=== PATIENT | female | born 1955 | race Caucasian/White ===

== ENCOUNTER 2016-11-27 08:18 | Emergency (ER) | payer MEDICAID ==
--- NOTE | 2016-11-27 09:32 | ED Physician Documentation ---
PD HPI NVD - Stated complaint Stated Complaint: VOMITING - Chief complaint Chief Complaint: Abd Pain - History obtained from History obtained from: Patient - History of Present Illness Timing - onset: How many days ago (3) Timing - duration: Days (3) Timing - details: Gradual onset, Still present Associated symptoms: Dizzy. No: Fever, Abdominal pain Contributing factors: No: Sick contact, Bad food Similar symptoms before: Diagnosis (intractable vomiting.) Recently seen: Not recently seen Review of Systems Constitutional: denies: Fever Eyes: denies: Decreased vision Ears: denies: Ear pain Nose: denies: Congestion Throat: denies: Sore throat Cardiac: denies: Chest pain / pressure, Palpitations Respiratory: denies: Dyspnea, Cough GI: reports: Abdominal Pain, Nausea, Vomiting : denies: Dysuria, Frequency PD PAST MEDICAL HISTORY - Past Medical History Cardiovascular: Hypertension Respiratory: None Neuro: None Endocrine/Autoimmune: None Psych: None Musculoskeletal: Osteoarthritis, Fatigue, Chronic back pain - Past Surgical History Past Surgical History: No - Present Medications Home Medications: Ambulatory Orders Medication Instructions Recorded Confirmed Promethazine [Phenergan] 25 - 50 mg PO Q6H PRN #10 tab 11/27/16 - Allergies Allergies/Adverse Reactions: Allergies Allergy/AdvReac Type Severity Reaction Status Date / Time losartan potassium * Allergy Hives Verified 11/27/16 08:25 [From Cozaar] Penicillins Allergy Unknown Verified 11/27/16 08:24 - Social History Does the pt smoke?: No Smoking Status: Former smoker Does the pt drink ETOH?: No Does the pt have substance abuse?: No - Immunizations Immunizations are current?: Yes PD ED PE NORMAL - Vitals Vital signs reviewed: Yes (hypertensive and tachycardic) - General General: Alert and oriented X 3, Well developed/nourished, Other (The patient is wretching loudly in the ED. ) - HEENT HEENT: Atraumatic, PERRL, EOMI, Other (dry mucous membranes) - Neck Neck: Supple, no meningeal sign, No bony TTP - Cardiac Cardiac: No murmur, Other (tachy ) - Respiratory Respiratory: No respiratory distress, Clear bilaterally - Abdomen Abdomen: Soft, Other (mild epigastric tenderness) - Back Back: No CVA TTP, No spinal TTP - Derm Derm: Normal color, Warm and dry, No rash - Extremities Extremities: No deformity, No edema - Neuro Neuro: No motor deficit - Psych Psych: Normal mood, Normal affect Results - Vitals Vitals: Vital Signs - 24 hr 11/27/16 11/27/16 11/27/16 08:25 10:00 11:00 Temperature 36.5 C Heart Rate 126 H 108 H 112 H Respiratory 22 18 20 Rate Blood Pressure 138/99 H 184/100 H 201/110 H O2 Saturation 99 96 96 11/27/16 11/27/16 11/27/16 12:15 13:45 14:00 Temperature Heart Rate 110 H 102 H 98 Respiratory 16 12 18 Rate Blood Pressure 162/107 H 172/106 H 172/106 H O2 Saturation 97 96 Oxygen O2 Source Room air - EKG (time done) 1925 Rate: Rate (enter#) (120) Rhythm: Sinus tachycardia, LAE Intervals: Prolonged QT QRS: LVH Compare to prior EKG: Changed from prior EKG (SPT 16 rate has increased. ) Computer interpretation: Agree with computer - Labs Labs: Laboratory Tests 11/27/16 11/27/16 11/27/16 09:12 09:30 09:30 WBC 21.7 H RBC 5.94 H Hgb 17.0 H Hct 50.4 H MCV 84.8 MCH 28.7 MCHC 33.8 RDW 14.2 Plt Count 247 MPV 10.1 Neut # 14.3 H Lymph # 6.0 H [place] # 1.4 H Eos # 0.0 Baso # 0.0 Absolute Nucleated RBC 0.00 Nucleated RBCs 0.0 Manual Slide Review Indicated RBC Morph Micro Appear 1+ ANISOCYTOSIS Sodium 131 L Potassium 3.0 L Chloride 88 L Carbon Dioxide 26 Anion Gap 17.0 H BUN 39 H Creatinine 1.4 H Estimated GFR (MDRD) 38 L Glucose 179 H Calcium 9.9 Magnesium 2.3 Total Bilirubin 1.5 H AST 65 H ALT 42 Alkaline Phosphatase 72 Troponin I Total Protein 8.7 H Albumin 5.5 Globulin 3.2 Albumin/Globulin Ratio 1.7 Lipase 30 Urine Color Urine Clarity Urine pH Ur Specific [place] Urine Protein Urine Glucose (UA) Urine Ketones Urine Occult Blood Urine Nitrite Urine Bilirubin Urine Urobilinogen Ur Leukocyte Esterase Urine RBC Urine WBC Ur Squamous Epith Cells Urine Bacteria Ur Microscopic Review Urine Culture Comments 11/27/16 11/27/16 11/27/16 09:30 09:45 11:48 WBC RBC Hgb Hct MCV MCH MCHC RDW Plt Count MPV Neut # Lymph # [place] # Eos # Baso # Absolute Nucleated RBC Nucleated RBCs Manual Slide Review RBC Morph Micro Appear Sodium Potassium Chloride Carbon Dioxide Anion Gap BUN Creatinine Estimated GFR (MDRD) Glucose Calcium Magnesium Total Bilirubin AST ALT Alkaline Phosphatase Troponin I 0.35 0.28 Total Protein Albumin Globulin Albumin/Globulin Ratio Lipase Urine Color DARK YELLOW Urine Clarity CLEAR Urine pH 5.5 Ur Specific [place] >=1.030 H Urine Protein 100 H Urine Glucose (UA) NEGATIVE Urine Ketones TRACE Urine Occult Blood MODERATE H Urine Nitrite NEGATIVE Urine Bilirubin NEGATIVE Urine Urobilinogen 0.2 (NORMAL) Ur Leukocyte Esterase TRACE H Urine RBC 0-5 Urine WBC 4-5 Ur Squamous Epith Cells FEW Squamous Urine Bacteria Many H Ur Microscopic Review INDICATED Urine Culture Comments INDICATED 11/27/16 17:36 WBC RBC Hgb Hct MCV MCH MCHC RDW Plt Count MPV Neut # Lymph # [place] # Eos # Baso # Absolute Nucleated RBC Nucleated RBCs Manual Slide Review RBC Morph Micro Appear Sodium 134 L Potassium 3.7 Chloride 98 L Carbon Dioxide 28 Anion Gap 8.0 BUN 28 H Creatinine 0.9 Estimated GFR (MDRD) 63 L Glucose 109 H Calcium 8.2 L Magnesium Total Bilirubin AST ALT Alkaline Phosphatase Troponin I Total Protein Albumin Globulin Albumin/Globulin Ratio Lipase Urine Color Urine Clarity Urine pH Ur Specific [place] Urine Protein Urine Glucose (UA) Urine Ketones Urine Occult Blood Urine Nitrite Urine Bilirubin Urine Urobilinogen Ur Leukocyte Esterase Urine RBC Urine WBC Ur Squamous Epith Cells Urine Bacteria Ur Microscopic Review Urine Culture Comments PD MEDICAL DECISION MAKING - ED course Complexity details: reviewed old records, reviewed results, re-evaluated patient , considered differential, d/w patient ED course: 61 y/o female with vomiting and dehydration is found to have hypokalemia as well. She is not initially able to do oral potassium and she is given K+ rider X 2 and her K+ is up to 3.7 . She feels much improved and we will send her home with a script for phenergan. She was initially considered for hospitalization, the hospitalist was consulted and recommended attempting outpatient management as her vomiting was under control. She did have an initial trop elevated to 0.35 and the repeat was 0.28 and I have ascribed this to the persistent tachycardia that is now resolved. Departure - Departure Disposition: Home, Self Care Clinical Impression: Dehydration, Hyponatremia Vomiting Qualifiers: Vomiting type: unspecified Vomiting Intractability: non-intractable Nausea presence: with nausea Qualified Code(s): R11.2 - Nausea with vomiting, unspecified Instructions: ED Dehydration, ED Nausea Vomiting Follow-Up: Sasha Wilcox ARNP [Primary Care Provider] - Prescriptions: Promethazine [Phenergan] 25 - 50 mg PO Q6H PRN #10 tab PRN Reason: Nausea / Vomiting
[2016-11-27] MEDS ORDERED: ONDANSETRON 4 MG/2 ML VIAL ONE (09:37)
[2016-11-27 09:40] LABS: BASOPHILS % (AUTO) 0.1 %; EOSINOPHILS % (AUTO) 0.1 %; HCT - HEMATOCRIT 50.4 % (37.0-47.0); LYMPHOCYTES % (AUTO) 27.6 %; MEAN CORPUSCULAR HEMOGLOBIN 28.7 pg (27.0-31.0); MEAN CORPUSCULAR HGB CONC 33.8 g/dL (32.0-36.0); MEAN CORPUSCULAR VOLUME 84.8 fL (81.0-99.0); MEAN PLATELET VOLUME 10.1 fL (7.9-10.8); MONOCYTES # (AUTO) 1.4 10^3/uL (0.0-1.0); MONOCYTES % (AUTO) 6.3 %; NEUTROPHILS # (AUTO) 14.3 10^3/uL (1.5-6.6); NEUTROPHILS % (AUTO) 65.9 %; RED BLOOD COUNT 5.94 10^6/uL (4.20-5.40); RED CELL DISTRIBUTION WIDTH 14.2 % (12.0-15.0); UNCORRECTED WHITE BLOOD COUNT 21.7 x10^3/uL; WHITE BLOOD COUNT 21.7 x10^3/uL (4.8-10.8)
[2016-11-27] MEDS: ONDANSETRON 4 MG/2 ML VIAL IVP STA (09:46)
[2016-11-27] MEDS: SODIUM CHLORIDE 0.9% 1,000 ML IV ONE ×2 (09:47→14:15)
[2016-11-27 09:53] LABS: ALBUMIN/GLOBULIN RATIO 1.7 (1.0-2.2); BILIRUBIN,TOTAL 1.5 mg/dL (0.2-1.0); CALCIUM 9.9 mg/dL (8.5-10.3); CREATININE 1.4 mg/dL (0.4-1.0); TOTAL PROTEIN 8.7 g/dL (6.7-8.2)
[2016-11-27] MEDS ORDERED: PROMETHAZINE 25 MG/1 ML VIAL ONE (10:12)
[2016-11-27] MEDS: PROMETHAZINE INJ 25 MG in SODIUM CHLORIDE 0.9% 50 ML IV STA (10:17)
[2016-11-27 10:23] LABS: PH,URINE 5.5 PH (5.0-7.5)
[2016-11-27 10:30] LABS: BILIRUBIN,URINE NEGATIVE (NEGATIVE); UA w/ MICROSCOPIC CHARGE YES
[2016-11-27 10:42] LABS: UR CULTURE IF IND INDICATED
[2016-11-27] MEDS ORDERED: POTASSIUM BICARB 25 MEQ TABLET PO ONE (11:06)
[2016-11-27] MEDS ORDERED: MAGNESIUM SULFATE 2 GRAM 50 ML IV ONE (11:06)
[2016-11-27] MEDS: POTASSIUM BICARB 25 MEQ TABLET PO STA (11:12)
[2016-11-27] MEDS: MAGNESIUM SULFATE 2 GRAM 50 ML IV ONE (11:12)
[2016-11-27] MEDS ORDERED: HYDROmorphone 1 MG/ML SYRINGE ONE (14:07)
[2016-11-27] MEDS ORDERED: metroNIDAZOLE 500 MG/100 ML 100 ML ONE (14:08)
[2016-11-27] MEDS ORDERED: POTASSIUM CHLOR 10 MEQ/100 ML 100 ML IV ONE ×2 (14:49→16:14)
[2016-11-27] MEDS: POTASSIUM CHLOR 10 MEQ/100 ML 100 ML IV SCH (14:54)
[2016-11-27] MEDS: POTASSIUM CHLOR 10 MEQ/100 ML 100 ML IV ONE (16:19)
[2016-11-27 18:03] LABS: CALCIUM 8.2 mg/dL (8.5-10.3); CREATININE 0.9 mg/dL (0.4-1.0); POTASSIUM 3.7 mmol/L (3.5-5.0)
[2016-11-27 18:29] VITALS: BP 162/101
== END 2016-11-27 18:45 | disposition home or self-care (01) ==
LOC: ED 08:18
DX: E86.0 Dehydration (principal); E87.1 Hypo-osmolality and hyponatremia; I10 Essential (primary) hypertension; M19.90 Unspecified osteoarthritis, unspecified site; Z87.891 Personal history of nicotine dependence
CPT/HCPCS: 36415; 80048; 80053; 81001; 81003; 83690; 83735; 84484; 85025; 87086; 93005; 93010; 96365; 96375; 99284

== ENCOUNTER 2016-12-02 13:55 | Emergency (ER) | payer MEDICAID ==
[2016-12-02] MEDS ORDERED: SODIUM CHLORIDE 0.9% 1,000 ML IV ONE (14:33)
[2016-12-02] MEDS ORDERED: METOPROLOL SUCCINATE 25 MG TABLET PO STA (15:59)
[2016-12-02] MEDS ORDERED: ASPIRIN CHEW 81 MG TABLET PO STA (15:59)
[2016-12-02] MEDS ORDERED: LACTATED RINGERS 1,000 ML IV STA (16:06)
== END 2016-12-02 16:56 | disposition home or self-care (01) ==
DX: I10 Essential (primary) hypertension (principal); R06.00 Dyspnea, unspecified; R11.2 Nausea with vomiting, unspecified; R53.1 Weakness; R53.83 Other fatigue; Z91.14 Patient's other noncompliance with medication regimen; Z87.891 Personal history of nicotine dependence
CPT/HCPCS: 36415; 71010; 80053; 82550; 82553; 83690; 84484; 85025; 85379; 93005; 93010; 96360; 96361; 99284; 99285; A9270

== ENCOUNTER 2017-06-18 09:36 | Inpatient (IN) | payer MEDICAID ==
[2017-06-18] MEDS ORDERED: SODIUM CHLORIDE 0.9% 1,000 ML IV ONE ×2 (11:37→13:55)
[2017-06-18] MEDS ORDERED: ONDANSETRON 4 MG/2 ML VIAL IVP STA (11:37)
[2017-06-18 11:45] LABS: BASOPHILS # (AUTO) 0.1 10^3/uL (0.0-0.1); BASOPHILS % (AUTO) 0.3 %; HCT - HEMATOCRIT 50.8 % (37.0-47.0); HGB - HEMOGLOBIN 16.8 g/dL (12.0-16.0); LYMPHOCYTES % (AUTO) 21.6 %; MEAN CORPUSCULAR HEMOGLOBIN 28.2 pg (27.0-31.0); MEAN CORPUSCULAR VOLUME 85.4 fL (81.0-99.0); MEAN PLATELET VOLUME 9.8 fL (7.9-10.8); MONOCYTES # (AUTO) 1.3 10^3/uL (0.0-1.0); MONOCYTES % (AUTO) 5.6 %; NEUTROPHILS # (AUTO) 16.9 10^3/uL (1.5-6.6); NEUTROPHILS % (AUTO) 72.5 %; NUCLEATED RED BLOOD CELLS AUTO 0.1 /100WBC; RED BLOOD COUNT 5.95 10^6/uL (4.20-5.40); RED CELL DISTRIBUTION WIDTH 14.3 % (12.0-15.0); UNCORRECTED WHITE BLOOD COUNT 23.3 x10^3/uL; WHITE BLOOD COUNT 23.3 x10^3/uL (4.8-10.8)
[2017-06-18] MEDS ORDERED: ONDANSETRON 4 MG/2 ML VIAL ONE (11:46)
[2017-06-18 12:00] LABS: ALBUMIN/GLOBULIN RATIO 1.6 (1.0-2.2); CALCIUM 10.3 mg/dL (8.5-10.3); POTASSIUM 3.9 mmol/L (3.5-5.0); TOTAL PROTEIN 9.9 g/dL (6.7-8.2)
[2017-06-18 12:37] LABS: PLATELET ESTIMATE, MANUAL NORMAL (130-450,000) (NORMAL); PLATELET MORPHOLOGY NORMAL APPEARANCE (NORMAL); WBC MORPHOLOGY (MULTIPLE) NORMAL APPEARANCE (NORMAL)
[2017-06-18] MEDS ORDERED: PROMETHAZINE INJ 25 MG in SODIUM CHLORIDE 0.9% 50 ML IV STA ×2 (13:04→16:30)
[2017-06-18] MEDS ORDERED: PROMETHAZINE 25 MG/1 ML VIAL ONE (13:22)
--- NOTE | 2017-06-18 16:14 | ED Physician Documentation ---
History of Present Illness - Stated complaint Stated Complaint: VOMITING - Chief complaint Chief Complaint: Abd Pain - Additonal information Additional information: pt with a long hx of cyclic vomiting syndrome to ER today with several days of intractable vomiting no sig abd pain no diarrhea no bad food travel sick contacts etc just like her prior episodes of same she had PO phenergan but could not keep it down she called her PMD for MS phenergan but PMD sent her to the ER for eval Review of Systems Constitutional: denies: Fever, Chills Throat: denies: Sore throat Cardiac: denies: Chest pain / pressure Respiratory: denies: Dyspnea GI: reports: Nausea, Vomiting. denies: Abdominal Pain, Diarrhea : denies: Now EGA Neurologic: reports: Generalized weakness Endocrine: denies: Easy bruising / bleeding Immunocompromised: denies: Immunocompromised PD PAST MEDICAL HISTORY - Past Medical History Cardiovascular: Hypertension Respiratory: None Neuro: None Endocrine/Autoimmune: None Psych: None Musculoskeletal: Osteoarthritis, Fatigue, Chronic back pain - Past Surgical History Past Surgical History: No - Present Medications Home Medications: Ambulatory Orders Medication Instructions Recorded Confirmed Promethazine [Phenergan] 25 - 50 mg PO Q6H PRN #10 tab 11/27/16 06/18/17 Metoprolol Succinate 25 mg PO DAILY #30 tab.er.24h 12/02/16 06/18/17 - Allergies Allergies/Adverse Reactions: Allergies Allergy/AdvReac Type Severity Reaction Status Date / Time losartan potassium * Allergy Hives Verified 11/27/16 08:25 [From Cozaar] Penicillins Allergy Unknown Verified 11/27/16 08:24 - Social History Does the pt smoke?: No Smoking Status: Former smoker Does the pt drink ETOH?: No Does the pt have substance abuse?: No - Immunizations Immunizations are current?: Yes - POLST Patient has POLST: No PD ED PE NORMAL - Vitals Vital signs reviewed: Yes - General General: Alert and oriented X 3, Other (retching) - HEENT HEENT: PERRL - Neck Neck: Supple, no meningeal sign - Cardiac Cardiac: RRR - Respiratory Respiratory: No respiratory distress - Abdomen Abdomen: Soft, Non tender - Derm Derm: Normal color - Neuro Neuro: Alert and oriented X 3 Results - Vitals Vitals: Vital Signs - 24 hr 06/18/17 06/18/17 06/18/17 09:38 14:00 16:45 Temperature 36.0 C L Heart Rate 128 H 111 H 106 H Respiratory 22 18 18 Rate Blood Pressure 199/119 H 181/107 H 194/113 H O2 Saturation 98 98 98 Oxygen O2 Source Room air - EKG (time done) 1303 Rate: Rate (enter#) (115) Rhythm: Sinus tachycardia [place]: Normal Intervals: Prolonged QT Ischemia: Non specific changes - Labs Labs: Laboratory Tests 06/18/17 06/18/17 06/18/17 11:30 11:30 11:30 WBC 23.3 H RBC 5.95 H Hgb 16.8 H Hct 50.8 H MCV 85.4 MCH 28.2 MCHC 33.0 RDW 14.3 Plt Count 230 MPV 9.8 Neut # 16.9 H Lymph # 5.0 H [place] # 1.3 H Eos # 0.0 Baso # 0.1 Absolute Nucleated RBC 0.03 Nucleated RBCs 0.1 Manual Slide Review Indicated WBC Morphology NORMAL APPEARANCE Platelet Estimate NORMAL (130-450,000) Platelet Morphology NORMAL APPEARANCE RBC Morph Micro Appear NORMAL APPEARANCE Sodium 131 L Potassium 3.9 Chloride 89 L Carbon Dioxide 27 Anion Gap 15.0 H BUN 28 H Creatinine 1.0 Estimated GFR (MDRD) 56 L Glucose 168 H Calcium 10.3 Magnesium Total Bilirubin 1.0 AST 44 H ALT 32 Alkaline Phosphatase 87 Troponin I 0.05 Total Protein 9.9 H Albumin 6.1 H Globulin 3.9 Albumin/Globulin Ratio 1.6 Lipase 22 06/18/17 06/18/17 14:14 14:15 WBC RBC Hgb Hct MCV MCH MCHC RDW Plt Count MPV Neut # Lymph # [place] # Eos # Baso # Absolute Nucleated RBC Nucleated RBCs Manual Slide Review WBC Morphology Platelet Estimate Platelet Morphology RBC Morph Micro Appear Sodium Potassium Chloride Carbon Dioxide Anion Gap BUN Creatinine Estimated GFR (MDRD) Glucose Calcium Magnesium 2.0 Total Bilirubin AST ALT Alkaline Phosphatase Troponin I 0.06 Total Protein Albumin Globulin Albumin/Globulin Ratio Lipase PD MEDICAL DECISION MAKING - ED course ED course: labs notable for inc WBC (was 21K another visit for similar sx) low na, midl elev glucose, trop 0.5 and 0.6 (both WNL) EKG notable for prolonged QT - so did not given any more zofran and switched to phenergan after several l NS and several IV doses of antiemetics pt not retching but still not able to tolerate much PO she is very worried to try going home because a year or two ago she was sent home and got worse and we she returned her electrolytes were so abnormal and she had a + trop and she need to be transferred to a tertiary care facility so will place in obs Departure - Departure Disposition: ED Place in Observation Clinical Impression: Hyponatremia, Dehydration, Prolonged QT interval Cyclic vomiting syndrome Qualifiers: Vomiting Intractability: intractable Nausea presence: with nausea Qualified Code(s): G43.A1 - Cyclical vomiting, intractable Hypertension Qualifiers: Hypertension type: unspecified Qualified Code(s): I10 - Essential (primary) hypertension Leukocytosis Qualifiers: Leukocytosis type: other Qualified Code(s): D72.828 - Other elevated white blood cell count Condition: Fair Discharge Date/Time: 06/18/17 17:33
[2017-06-18] MEDS ORDERED: SODIUM CHLORIDE FLUSH 0.9% 10 ML SYRINGE IVP PRN (16:59)
[2017-06-18] MEDS ORDERED: HYDROcod/ACETAM 5/325 MG TABLET PO PRN (16:59)
[2017-06-18] MEDS ORDERED: HYDROmorphone 1 MG/ML SYRINGE IVP PRN (16:59)
[2017-06-18] MEDS ORDERED: ACETAMINOPHEN 325 MG TABLET PO PRN (16:59)
--- NOTE | 2017-06-18 18:05 | CT Preliminary Report ---
Exam: CT KUB IMPRESSION: 1. Moderate hiatal hernia. 2. Moderate diverticulosis without diverticulitis or other acute abdominal abnormality. 3. Lumbar dextroscoliosis. 4. Lower edge of a well-defined lower right breast density noted. [facility] SITE ID: [id number]
--- NOTE | 2017-06-18 18:07 | CT Report ---
EXAM: CT ABDOMEN AND PELVIS EXAM DATE: 06/18/2017 05:42 PM. CLINICAL HISTORY: Nausea, vomiting. COMPARISONS: None. TECHNIQUE: Routine helical CT imaging was performed through the abdomen and pelvis. IV contrast: None . Enteric contrast: No. Reconstructions: Coronal and sagittal. In accordance with CT protocol optimization, one or more of the following dose reduction techniques w ere utilized for this exam: automated exposure control, adjustment of mA and/or KV based on patient s ize, or use of iterative reconstructive technique. FINDINGS: Lung Bases: Lower extent of a well-defined lower right breast density noted. Moderate hiatal hernia. Otherwise unremarkable. Liver: Normal. No masses. Gallbladder/Bile Ducts: Unremarkable. Spleen: Normal. Pancreas: Normal. Adrenal Glands: Normal. Kidneys: Normal. No masses or hydronephrosis. Peritoneal Cavity/Bowel: Moderate diverticulosis. No free fluid, free air or adenopathy. No masses or acute inflammatory process. Nonvisualized appendix. Pelvic Organs: Reproductive organs and bladder are unremarkable. Vasculature: No aneurysms or other significant abnormality. Bones: Lumbar dextroscoliosis. No degenerative disk disease. Other: Small fat-containing right [place]chdalek hernia noted. IMPRESSION: 1. Moderate hiatal hernia. 2. Moderate diverticulosis without diverticulitis or other acute abdominal abnormality. 3. Lumbar dextroscoliosis. 4. Lower edge of a well-defined lower right breast density noted. [facility] Referring Provider Line: [phone] SITE ID: [id number]
[2017-06-18] MEDS: SODIUM CHLORIDE 0.9% 1,000 ML IV SCH (18:19)
[2017-06-18] MEDS: PANTOPRAZOLE 40 MG VIAL IVP SCH (18:19)
[2017-06-18] MEDS: SODIUM CHLORIDE FLUSH 0.9% 10 ML SYRINGE IVP SCH (18:19)
[2017-06-18] MEDS: PROCHLORPERAZINE 10 MG/2 ML VIAL IVP PRN (18:19)
[2017-06-18] MEDS ORDERED: hydrALAZINE INJ 20 MG/ML VIAL IVP SCH (18:30)
--- NOTE | 2017-06-18 20:27 | HISTORY & PHYSICAL EXAMINATION ---
DATE OF ADMISSION: 06/18/2017 HISTORY OF PRESENT ILLNESS: This is a 62-year-old white female with a history of hypertension and int ermittent severe nausea and vomiting, for which she has had no workup and no etiology determined yet. The patient was admitted here approximately a year ago with unrelenting vomiting and electrolyte abn ormalities, and required IV hydration and anti-emetics. The patient states she has never had a gastro enterologist for evaluation. The patient does deny that any medications create the nausea and vomitin g, but suspects that she may have a "nervous stomach," since she has had nausea and vomiting when she was a child and in an anxious situation (the patient had to take carbonated beverages in the car for stomach upset and vomiting when she was very little). Now, she has noticed that over at times of str ess (such as the of her mother and stress over buying a house), she develops unrelenting vomiti ng, which does not respond to p.o. fluids and bowel rest. Two days ago, the patient went out of town to help her friend move into a new house and states that t here was stress because of the traffic in the area and unloading. While at new residence of the [facility], she developed slight abdominal pain and nausea, but the following day had severe nausea and explos chidi vomiting which did not respond to [id number] Phenergan. She came home and tried to take onl y liquids and chicken soup, and everything that she ingested came up with vomiting. There was no haim temesis. She denies any constipation or diarrhea. There was no fever. She denies any rash, cough with sputum production, exposure to anyone with the flu, and travel to an exotic area. MEDICATIONS AT HOME: Only metoprolol and Phenergan p.r.n. ALLERGIES: 1. PENICILLINS. 2. POSSIBLY TO LOSARTAN. SOCIAL HISTORY: The patient is a nonsmoker, who quit 10 years ago. She drinks very rare alcohol and d enies any illicit drug use. The patient lives alone. REVIEW OF SYSTEMS: When the patient last was seen in the emergency room here in November of this year, s he had evaluation for a similar problem and was sent home. Her symptoms did not subside, and she repr esented the following day and was noted to have extreme electrolyte abnormalities and also elevated t roponins, and required transfer for coronary angiography. The patient states that she had normal [place] n[place] arteries and was told that she had a "prolonged QT interval" and that she did not actually suffe r an acute ND, but that her troponins were elevated from demand ischemia. PHYSICAL EXAMINATION: GENERAL: Reveals a white female who is in mild distress (she describes a nausea feeling of 3/10 curre ntly) after receiving antiemetics IV in the emergency room. VITAL SIGNS: Blood pressure 180/110. Heart rate is in the 70s-80s, in a sinus rhythm. She is afebrile . HEENT: Reveals very dry mucosa of the oropharynx, but otherwise normal. NECK: Shows no JVD at a 30-degree upright angle. No carotid bruits, lymphadenopathy, or thyromegaly. CHEST: Clear. HEART: Sounds are normal. No audible murmurs. ABDOMEN: Soft and nontender, with positive bowel sounds. There is no guarding or rebound. EXTREMITIES: The legs show no edema. She has good leg pulses. She has no calf tenderness. NEUROLOGIC: Intact. LABORATORY DATA: Sodium 131, potassium 3.9, chloride 89, BUN 28, creatinine 1.0, magnesium 2.0, AST 4 4, ALT 32. Troponins are normal x2. Albumin 6.1. Lipase 22, which is normal. White blood count 23.3, with a left shift, hemoglobin 16.8, platelet count normal at 230. There was no INR done. EKG: Sinus tachycardia at a rate of 115, with late R-wave transition and no ST-T changes. An x-ray of the abdomen and pelvis showed a moderate hiatal hernia and moderate diverticulosis, witho ut diverticulitis or other abdominal abnormality. She has a well-defined lower right breast density a nd lumbar dextroscoliosis. ASSESSMENT AND PLAN: 1. Intractable vomiting requiring IV anti-emetics and bowel rest. Continue with IV hydration, anti-em etics, bowel rest, and only advance the diet when her cyclical vomiting has subsided. Because there i s a suspicion of irritable bowel syndrome with "nervous stomach," I recommended the initiation of an SSRI while she is here to watch her QT interval, and the patient is interested in starting this. [place] pro will be begun at 10 mg p.o. at bedtime. I will monitor the QT interval on her EKG for the next se veral days. 2. Dehydration. IV normal saline for the low sodium level and findings of volume depletion by labs an d physical exam. 3. Hypertension, poorly controlled. Because she cannot take p.o. blood pressure medications, she will receive hydralazine 10 mg IV x1 and also be started on a clonidine 0.1 mg patch topically every 1 we ek while here for blood pressure management. JOB #: [id number] EXT JOB #:[id number]
[2017-06-18] MEDS: ESCITALOPRAM 10 MG TABLET PO SCH (23:10)
[2017-06-19] MEDS ORDERED: ONDANSETRON 4 MG/2 ML VIAL IVP PRN (01:08)
[2017-06-19] MEDS: SODIUM CHLORIDE 0.9% 1,000 ML IV SCH ×2 (04:21→14:15)
[2017-06-19 05:52] LABS: BASOPHILS # (AUTO) 0.1 10^3/uL (0.0-0.1); BASOPHILS % (AUTO) 0.3 %; EOSINOPHILS % (AUTO) 0.1 %; HCT - HEMATOCRIT 43.1 % (37.0-47.0); HGB - HEMOGLOBIN 14.2 g/dL (12.0-16.0); LYMPHOCYTES # (AUTO) 4.6 10^3/uL (1.5-3.5); LYMPHOCYTES % (AUTO) 24.3 %; MEAN CORPUSCULAR HEMOGLOBIN 28.9 pg (27.0-31.0); MEAN CORPUSCULAR VOLUME 87.4 fL (81.0-99.0); MEAN PLATELET VOLUME 9.5 fL (7.9-10.8); MONOCYTES # (AUTO) 1.3 10^3/uL (0.0-1.0); NEUTROPHILS # (AUTO) 12.9 10^3/uL (1.5-6.6); NEUTROPHILS % (AUTO) 68.3 %; NUCLEATED RED BLOOD CELLS AUTO 0.2 /100WBC; RED BLOOD COUNT 4.93 10^6/uL (4.20-5.40); RED CELL DISTRIBUTION WIDTH 14.3 % (12.0-15.0)
[2017-06-19] MEDS ORDERED: cloNIDine 0.1 MG PATCH TOP SCH (06:00)
[2017-06-19 06:08] LABS: CALCIUM 8.7 mg/dL (8.5-10.3); CREATININE 0.6 mg/dL (0.4-1.0)
[2017-06-19] MEDS: PANTOPRAZOLE 40 MG VIAL IVP SCH ×2 (06:25→15:55)
[2017-06-19] MEDS: SODIUM CHLORIDE FLUSH 0.9% 10 ML SYRINGE IVP SCH ×3 (06:25→15:55)
[2017-06-19] MEDS: POLYETHYLENE GLYCOL 3350 17 GM PACKET PO SCH (07:37)
[2017-06-19] MEDS ORDERED: PROMETHAZINE 25 MG TABLET PO PRN (08:02)
[2017-06-19] MEDS: METOPROLOL SUCCINATE 25 MG TABLET PO SCH (08:39)
[2017-06-19] MEDS ORDERED: POTASSIUM CHLORIDE 20 MEQ TABLET PO SCH (12:39)
--- NOTE | 2017-06-19 12:46 | PROVIDER PROGRESS NOTE ---
Subjective - Prog Note Date Prog Note Date: 06/19/17 Prog Note Time: 12:44 - Subjective Pt reports feeling: Improved Subjective: she stopped having emesis. no abd pain wants to start eating. she relates a long hx of incidents of stress then accompanied by N/V Current Medications - Current Medications Current Medications: Active Medications Acetaminophen (Tylenol) 650 mg PO Q4HR PRN PRN Reason: Pain 1 to 4 Acetaminophen/Hydrocodone Bitart ([place] 5/325) 1 tab PO Q4HR PRN PRN Reason: Pain 5 to 7 Clonidine HCl (Rxicvntk-Ivh-4) 1 patch TOP Q7D [facility] Last Admin: 06/19/17 06:25 Dose: 1 patch Escitalopram Oxalate (Lexapro) 10 mg PO QPM [facility] Last Admin: 06/18/17 23:10 Dose: Not Given Hydromorphone HCl (Dilaudid Inj) 1 mg IVP Q2HR PRN PRN Reason: Pain 8 to 10 Sodium Chloride (Normal Saline 0.9%) 1,000 mls @ 100 mls/hr IV .Q10H [facility] Last Admin: 06/19/17 04:21 Dose: 100 mls/hr Metoprolol Succinate (Toprol Xl) 25 mg PO DAILY [facility] Last Admin: 06/19/17 08:39 Dose: 25 mg Ondansetron HCl (Zofran Inj) 4 mg IVP Q4HR PRN PRN Reason: Nausea / Vomiting Pantoprazole Sodium (Protonix) 40 mg IVP BIDAC [facility] Last Admin: 06/19/17 06:25 Dose: 40 mg Polyethylene Glycol (Miralax) 17 gm PO DAILY [facility] Last Admin: 06/19/17 07:37 Dose: Not Given Potassium Chloride (K-Dur) 40 meq PO ONCE STA Stop: 06/19/17 12:40 Prochlorperazine Edisylate (Compazine Inj) 10 mg IVP Q6HR PRN PRN Reason: Nausea / Vomiting Last Admin: 06/18/17 18:19 Dose: 10 mg Promethazine HCl (Phenergan) 50 mg PO Q6H PRN PRN Reason: Nausea / Vomiting Sodium Chloride (Normal Saline Flush 0.9%) 10 ml IVP PRN PRN PRN Reason: NEEDED PER PROVIDER ORDERS Sodium Chloride (Normal Saline Flush 0.9%) 10 ml IVP Q8HR [facility] Last Admin: 06/19/17 06:25 Dose: 10 ml Cyclobenzaprine [Flexeril] 10 mg PO TID PRN 06/19/17 Losartan [Cozaar] 50 mg PO DAILY 06/19/17 Objective - Vital Signs/Intake & Output Reviewed Vital Signs: Yes Vital Signs: Vital Signs x48h Temp Pulse Resp BP BP Pulse Ox 06/19/17 07:29 37.1 C 98 18 174/93 H 164/106 H 96 Intake & Output: Intake & Output 06/16/17 06/17/17 06/18/17 06/19/17 23:59 23:59 23:59 23:59 Intake Total 697 Balance 697 - Objective General Appearance: positive: No acute distress, Alert, Other (slender middle aged white female) Eyes Bilateral: positive: PERRL ENT: positive: Pharynx nml Neck: positive: No JVD. negative: Stiff neck, Carotid bruit Respiratory: positive: Chest non-tender. negative: Wheezes, Rales, Rhonchi Cardiovascular: positive: Regular rate & rhythm, No murmur. negative: Gallop/S4 , Friction rub Abdomen: positive: Non-tender, No organomegaly, Nml bowel sounds, No distention Skin: positive: Color nml, No rash, Warm, Dry Extremities: positive: Non-tender, No pedal edema Neurologic/Psychiatric: positive: Oriented x3, CN's nml (2-12), Motor nml, Sensation nml - Lab Results Fish Bones: 06/19/17 05:36 06/19/17 05:36 Other Labs: Lab Results x24hrs 06/19/17 06/19/17 Range/Units 05:36 05:36 WBC 19.0 H (4.8-10.8) x10^3/uL RBC 4.93 (4.20-5.40) 10^6/uL Hgb 14.2 (12.0-16.0) g/dL Hct 43.1 (37.0-47.0) % MCV 87.4 (81.0-99.0) fL MCH 28.9 (27.0-31.0) pg MCHC 33.0 (32.0-36.0) g/dL RDW 14.3 (12.0-15.0) % Plt Count 184 (130-450) 10^3/uL MPV 9.5 (7.9-10.8) fL Neut # 12.9 H (1.5-6.6) 10^3/uL Lymph # 4.6 H (1.5-3.5) 10^3/uL [place] # 1.3 H (0.0-1.0) 10^3/uL Eos # 0.0 (0.0-0.7) 10^3/uL Baso # 0.1 (0.0-0.1) 10^3/uL Absolute Nucleated RBC 0.04 x10^3/uL Nucleated RBCs 0.2 /100WBC Sodium 137 (135-145) mmol/L Potassium 3.0 L (3.5-5.0) mmol/L Chloride 102 (101-111) mmol/L Carbon Dioxide 24 (21-32) mmol/L Anion Gap 11.0 (6-13) BUN 14 (6-20) mg/dL Creatinine 0.6 (0.4-1.0) mg/dL Estimated GFR (MDRD) 101 (>89) Glucose 120 H (70-100) mg/dL Calcium 8.7 (8.5-10.3) mg/dL Magnesium 2.0 (1.7-2.8) mg/dL Assessment/Plan - Problem List (1) Cyclic vomiting syndrome Impression: questionably associated with stress lexapro started advised to find a biofeedback technique responded to antiemetics, IVF start clear liquids today and advance. anticipate dc in am. Qualifiers: Vomiting Intractability: intractable Nausea presence: with nausea Qualified Code(s): G43.A1 - Cyclical vomiting, intractable (2) Hypertension Impression: is only on losartan at home started on metoprolol and clonidine here and still high. Goal <140 systolic continue meds and adjust as needed. Qualifiers: Hypertension type: unspecified Qualified Code(s): I10 - Essential (primary ) hypertension (3) Dehydration Impression: Laboratory Tests 06/18/17 06/19/17 11:30 05:36 BUN 28 H 14 Creatinine 1.0 0.6 resolved. can stop IVF and see how she does.
[2017-06-19] MEDS ORDERED: CYCLOBENZAPRINE 10 MG TABLET PO PRN (18:57)
[2017-06-19] MEDS: ESCITALOPRAM 10 MG TABLET PO SCH (20:27)
[2017-06-19] MEDS: PROCHLORPERAZINE 10 MG/2 ML VIAL IVP PRN (22:12)
[2017-06-20] MEDS: SODIUM CHLORIDE 0.9% 1,000 ML IV SCH ×2 (01:17→01:27)
[2017-06-20] MEDS: SODIUM CHLORIDE FLUSH 0.9% 10 ML SYRINGE IVP SCH ×2 (01:34→07:01)
[2017-06-20] MEDS: PANTOPRAZOLE 40 MG VIAL IVP SCH (07:00)
[2017-06-20 08:09] VITALS: BP 159/106
--- NOTE | 2017-06-20 08:18 | Discharge Plan ---
Discharge Plan Disposition: 01 Home, Self Care Condition: Fair Prescriptions: Escitalopram [Lexapro] 5 mg PO QPM #15 tablet Promethazine Supp [Phenergan Supp] 25 mg LA QID PRN #30 supp PRN Reason: Nausea / Vomiting Ondansetron Odt [Zofran] 4 mg SL QID PRN #30 PRN Reason: Nausea / Vomiting Diet: Regular Activity Restrictions: Activity as Tolerated Shower Restrictions: No Driving Restrictions: No Additional Instructions or Follow Up instructions: You were admitted for intractable nausea and vomiting and were finally able to tolerate food after a day of IV fluids, IV antinausea medicines, and IV antacids. You have none of the usual causes for intractable nausea and vomiting. For instance we do not suspect cyclical vomiting from cannabis. You are being discharged with a new medication for Lexapro. We wonder if there is a correlation or link between your stress and nausea and vomiting. It is a 10 mg tablet, take half of a tablet at night. See if it works in the next month and asked your primary care provider for a refill at 10 mg at night. I have also suggested that you may want to learn a biofeedback technique to control stress and its reaction. The only other thing we noticed during your stay was a very elevated blood pressure in spite of using losartan, Catapres patch, and metoprolol. You have shared with us that this is a chronic ongoing problem with you. You have a willow machine tender that sees you for this. There is a rare link between nausea and vomiting and blood pressure. You may be a candidate for an MRI of the brain. Please discuss this with your willow machine tender or your primary care provider. I have given you a copy of your blood pressure readings during the stay. Please share those with your willow machine tender. No Smoking: If you smoke, Please STOP! Call for help. Follow-up with: Sasha Wilcox ARNP [Primary Care Provider] -
[2017-06-20] MEDS ORDERED: LOSARTAN 50 MG TABLET PO SCH (09:00)
[2017-06-20] MEDS: POLYETHYLENE GLYCOL 3350 17 GM PACKET PO SCH (09:06)
[2017-06-20] MEDS: METOPROLOL SUCCINATE 25 MG TABLET PO SCH (09:07)
[2017-06-20] MEDS ORDERED: POTASSIUM CHLORIDE 20 MEQ TABLET PO ONE (10:07)
--- NOTE | 2017-06-20 17:48 | DISCHARGE SUMMARY ---
DATE OF ADMISSION: 06/18/2017 DATE OF DISCHARGE: 06/20/2017 DISCHARGE DIAGNOSES: 1. Vomiting. 2. Dehydration. 3. Hypertensive urgency. 4. Probable anxiety disorder. DISCHARGE MEDICATIONS: 1. Cozaar 50 mg a day. 2. Flexeril 10 mg p.o. t.i.d. p.r.n.. 3. Lexapro 10 mg tablet, 1/2 tablet a day for the next month and may increase to a full tablet a day depending on primary care provider feedback. 4. Phenergan 25 mg tablet 1 tablet every 6 hours as needed for nausea and vomiting. 5. Phenergan suppository 25 mg per rectum q.i.d. p.r.n. nausea, vomiting. 6. Metoprolol-XL 25 mg daily. The patient states she may not take that because she does not like how she feels on it. 7. Zofran 4 mg sublingual q.i.d. b.i.d.. PRINCIPAL PROCEDURES: Abdomen pelvis CT that was unremarkable. HOSPITAL COURSE: She is a 62-year-old white female who has severe nausea and vomiting in relation to stress. When the stressful event happens she can almost feel it coming on and she tries desperately n ot to get nauseated, but that is because she knows that once she starts getting nauseated the vomitin g starts and does not stop. She has had a previous episode of vomiting in our hospital on discharge. She returns with intractable nausea and vomiting causing hyponatremia, elevated anion gap, elevated B UN. A CT of the abdomen and pelvis was negative. She has demargination with a white cell count at 23. Wit h IV fluids and hydration and antiemetics, all of her symptomatology went away. Sodium normalized. Po tassium remained mildly reduced since she needed supplementation. What was interesting was blood pres sure was very high during her stay. She shares with us that her blood pressure is high in the outpati ent setting and has been seen by Cardiology. Numerous drugs have been tried and none have been succes sful to completely control her blood pressure. I did print up all of her blood pressure readings for her to take to her next Cardiology visit. We did try clonidine patch, but she says she has been tried on that in the past. We also resumed her metoprolol but she hates how she feels on it. Losartan was continued. On the day of discharge, blood pressure was 159/106 and she says that is nothing unusual f or her. I do recommend that she get an outpatient followup with possible MRI since her hypertensive urgency c an be causing nausea and vomiting. Please make sure that she mentions that to her primary care provid er. Because some of her nausea and vomiting is associated with stress we started her on Lexapro 10 mg 1/2 tablet a day. She will followup with her primary care provider and see if she needs to continue that and go to a full 10 mg a day. She asked for a prescription for Phenergan suppositories in addition t o her already small bottle of pills. I also gave her Zofran sublingual. She is discharged in stable condition. She was transitioned from n.p.o. status to full diet. Tolerati ng food now for 24 hours without any nausea and vomiting. Temperature is 37, pulse 92, blood pressure is 159/106, respirations 18, 96% on room air. She is an alert, slender, middle-aged female with morris r lungs, a regular rate and rhythm. A benign abdominal exam. She ambulates in the room without any at axia or need for assistance. Greater than 30 minutes was spent coordinating discharge, discussing her hypertension treatment, and requesting followup for her. She is discharged in stable condition. JOB #: [id number] EXT JOB #:[id number]
== END 2017-06-20 10:15 | disposition home or self-care (01) | DRG 103 ==
LOC: ED 09:36 → MS2 16:55
PROVIDERS: ADMIT Internal Medicine; ATTEND Specialist
DX: G43.A0 Cyclical vomiting, in migraine, not intractable (principal); E87.1 Hypo-osmolality and hyponatremia; E86.0 Dehydration; I16.0 Hypertensive urgency; F41.9 Anxiety disorder, unspecified; E87.6 Hypokalemia; F43.9 Reaction to severe stress, unspecified; D72.829 Elevated white blood cell count, unspecified; Z87.891 Personal history of nicotine dependence; Z79.899 Other long term (current) drug therapy
CPT/HCPCS: 36415; 74176; 80048; 80053; 83690; 83735; 84484; 85025; 93005; 96365; 96375; 99283; 99284

== ENCOUNTER 2017-09-03 14:47 | Outpatient (CLI) | payer MEDICAID | END 2017-09-03 14:48 | disposition critical access hospital (66) | LOC: EMS 14:47 | PROVIDERS: ATTEND Surgery | DX: R10.32 Left lower quadrant pain (principal) | CPT/HCPCS: A0425; A0427 ==

== ENCOUNTER 2017-09-03 15:14 | Inpatient (IN) | payer MEDICAID ==
[2017-09-03 16:15] LABS: BASOPHILS % (AUTO) 0.4 %; EOSINOPHILS % (AUTO) 0.1 %; HCT - HEMATOCRIT 50.9 % (37.0-47.0); HGB - HEMOGLOBIN 16.5 g/dL (12.0-16.0); LYMPHOCYTES # (AUTO) 2.5 10^3/uL (1.5-3.5); LYMPHOCYTES % (AUTO) 32.9 %; MEAN CORPUSCULAR HEMOGLOBIN 28.8 pg (27.0-31.0); MEAN CORPUSCULAR HGB CONC 32.4 g/dL (32.0-36.0); MEAN CORPUSCULAR VOLUME 88.9 fL (81.0-99.0); MEAN PLATELET VOLUME 9.4 fL (7.9-10.8); MONOCYTES # (AUTO) 0.4 10^3/uL (0.0-1.0); MONOCYTES % (AUTO) 5.7 %; NEUTROPHILS # (AUTO) 4.7 10^3/uL (1.5-6.6); NEUTROPHILS % (AUTO) 60.9 %; NUCLEATED RED BLOOD CELLS AUTO 0.1 /100WBC; RED BLOOD COUNT 5.73 10^6/uL (4.20-5.40); RED CELL DISTRIBUTION WIDTH 14.8 % (12.0-15.0); UNCORRECTED WHITE BLOOD COUNT 7.7 x10^3/uL; WHITE BLOOD COUNT 7.7 x10^3/uL (4.8-10.8)
[2017-09-03 16:26] LABS: ALBUMIN/GLOBULIN RATIO 1.4 (1.0-2.2); BILIRUBIN,TOTAL 0.5 mg/dL (0.2-1.0); CALCIUM 9.8 mg/dL (8.5-10.3); POTASSIUM 2.9 mmol/L (3.5-5.0); TOTAL PROTEIN 7.7 g/dL (6.7-8.2)
--- NOTE | 2017-09-03 17:46 | ED Physician Documentation ---
PD HPI ABD PAIN - Stated complaint Stated Complaint: LLQ PX - Chief complaint Chief Complaint: Abd Pain - History obtained from History obtained from: Patient - History of Present Illness Timing - onset: Today (onset early this morning, with pain awakening her from sleep. Did not have pain yesterday. Mild nausea yesterday. Had small BM this morning without change in pain.) Timing - duration: Days (1) Timing - details: Abrupt onset, Still present, Constant Quality: Cramping, Aching, Pain Location: LLQ Radiation: No: Chest, Left flank, Right flank Improved by: No: Position Worsened by: Moving, Palpation. No: Breathing, Position Associated symptoms: Nausea, Vomiting, Loss of appetite. No: Fever, Hematemesis , Diarrhea, Constipation, Melena, Dysuria, Chest pain, Vaginal dc Similar symptoms before: Has not had sx before Recently seen: Not recently seen Review of Systems Constitutional: reports: Chills, Myalgias. denies: Fever Nose: denies: Rhinorrhea / runny nose, Congestion Throat: denies: Sore throat Cardiac: denies: Chest pain / pressure Respiratory: denies: Cough GI: reports: Abdominal Pain, Nausea, Vomiting. denies: Abdominal Swelling, Diarrhea : denies: Dysuria, Frequency Skin: denies: Rash, Lesions Musculoskeletal: reports: Back pain (chronic), Other (chronic diffuse muscle aches). denies: Extremity pain, Extremity swelling Neurologic: reports: Generalized weakness. denies: Focal weakness, Numbness, Near syncope Psychiatric: reports: Anxiety. denies: Depressed Endocrine: denies: Weight loss, Easy bruising / bleeding Immunocompromised: denies: Immunocompromised PD PAST MEDICAL HISTORY - Past Medical History Past Medical History: Yes Cardiovascular: Hypertension, Arrhythmia Respiratory: None Neuro: None Endocrine/Autoimmune: None GI: Other : None Psych: None Musculoskeletal: Osteoarthritis, Fatigue, Chronic back pain Derm: None Other Past Medical History: Prolonged QT - Past Surgical History Past Surgical History: No - Present Medications Home Medications: Ambulatory Orders Medication Instructions Recorded Confirmed Promethazine [Phenergan] 25 - 50 mg PO Q6H PRN #10 tab 11/27/16 09/03/17 Cyclobenzaprine [Flexeril] 10 mg PO TID PRN 06/19/17 09/03/17 Losartan [Cozaar] 50 mg PO DAILY 06/19/17 09/03/17 Promethazine Supp [Phenergan Supp] 25 mg WI QID PRN #30 supp 06/20/17 09/03/17 - Allergies Allergies/Adverse Reactions: Allergies Allergy/AdvReac Type Severity Reaction Status Date / Time Penicillins Allergy Unknown Verified 11/27/16 08:24 losartan potassium * AdvReac Unknown Verified 06/19/17 09:22 [From Cozaar] - Social History Does the pt smoke?: No Smoking Status: Never smoker Does the pt drink ETOH?: No Does the pt have substance abuse?: No - Family History Family history: reports: Non contributory - Immunizations Immunizations are current?: Yes - POLST Patient has POLST: No PD ED PE NORMAL - Vitals Vital signs reviewed: Yes (hypertensive in ED) - General General: Alert and oriented X 3, Well developed/nourished, Other (appears uncomfortable) - HEENT HEENT: PERRL (nonicteric), Pharynx benign - Neck Neck: Supple, no meningeal sign, No adenopathy - Cardiac Cardiac: No murmur. No: RRR (regular but tachycardic) - Respiratory Respiratory: Clear bilaterally - Abdomen Abdomen: Non distended, No organomegaly, Other (tender left abd mainly LLQ, with local guarding and percussion tenderness. No referred from rest of abd. Localized but not generalized rebound. No CVA tenderness. ). No: Normal bowel sounds (diminished) - Female Female : Deferred - Rectal Rectal: Deferred - Back Back: No CVA TTP - Derm Derm: Warm and dry. No: Normal color (somewhat pale) - Extremities Extremities: No deformity, No tenderness to palpate, Normal ROM s pain, No edema , No calf tenderness / cord - Neuro Neuro: Alert and oriented X 3, No motor deficit, Normal speech Eye Opening: Spontaneous Motor: Obeys Commands Verbal: Oriented GCS Score: 15 - Psych Psych: Normal mood Results - Vitals Vitals: Vital Signs - 24 hr 09/03/17 09/03/17 09/03/17 15:17 17:45 19:16 Temperature 35.5 C L 36.5 C 35.6 C L Heart Rate 112 H 100 96 Respiratory 20 18 20 Rate Blood Pressure 185/135 H 185/138 H 175/111 H O2 Saturation 97 100 95 09/03/17 21:35 Temperature Heart Rate 111 H Respiratory 18 Rate Blood Pressure 164/109 H O2 Saturation 98 Oxygen O2 Source Room air - Labs Labs: Laboratory Tests 09/03/17 09/03/17 09/03/17 16:07 16:07 20:45 WBC 7.7 RBC 5.73 H Hgb 16.5 H Hct 50.9 H MCV 88.9 MCH 28.8 MCHC 32.4 RDW 14.8 Plt Count 299 MPV 9.4 Neut # 4.7 Lymph # 2.5 [place] # 0.4 Eos # 0.0 Baso # 0.0 Absolute Nucleated RBC 0.01 Nucleated RBC % 0.1 Sodium 137 Potassium 2.9 L Chloride 100 L Carbon Dioxide 22 Anion Gap 15.0 H BUN 18 Creatinine 1.0 Estimated GFR (MDRD) 56 L Glucose 186 H Lactic Acid 4.7 H* Calcium 9.8 Total Bilirubin 0.5 AST 29 ALT 17 Alkaline Phosphatase 72 Total Protein 7.7 Albumin 4.5 Globulin 3.2 Albumin/Globulin Ratio 1.4 Lipase 13 L - Rads (name of study) abd CT Radiology: Prelim report reviewed (diffuse inflammation c/w peritonitis, carcinomatosis, or other process. ) PD MEDICAL DECISION MAKING - ED course Complexity details: reviewed results (diffuse inflammation c/w peritonitis. No free air. No focal abscess/infection. ), considered differential (has left sided abd pain and tenderness. Most likely consider ureterolithiasis or colitis/ diverticulitis. Will get CT to better evaluate. ), d/w patient, d/w databases software consultant ( Dr. Smith and Dr. Sigala - seems likely some infectious process. Not clearly determined as surgical process. Will give IV abx targeted at colitis. ) Departure - Departure Disposition: ED Place in Observation Clinical Impression: Hypokalemia Abdominal pain Qualifiers: Abdominal location: left lower quadrant Qualified Code(s): R10.32 - Left lower quadrant pain Condition: Stable Record reviewed to determine appropriate education?: Yes Discharge Date/Time: 09/03/17 21:58
[2017-09-03] MEDS ORDERED: HYDROmorphone 1 MG/ML SYRINGE IVP STA ×2 (18:02→20:35)
[2017-09-03] MEDS ORDERED: KETOROLAC 60 MG/2 ML VIAL IVP STA (18:02)
[2017-09-03] MEDS ORDERED: SODIUM CHLORIDE 0.9% 1,000 ML IV ONE ×2 (18:02→21:29)
[2017-09-03] MEDS ORDERED: PROMETHAZINE INJ 6.25 MG in SODIUM CHLORIDE 0.9% 50 ML IV STA (18:03)
[2017-09-03] MEDS ORDERED: KETOROLAC 30 MG/ML VIAL ONE (18:32)
[2017-09-03] MEDS ORDERED: HYDROmorphone 1 MG/ML SYRINGE ONE ×2 (18:32→21:45)
[2017-09-03] MEDS ORDERED: PROMETHAZINE 25 MG/1 ML VIAL ONE (18:38)
--- NOTE | 2017-09-03 19:32 | CT Preliminary Report ---
Exam: CT KUB IMPRESSION: 1. New diffuse intraperitoneal inflammatory changes with omental stranding and a very small amount of free fluid. These findings may reflect diffuse peritonitis, peritoneal carcinomatosis, or other diff use intraperitoneal inflammatory process. 2. Round were prolapse of the distal rectum in the low pelvis. 3. No mechanical bowel obstruction. Stomach is distended with fluid. 4. Nonspecific ovoid density in the inferior right breast is without significant interval change and nonspecific. [facility] SITE ID: [id number]
--- NOTE | 2017-09-03 19:35 | CT Report ---
EXAM: CT ABDOMEN AND PELVIS EXAM DATE: 09/03/2017 07:14 PM. CLINICAL HISTORY: Llq pain since this morning, awoke from sleep. COMPARISONS: 06/18/2017. TECHNIQUE: Routine helical CT imaging was performed through the abdomen and pelvis. IV contrast: No. Enteric contrast: No. Reconstructions: Coronal and sagittal. In accordance with CT protocol optimization, one or more of the following dose reduction techniques w ere utilized for this exam: automated exposure control, adjustment of mA and/or KV based on patient s ize, or use of iterative reconstructive technique. FINDINGS: Lung Bases: There is a right basilar Bochdalek hernia which appears unchanged. Liver: Normal in size and contour. Gallbladder/Bile Ducts: Unremarkable. Spleen: Normal in size. Pancreas: Normal in contour. Adrenal Glands: Normal. Kidneys: No kidney stones or hydronephrosis. Peritoneal Cavity/Bowel: There is new fat stranding along the left paracolic gutter and adjacent to t he descending colon. There is fat stranding around the sigmoid colon and rectum in the pelvis. There is fat stranding along the right paracolic gutter which appears new. There is diffuse increased densi ty of mesenteric fat. There is a very small volume of free fluid. The stomach appears distended with fluid. Pelvic Organs: There is evidence of pelvic floor prolapse with downward protrusion of the rectum. Vasculature: Abdominal aorta is normal in caliber. Bones: No significant abnormality. Other: There is an ovoid soft tissue density in the inferior right breast measuring 2.4 x 0.8 cm. Not significantly changed. IMPRESSION: 1. New diffuse intraperitoneal inflammatory changes with omental stranding and a very small amount of free fluid. These findings may reflect diffuse peritonitis, peritoneal carcinomatosis, or other diff use intraperitoneal inflammatory process. 2. Round were prolapse of the distal rectum in the low pelvis. 3. No mechanical bowel obstruction. Stomach is distended with fluid. 4. Nonspecific ovoid density in the inferior right breast is without significant interval change and nonspecific. [facility] Referring Provider Line: [phone] SITE ID: [id number]
[2017-09-03] MEDS ORDERED: cefTRIAXone 1 GM VIAL IVP STA (19:41)
[2017-09-03] MEDS ORDERED: metroNIDAZOLE 500 MG/100 ML 500 MG/100 ML BAG IV ONE (19:41)
[2017-09-03] MEDS ORDERED: metroNIDAZOLE 500 MG/100 ML 500 MG/100 ML BAG ONE (20:24)
[2017-09-03] MEDS ORDERED: CYCLOBENZAPRINE 10 MG TABLET PO PRN (20:34)
[2017-09-03] MEDS ORDERED: SODIUM CHLORIDE FLUSH 0.9% 10 ML SYRINGE IVP PRN (20:35)
[2017-09-03] MEDS ORDERED: oxyCODONE 5 MG TABLET PO PRN (20:35)
[2017-09-03] MEDS ORDERED: PROMETHAZINE 25 MG/1 ML VIAL IM PRN (20:35)
[2017-09-03] MEDS ORDERED: POTASSIUM CHLOR 10 MEQ/100 ML 10 MEQ/100 ML BAG IV ONE ×2 (20:35→21:45)
[2017-09-03] MEDS ORDERED: ZOLPIDEM 5 MG TABLET PO PRN (20:35)
[2017-09-03] MEDS ORDERED: ACETAMINOPHEN 325 MG TABLET PO PRN (20:35)
[2017-09-03] MEDS ORDERED: PROCHLORPERAZINE 10 MG/2 ML VIAL IVP PRN (20:35)
[2017-09-03] MEDS ORDERED: cefTRIAXone 1 GM VIAL ONE (20:39)
[2017-09-03 21:57] LABS: BASOPHILS % (AUTO) 0.3 %; EOSINOPHILS % (AUTO) 0.2 %; HCT - HEMATOCRIT 45.5 % (37.0-47.0); LYMPHOCYTES % (AUTO) 30.6 %; MEAN CORPUSCULAR HEMOGLOBIN 29.6 pg (27.0-31.0); MEAN CORPUSCULAR VOLUME 89.7 fL (81.0-99.0); MEAN PLATELET VOLUME 9.7 fL (7.9-10.8); MONOCYTES % (AUTO) 3.3 %; NEUTROPHILS % (AUTO) 65.6 %; RED BLOOD COUNT 5.08 10^6/uL (4.20-5.40); RED CELL DISTRIBUTION WIDTH 15.2 % (12.0-15.0); UNCORRECTED WHITE BLOOD COUNT 3.9 x10^3/uL; WHITE BLOOD COUNT 3.9 x10^3/uL (4.8-10.8)
[2017-09-03 22:05] LABS: ALBUMIN/GLOBULIN RATIO 1.3 (1.0-2.2); BILIRUBIN,TOTAL 0.5 mg/dL (0.2-1.0); BUN - BLOOD UREA NITROGEN 20 mg/dL (6-20); CALCIUM 8.6 mg/dL (8.5-10.3); CARBON DIOXIDE - CO2 22 mmol/L (21-32); CHLORIDE 100 mmol/L (101-111); CREATININE 0.9 mg/dL (0.4-1.0); GFR - MDRD 63 (>89); GLUCOSE 204 mg/dL (70-100); POTASSIUM 3.1 mmol/L (3.5-5.0); SODIUM 136 mmol/L (135-145); TOTAL PROTEIN 6.4 g/dL (6.7-8.2)
[2017-09-03] MEDS: SODIUM CHLORIDE FLUSH 0.9% 10 ML SYRINGE IVP SCH (22:06)
[2017-09-03 22:12] LABS: BAND NEUTROPHILS % (MANUAL) 20 %; LYMPHOCYTES % (MANUAL) 38 %; NEUTROPHILS % (MANUAL) 39 %; TOTAL CELLS COUNTED 100
[2017-09-03 22:13] LABS: NP AUTO DIFFERENTIAL? YES; NP MAN DIFFERENTIAL? NO; PLATELET ESTIMATE, MANUAL NORMAL (130-450,000) (NORMAL); PLATELET MORPHOLOGY 2+ GIANT PLATELETS (NORMAL)
[2017-09-03 22:30] LABS: BILIRUBIN,URINE NEGATIVE (NEGATIVE); PH,URINE 5.5 PH (5.0-7.5)
[2017-09-03] MEDS: NS W/20 MEQ KCL 1,000 ML IV SCH (22:30)
[2017-09-03 22:32] LABS: UA w/ MICROSCOPIC CHARGE YES
[2017-09-03 22:39] LABS: UR CULTURE IF IND NOT INDICATED; WBC,URINE 0-3 /HPF (0-5)
[2017-09-03] MEDS: oxyCODONE 5 MG TABLET PO PRN (22:53)
[2017-09-03] MEDS: metroNIDAZOLE 500 MG/100 ML 500 MG/100 ML BAG IV SCH (23:55)
[2017-09-03] MEDS: MORPHINE 2 MG/ML SYRINGE IVP PRN (23:56)
--- NOTE | 2017-09-04 02:18 | HISTORY & PHYSICAL EXAMINATION ---
Chief Complaint - Chief Complaint Chief Complaint: Abdominal pain History of Present Illness - Admitted From Admitted From:: Emergency department - History Obtained From Records Reviewed: Yes History obtained from: Patient Exam Limitations: None - History of Present Illness HPI Comment/Other: Patient is a 62-year-old female with a past medical history significant for hypertension, cyclic vomiting syndrome and osteoarthritis who presented to the emergency department with a chief complaint of abdominal pain. The patient states that she was in her normal state of health until she woke up at 8 AM this morning in excruciating pain. Patient states that she was having severe left lower quadrant pain which progressed throughout the day and got to a point where she just could not stand it anymore and she decided to come into the emergency department. The patient states that throughout the day she developed increasing nausea and vomited several times prior to coming to the emergency department. She also states that she has been very thirsty throughout the day and has been drinking lots and lots of water. The patient admits to feeling hot and then cold at home. She states that she also had cold sweats. The patient denies having had any diarrhea and had a normal bowel movement earlier in the day. Patient denies any constipation. The patient states that the pain is only alleviated once she got to the emergency department and got IV pain medication. She denies having had any radiation of the pain. The patient denies any vaginal bleeding, bloody stools, melena. Patient denies any headaches, blurred vision, runny nose, sore throat, nasal congestion, difficulty swallowing, neck pain, chest pain, orthopnea, PND, increased lower extremity swelling, palpitations, shortness of air, joint pains , muscle aches, urinary urgency, urinary frequency, dysuria, back pain, neck stiffness, recent unintentional weight loss, hair loss, rash or any focal neurologic deficits. On presentation to the emergency department the patient was afebrile but was tachycardic in the 1 teens and was very hypertensive with blood pressure of 185/ 135. The patient otherwise was not in any respiratory distress. The patient however was in significant distress from abdominal pain. Patient was found to have left lower quadrant abdominal tenderness and was sent for CT of the abdomen and pelvis the CT revealed that the patient had new diffuse intraperitoneal inflammatory changes with omental stranding and a very small amount of free fluid. These findings were concerning for diffuse peritonitis, peritoneal carcinomatosis or other diffuse intraperitoneal inflammatory process. The patient's initial lab work showed a significant hypokalemia with a potassium of 2.9 but otherwise had no leukocytosis. The patient's labs were repeated 5 hours later as she was still in significant pain and becoming increasingly tachycardic and at that time the patient's lactic acid was elevated at 4.7 and the patient had a leuko-xiomara with a 20% bandemia. Given these findings the patient was admitted for sepsis likely secondary to an intra- abdominal source. Surgery was called in the emergency department and they recommended allowing the patient to cool off as they did not feel that surgery was emergently needed. They advised to give her IV fluids, IV antibiotics and keep her n.p.o. The surgeon also asked that we repeat a CT scan of the abdomen in the morning. They did recommend that if the patient worsens at all over the course of the night that she needs to be transferred to a hospital with open OR rooms. History - Past Medical History Cardiovascular: reports: Hypertension, Arrhythmia Respiratory: reports: None Neuro: reports: None Endocrine/Autoimmune: reports: None GI: reports: Other (Cyclic vomiting syndrome) : reports: None HEENT: reports: None Psych: reports: None Musculoskeletal: reports: Osteoarthritis Derm: reports: None MRSA Hx?: No Other Past Medical History: Prolonged QT - Family & Social History Family History: Mother: Cancer (Leukemia), Diabetes, Type 2, Hypertension, Father: (Father of pulmonary fibrosis) Living arrangement: At home Living Situation: Alone Social History Notes: The patient is originally from [place], [place] but lived in [place] during her early years. She went to college for a short time, got , got , never got again, she has no children. 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 She previously lived in [place], [place]. She currently lives in [place], [place]. She lives alone. She does not smoke but did previously smoke cigarettes quit 10 years ago. She denies any illicit drug use. She states that she occasionally drinks a glass of wine. - POLST Patient has POLST: No POLST Status: DNR Meds/Allgy - Home Medications Home Medications: Ambulatory Orders Medication Instructions Recorded Confirmed Promethazine [Phenergan] 25 - 50 mg PO Q6H PRN #10 tab 11/27/16 09/03/17 Cyclobenzaprine [Flexeril] 10 mg PO TID PRN 06/19/17 09/03/17 Losartan [Cozaar] 50 mg PO DAILY 06/19/17 09/03/17 Promethazine Supp [Phenergan Supp] 25 mg AK QID PRN #30 supp 06/20/17 09/03/17 - Allergies Allergies/Adverse Reactions: Allergies Allergy/AdvReac Type Severity Reaction Status Date / Time Penicillins Allergy Unknown Verified 11/27/16 08:24 losartan potassium * AdvReac Unknown Verified 06/19/17 09:22 [From Cozaar] Review of Systems - Other Findings Other Findings: A comprehensive review of systems was performed the pertinent positives and negatives are stated above in the HPI and the remainder of the review of systems is negative. Exam - Vital Signs Reviewed Vital Signs: Yes Vital Signs: Vital Signs x48h Temp Pulse Resp BP Pulse Ox 09/03/17 23:33 36.2 C L 125 H 20 140/100 H 97 09/03/17 22:14 36.2 C L 126 H 24 160/108 H 97 - Physical Exam General Appearance: positive: Moderate distress (abdominal pain, cant get comfortable in the stretcher.) Eyes Bilateral: positive: Normal inspection, PERRL, EOMI, No lid inflammation, Conjunctivae nml, No scleral icterus ENT: positive: ENT inspection nml, Pharynx nml, Dry mucous membranes. negative : Purulent nasal drainage, Pharyngeal erythema, Oral lesions Neck: positive: Nml inspection, Thyroid nml, No JVD, Trachea midline. negative : Thyromegaly, Lymphadenopathy (R), Lymphadenopathy (L), Carotid bruit, Tracheal deviation Respiratory: positive: Chest non-tender, No respiratory distress, Breath sounds nml. negative: Wheezes, Rales, Rhonchi Cardiovascular: positive: No murmur, No gallop, Tachycardia Peripheral Pulses: positive: 2+ Abdomen: positive: No distention, Tenderness (Worst in the left lower quadrant but throughout the lower abdomen quite diffuse), Guarding, Rebound Back: positive: Nml inspection. negative: CVA tenderness (R), CVA tenderness (L ) Skin: positive: Color nml, No rash, Warm, Dry. negative: Cyanosis, Pallor Extremities: positive: Non-tender, Full ROM, Nml appearance, No pedal edema Neurologic/Psychiatric: positive: Oriented x3, CN's nml (2-12), Motor nml, Sensation nml, Mood/affect nml Conclusion/Plan - Problem List (1) Sepsis Conclusion/Plan: On presentation to the emergency department the patient was tachycardic and eventually became tachypneic with 20% bandemia on CBC. She also had elevated lactic acid of 4.7 and source appears to likely be intra-abdominal. Patient's CT abdomen pelvis showed peritoneal inflammatory changes consistent with diffuse peritonitis. Surgery was contacted and felt that patient was not in emergent surgical candidate therefore could be kept at [facility] and treated medically with IV fluids, IV antibiotics, n.p.o. status with a repeat CT scan in the morning. Plan: We will treat with IV antibiotics to cover intra-abdominal organisms therefore ceftriaxone and Flagyl We will continue to give IV fluids Blood cultures 2 Monitor lactic acid Telemetry monitoring Closely monitor patient if there is any decline in the patient's status she will need immediate transfer as we do not have any surgical OR rooms available at this time. (2) Peritonitis (acute) generalized Conclusion/Plan: The patient presented with left lower quadrant abdominal pain and was found to be septic on presentation. The most likely cause of the patient's sepsis is an intra-abdominal infection. The patient's CT abdomen pelvis did show diffuse peritonitis. Plan: Patient will be treated with IV antibiotics ceftriaxone and Flagyl, IV fluids, IV antiemetics, IV pain medication If patient has any decline in her status she will need immediate transfer as our OR beds are not available. Continue to monitor patient's labs and clinical status (3) Hyperglycemia Conclusion/Plan: Patient was found to be hyperglycemic on presentation with a glucose of 186 and repeat glucose was 204. The patient states that she does not have a history of diabetes. The patient however does admit to having increased thirst over the last day. The patient does not appear to be in DKA. Plan: Check hemoglobin A 1c If A1c elevated we will consider placing the patient on sliding scale insulin or checking blood glucose 4 times a day (4) Hypokalemia Conclusion/Plan: Patient presented with a potassium of 2.9 after several episodes of emesis at home and in the emergency department. Plan: Replace potassium Monitor potassium (5) Hypertension Conclusion/Plan: The patient has history of hypertension and is on losartan at home however on presentation to the emergency department the patient's blood pressure is significantly elevated and has remained elevated while she has been hospitalized. Given that the patient presented with sepsis we are not overly concerned with the patient having hypertension. We will monitor for patient to have any drop in her blood pressure and we will continue her losartan while she is hospitalized for Qualifiers: Hypertension type: essential hypertension Qualified Code(s): I10 - Essential (primary) hypertension (6) Prophylactic use of low molecular weight heparin for venous thromboembolism Conclusion/Plan: Patient will be placed on Lovenox for DVT prophylaxis. - Lab Results Lab results reviewed: Yes Fish Bones: 09/03/17 21:48 09/03/17 21:48 Other Lab Results: Laboratory Results WBC 3.9 x10^3/uL (4.8-10.8) L 09/03/17 21:48 RBC 5.08 10^6/uL (4.20-5.40) 09/03/17 21:48 Hgb 15.0 g/dL (12.0-16.0) 09/03/17 21:48 Hct 45.5 % (37.0-47.0) 09/03/17 21:48 MCV 89.7 fL (81.0-99.0) 09/03/17 21:48 MCH 29.6 pg (27.0-31.0) 09/03/17 21:48 MCHC 33.0 g/dL (32.0-36.0) 09/03/17 21:48 RDW 15.2 % (12.0-15.0) H 09/03/17 21:48 Plt Count 245 10^3/uL (130-450) 09/03/17 21:48 MPV 9.7 fL (7.9-10.8) 09/03/17 21:48 Neut # Not Reportable 09/03/17 21:48 Lymph # Not Reportable 09/03/17 21:48 [place] # Not Reportable 09/03/17 21:48 Eos # Not Reportable 09/03/17 21:48 Baso # Not Reportable 09/03/17 21:48 Absolute Nucleated RBC Not Reportable 09/03/17 21:48 Total Counted 100 09/03/17 21:48 Band Neuts % (Manual) 20 % (0-10) H 09/03/17 21:48 Abnorm Lymph % (Manual) 0 % 09/03/17 21:48 Nucleated RBC % Not Reportable 09/03/17 21:48 Neutrophils # (Manual) 2.3 10^3/uL (1.5-6.6) 09/03/17 21:48 Lymphocytes # (Manual) 1.5 10^3/uL (1.5-3.5) 09/03/17 21:48 Monocytes # (Manual) 0.1 10^3/uL (0.0-1.0) 09/03/17 21:48 Eosinophils # (Manual) 0.0 10^3/uL (0-0.7) 09/03/17 21:48 Basophils # (Manual) 0.0 10^3/uL (0-0.1) 09/03/17 21:48 Differential Comment MANUAL DIFFERENTIAL 09/03/17 21:48 Manual Slide Review Indicated 09/03/17 21:48 Platelet Estimate NORMAL (130-450,000) (NORMAL) 09/03/17 21:48 Platelet Morphology 2+ GIANT PLATELETS (NORMAL) 09/03/17 21:48 RBC Morph Micro Appear NORMAL APPEARANCE (NORMAL) 09/03/17 21:48 Sodium 136 mmol/L (135-145) 09/03/17 21:48 Potassium 3.1 mmol/L (3.5-5.0) L 09/03/17 21:48 Chloride 100 mmol/L (101-111) L 09/03/17 21:48 Carbon Dioxide 22 mmol/L (21-32) 09/03/17 21:48 Anion Gap 14.0 (6-13) H 09/03/17 21:48 BUN 20 mg/dL (6-20) 09/03/17 21:48 Creatinine 0.9 mg/dL (0.4-1.0) 09/03/17 21:48 Estimated GFR (MDRD) 63 (>89) L 09/03/17 21:48 Glucose 204 mg/dL (70-100) H 09/03/17 21:48 Lactic Acid 4.7 mmol/L (0.5-2.2) H* 09/03/17 20:45 Calcium 8.6 mg/dL (8.5-10.3) 09/03/17 21:48 Ionized Calcium NO 09/03/17 21:48 Total Bilirubin 0.5 mg/dL (0.2-1.0) 09/03/17 21:48 AST 28 IU/L (10-42) 09/03/17 21:48 ALT 15 IU/L (10-60) 09/03/17 21:48 Alkaline Phosphatase 56 IU/L (42-121) 09/03/17 21:48 Total Protein 6.4 g/dL (6.7-8.2) L 09/03/17 21:48 Albumin 3.6 g/dL (3.2-5.5) 09/03/17 21:48 Globulin 2.8 g/dL (2.1-4.2) 09/03/17 21:48 Albumin/Globulin Ratio 1.3 (1.0-2.2) 09/03/17 21:48 Lipase 13 U/L (22-51) L 09/03/17 16:07 Urine Color YELLOW 09/03/17 22:19 Urine Clarity CLEAR (CLEAR) 09/03/17 22:19 Urine pH 5.5 PH (5.0-7.5) 09/03/17 22:19 Ur Specific [place] >=1.030 (1.002-1.030) H 09/03/17 22:19 Urine Protein 30 mg/dL (NEGATIVE) H 09/03/17 22:19 Urine Glucose (UA) 250 mg/dL (NEGATIVE) H 09/03/17 22:19 Urine Ketones NEGATIVE mg/dL (NEGATIVE) 09/03/17 22:19 Urine Occult Blood NEGATIVE (NEGATIVE) 09/03/17 22:19 Urine Nitrite NEGATIVE (NEGATIVE) 09/03/17 22:19 Urine Bilirubin NEGATIVE (NEGATIVE) 09/03/17 22:19 Urine Urobilinogen 0.2 (NORMAL) E.U./dL (NORMAL) 09/03/17 22:19 Ur Leukocyte Esterase NEGATIVE (NEGATIVE) 09/03/17 22:19 Urine RBC None Seen /HPF (0-5) 09/03/17 22:19 Urine WBC 0-3 /HPF (0-5) 09/03/17 22:19 Ur Squamous Epith Cells FEW Squamous (<= Few) 09/03/17 22:19 Urine Bacteria None Seen /HPF (None Seen) 09/03/17 22:19 Urine Casts >50 Hyaline Casts /LPF0-2 Fine Granular /LPF 09/03/17 22:19 Urine Casts >50 Hyaline Casts /LPF0-2 Fine Granular /LPF 09/03/17 22:19 Ur Microscopic Review INDICATED 09/03/17 22:19 Urine Culture Comments NOT INDICATED 09/03/17 22:19 - Diagnostic Imaging Results Diagnostic Imaging Results: positive: Final report reviewed Diagnostic Imaging Results Comments: CT abdomen/pelvis Impression: 1. New diffuse intraperitoneal inflammatory changes with omental stranding and a very small amount of free fluid. These findings may reflect diffuse peritonitis, peritoneal carcinomatosis, or other diffuse intraperitoneal inflammatory process. 2. Round were prolapse of the distal rectum in the low pelvis. 3. No mechanical bowel obstruction. Muscle is distended with fluid. 4. Nonspecific ovoid density in the inferior right breast is without significant interval change and nonspecific Issues/Core Measures - Anticipated LOS Anticipated Stay Length: 2 or more midnights - DVT/VTE - Prophylaxis VTE/DVT Prophylaxis med ordered at admit?: Yes
[2017-09-04] MEDS: MORPHINE 2 MG/ML SYRINGE IVP PRN ×6 (02:45→23:53)
[2017-09-04] MEDS: oxyCODONE 5 MG TABLET PO PRN (04:10)
[2017-09-04] MEDS: NS W/20 MEQ KCL 1,000 ML IV SCH ×6 (05:19→23:01)
[2017-09-04] MEDS: metroNIDAZOLE 500 MG/100 ML 500 MG/100 ML BAG IV SCH ×3 (05:34→18:11)
[2017-09-04] MEDS: SODIUM CHLORIDE FLUSH 0.9% 10 ML SYRINGE IVP SCH ×3 (05:53→21:38)
[2017-09-04 06:02] LABS: BASOPHILS % (AUTO) 0.1 %; EOSINOPHILS % (AUTO) 0.2 %; HCT - HEMATOCRIT 45.5 % (37.0-47.0); HGB - HEMOGLOBIN 14.5 g/dL (12.0-16.0); LYMPHOCYTES # (AUTO) 1.4 10^3/uL (1.5-3.5); LYMPHOCYTES % (AUTO) 29.4 %; MEAN CORPUSCULAR HEMOGLOBIN 28.7 pg (27.0-31.0); MEAN CORPUSCULAR HGB CONC 31.9 g/dL (32.0-36.0); MEAN CORPUSCULAR VOLUME 90.2 fL (81.0-99.0); MEAN PLATELET VOLUME 10.1 fL (7.9-10.8); MONOCYTES # (AUTO) 0.1 10^3/uL (0.0-1.0); MONOCYTES % (AUTO) 2.9 %; NEUTROPHILS # (AUTO) 3.3 10^3/uL (1.5-6.6); NEUTROPHILS % (AUTO) 67.4 %; NUCLEATED RED BLOOD CELLS AUTO 0.1 /100WBC; RED BLOOD COUNT 5.05 10^6/uL (4.20-5.40); RED CELL DISTRIBUTION WIDTH 14.9 % (12.0-15.0); UNCORRECTED WHITE BLOOD COUNT 4.9 x10^3/uL; WHITE BLOOD COUNT 4.9 x10^3/uL (4.8-10.8)
[2017-09-04 06:03] LABS: INR 1.4 (0.8-1.2); PT - PROTHROMBIN TIME 15.4 secs (9.9-12.6)
[2017-09-04 06:14] LABS: ALBUMIN/GLOBULIN RATIO 1.2 (1.0-2.2); BILIRUBIN,TOTAL 0.6 mg/dL (0.2-1.0); CALCIUM 8.4 mg/dL (8.5-10.3); MAGNESIUM 1.2 mg/dL (1.7-2.8); PHOSPHORUS 2.5 mg/dL (2.5-4.6); POTASSIUM 3.8 mmol/L (3.5-5.0); TOTAL PROTEIN 5.8 g/dL (6.7-8.2)
[2017-09-04] MEDS ORDERED: IOPAMIDOL-300 50 ML VIAL ONE (07:16)
[2017-09-04] MEDS ORDERED: IOPAMIDOL-300 100 ML VIAL ONE (07:16)
[2017-09-04] MEDS ORDERED: IOPAMIDOL-300 50 ML VIAL PO ONE (07:21)
[2017-09-04] MEDS ORDERED: IOPAMIDOL-300 100 ML VIAL IVP ONE (07:21)
[2017-09-04 07:39] LABS: HEMOGLOBIN A1C 0.63 g/dL
[2017-09-04] MEDS ORDERED: ENOXAPARIN 40 MG/0.4 ML SYRINGE SUBQ SCH (09:00)
[2017-09-04] MEDS ORDERED: LOSARTAN 50 MG TABLET PO SCH (09:00)
[2017-09-04] MEDS ORDERED: POLYETHYLENE GLYCOL 3350 17 GM PACKET PO SCH (09:00)
[2017-09-04] MEDS ORDERED: cefTRIAXone 1 GM in SODIUM CHLORIDE 0.9% MINIBAG 100 ML IV SCH (09:00)
[2017-09-04] MEDS ORDERED: FAMOTIDINE 20 MG TABLET PO SCH (09:00)
--- NOTE | 2017-09-04 09:40 | CT Preliminary Report ---
Exam: CT ABDOMEN/PELVIS W/ IMPRESSION: 1. Generalized inflammation and ill-defined fluid throughout the abdomen and pelvis with extraluminal gas and possible stool adjacent to the distal sigmoid colon which is thick-walled with scattered foc i of free intraperitoneal air elsewhere. Findings concerning for bowel perforation, possibly sigmoid colonic perforation. Surgical evaluation. 2. Hypoattenuating regions in the spleen may be related to bolus timing or infarctions 3. Hypoattenuating wedge-shaped area of hypoattenuation in the caudate could represent infarction 4. Hyperattenuating adrenal glands can be seen with shock 5. Colonic wall thickening and areas of small bowel wall thickening likely related to or generalized intra-abdominal process/peritonitis throughout the abdomen and pelvis 6. Distal esophageal wall thickening suggestive of esophagitis with findings of reflux and hiatal her dre 7. Areas of mild small bowel wall thickening likely representing ileus RADIA The above findings were discussed with MD by Dr. Elijah Castellon at 09:39 hrs on 09/04/17. SITE ID: [id number]
--- NOTE | 2017-09-04 09:43 | CT Report ---
EXAM: CT ABDOMEN AND PELVIS EXAM DATE: 09/04/2017 08:25 AM. CLINICAL HISTORY: LLQ abd pain, bandemia, lactic acidosis, tachy. COMPARISONS: CT abdomen and pelvis 09/03/2017. TECHNIQUE: Routine helical CT imaging was performed through the abdomen and pelvis. IV contrast: 100M L OF ISOVUE 300. Enteric contrast: Yes. Reconstructions: Coronal and sagittal. In accordance with CT protocol optimization, one or more of the following dose reduction techniques w ere utilized for this exam: automated exposure control, adjustment of mA and/or KV based on patient s ize, or use of iterative reconstructive technique. FINDINGS: Lung Bases: Trace right pleural fluid. Subsegmental atelectasis at the bases. Dilatation of the ascen ding thoracic aorta measuring 4 cm. Liver: Bandlike area of hypoattenuation in the caudate, series 3, axial image 24 with some surroundin g induration in the perihepatic fat. Small amount of periportal edema. Gallbladder/Bile Ducts: Unremarkable. Spleen: Multiple wedge-shaped areas of hypoattenuation in the spleen. Pancreas: Retroperitoneal induration/edema seen posterior to the pancreatic body and tail tracks infe riorly along the lateral conal fascia Adrenal Glands: Hyperattenuating adrenal glands. Kidneys: Low attenuating renal lesions are too small to characterize. No enhancing mass. No hydroneph rosis. Peritoneal Cavity/Bowel: Oral contrast distended distal esophagus consistent with reflux. Distal esop hageal wall thickening. Small hiatal hernia. Anal prolapse with pelvic floor weakness with descend of the posterior column. Colonic diverticulosis. Colonic wall thickening. Appendix not seen. Mildly dis tended small bowel loops with areas of small bowel wall thickening. Pelvic Organs: Normal. The bladder and visualized pelvic organs are within normal limits. Vasculature: No aneurysms or other significant abnormality. Bones: No significant abnormality. Other: Extraluminal gas and possible stool in the inferior pelvis adjacent to the sigmoid colon and p elvic small bowel loops, series 3, axial image 78 and series 5, coronal image 46. Ill-defined fluid i n the inferior pelvis extends into the bilateral paracolic gutters. Extraluminal gas tracks along the sigmoid and small bowel loops into the superior pelvis, series 3, axial image 69. Extraluminal foci of gas also seen in the small bowel mesentery, series 3, axial image 58 and in the left upper quadran t, series 3, axial image 40 and elsewhere. Generalized inflammation in the abdominal and pelvic cavit y with induration and stranding. Small fat-containing lumbar hernias. Stable ovoid mass in the right breast. IMPRESSION: 1. Generalized inflammation and ill-defined fluid throughout the abdomen and pelvis with extraluminal gas and possible stool adjacent to the distal sigmoid colon which is thick-walled with scattered foc i of free intraperitoneal air elsewhere. Findings concerning for bowel perforation, possibly sigmoid colonic perforation. Surgical evaluation. 2. Hypoattenuating regions in the spleen may be related to bolus timing or infarctions 3. Hypoattenuating wedge-shaped area of hypoattenuation in the caudate could represent infarction 4. Hyperattenuating adrenal glands can be seen with shock 5. Colonic wall thickening and areas of small bowel wall thickening likely related to or generalized intra-abdominal process/peritonitis throughout the abdomen and pelvis 6. Distal esophageal wall thickening suggestive of esophagitis with findings of reflux and hiatal her dre 7. Areas of mild small bowel wall thickening likely representing ileus RADIA The above findings were discussed with by Dr. Elijah Castellon at 09:39 hrs on 09/04/17. Referring Provider Line: [phone] SITE ID: [id number]
[2017-09-04] MEDS ORDERED: ACETAMINOPHEN 1,000 MG/100 ML 100 ML IV PRN (10:41)
[2017-09-04] MEDS: MAGNESIUM SULFATE 2 GRAM 2 GM/50 ML BAG IV SCH ×2 (11:13→16:33)
--- NOTE | 2017-09-04 11:38 | Discharge Plan ---
Discharge Plan Disposition: 02 Transfer Acute Care Hosp Condition: Critical No Smoking: If you smoke, Please STOP! Call for help. Follow-up with: Sasha Wilcox ARNP [Primary Care Provider] -
[2017-09-04] MEDS ORDERED: LACTATED RINGERS 1,000 ML IV SCH (12:00)
--- NOTE | 2017-09-04 12:07 | DISCHARGE SUMMARY ---
THIS IS A PROGRESS NOTE (not a Discharge summary, as the patient was not transferred). DATE 09/04/2017 HISTORY OF PRESENT ILLNESS: This is a 62-year-old white female with a history of hypertension on losartan and a history of cyclical vomiting syndrome with past admissions here for nausea, vomiting, dehydration and electrolyte abnormalities, which were all improved with IV hydration and antiemetics. The patient presented yesterday with nausea and vomiting and acute onset of abdominal pain, more severe in the left lower quadrant that progressed as the day went on, and she came to the emergency room. She was admitted with peritonitis with CAT scan findings showing this. She was also felt to be septic with a lactic acid level of 4.7, tachycardia with a heart rate of 110-120 and 20 % bands on her differential of the CBC. She was started on IV fluids and IV antibiotics and kept n.p.o. except for medications. HOSPITAL COURSE AND DIAGNOSES: 1) Perforated bowel. The day after admission, she underwent a CT scan of the abdomen for followup and this continued to show inflammation and peritoneal fluid and stranding of the bowel, but also a new wedge-shaped defect in the spleen consistent with an infarct, a new wedge-shaped defect in the liver consistent with an infarct, new hyperdense adrenal glands consistent with shock and new gas in the abdomen with the likely area being the sigmoid colon according to the radiologist. The patient continues to have a lactic acid level of 4.7 and remained tachycardic. Her blood pressure worsened and she was felt to be in critical condition and needing transfer for a higher level of care. She was accepted by the body sander at the ICU of the [facility] in [place], [place] with plan for surgical management (I have reached out to the surgeon on-call several times, but have received no callback at the time of this dictation). Just before transport by air, the hospital cultures back that there were no ICU beds. All other hospitals for potential transfer were also contacted and each 1 had no beds. The emergency operating room was then opened by administration and the plan is for the on-call surgeon, Dr. Hernández to perform abdominal surgery for this critical condition. 2) Septic shock. The patient's blood pressure was stable at admission throughout the night until approximately 11 a.m. when she started to drop her blood pressure from 106/75 to 90/68 and then 88/61. The patient's extremities were cool and mottled and she appeared ashen consistent with shock. The patient had a central line placed and hydration was increased to 250 mL an hour along with potassium and magnesium replacement. The patient was accepted for the intensive care unit of [facility] in [place], [place] for further management of presumed septic shock. This was plan was later reversed and the patient remained in our ICU. MEDICATIONS 1. IV normal saline with 20 mEq of KCl at 250 mL an hour. 2. Magnesium rider. 3. Ofirmev 1000 mg q.6 hours IV p.r.n. pain. 4. Ceftriaxone 1 gram IV daily. 5. Flagyl 500 mg IV q.6 hours. 6. Morphine sulfate 2 mg IV q.2 hours p.r.n. pain. 7. Zofran 4 mg IV q.6 hours p.r.n. nausea. 8. Compazine 10 mg IV q.6 hours p.r.n. nausea. 9. Phenergan 25 mg IM q.6 hours p.r.n. nausea. 10. Pressor support with iv Levophed, titration protocol to keep MAP >65-70. ALLERGIES: PENICILLINS (THE LIST ALSO STATES LOSARTAN; HOWEVER, the PATIENT DOES TAKE LOSARTAN ON A DAILY BASIS). CODE STATUS: DO NOT RESUSCITATE. PHYSICAL EXAMINATION VITAL SIGNS: Blood pressure 88/61, pulse 126 and sinus tachycardia. SKIN: The skin is cool and mottled. She appears ashen. GENERAL: She is answering appropriately, but with slow speech. HEENT: Oral mucosa is dry. NECK: No JVD. CHEST: Clear. ABDOMEN: Hard with decreased bowel sounds. EXTREMITIES: Showed edema. NEUROLOGIC: Neurologically intact except for her obtundation. JOB #: [id number] EXT JOB #:[id number] CARRIE
[2017-09-04] MEDS ORDERED: LACTATED RINGERS 1,000 ML IV ONE (12:47)
[2017-09-04] MEDS ORDERED: MIDAZOLAM 2 MG/2 ML VIAL IVP ONE (13:00)
[2017-09-04] MEDS ORDERED: fentaNYL 100 MCG/2 ML VIAL IVP ONE (13:00)
[2017-09-04] MEDS ORDERED: PROPOFOL 200 MG/20 ML VIAL IVP ONE (13:00)
[2017-09-04] MEDS ORDERED: ROCURONIUM 50 MG/5 ML VIAL IVP ONE (13:00)
--- NOTE | 2017-09-04 13:10 | XRAY Report ---
PORTABLE CHEST: 09/04/2017 HISTORY: For line placement. COMPARISON: 12/02/2016 FINDINGS: Right internal jugular venous catheter, tip at the cavoatrial junction. No pneumothorax. Grossly clear lungs. Normal heart size. No pleural fluid. IMPRESSION: NO UNEXPECTED FINDINGS STATUS POST RIGHT INTERNAL JUGULAR VENOUS CATHETER PLACEMENT. JOB #: [id number] EXT JOB #:[id number]
[2017-09-04] MEDS ORDERED: SODIUM CHLORIDE 0.9% 1,000 ML IV ONE (13:24)
[2017-09-04] MEDS ORDERED: SODIUM CHLORIDE 0.9% 500 ML IV ONE (13:55)
[2017-09-04] MEDS ORDERED: EPINEPHrine 4 MG in DEXTROSE 5% 246 ML IVP SCH (15:00)
[2017-09-04] MEDS: VECURONIUM 100 MG in SODIUM CHLORIDE 0.9% 100ML 100 ML IV SCH (15:00)
[2017-09-04] MEDS: PHENYLEPHRINE 20 MG in SODIUM CHLORIDE 0.9% 248 ML IV SCH ×3 (15:00→21:55)
[2017-09-04] MEDS ORDERED: VECURONIUM 10 MG VIAL ONE (15:17)
--- NOTE | 2017-09-04 15:19 | OPERATIVE REPORT ---
Operative Report - General Admit Date: 09/03/17 Procedure Date: 09/04/17 Planned Procedure: Emergent exploratory laparotomy with likely bowel resection Pre-Op Diagnosis: Abdominal catastrophe with free air and fluid in a septic patient Procedure Performed: Emergent exploratory laparotomy, with sigmoidectomy, drainage of fecalent peritonitis, resection of necrotic terminal ileum and cecum (with attached appendix), placement of drain with non-closure of abdomen with plan for re- operation in 24 hours (note bowel is not in continuity) Post Op Diagnosis: Perforated distal sigmoid colon resulting in fecalent peritonitis and necro - Procedure Note Primary Surgeon: Wilbert Hernández MD Anesthesia Provider: Mary Polk CRNA Anesthesia Technique: General ET tube IV Fluids (mL): 1,800 Estimated Blood Loss (mL): 100 Urine Output (mL): 150 Drain/Tube Type: Estevan drain (19 Fr in right lower quadrant traversing the pelvis to lay in left gutter) Complications: None. - Other Other Information/Narrative: OPERATIVE DESCRIPTION/REPORT: I was called urgently to see this patient as it was clear that she had a surgical abdomen and all efforts to transfer her had failed. Our operating rooms were closed due to construction issues but I was told that I could use Room 1 for her surgery as she was in extremis and transfer was not possible. Due to the emergent nature of her disease process I verbally detailed the risks of infection, bleeding requiring transfusion with its risks, the likelihood of bowel resection and either ileostomy or colostomy, and , quite literally at the door of the operating room. The patient was brought in to the operative suite and placed supine on the operating table. Great care was taken to avoid pressure points to prevent pressure necrosis or nerve injury. Monitoring devices were applied along with pneumatic compressive stockings (to prevent DVT) . The patient received additional preoperative antibiotics (Primaxin) for surgical prophylaxis. Mary Polk sedated and anesthetized the patient for the entire procedure. The patient was prepped and draped in the usual sterile manner. A truncated "time in" then confirmed that the patient was identified with 3 identifiers (name, date and medical record number), the patient was in the correct position, the aforementioned prophylactic measures were in place or given, we had the correct personnel and equipment to complete the procedure and that anesthesia, surgery and nursing were given an opportunity to express any concerns. Please note that due to the emergent nature of this case a consultation was not performed by me nor was a written consent obtained. With the agreement of everyone in the room, we proceeded with the operation. A midline incision was made just starting above the umbilicus and taken infraumbilically and taken down to the fascia. The incision extended from the umbilicus to above the pubic tubercle. Once this was taken down to the fascia, the fascia and peritoneum were opened without incident or difficulty. Upon entering the abdomen, a large amount of feculent and liquid material was noted. This was removed via suction. A quick examination of the abdomen revealed feculent staining to the distal small bowel, a small area of necrotic bowel in the distal ileum, hard stool within the colon, and a densely adhesed sigmoid colon in the patient's pelvis with an area of perforation in the distal sigmoid colon. It should be noted that upon entering the operating room the patient's blood pressure was 80/60 (approximately) and that the patient was receiving levo fed and Dewayne-Synephrine throughout the case. The distal descending colon and proximal sigmoid colon were then dissected free from the left pelvic sidewall using Bovie electrocautery along the white line of Toldt. I chose an area of transection in the distal descending colon and after making a small hole in the mesentery with Bovie electrocautery placed a ALEISHA-75 stapler and fired it thus transecting the colon. Distally the mesentery was taken sequentially using a LigaSure or down into the pelvis and beyond the area of perforation. Lateral attachments were similarly taken using the LigaSure. Great care was taken to stay on or near the colon to help prevent a ureteral injury. Please note due to the large amount of feculent material and peritonitis normal anatomic planes were not obvious and visualization was difficult. In this manner I was able to resect the colon down to just above the peritoneal reflection. At this point a contour stapler was placed across the distal sigmoid colon/proximal rectum and fired and the specimen was removed from the abdominal cavity. The rectal stump was marked with 2 2-0 Prolene sutures at each corner. The sutures were left long to make identification easier in the future. The abdomen was then copiously irrigated using warm sterile saline try and remove some of the feculent material. A dry lap was packed into the pelvis. The small bowel was run from ligament of Treitz to the right colon. The proximal small bowel looked okay without staining in mild dilation. Please note the nasogastric tube was in good position in the stomach. The liver and spleen were palpably normal although there was some question about patchy necrosis on the preoperative CT scan. I determined that if the patient had necrosis of her liver there was nothing that I could do surgically about this. The best chance I had to improve this was to get her off the operating room table as quickly as possible with areas of necrosis or infection fully resected. Distally in the small bowel there was a 10 cm long portion of the ileum with necrosis of the antimesenteric wall. Proximal to this there was some staining of the small bowel with fecal incontinence but the staining did not constitute necrosis. Proximal to this area of necrosis I placed a ALEISHA-75 stapler and fired it thus transecting the small bowel. In order to resect the entire small bowel it was evident that I would need to take the small bowel all the way up to the terminal ileum and its junction into the right colon. I opted to take the cecum as well as the appendix as part of the resection margin to allow for a easier anastomosis in the future. The appendix was adherent in the pelvis with this feculent peritonitis but was dissected out and resected as part of the specimen. A ALEISHA-75 stapler was placed across the cecum and fired thus transecting the colon. Small adhesions and attachments to the lateral pelvic wall were taken with Bovie electrocautery and the specimen was taken off the operative field. I used the 2-0 Prolene to gently approximate the small bowel and the ascending colon with a long tail to make identification easier in 24 hours and to essentially line up an anastomotic site. A 19 Gabonese Estevan drain was placed through a separate stab incision in the right lower quadrant and secured to the skin using a 3-0 nylon suture that was rubbing sampled about the drain. The drain itself went across the pelvis and up along the left gutter. The liver and spleen were palpably normal. The abdomen was copiously irrigated with warm saline. At this point I debated the surgical options that were available. It was clear that the bowel was not in continuity. Rather than try and anastomosis small bowel to the ascending colon in this clearly septic patient (still on Levophed and Dewayne-Synephrine), I opted to try and quickly close the abdomen temporarily with the plan of a reoperation in 24 hours, assuming the patient does well, to relook, possibly anastomose the small bowel to the large bowel as well as give her a colostomy and then close the fascia. I elected to do this by placing a fish retractor over the omentum to make sure that the green operative towel did not adhere itself to the omentum, and then placed a Vi-Drape over this. This allowed me to get out of the operating room as quickly as possible. It was clear and evident that the operative counts were not correct as a fish and green towels were left in the patient (on purpose). The patient was then taken to our intensive care unit in critical condition with a better blood pressure and mean arterial pressure but still on Levophed and Dewayne-Synephrine. Again the plan is to keep the patient intubated, paralyzed, and sedated until she is reoperated on in approximately 24 hours.
[2017-09-04] MEDS ORDERED: MIDAZOLAM 2 MG/2 ML VIAL ONE (15:22)
[2017-09-04] MEDS ORDERED: MINERAL OIL/PETROLAT OPHTH OINT EACHEYE PRN (15:53)
[2017-09-04] MEDS ORDERED: PROPOFOL 1000 MG/100 ML 100 ML IV SCH ×2 (16:00)
[2017-09-04] MEDS: MINERAL OIL/PETROLAT OPHTH OINT EACHEYE SCH ×2 (16:00→21:32)
[2017-09-04] MEDS ORDERED: PANTOPRAZOLE 40 MG VIAL IVP SCH (16:00)
[2017-09-04] MEDS ORDERED: MIDAZOLAM DRIP 50 MG/100 ML BAG IV SCH (16:00)
[2017-09-04] MEDS ORDERED: MINERAL OIL/PETROLAT OPHTH OINT ONE (16:01)
[2017-09-04 16:45] LABS: BASOPHILS % (AUTO) 0.1 %; EOSINOPHILS % (AUTO) 0.4 %; HCT - HEMATOCRIT 38.9 % (37.0-47.0); HGB - HEMOGLOBIN 12.9 g/dL (12.0-16.0); LYMPHOCYTES % (AUTO) 38.4 %; MEAN CORPUSCULAR HEMOGLOBIN 29.5 pg (27.0-31.0); MEAN CORPUSCULAR HGB CONC 33.3 g/dL (32.0-36.0); MEAN CORPUSCULAR VOLUME 88.6 fL (81.0-99.0); MEAN PLATELET VOLUME 9.9 fL (7.9-10.8); MONOCYTES % (AUTO) 2.7 %; NEUTROPHILS % (AUTO) 58.4 %; RED BLOOD COUNT 4.39 10^6/uL (4.20-5.40); RED CELL DISTRIBUTION WIDTH 15.2 % (12.0-15.0); UNCORRECTED WHITE BLOOD COUNT 7.6 x10^3/uL; WHITE BLOOD COUNT 7.6 x10^3/uL (4.8-10.8)
[2017-09-04 16:51] LABS: ALBUMIN/GLOBULIN RATIO 1.2 (1.0-2.2); BILIRUBIN,TOTAL 0.5 mg/dL (0.2-1.0); CALCIUM 6.7 mg/dL (8.5-10.3); POTASSIUM 4.6 mmol/L (3.5-5.0); TOTAL PROTEIN 4.2 g/dL (6.7-8.2)
[2017-09-04] MEDS: SODIUM CHLORIDE 0.9% 1,000 ML IV SCH ×3 (16:59→20:41)
[2017-09-04 17:01] LABS: BAND NEUTROPHILS % (MANUAL) 38 %; EOSINOPHILS % (MANUAL) 1 %; LYMPHOCYTES % (MANUAL) 39 %; NEUTROPHILS % (MANUAL) 19 %; TOTAL CELLS COUNTED 100
[2017-09-04 17:02] LABS: NP AUTO DIFFERENTIAL? YES; NP MAN DIFFERENTIAL? NO; PLATELET ESTIMATE, MANUAL NORMAL (130-450,000) (NORMAL); PLATELET MORPHOLOGY RARE GIANT PLATELETS (NORMAL)
--- NOTE | 2017-09-04 17:11 | XRAY Preliminary Report ---
Exam: XR CHEST FOR LINE PLACEMENT IMPRESSION: 1. Recommend 2.5 cm advancement of the endotracheal tube. 2. New mild vascular congestion. 3. NG tube tip in the gastric fundus. 4. Note that the information as regards date and time of acquisition on the images for this exam and prior exams are incorrect. [facility] SITE ID: [id number]
--- NOTE | 2017-09-04 17:19 | XRAY Report ---
EXAM: CHEST RADIOGRAPHY EXAM DATE: 09/04/2017 04:35 PM. Information on the films state 09/05/2017, 0123. CLINICAL HISTORY: Confirm endotracheal tube, NGT placement. COMPARISON: 09/04/20172123. TECHNIQUE: 1 view. FINDINGS: Lungs/Pleura: New mild vascular congestion. Normal lung volumes. No effusion or pneumothorax. Mediastinum: Interval placement of endotracheal tube with the tip 6.5 cm above the birdie. Interval p lacement of an NG tube with the tip in the gastric fundus. Right jugular line tip remains inferior third SVC. No tracheal shift. Other: None. IMPRESSION: 1. Recommend 2.5 cm advancement of the endotracheal tube. 2. New mild vascular congestion. 3. NG tube tip in the gastric fundus. 4. Note that the information as regards date and time of acquisition on the images for this exam and prior exams are incorrect. [facility] Referring Provider Line: [phone] SITE ID: [id number]
[2017-09-04] MEDS: MIDAZOLAM DRIP 50 MG/100 ML BAG IV SCH (18:24)
[2017-09-04] MEDS: CEFEPIME 1 GM in SODIUM CHLORIDE 0.9% MINIBAG 100 ML IV SCH ×2 (18:32→21:34)
[2017-09-04] MEDS ORDERED: ALBUMIN 25% 12.5 GM/50 ML VIAL IV SCH (19:00)
[2017-09-04] MEDS: PROPOFOL 1000 MG/100 ML 100 ML IV SCH (19:23)
[2017-09-04] MEDS: SODIUM CHLORIDE 0.9% 1,000 ML IV ONE (20:32)
[2017-09-04] MEDS: PANTOPRAZOLE 40 MG VIAL IVP SCH (21:38)
[2017-09-04] MEDS: SODIUM CHLORIDE FLUSH 0.9% 10 ML SYRINGE IVP PRN ×2 (21:51→23:54)
[2017-09-04] MEDS ORDERED: CHLORHEXIDINE GLUCONATE 15 ML UDC PO ONE (22:05)
[2017-09-04] MEDS: ALBUMIN 25% 12.5 GM/50 ML VIAL IV SCH (23:53)
[2017-09-05] MEDS: PHENYLEPHRINE 20 MG in SODIUM CHLORIDE 0.9% 248 ML IV SCH ×2 (02:12→03:45)
[2017-09-05] MEDS: NS W/20 MEQ KCL 1,000 ML IV SCH ×3 (02:44→20:27)
[2017-09-05] MEDS: MORPHINE 2 MG/ML SYRINGE IVP PRN ×7 (03:06→19:40)
[2017-09-05] MEDS: SODIUM CHLORIDE FLUSH 0.9% 10 ML SYRINGE IVP PRN ×5 (03:06→14:38)
[2017-09-05] MEDS: PROPOFOL 1000 MG/100 ML 100 ML IV SCH ×3 (03:48→19:41)
[2017-09-05] MEDS: MIDAZOLAM DRIP 50 MG/100 ML BAG IV SCH ×2 (04:45→15:00)
[2017-09-05 04:57] LABS: BASOPHILS % (AUTO) 0.3 %; EOSINOPHILS % (AUTO) 0.2 %; HCT - HEMATOCRIT 33.4 % (37.0-47.0); HGB - HEMOGLOBIN 11.2 g/dL (12.0-16.0); LYMPHOCYTES % (AUTO) 23.5 %; MEAN CORPUSCULAR HEMOGLOBIN 29.6 pg (27.0-31.0); MEAN CORPUSCULAR HGB CONC 33.5 g/dL (32.0-36.0); MEAN CORPUSCULAR VOLUME 88.5 fL (81.0-99.0); MONOCYTES % (AUTO) 1.7 %; NEUTROPHILS % (AUTO) 74.3 %; RED BLOOD COUNT 3.77 10^6/uL (4.20-5.40); RED CELL DISTRIBUTION WIDTH 15.3 % (12.0-15.0); UNCORRECTED WHITE BLOOD COUNT 12.5 x10^3/uL; WHITE BLOOD COUNT 12.5 x10^3/uL (4.8-10.8)
[2017-09-05 05:01] LABS: ABG BASE EXCESS -11.3 mmol/L (-2.0-3.0); ABG HCO3 15.9 mmol/L (22.0-26.0); ABG OXYGEN SATURATION 99 % (94-98); ABG PCO2 41 mmHg (34-45); ABG PH 7.21 (7.35-7.45); ABG PO2 141 mmHg (80-100); ABG SATURATION PULSE OXIMETRY% 99 %; ABG SITE OF DRAW A-LINE; ABG TCO2 17.2 MMOL/L (21.0-29.0)
[2017-09-05 05:02] LABS: ABG MODE OF VENTILATION ACCESSED/CONTROL; ABG O2 DEVICE VENTILATOR; ABG PEAK END EXPIRATORY PRESSU 5 cmH2O; ABG RESPIRATORY RATE 20 b/min
[2017-09-05 05:04] LABS: ALBUMIN/GLOBULIN RATIO 1.2 (1.0-2.2); BILIRUBIN,TOTAL 0.5 mg/dL (0.2-1.0); CALCIUM 6.9 mg/dL (8.5-10.3); CREATININE 1.3 mg/dL (0.4-1.0); MAGNESIUM 1.7 mg/dL (1.7-2.8); POTASSIUM 5.5 mmol/L (3.5-5.0); TOTAL PROTEIN 4.6 g/dL (6.7-8.2)
[2017-09-05] MEDS: CEFEPIME 1 GM in SODIUM CHLORIDE 0.9% MINIBAG 100 ML IV SCH ×3 (05:52→22:05)
[2017-09-05] MEDS: SODIUM CHLORIDE FLUSH 0.9% 10 ML SYRINGE IVP SCH ×3 (05:52→22:06)
[2017-09-05] MEDS: ALBUMIN 25% 12.5 GM/50 ML VIAL IV SCH ×2 (05:52→11:55)
[2017-09-05] MEDS: SODIUM CHLORIDE 0.9% 1,000 ML IV SCH ×2 (06:04→14:30)
[2017-09-05 06:19] LABS: ABG ANALYSIS TIME 1618; ABG HCO3 14.8 mmol/L (22.0-26.0); ABG PCO2 47 mmHg (34-45); ABG PO2 133 mmHg (80-100); ABG TCO2 16.3 MMOL/L (21.0-29.0)
[2017-09-05 06:20] LABS: ABG BASE EXCESS -14.2 mmol/L (-2.0-3.0); ABG MODE OF VENTILATION ACCESSED/CONTROL; ABG O2 DEVICE VENTILATOR; ABG OXYGEN SATURATION 98 % (94-98); ABG PEAK END EXPIRATORY PRESSU 5 cmH2O; ABG RESPIRATORY RATE 18 b/min; ABG SATURATION PULSE OXIMETRY% 100 %; ABG SITE OF DRAW RIGHT RADIAL
[2017-09-05 06:23] LABS: ABG PH 7.12 (7.35-7.45)
[2017-09-05 06:37] LABS: BAND NEUTROPHILS % (MANUAL) 56 %; EOSINOPHILS % (MANUAL) 1 %; LYMPHOCYTES % (MANUAL) 10 %; NEUTROPHILS % (MANUAL) 7 %; PLATELET ESTIMATE, MANUAL NORMAL (130-450,000) (NORMAL); PLATELET MORPHOLOGY NORMAL APPEARANCE (NORMAL); TOTAL CELLS COUNTED 100
[2017-09-05 06:38] LABS: NP AUTO DIFFERENTIAL? YES; NP MAN DIFFERENTIAL? NO
[2017-09-05] MEDS ORDERED: SODIUM BICARBONATE ABBOJECT 50 MEQ/50 ML SYRINGE IVP ONE (08:23)
[2017-09-05] MEDS: PANTOPRAZOLE 40 MG VIAL IVP SCH ×2 (08:51→21:11)
[2017-09-05] MEDS ORDERED: LACTATED RINGERS 1,000 ML IV SCH ×2 (09:00→16:09)
[2017-09-05] MEDS ORDERED: cefTRIAXone 1 GM VIAL ONE (11:03)
[2017-09-05 12:42] LABS: ABG ANALYSIS TIME 1238; ABG BASE EXCESS -8.2 mmol/L (-2.0-3.0); ABG HCO3 17.7 mmol/L (22.0-26.0); ABG PCO2 37 mmHg (34-45); ABG PH 7.29 (7.35-7.45); ABG PO2 110 mmHg (80-100); ABG TCO2 18.8 MMOL/L (21.0-29.0)
[2017-09-05 12:43] LABS: ABG OXYGEN SATURATION 98 % (94-98); ABG SITE OF DRAW RIGHT RADIAL
[2017-09-05 12:44] LABS: ABG MODE OF VENTILATION ACCESSED/CONTROL; ABG O2 DEVICE VENTILATOR; ABG PEAK END EXPIRATORY PRESSU 5 cmH2O; ABG RESPIRATORY RATE 20 b/min; ABG SATURATION PULSE OXIMETRY% 99 %
[2017-09-05] MEDS: SODIUM CHLORIDE 0.9% 1,000 ML IV ONE (16:00)
[2017-09-05] MEDS ORDERED: SODIUM CHLORIDE 0.9% 500 ML IV ONE (16:04)
[2017-09-05] MEDS ORDERED: SODIUM CHLORIDE 0.9% 1,000 ML IV SCH (16:09)
[2017-09-05] MEDS: VECURONIUM 100 MG in SODIUM CHLORIDE 0.9% 100ML 100 ML IV SCH (17:00)
[2017-09-05] MEDS ORDERED: LACTATED RINGERS 1,000 ML IV ONE (17:10)
--- NOTE | 2017-09-05 18:05 | PROVIDER PROGRESS NOTE ---
Assessment/Plan - Problem List (1) Perforated sigmoid colon Assessment/Plan: As per the Surgeon, a repeat abdominal surgery is planned for later today. Continue all present supportive care. (2) Septic shock Assessment/Plan: Continue broad-spectrum IV antibiotics. Await cultures. Continue IV hydration at a rapid rate to maintain urine output. Follow her CMP and CBC. Because of continued tachycardia, and a murmur order troponins and an Echo. (3) S/P laparotomy Assessment/Plan: The abdominal wall was not sutured, as repeat surgery is planned. Continue with sedation plus a paralyzed patient and ventilator support. Given empiric pain medications with morphine and follow her Vital signs for signs of undertreatment - Current Meds Current Meds: Current Medications Generic Name Dose Route Start Last Admin Trade Name Freq PRN Reason Stop Dose Admin Norepinephrine Bitartrate 8 mg 250 mls @ 15 mls/hr 09/04/17 12:00 09/05/17 16 :46 / Dextrose IV Infused .[id number] AMNA Titration Protocol 8 MCG/MIN Vecuronium Flint 100 mg/ 100 mls @ 3.69 mls/hr 09/04/17 16:00 09/05/17 17: 00 Sodium Chloride IV 1.4 mcg/kg/min .[id number] AMNA 5.16 mls/hr Protocol Administration 1 MCG/KG/MIN Cefepime HCl 1 gm/ Sodium 100 mls @ 200 mls/hr 09/04/17 19:00 09/05/17 14:40 Chloride IV 09/14/17 23:55 Infused TID AMNA Infusion Midazolam HCl 50 mg in 100 mls @ 4.92 mls/hr 09/04/17 19:00 09/05/17 17:00 Versed Drip IV 0.08 mg/kg/hr .[id number] AMNA 9.84 mls/hr Protocol Titration 0.04 MG/KG/HR Propofol 100 mls @ 3.69 mls/hr 09/04/17 19:00 09/05/17 17:00 Diprivan IV 35 mcg/kg/min .Q27H7M AMNA 12.915 mls/hr Protocol Titration 10 MCG/KG/MIN Lactated Ringer's 1,000 mls @ 250 mls/hr 09/05/17 16:09 09/05/17 17:00 Lr IV 250 mls/hr .Q4H AMNA Infusion Sodium Chloride 1,000 mls @ 250 mls/hr 09/05/17 16:09 09/05/17 17:00 Normal Saline 0.9% IV 250 mls/hr .Q4H AMNA Infusion Morphine Sulfate 2 mg 09/03/17 20:35 09/05/17 14:30 Morphine IVP 2 mg Q2H PRN Administration Pain 8 to 10 Multi-Ingred Cream/Lotion/Oil/Oint 1 applic 09/04/17 16:00 09/04/17 21:32 Lubrifresh Pm Ophth Oint EACHEYE Not Given QPM AMNA Pantoprazole Sodium 40 mg 09/04/17 21:00 09/05/17 08:51 Protonix IVP 40 mg BID AMNA Administration Sodium Chloride 10 ml 09/04/17 22:00 09/05/17 14:19 Normal Saline Flush 0.9% IVP 10 ml Q8HR AMNA Administration Sodium Chloride 10 ml 09/04/17 15:48 09/05/17 14:38 Normal Saline Flush 0.9% IVP 10 ml PRN PRN Administration NEEDED PER PROVIDER ORDERS - Lab Result Fish Bone Diagrams: 09/05/17 04:35 09/05/17 12:25 - Additional Planning My Orders: My Active Orders 09/04/17 19:00 Midazolam Drip [Versed Drip] 50 mg in 100 ml IV 0.04 mg/kg/hr Propofol 1000 mg/100 ml [Diprivan] 100 ml IV 10 mcg/kg/min 09/04/17 21:00 Pantoprazole [Protonix] 40 mg IVP BID 09/05/17 04:57 Ventilator Setting Changes [RC] PRN 09/05/17 07:54 Airway Suctioning [Suction] [RC] PRN 09/05/17 12:50 Arterial Blood Gases - RT [RC] .ONCE 09/05/17 14:00 Echo Transthoracic Complete [ECHO] Routine 09/05/17 16:09 Lactated Ringers [Lr] 1,000 ml IV 250 mls/hr Sodium Chloride 0.9% [Normal Saline 0.9%] 1,000 ml IV 250 mls/hr Subjective - Subjective Nursing Reports: Other (After the OR yesterday, she returned to the ICU intubated, paralyzed and remained on Versed drip, propofol drip, pressure support with Levophed and Dewayne-Synephrine drips and IV hydration overnight.) Objective Vital Signs: Vital Signs - 24 hr 09/04/17 09/04/17 09/04/17 19:00 19:06 19:59 Temperature 37.0 C Heart Rate 116 H Heart Rate [ 114 H 112 H Monitoring electrodes] Respiratory 20 20 Rate Blood Pressure 110/80 89/65 L [Right Brachial artery] Blood Pressure [Right Radial artery] O2 Saturation 97 98 09/04/17 09/04/17 09/04/17 21:00 22:00 23:00 Temperature Heart Rate 110 H Heart Rate [ 112 H Monitoring electrodes] Respiratory 20 22 20 Rate Blood Pressure 99/75 92/71 101/73 [Right Brachial artery] Blood Pressure [Right Radial artery] O2 Saturation 100 99 98 09/04/17 09/05/17 09/05/17 23:28 00:00 00:59 Temperature 37.1 C Heart Rate 113 H Heart Rate [ 111 H 110 H Monitoring electrodes] Respiratory 20 20 Rate Blood Pressure 95/70 106/72 [Right Brachial artery] Blood Pressure [Right Radial artery] O2 Saturation 99 99 09/05/17 09/05/17 09/05/17 01:40 02:00 03:00 Temperature Heart Rate 110 H Heart Rate [ 111 H 113 H Monitoring electrodes] Respiratory 20 20 Rate Blood Pressure 103/70 105/73 [Right Brachial artery] Blood Pressure [Right Radial artery] O2 Saturation 99 99 09/05/17 09/05/17 09/05/17 04:00 04:49 05:00 Temperature 37.1 C Heart Rate 112 H Heart Rate [ 112 H 113 H Monitoring electrodes] Respiratory 20 20 Rate Blood Pressure 105/74 104/72 [Right Brachial artery] Blood Pressure [Right Radial artery] O2 Saturation 98 99 09/05/17 09/05/17 09/05/17 06:00 07:00 07:34 Temperature Heart Rate 112 H Heart Rate [ 112 H 111 H Monitoring electrodes] Respiratory 20 20 Rate Blood Pressure 101/69 112/72 [Right Brachial artery] Blood Pressure [Right Radial artery] O2 Saturation 99 99 09/05/17 09/05/17 09/05/17 08:00 09:00 09:05 Temperature 37 C Heart Rate 113 H Heart Rate [ 113 H 112 H Monitoring electrodes] Respiratory 20 20 Rate Blood Pressure 95/59 L 108/69 [Right Brachial artery] Blood Pressure 115/70 100/60 [Right Radial artery] O2 Saturation 97 98 09/05/17 09/05/17 09/05/17 10:00 10:57 10:58 Temperature 37.3 C 37.3 C Heart Rate 114 H Heart Rate [ 114 H 113 H Monitoring electrodes] Respiratory 20 20 Rate Blood Pressure 100/62 115/74 [Right Brachial artery] Blood Pressure 106/73 111/67 [Right Radial artery] O2 Saturation 99 99 09/05/17 09/05/17 09/05/17 12:00 12:52 13:00 Temperature 37.2 C 37.3 C Heart Rate 138 H Heart Rate [ 114 H 137 H Monitoring electrodes] Respiratory 20 20 Rate Blood Pressure 101/74 105/71 [Right Brachial artery] Blood Pressure 100/64 93/62 [Right Radial artery] O2 Saturation 98 98 09/05/17 09/05/17 09/05/17 14:00 15:00 15:32 Temperature 37.2 C 37.3 C Heart Rate 113 H Heart Rate [ 137 H 117 H Monitoring electrodes] Respiratory 20 20 Rate Blood Pressure 109/77 113/69 [Right Brachial artery] Blood Pressure 103/69 92/62 [Right Radial artery] O2 Saturation 98 98 09/05/17 09/05/17 16:00 17:00 Temperature 37.2 C Heart Rate Heart Rate [ 109 H 110 H Monitoring electrodes] Respiratory 20 Rate Blood Pressure 111/71 [Right Brachial artery] Blood Pressure 100/62 107/68 [Right Radial artery] O2 Saturation Oxygen O2 Source Mechanical ventilator I&O (Last 24 Hrs): Intake and Output Totals x24h 09/03/17 09/04/17 09/05/17 23:59 23:59 23:59 Intake Total 450 6385.011 4928.067 Output Total 790 1606 Balance 450 5595.011 3322.067 General: Other (Sedated and paralyzed, Intubated with ET tube) Neck: Supple Cardiovascular: Regular rate, Other (2-3/6 systolic murmur in LLSB, no gallop or RV heave.) Respiratory: No respiratory distress Abdomen: Other (Wrapped post-op. Tube draining minimal serous fluid) Genitourinary: Other (Gaspar in place) Extremities: No edema - Results Results: Laboratory Results WBC 12.5 x10^3/uL (4.8-10.8) H 09/05/17 04:35 RBC 3.77 10^6/uL (4.20-5.40) L 09/05/17 04:35 Hgb 11.2 g/dL (12.0-16.0) L 09/05/17 04:35 Hct 33.4 % (37.0-47.0) L 09/05/17 04:35 MCV 88.5 fL (81.0-99.0) 09/05/17 04:35 MCH 29.6 pg (27.0-31.0) 09/05/17 04:35 MCHC 33.5 g/dL (32.0-36.0) 09/05/17 04:35 RDW 15.3 % (12.0-15.0) H 09/05/17 04:35 Plt Count 199 10^3/uL (130-450) 09/05/17 04:35 MPV 10.0 fL (7.9-10.8) 09/05/17 04:35 Neut # Not Reportable 09/05/17 04:35 Lymph # Not Reportable 09/05/17 04:35 [place]ite # Not Reportable 09/05/17 04:35 Eos # Not Reportable 09/05/17 04:35 Baso # Not Reportable 09/05/17 04:35 Absolute Nucleated RBC Not Reportable 09/05/17 04:35 Total Counted 100 09/05/17 04:35 Band Neuts % (Manual) 56 % (0-10) H 09/05/17 04:35 Reactive Lymphs % (Man) 15 % 09/05/17 04:35 Abnorm Lymph % (Manual) 0 % 09/05/17 04:35 Metamyelocytes % 6 % (-0) H 09/05/17 04:35 Myelocytes % 1 % (-0) H 09/04/17 16:22 Nucleated RBC % Not Reportable 09/05/17 04:35 Neutrophils # (Manual) 7.9 10^3/uL (1.5-6.6) H 09/05/17 04:35 Lymphocytes # (Manual) 3.1 10^3/uL (1.5-3.5) 09/05/17 04:35 Monocytes # (Manual) 0.6 10^3/uL (0.0-1.0) 09/05/17 04:35 Eosinophils # (Manual) 0.1 10^3/uL (0-0.7) 09/05/17 04:35 Basophils # (Manual) 0.0 10^3/uL (0-0.1) 09/05/17 04:35 Differential Comment MANUAL DIFFERENTIAL 09/05/17 04:35 Manual Slide Review Indicated 09/04/17 16:22 Platelet Estimate NORMAL (130-450,000) (NORMAL) 09/05/17 04:35 Platelet Morphology NORMAL APPEARANCE (NORMAL) 09/05/17 04:35 RBC Morph Micro Appear NORMAL APPEARANCE (NORMAL) 09/05/17 04:35 PT 15.4 secs (9.9-12.6) H 09/04/17 05:45 INR 1.4 (0.8-1.2) H 09/04/17 05:45 Bld Gas Analysis Time 1238 09/05/17 12:30 Sample Site RIGHT RADIAL 09/05/17 12:30 ABG pH 7.29 (7.35-7.45) L 09/05/17 12:30 ABG pCO2 37 mmHg (34-45) 09/05/17 12:30 ABG pO2 110 mmHg (80-100) H 09/05/17 12:30 ABG HCO3 17.7 mmol/L (22.0-26.0) L 09/05/17 12:30 ABG Total CO2 18.8 MMOL/L (21.0-29.0) L 09/05/17 12:30 ABG O2 Saturation 98 % (94-98) 09/05/17 12:30 ABG Oximetry Spot Check 99 % 09/05/17 12:30 ABG Base Excess -8.2 mmol/L (-2.0-3.0) L 09/05/17 12:30 Angel Luis Test NOT APPLICABLE 09/05/17 12:30 Respiration Rate 20 b/min 09/05/17 12:30 O2 Delivery Device VENTILATOR 09/05/17 12:30 Vent Mode ACCESSED/CONTROL 09/05/17 12:30 FiO2 40.00 09/05/17 12:30 Tidal Volume 450 mL 09/05/17 12:30 PEEP 5 cmH2O 09/05/17 12:30 Sodium 136 mmol/L (135-145) 09/05/17 04:35 Potassium 4.9 mmol/L (3.5-5.0) 09/05/17 12:25 Chloride 110 mmol/L (101-111) 09/05/17 04:35 Carbon Dioxide 17 mmol/L (21-32) L 09/05/17 04:35 Anion Gap 9.0 (6-13) 09/05/17 04:35 BUN 29 mg/dL (6-20) H 09/05/17 04:35 Creatinine 1.3 mg/dL (0.4-1.0) H 09/05/17 04:35 Estimated GFR (MDRD) 41 (>89) L 09/05/17 04:35 Glucose 93 mg/dL (70-100) 09/05/17 04:35 POC Whole Bld Glucose 96 mg/dL (70 - 100) 09/04/17 17:01 Glycated Hemoglobin 5.8 % (4.6-6.2) 09/04/17 05:45 Estim Average Glucose 120 (70-100) H 09/04/17 05:45 Lactic Acid 1.4 mmol/L (0.5-2.2) 09/05/17 04:35 Calcium 6.9 mg/dL (8.5-10.3) L 09/05/17 04:35 Ionized Calcium NO 09/03/17 21:48 Phosphorus 5.0 mg/dL (2.5-4.6) H 09/05/17 04:35 Magnesium 1.7 mg/dL (1.7-2.8) 09/05/17 04:35 Total Bilirubin 0.5 mg/dL (0.2-1.0) 09/05/17 04:35 AST 85 IU/L (10-42) H 09/05/17 04:35 ALT 58 IU/L (10-60) 09/05/17 04:35 Alkaline Phosphatase 31 IU/L (42-121) L 09/05/17 04:35 Troponin I 0.09 ng/mL (<0.49) 09/05/17 12:25 Total Protein 4.6 g/dL (6.7-8.2) L 09/05/17 04:35 Albumin 2.5 g/dL (3.2-5.5) L 09/05/17 04:35 Globulin 2.1 g/dL (2.1-4.2) 09/05/17 04:35 Albumin/Globulin Ratio 1.2 (1.0-2.2) 09/05/17 04:35 Lipase 13 U/L (22-51) L 09/03/17 16:07 Urine Color YELLOW 09/03/17 22:19 Urine Clarity CLEAR (CLEAR) 09/03/17 22:19 Urine pH 5.5 PH (5.0-7.5) 09/03/17 22:19 Ur Specific [place] >=1.030 (1.002-1.030) H 09/03/17 22:19 Urine Protein 30 mg/dL (NEGATIVE) H 09/03/17 22:19 Urine Glucose (UA) 250 mg/dL (NEGATIVE) H 09/03/17 22:19 Urine Ketones NEGATIVE mg/dL (NEGATIVE) 09/03/17 22:19 Urine Occult Blood NEGATIVE (NEGATIVE) 09/03/17 22:19 Urine Nitrite NEGATIVE (NEGATIVE) 09/03/17 22:19 Urine Bilirubin NEGATIVE (NEGATIVE) 09/03/17 22:19 Urine Urobilinogen 0.2 (NORMAL) E.U./dL (NORMAL) 09/03/17 22:19 Ur Leukocyte Esterase NEGATIVE (NEGATIVE) 09/03/17 22:19 Urine RBC None Seen /HPF (0-5) 09/03/17 22:19 Urine WBC 0-3 /HPF (0-5) 09/03/17 22:19 Ur Squamous Epith Cells FEW Squamous (<= Few) 09/03/17 22:19 Urine Bacteria None Seen /HPF (None Seen) 09/03/17 22:19 Urine Casts >50 Hyaline Casts /LPF0-2 Fine Granular /LPF 09/03/17 22:19 Urine Casts >50 Hyaline Casts /LPF0-2 Fine Granular /LPF 09/03/17 22:19 Ur Microscopic Review INDICATED 09/03/17 22:19 Urine Culture Comments NOT INDICATED 09/03/17 22:19
[2017-09-05] MEDS ORDERED: SODIUM CHLORIDE 0.9% 1,000 ML IV ONE (19:10)
--- NOTE | 2017-09-05 19:31 | OPERATIVE REPORT ---
Operative Report - General Admit Date: 09/03/17 Planned Procedure: Relook laparotomy with establishment of intestinal continuity , end colostom Pre-Op Diagnosis: Damage control operation 24 hours ago , discontinuous bowel, open abdomen Procedure Performed: Relook after 24 hours of ICU/medical/pressor/fluid support with resection of necrotic-questionable small bowel and right colon, ileocolostomy, abdominal washout, end descending colostomy, closure of abdomen. Post Op Diagnosis: Known discontinuous bowel, necrotic ileum and questionable right colon - Procedure Note Primary Surgeon: Wilbert Hernández MD Anesthesia Provider: Wilbert Rodríguez MD Anesthesia Technique: General ET tube IV Fluids (mL): 1,000 Estimated Blood Loss (mL): 150 Drain/Tube Type: Estevan drain (Please note that another Estevan drain was NOT put in but the drain I placed yesterday was left in place.) Complications: None. - Other Other Information/Narrative: OPERATIVE DESCRIPTION/REPORT: Additional consent was not obtained in this case as today's procedure was a continuation of yesterday's procedure. The patient was left with discontinuous bowel and an open abdomen receiving "general anesthesia" for the past 24 hours conbtinuously with the plan for today's relook operation. The patient was brought to the operative suite and placed supine on the operating table. Great care was taken to avoid pressure points to prevent pressure necrosis or nerve injury. Monitoring devices were applied along with TEDs and pneumatic compressive stockings (to prevent DVT). The patient received preoperative antibiotics for surgical prophylaxis. Dr. Wilbert Rodríguez continued the anesthesia care for the patient for the entire procedure. A "time in" then confirmed that the patient was identified with 3 identifiers (name, birthdate and medical record number), the history and physical was in the chart, the patient was in the correct position, the aforementioned prophylactic measures were in place or given, we had the correct personnel and equipment to complete the procedure and that anesthesia, surgery and nursing were given an opportunity to express any concerns. With the agreement of everyone in the room, we proceeded with the operation. The Ioban drape was removed as was the green towel and the Fish retractor. The abdomen was then copiously irrigated prepped with Betadine solution. Exploration of the abdomen revealed a large amount of serosanguineous fluid which was removed via suction. The Borrero's pouch was noted to be intact with both Prolene sutures still in place. The distal descending colon staple line was also noted to be intact and the colon looked to be healthy with the exception of the right colon just distal to the staple line. Examination of the terminal ileum revealed that there was patchy necrosis at the distal 8 cm. I resected this small bowel with the application of a ALEISHA-75 stapler and the mesentery was taken sequentially using LigaSure. The questionable right colon was similarly resected with the application of the ALEISHA stapler and again the colonic mesentery taken with serial application of the LigaSure. The ileum was then lined up against the colon using the antimesenteric order of the ileum and the tenia of the colon and 2-0 Vicryl sutures were used to hold the bowel together. A small ileotomy was made at the staple line as well as a colotomy and one end of the ALEISHA stapler was inserted into the colotomy and the other end into the ileotomy and the ALEISHA stapler was put together and fired thus creating the ileocolostomy. The combined defect was then closed using another application of the ALEISHA stapler in a transverse fashion. Manual examination revealed a widely patent anastomosis. This anastomosis was then buttressed circumferentially using 3-0 Vicryl sutures in a Lembert fashion. This was then placed back into the abdomen. The mesentery was not closed. Attention was then directed toward creating the end colostomy. Some additional length on the colon was created by dissecting along the white line of Toldt using the LigaSure. A circular incision was made in the skin using a scalpel and the subcutaneous tissues were excised using Bovie electrocautery. A cruciate incision was made in the anterior fascia using Bovie electrocautery. The muscle was split and a linear incision was made using Bovie electrocautery in the posterior fascia and peritoneum using my hand to protect the bowel. A Liguori was used to grab the distal end of the descending colon and bring it up through the skin incision. This came up easily and without tension. The abdomen was copiously irrigated using warm sterile saline. A looped 0 PDS suture starting superiorly and inferiorly and running to tie in the middle. The subcutaneous tissues were copiously irrigated using sterile saline. A tunnel was placed over this and attention was directed towards creating the colostomy. The colostomy was then performed using interrupted 3-0 Vicryl sutures at the 12 3 6 and 9 o'clock position taking care to fold the mucosa down. This was made somewhat more difficult by the edematous nature of the bowel. Additional sutures were placed in between the initial 4 sutures. An ostomy appliance was placed. The skin was gently approximated using 2 3-0 nylon sutures just below the umbilicus and assisted between the umbilicus and the pubic tubercle to lessen the amount of packing that would be required and to help line of the skin for a good cosmetic result. The subcutaneous tissues were then packed using half- inch iodoform gauze. The prep was washed off. A dressing was placed on the wound. All surgical counts were reported as correct x2. Please note the drain was not removed during this case. Having tolerated the procedure, the patient was subsequently taken to the intensive care unit in critical condition. Dragon disclaimer: This document was created in part using voice recognition technology. Because of the inherent limitations of the system ([employer]'s Dragon Dict[employer] user manual states that the licensee understands that speech recognition is a statistical process and that recognition errors are inherent in the process), occasional same sounding word substitutions and grammatical errors do occur and persist despite proofreading. Please read this document for context.
[2017-09-05 19:39] LABS: BASOPHILS % (AUTO) 0.1 %; EOSINOPHILS % (AUTO) 0.9 %; HCT - HEMATOCRIT 27.1 % (37.0-47.0); HGB - HEMOGLOBIN 8.8 g/dL (12.0-16.0); LYMPHOCYTES % (AUTO) 16.4 %; MEAN CORPUSCULAR HGB CONC 32.5 g/dL (32.0-36.0); MEAN CORPUSCULAR VOLUME 89.1 fL (81.0-99.0); MEAN PLATELET VOLUME 9.8 fL (7.9-10.8); MONOCYTES % (AUTO) 1.4 %; NEUTROPHILS % (AUTO) 81.2 %; RED BLOOD COUNT 3.04 10^6/uL (4.20-5.40); RED CELL DISTRIBUTION WIDTH 15.3 % (12.0-15.0); UNCORRECTED WHITE BLOOD COUNT 9.7 x10^3/uL; WHITE BLOOD COUNT 9.7 x10^3/uL (4.8-10.8)
[2017-09-05 19:55] LABS: ALBUMIN/GLOBULIN RATIO 1.2 (1.0-2.2); BILIRUBIN,TOTAL 0.7 mg/dL (0.2-1.0); CALCIUM 6.9 mg/dL (8.5-10.3); CREATININE 1.4 mg/dL (0.4-1.0); MAGNESIUM 1.6 mg/dL (1.7-2.8); PHOSPHORUS 3.9 mg/dL (2.5-4.6); POTASSIUM 4.3 mmol/L (3.5-5.0); TOTAL PROTEIN 4.1 g/dL (6.7-8.2)
[2017-09-05 19:58] LABS: BAND NEUTROPHILS % (MANUAL) 34 %; BASOPHILS % (MANUAL) 1 %; LYMPHOCYTES % (MANUAL) 13 %; NEUTROPHILS % (MANUAL) 45 %; PLATELET ESTIMATE, MANUAL NORMAL (130-450,000) (NORMAL); PLATELET MORPHOLOGY NORMAL APPEARANCE (NORMAL); TOTAL CELLS COUNTED 100
[2017-09-05 19:59] LABS: NP AUTO DIFFERENTIAL? YES; NP MAN DIFFERENTIAL? NO
[2017-09-05] MEDS ORDERED: HYDROmorphone 0.5 MG/0.5 ML SYRINGE ONE (20:46)
[2017-09-05] MEDS: MINERAL OIL/PETROLAT OPHTH OINT EACHEYE SCH (21:11)
[2017-09-05] MEDS: ACETAMINOPHEN 1,000 MG/100 ML 100 ML IV SCH (21:11)
[2017-09-05] MEDS: HYDROmorphone 0.5 MG/0.5 ML SYRINGE IVP PRN (23:32)
[2017-09-06] MEDS: HYDROmorphone 0.5 MG/0.5 ML SYRINGE IVP PRN ×11 (02:15→22:58)
[2017-09-06] MEDS: ACETAMINOPHEN 1,000 MG/100 ML 100 ML IV SCH ×4 (03:05→20:36)
[2017-09-06] MEDS: NS W/20 MEQ KCL 1,000 ML IV SCH (04:45)
[2017-09-06 05:07] LABS: ABG BASE EXCESS -9.7 mmol/L (-2.0-3.0); ABG HCO3 15.4 mmol/L (22.0-26.0); ABG O2 DEVICE VENTILATOR; ABG OXYGEN SATURATION 98 % (94-98); ABG PCO2 31 mmHg (34-45); ABG PH 7.31 (7.35-7.45); ABG PO2 107 mmHg (80-100); ABG SATURATION PULSE OXIMETRY% 98 %; ABG SITE OF DRAW A-LINE; ABG TCO2 16.4 MMOL/L (21.0-29.0)
[2017-09-06 05:08] LABS: ABG MODE OF VENTILATION SIMV; ABG PEAK END EXPIRATORY PRESSU 5 cmH2O; ABG PRESSURE SUPPORT VENT 10 cmH2O; ABG RESPIRATORY RATE 20 b/min
[2017-09-06] MEDS: CEFEPIME 1 GM in SODIUM CHLORIDE 0.9% MINIBAG 100 ML IV SCH ×3 (05:10→21:36)
[2017-09-06] MEDS: SODIUM CHLORIDE FLUSH 0.9% 10 ML SYRINGE IVP SCH ×3 (05:10→21:36)
[2017-09-06 05:25] LABS: BASOPHILS % (AUTO) 0.4 %; EOSINOPHILS % (AUTO) 1.4 %; HCT - HEMATOCRIT 27.6 % (37.0-47.0); LYMPHOCYTES % (AUTO) 16.9 %; MEAN CORPUSCULAR HEMOGLOBIN 28.9 pg (27.0-31.0); MEAN CORPUSCULAR HGB CONC 32.5 g/dL (32.0-36.0); MEAN CORPUSCULAR VOLUME 89.1 fL (81.0-99.0); MEAN PLATELET VOLUME 10.2 fL (7.9-10.8); MONOCYTES % (AUTO) 0.5 %; NEUTROPHILS % (AUTO) 80.8 %; RED BLOOD COUNT 3.09 10^6/uL (4.20-5.40); RED CELL DISTRIBUTION WIDTH 15.4 % (12.0-15.0); UNCORRECTED WHITE BLOOD COUNT 9.4 x10^3/uL; WHITE BLOOD COUNT 9.4 x10^3/uL (4.8-10.8)
[2017-09-06 05:35] LABS: ALBUMIN/GLOBULIN RATIO 1.1 (1.0-2.2); CALCIUM 7.2 mg/dL (8.5-10.3); CREATININE 1.4 mg/dL (0.4-1.0); MAGNESIUM 1.7 mg/dL (1.7-2.8); PHOSPHORUS 3.8 mg/dL (2.5-4.6); POTASSIUM 4.7 mmol/L (3.5-5.0); TOTAL PROTEIN 4.3 g/dL (6.7-8.2)
[2017-09-06] MEDS ORDERED: DEXTROSE 50% ABBOJECT 25 GM/50 ML SYRINGE IVP SCH (05:49)
[2017-09-06 06:05] LABS: BAND NEUTROPHILS % (MANUAL) 28 %; LYMPHOCYTES % (MANUAL) 21 %; NEUTROPHILS % (MANUAL) 46 %; TOTAL CELLS COUNTED 100
[2017-09-06] MEDS ORDERED: SODIUM BICARBONATE ABBOJECT 50 MEQ/50 ML SYRINGE IVP SCH (06:05)
[2017-09-06 06:06] LABS: NP AUTO DIFFERENTIAL? YES; NP MAN DIFFERENTIAL? NO; PLATELET ESTIMATE, MANUAL NORMAL (130-450,000) (NORMAL)
[2017-09-06] MEDS: DEXTROSE 5%-LACTATED RINGERS 1,000 ML IV SCH ×2 (08:00→16:01)
[2017-09-06] MEDS: SODIUM CHLORIDE FLUSH 0.9% 10 ML SYRINGE IVP PRN ×6 (08:43→17:11)
[2017-09-06] MEDS ORDERED: [UNRECOGNIZED DRUG - REMARK] PO SCH (09:00)
--- NOTE | 2017-09-06 09:10 | PROVIDER PROGRESS NOTE ---
Subjective - General Admit Date: 09/03/17 Procedure Date: 09/05/17 Post Op Days: 1 Procedure Performed: Relook with ileal resection, colon resection, ileocolostomy , end colostomy - Review of Systems Wound/Incisions: positive: Dressing dry and intact Drain Type: 19 Fr Estevan Drain Output Description: Serosanguinous Approximate mls Output: 1000 General: positive: Other (Patient intubated and sedated.) - Other Other Information/Narrative: Patient intubated and sedated. Cannot talk with her. Paralytic turned off and patient with motion. Objective - Patient Data Reviewed Vital Signs: Yes Vital Signs: Vital Signs x48h Temp Pulse Pulse Resp BP BP Pulse Ox 09/06/17 08:16 106 H 09/06/17 07:59 36.7 C 104 H 13 162/92 H 139/76 H 96 09/06/17 07:00 108 H 16 160/101 H 161/85 H 96 09/06/17 06:00 111 H 16 149/83 H 119/64 96 09/06/17 05:47 104 H 09/06/17 05:46 103 H 09/06/17 05:00 104 H 20 154/95 H 136/73 H 98 09/06/17 04:00 36.9 C 106 H 20 139/78 H 156/95 H 98 09/06/17 03:00 108 H 20 147/91 H 132/76 H 98 09/06/17 02:00 109 H 20 151/99 H 156/83 H 98 09/06/17 01:35 111 H 09/06/17 01:00 111 H 20 137/82 H 130/76 98 Intake & Output: Intake and Output Totals x24h 09/04/17 09/05/17 09/06/17 23:59 23:59 23:59 Intake Total 6385.011 6836.157 1770.143 Output Total 790 2171 1587 Balance 5595.011 4665.157 183.143 - Lab Results Lab Results: 09/06/17 04:50 09/06/17 04:50 Other Lab Results: Lab Results x24hrs 09/06/17 09/06/17 09/06/17 Range/Units 06:06 04:50 04:50 WBC (4.8-10.8) x10^3/uL RBC (4.20-5.40) 10^6/uL Hgb (12.0-16.0) g/dL Hct (37.0-47.0) % MCV (81.0-99.0) fL MCH (27.0-31.0) pg MCHC (32.0-36.0) g/dL RDW (12.0-15.0) % Plt Count (130-450) 10^3/uL MPV (7.9-10.8) fL Neut # Lymph # Rhea # Eos # Baso # Absolute Nucleated RBC Total Counted Band Neuts % (Manual) (0 - 10) % Abnorm Lymph % (Manual) % Metamyelocytes % ( - 0) % Nucleated RBC % Neutrophils # (Manual) (1.5-6.6) 10^3/uL Lymphocytes # (Manual) (1.5-3.5) 10^3/uL Monocytes # (Manual) (0.0-1.0) 10^3/uL Eosinophils # (Manual) (0-0.7) 10^3/uL Basophils # (Manual) (0-0.1) 10^3/uL Nucleated RBCs % Differential Comment Manual Slide Review WBC Morphology (NORMAL) Platelet Estimate (NORMAL) Platelet Morphology (NORMAL) RBC Morph Micro Appear (NORMAL) Bld Gas Analysis Time 0504 Sample Site A-LINE ABG pH 7.31 L (7.35-7.45) ABG pCO2 31 L (34-45) mmHg ABG pO2 107 H (80-100) mmHg ABG HCO3 15.4 L (22.0-26.0) mmol/L ABG Total CO2 16.4 L (21.0-29.0) MMOL/L ABG O2 Saturation 98 (94-98) % ABG Oximetry Spot Check 98 % ABG Base Excess -9.7 L (-2.0-3.0) mmol/L Angel Luis Test NOT APPLICABLE Respiration Rate 20 b/min O2 Delivery Device VENTILATOR Vent Mode SIMV FiO2 30.00 Tidal Volume 450 mL PEEP 5 cmH2O Pressure Support Vent 10 cmH2O Sodium 138 (135-145) mmol/L Potassium 4.7 (3.5-5.0) mmol/L Chloride 113 H (101-111) mmol/L Carbon Dioxide 17 L (21-32) mmol/L Anion Gap 8.0 (6-13) BUN 30 H (6-20) mg/dL Creatinine 1.4 H (0.4-1.0) mg/dL Estimated GFR (MDRD) 38 L (>89) Glucose 64 L (70-100) mg/dL POC Whole Bld Glucose 196 H (70 - 100) mg/dL Calcium 7.2 L (8.5-10.3) mg/dL Phosphorus 3.8 (2.5-4.6) mg/dL Magnesium 1.7 (1.7-2.8) mg/dL Total Bilirubin 1.0 (0.2-1.0) mg/dL AST 138 H (10-42) IU/L ALT 89 H (10-60) IU/L Alkaline Phosphatase 54 (42-121) IU/L Troponin I (<0.49) ng/mL Total Protein 4.3 L (6.7-8.2) g/dL Albumin 2.3 L (3.2-5.5) g/dL Globulin 2.0 L (2.1-4.2) g/dL Albumin/Globulin Ratio 1.1 (1.0-2.2) 09/06/17 09/05/17 09/05/17 Range/Units 04:50 19:33 19:33 WBC 9.4 9.7 (4.8-10.8) x10^3/uL RBC 3.09 L 3.04 L (4.20-5.40) 10^6/uL Hgb 9.0 L 8.8 L (12.0-16.0) g/dL Hct 27.6 L 27.1 L (37.0-47.0) % MCV 89.1 89.1 (81.0-99.0) fL MCH 28.9 29.0 (27.0-31.0) pg MCHC 32.5 32.5 (32.0-36.0) g/dL RDW 15.4 H 15.3 H (12.0-15.0) % Plt Count 147 153 (130-450) 10^3/uL MPV 10.2 9.8 (7.9-10.8) fL Neut # Not Reportable Not Reportable Lymph # Not Reportable Not Reportable Rhea # Not Reportable Not Reportable Eos # Not Reportable Not Reportable Baso # Not Reportable Not Reportable Absolute Nucleated RBC Not Reportable Not Reportable Total Counted 100 100 Band Neuts % (Manual) 28 H 34 H (0 - 10) % Abnorm Lymph % (Manual) 0 0 % Metamyelocytes % 2 H ( - 0) % Nucleated RBC % Not Reportable Not Reportable Neutrophils # (Manual) 7.0 H 7.7 H (1.5-6.6) 10^3/uL Lymphocytes # (Manual) 2.0 1.3 L (1.5-3.5) 10^3/uL Monocytes # (Manual) 0.5 0.5 (0.0-1.0) 10^3/uL Eosinophils # (Manual) 0.0 0.0 (0-0.7) 10^3/uL Basophils # (Manual) 0.0 0.1 (0-0.1) 10^3/uL Nucleated RBCs 1 % Differential Comment MANUAL DIFFERENTIAL MANUAL DIFFERENTIAL Manual Slide Review Indicated WBC Morphology 2+ TOXIC GRANULATION (NORMAL) Platelet Estimate NORMAL (130-450,000) NORMAL (130-450,000) (NORMAL) Platelet Morphology NORMAL APPEARANCE (NORMAL) RBC Morph Micro Appear NORMAL APPEARANCE 1+ HYPOCHROMASIA (NORMAL) Bld Gas Analysis Time Sample Site ABG pH (7.35-7.45) ABG pCO2 (34-45) mmHg ABG pO2 (80-100) mmHg ABG HCO3 (22.0-26.0) mmol/L ABG Total CO2 (21.0-29.0) MMOL/L ABG O2 Saturation (94-98) % ABG Oximetry Spot Check % ABG Base Excess (-2.0-3.0) mmol/L Angel Luis Test Respiration Rate b/min O2 Delivery Device Vent Mode FiO2 Tidal Volume mL PEEP cmH2O Pressure Support Vent cmH2O Sodium 138 (135-145) mmol/L Potassium 4.3 (3.5-5.0) mmol/L Chloride 113 H (101-111) mmol/L Carbon Dioxide 18 L (21-32) mmol/L Anion Gap 7.0 (6-13) BUN 27 H (6-20) mg/dL Creatinine 1.4 H (0.4-1.0) mg/dL Estimated GFR (MDRD) 38 L (>89) Glucose 80 (70-100) mg/dL POC Whole Bld Glucose (70 - 100) mg/dL Calcium 6.9 L (8.5-10.3) mg/dL Phosphorus 3.9 (2.5-4.6) mg/dL Magnesium 1.6 L (1.7-2.8) mg/dL Total Bilirubin 0.7 (0.2-1.0) mg/dL AST 95 H (10-42) IU/L ALT 56 (10-60) IU/L Alkaline Phosphatase 35 L (42-121) IU/L Troponin I (<0.49) ng/mL Total Protein 4.1 L (6.7-8.2) g/dL Albumin 2.2 L (3.2-5.5) g/dL Globulin 1.9 L (2.1-4.2) g/dL Albumin/Globulin Ratio 1.2 (1.0-2.2) 09/05/17 09/05/17 09/05/17 Range/Units 12:30 12:25 12:25 WBC (4.8-10.8) x10^3/uL RBC (4.20-5.40) 10^6/uL Hgb (12.0-16.0) g/dL Hct (37.0-47.0) % MCV (81.0-99.0) fL MCH (27.0-31.0) pg MCHC (32.0-36.0) g/dL RDW (12.0-15.0) % Plt Count (130-450) 10^3/uL MPV (7.9-10.8) fL Neut # Lymph # Rhea # Eos # Baso # Absolute Nucleated RBC Total Counted Band Neuts % (Manual) (0 - 10) % Abnorm Lymph % (Manual) % Metamyelocytes % ( - 0) % Nucleated RBC % Neutrophils # (Manual) (1.5-6.6) 10^3/uL Lymphocytes # (Manual) (1.5-3.5) 10^3/uL Monocytes # (Manual) (0.0-1.0) 10^3/uL Eosinophils # (Manual) (0-0.7) 10^3/uL Basophils # (Manual) (0-0.1) 10^3/uL Nucleated RBCs % Differential Comment Manual Slide Review WBC Morphology (NORMAL) Platelet Estimate (NORMAL) Platelet Morphology (NORMAL) RBC Morph Micro Appear (NORMAL) Bld Gas Analysis Time 1238 Sample Site RIGHT RADIAL ABG pH 7.29 L (7.35-7.45) ABG pCO2 37 (34-45) mmHg ABG pO2 110 H (80-100) mmHg ABG HCO3 17.7 L (22.0-26.0) mmol/L ABG Total CO2 18.8 L (21.0-29.0) MMOL/L ABG O2 Saturation 98 (94-98) % ABG Oximetry Spot Check 99 % ABG Base Excess -8.2 L (-2.0-3.0) mmol/L Angel Luis Test NOT APPLICABLE Respiration Rate 20 b/min O2 Delivery Device VENTILATOR Vent Mode ACCESSED/CONTROL FiO2 40.00 Tidal Volume 450 mL PEEP 5 cmH2O Pressure Support Vent cmH2O Sodium (135-145) mmol/L Potassium 4.9 (3.5-5.0) mmol/L Chloride (101-111) mmol/L Carbon Dioxide (21-32) mmol/L Anion Gap (6-13) BUN (6-20) mg/dL Creatinine (0.4-1.0) mg/dL Estimated GFR (MDRD) (>89) Glucose (70-100) mg/dL POC Whole Bld Glucose (70 - 100) mg/dL Calcium (8.5-10.3) mg/dL Phosphorus (2.5-4.6) mg/dL Magnesium (1.7-2.8) mg/dL Total Bilirubin (0.2-1.0) mg/dL AST (10-42) IU/L ALT (10-60) IU/L Alkaline Phosphatase (42-121) IU/L Troponin I 0.09 (<0.49) ng/mL Total Protein (6.7-8.2) g/dL Albumin (3.2-5.5) g/dL Globulin (2.1-4.2) g/dL Albumin/Globulin Ratio (1.0-2.2) - Current Medications Current Medications: Current Medications Generic Name Dose Route Start Last Admin Trade Name Freq PRN Reason Stop Dose Admin Hydromorphone HCl 0.5 mg 09/05/17 20:07 09/06/17 08:43 Dilaudid Inj Syringe IVP 0.5 mg Q1H PRN Administration PAIN Norepinephrine Bitartrate 8 mg 250 mls @ 15 mls/hr 09/04/17 12:00 09/05/17 20 :55 / Dextrose IV Not Given .[id number] [facility]NA Protocol 8 MCG/MIN Cefepime HCl 1 gm/ Sodium 100 mls @ 200 mls/hr 09/04/17 19:00 09/06/17 05:40 Chloride IV 09/14/17 23:55 Infused TID [facility]NA Infusion Propofol 100 mls @ 3.69 mls/hr 09/04/17 19:00 09/06/17 08:15 Diprivan IV 10 mcg/kg/min .[id number] AMNA 3.69 mls/hr Protocol Titration 10 MCG/KG/MIN Acetaminophen 100 mls @ 400 mls/hr 09/05/17 21:00 09/06/17 04:45 Ofirmev IV Infused Q6H [facility]NA Infusion Potassium Chloride/Sodium Chloride 1,000 mls @ 125 mls/hr 09/05/17 20:00 04/16 08:00 Normal Saline 0.9% W/20 Meq Kcl IV 125 mls/hr .Q8H [facility]NA Infusion Dextrose/Lactated Ringer's 1,000 mls @ 125 mls/hr 09/06/17 08:00 09/06/17 08: 00 D5lr IV 125 mls/hr .Q8H AMNA Administration Multi-Ingred Cream/Lotion/Oil/Oint 1 applic 09/04/17 16:00 09/05/17 21:11 Lubrifresh Pm Ophth Oint EACHEYE Not Given QPM AMNA Pantoprazole Sodium 40 mg 09/04/17 21:00 09/05/17 21:11 Protonix IVP 40 mg BID AMNA Administration Sodium Bicarbonate 50 meq 09/06/17 06:05 09/06/17 06:34 IVP 09/06/17 10:00 50 meq ONCE AMNA Administration Sodium Chloride 10 ml 09/05/17 22:00 09/06/17 05:10 Normal Saline Flush 0.9% IVP 10 ml Q8HR AMNA Administration Sodium Chloride 10 ml 09/05/17 19:08 09/06/17 08:43 Normal Saline Flush 0.9% IVP 10 ml PRN PRN Administration NEEDED PER PROVIDER ORDERS - Physical Exam Wound/Incisions: positive: Dressing dry and intact General Appearance: positive: Other (Intubated and sedated.) Neck: positive: Trachea midline Respiratory: positive: Breath sounds nml (But intubated - not breathing on her own.) Cardiovascular: positive: Tachycardia, Systolic murmur (Loud.) Abdomen: positive: Abnml bowel sounds (Essntially none.), Other (Doughy.) Skin: positive: Color nml Extremities: positive: Pedal edema Neurologic/Psychiatric: positive: Other (Intubated and sedated.) Impression/Plan - Problem List Problem List: D2 s/p emergent exploratory laparotomy with sigmoidectomy (perforated), resection of terminal ileum (necrotic) with cecum and appendix, bowel left discontinuous, abdominal washout, placement of 19 Fr Estevan drain, and abdomen left open with a plan for relook operation in 24 hours - in other words a damage control operation D1 s/p relook operation with resection of additional ileum (necrotic) and some right colon (compromised) with ileocolostomy ([id number]), end descending colostomy, abdominal washout and closure of abdomen (skin left open) 1) FEN Patient receiving too much in fluids at 250 mL/hour will drop back to 125 mL/hour. Tomorrow will give albumin per Fja-Hf-Fa-Date recommendations. Electrolytes quite stable. Will supplement Magnesium. Patient making good urine. Will await until fluid shifts stop prior to feeding - expect a combination of trickle feeds as well as hyperalimentation. Bowel now is in continuity and as soon as there is bowel function will go full enteral. If hemoglobin goers below 8 will transfuse 2 units. 2) ID Continue Cefipime for 10 days. Patient is at high risk for infection of all types (intra-abdominal, urinary, pulmonary) and will follow. Fortunately patient is off all pressors. 3) DVT Continue TEDs and venadynes. No blood thinners now. 4) Pulmonary Hope to extubate today. Pulmonary toilet will be better with patient extubated. 5) Wound Change daily and as needed for drainage. Currently Iodophor and will transition after a few days.
[2017-09-06] MEDS: PANTOPRAZOLE 40 MG VIAL IVP SCH ×2 (09:38→20:36)
[2017-09-06] MEDS: CHLORHEXIDINE GLUCONATE 15 ML UDC PO SCH ×2 (09:38→20:36)
[2017-09-06 12:05] LABS: ABG ANALYSIS TIME 1151; ABG OXYGEN SATURATION 97 % (94-98); ABG PCO2 37 mmHg (34-45); ABG PH 7.35 (7.35-7.45); ABG PO2 90 mmHg (80-100); ABG TCO2 21.1 MMOL/L (21.0-29.0)
[2017-09-06 12:06] LABS: ABG MODE OF VENTILATION SIMV; ABG O2 DEVICE VENTILATOR; ABG SITE OF DRAW A-LINE
[2017-09-06 12:07] LABS: ABG PEAK END EXPIRATORY PRESSU 5 cmH2O; ABG PRESSURE SUPPORT VENT 10 cmH2O; ABG RESPIRATORY RATE 14 b/min
[2017-09-06] MEDS: hydrALAZINE INJ 20 MG/ML VIAL IVP SCH ×2 (13:12→21:35)
[2017-09-06] MEDS: MIDAZOLAM 2 MG/2 ML VIAL IVP PRN ×2 (14:34→17:11)
[2017-09-06] MEDS ORDERED: MIDAZOLAM DRIP 50 MG/100 ML BAG IV SCH (18:00)
[2017-09-06] MEDS: MIDAZOLAM DRIP 50 MG/100 ML BAG IV SCH (18:30)
--- NOTE | 2017-09-06 20:17 | PROVIDER PROGRESS NOTE ---
Assessment/Plan - Problem List (1) Perforated sigmoid colon Assessment/Plan: S/P repeat lap Continue plan as per surgeon. (2) S/P laparotomy Assessment/Plan: As above (3) Anasarca Assessment/Plan: Likely from several days of parenteral hydration. Will minimize iv saline, as tpn started. (4) Septic shock Assessment/Plan: Resolved. - Current Meds Current Meds: Current Medications Generic Name Dose Route Start Last Admin Trade Name Freq PRN Reason Stop Dose Admin Chlorhexidine Gluconate 15 ml 09/06/17 09:00 09/06/17 09:38 Peridex PO 15 ml BID AMNA Administration Hydralazine HCl 10 mg 09/06/17 13:00 09/06/17 13:12 Apresoline Inj IVP 10 mg BID AMNA Administration Hydromorphone HCl 1 mg 09/06/17 12:40 09/06/17 18:39 Dilaudid Inj Syringe IVP 1 mg Q1H PRN Administration PAIN Cefepime HCl 1 gm/ Sodium 100 mls @ 200 mls/hr 09/04/17 19:00 09/06/17 14:30 Chloride IV 09/14/17 23:55 Infused TID AMNA Infusion Propofol 100 mls @ 3.69 mls/hr 09/04/17 19:00 09/06/17 09:11 Diprivan IV Infused .Q27H7M AMNA Titration Protocol 10 MCG/KG/MIN Acetaminophen 100 mls @ 400 mls/hr 09/05/17 21:00 09/06/17 15:15 Ofirmev IV Infused Q6H AMNA Infusion Dextrose/Lactated Ringer's 1,000 mls @ 125 mls/hr 09/06/17 08:00 09/06/17 18: 00 D5lr IV 125 mls/hr .Q8H AMNA Infusion Midazolam HCl 50 mg in 100 mls @ 4.92 mls/hr 09/06/17 18:28 09/06/17 18:30 Versed Drip IV 0.04 mg/kg/hr .[id number] AMNA 4.92 mls/hr 0.04 MG/KG/HR Administration Midazolam HCl 2 mg 09/05/17 20:05 09/06/17 17:11 Versed IVP 2 mg PRN PRN Administration Agitation Pantoprazole Sodium 40 mg 09/04/17 21:00 09/06/17 09:38 Protonix IVP 40 mg BID AMNA Administration Sodium Chloride 10 ml 09/05/17 22:00 09/06/17 14:14 Normal Saline Flush 0.9% IVP 10 ml Q8HR AMNA Administration Sodium Chloride 10 ml 09/05/17 19:08 09/06/17 17:11 Normal Saline Flush 0.9% IVP 10 ml PRN PRN Administration NEEDED PER PROVIDER ORDERS - Lab Result Fish Bone Diagrams: 09/09/17 03:35 09/09/17 03:35 - Additional Planning My Orders: My Active Orders 09/06/17 Chest [US] Routine Wound Consult MAC [MAC] Routine 09/06/17 07:55 Oral Care - Nursing [RC] BID 09/06/17 09:00 Chlorhexidine [Peridex] 15 ml PO BID 09/06/17 09:49 Sodium Chloride [Normal Saline] 3 ml INH Q3H PRN 09/06/17 10:21 Initial Ventilator Settings [RC] .ONCE Ventilator Bundle Oral Care [RC] Q2H Ventilator Bundle [RC] Q8H Ventilator Care - ICU [RC] Q4HR 09/06/17 12:40 HYDROmorphone INJ SYRINGE [Dilaudid Inj Syringe] 1 mg IVP Q1H PRN 09/06/17 13:00 hydrALAZINE INJ [Apresoline Inj] 10 mg IVP BID 09/06/17 14:52 Chest 1 View [XR] Routine 09/06/17 18:28 Midazolam Drip [Versed Drip] 50 mg in 100 ml IV 0.04 mg/kg/hr Subjective - Subjective Patient Reports: Other (Appears comfortable, sedated, on ventilator.) Nursing Reports: Other (Intubated and sedated) Objective Vital Signs: Vital Signs - 24 hr 09/05/17 09/05/17 09/05/17 20:58 22:00 22:39 Temperature 37.0 C Heart Rate 110 H Heart Rate [ 108 H 111 H Monitoring electrodes] Respiratory 20 20 Rate Blood Pressure Blood Pressure 150/93 H 144/92 H [Right Brachial artery] Blood Pressure 147/76 H 130/75 [Right Radial artery] O2 Saturation 99 98 09/05/17 09/06/17 09/06/17 23:00 00:00 01:00 Temperature 36.8 C Heart Rate Heart Rate [ 111 H 112 H 111 H Monitoring electrodes] Respiratory 20 20 20 Rate Blood Pressure Blood Pressure 143/90 H 142/82 H 137/82 H [Right Brachial artery] Blood Pressure 108/63 109/64 130/76 [Right Radial artery] O2 Saturation 98 98 98 09/06/17 09/06/17 09/06/17 01:35 02:00 03:00 Temperature Heart Rate 111 H Heart Rate [ 109 H 108 H Monitoring electrodes] Respiratory 20 20 Rate Blood Pressure Blood Pressure 151/99 H 147/91 H [Right Brachial artery] Blood Pressure 156/83 H 132/76 H [Right Radial artery] O2 Saturation 98 98 09/06/17 09/06/17 09/06/17 04:00 05:00 05:46 Temperature 36.9 C Heart Rate 103 H Heart Rate [ 106 H 104 H Monitoring electrodes] Respiratory 20 20 Rate Blood Pressure Blood Pressure 139/78 H 154/95 H [Right Brachial artery] Blood Pressure 156/95 H 136/73 H [Right Radial artery] O2 Saturation 98 98 09/06/17 09/06/17 09/06/17 05:47 06:00 07:00 Temperature Heart Rate 104 H Heart Rate [ 111 H 108 H Monitoring electrodes] Respiratory 16 16 Rate Blood Pressure Blood Pressure 149/83 H 160/101 H [Right Brachial artery] Blood Pressure 119/64 161/85 H [Right Radial artery] O2 Saturation 96 96 09/06/17 09/06/17 09/06/17 07:59 08:16 09:00 Temperature 36.7 C 37.1 C Heart Rate 106 H Heart Rate [ 104 H 109 H Monitoring electrodes] Respiratory 13 20 Rate Blood Pressure Blood Pressure 162/92 H 156/104 H [Right Brachial artery] Blood Pressure 139/76 H 166/87 H [Right Radial artery] O2 Saturation 96 97 09/06/17 09/06/17 09/06/17 10:00 11:00 12:00 Temperature 37.0 C 36.7 C 36.7 C Heart Rate Heart Rate [ 110 H 111 H Monitoring electrodes] Respiratory 10 L 14 14 Rate Blood Pressure Blood Pressure 174/97 H 176/116 H 184/121 H [Right Brachial artery] Blood Pressure 165/85 H 181/97 H 179/95 H [Right Radial artery] O2 Saturation 96 97 97 09/06/17 09/06/17 09/06/17 13:00 13:12 13:15 Temperature 36.7 C Heart Rate Heart Rate [ 115 H 111 H Monitoring electrodes] Respiratory 18 Rate Blood Pressure 166/88 H Blood Pressure 228/140 H [Right Brachial artery] Blood Pressure 220/118 H 135/72 H [Right Radial artery] O2 Saturation 97 09/06/17 09/06/17 09/06/17 13:20 13:25 13:40 Temperature Heart Rate Heart Rate [ 113 H 113 H 112 H Monitoring electrodes] Respiratory Rate Blood Pressure Blood Pressure [Right Brachial artery] Blood Pressure 127/69 121/67 129/69 [Right Radial artery] O2 Saturation 09/06/17 09/06/17 09/06/17 13:55 13:59 14:10 Temperature 36.0 C L Heart Rate Heart Rate [ 112 H 114 H 119 H Monitoring electrodes] Respiratory 12 Rate Blood Pressure Blood Pressure 145/90 H [Right Brachial artery] Blood Pressure 132/71 H 149/80 H 148/75 H [Right Radial artery] O2 Saturation 95 09/06/17 09/06/17 09/06/17 14:47 14:59 16:00 Temperature 36.9 C 37.4 C Heart Rate 112 H Heart Rate [ 114 H 112 H Monitoring electrodes] Respiratory 13 14 Rate Blood Pressure Blood Pressure 145/90 H 148/94 H [Right Brachial artery] Blood Pressure 145/80 H 147/77 H [Right Radial artery] O2 Saturation 93 96 09/06/17 09/06/17 09/06/17 17:00 18:00 19:00 Temperature 37.1 C 98.7 C H 37.2 C Heart Rate Heart Rate [ 111 H 106 H 99 Monitoring electrodes] Respiratory 12 13 14 Rate Blood Pressure Blood Pressure 159/90 H 151/93 H 170/94 H [Right Brachial artery] Blood Pressure 132/71 H 157/84 H 152/94 H [Right Radial artery] O2 Saturation 98 97 95 09/06/17 19:49 Temperature Heart Rate 98 Heart Rate [ Monitoring electrodes] Respiratory Rate Blood Pressure Blood Pressure [Right Brachial artery] Blood Pressure [Right Radial artery] O2 Saturation Oxygen O2 Source Mechanical ventilator I&O (Last 24 Hrs): Intake and Output Totals x24h 09/04/17 09/05/17 09/06/17 23:59 23:59 23:59 Intake Total 6385.011 6837.157 3578.977 Output Total 790 2171 3727 Balance 5595.011 4666.157 -148.023 General: Other (Sedated) HEENT: Mucous membr. moist/pink Cardiovascular: Regular rate, Other (2/6 murmur at LUSB) Respiratory: No respiratory distress Abdomen: Soft, Other (Bandaged. Drainage tube has minimal clear pink drainage.) Extremities: No edema - Results Results: Laboratory Results WBC 9.4 x10^3/uL (4.8-10.8) 09/06/17 04:50 RBC 3.09 10^6/uL (4.20-5.40) L 09/06/17 04:50 Hgb 9.0 g/dL (12.0-16.0) L 09/06/17 04:50 Hct 27.6 % (37.0-47.0) L 09/06/17 04:50 MCV 89.1 fL (81.0-99.0) 09/06/17 04:50 MCH 28.9 pg (27.0-31.0) 09/06/17 04:50 MCHC 32.5 g/dL (32.0-36.0) 09/06/17 04:50 RDW 15.4 % (12.0-15.0) H 09/06/17 04:50 Plt Count 147 10^3/uL (130-450) 09/06/17 04:50 MPV 10.2 fL (7.9-10.8) 09/06/17 04:50 Neut # Not Reportable 09/06/17 04:50 Lymph # Not Reportable 09/06/17 04:50 Young # Not Reportable 09/06/17 04:50 Eos # Not Reportable 09/06/17 04:50 Baso # Not Reportable 09/06/17 04:50 Absolute Nucleated RBC Not Reportable 09/06/17 04:50 Total Counted 100 09/06/17 04:50 Band Neuts % (Manual) 28 % (0-10) H 09/06/17 04:50 Reactive Lymphs % (Man) 15 % 09/05/17 04:35 Abnorm Lymph % (Manual) 0 % 09/06/17 04:50 Metamyelocytes % 2 % (-0) H 09/05/17 19:33 Myelocytes % 1 % (-0) H 09/04/17 16:22 Nucleated RBC % Not Reportable 09/06/17 04:50 Neutrophils # (Manual) 7.0 10^3/uL (1.5-6.6) H 09/06/17 04:50 Lymphocytes # (Manual) 2.0 10^3/uL (1.5-3.5) 09/06/17 04:50 Monocytes # (Manual) 0.5 10^3/uL (0.0-1.0) 09/06/17 04:50 Eosinophils # (Manual) 0.0 10^3/uL (0-0.7) 09/06/17 04:50 Basophils # (Manual) 0.0 10^3/uL (0-0.1) 09/06/17 04:50 Nucleated RBCs 1 % 09/06/17 04:50 Differential Comment MANUAL DIFFERENTIAL 09/06/17 04:50 Manual Slide Review Indicated 09/05/17 19:33 WBC Morphology 1+ DOHLE BODIES (NORMAL) 2+ TOXIC GRANULATION (NORMAL) 09/05 19:33 WBC Morphology 1+ DOHLE BODIES (NORMAL) 2+ TOXIC GRANULATION (NORMAL) 09/05 19:33 Platelet Estimate NORMAL (130-450,000) (NORMAL) 09/06/17 04:50 Platelet Morphology NORMAL APPEARANCE (NORMAL) 09/05/17 19:33 RBC Morph Micro Appear NORMAL APPEARANCE (NORMAL) 09/06/17 04:50 PT 15.4 secs (9.9-12.6) H 09/04/17 05:45 INR 1.4 (0.8-1.2) H 09/04/17 05:45 Bld Gas Analysis Time 1151 09/06/17 11:51 Sample Site A-LINE 09/06/17 11:51 ABG pH 7.35 (7.35-7.45) 09/06/17 11:51 ABG pCO2 37 mmHg (34-45) 09/06/17 11:51 ABG pO2 90 mmHg (80-100) 09/06/17 11:51 ABG HCO3 20.0 mmol/L (22.0-26.0) L 09/06/17 11:51 ABG Total CO2 21.1 MMOL/L (21.0-29.0) 09/06/17 11:51 ABG O2 Saturation 97 % (94-98) 09/06/17 11:51 ABG Oximetry Spot Check 98 % 09/06/17 04:50 ABG Base Excess -5.0 mmol/L (-2.0-3.0) L 09/06/17 11:51 Angel Luis Test NOT APPLICABLE 09/06/17 11:51 Respiration Rate 14 b/min 09/06/17 11:51 O2 Delivery Device VENTILATOR 09/06/17 11:51 Vent Mode SIMV 09/06/17 11:51 FiO2 24.00 09/06/17 11:51 Tidal Volume 450 mL 09/06/17 11:51 PEEP 5 cmH2O 09/06/17 11:51 Pressure Support Vent 10 cmH2O 09/06/17 11:51 Sodium 138 mmol/L (135-145) 09/06/17 04:50 Potassium 4.7 mmol/L (3.5-5.0) 09/06/17 04:50 Chloride 113 mmol/L (101-111) H 09/06/17 04:50 Carbon Dioxide 17 mmol/L (21-32) L 09/06/17 04:50 Anion Gap 8.0 (6-13) 09/06/17 04:50 BUN 30 mg/dL (6-20) H 09/06/17 04:50 Creatinine 1.4 mg/dL (0.4-1.0) H 09/06/17 04:50 Estimated GFR (MDRD) 38 (>89) L 09/06/17 04:50 Glucose 64 mg/dL (70-100) L 09/06/17 04:50 POC Whole Bld Glucose 113 mg/dL (70 - 100) H 09/06/17 18:07 Glycated Hemoglobin 5.8 % (4.6-6.2) 09/04/17 05:45 Estim Average Glucose 120 (70-100) H 09/04/17 05:45 Lactic Acid 1.4 mmol/L (0.5-2.2) 09/05/17 04:35 Calcium 7.2 mg/dL (8.5-10.3) L 09/06/17 04:50 Ionized Calcium NO 09/03/17 21:48 Phosphorus 3.8 mg/dL (2.5-4.6) 09/06/17 04:50 Magnesium 1.7 mg/dL (1.7-2.8) 09/06/17 04:50 Total Bilirubin 1.0 mg/dL (0.2-1.0) 09/06/17 04:50 AST 138 IU/L (10-42) H 09/06/17 04:50 ALT 89 IU/L (10-60) H 09/06/17 04:50 Alkaline Phosphatase 54 IU/L (42-121) 09/06/17 04:50 Troponin I 0.09 ng/mL (<0.49) 09/05/17 12:25 Total Protein 4.3 g/dL (6.7-8.2) L 09/06/17 04:50 Albumin 2.3 g/dL (3.2-5.5) L 09/06/17 04:50 Globulin 2.0 g/dL (2.1-4.2) L 09/06/17 04:50 Albumin/Globulin Ratio 1.1 (1.0-2.2) 09/06/17 04:50 Lipase 13 U/L (22-51) L 09/03/17 16:07 Urine Color YELLOW 09/03/17 22:19 Urine Clarity CLEAR (CLEAR) 09/03/17 22:19 Urine pH 5.5 PH (5.0-7.5) 09/03/17 22:19 Ur Specific [place] >=1.030 (1.002-1.030) H 09/03/17 22:19 Urine Protein 30 mg/dL (NEGATIVE) H 09/03/17 22:19 Urine Glucose (UA) 250 mg/dL (NEGATIVE) H 09/03/17 22:19 Urine Ketones NEGATIVE mg/dL (NEGATIVE) 09/03/17 22:19 Urine Occult Blood NEGATIVE (NEGATIVE) 09/03/17 22:19 Urine Nitrite NEGATIVE (NEGATIVE) 09/03/17 22:19 Urine Bilirubin NEGATIVE (NEGATIVE) 09/03/17 22:19 Urine Urobilinogen 0.2 (NORMAL) E.U./dL (NORMAL) 09/03/17 22:19 Ur Leukocyte Esterase NEGATIVE (NEGATIVE) 09/03/17 22:19 Urine RBC None Seen /HPF (0-5) 09/03/17 22:19 Urine WBC 0-3 /HPF (0-5) 09/03/17 22:19 Ur Squamous Epith Cells FEW Squamous (<= Few) 09/03/17 22:19 Urine Bacteria None Seen /HPF (None Seen) 09/03/17 22:19 Urine Casts >50 Hyaline Casts /LPF0-2 Fine Granular /LPF 09/03/17 22:19 Urine Casts >50 Hyaline Casts /LPF0-2 Fine Granular /LPF 09/03/17 22:19 Ur Microscopic Review INDICATED 09/03/17 22:19 Urine Culture Comments NOT INDICATED 09/03/17 22:19
[2017-09-07] MEDS: DEXTROSE 5%-LACTATED RINGERS 1,000 ML IV SCH ×2 (00:07→10:26)
[2017-09-07] MEDS ORDERED: MAGNESIUM SULFATE 2 GM in SODIUM CHLORIDE 0.9% 50 ML IV SCH (00:15)
[2017-09-07] MEDS: HYDROmorphone 0.5 MG/0.5 ML SYRINGE IVP PRN ×4 (00:50→06:12)
[2017-09-07] MEDS ORDERED: MAGNESIUM SULFATE 2 GRAM 2 GM/50 ML BAG IV ONE (00:54)
[2017-09-07] MEDS: ACETAMINOPHEN 1,000 MG/100 ML 100 ML IV SCH ×4 (03:08→21:18)
[2017-09-07 06:06] LABS: MEAN CORPUSCULAR VOLUME 88.4 fL (81.0-99.0)
[2017-09-07] MEDS: CEFEPIME 1 GM in SODIUM CHLORIDE 0.9% MINIBAG 100 ML IV SCH ×3 (06:12→21:33)
[2017-09-07] MEDS: SODIUM CHLORIDE FLUSH 0.9% 10 ML SYRINGE IVP SCH ×3 (06:12→20:49)
[2017-09-07 06:15] LABS: BASOPHILS % (AUTO) 0.2 %; EOSINOPHILS # (AUTO) 0.4 10^3/uL (0.0-0.7); EOSINOPHILS % (AUTO) 4.1 %; HGB - HEMOGLOBIN 8.5 g/dL (12.0-16.0); LYMPHOCYTES # (AUTO) 1.4 10^3/uL (1.5-3.5); LYMPHOCYTES % (AUTO) 15.3 %; MEAN CORPUSCULAR HGB CONC 32.8 g/dL (32.0-36.0); MEAN PLATELET VOLUME 9.9 fL (7.9-10.8); MONOCYTES # (AUTO) 0.1 10^3/uL (0.0-1.0); MONOCYTES % (AUTO) 1.6 %; NEUTROPHILS # (AUTO) 7.2 10^3/uL (1.5-6.6); NEUTROPHILS % (AUTO) 78.8 %; NUCLEATED RED BLOOD CELLS AUTO 0.2 /100WBC; RED BLOOD COUNT 2.94 10^6/uL (4.20-5.40); RED CELL DISTRIBUTION WIDTH 15.6 % (12.0-15.0); UNCORRECTED WHITE BLOOD COUNT 9.1 x10^3/uL; WHITE BLOOD COUNT 9.1 x10^3/uL (4.8-10.8)
[2017-09-07 06:16] LABS: ALBUMIN/GLOBULIN RATIO 0.8 (1.0-2.2); BILIRUBIN,TOTAL 0.8 mg/dL (0.2-1.0); CALCIUM 7.9 mg/dL (8.5-10.3); CREATININE 0.9 mg/dL (0.4-1.0); MAGNESIUM 2.2 mg/dL (1.7-2.8); POTASSIUM 3.6 mmol/L (3.5-5.0); TOTAL PROTEIN 4.7 g/dL (6.7-8.2)
[2017-09-07 06:23] LABS: ABG BASE EXCESS -3.5 mmol/L (-2.0-3.0); ABG HCO3 21.4 mmol/L (22.0-26.0); ABG MODE OF VENTILATION SIMV; ABG OXYGEN SATURATION 97 % (94-98); ABG PCO2 38 mmHg (34-45); ABG PEAK END EXPIRATORY PRESSU 5 cmH2O; ABG PH 7.37 (7.35-7.45); ABG PO2 90 mmHg (80-100); ABG PRESSURE SUPPORT VENT 10 cmH2O; ABG RESPIRATORY RATE 14 b/min; ABG SITE OF DRAW A-LINE; ABG TCO2 22.6 MMOL/L (21.0-29.0)
--- NOTE | 2017-09-07 07:06 | XRAY Preliminary Report ---
Exam: XR CHEST 1 VIEW IMPRESSION: 1. Tubes and lines in similar position. 2. Vascular congestion without significant change. 3. Bibasilar consolidation/atelectasis and bilateral pleural effusions, stable. [facility] SITE ID: [id number]
--- NOTE | 2017-09-07 07:08 | XRAY Report ---
EXAM: CHEST RADIOGRAPHY EXAM DATE: 09/07/2017 06:39 AM. CLINICAL HISTORY: Intubated. COMPARISON: 09/04/2017. 09/06/2017. TECHNIQUE: 1 view. FINDINGS: Lungs/Pleura: Vascular congestion. Bibasilar opacities. Pleural effusions. No pneumothorax. Mediastinum: Heart size and mediastinal contour are stable. Other: ET tube is again seen with the tip 5.6 cm from the birdie. Orogastric tube is again seen uncha nged in position with the tip in the proximal stomach. Right IJ catheter is stable. IMPRESSION: 1. Tubes and lines in similar position. 2. Vascular congestion without significant change. 3. Bibasilar consolidation/atelectasis and bilateral pleural effusions, stable. [facility] Referring Provider Line: [phone] SITE ID: [id number]
[2017-09-07] MEDS: SODIUM CHLORIDE FLUSH 0.9% 10 ML SYRINGE IVP PRN ×6 (07:34→21:12)
[2017-09-07] MEDS: hydrALAZINE INJ 20 MG/ML VIAL IVP SCH ×3 (08:40→23:29)
[2017-09-07] MEDS: PANTOPRAZOLE 40 MG VIAL IVP SCH ×2 (08:46→21:16)
[2017-09-07] MEDS: CHLORHEXIDINE GLUCONATE 15 ML UDC PO SCH ×2 (09:08→21:18)
[2017-09-07] MEDS: HYDROmorphone 1 MG/ML SYRINGE IVP PRN ×8 (10:27→23:13)
--- NOTE | 2017-09-07 13:34 | PROVIDER PROGRESS NOTE ---
Subjective - General Admit Date: 09/03/17 Procedure Date: 09/05/17 Post Op Days: 2 Procedure Performed: Relook with ileal resection, colon resection, ileocolostomy , end colostomy - Review of Systems Wound/Incisions: positive: Dressing dry and intact Drain Type: 19 Fr Estevan Drain Output Description: Serous Approximate mls Output: 235 General: positive: Other (Patient intubated and sedated.) - Other Other Information/Narrative: Moving more and withdraws from pain but not purposeful yet. Objective - Patient Data Reviewed Vital Signs: Yes Vital Signs: Vital Signs x48h Temp Pulse Pulse Resp BP BP BP 09/07/17 13:00 100 14 160/96 H 182/101 H 09/07/17 11:57 36.9 C 105 H 14 158/91 H 173/92 H 09/07/17 11:00 100 14 139/87 H 160/84 H 09/07/17 10:00 104 H 14 193/104 H 190/93 H 09/07/17 09:00 92 13 146/83 H 152/77 H 09/07/17 08:40 168/101 H 09/07/17 08:00 36.3 C L 86 14 162/97 H 171/90 H 09/07/17 07:30 89 09/07/17 06:53 87 14 149/89 H 153/83 H 09/07/17 06:22 86 09/07/17 06:00 86 14 157/96 H 153/78 H 09/07/17 05:31 152/97 H Pulse Ox 09/07/17 13:00 96 09/07/17 11:57 95 09/07/17 11:00 95 09/07/17 10:00 94 09/07/17 09:00 97 09/07/17 08:40 09/07/17 08:00 98 09/07/17 07:30 09/07/17 06:53 97 09/07/17 06:22 09/07/17 06:00 97 09/07/17 05:31 Intake & Output: Intake and Output Totals x24h 09/05/17 09/06/17 09/07/17 23:59 23:59 23:59 Intake Total 6837.157 3783.977 2427.785 Output Total 2171 4192 1605 Balance 4666.157 -408.023 822.785 - Lab Results Lab Results: 09/07/17 05:20 09/07/17 05:20 Other Lab Results: Lab Results x24hrs 09/07/17 09/07/17 09/07/17 Range/Units 12:10 06:10 05:20 WBC (4.8-10.8) x10^3/uL RBC (4.20-5.40) 10^6/uL Hgb (12.0-16.0) g/dL Hct (37.0-47.0) % MCV (81.0-99.0) fL MCH (27.0-31.0) pg MCHC (32.0-36.0) g/dL RDW (12.0-15.0) % Plt Count (130-450) 10^3/uL MPV (7.9-10.8) fL Neut # (1.5-6.6) 10^3/uL Lymph # (1.5-3.5) 10^3/uL [place] # (0.0-1.0) 10^3/uL Eos # (0.0-0.7) 10^3/uL Baso # (0.0-0.1) 10^3/uL Absolute Nucleated RBC x10^3/uL Nucleated RBC % /100WBC Bld Gas Analysis Time 0614 Sample Site A-LINE ABG pH 7.37 (7.35-7.45) ABG pCO2 38 (34-45) mmHg ABG pO2 90 (80-100) mmHg ABG HCO3 21.4 L (22.0-26.0) mmol/L ABG Total CO2 22.6 (21.0-29.0) MMOL/L ABG O2 Saturation 97 (94-98) % ABG Base Excess -3.5 L (-2.0-3.0) mmol/L Angel Luis Test NOT APPLICABLE Respiration Rate 14 b/min Vent Mode SIMV FiO2 24.00 Tidal Volume 450 mL PEEP 5 cmH2O Pressure Support Vent 10 cmH2O Sodium 142 (135-145) mmol/L Potassium 3.6 (3.5-5.0) mmol/L Chloride 114 H (101-111) mmol/L Carbon Dioxide 22 (21-32) mmol/L Anion Gap 6.0 (6-13) BUN 22 H (6-20) mg/dL Creatinine 0.9 (0.4-1.0) mg/dL Estimated GFR (MDRD) 63 L (>89) Glucose 132 H (70-100) mg/dL POC Whole Bld Glucose 132 H (70 - 100) mg/dL Calcium 7.9 L (8.5-10.3) mg/dL Phosphorus 2.0 L (2.5-4.6) mg/dL Magnesium 2.2 (1.7-2.8) mg/dL Total Bilirubin 0.8 (0.2-1.0) mg/dL AST 130 H (10-42) IU/L ALT 121 H (10-60) IU/L Alkaline Phosphatase 77 (42-121) IU/L Total Protein 4.7 L (6.7-8.2) g/dL Albumin 2.1 L (3.2-5.5) g/dL Globulin 2.6 (2.1-4.2) g/dL Albumin/Globulin Ratio 0.8 L (1.0-2.2) 09/07/17 09/07/17 09/06/17 Range/Units 05:20 00:23 18:07 WBC 9.1 (4.8-10.8) x10^3/uL RBC 2.94 L (4.20-5.40) 10^6/uL Hgb 8.5 L (12.0-16.0) g/dL Hct 26.0 L (37.0-47.0) % MCV 88.4 (81.0-99.0) fL MCH 29.0 (27.0-31.0) pg MCHC 32.8 (32.0-36.0) g/dL RDW 15.6 H (12.0-15.0) % Plt Count 146 (130-450) 10^3/uL MPV 9.9 (7.9-10.8) fL Neut # 7.2 H (1.5-6.6) 10^3/uL Lymph # 1.4 L (1.5-3.5) 10^3/uL [place] # 0.1 (0.0-1.0) 10^3/uL Eos # 0.4 (0.0-0.7) 10^3/uL Baso # 0.0 (0.0-0.1) 10^3/uL Absolute Nucleated RBC 0.02 x10^3/uL Nucleated RBC % 0.2 /100WBC Bld Gas Analysis Time Sample Site ABG pH (7.35-7.45) ABG pCO2 (34-45) mmHg ABG pO2 (80-100) mmHg ABG HCO3 (22.0-26.0) mmol/L ABG Total CO2 (21.0-29.0) MMOL/L ABG O2 Saturation (94-98) % ABG Base Excess (-2.0-3.0) mmol/L Angel Luis Test Respiration Rate b/min Vent Mode FiO2 Tidal Volume mL PEEP cmH2O Pressure Support Vent cmH2O Sodium (135-145) mmol/L Potassium (3.5-5.0) mmol/L Chloride (101-111) mmol/L Carbon Dioxide (21-32) mmol/L Anion Gap (6-13) BUN (6-20) mg/dL Creatinine (0.4-1.0) mg/dL Estimated GFR (MDRD) (>89) Glucose (70-100) mg/dL POC Whole Bld Glucose 117 H 113 H (70 - 100) mg/dL Calcium (8.5-10.3) mg/dL Phosphorus (2.5-4.6) mg/dL Magnesium (1.7-2.8) mg/dL Total Bilirubin (0.2-1.0) mg/dL AST (10-42) IU/L ALT (10-60) IU/L Alkaline Phosphatase (42-121) IU/L Total Protein (6.7-8.2) g/dL Albumin (3.2-5.5) g/dL Globulin (2.1-4.2) g/dL Albumin/Globulin Ratio (1.0-2.2) - Imaging Results Radiology Imaging: positive: Final report received - Current Medications Current Medications: Current Medications Generic Name Dose Route Start Last Admin Trade Name Freq PRN Reason Stop Dose Admin Chlorhexidine Gluconate 15 ml 09/06/17 09:00 09/07/17 09:08 Peridex PO 15 ml BID AMNA Administration Hydralazine HCl 10 mg 09/06/17 13:00 09/07/17 08:40 Apresoline Inj IVP 10 mg BID AMNA Administration Hydromorphone HCl 1 mg 09/07/17 08:08 09/07/17 12:32 Dilaudid Inj Syringe IVP 1 mg Q1H PRN Administration PAIN Cefepime HCl 1 gm/ Sodium 100 mls @ 200 mls/hr 09/04/17 19:00 09/07/17 06:50 Chloride IV 09/14/17 23:55 Infused TID AMNA Infusion Propofol 100 mls @ 3.69 mls/hr 09/04/17 19:00 09/06/17 09:11 Diprivan IV Infused .Q27H7M AMNA Titration Protocol 10 MCG/KG/MIN Acetaminophen 100 mls @ 400 mls/hr 09/05/17 21:00 09/07/17 09:11 Ofirmev IV Infused Q6H AMNA Infusion Dextrose/Lactated Ringer's 1,000 mls @ 125 mls/hr 09/06/17 08:00 09/07/17 12: 29 D5lr IV 125 mls/hr .Q8H AMNA Infusion Midazolam HCl 50 mg in 100 mls @ 4.92 mls/hr 09/06/17 18:28 09/07/17 07:36 Versed Drip IV 0 mg/kg/hr .[id number] AMNA 0 mls/hr 0.04 MG/KG/HR Infusion Midazolam HCl 2 mg 09/05/17 20:05 09/06/17 17:11 Versed IVP 2 mg PRN PRN Administration Agitation Pantoprazole Sodium 40 mg 09/04/17 21:00 09/07/17 08:46 Protonix IVP 40 mg BID AMNA Administration Sodium Chloride 10 ml 09/05/17 22:00 09/07/17 06:12 Normal Saline Flush 0.9% IVP 10 ml Q8HR AMNA Administration Sodium Chloride 10 ml 09/05/17 19:08 09/07/17 08:47 Normal Saline Flush 0.9% IVP 20 ml PRN PRN Administration NEEDED PER PROVIDER ORDERS - Physical Exam Wound/Incisions: positive: Dressing dry and intact General Appearance: positive: Other (Intubated and sedated. More responsive but not to the point where we can extubate.) Neck: positive: Thyroid nml Respiratory: positive: Breath sounds nml (Anterolaterally. Slightly diminished. ) Cardiovascular: positive: Regular rate & rhythm, Systolic murmur Abdomen: positive: Non-tender, No distention, Abnml bowel sounds (Decreased.), Other (Ostomy pink. No production yet.) Extremities: positive: Nml appearance (Edema slightly better.) Neurologic/Psychiatric: positive: Other (Intubated and sedated.) Impression/Plan - Problem List Problem List: D3 s/p emergent exploratory laparotomy with sigmoidectomy (perforated), resection of terminal ileum (necrotic) with cecum and appendix, bowel left discontinuous, abdominal washout, placement of 19 Fr Estevan drain, and abdomen left open with a plan for relook operation in 24 hours - in other words a damage control operation D2 s/p relook operation with resection of additional ileum (necrotic) and some right colon (compromised) with ileocolostomy ([id number]), end descending colostomy, abdominal washout and closure of abdomen (skin left open) 1) FEN Patient receiving IVF at 125 mL/hour. Giving albumin per Now-Up-To- Date recommendations. Electrolytes quite stable. Patient making good urine. Will start hyperalimentation and decreased IVF appropriately. Bowel now is in continuity and as soon as there is bowel function will go full enteral. If hemoglobin goers below 8 will transfuse 2 units. 2) ID Continue Cefipime for 10 days (D3/10). Patient is at high risk for infection of all types (intra-abdominal, urinary, pulmonary) and will follow. Fortunately patient is off all pressors. 3) DVT Continue TEDs and venadynes. No blood thinners now. 4) Pulmonary Had hoped to extubate today but patient not awake enough yet. Pulmonary toilet will be better with patient extubated. 5) Wound Change daily and as needed for drainage. Currently Iodophor and will transition after a few days. Spoke with brother in law and sister about operation and expected postoperative course. Explained that I would try and get her home for [place].
[2017-09-07] MEDS ORDERED: ALBUMIN 25% 12.5 GM/50 ML VIAL IV STA ×2 (13:40→13:42)
[2017-09-07] MEDS: ALBUMIN 25% 12.5 GM/50 ML VIAL IV SCH ×2 (14:17→20:08)
[2017-09-07] MEDS ORDERED: DEXTROSE 5%-LACTATED RINGERS 1,000 ML IV SCH (15:34)
[2017-09-07] MEDS ORDERED: MIN OIL/DIMETHICON/COCONUT OIL 92 GM TUBE TOP ONE (16:57)
[2017-09-07] MEDS ORDERED: SODIUM CHLORIDE 0.9% 500 ML IV ONE (17:08)
[2017-09-07] MEDS ORDERED: MIN OIL/DIMETHICON/COCONUT OIL 92 GM TUBE TOP PRN (18:36)
[2017-09-07] MEDS: FAT EMULSION 20% 250 ML IV SCH (19:26)
[2017-09-07] MEDS ORDERED: SODIUM CHLORIDE 0.9% 250 ML IV ONE (19:32)
[2017-09-07] MEDS: TPN (CLINIMIX E 5/15) 2,000 ML with MULTIVITAMIN 10 ML IV SCH ×2 (19:40)
[2017-09-07] MEDS: MIDAZOLAM 2 MG/2 ML VIAL IVP PRN ×2 (19:40→22:28)
[2017-09-07] MEDS ORDERED: MIDAZOLAM DRIP 50 MG/100 ML BAG IV SCH (20:00)
[2017-09-07] MEDS: POTASSIUM PHOSPHATE IV SCH (20:02)
[2017-09-07] MEDS: [UNRECOGNIZED DRUG - OTHER] IV SCH (20:02)
[2017-09-07] MEDS: INSULIN REGULAR HUMAN IV SCH (20:02)
[2017-09-07] MEDS: MAGNESIUM SULFATE IV SCH (20:06)
[2017-09-07] MEDS: [UNRECOGNIZED DRUG - OTHER] IV SCH (20:06)
[2017-09-07] MEDS: TRACE ELEMENTS V IV SCH (20:06)
[2017-09-07] MEDS: MIDAZOLAM DRIP 50 MG/100 ML BAG IV SCH (20:51)
[2017-09-07] MEDS: PROPOFOL 1000 MG/100 ML 100 ML IV SCH (23:10)
[2017-09-08] MEDS: HYDROmorphone 1 MG/ML SYRINGE IVP PRN ×6 (00:18→08:14)
[2017-09-08] MEDS: KETOROLAC 30 MG/ML VIAL IVP PRN ×2 (00:25→19:35)
[2017-09-08 00:40] LABS: BILIRUBIN,URINE NEGATIVE (NEGATIVE)
[2017-09-08 00:55] LABS: UA CHARGE (STRIP ONLY) YES; UR CULTURE IF IND NOT INDICATED
[2017-09-08] MEDS: SODIUM CHLORIDE FLUSH 0.9% 10 ML SYRINGE IVP PRN ×9 (01:00→21:18)
[2017-09-08] MEDS: ACETAMINOPHEN 1,000 MG/100 ML 100 ML IV SCH ×4 (03:22→20:52)
[2017-09-08] MEDS ORDERED: SODIUM CHLORIDE 0.9% 250 ML IV ONE (03:41)
[2017-09-08] MEDS: SODIUM CHLORIDE FLUSH 0.9% 10 ML SYRINGE IVP SCH ×4 (03:55→22:19)
[2017-09-08] MEDS: ALBUMIN 25% 12.5 GM/50 ML VIAL IV SCH ×2 (04:01→09:33)
[2017-09-08] MEDS: CEFEPIME 1 GM in SODIUM CHLORIDE 0.9% MINIBAG 100 ML IV SCH ×3 (05:40→21:27)
[2017-09-08 05:42] LABS: RED BLOOD COUNT 2.76 10^6/uL (4.20-5.40); UNCORRECTED WHITE BLOOD COUNT 10.8 x10^3/uL; WHITE BLOOD COUNT 10.8 x10^3/uL (4.8-10.8)
[2017-09-08 05:48] LABS: BASOPHILS % (AUTO) 0.3 %; EOSINOPHILS % (AUTO) 2.2 %; HCT - HEMATOCRIT 24.2 % (37.0-47.0); LYMPHOCYTES % (AUTO) 20.5 %; MEAN CORPUSCULAR HEMOGLOBIN 28.9 pg (27.0-31.0); MEAN CORPUSCULAR HGB CONC 32.9 g/dL (32.0-36.0); MEAN CORPUSCULAR VOLUME 87.9 fL (81.0-99.0); MEAN PLATELET VOLUME 9.1 fL (7.9-10.8); MONOCYTES % (AUTO) 4.7 %; NEUTROPHILS % (AUTO) 72.3 %; RED CELL DISTRIBUTION WIDTH 15.8 % (12.0-15.0)
[2017-09-08 05:49] LABS: INR 1.2 (0.8-1.2); PT - PROTHROMBIN TIME 13.3 secs (9.9-12.6)
[2017-09-08 05:56] LABS: BILIRUBIN,TOTAL 0.6 mg/dL (0.2-1.0); CALCIUM 7.7 mg/dL (8.5-10.3); CREATININE 0.8 mg/dL (0.4-1.0); MAGNESIUM 1.8 mg/dL (1.7-2.8); PHOSPHORUS 2.8 mg/dL (2.5-4.6); POTASSIUM 3.3 mmol/L (3.5-5.0); TOTAL PROTEIN 5.1 g/dL (6.7-8.2)
[2017-09-08 06:17] LABS: BAND NEUTROPHILS % (MANUAL) 7 %; EOSINOPHILS % (MANUAL) 2 %; LYMPHOCYTES % (MANUAL) 16 %; NEUTROPHILS % (MANUAL) 73 %; PLATELET ESTIMATE, MANUAL NORMAL (130-450,000) (NORMAL); TOTAL CELLS COUNTED 100
[2017-09-08 06:18] LABS: NP AUTO DIFFERENTIAL? YES; NP MAN DIFFERENTIAL? NO
[2017-09-08] MEDS: hydrALAZINE INJ 20 MG/ML VIAL IVP SCH ×2 (08:19→16:41)
[2017-09-08 08:38] LABS: ABG BASE EXCESS -0.9 mmol/L (-2.0-3.0); ABG HCO3 22.5 mmol/L (22.0-26.0); ABG OXYGEN SATURATION 95 % (94-98); ABG PCO2 32 mmHg (34-45); ABG PH 7.46 (7.35-7.45); ABG PO2 75 mmHg (80-100); ABG SITE OF DRAW A-LINE; ABG TCO2 23.5 MMOL/L (21.0-29.0)
[2017-09-08 08:39] LABS: ABG MODE OF VENTILATION SIMV; ABG O2 DEVICE VENTILATOR; ABG PEAK END EXPIRATORY PRESSU 7 cmH2O; ABG PRESSURE SUPPORT VENT 10 cmH2O; ABG RESPIRATORY RATE 14 b/min; ABG SATURATION PULSE OXIMETRY% 95 %
--- NOTE | 2017-09-08 08:40 | XRAY Preliminary Report ---
Exam: XR CHEST 1 VIEW IMPRESSION: 1. ET tube terminates 4.6 and meter proximal to the birdie. Right IJ catheter terminates at the mid S VC region. 2. Mild bibasal opacity, probably atelectasis. [facility] SITE ID: [id number]
--- NOTE | 2017-09-08 08:43 | XRAY Report ---
EXAM: CHEST RADIOGRAPHY EXAM DATE: 09/06/2017 03:01 PM. CLINICAL HISTORY: F/U ET tube, SOB. COMPARISON: 09/05/2017. TECHNIQUE: 1 view. FINDINGS: Lungs/Pleura: ET tube terminates 4.6 cm proximal to the birdie. Right IJ catheter terminates at the m id SVC region. Mild bibasal opacity probably atelectasis. Small pleural effusions are not excluded. N o evidence of pneumothorax on this semiupright view. Mediastinum: Heart and mediastinum appear stable. Other: None. IMPRESSION: 1. ET tube terminates 4.6 and meter proximal to the birdie. Right IJ catheter terminates at the mid S VC region. 2. Mild bibasal opacity, probably atelectasis. MANISH Referring Provider Line: [phone] SITE ID: [id number]
[2017-09-08] MEDS ORDERED: POTASSIUM CHLOR 10 MEQ/100 ML 10 MEQ/100 ML BAG IV ONE ×2 (09:14→10:30)
[2017-09-08] MEDS: CHLORHEXIDINE GLUCONATE 15 ML UDC PO SCH ×2 (09:17→21:18)
[2017-09-08] MEDS: PANTOPRAZOLE 40 MG VIAL IVP SCH ×2 (09:25→20:52)
--- NOTE | 2017-09-08 09:45 | PROVIDER PROGRESS NOTE ---
Subjective - General Admit Date: 09/03/17 Procedure Date: 09/05/17 Post Op Days: 3 Procedure Performed: Relook with ileal resection, colon resection, ileocolostomy , end colostomy - Review of Systems Wound/Incisions: positive: Healing well, Other (minimal drainage) Drain Type: 19 Fr Estevan Drain Output Description: Serous, slightly cloudy Approximate mls Output: 800/24 hours General: positive: Other (Intubated, has been recieving intermittent versed and propofol gtt. Propofol gtt held this am. Patient has not been able to be extubated due to failure to follow commands. She is very aggitated this am.) Objective - Patient Data Reviewed Vital Signs: Yes Vital Signs: Vital Signs x48h Temp Pulse Pulse Resp BP BP BP 09/08/17 09:20 128 H 129/77 09/08/17 09:05 129 H 132/72 H 09/08/17 09:00 37.5 C 128 H 22 147/85 H 132/75 H 09/08/17 08:50 128 H 137/77 H 09/08/17 08:35 126 H 141/72 H 09/08/17 08:30 126 H 145/77 H 09/08/17 08:25 122 H 165/77 H 09/08/17 08:19 200/94 H 09/08/17 08:00 37.2 C 120 H 121 H 16 203/115 H 181/84 H 09/08/17 07:00 114 H 14 182/97 H 183/90 H 09/08/17 06:00 110 H 12 139/80 H 135/70 H 09/08/17 05:30 108 H 09/08/17 05:00 111 H 14 151/97 H 146/79 H 09/08/17 04:00 111 H 11 L 155/93 H 151/71 H 09/08/17 03:30 112 H 09/08/17 03:00 37.3 C 114 H 12 140/83 H 126/65 09/08/17 02:00 120 H 15 161/91 H 162/79 H 09/08/17 01:52 37.4 C Pulse Ox 09/08/17 09:20 09/08/17 09:05 09/08/17 09:00 09/08/17 08:50 09/08/17 08:35 09/08/17 08:30 09/08/17 08:25 09/08/17 08:19 09/08/17 08:00 95 09/08/17 07:00 96 09/08/17 06:00 98 09/08/17 05:30 09/08/17 05:00 98 09/08/17 04:00 97 09/08/17 03:30 09/08/17 03:00 97 09/08/17 02:00 97 09/08/17 01:52 Weight: Weight 09/06/17 09/07/17 09/08/17 23:59 23:59 23:59 Weight (kg) 61.5 kg 77 kg Intake & Output: Intake and Output Totals x24h 09/06/17 09/07/17 09/08/17 23:59 23:59 23:59 Intake Total 3783.977 3533.653 1523.975 Output Total 4192 2615 1550 Balance -408.023 918.653 -26.025 - Lab Results Lab Results: 09/08/17 05:20 09/08/17 05:20 Other Lab Results: Lab Results x24hrs 09/08/17 09/08/17 09/08/17 Range/Units 08:20 05:33 05:20 WBC (4.8-10.8) x10^3/uL RBC (4.20-5.40) 10^6/uL Hgb (12.0-16.0) g/dL Hct (37.0-47.0) % MCV (81.0-99.0) fL MCH (27.0-31.0) pg MCHC (32.0-36.0) g/dL RDW (12.0-15.0) % Plt Count (130-450) 10^3/uL MPV (7.9-10.8) fL Neut # Lymph # [place] # Eos # Baso # Absolute Nucleated RBC Total Counted Band Neuts % (Manual) (0 - 10) % Abnorm Lymph % (Manual) % Nucleated RBC % Neutrophils # (Manual) (1.5-6.6) 10^3/uL Lymphocytes # (Manual) (1.5-3.5) 10^3/uL Monocytes # (Manual) (0.0-1.0) 10^3/uL Eosinophils # (Manual) (0-0.7) 10^3/uL Basophils # (Manual) (0-0.1) 10^3/uL Nucleated RBCs % Differential Comment Platelet Estimate (NORMAL) RBC Morph Micro Appear (NORMAL) PT (9.9-12.6) secs INR (0.8-1.2) Bld Gas Analysis Time 0820 Sample Site A-LINE ABG pH 7.46 H (7.35-7.45) ABG pCO2 32 L (34-45) mmHg ABG pO2 75 L (80-100) mmHg ABG HCO3 22.5 (22.0-26.0) mmol/L ABG Total CO2 23.5 (21.0-29.0) MMOL/L ABG O2 Saturation 95 (94-98) % ABG Oximetry Spot Check 95 % ABG Base Excess -0.9 (-2.0-3.0) mmol/L Angel Luis Test NOT APPLICABLE Respiration Rate 14 b/min O2 Delivery Device VENTILATOR Vent Mode SIMV FiO2 30.00 Tidal Volume 450 mL PEEP 7 cmH2O Pressure Support Vent 10 cmH2O Sodium 143 (135-145) mmol/L Potassium 3.3 L (3.5-5.0) mmol/L Chloride 114 H (101-111) mmol/L Carbon Dioxide 23 (21-32) mmol/L Anion Gap 6.0 (6-13) BUN 20 (6-20) mg/dL Creatinine 0.8 (0.4-1.0) mg/dL Estimated GFR (MDRD) 72 L (>89) Glucose 132 H (70-100) mg/dL POC Whole Bld Glucose 116 H (70 - 100) mg/dL Calcium 7.7 L (8.5-10.3) mg/dL Phosphorus 2.8 (2.5-4.6) mg/dL Magnesium 1.8 (1.7-2.8) mg/dL Total Bilirubin 0.6 (0.2-1.0) mg/dL AST 66 H (10-42) IU/L ALT 85 H (10-60) IU/L Alkaline Phosphatase 71 (42-121) IU/L Total Protein 5.1 L (6.7-8.2) g/dL Albumin 2.6 L (3.2-5.5) g/dL Globulin 2.5 (2.1-4.2) g/dL Albumin/Globulin Ratio 1.0 (1.0-2.2) Prealbumin 10 L (18-45) mg/dL Triglycerides 256 H ( - 149) mg/dL Urine Color Urine Clarity (CLEAR) Urine pH (5.0-7.5) PH Ur Specific [place] (1.002-1.030) Urine Protein (NEGATIVE) mg/dL Urine Glucose (UA) (NEGATIVE) mg/dL Urine Ketones (NEGATIVE) mg/dL Urine Occult Blood (NEGATIVE) Urine Nitrite (NEGATIVE) Urine Bilirubin (NEGATIVE) Urine Urobilinogen (NORMAL) E.U./dL Ur Leukocyte Esterase (NEGATIVE) Ur Microscopic Review Urine Culture Comments 09/08/17 09/08/17 09/08/17 Range/Units 05:20 05:20 00:10 WBC 10.8 (4.8-10.8) x10^3/uL RBC 2.76 L (4.20-5.40) 10^6/uL Hgb 8.0 L (12.0-16.0) g/dL Hct 24.2 L (37.0-47.0) % MCV 87.9 (81.0-99.0) fL MCH 28.9 (27.0-31.0) pg MCHC 32.9 (32.0-36.0) g/dL RDW 15.8 H (12.0-15.0) % Plt Count 176 (130-450) 10^3/uL MPV 9.1 (7.9-10.8) fL Neut # Not Reportable Lymph # Not Reportable [place] # Not Reportable Eos # Not Reportable Baso # Not Reportable Absolute Nucleated RBC Not Reportable Total Counted 100 Band Neuts % (Manual) 7 (0 - 10) % Abnorm Lymph % (Manual) 0 % Nucleated RBC % Not Reportable Neutrophils # (Manual) 8.6 H (1.5-6.6) 10^3/uL Lymphocytes # (Manual) 1.7 (1.5-3.5) 10^3/uL Monocytes # (Manual) 0.2 (0.0-1.0) 10^3/uL Eosinophils # (Manual) 0.2 (0-0.7) 10^3/uL Basophils # (Manual) 0.0 (0-0.1) 10^3/uL Nucleated RBCs 1 % Differential Comment MANUAL DIFFERENTIAL Platelet Estimate NORMAL (130-450,000) (NORMAL) RBC Morph Micro Appear NORMAL APPEARANCE (NORMAL) PT 13.3 H (9.9-12.6) secs INR 1.2 (0.8-1.2) Bld Gas Analysis Time Sample Site ABG pH (7.35-7.45) ABG pCO2 (34-45) mmHg ABG pO2 (80-100) mmHg ABG HCO3 (22.0-26.0) mmol/L ABG Total CO2 (21.0-29.0) MMOL/L ABG O2 Saturation (94-98) % ABG Oximetry Spot Check % ABG Base Excess (-2.0-3.0) mmol/L Angel Luis Test Respiration Rate b/min O2 Delivery Device Vent Mode FiO2 Tidal Volume mL PEEP cmH2O Pressure Support Vent cmH2O Sodium (135-145) mmol/L Potassium (3.5-5.0) mmol/L Chloride (101-111) mmol/L Carbon Dioxide (21-32) mmol/L Anion Gap (6-13) BUN (6-20) mg/dL Creatinine (0.4-1.0) mg/dL Estimated GFR (MDRD) (>89) Glucose (70-100) mg/dL POC Whole Bld Glucose (70 - 100) mg/dL Calcium (8.5-10.3) mg/dL Phosphorus (2.5-4.6) mg/dL Magnesium (1.7-2.8) mg/dL Total Bilirubin (0.2-1.0) mg/dL AST (10-42) IU/L ALT (10-60) IU/L Alkaline Phosphatase (42-121) IU/L Total Protein (6.7-8.2) g/dL Albumin (3.2-5.5) g/dL Globulin (2.1-4.2) g/dL Albumin/Globulin Ratio (1.0-2.2) Prealbumin (18-45) mg/dL Triglycerides ( - 149) mg/dL Urine Color YELLOW Urine Clarity CLEAR (CLEAR) Urine pH 6.0 (5.0-7.5) PH Ur Specific [place] 1.020 (1.002-1.030) Urine Protein TRACE (NEGATIVE) mg/dL Urine Glucose (UA) NEGATIVE (NEGATIVE) mg/dL Urine Ketones NEGATIVE (NEGATIVE) mg/dL Urine Occult Blood NEGATIVE (NEGATIVE) Urine Nitrite NEGATIVE (NEGATIVE) Urine Bilirubin NEGATIVE (NEGATIVE) Urine Urobilinogen 0.2 (NORMAL) (NORMAL) E.U./dL Ur Leukocyte Esterase NEGATIVE (NEGATIVE) Ur Microscopic Review NOT INDICATED Urine Culture Comments NOT INDICATED 09/07/17 09/07/17 09/07/17 Range/Units 23:36 20:06 18:24 WBC (4.8-10.8) x10^3/uL RBC (4.20-5.40) 10^6/uL Hgb (12.0-16.0) g/dL Hct (37.0-47.0) % MCV (81.0-99.0) fL MCH (27.0-31.0) pg MCHC (32.0-36.0) g/dL RDW (12.0-15.0) % Plt Count (130-450) 10^3/uL MPV (7.9-10.8) fL Neut # Lymph # [place] # Eos # Baso # Absolute Nucleated RBC Total Counted Band Neuts % (Manual) (0 - 10) % Abnorm Lymph % (Manual) % Nucleated RBC % Neutrophils # (Manual) (1.5-6.6) 10^3/uL Lymphocytes # (Manual) (1.5-3.5) 10^3/uL Monocytes # (Manual) (0.0-1.0) 10^3/uL Eosinophils # (Manual) (0-0.7) 10^3/uL Basophils # (Manual) (0-0.1) 10^3/uL Nucleated RBCs % Differential Comment Platelet Estimate (NORMAL) RBC Morph Micro Appear (NORMAL) PT (9.9-12.6) secs INR (0.8-1.2) Bld Gas Analysis Time Sample Site ABG pH (7.35-7.45) ABG pCO2 (34-45) mmHg ABG pO2 (80-100) mmHg ABG HCO3 (22.0-26.0) mmol/L ABG Total CO2 (21.0-29.0) MMOL/L ABG O2 Saturation (94-98) % ABG Oximetry Spot Check % ABG Base Excess (-2.0-3.0) mmol/L Angel Luis Test Respiration Rate b/min O2 Delivery Device Vent Mode FiO2 Tidal Volume mL PEEP cmH2O Pressure Support Vent cmH2O Sodium (135-145) mmol/L Potassium (3.5-5.0) mmol/L Chloride (101-111) mmol/L Carbon Dioxide (21-32) mmol/L Anion Gap (6-13) BUN (6-20) mg/dL Creatinine (0.4-1.0) mg/dL Estimated GFR (MDRD) (>89) Glucose (70-100) mg/dL POC Whole Bld Glucose 128 H 114 H 104 H (70 - 100) mg/dL Calcium (8.5-10.3) mg/dL Phosphorus (2.5-4.6) mg/dL Magnesium (1.7-2.8) mg/dL Total Bilirubin (0.2-1.0) mg/dL AST (10-42) IU/L ALT (10-60) IU/L Alkaline Phosphatase (42-121) IU/L Total Protein (6.7-8.2) g/dL Albumin (3.2-5.5) g/dL Globulin (2.1-4.2) g/dL Albumin/Globulin Ratio (1.0-2.2) Prealbumin (18-45) mg/dL Triglycerides ( - 149) mg/dL Urine Color Urine Clarity (CLEAR) Urine pH (5.0-7.5) PH Ur Specific [place] (1.002-1.030) Urine Protein (NEGATIVE) mg/dL Urine Glucose (UA) (NEGATIVE) mg/dL Urine Ketones (NEGATIVE) mg/dL Urine Occult Blood (NEGATIVE) Urine Nitrite (NEGATIVE) Urine Bilirubin (NEGATIVE) Urine Urobilinogen (NORMAL) E.U./dL Ur Leukocyte Esterase (NEGATIVE) Ur Microscopic Review Urine Culture Comments 09/07/17 Range/Units 12:10 WBC (4.8-10.8) x10^3/uL RBC (4.20-5.40) 10^6/uL Hgb (12.0-16.0) g/dL Hct (37.0-47.0) % MCV (81.0-99.0) fL MCH (27.0-31.0) pg MCHC (32.0-36.0) g/dL RDW (12.0-15.0) % Plt Count (130-450) 10^3/uL MPV (7.9-10.8) fL Neut # Lymph # [place] # Eos # Baso # Absolute Nucleated RBC Total Counted Band Neuts % (Manual) (0 - 10) % Abnorm Lymph % (Manual) % Nucleated RBC % Neutrophils # (Manual) (1.5-6.6) 10^3/uL Lymphocytes # (Manual) (1.5-3.5) 10^3/uL Monocytes # (Manual) (0.0-1.0) 10^3/uL Eosinophils # (Manual) (0-0.7) 10^3/uL Basophils # (Manual) (0-0.1) 10^3/uL Nucleated RBCs % Differential Comment Platelet Estimate (NORMAL) RBC Morph Micro Appear (NORMAL) PT (9.9-12.6) secs INR (0.8-1.2) Bld Gas Analysis Time Sample Site ABG pH (7.35-7.45) ABG pCO2 (34-45) mmHg ABG pO2 (80-100) mmHg ABG HCO3 (22.0-26.0) mmol/L ABG Total CO2 (21.0-29.0) MMOL/L ABG O2 Saturation (94-98) % ABG Oximetry Spot Check % ABG Base Excess (-2.0-3.0) mmol/L Angel Luis Test Respiration Rate b/min O2 Delivery Device Vent Mode FiO2 Tidal Volume mL PEEP cmH2O Pressure Support Vent cmH2O Sodium (135-145) mmol/L Potassium (3.5-5.0) mmol/L Chloride (101-111) mmol/L Carbon Dioxide (21-32) mmol/L Anion Gap (6-13) BUN (6-20) mg/dL Creatinine (0.4-1.0) mg/dL Estimated GFR (MDRD) (>89) Glucose (70-100) mg/dL POC Whole Bld Glucose 132 H (70 - 100) mg/dL Calcium (8.5-10.3) mg/dL Phosphorus (2.5-4.6) mg/dL Magnesium (1.7-2.8) mg/dL Total Bilirubin (0.2-1.0) mg/dL AST (10-42) IU/L ALT (10-60) IU/L Alkaline Phosphatase (42-121) IU/L Total Protein (6.7-8.2) g/dL Albumin (3.2-5.5) g/dL Globulin (2.1-4.2) g/dL Albumin/Globulin Ratio (1.0-2.2) Prealbumin (18-45) mg/dL Triglycerides ( - 149) mg/dL Urine Color Urine Clarity (CLEAR) Urine pH (5.0-7.5) PH Ur Specific [place] (1.002-1.030) Urine Protein (NEGATIVE) mg/dL Urine Glucose (UA) (NEGATIVE) mg/dL Urine Ketones (NEGATIVE) mg/dL Urine Occult Blood (NEGATIVE) Urine Nitrite (NEGATIVE) Urine Bilirubin (NEGATIVE) Urine Urobilinogen (NORMAL) E.U./dL Ur Leukocyte Esterase (NEGATIVE) Ur Microscopic Review Urine Culture Comments - Current Medications Current Medications: Current Medications Generic Name Dose Route Start Last Admin Trade Name Freq PRN Reason Stop Dose Admin Chlorhexidine Gluconate 15 ml 09/06/17 09:00 09/08/17 09:17 Peridex PO 15 ml BID AMNA Administration Hydralazine HCl 20 mg 09/07/17 16:00 09/08/17 08:19 Apresoline Inj IVP 20 mg Q8H AMNA Administration Cefepime HCl 1 gm/ Sodium 100 mls @ 200 mls/hr 09/04/17 19:00 09/08/17 06:30 Chloride IV 09/14/17 23:55 Infused TID AMNA Infusion Propofol 100 mls @ 3.69 mls/hr 09/04/17 19:00 09/08/17 08:00 Diprivan IV Infused .Q27H7M AMNA Titration Protocol 10 MCG/KG/MIN Acetaminophen 100 mls @ 400 mls/hr 09/05/17 21:00 09/08/17 09:10 Ofirmev IV Infused Q6H AMNA Infusion Multivitamins 10 ml/ Amino Ac/ 2,010 mls @ 83 mls/hr 09/07/17 19:00 09/08/17 09:00 Electrol/Dextrose/Calcium IV 83 mls/hr Q24H AMNA Infusion Protocol Fat Emulsion Intravenous 250 mls @ 21 mls/hr 09/07/17 19:00 09/08/17 07:20 Intralipid 20% IV Infused Q24H AMNA Infusion Chromium/Copper/Manganese/ 102.48 mls @ 4.27 mls/hr 09/07/17 19:00 09/08/17 09:00 Seleni/Zn 1 ml/ Magnesium IV 4.2 mls/hr Sulfate 0.74 gm/ Sodium Q24H AMNA Infusion Chloride Potassium Phosphate 12 mmol/ 104.1 mls @ 4.338 mls/hr 09/07/17 19:00 09:00 Insulin Human Regular 10 unit/ IV 4.3 mls/hr Sodium Chloride Q24H AMNA Infusion Albumin Human 12.5 gm in 50 mls @ 50 mls/hr 09/08/17 03:00 09/08/17 09:33 Albuminar-25 IV 09/08/17 09:59 50 mls/hr Q6H AMNA Administration Ketorolac Tromethamine 30 mg 09/08/17 00:01 09/08/17 00:25 Toradol Inj IVP 09/13/17 00:00 30 mg Q6HR PRN Administration Pain or T>100.4 Pantoprazole Sodium 40 mg 09/04/17 21:00 09/08/17 09:25 Protonix IVP 40 mg BID AMNA Administration Sodium Chloride 10 ml 09/05/17 22:00 09/08/17 05:45 Normal Saline Flush 0.9% IVP 10 ml Q8HR AMNA Administration Sodium Chloride 10 ml 09/05/17 19:08 09/08/17 09:36 Normal Saline Flush 0.9% IVP 20 ml PRN PRN Administration NEEDED PER PROVIDER ORDERS - Physical Exam Wound/Incisions: positive: Other (pink granulation tissue. Minimal derous drainage) General Appearance: positive: Anxious, Other (aggitated) Respiratory: positive: Other (intubated on SIMV) Cardiovascular: positive: Other (sinus tachycardia) Abdomen: positive: Other (soft, non-distended, non-tender to palpation. stoma pink. ILSA drain in place with serous drainage) Extremities: positive: Pedal edema Neurologic/Psychiatric: positive: Other (very aggitated, not following commands. moves four extremities) Impression/Plan - Problem List Problem List: s/p ex lap with sigmoidectomy and right hemicolectomy for perforated sigmoid diverticulitis, open abdomen and re-look 24 hours later with further resection of ileum, coloenteric anastomosis and colostomy POD 3 - Patient remains intubated due to failure to follow commands. She is still receiving occasional versed and Dilaudid every hour. I recommend discontinuing dilauded and versed entirely. Tylenol and Torodol for pain. If patient demonstrates clear signs of pain, resumption of narcotic PRN may be necessary. On exam the patient does not appear to be in pain. If agitation persists, CT of head may be warranted. If her agitation fails to improve off sedation and narcotics, haldol PRN may be more appropriate. I do recommend spontaneous breathing trial to further assess her ability to safely extubate. - Continue TPN for nutrition. No tube feeds for now; will reassess once patient is extubated - Continue NGT to low continuous wall suction - continue antibiotics for perforated viscus - continue luu catheter until patient is extubated. Monitor strict I and O. She has started diuresing but remained 900 mL positive yesterday. Consider adding lasix or restricting fluid intake to avoid fluid overload.
[2017-09-08] MEDS: MIDAZOLAM 2 MG/2 ML VIAL IVP ONE (11:43)
[2017-09-08 11:54] LABS: ABG ANALYSIS TIME 1150; ABG BASE EXCESS -0.7 mmol/L (-2.0-3.0); ABG HCO3 22.1 mmol/L (22.0-26.0); ABG PCO2 29 mmHg (34-45)
[2017-09-08 11:55] LABS: ABG MODE OF VENTILATION SIMV; ABG O2 DEVICE VENTILATOR; ABG RESPIRATORY RATE 14 b/min; ABG SATURATION PULSE OXIMETRY% 73 %; ABG SITE OF DRAW A-LINE
[2017-09-08 11:56] LABS: ABG PEAK END EXPIRATORY PRESSU 7 cmH2O; ABG PRESSURE SUPPORT VENT 10 cmH2O
[2017-09-08 11:58] LABS: ABG OXYGEN SATURATION 80 % (94-98); ABG PO2 39 mmHg (80-100)
[2017-09-08] MEDS ORDERED: MIDAZOLAM 2 MG/2 ML VIAL IVP ONE (12:19)
--- NOTE | 2017-09-08 13:09 | XRAY Preliminary Report ---
Exam: XR CHEST 1 VIEW IMPRESSION: Findings most consistent with increasing mild cardiac failure with interval development o f small right pleural effusion. [facility] SITE ID: [id number]
--- NOTE | 2017-09-08 13:12 | XRAY Report ---
EXAM: CHEST RADIOGRAPHY, PORTABLE ONE VIEW EXAM DATE: 09/08/2017 08:03 AM. CLINICAL HISTORY: 62-year-old female with respiratory distress, on ventilator. Assess for aspiration. COMPARISON: Similar study of 09/07/2017 and previous. TECHNIQUE: 0748 hour AP semierect portable view. FINDINGS: Lungs/Pleura: Increasing infiltrates and/or atelectasis/edema bilaterally, slightly worse on the righ t with probable small right pleural effusion. No pneumothorax bilaterally. Mediastinum: Heart size mildly enlarged with mild to moderate pulmonary vascular congestion. Other: Trachea is midline. Endotracheal, nasogastric and right jugular venous tubes in stable and sat isfactory position. IMPRESSION: Findings most consistent with increasing mild cardiac failure with interval development o f small right pleural effusion. [facility] Referring Provider Line: [phone] SITE ID: [id number]
[2017-09-08] MEDS ORDERED: IOPAMIDOL-300 100 ML VIAL ONE (13:58)
[2017-09-08] MEDS: MIDAZOLAM 2 MG/2 ML VIAL IVP PRN ×6 (14:18→23:06)
--- NOTE | 2017-09-08 15:55 | CT Preliminary Report ---
Exam: CT HEAD W/O IMPRESSION: Mildly technically limited study secondary to patient motion artifact. No acute intracran ial process or posttraumatic abnormality. Mild, likely chronic, sinusitis changes in the left ethmoid and sphenoid sinuses. [facility] SITE ID: [id number]
--- NOTE | 2017-09-08 15:58 | CT Report ---
EXAM: CT HEAD WITHOUT CONTRAST EXAM DATE: 09/08/2017 03:41 PM. CLINICAL HISTORY: Encephalopathy and dyskinesia in a 62-year-old female. COMPARISON: None. TECHNIQUE: Multiaxial CT images were obtained from the foramen magnum to the vertex. Reformats: Coron al. IV contrast: None. In accordance with CT protocol optimization, one or more of the following dose reduction techniques w ere utilized for this exam: automated exposure control, adjustment of mA and/or KV based on patient s ize, or use of iterative reconstructive technique. FINDINGS: Study technically limited by patient inability to remain still patient motion artifact. Parenchyma: No intraparenchymal hemorrhage. No evidence of mass, midline shift, or CT findings of inf arction. Bustos-white differentiation is distinct. Extraaxial Spaces: Normal for age. No subdural or epidural collections identified. Ventricles: Normal in size and position. Sinuses and Orbits: Patchy areas of fluid the left sphenoid sinus and portions of the left ethmoid si nuses. Remaining paranasal sinuses are clear. Orbits are unremarkable. Mastoid air cells widely paten t and well aerated. Bones: No evidence of fracture or calvarial defect. Other: None. IMPRESSION: Mildly technically limited study secondary to patient motion artifact. No acute intracran ial process or posttraumatic abnormality. Mild, likely chronic, sinusitis changes in the left ethmoid and sphenoid sinuses. [facility] Referring Provider Line: [phone] SITE ID: [id number]
--- NOTE | 2017-09-08 16:00 | CT Preliminary Report ---
Exam: CT CHEST ANGIO (PE) IMPRESSION: Mildly technically limited study due to patient respiratory motion artifact. No CT evidence for pulmonary embolus. Small bilateral pleural effusions with patchy infiltrate and/or atelectasis both lung bases, slightly worse on the right. Findings suggest mild CHF. [facility] SITE ID: [id number]
--- NOTE | 2017-09-08 16:03 | CT Report ---
EXAM: CT ANGIOGRAM CHEST WITH CONTRAST, PULMONARY EMBOLUS PROTOCOL EXAM DATE: 09/08/2017 03:42 PM. CLINICAL HISTORY: 62-year-old female with respiratory distress, on ventilator. Assess for pulmonary e mbolus. COMPARISON: AP portable chest of earlier today and previous chest radiographs. No prior chest CT avai lable for comparison. TECHNIQUE: Routine helical imaging was performed through the chest in the pulmonary arterial phase. I V Contrast: 80 mL Isovue-300. Reconstructions: Coronal and sagittal 3-D MIP reconstructions.Sagittal and coronal MPR. In accordance with CT protocol optimization, one or more of the following dose reduction techniques w ere utilized for this exam: automated exposure control, adjustment of mA and/or KV based on patient s ize, or use of iterative reconstructive technique. FINDINGS: Study mildly to moderately degraded by patient respiratory motion artifact. Pulmonary Arteries: Diagnostic quality: Adequate through the segmental arteries. No evidence for acute or chronic pulmona ry emboli. RV/LV is within normal limits. There is no interventricular septal bowing. There is no reflux of cont rast material in the IVC. Lungs/Pleura: Small bilateral pleural effusions, with patchy infiltrate or atelectasis both lung base s, slightly worse on the right. No pneumothorax. Mediastinum: Heart size mildly enlarged. No adenopathy or pericardial effusion. Thoracic Aorta: Unremarkable. Upper Abdomen: Unremarkable. Other: Osseous structures unremarkable for age. IMPRESSION: Mildly technically limited study due to patient respiratory motion artifact. No CT evidence for pulmonary embolus. Small bilateral pleural effusions with patchy infiltrate and/or atelectasis both lung bases, slightly worse on the right. Findings suggest mild CHF. [facility] Referring Provider Line: [phone] SITE ID: [id number]
--- NOTE | 2017-09-08 16:19 | PROVIDER PROGRESS NOTE ---
Assessment/Plan - Problem List (1) Altered mental status Qualifiers: Altered mental status type: unspecified Qualified Code(s): R41.82 - Altered mental status, unspecified Assessment/Plan: Involuntary mscle motions and thrashing suggests pain reponse vs Propofol effect (I discussed with pharmacy). Will sedate with Versed only and obtain head CT to R/O CVA or mass. No extubation today. (2) Hypoxia Assessment/Plan: No extubation today. CXR unremarkable. Will obtain CTA chest to R/O PE. No extubation today, as she will need higher FIO2 setting currently and unable to CPAP. (3) Perforated sigmoid colon Assessment/Plan: Stable clinically with no shock, improving WBC. Continue present care (4) S/P laparotomy Assessment/Plan: Plan as per surgery. (5) Anasarca Assessment/Plan: Pt did start to increase hourly urine output. Will eventually need diuretic to mobilize third spaced fluids. Will await W/U for new hypoxia and new involuntary muscle movements and altered mental status, before starting diuretic. (6) Peritonitis (acute) generalized Assessment/Plan: Continue antibiotics. Pt has ng tube to suction. Per surgeon, do not start GI feeds yet today. Will continue tpn with lipids and supplements. (7) Septic shock Assessment/Plan: Resolved. Pt now hypertensive. - Current Meds Current Meds: Current Medications Generic Name Dose Route Start Last Admin Trade Name Freq PRN Reason Stop Dose Admin Chlorhexidine Gluconate 15 ml 09/06/17 09:00 09/08/17 09:17 Peridex PO 15 ml BID AMNA Administration Hydralazine HCl 20 mg 09/07/17 16:00 09/08/17 08:19 Apresoline Inj IVP 20 mg Q8H AMNA Administration Cefepime HCl 1 gm/ Sodium 100 mls @ 200 mls/hr 09/04/17 19:00 09/08/17 16:00 Chloride IV 09/14/17 23:55 200 mls/hr TID AMNA Administration Acetaminophen 100 mls @ 400 mls/hr 09/05/17 21:00 09/08/17 16:09 Ofirmev IV 400 mls/hr Q6H AMNA Administration Multivitamins 10 ml/ Amino Ac/ 2,010 mls @ 83 mls/hr 09/07/17 19:00 09/08/17 15:45 Electrol/Dextrose/Calcium IV 83 mls/hr Q24H AMNA Infusion Protocol Fat Emulsion Intravenous 250 mls @ 21 mls/hr 09/07/17 19:00 09/08/17 07:20 Intralipid 20% IV Infused Q24H AMNA Infusion Chromium/Copper/Manganese/ 102.48 mls @ 4.27 mls/hr 09/07/17 19:00 09/08/17 15:40 Seleni/Zn 1 ml/ Magnesium IV 4.2 mls/hr Sulfate 0.74 gm/ Sodium Q24H AMNA Infusion Chloride Potassium Phosphate 12 mmol/ 104.1 mls @ 4.338 mls/hr 09/07/17 19:00 15:40 Insulin Human Regular 10 unit/ IV 4.3 mls/hr Sodium Chloride Q24H AMNA Infusion Ketorolac Tromethamine 30 mg 09/08/17 00:01 09/08/17 00:25 Toradol Inj IVP 09/13/17 00:00 30 mg Q6HR PRN Administration Pain or T>100.4 Midazolam HCl 4 mg 09/08/17 12:23 09/08/17 15:00 Versed IVP 4 mg Q2H PRN Administration Agitation Pantoprazole Sodium 40 mg 09/04/17 21:00 09/08/17 09:25 Protonix IVP 40 mg BID AMNA Administration Sodium Chloride 10 ml 09/05/17 22:00 09/08/17 05:45 Normal Saline Flush 0.9% IVP 10 ml Q8HR AMNA Administration Sodium Chloride 10 ml 09/05/17 19:08 09/08/17 09:36 Normal Saline Flush 0.9% IVP 20 ml PRN PRN Administration NEEDED PER PROVIDER ORDERS - Lab Result Fish Bone Diagrams: 09/09/17 03:35 09/09/17 03:35 - Additional Planning My Orders: My Active Orders 09/07/17 16:00 hydrALAZINE INJ [Apresoline Inj] 20 mg IVP Q8H 09/07/17 18:36 Min Oil/Dimeth/Coconut Oil Crm [Cavilon] 1 applic TOP PRN PRN 09/08/17 08:00 Arterial Blood Gases - RT [RC] .ONCE 09/08/17 11:50 ABG [Arterial Blood Gases - RT] [RC] .ONCE 09/08/17 12:23 Midazolam [Versed] 4 mg IVP Q2H PRN Subjective - Subjective Patient Reports: Other (Pt agitataed, eyes open but not following commands.) Nursing Reports: Other (Pt has choreoform movements, is trying to sit up in bed despite wrist restraints.) Objective Vital Signs: Vital Signs - 24 hr 09/07/17 09/07/17 09/07/17 17:00 17:24 18:00 Temperature 37.4 C Heart Rate 115 H Heart Rate [ 114 H 116 H Monitoring electrodes] Respiratory 14 14 Rate Blood Pressure Blood Pressure [Left Brachial artery] Blood Pressure 126/72 127/80 [Right Brachial artery] Blood Pressure 105/60 117/63 [Right Radial artery] O2 Saturation 92 96 09/07/17 09/07/17 09/07/17 18:53 19:30 19:45 Temperature 37.7 C H Heart Rate 117 H Heart Rate [ 115 H Monitoring electrodes] Respiratory 14 Rate Blood Pressure Blood Pressure [Left Brachial artery] Blood Pressure 127/80 [Right Brachial artery] Blood Pressure 113/63 [Right Radial artery] O2 Saturation 96 09/07/17 09/07/17 09/07/17 20:00 21:00 21:30 Temperature Heart Rate 115 H Heart Rate [ 116 H 115 H Monitoring electrodes] Respiratory 15 15 Rate Blood Pressure Blood Pressure [Left Brachial artery] Blood Pressure 138/74 H 157/88 H [Right Brachial artery] Blood Pressure 121/63 141/70 H [Right Radial artery] O2 Saturation 97 97 09/07/17 09/07/17 09/07/17 22:00 23:00 23:13 Temperature Heart Rate Heart Rate [ 115 H 121 H 117 H Monitoring electrodes] Respiratory 15 18 Rate Blood Pressure Blood Pressure 150/91 H [Left Brachial artery] Blood Pressure 156/99 H 168/97 H [Right Brachial artery] Blood Pressure 144/78 H 155/78 H 148/73 H [Right Radial artery] O2 Saturation 97 97 09/07/17 09/07/17 09/07/17 23:15 23:20 23:29 Temperature Heart Rate Heart Rate [ 117 H 118 H Monitoring electrodes] Respiratory Rate Blood Pressure 137/69 H Blood Pressure 159/84 H 152/89 H [Left Brachial artery] Blood Pressure [Right Brachial artery] Blood Pressure 148/72 H 142/71 H [Right Radial artery] O2 Saturation 09/07/17 09/07/17 09/07/17 23:30 23:35 23:38 Temperature 37.9 C H Heart Rate 119 H Heart Rate [ 118 H 119 H Monitoring electrodes] Respiratory Rate Blood Pressure Blood Pressure 160/89 H 150/89 H [Left Brachial artery] Blood Pressure [Right Brachial artery] Blood Pressure 140/70 H 122/64 [Right Radial artery] O2 Saturation 09/07/17 09/07/17 09/08/17 23:40 23:45 00:00 Temperature Heart Rate Heart Rate [ 121 H 122 H 124 H Monitoring electrodes] Respiratory 17 Rate Blood Pressure Blood Pressure 135/77 H 131/82 H 140/82 H [Left Brachial artery] Blood Pressure [Right Brachial artery] Blood Pressure 107/59 L 106/59 L 109/61 [Right Radial artery] O2 Saturation 97 09/08/17 09/08/17 09/08/17 01:00 01:30 01:52 Temperature 37.6 C H 37.4 C Heart Rate 118 H Heart Rate [ 120 H Monitoring electrodes] Respiratory 14 Rate Blood Pressure Blood Pressure 120/79 [Left Brachial artery] Blood Pressure [Right Brachial artery] Blood Pressure 111/64 [Right Radial artery] O2 Saturation 98 09/08/17 09/08/17 09/08/17 02:00 03:00 03:30 Temperature 37.3 C Heart Rate 112 H Heart Rate [ 120 H 114 H Monitoring electrodes] Respiratory 15 12 Rate Blood Pressure Blood Pressure 161/91 H 140/83 H [Left Brachial artery] Blood Pressure [Right Brachial artery] Blood Pressure 162/79 H 126/65 [Right Radial artery] O2 Saturation 97 97 09/08/17 09/08/17 09/08/17 04:00 05:00 05:30 Temperature Heart Rate 108 H Heart Rate [ 111 H 111 H Monitoring electrodes] Respiratory 11 L 14 Rate Blood Pressure Blood Pressure 155/93 H 151/97 H [Left Brachial artery] Blood Pressure [Right Brachial artery] Blood Pressure 151/71 H 146/79 H [Right Radial artery] O2 Saturation 97 98 09/08/17 09/08/17 09/08/17 06:00 07:00 08:00 Temperature 37.2 C Heart Rate 120 H Heart Rate [ 110 H 114 H 121 H Monitoring electrodes] Respiratory 12 14 16 Rate Blood Pressure Blood Pressure 139/80 H 182/97 H 203/115 H [Left Brachial artery] Blood Pressure [Right Brachial artery] Blood Pressure 135/70 H 183/90 H 181/84 H [Right Radial artery] O2 Saturation 98 96 95 09/08/17 09/08/17 09/08/17 08:19 08:25 08:30 Temperature Heart Rate Heart Rate [ 122 H 126 H Monitoring electrodes] Respiratory Rate Blood Pressure 200/94 H Blood Pressure [Left Brachial artery] Blood Pressure [Right Brachial artery] Blood Pressure 165/77 H 145/77 H [Right Radial artery] O2 Saturation 09/08/17 09/08/17 09/08/17 08:35 08:50 09:00 Temperature 37.5 C Heart Rate Heart Rate [ 126 H 128 H 128 H Monitoring electrodes] Respiratory 22 Rate Blood Pressure Blood Pressure 147/85 H [Left Brachial artery] Blood Pressure [Right Brachial artery] Blood Pressure 141/72 H 137/77 H 132/75 H [Right Radial artery] O2 Saturation 09/08/17 09/08/17 09/08/17 09:05 09:20 10:00 Temperature 37.7 C H Heart Rate Heart Rate [ 129 H 128 H 125 H Monitoring electrodes] Respiratory 28 H Rate Blood Pressure Blood Pressure 125/87 H [Left Brachial artery] Blood Pressure [Right Brachial artery] Blood Pressure 132/72 H 129/77 122/68 [Right Radial artery] O2 Saturation 90 L 09/08/17 09/08/17 09/08/17 10:15 11:00 12:00 Temperature 37.0 C 37.3 C Heart Rate 125 H Heart Rate [ 122 H 109 H Monitoring electrodes] Respiratory 22 26 H Rate Blood Pressure Blood Pressure 119/72 [Left Brachial artery] Blood Pressure [Right Brachial artery] Blood Pressure 147/71 H 135/71 H [Right Radial artery] O2 Saturation 86 L 92 09/08/17 09/08/17 09/08/17 12:59 14:00 14:45 Temperature 36.9 C Heart Rate 126 H Heart Rate [ 108 H 104 H Monitoring electrodes] Respiratory 20 22 Rate Blood Pressure Blood Pressure 157/95 H 132/75 H [Left Brachial artery] Blood Pressure [Right Brachial artery] Blood Pressure 185/89 H 132/75 H [Right Radial artery] O2 Saturation 94 97 09/08/17 16:00 Temperature 36.8 C Heart Rate Heart Rate [ 109 H Monitoring electrodes] Respiratory 22 Rate Blood Pressure Blood Pressure [Left Brachial artery] Blood Pressure [Right Brachial artery] Blood Pressure 214/105 H [Right Radial artery] O2 Saturation 99 Oxygen O2 Source Mechanical ventilator I&O (Last 24 Hrs): Intake and Output Totals x24h 09/06/17 09/07/17 09/08/17 23:59 23:59 23:59 Intake Total 3783.977 3533.653 2197.225 Output Total 4192 2615 2610 Balance -408.023 918.653 -412.775 General: Other (Intubated) HEENT: Mucous membr. moist/pink Neck: Supple Neuro: Other (Pt does not respond to name or to sternal rub, despite moving all extremities, turning head, sitting up in bed and thrashing. O2 sat dropped to 70 % on 24% FIO2 and RR increased to 30 during this time.) Cardiovascular: Regular rate, Other (2/6 systolic murmur at LUSB) Respiratory: Other (Clear anterior lung cortes) Abdomen: Soft, Other (clean dressing and minimal pink drainage in ILSA drain) Extremities: Other (2+ edema diffusely) - Results Results: Laboratory Results WBC 10.8 x10^3/uL (4.8-10.8) 09/08/17 05:20 RBC 2.76 10^6/uL (4.20-5.40) L 09/08/17 05:20 Hgb 8.0 g/dL (12.0-16.0) L 09/08/17 05:20 Hct 24.2 % (37.0-47.0) L 09/08/17 05:20 MCV 87.9 fL (81.0-99.0) 09/08/17 05:20 MCH 28.9 pg (27.0-31.0) 09/08/17 05:20 MCHC 32.9 g/dL (32.0-36.0) 09/08/17 05:20 RDW 15.8 % (12.0-15.0) H 09/08/17 05:20 Plt Count 176 10^3/uL (130-450) 09/08/17 05:20 MPV 9.1 fL (7.9-10.8) 09/08/17 05:20 Neut # Not Reportable 09/08/17 05:20 Lymph # Not Reportable 09/08/17 05:20 [place] # Not Reportable 09/08/17 05:20 Eos # Not Reportable 09/08/17 05:20 Baso # Not Reportable 09/08/17 05:20 Absolute Nucleated RBC Not Reportable 09/08/17 05:20 Total Counted 100 09/08/17 05:20 Band Neuts % (Manual) 7 % (0-10) 09/08/17 05:20 Reactive Lymphs % (Man) 15 % 09/05/17 04:35 Abnorm Lymph % (Manual) 0 % 09/08/17 05:20 Metamyelocytes % 2 % (-0) H 09/05/17 19:33 Myelocytes % 1 % (-0) H 09/04/17 16:22 Nucleated RBC % Not Reportable 09/08/17 05:20 Neutrophils # (Manual) 8.6 10^3/uL (1.5-6.6) H 09/08/17 05:20 Lymphocytes # (Manual) 1.7 10^3/uL (1.5-3.5) 09/08/17 05:20 Monocytes # (Manual) 0.2 10^3/uL (0.0-1.0) 09/08/17 05:20 Eosinophils # (Manual) 0.2 10^3/uL (0-0.7) 09/08/17 05:20 Basophils # (Manual) 0.0 10^3/uL (0-0.1) 09/08/17 05:20 Nucleated RBCs 1 % 09/08/17 05:20 Differential Comment MANUAL DIFFERENTIAL 09/08/17 05:20 Manual Slide Review Indicated 09/05/17 19:33 WBC Morphology 1+ DOHLE BODIES (NORMAL) 2+ TOXIC GRANULATION (NORMAL) 09/05 19:33 WBC Morphology 1+ DOHLE BODIES (NORMAL) 2+ TOXIC GRANULATION (NORMAL) 09/05 19:33 Platelet Estimate NORMAL (130-450,000) (NORMAL) 09/08/17 05:20 Platelet Morphology NORMAL APPEARANCE (NORMAL) 09/05/17 19:33 RBC Morph Micro Appear NORMAL APPEARANCE (NORMAL) 09/08/17 05:20 PT 13.3 secs (9.9-12.6) H 09/08/17 05:20 INR 1.2 (0.8-1.2) 09/08/17 05:20 Bld Gas Analysis Time 1150 09/08/17 11:50 Sample Site A-LINE 09/08/17 11:50 ABG pH 7.50 (7.35-7.45) H 09/08/17 11:50 ABG pCO2 29 mmHg (34-45) L 09/08/17 11:50 ABG pO2 39 mmHg (80-100) L* 09/08/17 11:50 ABG HCO3 22.1 mmol/L (22.0-26.0) 09/08/17 11:50 ABG Total CO2 23.0 MMOL/L (21.0-29.0) 09/08/17 11:50 ABG O2 Saturation 80 % (94-98) L* 09/08/17 11:50 ABG Oximetry Spot Check 73 % 09/08/17 11:50 ABG Base Excess -0.7 mmol/L (-2.0-3.0) 09/08/17 11:50 Angel Luis Test NOT APPLICABLE 09/08/17 11:50 Respiration Rate 14 b/min 09/08/17 11:50 O2 Delivery Device VENTILATOR 09/08/17 11:50 Vent Mode SIMV 09/08/17 11:50 FiO2 0.30 09/08/17 11:50 Tidal Volume 450 mL 09/08/17 11:50 PEEP 7 cmH2O 09/08/17 11:50 Pressure Support Vent 10 cmH2O 09/08/17 11:50 Sodium 143 mmol/L (135-145) 09/08/17 05:20 Potassium 3.3 mmol/L (3.5-5.0) L 09/08/17 05:20 Chloride 114 mmol/L (101-111) H 09/08/17 05:20 Carbon Dioxide 23 mmol/L (21-32) 09/08/17 05:20 Anion Gap 6.0 (6-13) 09/08/17 05:20 BUN 20 mg/dL (6-20) 09/08/17 05:20 Creatinine 0.8 mg/dL (0.4-1.0) 09/08/17 05:20 Estimated GFR (MDRD) 72 (>89) L 09/08/17 05:20 Glucose 132 mg/dL (70-100) H 09/08/17 05:20 POC Whole Bld Glucose 164 mg/dL (70 - 100) H 09/08/17 11:58 Glycated Hemoglobin 5.8 % (4.6-6.2) 09/04/17 05:45 Estim Average Glucose 120 (70-100) H 09/04/17 05:45 Lactic Acid 1.4 mmol/L (0.5-2.2) 09/05/17 04:35 Calcium 7.7 mg/dL (8.5-10.3) L 09/08/17 05:20 Ionized Calcium NO 09/03/17 21:48 Phosphorus 2.8 mg/dL (2.5-4.6) 09/08/17 05:20 Magnesium 1.8 mg/dL (1.7-2.8) 09/08/17 05:20 Total Bilirubin 0.6 mg/dL (0.2-1.0) 09/08/17 05:20 AST 66 IU/L (10-42) H 09/08/17 05:20 ALT 85 IU/L (10-60) H 09/08/17 05:20 Alkaline Phosphatase 71 IU/L (42-121) 09/08/17 05:20 Troponin I 0.09 ng/mL (<0.49) 09/05/17 12:25 Total Protein 5.1 g/dL (6.7-8.2) L 09/08/17 05:20 Albumin 2.6 g/dL (3.2-5.5) L 09/08/17 05:20 Globulin 2.5 g/dL (2.1-4.2) 09/08/17 05:20 Albumin/Globulin Ratio 1.0 (1.0-2.2) 09/08/17 05:20 Prealbumin 10 mg/dL (18-45) L 09/08/17 05:20 Triglycerides 256 mg/dL (-149) H 09/08/17 05:20 Lipase 13 U/L (22-51) L 09/03/17 16:07 Urine Color YELLOW 09/08/17 00:10 Urine Clarity CLEAR (CLEAR) 09/08/17 00:10 Urine pH 6.0 PH (5.0-7.5) 09/08/17 00:10 Ur Specific [place] 1.020 (1.002-1.030) 09/08/17 00:10 Urine Protein TRACE mg/dL (NEGATIVE) 09/08/17 00:10 Urine Glucose (UA) NEGATIVE mg/dL (NEGATIVE) 09/08/17 00:10 Urine Ketones NEGATIVE mg/dL (NEGATIVE) 09/08/17 00:10 Urine Occult Blood NEGATIVE (NEGATIVE) 09/08/17 00:10 Urine Nitrite NEGATIVE (NEGATIVE) 09/08/17 00:10 Urine Bilirubin NEGATIVE (NEGATIVE) 09/08/17 00:10 Urine Urobilinogen 0.2 (NORMAL) E.U./dL (NORMAL) 09/08/17 00:10 Ur Leukocyte Esterase NEGATIVE (NEGATIVE) 09/08/17 00:10 Urine RBC None Seen /HPF (0-5) 09/03/17 22:19 Urine WBC 0-3 /HPF (0-5) 09/03/17 22:19 Ur Squamous Epith Cells FEW Squamous (<= Few) 09/03/17 22:19 Urine Bacteria None Seen /HPF (None Seen) 09/03/17 22:19 Urine Casts >50 Hyaline Casts /LPF0-2 Fine Granular /LPF 09/03/17 22:19 Urine Casts >50 Hyaline Casts /LPF0-2 Fine Granular /LPF 09/03/17 22:19 Ur Microscopic Review NOT INDICATED 09/08/17 00:10 Urine Culture Comments NOT INDICATED 09/08/17 00:10
[2017-09-08] MEDS ORDERED: SODIUM CHLORIDE 0.9% 500 ML IV ONE (18:31)
[2017-09-08] MEDS: SODIUM CHLORIDE INHALATION 3 ML NEB INH PRN ×2 (19:00→21:00)
[2017-09-08] MEDS: [UNRECOGNIZED DRUG - OTHER] IV SCH (19:10)
[2017-09-08] MEDS: FAT EMULSION 20% 250 ML IV SCH (19:10)
[2017-09-08] MEDS: MAGNESIUM SULFATE IV SCH (19:10)
[2017-09-08] MEDS: INSULIN REGULAR HUMAN IV SCH (19:10)
[2017-09-08] MEDS: [UNRECOGNIZED DRUG - OTHER] IV SCH (19:10)
[2017-09-08] MEDS: POTASSIUM PHOSPHATE IV SCH (19:10)
[2017-09-08] MEDS: TPN (CLINIMIX E 5/15) 2,000 ML with MULTIVITAMIN 10 ML IV SCH ×2 (19:10)
[2017-09-08] MEDS: TRACE ELEMENTS V IV SCH (19:10)
[2017-09-08] MEDS ORDERED: OLANZapine 10 MG VIAL IM SCH (19:23)
[2017-09-08] MEDS ORDERED: WATER FOR INJECTION,STERILE 10 ML ONE (19:36)
[2017-09-08 20:49] LABS: ABG ANALYSIS TIME 2038
[2017-09-08 20:50] LABS: ABG HCO3 29.3 mmol/L (22.0-26.0); ABG OXYGEN SATURATION 100 % (94-98); ABG PCO2 31 mmHg (34-45); ABG PH 7.59 (7.35-7.45); ABG SATURATION PULSE OXIMETRY% 100 %; ABG SITE OF DRAW A-LINE
[2017-09-08 20:51] LABS: ABG MODE OF VENTILATION SIMV; ABG O2 DEVICE VENTILATOR; ABG PEAK END EXPIRATORY PRESSU 7 cmH2O; ABG PRESSURE SUPPORT VENT 10 cmH2O; ABG RESPIRATORY RATE 14 b/min
[2017-09-08 20:54] LABS: ABG PO2 159 mmHg (80-100)
[2017-09-08] MEDS: ONDANSETRON 4 MG/2 ML VIAL IVP PRN (22:17)
[2017-09-08] MEDS ORDERED: VANCOMYCIN PER PHARMACY 0.1 GM in SODIUM CHLORIDE 0.9% 250 ML IV SCH (23:45)
--- NOTE | 2017-09-08 23:55 | PROVIDER PROGRESS NOTE ---
Spark Plug Tester Note - Spark Plug Tester Note Spark Plug Tester Note: Patient has been having several episodes of bigeminy was given versed fro agitation earlier and has been with some rhonchi and scattered faint rales. Propofol withdrawals is a concern. CXR shows worsening bilateral pleural effusions R>L. Would advise on covering for HCAP or nosocomial acquired PNA. Start Vancomycin and d/c versed and instead use precedex due to better side effect profile and can be easily weaned off. Patient to continue with post-op management, PPN, daily labs, pulmonary toilet; s/p Relook with ileal resection, colon resection, ileocolostomy, end colostomy. Currently HD and afebrile
[2017-09-09] MEDS: DEXMEDETOMIDINE 400 MCG/100 ML 100 ML IV SCH ×2 (00:05→12:05)
[2017-09-09] MEDS: SODIUM CHLORIDE FLUSH 0.9% 10 ML SYRINGE IVP PRN ×8 (00:29→16:57)
[2017-09-09] MEDS: SODIUM CHLORIDE INHALATION 3 ML NEB INH PRN ×2 (00:35→00:55)
[2017-09-09] MEDS ORDERED: VANCOMYCIN INJ 1.25 GM in SODIUM CHLORIDE 0.9% 500 ML IV SCH (01:00)
[2017-09-09] MEDS: KETOROLAC 30 MG/ML VIAL IVP PRN (01:11)
[2017-09-09] MEDS: hydrALAZINE INJ 20 MG/ML VIAL IVP SCH ×4 (01:51→23:10)
[2017-09-09] MEDS ORDERED: SODIUM CHLORIDE 0.9% 500 ML IV ONE (02:07)
[2017-09-09] MEDS: ACETAMINOPHEN 1,000 MG/100 ML 100 ML IV SCH ×4 (03:39→20:41)
[2017-09-09 03:52] LABS: BASOPHILS % (AUTO) 0.2 %; EOSINOPHILS % (AUTO) 1.5 %; HCT - HEMATOCRIT 22.4 % (37.0-47.0); HGB - HEMOGLOBIN 7.5 g/dL (12.0-16.0); LYMPHOCYTES % (AUTO) 16.9 %; MEAN CORPUSCULAR HEMOGLOBIN 28.6 pg (27.0-31.0); MEAN CORPUSCULAR HGB CONC 33.5 g/dL (32.0-36.0); MEAN CORPUSCULAR VOLUME 85.4 fL (81.0-99.0); MEAN PLATELET VOLUME 8.9 fL (7.9-10.8); MONOCYTES % (AUTO) 4.6 %; NEUTROPHILS % (AUTO) 76.8 %; RED BLOOD COUNT 2.62 10^6/uL (4.20-5.40); RED CELL DISTRIBUTION WIDTH 16.1 % (12.0-15.0); UNCORRECTED WHITE BLOOD COUNT 13.1 x10^3/uL; WHITE BLOOD COUNT 13.1 x10^3/uL (4.8-10.8)
[2017-09-09 03:59] LABS: ALBUMIN/GLOBULIN RATIO 0.9 (1.0-2.2); BILIRUBIN,TOTAL 0.8 mg/dL (0.2-1.0); CREATININE 0.7 mg/dL (0.4-1.0); MAGNESIUM 1.5 mg/dL (1.7-2.8); POTASSIUM 2.8 mmol/L (3.5-5.0); TOTAL PROTEIN 5.1 g/dL (6.7-8.2)
[2017-09-09 04:31] LABS: BAND NEUTROPHILS % (MANUAL) 7 %; EOSINOPHILS % (MANUAL) 2 %; LYMPHOCYTES % (MANUAL) 13 %; NEUTROPHILS % (MANUAL) 73 %; NP AUTO DIFFERENTIAL? YES; NP MAN DIFFERENTIAL? NO; PLATELET ESTIMATE, MANUAL NORMAL (130-450,000) (NORMAL); TOTAL CELLS COUNTED 100; WBC MORPHOLOGY (MULTIPLE) 1+ TOXIC GRANULATION (NORMAL)
[2017-09-09] MEDS ORDERED: MAGNESIUM SULFATE 2 GRAM 2 GM/50 ML BAG IV ONE (05:08)
[2017-09-09] MEDS: CEFEPIME 1 GM in SODIUM CHLORIDE 0.9% MINIBAG 100 ML IV SCH ×3 (06:03→21:58)
[2017-09-09 06:18] LABS: ABG PCO2 29 mmHg (34-45); ABG PH 7.57 (7.35-7.45)
[2017-09-09 06:19] LABS: ABG BASE EXCESS 3.3 mmol/L (-2.0-3.0); ABG HCO3 25.4 mmol/L (22.0-26.0); ABG OXYGEN SATURATION 99 % (94-98); ABG TCO2 26.3 MMOL/L (21.0-29.0)
[2017-09-09 06:20] LABS: ABG O2 DEVICE VENTILATOR; ABG PO2 173 mmHg (80-100); ABG SATURATION PULSE OXIMETRY% 100 %; ABG SITE OF DRAW A-LINE
[2017-09-09 06:23] LABS: ABG MODE OF VENTILATION SIMV; ABG RESPIRATORY RATE 14 b/min
[2017-09-09 06:24] LABS: ABG PEAK END EXPIRATORY PRESSU 7 cmH2O; ABG PRESSURE SUPPORT VENT 10 cmH2O
[2017-09-09] MEDS: SODIUM CHLORIDE FLUSH 0.9% 10 ML SYRINGE IVP SCH ×3 (06:37→21:59)
[2017-09-09] MEDS: POTASSIUM CHLOR 20 MEQ/100 ML 20 MEQ/100 ML BAG IV SCH ×4 (06:42→11:21)
[2017-09-09] MEDS: SODIUM CHLORIDE 0.9% 1,000 ML IV SCH (07:45)
[2017-09-09] MEDS: PANTOPRAZOLE 40 MG VIAL IVP SCH ×2 (08:50→20:42)
[2017-09-09] MEDS: CHLORHEXIDINE GLUCONATE 15 ML UDC PO SCH ×2 (09:16→20:41)
[2017-09-09] MEDS: FUROSEMIDE 20 MG/2 ML VIAL IVP SCH ×2 (11:00→16:56)
[2017-09-09] MEDS ORDERED: FUROSEMIDE 20 MG/2 ML VIAL IVP SCH ×2 (11:00→18:00)
[2017-09-09] MEDS: VANCOMYCIN INJ 1 GM in SODIUM CHLORIDE 0.9% 250 ML IV SCH (11:45)
--- NOTE | 2017-09-09 12:08 | PROVIDER PROGRESS NOTE ---
Subjective - General Admit Date: 09/03/17 Procedure Date: 09/05/17 Post Op Days: 4 Procedure Performed: Relook with ileal resection, colon resection, ileocolostomy , end colostomy - Review of Systems Wound/Incisions: positive: Other (cloudy serous drainage from abdominal wound. + fibrinous exudate) Drain Type: 19 Fr Estevan Drain Output Description: Serous, slightly cloudy Approximate mls Output: 375/24 hours General: positive: No symptoms, Other (remains intubated. not following commands. Off propofol and now on Precedex. Narcotics held. Awake but not following commands.) - Other Other Information/Narrative: Underwent CT head and CTA chest yesterday: no intracranial abnormalities. No PE. Bilateral pleural effusions. Increased leukocytosis today, afebrile, blood and peritoneal cultures NTD. HH trending down. Objective - Patient Data Reviewed Vital Signs: Yes Vital Signs: Vital Signs x48h Temp Pulse Pulse Resp BP BP BP 09/09/17 12:00 37.3 C 112 H 26 H 106/67 127/71 09/09/17 11:20 113 H 09/09/17 10:59 37.7 C H 115 H 29 H 148/101 H 09/09/17 10:00 37.4 C 119 H 30 H 136/90 H 124/74 09/09/17 09:51 120/72 09/09/17 09:00 37.2 C 118 H 123 H 21 119/101 H 128/68 09/09/17 08:45 118 H 132/73 H 09/09/17 08:30 123 H 118/73 09/09/17 08:15 124 H 123/73 09/09/17 08:10 122 H 124/71 09/09/17 08:05 121 H 151/85 H 155/88 H 09/09/17 08:00 36.9 C 119 H 25 H 167/93 H 09/09/17 07:30 120 H 09/09/17 07:00 119 H 26 H 163/99 H 09/09/17 06:00 118 H 30 H 165/107 H 159/94 H 09/09/17 05:00 118 H 09/09/17 04:30 120 H 29 H 167/103 H 153/78 H Pulse Ox 09/09/17 12:00 100 09/09/17 11:20 09/09/17 10:59 100 09/09/17 10:00 99 09/09/17 09:51 09/09/17 09:00 99 09/09/17 08:45 09/09/17 08:30 09/09/17 08:15 09/09/17 08:10 09/09/17 08:05 09/09/17 08:00 98 09/09/17 07:30 09/09/17 07:00 100 09/09/17 06:00 100 09/09/17 05:00 09/09/17 04:30 97 Weight: Weight 09/07/17 09/08/17 09/09/17 23:59 23:59 23:59 Weight (kg) 61.5 kg 77 kg 77 kg Intake & Output: Intake and Output Totals x24h 09/07/17 09/08/17 09/09/17 23:59 23:59 23:59 Intake Total 3533.653 3375.579 2792.339 Output Total 2615 5010 3350 Balance 918.653 -1634.421 -557.661 - Lab Results Lab Results: 09/09/17 03:35 09/09/17 03:35 Other Lab Results: Lab Results x24hrs 09/09/17 09/09/17 09/09/17 Range/Units 11:41 06:11 05:55 WBC (4.8-10.8) x10^3/uL RBC (4.20-5.40) 10^6/uL Hgb (12.0-16.0) g/dL Hct (37.0-47.0) % MCV (81.0-99.0) fL MCH (27.0-31.0) pg MCHC (32.0-36.0) g/dL RDW (12.0-15.0) % Plt Count (130-450) 10^3/uL MPV (7.9-10.8) fL Neut # Lymph # [place] # Eos # Baso # Absolute Nucleated RBC Total Counted Band Neuts % (Manual) (0 - 10) % Abnorm Lymph % (Manual) % Myelocytes % ( - 0) % Nucleated RBC % Neutrophils # (Manual) (1.5-6.6) 10^3/uL Lymphocytes # (Manual) (1.5-3.5) 10^3/uL Monocytes # (Manual) (0.0-1.0) 10^3/uL Eosinophils # (Manual) (0-0.7) 10^3/uL Basophils # (Manual) (0-0.1) 10^3/uL Differential Comment WBC Morphology (NORMAL) Platelet Estimate (NORMAL) RBC Morph Micro Appear (NORMAL) Bld Gas Analysis Time 0555 Sample Site A-LINE ABG pH 7.57 H (7.35-7.45) ABG pCO2 29 L (34-45) mmHg ABG pO2 173 H* (80-100) mmHg ABG HCO3 25.4 (22.0-26.0) mmol/L ABG Total CO2 26.3 (21.0-29.0) MMOL/L ABG O2 Saturation 99 H (94-98) % ABG Oximetry Spot Check 100 % ABG Base Excess 3.3 H (-2.0-3.0) mmol/L Angel Luis Test NOT APPLICABLE Respiration Rate 14 b/min O2 Delivery Device VENTILATOR Vent Mode SIMV FiO2 30.00 Tidal Volume 450 mL PEEP 7 cmH2O Pressure Support Vent 10 cmH2O Sodium (135-145) mmol/L Potassium (3.5-5.0) mmol/L Chloride (101-111) mmol/L Carbon Dioxide (21-32) mmol/L Anion Gap (6-13) BUN (6-20) mg/dL Creatinine (0.4-1.0) mg/dL Estimated GFR (MDRD) (>89) Glucose (70-100) mg/dL POC Whole Bld Glucose 158 H 146 H (70 - 100) mg/dL Lactic Acid (0.5-2.2) mmol/L Calcium (8.5-10.3) mg/dL Magnesium (1.7-2.8) mg/dL Total Bilirubin (0.2-1.0) mg/dL AST (10-42) IU/L ALT (10-60) IU/L Alkaline Phosphatase (42-121) IU/L B-Natriuretic Peptide (5-100) pg/mL Total Protein (6.7-8.2) g/dL Albumin (3.2-5.5) g/dL Globulin (2.1-4.2) g/dL Albumin/Globulin Ratio (1.0-2.2) 09/09/17 09/09/17 09/09/17 Range/Units 03:35 03:35 03:35 WBC 13.1 H (4.8-10.8) x10^3/uL RBC 2.62 L (4.20-5.40) 10^6/uL Hgb 7.5 L (12.0-16.0) g/dL Hct 22.4 L (37.0-47.0) % MCV 85.4 (81.0-99.0) fL MCH 28.6 (27.0-31.0) pg MCHC 33.5 (32.0-36.0) g/dL RDW 16.1 H (12.0-15.0) % Plt Count 175 (130-450) 10^3/uL MPV 8.9 (7.9-10.8) fL Neut # Not Reportable Lymph # Not Reportable [place] # Not Reportable Eos # Not Reportable Baso # Not Reportable Absolute Nucleated RBC Not Reportable Total Counted 100 Band Neuts % (Manual) 7 (0 - 10) % Abnorm Lymph % (Manual) 0 % Myelocytes % 1 H ( - 0) % Nucleated RBC % Not Reportable Neutrophils # (Manual) 10.5 H (1.5-6.6) 10^3/uL Lymphocytes # (Manual) 1.7 (1.5-3.5) 10^3/uL Monocytes # (Manual) 0.5 (0.0-1.0) 10^3/uL Eosinophils # (Manual) 0.3 (0-0.7) 10^3/uL Basophils # (Manual) 0.0 (0-0.1) 10^3/uL Differential Comment MANUAL DIFFERENTIAL WBC Morphology 1+ TOXIC GRANULATION (NORMAL) Platelet Estimate NORMAL (130-450,000) (NORMAL) RBC Morph Micro Appear NORMAL APPEARANCE (NORMAL) Bld Gas Analysis Time Sample Site ABG pH (7.35-7.45) ABG pCO2 (34-45) mmHg ABG pO2 (80-100) mmHg ABG HCO3 (22.0-26.0) mmol/L ABG Total CO2 (21.0-29.0) MMOL/L ABG O2 Saturation (94-98) % ABG Oximetry Spot Check % ABG Base Excess (-2.0-3.0) mmol/L Angel Luis Test Respiration Rate b/min O2 Delivery Device Vent Mode FiO2 Tidal Volume mL PEEP cmH2O Pressure Support Vent cmH2O Sodium 145 (135-145) mmol/L Potassium 2.8 L (3.5-5.0) mmol/L Chloride 108 (101-111) mmol/L Carbon Dioxide 24 (21-32) mmol/L Anion Gap 13.0 (6-13) BUN 19 (6-20) mg/dL Creatinine 0.7 (0.4-1.0) mg/dL Estimated GFR (MDRD) 84 L (>89) Glucose 140 H (70-100) mg/dL POC Whole Bld Glucose (70 - 100) mg/dL Lactic Acid (0.5-2.2) mmol/L Calcium 8.0 L (8.5-10.3) mg/dL Magnesium 1.5 L (1.7-2.8) mg/dL Total Bilirubin 0.8 (0.2-1.0) mg/dL AST 53 H (10-42) IU/L ALT 64 H (10-60) IU/L Alkaline Phosphatase 80 (42-121) IU/L B-Natriuretic Peptide 3978 H (5-100) pg/mL Total Protein 5.1 L (6.7-8.2) g/dL Albumin 2.4 L (3.2-5.5) g/dL Globulin 2.7 (2.1-4.2) g/dL Albumin/Globulin Ratio 0.9 L (1.0-2.2) 09/09/17 09/08/17 09/08/17 Range/Units 03:35 23:15 20:35 WBC (4.8-10.8) x10^3/uL RBC (4.20-5.40) 10^6/uL Hgb (12.0-16.0) g/dL Hct (37.0-47.0) % MCV (81.0-99.0) fL MCH (27.0-31.0) pg MCHC (32.0-36.0) g/dL RDW (12.0-15.0) % Plt Count (130-450) 10^3/uL MPV (7.9-10.8) fL Neut # Lymph # [place] # Eos # Baso # Absolute Nucleated RBC Total Counted Band Neuts % (Manual) (0 - 10) % Abnorm Lymph % (Manual) % Myelocytes % ( - 0) % Nucleated RBC % Neutrophils # (Manual) (1.5-6.6) 10^3/uL Lymphocytes # (Manual) (1.5-3.5) 10^3/uL Monocytes # (Manual) (0.0-1.0) 10^3/uL Eosinophils # (Manual) (0-0.7) 10^3/uL Basophils # (Manual) (0-0.1) 10^3/uL Differential Comment WBC Morphology (NORMAL) Platelet Estimate (NORMAL) RBC Morph Micro Appear (NORMAL) Bld Gas Analysis Time 2037 Sample Site A-LINE ABG pH 7.59 H (7.35-7.45) ABG pCO2 31 L (34-45) mmHg ABG pO2 159 H* (80-100) mmHg ABG HCO3 29.3 H (22.0-26.0) mmol/L ABG Total CO2 30.0 H (21.0-29.0) MMOL/L ABG O2 Saturation 100 H (94-98) % ABG Oximetry Spot Check 100 % ABG Base Excess 7.0 H (-2.0-3.0) mmol/L Angel Luis Test NOT APPLICABLE Respiration Rate 14 b/min O2 Delivery Device VENTILATOR Vent Mode SIMV FiO2 50.00 Tidal Volume 450 mL PEEP 7 cmH2O Pressure Support Vent 10 cmH2O Sodium (135-145) mmol/L Potassium (3.5-5.0) mmol/L Chloride (101-111) mmol/L Carbon Dioxide (21-32) mmol/L Anion Gap (6-13) BUN (6-20) mg/dL Creatinine (0.4-1.0) mg/dL Estimated GFR (MDRD) (>89) Glucose (70-100) mg/dL POC Whole Bld Glucose 158 H (70 - 100) mg/dL Lactic Acid 1.2 (0.5-2.2) mmol/L Calcium (8.5-10.3) mg/dL Magnesium (1.7-2.8) mg/dL Total Bilirubin (0.2-1.0) mg/dL AST (10-42) IU/L ALT (10-60) IU/L Alkaline Phosphatase (42-121) IU/L B-Natriuretic Peptide (5-100) pg/mL Total Protein (6.7-8.2) g/dL Albumin (3.2-5.5) g/dL Globulin (2.1-4.2) g/dL Albumin/Globulin Ratio (1.0-2.2) 09/08/17 Range/Units 17:45 WBC (4.8-10.8) x10^3/uL RBC (4.20-5.40) 10^6/uL Hgb (12.0-16.0) g/dL Hct (37.0-47.0) % MCV (81.0-99.0) fL MCH (27.0-31.0) pg MCHC (32.0-36.0) g/dL RDW (12.0-15.0) % Plt Count (130-450) 10^3/uL MPV (7.9-10.8) fL Neut # Lymph # [place] # Eos # Baso # Absolute Nucleated RBC Total Counted Band Neuts % (Manual) (0 - 10) % Abnorm Lymph % (Manual) % Myelocytes % ( - 0) % Nucleated RBC % Neutrophils # (Manual) (1.5-6.6) 10^3/uL Lymphocytes # (Manual) (1.5-3.5) 10^3/uL Monocytes # (Manual) (0.0-1.0) 10^3/uL Eosinophils # (Manual) (0-0.7) 10^3/uL Basophils # (Manual) (0-0.1) 10^3/uL Differential Comment WBC Morphology (NORMAL) Platelet Estimate (NORMAL) RBC Morph Micro Appear (NORMAL) Bld Gas Analysis Time Sample Site ABG pH (7.35-7.45) ABG pCO2 (34-45) mmHg ABG pO2 (80-100) mmHg ABG HCO3 (22.0-26.0) mmol/L ABG Total CO2 (21.0-29.0) MMOL/L ABG O2 Saturation (94-98) % ABG Oximetry Spot Check % ABG Base Excess (-2.0-3.0) mmol/L Angel Luis Test Respiration Rate b/min O2 Delivery Device Vent Mode FiO2 Tidal Volume mL PEEP cmH2O Pressure Support Vent cmH2O Sodium (135-145) mmol/L Potassium (3.5-5.0) mmol/L Chloride (101-111) mmol/L Carbon Dioxide (21-32) mmol/L Anion Gap (6-13) BUN (6-20) mg/dL Creatinine (0.4-1.0) mg/dL Estimated GFR (MDRD) (>89) Glucose (70-100) mg/dL POC Whole Bld Glucose 150 H (70 - 100) mg/dL Lactic Acid (0.5-2.2) mmol/L Calcium (8.5-10.3) mg/dL Magnesium (1.7-2.8) mg/dL Total Bilirubin (0.2-1.0) mg/dL AST (10-42) IU/L ALT (10-60) IU/L Alkaline Phosphatase (42-121) IU/L B-Natriuretic Peptide (5-100) pg/mL Total Protein (6.7-8.2) g/dL Albumin (3.2-5.5) g/dL Globulin (2.1-4.2) g/dL Albumin/Globulin Ratio (1.0-2.2) - Current Medications Current Medications: Current Medications Generic Name Dose Route Start Last Admin Trade Name Freq PRN Reason Stop Dose Admin Chlorhexidine Gluconate 15 ml 09/06/17 09:00 09/09/17 09:16 Peridex PO 15 ml BID AMNA Administration Furosemide 20 mg 09/09/17 11:00 09/09/17 11:00 Lasix Inj 20mg Vial IVP 20 mg BIDDIURETIC AMNA Administration Hydralazine HCl 20 mg 09/09/17 10:00 09/09/17 09:51 Apresoline Inj IVP Not Given Q12H AMNA Cefepime HCl 1 gm/ Sodium 100 mls @ 200 mls/hr 09/04/17 19:00 09/09/17 06:38 Chloride IV 09/14/17 23:55 Infused TID AMNA Infusion Acetaminophen 100 mls @ 400 mls/hr 09/05/17 21:00 09/09/17 09:15 Ofirmev IV Infused Q6H AMNA Infusion Multivitamins 10 ml/ Amino Ac/ 2,010 mls @ 83 mls/hr 09/07/17 19:00 09/09/17 11:00 Electrol/Dextrose/Calcium IV 83 mls/hr Q24H AMNA Infusion Protocol Fat Emulsion Intravenous 250 mls @ 21 mls/hr 09/07/17 19:00 09/09/17 08:35 Intralipid 20% IV Infused Q24H AMNA Infusion Chromium/Copper/Manganese/ 102.48 mls @ 4.27 mls/hr 09/07/17 19:00 09/09/17 11:00 Seleni/Zn 1 ml/ Magnesium IV 4.2 mls/hr Sulfate 0.74 gm/ Sodium Q24H AMNA Infusion Chloride Potassium Phosphate 12 mmol/ 104.1 mls @ 4.338 mls/hr 09/07/17 19:00 11:00 Insulin Human Regular 10 unit/ IV 4.3 mls/hr Sodium Chloride Q24H AMNA Infusion Sodium Chloride 1,000 mls @ 0 mls/hr 09/08/17 19:00 09/09/17 11:00 Normal Saline 0.9% IV 15 mls/hr .Q0M AMNA Infusion TKO Dexmedetomidine/Sodium Chloride 100 mls @ 3.85 mls/hr 09/08/17 23:45 11:00 Precedex Premix IV 0.9 mcg/kg/hr .[id number] AMNA 17.325 mls/hr 0.2 MCG/KG/HR Titration Potassium Chloride 20 meq in 100 mls @ 50 mls/hr 09/09/17 06:00 09/09/17 11: 21 Potassium Chloride IV 09/09/17 13:59 50 mls/hr Q2H AMNA Administration Protocol Vancomycin HCl 1 gm/ Sodium 250 mls @ 166.667 mls/hr 09/09/17 12:00 09/09/17 11:45 Chloride IV 166.667 mls/hr Q12H AMNA Administration Ketorolac Tromethamine 30 mg 09/08/17 00:01 09/09/17 01:11 Toradol Inj IVP 09/13/17 00:00 30 mg Q6HR PRN Administration Pain or T>100.4 Ondansetron HCl 4 mg 09/03/17 20:35 09/08/17 22:17 Zofran Inj IVP 4 mg Q6HR PRN Administration Nausea / Vomiting Pantoprazole Sodium 40 mg 09/04/17 21:00 09/09/17 08:50 Protonix IVP 40 mg BID AMNA Administration Prochlorperazine Edisylate 10 mg 09/03/17 20:35 09/08/17 22:11 Compazine Inj IVP 10 mg Q6HR PRN Administration Nausea / Vomiting Sodium Chloride 10 ml 09/05/17 22:00 09/09/17 06:37 Normal Saline Flush 0.9% IVP 10 ml Q8HR AMNA Administration Sodium Chloride 10 ml 09/05/17 19:08 09/09/17 08:50 Normal Saline Flush 0.9% IVP 10 ml PRN PRN Administration NEEDED PER PROVIDER ORDERS Sodium Chloride 3 ml 09/06/17 09:49 09/09/17 00:55 Normal Saline INH 3 ml Q3H PRN Administration NEEDED PER PROVIDER ORDERS - Physical Exam Wound/Incisions: positive: Other (+ cloudy serous drainage. + fibrinous exudates ) General Appearance: positive: Other (non-purposeful movements.) Respiratory: positive: Other (remains intubated on SIMV) Cardiovascular: positive: Tachycardia, Other Abdomen: positive: Other (stoma pink with very minimal liquid stool. Abdomen soft and non-distended, Non-tender to palpation) Extremities: positive: Pedal edema Impression/Plan - Problem List Problem List: 1. increased Leukocytosis: Patient has remained afebrile with NTD abdominal fluid and blood. Will continue to monitor. IF patient spikes fever will require re-culture including from central line and urine. Add Flagyl for anaerobic coverage. 2. Unable to extubate patient due to patient not following commands. Recommend weaning sedation and performing spontaneous breathing trial. Medical team planning to diurese prior to extubating. Strongly recommend working towards extubation as soon as possible. 3. HH trending down. Transfuse 1 U PRBC 4. Gaspar for UOP monitoring 5. Continue TPN. Consider tube feeds once ostomy starts functioning.
[2017-09-09] MEDS: metroNIDAZOLE 500 MG/100 ML 500 MG/100 ML BAG IV SCH ×2 (13:15→17:25)
--- NOTE | 2017-09-09 18:16 | PROVIDER PROGRESS NOTE ---
Assessment/Plan - Problem List (1) Perforated sigmoid colon Assessment/Plan: WBCs elevated slightly. Continue present care. (2) S/P laparotomy Assessment/Plan: Plan as per surgeon. No oral feeds til ng tube out, possibly tomorrow. (3) Peritonitis (acute) generalized Assessment/Plan: Abd exam stable. Flagyl added by surgeon. Continue present meds and plan. (4) Anasarca Assessment/Plan: BNP >3000 today. K 2.8. Will start diuresis with Lasix iv bid today. Correct hypokalemia. Follow electrolytes, Mg and BUN/creat. (5) Anemia Assessment/Plan: JHeme pos stool today. PRBC transfusion ordered by surgeon. Will continue to folllow H/H. Pt already on iv H2 [place] for stress ulcer prophylaxis (6) Hypoxia Assessment/Plan: Lasix iv started today, after chest imaging showed bilateral pleural effusions. Pt was able to be extubated today. Continue good pulmonary toilet. (7) Altered mental status Qualifiers: Altered mental status type: unspecified Qualified Code(s): R41.82 - Altered mental status, unspecified Assessment/Plan: Improved. Pt off all sedatives. (8) Septic shock Assessment/Plan: Resolved. - Current Meds Current Meds: Current Medications Generic Name Dose Route Start Last Admin Trade Name Freq PRN Reason Stop Dose Admin Chlorhexidine Gluconate 15 ml 09/06/17 09:00 09/09/17 09:16 Peridex PO 15 ml BID AMNA Administration Furosemide 20 mg 09/09/17 11:00 09/09/17 16:56 Lasix Inj 20mg Vial IVP 20 mg BIDDIURETIC AMNA Administration Furosemide 20 mg 09/09/17 18:00 09/09/17 16:57 Lasix Inj 20mg Vial IVP 09/09/17 20:00 Not Given ONCE AMNA Hydralazine HCl 20 mg 09/09/17 10:00 09/09/17 09:51 Apresoline Inj IVP Not Given Q12H AMNA Cefepime HCl 1 gm/ Sodium 100 mls @ 200 mls/hr 09/04/17 19:00 09/09/17 15:10 Chloride IV 09/14/17 23:55 Infused TID AMNA Infusion Acetaminophen 100 mls @ 400 mls/hr 09/05/17 21:00 09/09/17 15:30 Ofirmev IV Infused Q6H AMNA Infusion Multivitamins 10 ml/ Amino Ac/ 2,010 mls @ 83 mls/hr 09/07/17 19:00 09/09/17 18:00 Electrol/Dextrose/Calcium IV 83 mls/hr Q24H AMNA Infusion Protocol Fat Emulsion Intravenous 250 mls @ 21 mls/hr 09/07/17 19:00 09/09/17 08:35 Intralipid 20% IV Infused Q24H AMNA Infusion Chromium/Copper/Manganese/ 102.48 mls @ 4.27 mls/hr 09/07/17 19:00 09/09/17 18:00 Seleni/Zn 1 ml/ Magnesium IV 4.2 mls/hr Sulfate 0.74 gm/ Sodium Q24H AMNA Infusion Chloride Potassium Phosphate 12 mmol/ 104.1 mls @ 4.338 mls/hr 09/07/17 19:00 18:00 Insulin Human Regular 10 unit/ IV 4.3 mls/hr Sodium Chloride Q24H AMNA Infusion Sodium Chloride 1,000 mls @ 0 mls/hr 09/08/17 19:00 09/09/17 18:00 Normal Saline 0.9% IV 20 mls/hr .Q0M AMNA Infusion TKO Dexmedetomidine/Sodium Chloride 100 mls @ 3.85 mls/hr 09/08/17 23:45 14:35 Precedex Premix IV Infused .[id number] AMNA Titration 0.2 MCG/KG/HR Vancomycin HCl 1 gm/ Sodium 250 mls @ 166.667 mls/hr 09/09/17 12:00 09/09/17 13:20 Chloride IV Infused Q12H AMNA Infusion Metronidazole 500 mg in 100 mls @ 100 mls/hr 09/09/17 13:00 09/09/17 18:00 Flagyl 500 Mg/100 Ml IV 100 mls/hr Q6HR AMNA Infusion Ketorolac Tromethamine 30 mg 09/08/17 00:01 09/09/17 01:11 Toradol Inj IVP 09/13/17 00:00 30 mg Q6HR PRN Administration Pain or T>100.4 Ondansetron HCl 4 mg 09/03/17 20:35 09/08/17 22:17 Zofran Inj IVP 4 mg Q6HR PRN Administration Nausea / Vomiting Pantoprazole Sodium 40 mg 09/04/17 21:00 09/09/17 08:50 Protonix IVP 40 mg BID AMNA Administration Prochlorperazine Edisylate 10 mg 09/03/17 20:35 09/08/17 22:11 Compazine Inj IVP 10 mg Q6HR PRN Administration Nausea / Vomiting Sodium Chloride 10 ml 09/05/17 22:00 09/09/17 14:17 Normal Saline Flush 0.9% IVP 10 ml Q8HR AMNA Administration Sodium Chloride 10 ml 09/05/17 19:08 09/09/17 16:57 Normal Saline Flush 0.9% IVP 10 ml PRN PRN Administration NEEDED PER PROVIDER ORDERS Sodium Chloride 3 ml 09/06/17 09:49 09/09/17 00:55 Normal Saline INH 3 ml Q3H PRN Administration NEEDED PER PROVIDER ORDERS - Lab Result Fish Bone Diagrams: 09/09/17 03:35 09/09/17 03:35 - Additional Planning My Orders: My Active Orders 09/08/17 19:00 Sodium Chloride 0.9% [Normal Saline 0.9%] 1,000 ml IV TKO 09/09/17 10:00 hydrALAZINE INJ [Apresoline Inj] 20 mg IVP Q12H 09/09/17 11:00 FUROSEMIDE INJ 20mg VIAL [LASIX INJ 20mg VIAL] 20 mg IVP BIDDIURETIC Subjective - Subjective Patient Reports: Feeling Better, Other (Pt speaking after extubation this afternoon, claims no pain.) Nursing Reports: Other (This am Pt was groggy but followed commands Precedex stopped, RT placed on CPAP and she had good weaning parameters and she was extuibated successfully. Now breathing O2 per n.c. and appears comfortable.) Objective Vital Signs: Vital Signs - 24 hr 09/08/17 09/08/17 09/08/17 19:00 20:00 21:00 Temperature 37.2 C 37.0 C Heart Rate 116 H 110 H Heart Rate [ 114 H 110 H 111 H Monitoring electrodes] Respiratory 32 H 28 H 21 Rate Blood Pressure Blood Pressure 119/80 161/100 H [Right Brachial artery] Blood Pressure 153/80 H 152/71 H 201/88 H [Right Radial artery] O2 Saturation 91 L 99 100 12/06/1709/08/17 09/08/17 21:05 22:00 22:57 Temperature 37.3 C Heart Rate 109 H Heart Rate [ 103 H Monitoring electrodes] Respiratory 29 H Rate Blood Pressure Blood Pressure 108/73 [Right Brachial artery] Blood Pressure 100/52 L [Right Radial artery] O2 Saturation 96 09/08/17 09/09/17 09/09/17 23:00 00:00 01:00 Temperature Heart Rate 116 H 120 H Heart Rate [ 117 H 116 H 120 H Monitoring electrodes] Respiratory 29 H 30 H 33 H Rate Blood Pressure Blood Pressure 156/96 H 168/105 H 118/79 [Right Brachial artery] Blood Pressure 163/87 H 145/81 H 129/74 [Right Radial artery] O2 Saturation 96 96 97 09/09/17 09/09/17 09/09/17 02:00 03:00 04:00 Temperature 37.7 C H Heart Rate 122 H Heart Rate [ 115 H 122 H 120 H Monitoring electrodes] Respiratory 18 29 H 26 H Rate Blood Pressure Blood Pressure 123/77 174/107 H 145/108 H [Right Brachial artery] Blood Pressure 115/68 177/92 H 149/77 H [Right Radial artery] O2 Saturation 98 98 96 09/09/17 09/09/17 09/09/17 04:30 05:00 06:00 Temperature Heart Rate 118 H Heart Rate [ 120 H 118 H Monitoring electrodes] Respiratory 29 H 30 H Rate Blood Pressure Blood Pressure 167/103 H 165/107 H [Right Brachial artery] Blood Pressure 153/78 H 159/94 H [Right Radial artery] O2 Saturation 97 100 09/09/17 09/09/17 09/09/17 07:00 07:30 08:00 Temperature 36.9 C Heart Rate 120 H Heart Rate [ 119 H 119 H Monitoring electrodes] Respiratory 26 H 25 H Rate Blood Pressure Blood Pressure [Right Brachial artery] Blood Pressure 163/99 H 167/93 H [Right Radial artery] O2 Saturation 100 98 09/09/17 09/09/17 09/09/17 08:05 08:10 08:15 Temperature Heart Rate Heart Rate [ 121 H 122 H 124 H Monitoring electrodes] Respiratory Rate Blood Pressure 151/85 H Blood Pressure 124/71 [Right Brachial artery] Blood Pressure 155/88 H 123/73 [Right Radial artery] O2 Saturation 09/09/17 09/09/17 09/09/17 08:30 08:45 09:00 Temperature 37.2 C Heart Rate 118 H Heart Rate [ 123 H 118 H 123 H Monitoring electrodes] Respiratory 21 Rate Blood Pressure Blood Pressure 119/101 H [Right Brachial artery] Blood Pressure 118/73 132/73 H 128/68 [Right Radial artery] O2 Saturation 99 09/09/17 09/09/17 09/09/17 09:51 10:00 10:59 Temperature 37.4 C 37.7 C H Heart Rate Heart Rate [ 119 H 115 H Monitoring electrodes] Respiratory 30 H 29 H Rate Blood Pressure 120/72 Blood Pressure 136/90 H [Right Brachial artery] Blood Pressure 124/74 148/101 H [Right Radial artery] O2 Saturation 99 100 09/09/17 09/09/17 09/09/17 11:20 12:00 13:02 Temperature 37.3 C 37.2 C Heart Rate 113 H Heart Rate [ 112 H 107 H Monitoring electrodes] Respiratory 26 H 24 Rate Blood Pressure Blood Pressure 106/67 [Right Brachial artery] Blood Pressure 127/71 125/87 H [Right Radial artery] O2 Saturation 100 100 09/09/17 09/09/17 09/09/17 13:15 13:54 14:03 Temperature 37.3 C 37.3 C Heart Rate 107 H 112 H Heart Rate [ 115 H Monitoring electrodes] Respiratory 25 H 30 H Rate Blood Pressure 146/80 H Blood Pressure [Right Brachial artery] Blood Pressure 154/92 H [Right Radial artery] O2 Saturation 95 09/09/17 09/09/17 09/09/17 14:17 14:27 15:05 Temperature 37.7 C H 37.7 C H 37.4 C Heart Rate 109 H 108 H Heart Rate [ 111 H Monitoring electrodes] Respiratory 27 H 30 H 30 H Rate Blood Pressure 165/89 H 153/85 H Blood Pressure [Right Brachial artery] Blood Pressure 161/102 H [Right Radial artery] O2 Saturation 96 09/09/17 09/09/17 09/09/17 16:00 16:45 17:00 Temperature 37.2 C 37.2 C 37.2 C Heart Rate 112 H Heart Rate [ 112 H 110 H Monitoring electrodes] Respiratory 26 H 30 H 26 H Rate Blood Pressure 182/101 H Blood Pressure 179/98 H 182/101 H [Right Brachial artery] Blood Pressure 205/96 H 216/103 H [Right Radial artery] O2 Saturation 100 100 09/09/17 18:00 Temperature 36.8 C Heart Rate Heart Rate [ 116 H Monitoring electrodes] Respiratory 28 H Rate Blood Pressure Blood Pressure 183/116 H [Right Brachial artery] Blood Pressure 214/98 H [Right Radial artery] O2 Saturation 97 Oxygen O2 Source Room air I&O (Last 24 Hrs): Intake and Output Totals x24h 09/07/17 09/08/17 09/09/17 23:59 23:59 23:59 Intake Total 3533.653 3375.579 4641.229 Output Total 2615 5010 5665 Balance 918.653 -6654.421 -1023.771 General: Alert HEENT: Mucous membr. moist/pink Neck: Supple, No JVD Neuro: Other (Moving all extremities. Able to carry on a coversation, smiles.) Cardiovascular: Regular rate Respiratory: No respiratory distress Abdomen: Soft, Other (Drain has scant pink fluid) Extremities: Other (1+ edema) - Results Results: Laboratory Results WBC 13.1 x10^3/uL (4.8-10.8) H 09/09/17 03:35 RBC 2.62 10^6/uL (4.20-5.40) L 09/09/17 03:35 Hgb 7.5 g/dL (12.0-16.0) L 09/09/17 03:35 Hct 22.4 % (37.0-47.0) L 09/09/17 03:35 MCV 85.4 fL (81.0-99.0) 09/09/17 03:35 MCH 28.6 pg (27.0-31.0) 09/09/17 03:35 MCHC 33.5 g/dL (32.0-36.0) 09/09/17 03:35 RDW 16.1 % (12.0-15.0) H 09/09/17 03:35 Plt Count 175 10^3/uL (130-450) 09/09/17 03:35 MPV 8.9 fL (7.9-10.8) 09/09/17 03:35 Neut # Not Reportable 09/09/17 03:35 Lymph # Not Reportable 09/09/17 03:35 [place] # Not Reportable 09/09/17 03:35 Eos # Not Reportable 09/09/17 03:35 Baso # Not Reportable 09/09/17 03:35 Absolute Nucleated RBC Not Reportable 09/09/17 03:35 Total Counted 100 09/09/17 03:35 Band Neuts % (Manual) 7 % (0-10) 09/09/17 03:35 Reactive Lymphs % (Man) 15 % 09/05/17 04:35 Abnorm Lymph % (Manual) 0 % 09/09/17 03:35 Metamyelocytes % 2 % (-0) H 09/05/17 19:33 Myelocytes % 1 % (-0) H 09/09/17 03:35 Nucleated RBC % Not Reportable 09/09/17 03:35 Neutrophils # (Manual) 10.5 10^3/uL (1.5-6.6) H 09/09/17 03:35 Lymphocytes # (Manual) 1.7 10^3/uL (1.5-3.5) 09/09/17 03:35 Monocytes # (Manual) 0.5 10^3/uL (0.0-1.0) 09/09/17 03:35 Eosinophils # (Manual) 0.3 10^3/uL (0-0.7) 09/09/17 03:35 Basophils # (Manual) 0.0 10^3/uL (0-0.1) 09/09/17 03:35 Nucleated RBCs 1 % 09/08/17 05:20 Differential Comment MANUAL DIFFERENTIAL 09/09/17 03:35 Manual Slide Review Indicated 09/05/17 19:33 WBC Morphology 1+ DOHLE BODIES (NORMAL) 2+ TOXIC GRANULATION (NORMAL) 09/05 19:33 WBC Morphology 1+ TOXIC GRANULATION (NORMAL) 09/09/17 03:35 Platelet Estimate NORMAL (130-450,000) (NORMAL) 09/09/17 03:35 Platelet Morphology NORMAL APPEARANCE (NORMAL) 09/05/17 19:33 RBC Morph Micro Appear NORMAL APPEARANCE (NORMAL) 09/09/17 03:35 PT 13.3 secs (9.9-12.6) H 09/08/17 05:20 INR 1.2 (0.8-1.2) 09/08/17 05:20 Bld Gas Analysis Time 0555 09/09/17 05:55 Sample Site A-LINE 09/09/17 05:55 ABG pH 7.57 (7.35-7.45) H 09/09/17 05:55 ABG pCO2 29 mmHg (34-45) L 09/09/17 05:55 ABG pO2 173 mmHg (80-100) H* 09/09/17 05:55 ABG HCO3 25.4 mmol/L (22.0-26.0) 09/09/17 05:55 ABG Total CO2 26.3 MMOL/L (21.0-29.0) 09/09/17 05:55 ABG O2 Saturation 99 % (94-98) H 09/09/17 05:55 ABG Oximetry Spot Check 100 % 09/09/17 05:55 ABG Base Excess 3.3 mmol/L (-2.0-3.0) H 09/09/17 05:55 Angel Luis Test NOT APPLICABLE 09/09/17 05:55 Respiration Rate 14 b/min 09/09/17 05:55 O2 Delivery Device VENTILATOR 09/09/17 05:55 Vent Mode SIMV 09/09/17 05:55 FiO2 30.00 09/09/17 05:55 Tidal Volume 450 mL 09/09/17 05:55 PEEP 7 cmH2O 09/09/17 05:55 Pressure Support Vent 10 cmH2O 09/09/17 05:55 Sodium 145 mmol/L (135-145) 09/09/17 03:35 Potassium 2.8 mmol/L (3.5-5.0) L 09/09/17 03:35 Chloride 108 mmol/L (101-111) 09/09/17 03:35 Carbon Dioxide 24 mmol/L (21-32) 09/09/17 03:35 Anion Gap 13.0 (6-13) 09/09/17 03:35 BUN 19 mg/dL (6-20) 09/09/17 03:35 Creatinine 0.7 mg/dL (0.4-1.0) 09/09/17 03:35 Estimated GFR (MDRD) 84 (>89) L 09/09/17 03:35 Glucose 140 mg/dL (70-100) H 09/09/17 03:35 POC Whole Bld Glucose 160 mg/dL (70 - 100) H 09/09/17 16:36 Glycated Hemoglobin 5.8 % (4.6-6.2) 09/04/17 05:45 Estim Average Glucose 120 (70-100) H 09/04/17 05:45 Lactic Acid 1.2 mmol/L (0.5-2.2) 09/09/17 03:35 Calcium 8.0 mg/dL (8.5-10.3) L 09/09/17 03:35 Ionized Calcium NO 09/03/17 21:48 Phosphorus 2.8 mg/dL (2.5-4.6) 09/08/17 05:20 Magnesium 1.5 mg/dL (1.7-2.8) L 09/09/17 03:35 Total Bilirubin 0.8 mg/dL (0.2-1.0) 09/09/17 03:35 AST 53 IU/L (10-42) H 09/09/17 03:35 ALT 64 IU/L (10-60) H 09/09/17 03:35 Alkaline Phosphatase 80 IU/L (42-121) 09/09/17 03:35 Troponin I 0.09 ng/mL (<0.49) 09/05/17 12:25 B-Natriuretic Peptide 3978 pg/mL (5-100) H 09/09/17 03:35 Total Protein 5.1 g/dL (6.7-8.2) L 09/09/17 03:35 Albumin 2.4 g/dL (3.2-5.5) L 09/09/17 03:35 Globulin 2.7 g/dL (2.1-4.2) 09/09/17 03:35 Albumin/Globulin Ratio 0.9 (1.0-2.2) L 09/09/17 03:35 Prealbumin 10 mg/dL (18-45) L 09/08/17 05:20 Triglycerides 256 mg/dL (-149) H 09/08/17 05:20 Lipase 13 U/L (22-51) L 09/03/17 16:07 Urine Color YELLOW 09/08/17 00:10 Urine Clarity CLEAR (CLEAR) 09/08/17 00:10 Urine pH 6.0 PH (5.0-7.5) 09/08/17 00:10 Ur Specific [place] 1.020 (1.002-1.030) 09/08/17 00:10 Urine Protein TRACE mg/dL (NEGATIVE) 09/08/17 00:10 Urine Glucose (UA) NEGATIVE mg/dL (NEGATIVE) 09/08/17 00:10 Urine Ketones NEGATIVE mg/dL (NEGATIVE) 09/08/17 00:10 Urine Occult Blood NEGATIVE (NEGATIVE) 09/08/17 00:10 Urine Nitrite NEGATIVE (NEGATIVE) 09/08/17 00:10 Urine Bilirubin NEGATIVE (NEGATIVE) 09/08/17 00:10 Urine Urobilinogen 0.2 (NORMAL) E.U./dL (NORMAL) 09/08/17 00:10 Ur Leukocyte Esterase NEGATIVE (NEGATIVE) 09/08/17 00:10 Urine RBC None Seen /HPF (0-5) 09/03/17 22:19 Urine WBC 0-3 /HPF (0-5) 09/03/17 22:19 Ur Squamous Epith Cells FEW Squamous (<= Few) 09/03/17 22:19 Urine Bacteria None Seen /HPF (None Seen) 09/03/17 22:19 Urine Casts >50 Hyaline Casts /LPF0-2 Fine Granular /LPF 09/03/17 22:19 Urine Casts >50 Hyaline Casts /LPF0-2 Fine Granular /LPF 09/03/17 22:19 Ur Microscopic Review NOT INDICATED 09/08/17 00:10 Urine Culture Comments NOT INDICATED 09/08/17 00:10 Blood Type O NEGATIVE 09/09/17 12:32 Blood Type Recheck O NEGATIVE 09/09/17 03:55 Antibody Screen NEGATIVE 09/09/17 12:32 Crossmatch IS Only See Detail 09/09/17 12:32
[2017-09-09] MEDS: FAT EMULSION 20% 250 ML IV SCH (18:45)
[2017-09-09] MEDS: [UNRECOGNIZED DRUG - OTHER] IV SCH (18:47)
[2017-09-09] MEDS: POTASSIUM PHOSPHATE IV SCH (18:47)
[2017-09-09] MEDS: INSULIN REGULAR HUMAN IV SCH (18:47)
[2017-09-09] MEDS: [UNRECOGNIZED DRUG - OTHER] IV SCH (18:47)
[2017-09-09] MEDS: TPN (CLINIMIX E 5/15) 2,000 ML with MULTIVITAMIN 10 ML IV SCH ×2 (18:47)
[2017-09-09] MEDS: MAGNESIUM SULFATE IV SCH (18:47)
[2017-09-09] MEDS: TRACE ELEMENTS V IV SCH (18:47)
[2017-09-09] MEDS: diphenhydrAMINE INJ 50 MG/ML VIAL IVP PRN (20:42)
[2017-09-09] MEDS: FUROSEMIDE 40 MG/4 ML VIAL IVP SCH (20:42)
[2017-09-09] MEDS: METOPROLOL 5 MG/5 ML VIAL IVP PRN (22:33)
[2017-09-10] MEDS: ONDANSETRON 4 MG/2 ML VIAL IVP PRN (00:02)
[2017-09-10] MEDS: VANCOMYCIN INJ 1 GM in SODIUM CHLORIDE 0.9% 250 ML IV SCH (00:02)
[2017-09-10] MEDS: KETOROLAC 30 MG/ML VIAL IVP PRN (01:01)
[2017-09-10] MEDS: ACETAMINOPHEN 1,000 MG/100 ML 100 ML IV SCH ×4 (03:01→20:33)
[2017-09-10 03:37] LABS: ALBUMIN/GLOBULIN RATIO 0.8 (1.0-2.2); BILIRUBIN,TOTAL 0.7 mg/dL (0.2-1.0); CALCIUM 8.1 mg/dL (8.5-10.3); CREATININE 0.6 mg/dL (0.4-1.0); MAGNESIUM 1.4 mg/dL (1.7-2.8); PHOSPHORUS 4.4 mg/dL (2.5-4.6); POTASSIUM 2.7 mmol/L (3.5-5.0); TOTAL PROTEIN 5.9 g/dL (6.7-8.2)
[2017-09-10 04:02] LABS: BASOPHILS % (AUTO) 0.2 %; EOSINOPHILS # (AUTO) 0.1 10^3/uL (0.0-0.7); EOSINOPHILS % (AUTO) 0.8 %; HCT - HEMATOCRIT 27.4 % (37.0-47.0); HGB - HEMOGLOBIN 9.6 g/dL (12.0-16.0); LYMPHOCYTES # (AUTO) 1.9 10^3/uL (1.5-3.5); LYMPHOCYTES % (AUTO) 13.1 %; MEAN CORPUSCULAR HEMOGLOBIN 29.3 pg (27.0-31.0); MEAN CORPUSCULAR VOLUME 83.7 fL (81.0-99.0); MONOCYTES % (AUTO) 7.1 %; NEUTROPHILS # (AUTO) 11.5 10^3/uL (1.5-6.6); NEUTROPHILS % (AUTO) 78.8 %; RED BLOOD COUNT 3.28 10^6/uL (4.20-5.40); RED CELL DISTRIBUTION WIDTH 15.2 % (12.0-15.0); UNCORRECTED WHITE BLOOD COUNT 14.6 x10^3/uL; WHITE BLOOD COUNT 14.6 x10^3/uL (4.8-10.8)
[2017-09-10] MEDS ORDERED: MAGNESIUM SULFATE 2 GRAM 2 GM/50 ML BAG IV SCH ×2 (04:23→12:00)
[2017-09-10 04:53] LABS: PLATELET ESTIMATE, MANUAL NORMAL (130-450,000) (NORMAL); PLATELET MORPHOLOGY NORMAL APPEARANCE (NORMAL)
[2017-09-10 04:54] LABS: NP AUTO DIFFERENTIAL? NO; NP MAN DIFFERENTIAL? YES
[2017-09-10] MEDS: POTASSIUM CHLOR 20 MEQ/100 ML 20 MEQ/100 ML BAG IV SCH ×6 (05:09→13:06)
[2017-09-10] MEDS: CEFEPIME 1 GM in SODIUM CHLORIDE 0.9% MINIBAG 100 ML IV SCH ×3 (06:10→22:16)
[2017-09-10] MEDS: SODIUM CHLORIDE FLUSH 0.9% 10 ML SYRINGE IVP SCH ×3 (06:11→22:41)
[2017-09-10] MEDS: METOPROLOL 5 MG/5 ML VIAL IVP PRN ×2 (07:37→17:00)
[2017-09-10] MEDS: PANTOPRAZOLE 40 MG VIAL IVP SCH ×2 (08:32→20:59)
[2017-09-10] MEDS: CHLORHEXIDINE GLUCONATE 15 ML UDC PO SCH (08:32)
[2017-09-10] MEDS: hydrALAZINE INJ 20 MG/ML VIAL IVP SCH ×2 (09:08→22:16)
[2017-09-10] MEDS: FUROSEMIDE 40 MG/4 ML VIAL IVP SCH (09:08)
[2017-09-10] MEDS: SODIUM CHLORIDE FLUSH 0.9% 10 ML SYRINGE IVP PRN (09:09)
--- NOTE | 2017-09-10 11:12 | PROVIDER PROGRESS NOTE ---
Subjective - General Admit Date: 09/03/17 Procedure Date: 09/05/17 Post Op Days: 5 Procedure Performed: Relook with ileal resection, colon resection, ileocolostomy , end colostomy - Review of Systems Wound/Incisions: positive: Other (Slight serous drainage at base.) Drain Type: 19 Fr Estevan Drain Output Description: Serous, slightly cloudy Approximate mls Output: 245/24 hours and decreasing General: positive: No symptoms, Other (Extubated and answering questions easily. A+OX3) HEENT: positive: No symptoms Pulmonary: positive: No symptoms Cardiovascular: positive: No symptoms Gastrointestinal: positive: No symptoms, Abdominal pain (Less than she thought.) Genitourinary: positive: No symptoms Musculoskeletal: positive: Other (Feels weak.) Psychiatric: positive: No symptoms Objective - Patient Data Reviewed Vital Signs: Yes Vital Signs: Vital Signs x48h Temp Pulse Resp BP BP BP Pulse Ox 09/10/17 10:00 116 H 28 H 140/82 H 127/70 100 09/10/17 09:08 184/98 H 09/10/17 09:00 101 H 29 H 176/111 H 184/97 H 100 09/10/17 08:07 168/93 H 09/10/17 08:00 36.0 C L 101 H 30 H 167/93 H 178/97 H 100 09/10/17 07:37 171/84 H 09/10/17 07:00 105 H 25 H 173/106 H 188/92 H 100 09/10/17 06:00 107 H 24 157/95 H 174/96 H 100 09/10/17 05:00 107 H 25 H 151/96 H 155/85 H 100 09/10/17 04:00 106 H 25 H 151/95 H 148/81 H 100 Weight: Weight 09/08/17 09/09/17 09/10/17 23:59 23:59 23:59 Weight (kg) 77 kg 77 kg 72.5 kg Intake & Output: Intake and Output Totals x24h 09/08/17 09/09/17 09/10/17 23:59 23:59 23:59 Intake Total 3375.579 5000.205 1244.75 Output Total 5010 9115 2365 Balance -1634.421 -4114.795 -1120.25 - Lab Results Lab Results: 09/10/17 03:10 09/10/17 03:10 Other Lab Results: Lab Results x24hrs 09/10/17 09/10/17 09/10/17 Range/Units 06:07 03:10 03:10 WBC 14.6 H (4.8-10.8) x10^3/uL RBC 3.28 L (4.20-5.40) 10^6/uL Hgb 9.6 L (12.0-16.0) g/dL Hct 27.4 L (37.0-47.0) % MCV 83.7 (81.0-99.0) fL MCH 29.3 (27.0-31.0) pg MCHC 35.0 (32.0-36.0) g/dL RDW 15.2 H (12.0-15.0) % Plt Count 220 (130-450) 10^3/uL MPV 9.0 (7.9-10.8) fL Neut # 11.5 H (1.5-6.6) 10^3/uL Lymph # 1.9 (1.5-3.5) 10^3/uL [place] # 1.0 (0.0-1.0) 10^3/uL Eos # 0.1 (0.0-0.7) 10^3/uL Baso # 0.0 (0.0-0.1) 10^3/uL Absolute Nucleated RBC 0.00 x10^3/uL Band Neuts % (Manual) Not Reportable Abnorm Lymph % (Manual) Not Reportable Nucleated RBC % 0.0 /100WBC Neutrophils # (Manual) Not Reportable Lymphocytes # (Manual) Not Reportable Monocytes # (Manual) Not Reportable Eosinophils # (Manual) Not Reportable Basophils # (Manual) Not Reportable Differential Comment MANUAL=AUTO DIFF Platelet Estimate NORMAL (130-450,000) (NORMAL) Platelet Morphology NORMAL APPEARANCE (NORMAL) RBC Morph Micro Appear 1+ TARGET CELLS (NORMAL) Sodium 145 (135-145) mmol/L Potassium 2.7 L (3.5-5.0) mmol/L Chloride 101 (101-111) mmol/L Carbon Dioxide 30 (21-32) mmol/L Anion Gap 14.0 H (6-13) BUN 18 (6-20) mg/dL Creatinine 0.6 (0.4-1.0) mg/dL Estimated GFR (MDRD) 101 (>89) Glucose 146 H (70-100) mg/dL POC Whole Bld Glucose 138 H (70 - 100) mg/dL Calcium 8.1 L (8.5-10.3) mg/dL Phosphorus 4.4 (2.5-4.6) mg/dL Magnesium 1.4 L (1.7-2.8) mg/dL Total Bilirubin 0.7 (0.2-1.0) mg/dL AST 42 (10-42) IU/L ALT 53 (10-60) IU/L Alkaline Phosphatase 97 (42-121) IU/L Total Protein 5.9 L (6.7-8.2) g/dL Albumin 2.7 L (3.2-5.5) g/dL Globulin 3.2 (2.1-4.2) g/dL Albumin/Globulin Ratio 0.8 L (1.0-2.2) Prealbumin 17 L (18-45) mg/dL Triglycerides 244 H ( - 149) mg/dL Blood Type Blood Type Recheck Antibody Screen Crossmatch IS Only 09/10/17 09/09/17 09/09/17 Range/Units 00:12 16:36 12:32 WBC (4.8-10.8) x10^3/uL RBC (4.20-5.40) 10^6/uL Hgb (12.0-16.0) g/dL Hct (37.0-47.0) % MCV (81.0-99.0) fL MCH (27.0-31.0) pg MCHC (32.0-36.0) g/dL RDW (12.0-15.0) % Plt Count (130-450) 10^3/uL MPV (7.9-10.8) fL Neut # (1.5-6.6) 10^3/uL Lymph # (1.5-3.5) 10^3/uL [place] # (0.0-1.0) 10^3/uL Eos # (0.0-0.7) 10^3/uL Baso # (0.0-0.1) 10^3/uL Absolute Nucleated RBC x10^3/uL Band Neuts % (Manual) Abnorm Lymph % (Manual) Nucleated RBC % /100WBC Neutrophils # (Manual) Lymphocytes # (Manual) Monocytes # (Manual) Eosinophils # (Manual) Basophils # (Manual) Differential Comment Platelet Estimate (NORMAL) Platelet Morphology (NORMAL) RBC Morph Micro Appear (NORMAL) Sodium (135-145) mmol/L Potassium (3.5-5.0) mmol/L Chloride (101-111) mmol/L Carbon Dioxide (21-32) mmol/L Anion Gap (6-13) BUN (6-20) mg/dL Creatinine (0.4-1.0) mg/dL Estimated GFR (MDRD) (>89) Glucose (70-100) mg/dL POC Whole Bld Glucose 126 H 160 H (70 - 100) mg/dL Calcium (8.5-10.3) mg/dL Phosphorus (2.5-4.6) mg/dL Magnesium (1.7-2.8) mg/dL Total Bilirubin (0.2-1.0) mg/dL AST (10-42) IU/L ALT (10-60) IU/L Alkaline Phosphatase (42-121) IU/L Total Protein (6.7-8.2) g/dL Albumin (3.2-5.5) g/dL Globulin (2.1-4.2) g/dL Albumin/Globulin Ratio (1.0-2.2) Prealbumin (18-45) mg/dL Triglycerides ( - 149) mg/dL Blood Type O NEGATIVE Blood Type Recheck Antibody Screen NEGATIVE Crossmatch IS Only See Detail 09/09/17 09/09/17 Range/Units 11:41 03:55 WBC (4.8-10.8) x10^3/uL RBC (4.20-5.40) 10^6/uL Hgb (12.0-16.0) g/dL Hct (37.0-47.0) % MCV (81.0-99.0) fL MCH (27.0-31.0) pg MCHC (32.0-36.0) g/dL RDW (12.0-15.0) % Plt Count (130-450) 10^3/uL MPV (7.9-10.8) fL Neut # (1.5-6.6) 10^3/uL Lymph # (1.5-3.5) 10^3/uL [place] # (0.0-1.0) 10^3/uL Eos # (0.0-0.7) 10^3/uL Baso # (0.0-0.1) 10^3/uL Absolute Nucleated RBC x10^3/uL Band Neuts % (Manual) Abnorm Lymph % (Manual) Nucleated RBC % /100WBC Neutrophils # (Manual) Lymphocytes # (Manual) Monocytes # (Manual) Eosinophils # (Manual) Basophils # (Manual) Differential Comment Platelet Estimate (NORMAL) Platelet Morphology (NORMAL) RBC Morph Micro Appear (NORMAL) Sodium (135-145) mmol/L Potassium (3.5-5.0) mmol/L Chloride (101-111) mmol/L Carbon Dioxide (21-32) mmol/L Anion Gap (6-13) BUN (6-20) mg/dL Creatinine (0.4-1.0) mg/dL Estimated GFR (MDRD) (>89) Glucose (70-100) mg/dL POC Whole Bld Glucose 158 H (70 - 100) mg/dL Calcium (8.5-10.3) mg/dL Phosphorus (2.5-4.6) mg/dL Magnesium (1.7-2.8) mg/dL Total Bilirubin (0.2-1.0) mg/dL AST (10-42) IU/L ALT (10-60) IU/L Alkaline Phosphatase (42-121) IU/L Total Protein (6.7-8.2) g/dL Albumin (3.2-5.5) g/dL Globulin (2.1-4.2) g/dL Albumin/Globulin Ratio (1.0-2.2) Prealbumin (18-45) mg/dL Triglycerides ( - 149) mg/dL Blood Type Blood Type Recheck O NEGATIVE Antibody Screen Crossmatch IS Only - Current Medications Current Medications: Current Medications Generic Name Dose Route Start Last Admin Trade Name Freq PRN Reason Stop Dose Admin Diphenhydramine HCl 25 mg 09/09/17 20:14 09/09/17 20:42 Benadryl Inj IVP 25 mg QPM PRN Administration Insomnia Hydralazine HCl 20 mg 09/09/17 10:00 09/10/17 09:08 Apresoline Inj IVP 20 mg Q12H AMNA Administration Cefepime HCl 1 gm/ Sodium 100 mls @ 200 mls/hr 09/04/17 19:00 09/10/17 07:45 Chloride IV 09/14/17 23:55 Infused TID AMNA Infusion Acetaminophen 100 mls @ 400 mls/hr 09/05/17 21:00 09/10/17 09:01 Ofirmev IV Infused Q6H AMNA Infusion Multivitamins 10 ml/ Amino Ac/ 2,010 mls @ 83 mls/hr 09/07/17 19:00 09/09/17 19:00 Electrol/Dextrose/Calcium IV 50 mls/hr Q24H AMNA Infusion Protocol Fat Emulsion Intravenous 250 mls @ 21 mls/hr 09/07/17 19:00 09/10/17 06:12 Intralipid 20% IV Infused Q24H AMNA Infusion Chromium/Copper/Manganese/ 102.48 mls @ 4.27 mls/hr 09/07/17 19:00 09/09/17 19:00 Seleni/Zn 1 ml/ Magnesium IV 4.2 mls/hr Sulfate 0.74 gm/ Sodium Q24H AMNA Infusion Chloride Potassium Phosphate 12 mmol/ 104.1 mls @ 4.338 mls/hr 09/07/17 19:00 19:00 Insulin Human Regular 10 unit/ IV 4.3 mls/hr Sodium Chloride Q24H AMNA Infusion Sodium Chloride 1,000 mls @ 0 mls/hr 09/08/17 19:00 09/09/17 19:00 Normal Saline 0.9% IV 20 mls/hr .Q0M AMNA Infusion TKO Vancomycin HCl 1 gm/ Sodium 250 mls @ 166.667 mls/hr 09/09/17 12:00 09/10/17 01:35 Chloride IV Infused Q12H AMNA Infusion Ketorolac Tromethamine 30 mg 09/08/17 00:01 09/10/17 01:01 Toradol Inj IVP 09/13/17 00:00 30 mg Q6HR PRN Administration Pain or T>100.4 Metoprolol Tartrate 5 mg 09/09/17 20:13 09/10/17 07:37 Lopressor Inj IVP 5 mg Q6H PRN Administration sbp>160 or hr>120 Ondansetron HCl 4 mg 09/03/17 20:35 09/10/17 00:02 Zofran Inj IVP 4 mg Q6HR PRN Administration Nausea / Vomiting Pantoprazole Sodium 40 mg 09/04/17 21:00 09/10/17 08:32 Protonix IVP 40 mg BID AMNA Administration Prochlorperazine Edisylate 10 mg 09/03/17 20:35 09/08/17 22:11 Compazine Inj IVP 10 mg Q6HR PRN Administration Nausea / Vomiting Sodium Chloride 10 ml 09/05/17 22:00 09/10/17 06:11 Normal Saline Flush 0.9% IVP 10 ml Q8HR AMNA Administration Sodium Chloride 10 ml 09/05/17 19:08 09/10/17 09:09 Normal Saline Flush 0.9% IVP 10 ml PRN PRN Administration NEEDED PER PROVIDER ORDERS - Physical Exam Wound/Incisions: positive: Drainage (Slight serous at base.), Other (I repacked the wound with Iodophor the wound is clean.) General Appearance: positive: No acute distress Neck: positive: Trachea midline Respiratory: positive: Chest non-tender, Breath sounds nml (Slightly diminished bilaterally.) Cardiovascular: positive: Tachycardia, Systolic murmur Abdomen: positive: No distention, Tenderness (Incisional.), Other (Ostomy pink and productive of stool.) Skin: positive: Color nml Extremities: positive: Non-tender, Nml appearance, Pedal edema (Improved.) Comments/Other: Patient very thankful has no recollection of the past week. Impression/Plan - Problem List Problem List: Problem List: D6 s/p emergent exploratory laparotomy with sigmoidectomy (perforated), resection of terminal ileum (necrotic) with cecum and appendix, bowel left discontinuous, abdominal washout, placement of 19 Fr Estevan drain, and abdomen left open with a plan for relook operation in 24 hours - in other words a damage control operation D5 s/p relook operation with resection of additional ileum (necrotic) and some right colon (compromised) with ileocolostomy ([id number]), end descending colostomy, abdominal washout and closure of abdomen (skin left open) 1) FEN With stool in the bag, I removed the NG tube and will give a trial of clear liquids. Continue hyperalimentation for now to ensure po is viable option. Will supplement K+ and Mag+. 2) ID D5/10 of Cefepime There was some question of whether she has aspiration pneumonia, but she does not. Vancomycin was added but this should only be used if MRSA is a suspected pathogen. Her nares tested negative - will stop Vancomycin. Can add Metronidazole for added anaerobic coverage. Drain is serous. No current indication of infection. Elevated WBC is where it should be. Gaspar out. 3) DVT prophylaxis Continue TEDs and venadynes. Get patient walking. Relatively anticoagulated on lab studies. 4) Activity This is now the MAJOR area to concentrate on. Get PT and OT to help. Goal is free ambulation in the halls. 5) Pathology Apparently still pending.
[2017-09-10] MEDS: metroNIDAZOLE 500 MG/100 ML 250 MG/50 ML BAG IV SCH ×3 (12:07→23:42)
[2017-09-10] MEDS ORDERED: SODIUM CHLORIDE 0.9% IV SCH (15:00)
[2017-09-10] MEDS ORDERED: POTASSIUM CHLORIDE IV SCH (15:00)
[2017-09-10] MEDS: SODIUM CHLORIDE 0.9% IV SCH ×4 (15:22→19:31)
[2017-09-10] MEDS: POTASSIUM CHLORIDE IV SCH ×4 (15:22→19:31)
--- NOTE | 2017-09-10 18:14 | PROVIDER PROGRESS NOTE ---
Assessment/Plan - Problem List (1) Perforated sigmoid colon Assessment/Plan: Since extubated yesterday and ng out today, Pt is able to take water and jello po without pain. Continue iv antibiotics (as per surgery) and advance diet and activity. Continue tpn and iv hydration til her po intake improves. (2) S/P laparotomy Assessment/Plan: As above. (3) Peritonitis (acute) generalized Assessment/Plan: As above (4) Anasarca Assessment/Plan: Pt less SOB after diuresis started yesterday. Leg and hand edema has also diminished. Continue gentle diuresis and follow electrolytes, Mg and BUN/creat. (5) Anemia Assessment/Plan: Stable H/H after transfusion 2 days ago. Heme test of stool in vault was + Sunday. Continue to monitor labs (6) Hypoxia Assessment/Plan: Resolved. (7) Altered mental status Qualifiers: Altered mental status type: unspecified Qualified Code(s): R41.82 - Altered mental status, unspecified Assessment/Plan: Resolved (8) Septic shock Assessment/Plan: Resolved - Current Meds Current Meds: Current Medications Generic Name Dose Route Start Last Admin Trade Name Freq PRN Reason Stop Dose Admin Diphenhydramine HCl 25 mg 09/09/17 20:14 09/09/17 20:42 Benadryl Inj IVP 25 mg QPM PRN Administration Insomnia Hydralazine HCl 20 mg 09/09/17 10:00 09/10/17 09:08 Apresoline Inj IVP 20 mg Q12H AMNA Administration Cefepime HCl 1 gm/ Sodium 100 mls @ 200 mls/hr 09/04/17 19:00 09/10/17 15:30 Chloride IV 09/14/17 23:55 Infused TID AMNA Infusion Acetaminophen 100 mls @ 400 mls/hr 09/05/17 21:00 09/10/17 15:10 Ofirmev IV Infused Q6H AMNA Infusion Multivitamins 10 ml/ Amino Ac/ 2,010 mls @ 83 mls/hr 09/07/17 19:00 09/09/17 19:00 Electrol/Dextrose/Calcium IV 50 mls/hr Q24H AMNA Infusion Protocol Fat Emulsion Intravenous 250 mls @ 21 mls/hr 09/07/17 19:00 09/10/17 06:12 Intralipid 20% IV Infused Q24H AMNA Infusion Chromium/Copper/Manganese/ 102.48 mls @ 4.27 mls/hr 09/07/17 19:00 09/10/17 17:41 Seleni/Zn 1 ml/ Magnesium IV Infused Sulfate 0.74 gm/ Sodium Q24H AMNA Infusion Chloride Potassium Phosphate 12 mmol/ 104.1 mls @ 4.338 mls/hr 09/07/17 19:00 17:41 Insulin Human Regular 10 unit/ IV Infused Sodium Chloride Q24H AMNA Infusion Sodium Chloride 1,000 mls @ 0 mls/hr 09/08/17 19:00 09/09/17 19:00 Normal Saline 0.9% IV 20 mls/hr .Q0M AMNA Infusion TKO Metronidazole 250 mg in 50 mls @ 100 mls/hr 09/10/17 12:00 09/10/17 17:54 Flagyl 500 Mg/100 Ml IV 09/15/17 23:59 100 mls/hr Q6HR AMNA Administration Potassium Chloride 20 meq/ 110 mls @ 100 mls/hr 09/10/17 15:00 09/10/17 17:52 Sodium Chloride IV 09/10/17 18:59 100 mls/hr Q1H AMNA Administration Ketorolac Tromethamine 30 mg 09/08/17 00:01 09/10/17 01:01 Toradol Inj IVP 09/13/17 00:00 30 mg Q6HR PRN Administration Pain or T>100.4 Metoprolol Tartrate 5 mg 09/09/17 20:13 09/10/17 17:00 Lopressor Inj IVP 5 mg Q6H PRN Administration sbp>160 or hr>120 Ondansetron HCl 4 mg 09/03/17 20:35 09/10/17 00:02 Zofran Inj IVP 4 mg Q6HR PRN Administration Nausea / Vomiting Pantoprazole Sodium 40 mg 09/04/17 21:00 09/10/17 08:32 Protonix IVP 40 mg BID AMNA Administration Prochlorperazine Edisylate 10 mg 09/03/17 20:35 09/08/17 22:11 Compazine Inj IVP 10 mg Q6HR PRN Administration Nausea / Vomiting Sodium Chloride 10 ml 09/05/17 22:00 09/10/17 14:52 Normal Saline Flush 0.9% IVP 10 ml Q8HR AMNA Administration Sodium Chloride 10 ml 09/05/17 19:08 09/10/17 09:09 Normal Saline Flush 0.9% IVP 10 ml PRN PRN Administration NEEDED PER PROVIDER ORDERS - Lab Result Fish Bone Diagrams: 09/10/17 03:10 09/10/17 03:10 - Additional Planning My Orders: My Active Orders 09/11/17 05:00 CBC - COMP BLD CT W/AUTO DIFF [HEME] DAILYLAB CMP [COMPREHENSIVE METABOLIC PANEL] [CHEM] DAILYLAB MAGNESIUM [CHEM] DAILYLAB Subjective - Subjective Patient Reports: Feeling Better, Resting Comfortably, Other (Thirsty) Nursing Reports: No Complaints Objective Vital Signs: Vital Signs - 24 hr 09/09/17 09/09/17 09/09/17 19:00 19:54 20:00 Temperature 37.1 C 36.5 C Heart Rate [ 117 H 119 H Monitoring electrodes] Respiratory 30 H 32 H Rate Blood Pressure Blood Pressure 185/106 H 184/122 H [Right Brachial artery] Blood Pressure 216/101 H 201/98 H [Right Radial artery] O2 Saturation 100 96 09/09/17 09/09/17 09/09/17 21:00 22:00 22:33 Temperature Heart Rate [ 119 H 118 H Monitoring electrodes] Respiratory 29 H 34 H Rate Blood Pressure 189/96 H Blood Pressure 195/117 H 166/112 H [Right Brachial artery] Blood Pressure 175/90 H 183/95 H [Right Radial artery] O2 Saturation 96 100 09/09/17 09/09/17 09/09/17 23:00 23:03 23:10 Temperature Heart Rate [ 109 H Monitoring electrodes] Respiratory 34 H Rate Blood Pressure 187/95 H 178/100 H Blood Pressure 178/100 H [Right Brachial artery] Blood Pressure 175/99 H [Right Radial artery] O2 Saturation 100 09/10/17 09/10/17 09/10/17 00:00 01:00 02:00 Temperature 36.8 C Heart Rate [ 120 H 111 H 113 H Monitoring electrodes] Respiratory 24 20 24 Rate Blood Pressure Blood Pressure 137/87 H 123/91 H 136/87 H [Right Brachial artery] Blood Pressure 158/84 H 123/68 122/70 [Right Radial artery] O2 Saturation 100 100 100 09/10/17 09/10/17 09/10/17 03:00 04:00 05:00 Temperature 36.0 C L Heart Rate [ 111 H 106 H 107 H Monitoring electrodes] Respiratory 22 25 H 25 H Rate Blood Pressure Blood Pressure 139/85 H 151/95 H 151/96 H [Right Brachial artery] Blood Pressure 145/75 H 148/81 H 155/85 H [Right Radial artery] O2 Saturation 100 100 100 09/10/17 09/10/17 09/10/17 06:00 07:00 07:37 Temperature Heart Rate [ 107 H 105 H Monitoring electrodes] Respiratory 24 25 H Rate Blood Pressure 171/84 H Blood Pressure 157/95 H 173/106 H [Right Brachial artery] Blood Pressure 174/96 H 188/92 H [Right Radial artery] O2 Saturation 100 100 09/10/17 09/10/17 09/10/17 08:00 08:07 09:00 Temperature 36.0 C L Heart Rate [ 101 H 101 H Monitoring electrodes] Respiratory 30 H 29 H Rate Blood Pressure 168/93 H Blood Pressure 167/93 H 176/111 H [Right Brachial artery] Blood Pressure 178/97 H 184/97 H [Right Radial artery] O2 Saturation 100 100 09/10/17 09/10/17 09/10/17 09:08 10:00 11:00 Temperature Heart Rate [ 116 H 114 H Monitoring electrodes] Respiratory 28 H 23 Rate Blood Pressure 184/98 H Blood Pressure 140/82 H 127/79 [Right Brachial artery] Blood Pressure 127/70 [Right Radial artery] O2 Saturation 100 100 09/10/17 09/10/17 09/10/17 13:00 14:41 16:24 Temperature 36.5 C 36.8 C 37.0 C Heart Rate [ 112 H 110 H 107 H Monitoring electrodes] Respiratory 28 H 28 H 22 Rate Blood Pressure Blood Pressure 115/88 H [Right Brachial artery] Blood Pressure 136/88 H 141/101 H [Right Radial artery] O2 Saturation 97 99 100 09/10/17 09/10/17 09/10/17 17:00 17:20 17:24 Temperature Heart Rate [ 96 96 Monitoring electrodes] Respiratory 20 Rate Blood Pressure 150/100 H Blood Pressure [Right Brachial artery] Blood Pressure 170/100 H 166/115 H [Right Radial artery] O2 Saturation 100 09/10/17 17:30 Temperature Heart Rate [ Monitoring electrodes] Respiratory Rate Blood Pressure 155/95 H Blood Pressure [Right Brachial artery] Blood Pressure [Right Radial artery] O2 Saturation Oxygen O2 Source Room air I&O (Last 24 Hrs): Intake and Output Totals x24h 09/08/17 09/09/17 09/10/17 23:59 23:59 23:59 Intake Total 3375.579 5000.205 2619.488 Output Total 5010 9153 3005 Balance -1634.421 -4114.795 -385.512 General: Alert, No acute distress HEENT: Other (Dry oral mucosa) Neck: Supple Neuro: Oriented Times 3 Cardiovascular: Regular rate, No murmurs Respiratory: No respiratory distress Abdomen: Soft, Other (No bowel sounds) Extremities: Other (Trace-1+ edema of legs and hands) - Results Results: Laboratory Results WBC 14.6 x10^3/uL (4.8-10.8) H 09/10/17 03:10 RBC 3.28 10^6/uL (4.20-5.40) L 09/10/17 03:10 Hgb 9.6 g/dL (12.0-16.0) L 09/10/17 03:10 Hct 27.4 % (37.0-47.0) L 09/10/17 03:10 MCV 83.7 fL (81.0-99.0) 09/10/17 03:10 MCH 29.3 pg (27.0-31.0) 09/10/17 03:10 MCHC 35.0 g/dL (32.0-36.0) 09/10/17 03:10 RDW 15.2 % (12.0-15.0) H 09/10/17 03:10 Plt Count 220 10^3/uL (130-450) 09/10/17 03:10 MPV 9.0 fL (7.9-10.8) 09/10/17 03:10 Neut # 11.5 10^3/uL (1.5-6.6) H 09/10/17 03:10 Lymph # 1.9 10^3/uL (1.5-3.5) 09/10/17 03:10 [place] # 1.0 10^3/uL (0.0-1.0) 09/10/17 03:10 Eos # 0.1 10^3/uL (0.0-0.7) 09/10/17 03:10 Baso # 0.0 10^3/uL (0.0-0.1) 09/10/17 03:10 Absolute Nucleated RBC 0.00 x10^3/uL 09/10/17 03:10 Total Counted 100 09/09/17 03:35 Band Neuts % (Manual) Not Reportable 09/10/17 03:10 Reactive Lymphs % (Man) 15 % 09/05/17 04:35 Abnorm Lymph % (Manual) Not Reportable 09/10/17 03:10 Metamyelocytes % 2 % (-0) H 09/05/17 19:33 Myelocytes % 1 % (-0) H 09/09/17 03:35 Nucleated RBC % 0.0 /100WBC 09/10/17 03:10 Neutrophils # (Manual) Not Reportable 09/10/17 03:10 Lymphocytes # (Manual) Not Reportable 09/10/17 03:10 Monocytes # (Manual) Not Reportable 09/10/17 03:10 Eosinophils # (Manual) Not Reportable 09/10/17 03:10 Basophils # (Manual) Not Reportable 09/10/17 03:10 Nucleated RBCs 1 % 09/08/17 05:20 Differential Comment MANUAL=AUTO DIFF 09/10/17 03:10 Manual Slide Review Indicated 09/05/17 19:33 WBC Morphology 1+ DOHLE BODIES (NORMAL) 2+ TOXIC GRANULATION (NORMAL) 09/05 19:33 WBC Morphology 1+ TOXIC GRANULATION (NORMAL) 09/09/17 03:35 Platelet Estimate NORMAL (130-450,000) (NORMAL) 09/10/17 03:10 Platelet Morphology NORMAL APPEARANCE (NORMAL) 09/10/17 03:10 RBC Morph Micro Appear 1+ HYPOCHROMASIA (NORMAL) 1+ TARGET CELLS (NORMAL) 09/10/17 03:10 RBC Morph Micro Appear 1+ HYPOCHROMASIA (NORMAL) 1+ TARGET CELLS (NORMAL) 09/10/17 03:10 PT 13.3 secs (9.9-12.6) H 09/08/17 05:20 INR 1.2 (0.8-1.2) 09/08/17 05:20 Bld Gas Analysis Time 0555 09/09/17 05:55 Sample Site A-LINE 12/10/17 05:55 ABG pH 7.57 (7.35-7.45) H 09/09/17 05:55 ABG pCO2 29 mmHg (34-45) L 09/09/17 05:55 ABG pO2 173 mmHg (80-100) H* 09/09/17 05:55 ABG HCO3 25.4 mmol/L (22.0-26.0) 09/09/17 05:55 ABG Total CO2 26.3 MMOL/L (21.0-29.0) 09/09/17 05:55 ABG O2 Saturation 99 % (94-98) H 09/09/17 05:55 ABG Oximetry Spot Check 100 % 09/09/17 05:55 ABG Base Excess 3.3 mmol/L (-2.0-3.0) H 09/09/17 05:55 Angel Luis Test NOT APPLICABLE 09/09/17 05:55 Respiration Rate 14 b/min 09/09/17 05:55 O2 Delivery Device VENTILATOR 09/09/17 05:55 Vent Mode SIMV 09/09/17 05:55 FiO2 30.00 09/09/17 05:55 Tidal Volume 450 mL 09/09/17 05:55 PEEP 7 cmH2O 09/09/17 05:55 Pressure Support Vent 10 cmH2O 09/09/17 05:55 Sodium 145 mmol/L (135-145) 09/10/17 03:10 Potassium 2.7 mmol/L (3.5-5.0) L 09/10/17 03:10 Chloride 101 mmol/L (101-111) 09/10/17 03:10 Carbon Dioxide 30 mmol/L (21-32) 09/10/17 03:10 Anion Gap 14.0 (6-13) H 09/10/17 03:10 BUN 18 mg/dL (6-20) 09/10/17 03:10 Creatinine 0.6 mg/dL (0.4-1.0) 09/10/17 03:10 Estimated GFR (MDRD) 101 (>89) 09/10/17 03:10 Glucose 146 mg/dL (70-100) H 09/10/17 03:10 POC Whole Bld Glucose 134 mg/dL (70 - 100) H 09/10/17 17:40 Glycated Hemoglobin 5.8 % (4.6-6.2) 09/04/17 05:45 Estim Average Glucose 120 (70-100) H 09/04/17 05:45 Lactic Acid 1.2 mmol/L (0.5-2.2) 09/09/17 03:35 Calcium 8.1 mg/dL (8.5-10.3) L 09/10/17 03:10 Ionized Calcium NO 09/03/17 21:48 Phosphorus 4.4 mg/dL (2.5-4.6) 09/10/17 03:10 Magnesium 1.4 mg/dL (1.7-2.8) L 09/10/17 03:10 Total Bilirubin 0.7 mg/dL (0.2-1.0) 09/10/17 03:10 AST 42 IU/L (10-42) 09/10/17 03:10 ALT 53 IU/L (10-60) 09/10/17 03:10 Alkaline Phosphatase 97 IU/L (42-121) 09/10/17 03:10 Troponin I 0.09 ng/mL (<0.49) 09/05/17 12:25 B-Natriuretic Peptide 3978 pg/mL (5-100) H 09/09/17 03:35 Total Protein 5.9 g/dL (6.7-8.2) L 09/10/17 03:10 Albumin 2.7 g/dL (3.2-5.5) L 09/10/17 03:10 Globulin 3.2 g/dL (2.1-4.2) 09/10/17 03:10 Albumin/Globulin Ratio 0.8 (1.0-2.2) L 09/10/17 03:10 Prealbumin 17 mg/dL (18-45) L 09/10/17 03:10 Triglycerides 244 mg/dL (-149) H 09/10/17 03:10 Lipase 13 U/L (22-51) L 09/03/17 16:07 Urine Color YELLOW 09/08/17 00:10 Urine Clarity CLEAR (CLEAR) 09/08/17 00:10 Urine pH 6.0 PH (5.0-7.5) 09/08/17 00:10 Ur Specific [place] 1.020 (1.002-1.030) 09/08/17 00:10 Urine Protein TRACE mg/dL (NEGATIVE) 09/08/17 00:10 Urine Glucose (UA) NEGATIVE mg/dL (NEGATIVE) 09/08/17 00:10 Urine Ketones NEGATIVE mg/dL (NEGATIVE) 09/08/17 00:10 Urine Occult Blood NEGATIVE (NEGATIVE) 09/08/17 00:10 Urine Nitrite NEGATIVE (NEGATIVE) 09/08/17 00:10 Urine Bilirubin NEGATIVE (NEGATIVE) 09/08/17 00:10 Urine Urobilinogen 0.2 (NORMAL) E.U./dL (NORMAL) 09/08/17 00:10 Ur Leukocyte Esterase NEGATIVE (NEGATIVE) 09/08/17 00:10 Urine RBC None Seen /HPF (0-5) 09/03/17 22:19 Urine WBC 0-3 /HPF (0-5) 09/03/17 22:19 Ur Squamous Epith Cells FEW Squamous (<= Few) 09/03/17 22:19 Urine Bacteria None Seen /HPF (None Seen) 09/03/17 22:19 Urine Casts >50 Hyaline Casts /LPF0-2 Fine Granular /LPF 09/03/17 22:19 Urine Casts >50 Hyaline Casts /LPF0-2 Fine Granular /LPF 09/03/17 22:19 Ur Microscopic Review NOT INDICATED 09/08/17 00:10 Urine Culture Comments NOT INDICATED 09/08/17 00:10 Last Dose Date 09/09/17 09/10/17 11:32 Last Dose Time 1200 09/10/17 11:32 Vancomycin Trough 11.6 ug/mL (5.0-15.0) 09/10/17 11:32 Blood Type O NEGATIVE 09/09/17 12:32 Blood Type Recheck O NEGATIVE 09/09/17 03:55 Antibody Screen NEGATIVE 09/09/17 12:32 Crossmatch IS Only See Detail 09/09/17 12:32
[2017-09-10] MEDS: TPN (CLINIMIX E 5/15) 2,000 ML with MULTIVITAMIN 10 ML IV SCH ×2 (19:30)
[2017-09-10] MEDS: TRACE ELEMENTS V IV SCH (19:32)
[2017-09-10] MEDS: [UNRECOGNIZED DRUG - OTHER] IV SCH (19:32)
[2017-09-10] MEDS: MAGNESIUM SULFATE IV SCH (19:32)
[2017-09-10] MEDS: INSULIN REGULAR HUMAN IV SCH (19:36)
[2017-09-10] MEDS: [UNRECOGNIZED DRUG - OTHER] IV SCH (19:36)
[2017-09-10] MEDS: SODIUM CHLORIDE 0.9% 1,000 ML IV SCH (19:36)
[2017-09-10] MEDS: POTASSIUM PHOSPHATE IV SCH (19:36)
[2017-09-10] MEDS: FAT EMULSION 20% 250 ML IV SCH (19:40)
[2017-09-10] MEDS: diphenhydrAMINE INJ 50 MG/ML VIAL IVP PRN (22:40)
[2017-09-10] MEDS: NYSTATIN CREAM 15 GM TUBE TOP SCH (22:40)
[2017-09-11] MEDS: LORazepam 2 MG/ML VIAL IVP PRN ×2 (00:32→22:49)
[2017-09-11] MEDS: ACETAMINOPHEN 1,000 MG/100 ML 100 ML IV SCH ×4 (03:05→20:19)
[2017-09-11] MEDS: metroNIDAZOLE 500 MG/100 ML 250 MG/50 ML BAG IV SCH ×4 (05:26→23:51)
[2017-09-11] MEDS: SODIUM CHLORIDE FLUSH 0.9% 10 ML SYRINGE IVP PRN ×6 (05:35→22:49)
[2017-09-11 05:51] LABS: BASOPHILS % (AUTO) 0.2 %; EOSINOPHILS # (AUTO) 0.2 10^3/uL (0.0-0.7); EOSINOPHILS % (AUTO) 1.6 %; HCT - HEMATOCRIT 27.3 % (37.0-47.0); HGB - HEMOGLOBIN 9.1 g/dL (12.0-16.0); LYMPHOCYTES # (AUTO) 1.6 10^3/uL (1.5-3.5); LYMPHOCYTES % (AUTO) 11.9 %; MEAN CORPUSCULAR HEMOGLOBIN 28.8 pg (27.0-31.0); MEAN CORPUSCULAR HGB CONC 33.4 g/dL (32.0-36.0); MEAN CORPUSCULAR VOLUME 86.1 fL (81.0-99.0); MEAN PLATELET VOLUME 8.8 fL (7.9-10.8); MONOCYTES % (AUTO) 7.4 %; NEUTROPHILS # (AUTO) 10.5 10^3/uL (1.5-6.6); NEUTROPHILS % (AUTO) 78.9 %; RED BLOOD COUNT 3.17 10^6/uL (4.20-5.40); RED CELL DISTRIBUTION WIDTH 15.3 % (12.0-15.0); UNCORRECTED WHITE BLOOD COUNT 13.3 x10^3/uL; WHITE BLOOD COUNT 13.3 x10^3/uL (4.8-10.8)
[2017-09-11] MEDS: CEFEPIME 1 GM in SODIUM CHLORIDE 0.9% MINIBAG 100 ML IV SCH ×3 (06:09→21:53)
[2017-09-11] MEDS: SODIUM CHLORIDE FLUSH 0.9% 10 ML SYRINGE IVP SCH ×3 (06:11→21:53)
[2017-09-11] MEDS: NYSTATIN CREAM 15 GM TUBE TOP SCH ×3 (06:11→21:55)
[2017-09-11 06:12] LABS: ALBUMIN/GLOBULIN RATIO 0.8 (1.0-2.2); BILIRUBIN,TOTAL 0.5 mg/dL (0.2-1.0); CALCIUM 8.1 mg/dL (8.5-10.3); CREATININE 0.6 mg/dL (0.4-1.0); MAGNESIUM 1.7 mg/dL (1.7-2.8); TOTAL PROTEIN 5.7 g/dL (6.7-8.2)
[2017-09-11] MEDS: METOPROLOL 5 MG/5 ML VIAL IVP PRN (08:21)
[2017-09-11] MEDS: PANTOPRAZOLE 40 MG VIAL IVP SCH ×2 (08:26→20:18)
[2017-09-11] MEDS: hydrALAZINE INJ 20 MG/ML VIAL IVP SCH ×2 (10:31→21:53)
--- NOTE | 2017-09-11 13:45 | PROVIDER PROGRESS NOTE ---
Subjective - Prog Note Date Prog Note Date: 09/11/17 Prog Note Time: 13:43 - Subjective Pt reports feeling: Improved Subjective: she is tired but denies cp, sob. She is consistently tachypneic with a respiratory rate of 26-33 a minute for the last 3 days. But her O2 sat remains 98% on room air. She feels much better sitting up and less short of breath and last fall in her chest. If she lays down she feels like her air is being cut off. She has an open wound that is being packed. She is getting output from her ostomy. Urine output is good. She is on TPN. She continues to be on IV antibiotics. Current Medications - Current Medications Current Medications: Active Medications Diphenhydramine HCl (Benadryl Inj) 25 mg IVP QPM PRN PRN Reason: Insomnia Last Admin: 09/10/17 22:40 Dose: 25 mg Hydralazine HCl (Apresoline Inj) 20 mg IVP Q12H AMNA Last Admin: 09/11/17 10:31 Dose: 20 mg Cefepime HCl 1 gm/ Sodium (Chloride) 100 mls @ 200 mls/hr IV TID AMNA Stop: 09/14/17 23:55 Last Infusion: 09/11/17 06:40 Dose: Infused Acetaminophen (Ofirmev) 100 mls @ 400 mls/hr IV Q6H AMNA Last Infusion: 09/11/17 09:17 Dose: Infused Multivitamins 10 ml/ Amino Ac/ (Electrol/Dextrose/Calcium) 2,010 mls @ 83 mls/ hr IV Q24H AMNA PRN Reason: Protocol Stop: 09/11/17 18:59 Last Infusion: 09/11/17 13:43 Dose: 83 mls/hr Chromium/Copper/Manganese/Seleni/Zn 1 ml/ Magnesium Sulfate 0.74 gm/ Sodium Chloride 102.48 mls @ 4.27 mls/hr IV Q24H AMNA Stop: 09/11/17 18:59 Last Infusion: 09/11/17 13:43 Dose: 4.3 mls/hr Potassium Phosphate 12 mmol/Insulin Human Regular 10 unit/Sodium Chloride 104.1 mls @ 4.338 mls/hr IV Q24H AMNA Stop: 09/11/17 18:59 Last Infusion: 09/11/17 13:43 Dose: 4.3 mls/hr Sodium Chloride (Normal Saline 0.9%) 1,000 mls @ 0 mls/hr IV .Q0M [facility] PRN Reason: TKO Last Infusion: 09/11/17 12:54 Dose: 20 mls/hr Metronidazole (Flagyl 500 Mg/100 Ml) 250 mg in 50 mls @ 100 mls/hr IV Q6HR [facility] Stop: 09/15/17 23:59 Last Infusion: 09/11/17 12:54 Dose: Infused Ketorolac Tromethamine (Toradol Inj) 30 mg IVP Q6HR PRN PRN Reason: Pain or T>100.4 Stop: 09/13/17 00:00 Last Admin: 09/10/17 01:01 Dose: 30 mg Lorazepam (Ativan Inj (Vial)) 2 mg IVP QPM PRN PRN Reason: insomnia Last Admin: 09/11/17 00:32 Dose: 2 mg Metoprolol Tartrate (Lopressor Inj) 5 mg IVP Q6H PRN PRN Reason: sbp>160 or hr>120 Last Admin: 09/11/17 08:21 Dose: 5 mg Nystatin (Mycostatin Cream) 1 applic TOP TID [facility] Last Admin: 09/11/17 12:52 Dose: 1 applic Ondansetron HCl (Zofran Inj) 4 mg IVP Q6HR PRN PRN Reason: Nausea / Vomiting Last Admin: 09/10/17 00:02 Dose: 4 mg Pantoprazole Sodium (Protonix) 40 mg IVP BID [facility] Last Admin: 09/11/17 08:26 Dose: 40 mg Prochlorperazine Edisylate (Compazine Inj) 10 mg IVP Q6HR PRN PRN Reason: Nausea / Vomiting Last Admin: 09/08/17 22:11 Dose: 10 mg Sodium Chloride (Normal Saline Flush 0.9%) 10 ml IVP Q8HR [facility] Last Admin: 09/11/17 06:11 Dose: 10 ml Sodium Chloride (Normal Saline Flush 0.9%) 10 ml IVP PRN PRN PRN Reason: NEEDED PER PROVIDER ORDERS Last Admin: 09/11/17 08:26 Dose: 25 ml Cyclobenzaprine [Flexeril] 5 mg PO TID PRN 06/19/17 Losartan [Cozaar] 50 mg PO DAILY 06/19/17 Objective - Vital Signs/Intake & Output Reviewed Vital Signs: Yes Vital Signs: Vital Signs x48h Temp Pulse Resp BP BP Pulse Ox 09/11/17 13:00 116 H 29 H 135/100 H 100 09/11/17 11:45 116/80 09/11/17 11:15 37.2 C 110 H 30 H 116/80 97 09/11/17 10:31 162/111 H 09/11/17 09:46 100 28 H 148/97 H 98 09/11/17 08:21 164/136 H 09/11/17 08:20 123 H 30 H 164/136 H 99 09/11/17 07:00 115 H 29 H 160/112 H 100 Intake & Output: Intake & Output 09/08/17 09/09/17 09/10/17 09/11/17 23:59 23:59 23:59 23:59 Intake Total 3375.579 5000.205 4817.898 3066.240 Output Total 5010 9115 3730 1290 Balance -1634.421 -4114.795 4540.519 6438.240 - Objective General Appearance: positive: No acute distress, Alert, Other (Pale slender middle-aged female who needs a little bit of help to sit up in bed but is able to swing her legs to transfer to a sitting position and then standing position with only a minimal wobble. Legs really are weak) Eyes Bilateral: positive: PERRL, EOMI ENT: positive: Dry mucous membranes, Other (Pale mucous membranes) Neck: positive: No JVD. negative: Stiff neck, Carotid bruit Respiratory: positive: Chest non-tender, No respiratory distress (In spite of being tachypneic at 24), Rhonchi (Occasionally, midlung, but clear with a very weak cough.). negative: Breath sounds nml (Very diminished at the bases and clear as you get mid lungs to apices), Wheezes, Rales Cardiovascular: positive: Regular rate & rhythm, Tachycardia (Up to the 120s at times. Requiring Lopressor to bring her down below 100). negative: Gallop/S4, Friction rub Abdomen: positive: Tenderness (Around incision but not severe), Other (Quiet bowel sounds). negative: Guarding, Rebound Skin: positive: Warm, Dry, Pallor - Lab Results Fish Bones: 09/11/17 05:40 09/11/17 05:40 Other Labs: Lab Results x24hrs 09/11/17 09/11/17 09/11/17 Range/Units 11:41 05:57 05:40 WBC (4.8-10.8) x10^3/uL RBC (4.20-5.40) 10^6/uL Hgb (12.0-16.0) g/dL Hct (37.0-47.0) % MCV (81.0-99.0) fL MCH (27.0-31.0) pg MCHC (32.0-36.0) g/dL RDW (12.0-15.0) % Plt Count (130-450) 10^3/uL MPV (7.9-10.8) fL Neut # (1.5-6.6) 10^3/uL Lymph # (1.5-3.5) 10^3/uL [place] # (0.0-1.0) 10^3/uL Eos # (0.0-0.7) 10^3/uL Baso # (0.0-0.1) 10^3/uL Absolute Nucleated RBC x10^3/uL Nucleated RBC % /100WBC Sodium 140 (135-145) mmol/L Potassium 4.0 (3.5-5.0) mmol/L Chloride 107 (101-111) mmol/L Carbon Dioxide 26 (21-32) mmol/L Anion Gap 7.0 (6-13) BUN 21 H (6-20) mg/dL Creatinine 0.6 (0.4-1.0) mg/dL Estimated GFR (MDRD) 101 (>89) Glucose 117 H (70-100) mg/dL POC Whole Bld Glucose 157 H 121 H (70 - 100) mg/dL Calcium 8.1 L (8.5-10.3) mg/dL Magnesium 1.7 (1.7-2.8) mg/dL Total Bilirubin 0.5 (0.2-1.0) mg/dL AST 27 (10-42) IU/L ALT 35 (10-60) IU/L Alkaline Phosphatase 83 (42-121) IU/L Total Protein 5.7 L (6.7-8.2) g/dL Albumin 2.5 L (3.2-5.5) g/dL Globulin 3.2 (2.1-4.2) g/dL Albumin/Globulin Ratio 0.8 L (1.0-2.2) Blood Type Antibody Screen Crossmatch IS Only 09/11/17 09/10/17 09/10/17 Range/Units 05:40 23:52 17:40 WBC 13.3 H (4.8-10.8) x10^3/uL RBC 3.17 L (4.20-5.40) 10^6/uL Hgb 9.1 L (12.0-16.0) g/dL Hct 27.3 L (37.0-47.0) % MCV 86.1 (81.0-99.0) fL MCH 28.8 (27.0-31.0) pg MCHC 33.4 (32.0-36.0) g/dL RDW 15.3 H (12.0-15.0) % Plt Count 279 (130-450) 10^3/uL MPV 8.8 (7.9-10.8) fL Neut # 10.5 H (1.5-6.6) 10^3/uL Lymph # 1.6 (1.5-3.5) 10^3/uL [place] # 1.0 (0.0-1.0) 10^3/uL Eos # 0.2 (0.0-0.7) 10^3/uL Baso # 0.0 (0.0-0.1) 10^3/uL Absolute Nucleated RBC 0.01 x10^3/uL Nucleated RBC % 0.0 /100WBC Sodium (135-145) mmol/L Potassium (3.5-5.0) mmol/L Chloride (101-111) mmol/L Carbon Dioxide (21-32) mmol/L Anion Gap (6-13) BUN (6-20) mg/dL Creatinine (0.4-1.0) mg/dL Estimated GFR (MDRD) (>89) Glucose (70-100) mg/dL POC Whole Bld Glucose 120 H 134 H (70 - 100) mg/dL Calcium (8.5-10.3) mg/dL Magnesium (1.7-2.8) mg/dL Total Bilirubin (0.2-1.0) mg/dL AST (10-42) IU/L ALT (10-60) IU/L Alkaline Phosphatase (42-121) IU/L Total Protein (6.7-8.2) g/dL Albumin (3.2-5.5) g/dL Globulin (2.1-4.2) g/dL Albumin/Globulin Ratio (1.0-2.2) Blood Type Antibody Screen Crossmatch IS Only 09/09/17 Range/Units 12:32 WBC (4.8-10.8) x10^3/uL RBC (4.20-5.40) 10^6/uL Hgb (12.0-16.0) g/dL Hct (37.0-47.0) % MCV (81.0-99.0) fL MCH (27.0-31.0) pg MCHC (32.0-36.0) g/dL RDW (12.0-15.0) % Plt Count (130-450) 10^3/uL MPV (7.9-10.8) fL Neut # (1.5-6.6) 10^3/uL Lymph # (1.5-3.5) 10^3/uL [place] # (0.0-1.0) 10^3/uL Eos # (0.0-0.7) 10^3/uL Baso # (0.0-0.1) 10^3/uL Absolute Nucleated RBC x10^3/uL Nucleated RBC % /100WBC Sodium (135-145) mmol/L Potassium (3.5-5.0) mmol/L Chloride (101-111) mmol/L Carbon Dioxide (21-32) mmol/L Anion Gap (6-13) BUN (6-20) mg/dL Creatinine (0.4-1.0) mg/dL Estimated GFR (MDRD) (>89) Glucose (70-100) mg/dL POC Whole Bld Glucose (70 - 100) mg/dL Calcium (8.5-10.3) mg/dL Magnesium (1.7-2.8) mg/dL Total Bilirubin (0.2-1.0) mg/dL AST (10-42) IU/L ALT (10-60) IU/L Alkaline Phosphatase (42-121) IU/L Total Protein (6.7-8.2) g/dL Albumin (3.2-5.5) g/dL Globulin (2.1-4.2) g/dL Albumin/Globulin Ratio (1.0-2.2) Blood Type O NEGATIVE Antibody Screen NEGATIVE Crossmatch IS Only See Detail Assessment/Plan - Problem List (1) Peritonitis (acute) generalized Impression: From : Perforated distal sigmoid colon resulting in fecalent peritonitis and necrosis 12/ had Emergent exploratory laparotomy, with sigmoidectomy, drainage of fecalent peritonitis, resection of necrotic terminal ileum and cecum (with attached appendix), placement of drain with non-closure of abdomen with plan for re-operation in 24 hours (note bowel is not in continuity). POD #7 12/ had: Relook after 24 hours of ICU/medical/pressor/fluid support with resection of necrotic-questionable small bowel and right colon, ileocolostomy, abdominal washout, end descending colostomy, closure of abdomen. POD #6 Post Op Diagnosis: Known discontinuous bowel, necrotic ileum and questionable right colon She is now Day #6/10 of cefipime. Day #5 of flagyl. being followed by Gen surg. she has had NG out yesterday. put on clears and tolerating it. still with drain still with wound needing bandages. I will transition to med surg status from ICU. (2) Anasarca Impression: associated with a patient in septic shock, needing Multiple fluids for resuscitation, pressors, and is malnourished. She was given Lasix twice daily and that was stopped yesterday because she she really is third spacing and we were intravascularly depleting her. Anasarca will improve once her nutrition improves. Plan:, Continue to monitor intake and output. Hold the Lasix. Keep on pressing on with nutrition to improve albumin. (3) Tachycardia Impression: She had an echocardiogram done for troponins, hypotension. The echocardiogram shows possible left ventricular outflow tract obstruction as well as a an incompletely filled ventricle. She is hyperdynamic with an ejection fraction of close to 75%. I suspect she is still intravascularly depleted. But she is tanked up with blood, tanked up with IV fluids, will await for third spacing to resolve and see if it improves on its own. In the meantime she is still cutting Lopressor as needed when she gets above 120. (4) Protein-calorie malnutrition, severe Impression: In a patient who had a catastrophic abdomen. She is now recovered from the shock. Plan: TPN will be discontinued tonight. Advance diet to regular diet. (5) Aspiration pneumonia due to vomit Impression: Happened that intubation and witnessed with her first surgery Plan, has been on cefepime and intermittent Flagyl. Stop antibiotics when the antibiotics are stopped for her abdomen. She is not hypoxic. Still slightly tachypneic. Qualifiers: Laterality: unspecified laterality (6) Anemia Impression: From acute blood loss anemia as well as nutritional anemia. Plan: Continue to monitor daily. She is status post 2 units of transfused blood. On iron supplementation as well. (7) Generalized muscle weakness Impression: After an episode of septic shock. Due to infection, immobility in bed. Has been progressing well. Has been seen by physical therapy.Able to walk 300 feet with a walker Recommend continued PT in hospital working toward goal of good LE strength and indeepndent ambualtion in hallway; pt. encouraged to do ex. between PT visits and mobilzed w/nursing as much as tolerated/possible. Expect pt. may be able to d/c home. May need walker at d/c, to be determined. (8) Hypertension Impression: transition from IV meds to po meds. Qualifiers: Hypertension type: essential hypertension Qualified Code(s): I10 - Essential (primary) hypertension
[2017-09-11] MEDS: SODIUM CHLORIDE 0.9% 1,000 ML IV SCH (16:24)
--- NOTE | 2017-09-11 22:30 | PROVIDER PROGRESS NOTE ---
Subjective - General Admit Date: 09/03/17 Procedure Date: 09/05/17 Post Op Days: 6 Procedure Performed: Relook with ileal resection, colon resection, ileocolostomy , end colostomy - Review of Systems Wound/Incisions: positive: Other (The wound is clean.) Drain Type: 19 Fr Estevan Drain Output Description: Serous, slightly cloudy Approximate mls Output: 140 mL/24 hours and decreasing General: positive: No symptoms, Other (Extubated and answering questions easily. A+OX3) HEENT: positive: No symptoms Pulmonary: positive: No symptoms Cardiovascular: positive: No symptoms Gastrointestinal: positive: No symptoms, Abdominal pain (Less than she thought.) Genitourinary: positive: No symptoms Musculoskeletal: positive: Other (Feels weak.) Psychiatric: positive: No symptoms Objective - Patient Data Reviewed Vital Signs: Yes Vital Signs: Vital Signs x48h Temp Pulse Resp BP BP Pulse Ox 09/11/17 22:16 122 H 136/85 H 09/11/17 22:13 121 H 141/83 H 09/11/17 22:03 114 H 154/78 H 09/11/17 21:53 142/101 H 09/11/17 21:50 37 C 112 H 16 142/101 H 97 09/11/17 17:10 37.7 C H 117 H 26 H 151/115 H 98 09/11/17 16:08 121 H 32 H 152/94 H 97 Weight: Weight 09/09/17 09/10/17 09/11/17 23:59 23:59 23:59 Weight (kg) 77 kg 72.5 kg 65.5 kg Intake & Output: Intake and Output Totals x24h 09/09/17 09/10/17 09/11/17 23:59 23:59 23:59 Intake Total 5000.205 4817.898 4166.778 Output Total 9115 3730 1915 Balance -4114.795 4737.490 5807.778 - Lab Results Lab Results: 09/11/17 05:40 09/11/17 05:40 Other Lab Results: Lab Results x24hrs 09/11/17 09/11/17 09/11/17 Range/Units 18:02 11:41 05:57 WBC (4.8-10.8) x10^3/uL RBC (4.20-5.40) 10^6/uL Hgb (12.0-16.0) g/dL Hct (37.0-47.0) % MCV (81.0-99.0) fL MCH (27.0-31.0) pg MCHC (32.0-36.0) g/dL RDW (12.0-15.0) % Plt Count (130-450) 10^3/uL MPV (7.9-10.8) fL Neut # (1.5-6.6) 10^3/uL Lymph # (1.5-3.5) 10^3/uL [place] # (0.0-1.0) 10^3/uL Eos # (0.0-0.7) 10^3/uL Baso # (0.0-0.1) 10^3/uL Absolute Nucleated RBC x10^3/uL Nucleated RBC % /100WBC Sodium (135-145) mmol/L Potassium (3.5-5.0) mmol/L Chloride (101-111) mmol/L Carbon Dioxide (21-32) mmol/L Anion Gap (6-13) BUN (6-20) mg/dL Creatinine (0.4-1.0) mg/dL Estimated GFR (MDRD) (>89) Glucose (70-100) mg/dL POC Whole Bld Glucose 168 H 157 H 121 H (70 - 100) mg/dL Calcium (8.5-10.3) mg/dL Magnesium (1.7-2.8) mg/dL Total Bilirubin (0.2-1.0) mg/dL AST (10-42) IU/L ALT (10-60) IU/L Alkaline Phosphatase (42-121) IU/L Total Protein (6.7-8.2) g/dL Albumin (3.2-5.5) g/dL Globulin (2.1-4.2) g/dL Albumin/Globulin Ratio (1.0-2.2) 09/11/17 09/11/17 09/10/17 Range/Units 05:40 05:40 23:52 WBC 13.3 H (4.8-10.8) x10^3/uL RBC 3.17 L (4.20-5.40) 10^6/uL Hgb 9.1 L (12.0-16.0) g/dL Hct 27.3 L (37.0-47.0) % MCV 86.1 (81.0-99.0) fL MCH 28.8 (27.0-31.0) pg MCHC 33.4 (32.0-36.0) g/dL RDW 15.3 H (12.0-15.0) % Plt Count 279 (130-450) 10^3/uL MPV 8.8 (7.9-10.8) fL Neut # 10.5 H (1.5-6.6) 10^3/uL Lymph # 1.6 (1.5-3.5) 10^3/uL [place] # 1.0 (0.0-1.0) 10^3/uL Eos # 0.2 (0.0-0.7) 10^3/uL Baso # 0.0 (0.0-0.1) 10^3/uL Absolute Nucleated RBC 0.01 x10^3/uL Nucleated RBC % 0.0 /100WBC Sodium 140 (135-145) mmol/L Potassium 4.0 (3.5-5.0) mmol/L Chloride 107 (101-111) mmol/L Carbon Dioxide 26 (21-32) mmol/L Anion Gap 7.0 (6-13) BUN 21 H (6-20) mg/dL Creatinine 0.6 (0.4-1.0) mg/dL Estimated GFR (MDRD) 101 (>89) Glucose 117 H (70-100) mg/dL POC Whole Bld Glucose 120 H (70 - 100) mg/dL Calcium 8.1 L (8.5-10.3) mg/dL Magnesium 1.7 (1.7-2.8) mg/dL Total Bilirubin 0.5 (0.2-1.0) mg/dL AST 27 (10-42) IU/L ALT 35 (10-60) IU/L Alkaline Phosphatase 83 (42-121) IU/L Total Protein 5.7 L (6.7-8.2) g/dL Albumin 2.5 L (3.2-5.5) g/dL Globulin 3.2 (2.1-4.2) g/dL Albumin/Globulin Ratio 0.8 L (1.0-2.2) - Current Medications Current Medications: Current Medications Generic Name Dose Route Start Last Admin Trade Name Freq PRN Reason Stop Dose Admin Diphenhydramine HCl 25 mg 09/09/17 20:14 09/10/17 22:40 Benadryl Inj IVP 25 mg QPM PRN Administration Insomnia Hydralazine HCl 20 mg 09/09/17 10:00 09/11/17 21:53 Apresoline Inj IVP 20 mg Q12H AMNA Administration Cefepime HCl 1 gm/ Sodium 100 mls @ 200 mls/hr 09/04/17 19:00 09/11/17 21:53 Chloride IV 09/14/17 23:55 200 mls/hr TID AMNA Administration Acetaminophen 100 mls @ 400 mls/hr 09/05/17 21:00 09/11/17 20:19 Ofirmev IV 400 mls/hr Q6H AMNA Administration Sodium Chloride 1,000 mls @ 0 mls/hr 09/08/17 19:00 09/11/17 18:23 Normal Saline 0.9% IV 0 mls/hr .Q0M AMNA Infusion TKO Metronidazole 250 mg in 50 mls @ 100 mls/hr 09/10/17 12:00 09/11/17 18:22 Flagyl 500 Mg/100 Ml IV 09/15/17 23:59 100 mls/hr Q6HR AMNA Administration Ketorolac Tromethamine 30 mg 09/08/17 00:01 09/10/17 01:01 Toradol Inj IVP 09/13/17 00:00 30 mg Q6HR PRN Administration Pain or T>100.4 Lorazepam 2 mg 09/11/17 00:05 09/11/17 00:32 Ativan Inj (Vial) IVP 2 mg QPM PRN Administration insomnia Metoprolol Tartrate 5 mg 09/09/17 20:13 09/11/17 08:21 Lopressor Inj IVP 5 mg Q6H PRN Administration sbp>160 or hr>120 Nystatin 1 applic 09/10/17 23:00 09/11/17 21:55 Mycostatin Cream TOP 1 applic TID AMNA Administration Ondansetron HCl 4 mg 09/03/17 20:35 09/10/17 00:02 Zofran Inj IVP 4 mg Q6HR PRN Administration Nausea / Vomiting Pantoprazole Sodium 40 mg 09/04/17 21:00 09/11/17 20:18 Protonix IVP 40 mg BID AMNA Administration Prochlorperazine Edisylate 10 mg 09/03/17 20:35 09/08/17 22:11 Compazine Inj IVP 10 mg Q6HR PRN Administration Nausea / Vomiting Sodium Chloride 10 ml 09/05/17 22:00 09/11/17 21:53 Normal Saline Flush 0.9% IVP 10 ml Q8HR AMNA Administration Sodium Chloride 10 ml 09/05/17 19:08 09/11/17 18:44 Normal Saline Flush 0.9% IVP 20 ml PRN PRN Administration NEEDED PER PROVIDER ORDERS - Physical Exam Wound/Incisions: positive: Healing well (No evidence of infection.) General Appearance: positive: No acute distress, Other (Motivated to walk and get out of the hospital.) Eyes Bilateral: positive: No lid inflammation, Conjunctivae nml, No scleral icterus Neck: positive: Trachea midline Respiratory: positive: Chest non-tender, No respiratory distress, Breath sounds nml Cardiovascular: positive: Tachycardia, Systolic murmur Abdomen: positive: Nml bowel sounds, Tenderness (Incisional but less than I thought would be there.), Other (Ostomy pink and productive of stool and gas.) Rectal: positive: Other (Should NOT be done for fear of disrupting staple line and the rectum is discontinuous with the remaining bowel.) Skin: positive: Color nml Extremities: positive: Non-tender, Full ROM, Nml appearance Neurologic/Psychiatric: positive: Oriented x3, Mood/affect nml, Other (Very pleasant to speak with.) Impression/Plan - Problem List Problem List: D7 s/p emergent exploratory laparotomy with sigmoidectomy (perforated), resection of terminal ileum (necrotic) with cecum and appendix, bowel left discontinuous, abdominal washout, placement of 19 Fr Estevan drain, and abdomen left open with a plan for relook operation in 24 hours - in other words a damage control operation D6 s/p relook operation with resection of additional ileum (necrotic) and some right colon (compromised) with ileocolostomy ([id number]), end descending colostomy, abdominal washout and closure of abdomen (skin left open) 1) FEN Start general diet. Hyperalimentation stopped. Will decrease how many labs we are drawing. 2) ID D6/10 of Cefepime, D2/5 Metronidazole. Drain fluid is serous. No current indication of infection. Elevated WBC is normal. 3) DVT prophylaxis Continue TEDs and venadynes. Get patient walking. Relatively anticoagulated on lab studies. Will start Lovenox. 4) Activity This is now the MAJOR area to concentrate on. Get PT and OT to help. Goal is free ambulation in the halls. 5) Pathology Consistent with surgical findings although I think that the amount of bowel described as removed is a bit generous. 6) Self care Teach wound and ostomy care in preparation for eventual discharge. 7) Hypertension Restart her own medication and look to hospitalists for insight and help. 8) Tachycardia Only slightly worrisome but no definitive indication as to why it is occuring.
[2017-09-11] MEDS ORDERED: LOSARTAN 50 MG TABLET PO SCH (23:00)
[2017-09-12] MEDS: ACETAMINOPHEN 1,000 MG/100 ML 100 ML IV SCH ×4 (02:55→21:19)
[2017-09-12] MEDS: metroNIDAZOLE 500 MG/100 ML 250 MG/50 ML BAG IV SCH ×4 (05:29→23:53)
[2017-09-12] MEDS: CEFEPIME 1 GM in SODIUM CHLORIDE 0.9% MINIBAG 100 ML IV SCH ×3 (06:35→21:16)
[2017-09-12] MEDS: NYSTATIN CREAM 15 GM TUBE TOP SCH ×3 (07:36→21:19)
[2017-09-12] MEDS: SODIUM CHLORIDE FLUSH 0.9% 10 ML SYRINGE IVP SCH ×3 (07:36→21:19)
--- NOTE | 2017-09-12 07:48 | PROVIDER PROGRESS NOTE ---
Subjective - General Admit Date: 09/03/17 Procedure Date: 09/05/17 Post Op Days: 7 Procedure Performed: Relook with ileal resection, colon resection, ileocolostomy , end colostomy - Review of Systems Wound/Incisions: positive: Healing well (No evidence of infection.) Drain Type: 19 Fr Estevan Drain Output Description: Clear serous. Approximate mls Output: 60 mL/24 hours and decreasing General: positive: No symptoms HEENT: positive: No symptoms Pulmonary: positive: No symptoms Cardiovascular: positive: No symptoms Gastrointestinal: positive: No symptoms, Abdominal pain (Some "twinges" more right than left.) Genitourinary: positive: No symptoms Musculoskeletal: positive: No symptoms (Feeling stronger daily.) Psychiatric: positive: No symptoms Objective - Patient Data Reviewed Vital Signs: Yes Vital Signs: Vital Signs x48h Temp Pulse Resp BP Pulse Ox 09/11/17 23:57 36.6 C 117 H 28 H 115/73 97 Weight: Weight 09/10/17 09/11/17 09/12/17 23:59 23:59 23:59 Weight (kg) 72.5 kg 65.5 kg Intake & Output: Intake and Output Totals x24h 09/10/17 09/11/17 09/12/17 23:59 23:59 23:59 Intake Total 4817.898 4416.778 200 Output Total 3730 1915 260 Balance 5243.915 9660.778 -60 - Lab Results Lab Results: 09/11/17 05:40 09/11/17 05:40 Other Lab Results: Lab Results x24hrs 09/12/17 09/11/17 09/11/17 Range/Units 06:02 23:49 18:02 POC Whole Bld Glucose 100 117 H 168 H (70 - 100) mg/dL 09/11/17 Range/Units 11:41 POC Whole Bld Glucose 157 H (70 - 100) mg/dL - Current Medications Current Medications: Current Medications Generic Name Dose Route Start Last Admin Trade Name Freq PRN Reason Stop Dose Admin Diphenhydramine HCl 25 mg 09/09/17 20:14 09/10/17 22:40 Benadryl Inj IVP 25 mg QPM PRN Administration Insomnia Hydralazine HCl 20 mg 09/09/17 10:00 09/11/17 21:53 Apresoline Inj IVP 20 mg Q12H AMNA Administration Cefepime HCl 1 gm/ Sodium 100 mls @ 200 mls/hr 09/04/17 19:00 09/12/17 06:35 Chloride IV 09/14/17 23:55 200 mls/hr TID AMNA Administration Acetaminophen 100 mls @ 400 mls/hr 09/05/17 21:00 09/12/17 02:55 Ofirmev IV 400 mls/hr Q6H AMNA Administration Sodium Chloride 1,000 mls @ 0 mls/hr 09/08/17 19:00 09/11/17 18:23 Normal Saline 0.9% IV 0 mls/hr .Q0M AMNA Infusion TKO Metronidazole 250 mg in 50 mls @ 100 mls/hr 09/10/17 12:00 09/12/17 05:29 Flagyl 500 Mg/100 Ml IV 09/15/17 23:59 100 mls/hr Q6HR AMNA Administration Ketorolac Tromethamine 30 mg 09/08/17 00:01 09/10/17 01:01 Toradol Inj IVP 09/13/17 00:00 30 mg Q6HR PRN Administration Pain or T>100.4 Lorazepam 2 mg 09/11/17 00:05 09/11/17 22:49 Ativan Inj (Vial) IVP 2 mg QPM PRN Administration insomnia Metoprolol Tartrate 5 mg 09/09/17 20:13 09/11/17 08:21 Lopressor Inj IVP 5 mg Q6H PRN Administration sbp>160 or hr>120 Nystatin 1 applic 09/10/17 23:00 09/12/17 07:36 Mycostatin Cream TOP Not Given TID AMNA Ondansetron HCl 4 mg 09/03/17 20:35 09/10/17 00:02 Zofran Inj IVP 4 mg Q6HR PRN Administration Nausea / Vomiting Pantoprazole Sodium 40 mg 09/04/17 21:00 09/11/17 20:18 Protonix IVP 40 mg BID AMNA Administration Prochlorperazine Edisylate 10 mg 09/03/17 20:35 09/08/17 22:11 Compazine Inj IVP 10 mg Q6HR PRN Administration Nausea / Vomiting Sodium Chloride 10 ml 09/05/17 22:00 09/12/17 07:36 Normal Saline Flush 0.9% IVP Not Given Q8HR AMNA Sodium Chloride 10 ml 09/05/17 19:08 09/11/17 22:49 Normal Saline Flush 0.9% IVP 10 ml PRN PRN Administration NEEDED PER PROVIDER ORDERS - Physical Exam Wound/Incisions: positive: Dressing dry and intact General Appearance: positive: No acute distress Eyes Bilateral: positive: No lid inflammation, Conjunctivae nml, No scleral icterus Neck: positive: Trachea midline Respiratory: positive: Chest non-tender, No respiratory distress, Breath sounds nml Cardiovascular: positive: Tachycardia (In the low 100's.), Systolic murmur Abdomen: positive: Tenderness (Mild.), Abnml bowel sounds (Slightly decreased but present.), Other (Ostomy pink and productive.) Skin: positive: Color nml Extremities: positive: Non-tender, Full ROM, Nml appearance Neurologic/Psychiatric: positive: Oriented x3 Impression/Plan - Problem List Problem List: D8 s/p emergent exploratory laparotomy with sigmoidectomy (perforated), resection of terminal ileum (necrotic) with cecum and appendix, bowel left discontinuous, abdominal washout, placement of 19 Fr Estevan drain, and abdomen left open with a plan for relook operation in 24 hours - in other words a damage control operation D7 s/p relook operation with resection of additional ileum (necrotic) and some right colon (compromised) with ileocolostomy ([id number]), end descending colostomy, abdominal washout and closure of abdomen (skin left open) 1) FEN Start general diet. Hyperalimentation stopped. Will decrease how many labs we are drawing. 2) ID D7/10 of Cefepime, D3/5 Metronidazole. Drain fluid is serous. No current indication of infection. Elevated WBC is normal. Will check labs in AM. 3) DVT prophylaxis Continue TEDs and venadynes. Get patient walking. Relatively anticoagulated on lab studies. Will start Lovenox. 4) Activity This is now the MAJOR area to concentrate on. Get PT and OT to help. Goal is free ambulation in the halls. 5) Pathology Consistent with surgical findings although I think that the amount of bowel described as removed is a bit generous. 6) Self care Teach wound and ostomy care in preparation for eventual discharge. 7) Hypertension Restarted her own medication (Cozaar) but it was not given because she is WRONGFULLY listed as being allergic to Losartan. Her blood pressure now is tolerable I will hold the Cozaar and hydralazine and look to hospitalists for insight and help. 8) Tachycardia Only slightly worrisome but no definitive indication as to why it is occuring. May need CT scan tomorrow if WBC is elevated.
[2017-09-12] MEDS: PANTOPRAZOLE 40 MG TABLET PO SCH (08:50)
[2017-09-12] MEDS: SACCHAROMYCES BOULARDII 250 MG CAPSULE PO SCH ×2 (08:58→17:32)
[2017-09-12] MEDS: ENOXAPARIN 40 MG/0.4 ML SYRINGE SUBQ SCH (08:58)
--- NOTE | 2017-09-12 11:43 | PROVIDER PROGRESS NOTE ---
Subjective - Prog Note Date Prog Note Date: 09/12/17 Prog Note Time: 11:57 - Subjective Pt reports feeling: Improved Subjective: She is up in the chair. Ambulating in her room. Having a hard time with the idea of the ostomy. Right now she is refusing to look at it much less learn ostomy teaching She continues to be more short of breath laying down than she is sitting up. But she denies chest pain. Coughing. Abdominal pain is in her incision along her abdominal wall. Current Medications - Current Medications Current Medications: Active Medications Enoxaparin Sodium (Lovenox) [address] [facility] Last Admin: 09/12/17 08:58 Dose: 40 mg Cefepime HCl 1 gm/ Sodium (Chloride) 100 mls @ 200 mls/hr IV TID [facility] Stop: 09/14/17 23:55 Last Infusion: 09/12/17 11:37 Dose: Infused Acetaminophen (Ofirmev) 100 mls @ 400 mls/hr IV Q6H [facility] Last Infusion: 09/12/17 11:36 Dose: Infused Sodium Chloride (Normal Saline 0.9%) 1,000 mls @ 0 mls/hr IV .Q0M [facility] PRN Reason: TKO Last Infusion: 09/11/17 18:23 Dose: 0 mls/hr Metronidazole (Flagyl 500 Mg/100 Ml) 250 mg in 50 mls @ 100 mls/hr IV Q6HR [facility] Stop: 09/15/17 23:59 Last Infusion: 09/12/17 11:37 Dose: Infused Lorazepam (Ativan Inj (Vial)) 2 mg IVP QPM PRN PRN Reason: insomnia Last Admin: 09/11/17 22:49 Dose: 2 mg Metoprolol Tartrate (Lopressor Inj) 5 mg IVP Q6H PRN PRN Reason: sbp>160 or hr>120 Last Admin: 09/11/17 08:21 Dose: 5 mg Nystatin (Mycostatin Cream) [address] [facility] Last Admin: 09/12/17 07:36 Dose: Not Given Ondansetron HCl (Zofran Inj) 4 mg IVP Q6HR PRN PRN Reason: Nausea / Vomiting Last Admin: 09/10/17 00:02 Dose: 4 mg Pantoprazole Sodium (Protonix) [address] [facility] Last Admin: 09/12/17 08:50 Dose: 40 mg Prochlorperazine Edisylate (Compazine Inj) 10 mg IVP Q6HR PRN PRN Reason: Nausea / Vomiting Last Admin: 09/08/17 22:11 Dose: 10 mg Saccharomyces Boulardii (Florastor) [address] [facility] Last Admin: 09/12/17 08:58 Dose: 250 mg Sodium Chloride (Normal Saline Flush 0.9%) [address] [facility] Last Admin: 09/12/17 07:36 Dose: Not Given Sodium Chloride (Normal Saline Flush 0.9%) 10 ml IVP PRN PRN PRN Reason: NEEDED PER PROVIDER ORDERS Last Admin: 09/11/17 22:49 Dose: 10 ml Cyclobenzaprine [Flexeril] 5 mg PO TID PRN 06/19/17 Losartan [Cozaar] 50 mg PO DAILY 06/19/17 Objective - Vital Signs/Intake & Output Reviewed Vital Signs: Yes Intake & Output: Intake & Output 09/09/17 09/10/17 09/11/17 09/12/17 23:59 23:59 23:59 23:59 Intake Total 5000.205 4817.898 4416.778 550 Output Total 9115 3730 1915 260 Balance -4114.795 7356.510 9936.778 290 - Objective General Appearance: positive: No acute distress, Alert, Other (sitting up in chair) Eyes Bilateral: positive: PERRL, EOMI ENT: positive: Dry mucous membranes Respiratory: positive: Chest non-tender, Rales (at bases that come and go). negative: Wheezes, Rhonchi Cardiovascular: positive: Regular rate & rhythm, Tachycardia, Systolic murmur. negative: Gallop/S4, Friction rub Abdomen: positive: Nml bowel sounds, No distention, Other (midline incision covered in bandage. the skin I can see is warm, dry, normal). negative: Guarding, Rebound Skin: positive: Warm, Dry Extremities: positive: Full ROM, Pedal edema. negative: Joint swelling Neurologic/Psychiatric: positive: Oriented x3, CN's nml (2-12), Motor nml - Lab Results Fish Bones: 09/11/17 05:40 09/11/17 05:40 Other Labs: Lab Results x24hrs 09/12/17 09/11/17 09/11/17 Range/Units 06:02 23:49 18:02 POC Whole Bld Glucose 100 117 H 168 H (70 - 100) mg/dL 09/11/17 Range/Units 11:41 POC Whole Bld Glucose 157 H (70 - 100) mg/dL Assessment/Plan - Problem List (1) Peritonitis (acute) generalized Impression: From : Perforated distal sigmoid colon resulting in fecalent peritonitis and necrosis 09/04 had Emergent exploratory laparotomy, with sigmoidectomy, drainage of fecalent peritonitis, resection of necrotic terminal ileum and cecum (with attached appendix), placement of drain with non-closure of abdomen with plan for re-operation in 24 hours (note bowel is not in continuity). POD #8 12 had: Relook after 24 hours of ICU/medical/pressor/fluid support with resection of necrotic-questionable small bowel and right colon, ileocolostomy, abdominal washout, end descending colostomy, closure of abdomen. POD #7 Post Op Diagnosis: Known discontinuous bowel, necrotic ileum and questionable right colon She is now Day #7/10 of cefipime. Day #6 of flagyl. being followed by Gen surg. she has had NG out 09/12 and put on clears and tolerating it. Changed from ICU to Med Surg status advance diet to regular today still with drain still with wound needing bandages. (2) Anasarca Impression: associated with a patient in septic shock, needing multiple fluids for resuscitation, pressors, and is malnourished. She was given Lasix twice daily and that was stopped 09/10 because she really is third spacing and we were intravascularly depleting her. Anasarca will improve once her nutrition improves and she mobilizes her 3rd spaced fluid. Plan:, Continue to monitor intake and output. Hold the Lasix. Keep on pressing on with nutrition to improve albumin. (3) Tachycardia Impression: She had an echocardiogram done for troponins, hypotension. The echocardiogram shows possible left ventricular outflow tract obstruction as well as a an incompletely filled ventricle. She is hyperdynamic with an ejection fraction of close to 75%. I suspect she is still intravascularly depleted. But she is tanked up with blood, tanked up with IV fluids, will await for third spacing to resolve and see if it improves on its own. In the meantime she is still cutting Lopressor as needed when she gets above 120. Plan: dc neck central line get a peripheral NS 500 cc fluid bolus (4) Protein-calorie malnutrition, severe Impression: In a patient who had a catastrophic abdomen. She is now recovered from the shock. Plan: TPN was discontinued last night, was on clears yesterday Nutrition services has consulted Advance diet to regular diet. (5) Aspiration pneumonia due to vomit Impression: Happened that intubation and witnessed with her first surgery Plan, has been on cefepime and intermittent Flagyl. Stop antibiotics when the antibiotics are stopped for her abdomen. She is not hypoxic. Still slightly tachypneic. Qualifiers: Laterality: unspecified laterality (6) Anemia Impression: From acute blood loss anemia as well as nutritional anemia. Plan: Continue to monitor daily. She is status post 2 units of transfused blood. On iron supplementation as well. (7) Generalized muscle weakness Impression: After an episode of septic shock. Due to infection, immobility in bed. Has been progressing well. Has been seen by physical therapy.Able to walk 300 feet with a walker Recommend continued PT in hospital working toward goal of good LE strength and indeepndent ambualtion in hallway; pt. encouraged to do ex. between PT visits and mobilzed w/nursing as much as tolerated/possible. Expect pt. may be able to d/c home. May need walker at d/c, to be determined. (8) Hypertension Impression: transition from IV meds to po meds. she is NOT allergic to losartan. will give lopressor po. Qualifiers: Hypertension type: essential hypertension Qualified Code(s): I10 - Essential (primary) hypertension (8) Hypertension Qualifiers: Hypertension type: essential hypertension Qualified Code(s): I10 - Essential (primary) hypertension
[2017-09-12] MEDS ORDERED: SODIUM CHLORIDE 0.9% 500 ML IV ONE (12:11)
[2017-09-12] MEDS: METOPROLOL TARTRATE 50 MG TABLET PO SCH ×2 (14:03→23:17)
[2017-09-12] MEDS: LORazepam 2 MG/ML VIAL IVP PRN (23:17)
[2017-09-13] MEDS: ACETAMINOPHEN 1,000 MG/100 ML 100 ML IV SCH ×4 (02:54→20:30)
[2017-09-13 05:32] LABS: BASOPHILS # (AUTO) 0.1 10^3/uL (0.0-0.1); BASOPHILS % (AUTO) 0.7 %; EOSINOPHILS # (AUTO) 0.2 10^3/uL (0.0-0.7); EOSINOPHILS % (AUTO) 1.8 %; HCT - HEMATOCRIT 25.8 % (37.0-47.0); HGB - HEMOGLOBIN 8.4 g/dL (12.0-16.0); LYMPHOCYTES # (AUTO) 1.7 10^3/uL (1.5-3.5); LYMPHOCYTES % (AUTO) 12.8 %; MEAN CORPUSCULAR HEMOGLOBIN 28.2 pg (27.0-31.0); MEAN CORPUSCULAR HGB CONC 32.5 g/dL (32.0-36.0); MEAN CORPUSCULAR VOLUME 86.8 fL (81.0-99.0); MEAN PLATELET VOLUME 8.7 fL (7.9-10.8); MONOCYTES # (AUTO) 0.9 10^3/uL (0.0-1.0); MONOCYTES % (AUTO) 7.2 %; NEUTROPHILS # (AUTO) 10.2 10^3/uL (1.5-6.6); NEUTROPHILS % (AUTO) 77.5 %; NUCLEATED RED BLOOD CELLS AUTO 0.1 /100WBC; RED BLOOD COUNT 2.98 10^6/uL (4.20-5.40); UNCORRECTED WHITE BLOOD COUNT 13.2 x10^3/uL; WHITE BLOOD COUNT 13.2 x10^3/uL (4.8-10.8)
[2017-09-13 05:36] LABS: ALBUMIN/GLOBULIN RATIO 0.8 (1.0-2.2); BILIRUBIN,TOTAL 0.7 mg/dL (0.2-1.0); CALCIUM 8.2 mg/dL (8.5-10.3); CREATININE 0.6 mg/dL (0.4-1.0); POTASSIUM 3.5 mmol/L (3.5-5.0); TOTAL PROTEIN 5.4 g/dL (6.7-8.2)
[2017-09-13 06:03] LABS: PLATELET ESTIMATE, MANUAL NORMAL (130-450,000) (NORMAL); PLATELET MORPHOLOGY NORMAL APPEARANCE (NORMAL)
[2017-09-13] MEDS: metroNIDAZOLE 500 MG/100 ML 250 MG/50 ML BAG IV SCH ×4 (06:11→23:34)
--- NOTE | 2017-09-13 07:55 | PROVIDER PROGRESS NOTE ---
Subjective - General Admit Date: 09/03/17 Procedure Date: 09/05/17 Post Op Days: 8 Procedure Performed: Relook with ileal resection, colon resection, ileocolostomy , end colostomy - Review of Systems Wound/Incisions: positive: Dressing dry and intact Drain Type: 19 Fr Estevan Drain Output Description: Clear serous. Approximate mls Output: 155 mL/24 hours and stable General: positive: No symptoms HEENT: positive: No symptoms Pulmonary: positive: No symptoms Cardiovascular: positive: No symptoms Gastrointestinal: positive: No symptoms, Abdominal pain (Some "twinges" more right than left.) Genitourinary: positive: No symptoms Musculoskeletal: positive: No symptoms (Feeling stronger daily.) Psychiatric: positive: No symptoms Objective - Patient Data Reviewed Vital Signs: Yes Vital Signs: Vital Signs x48h Temp Pulse Resp BP Pulse Ox 09/13/17 02:15 154/87 H 09/13/17 01:50 36.8 C 105 H 17 170/96 H 97 Weight: Weight 09/11/17 09/12/17 09/13/17 23:59 23:59 23:59 Weight (kg) 65.5 kg Intake & Output: Intake and Output Totals x24h 09/11/17 09/12/17 09/13/17 23:59 23:59 23:59 Intake Total 4416.778 2240 50 Output Total 1915 2030 50 Balance 2501.778 210 0 - Lab Results Lab Results: 09/13/17 05:17 09/13/17 05:17 Other Lab Results: Lab Results x24hrs 09/13/17 09/13/17 Range/Units 05:17 05:17 WBC 13.2 H (4.8-10.8) x10^3/uL RBC 2.98 L (4.20-5.40) 10^6/uL Hgb 8.4 L (12.0-16.0) g/dL Hct 25.8 L (37.0-47.0) % MCV 86.8 (81.0-99.0) fL MCH 28.2 (27.0-31.0) pg MCHC 32.5 (32.0-36.0) g/dL RDW 15.0 (12.0-15.0) % Plt Count 407 (130-450) 10^3/uL MPV 8.7 (7.9-10.8) fL Neut # 10.2 H (1.5-6.6) 10^3/uL Lymph # 1.7 (1.5-3.5) 10^3/uL [place] # 0.9 (0.0-1.0) 10^3/uL Eos # 0.2 (0.0-0.7) 10^3/uL Baso # 0.1 (0.0-0.1) 10^3/uL Absolute Nucleated RBC 0.01 x10^3/uL Nucleated RBC % 0.1 /100WBC Manual Slide Review Indicated Platelet Estimate NORMAL (130-450,000) (NORMAL) Platelet Morphology NORMAL APPEARANCE (NORMAL) RBC Morph Micro Appear NORMAL APPEARANCE (NORMAL) Sodium 140 (135-145) mmol/L Potassium 3.5 (3.5-5.0) mmol/L Chloride 106 (101-111) mmol/L Carbon Dioxide 24 (21-32) mmol/L Anion Gap 10.0 (6-13) BUN 12 (6-20) mg/dL Creatinine 0.6 (0.4-1.0) mg/dL Estimated GFR (MDRD) 101 (>89) Glucose 99 (70-100) mg/dL Calcium 8.2 L (8.5-10.3) mg/dL Total Bilirubin 0.7 (0.2-1.0) mg/dL AST 20 (10-42) IU/L ALT 22 (10-60) IU/L Alkaline Phosphatase 71 (42-121) IU/L Total Protein 5.4 L (6.7-8.2) g/dL Albumin 2.4 L (3.2-5.5) g/dL Globulin 3.0 (2.1-4.2) g/dL Albumin/Globulin Ratio 0.8 L (1.0-2.2) - Current Medications Current Medications: Current Medications Generic Name Dose Route Start Last Admin Trade Name Freq PRN Reason Stop Dose Admin Enoxaparin Sodium 40 mg 09/12/17 09:00 09/12/17 08:58 Lovenox SUBQ 40 mg DAILY AMNA Administration Cefepime HCl 1 gm/ Sodium 100 mls @ 200 mls/hr 09/04/17 19:00 09/12/17 21:16 Chloride IV 09/14/17 23:55 100 mls/hr TID AMNA Administration Acetaminophen 100 mls @ 400 mls/hr 09/05/17 21:00 09/13/17 02:54 Ofirmev IV 400 mls/hr Q6H AMNA Administration Sodium Chloride 1,000 mls @ 0 mls/hr 09/08/17 19:00 09/11/17 18:23 Normal Saline 0.9% IV 0 mls/hr .Q0M AMNA Infusion TKO Metronidazole 250 mg in 50 mls @ 100 mls/hr 09/10/17 12:00 09/13/17 06:11 Flagyl 500 Mg/100 Ml IV 09/15/17 23:59 100 mls/hr Q6HR AMNA Administration Lorazepam 2 mg 09/11/17 00:05 09/12/17 23:17 Ativan Inj (Vial) IVP 2 mg QPM PRN Administration insomnia Metoprolol Tartrate 5 mg 09/09/17 20:13 09/11/17 08:21 Lopressor Inj IVP 5 mg Q6H PRN Administration sbp>160 or hr>120 Metoprolol Tartrate 50 mg 09/12/17 13:00 09/12/17 23:17 Lopressor PO Not Given BID AMNA Nystatin 1 applic 09/10/17 23:00 09/12/17 21:19 Mycostatin Cream TOP 1 applic TID AMNA Administration Ondansetron HCl 4 mg 09/03/17 20:35 09/10/17 00:02 Zofran Inj IVP 4 mg Q6HR PRN Administration Nausea / Vomiting Pantoprazole Sodium 40 mg 09/12/17 09:00 09/12/17 08:50 Protonix PO 40 mg QDAC AMNA Administration Prochlorperazine Edisylate 10 mg 09/03/17 20:35 09/08/17 22:11 Compazine Inj IVP 10 mg Q6HR PRN Administration Nausea / Vomiting Saccharomyces Boulardii 250 mg 09/12/17 09:00 09/12/17 17:32 Florastor PO 250 mg BIDWM AMNA Administration Sodium Chloride 10 ml 09/05/17 22:00 09/12/17 21:19 Normal Saline Flush 0.9% IVP 10 ml Q8HR AMNA Administration Sodium Chloride 10 ml 09/05/17 19:08 09/11/17 22:49 Normal Saline Flush 0.9% IVP 10 ml PRN PRN Administration NEEDED PER PROVIDER ORDERS - Physical Exam General Appearance: positive: No acute distress Eyes Bilateral: positive: No lid inflammation, Conjunctivae nml, No scleral icterus Neck: positive: Trachea midline Respiratory: positive: Chest non-tender, No respiratory distress, Breath sounds nml Cardiovascular: positive: Tachycardia (Better - again in low 100's.) Abdomen: positive: Non-tender, Nml bowel sounds, Other (Ostomy pink and productive.) Skin: positive: Color nml Extremities: positive: Non-tender, Nml appearance Neurologic/Psychiatric: positive: Oriented x3 Impression/Plan - Problem List Problem List: D9 s/p emergent exploratory laparotomy with sigmoidectomy (perforated), resection of terminal ileum (necrotic) with cecum and appendix, bowel left discontinuous, abdominal washout, placement of 19 Fr Estevan drain, and abdomen left open with a plan for relook operation in 24 hours - in other words a damage control operation D8 s/p relook operation with resection of additional ileum (necrotic) and some right colon (compromised) with ileocolostomy ([id number]), end descending colostomy, abdominal washout and closure of abdomen (skin left open) 1) FEN Start general diet. Will decrease how many labs we are drawing and today's labs are stable from previously. 2) ID D8/10 of Cefepime, D4/6 Metronidazole. Drain fluid is serous. Amount of fluid coming out drain is still a bit high - wait one more day to remove. No current indication of infection. Elevated WBC is normal. 3) DVT prophylaxis Continue TEDs and venadynes. Get patient walking. Relatively anticoagulated on lab studies. Will start Lovenox. 4) Activity This is now the MAJOR area to concentrate on. Get PT and OT to help. Goal is free ambulation in the halls. 5) Pathology Consistent with surgical findings although I think that the amount of bowel described as removed is a bit generous. 6) Self care Teach wound and ostomy care in preparation for eventual discharge. This is now the second MAJOR area to concentrate on. 7) HTN Truly appreciate the hospitalists' insight and help. 8) Tachycardia Improving - unclear etiology. No signes that infection is driving this. 9) Discharge planning Patient will require home health at least initially to help with wound and ostomy care and self care as I expect her to be deconditioned and weak following major surgery. Ostomy and wound care should be quickly taken over by the patient however reference #6.
--- NOTE | 2017-09-13 08:12 | PROVIDER PROGRESS NOTE ---
Subjective - Prog Note Date Prog Note Date: 09/13/17 Prog Note Time: 17:36 - Subjective Pt reports feeling: Improved Subjective: She is eating, able to go to the bathroom for urination. She really hates the idea of the ostomy bag. Her main pain and discomfort is when she tries to get up out of bed to use her abdominal muscles. If she did not have to use her abdominal muscles she said she be perfectly comfortable. She denies chest pain palpitations shortness of breath. The only time she feels like she cannot breathe right is when she is laying flat in her abdomen seems to press down on her. Current Medications - Current Medications Current Medications: Active Medications Enoxaparin Sodium (Lovenox) 40 mg SUBQ DAILY [facility] Last Admin: 09/13/17 09:07 Dose: 40 mg Cefepime HCl 1 gm/ Sodium (Chloride) 100 mls @ 200 mls/hr IV TID [facility] Stop: 09/14/17 23:55 Last Infusion: 09/13/17 15:15 Dose: Infused Acetaminophen (Ofirmev) 100 mls @ 400 mls/hr IV Q6H [facility] Last Infusion: 09/13/17 16:30 Dose: Infused Sodium Chloride (Normal Saline 0.9%) 1,000 mls @ 0 mls/hr IV .Q0M [facility] PRN Reason: TKO Last Infusion: 09/13/17 13:00 Dose: Infused Metronidazole (Flagyl 500 Mg/100 Ml) 250 mg in 50 mls @ 100 mls/hr IV Q6HR [facility] Stop: 09/15/17 23:59 Last Infusion: 09/13/17 13:54 Dose: Infused Lorazepam (Ativan Inj (Vial)) 2 mg IVP QPM PRN PRN Reason: insomnia Last Admin: 09/12/17 23:17 Dose: 2 mg Losartan Potassium (Cozaar) 50 mg PO DAILY [facility] Last Admin: 09/13/17 09:07 Dose: 50 mg Metoprolol Tartrate (Lopressor Inj) 5 mg IVP Q6H PRN PRN Reason: sbp>160 or hr>120 Last Admin: 09/11/17 08:21 Dose: 5 mg Metoprolol Tartrate (Lopressor) 50 mg PO BID [facility] Last Admin: 09/13/17 09:07 Dose: 50 mg Nystatin (Mycostatin Cream) 1 applic TOP TID [facility] Last Admin: 09/13/17 14:09 Dose: Not Given Ondansetron HCl (Zofran Inj) 4 mg IVP Q6HR PRN PRN Reason: Nausea / Vomiting Last Admin: 09/10/17 00:02 Dose: 4 mg Pantoprazole Sodium (Protonix) 40 mg PO QDAC [facility] Last Admin: 09/13/17 09:07 Dose: 40 mg Prochlorperazine Edisylate (Compazine Inj) 10 mg IVP Q6HR PRN PRN Reason: Nausea / Vomiting Last Admin: 09/08/17 22:11 Dose: 10 mg Saccharomyces Boulardii (Florastor) 250 mg PO BIDWM [facility] Last Admin: 09/13/17 09:07 Dose: 250 mg Sodium Chloride (Normal Saline Flush 0.9%) 10 ml IVP Q8HR [facility] Last Admin: 09/13/17 13:58 Dose: Not Given Sodium Chloride (Normal Saline Flush 0.9%) 10 ml IVP PRN PRN PRN Reason: NEEDED PER PROVIDER ORDERS Last Admin: 09/11/17 22:49 Dose: 10 ml Cyclobenzaprine [Flexeril] 5 mg PO TID PRN 06/19/17 Losartan [Cozaar] 50 mg PO DAILY 06/19/17 Objective - Vital Signs/Intake & Output Reviewed Vital Signs: Yes Vital Signs: Vital Signs x48h Temp Pulse Resp BP Pulse Ox 09/13/17 02:15 154/87 H 09/13/17 01:50 36.8 C 105 H 17 170/96 H 97 Intake & Output: Intake & Output 09/10/17 09/11/17 09/12/17 09/13/17 23:59 23:59 23:59 23:59 Intake Total 4817.898 4416.778 2240 50 Output Total 3730 1915 2030 50 Balance 1699.719 7460.778 210 0 - Objective General Appearance: positive: No acute distress, Alert Eyes Bilateral: positive: PERRL, EOMI ENT: positive: Pharynx nml Neck: positive: No JVD. negative: Stiff neck, Carotid bruit Respiratory: positive: Chest non-tender. negative: Wheezes, Rales, Rhonchi Cardiovascular: positive: Regular rate & rhythm. negative: Gallop/S4, Friction rub Abdomen: positive: No organomegaly, Nml bowel sounds, No distention. negative: Guarding, Rebound Skin: positive: Warm, Dry Extremities: positive: Full ROM, Pedal edema Neurologic/Psychiatric: positive: Oriented x3, CN's nml (2-12), Motor nml, Sensation nml - Lab Results Fish Bones: 09/13/17 05:17 09/13/17 05:17 Other Labs: Lab Results x24hrs 09/13/17 09/13/17 Range/Units 05:17 05:17 WBC 13.2 H (4.8-10.8) x10^3/uL RBC 2.98 L (4.20-5.40) 10^6/uL Hgb 8.4 L (12.0-16.0) g/dL Hct 25.8 L (37.0-47.0) % MCV 86.8 (81.0-99.0) fL MCH 28.2 (27.0-31.0) pg MCHC 32.5 (32.0-36.0) g/dL RDW 15.0 (12.0-15.0) % Plt Count 407 (130-450) 10^3/uL MPV 8.7 (7.9-10.8) fL Neut # 10.2 H (1.5-6.6) 10^3/uL Lymph # 1.7 (1.5-3.5) 10^3/uL [place] # 0.9 (0.0-1.0) 10^3/uL Eos # 0.2 (0.0-0.7) 10^3/uL Baso # 0.1 (0.0-0.1) 10^3/uL Absolute Nucleated RBC 0.01 x10^3/uL Nucleated RBC % 0.1 /100WBC Manual Slide Review Indicated Platelet Estimate NORMAL (130-450,000) (NORMAL) Platelet Morphology NORMAL APPEARANCE (NORMAL) RBC Morph Micro Appear NORMAL APPEARANCE (NORMAL) Sodium 140 (135-145) mmol/L Potassium 3.5 (3.5-5.0) mmol/L Chloride 106 (101-111) mmol/L Carbon Dioxide 24 (21-32) mmol/L Anion Gap 10.0 (6-13) BUN 12 (6-20) mg/dL Creatinine 0.6 (0.4-1.0) mg/dL Estimated GFR (MDRD) 101 (>89) Glucose 99 (70-100) mg/dL Calcium 8.2 L (8.5-10.3) mg/dL Total Bilirubin 0.7 (0.2-1.0) mg/dL AST 20 (10-42) IU/L ALT 22 (10-60) IU/L Alkaline Phosphatase 71 (42-121) IU/L Total Protein 5.4 L (6.7-8.2) g/dL Albumin 2.4 L (3.2-5.5) g/dL Globulin 3.0 (2.1-4.2) g/dL Albumin/Globulin Ratio 0.8 L (1.0-2.2) Assessment/Plan - Problem List (1) Peritonitis (acute) generalized Impression: From : Perforated distal sigmoid colon resulting in fecalent peritonitis and necrosis 09/04 had Emergent exploratory laparotomy, with sigmoidectomy, drainage of fecalent peritonitis, resection of necrotic terminal ileum and cecum (with attached appendix), placement of drain with non-closure of abdomen with plan for re-operation in 24 hours (note bowel is not in continuity). POD #9 12/6 had: Relook after 24 hours of ICU/medical/pressor/fluid support with resection of necrotic-questionable small bowel and right colon, ileocolostomy, abdominal washout, end descending colostomy, closure of abdomen. POD #8 Post Op Diagnosis: Known discontinuous bowel, necrotic ileum and questionable right colon She is now Day #8/10 of cefipime. Day #7 of flagyl. being followed by Gen surg. she has had NG out 12 and put on clears and tolerating it. Changed from ICU to Med Surg status and diet advanced to regular diet / Plan: still with drain still with wound needing bandages. still need ostomy training and wound managment training. Plan is dc as soon as she is up to being able to do the ostomy. (2) Anasarca Impression: associated with a patient in septic shock, needing multiple fluids for resuscitation, pressors, and is malnourished. She was given Lasix twice daily and that was stopped 09/10 because she really is third spacing and we were intravascularly depleting her. Anasarca will improve once her nutrition improves and she mobilizes her 3rd spaced fluid. Plan:, Continue to monitor intake and output. Hold the Lasix. Keep on pressing on with nutrition to improve albumin. (3) Tachycardia Impression: She had an echocardiogram done for troponins, hypotension. The echocardiogram shows possible left ventricular outflow tract obstruction as well as a an incompletely filled ventricle. She is hyperdynamic with an ejection fraction of close to 75%. I suspect she is still intravascularly depleted. But she is tanked up with blood, tanked up with IV fluids, will await for third spacing to resolve and see if it improves on its own. In the meantime she is still cutting Lopressor as needed when she gets above 120. Plan: dc neck central line get a peripheral NS 500 cc fluid bolus done yesteday really didn't make much of a change. (4) Protein-calorie malnutrition, severe Impression: In a patient who had a catastrophic abdomen. She is now recovered from the shock. Plan: TPN was discontinued , advanced to clears and regular last night and today . Nutrition services has consulted (5) Aspiration pneumonia due to vomit Impression: Happened that intubation and witnessed with her first surgery Plan, has been on cefepime and intermittent Flagyl. Stop antibiotics when the antibiotics are stopped for her abdomen. She is not hypoxic. Still slightly tachypneic. Qualifiers: Laterality: unspecified laterality (6) Anemia Impression: From acute blood loss anemia as well as nutritional anemia. She is drifting down again and is at above 8 Transfuse if <7. today stable. Plan: Continue to monitor daily. She is status post 2 units of transfused blood. On iron supplementation as well. (7) Generalized muscle weakness Impression: After an episode of septic shock. Due to infection, immobility in bed. Has been progressing well. Has been seen by physical therapy.Able to walk 300 feet with a walker Recommend continued PT in hospital working toward goal of good LE strength and indeepndent ambualtion in hallway; pt. encouraged to do ex. between PT visits and mobilzed w/nursing as much as tolerated/possible. Expect pt. may be able to d/c home. May need walker at d/c, to be determined. (8) Hypertension Impression: transition from IV meds to po meds. she is NOT allergic to losartan. I have given lopressor po and while pulse has responded, BP still up 150's. resume home losartan. Qualifiers: Hypertension type: essential hypertension Qualified Code(s): I10 - Essential (primary) hypertension
[2017-09-13] MEDS: LOSARTAN 50 MG TABLET PO SCH (09:07)
[2017-09-13] MEDS: ENOXAPARIN 40 MG/0.4 ML SYRINGE SUBQ SCH (09:07)
[2017-09-13] MEDS: METOPROLOL TARTRATE 50 MG TABLET PO SCH ×2 (09:07→20:48)
[2017-09-13] MEDS: SACCHAROMYCES BOULARDII 250 MG CAPSULE PO SCH ×2 (09:07→17:42)
[2017-09-13] MEDS: PANTOPRAZOLE 40 MG TABLET PO SCH (09:07)
[2017-09-13] MEDS: NYSTATIN CREAM 15 GM TUBE TOP SCH ×3 (09:08→20:48)
[2017-09-13] MEDS: SODIUM CHLORIDE FLUSH 0.9% 10 ML SYRINGE IVP SCH ×3 (09:08→21:04)
[2017-09-13] MEDS: CEFEPIME 1 GM in SODIUM CHLORIDE 0.9% MINIBAG 100 ML IV SCH ×3 (10:22→21:03)
[2017-09-13] MEDS ORDERED: SODIUM CHLORIDE FLUSH 0.9% 10 ML SYRINGE IVP ONE ×2 (17:42→20:50)
[2017-09-13] MEDS: LORazepam 2 MG/ML VIAL IVP PRN (22:41)
[2017-09-13] MEDS: SODIUM CHLORIDE FLUSH 0.9% 10 ML SYRINGE IVP PRN (23:34)
[2017-09-14] MEDS: ACETAMINOPHEN 1,000 MG/100 ML 100 ML IV SCH ×3 (02:14→14:53)
[2017-09-14] MEDS: CEFEPIME 1 GM in SODIUM CHLORIDE 0.9% MINIBAG 100 ML IV SCH ×3 (05:41→21:00)
[2017-09-14] MEDS: SODIUM CHLORIDE FLUSH 0.9% 10 ML SYRINGE IVP SCH ×3 (05:41→20:46)
[2017-09-14] MEDS: NYSTATIN CREAM 15 GM TUBE TOP SCH ×3 (06:40→20:46)
[2017-09-14] MEDS: PANTOPRAZOLE 40 MG TABLET PO SCH (06:42)
[2017-09-14] MEDS: metroNIDAZOLE 500 MG/100 ML 250 MG/50 ML BAG IV SCH ×4 (06:43→23:45)
[2017-09-14] MEDS: SACCHAROMYCES BOULARDII 250 MG CAPSULE PO SCH ×2 (08:27→17:51)
[2017-09-14] MEDS: METOPROLOL TARTRATE 50 MG TABLET PO SCH ×2 (08:27→20:41)
[2017-09-14] MEDS: LOSARTAN 50 MG TABLET PO SCH (08:28)
[2017-09-14] MEDS: ENOXAPARIN 40 MG/0.4 ML SYRINGE SUBQ SCH (08:28)
[2017-09-14] MEDS ORDERED: METOPROLOL TARTRATE 50 MG TABLET PO SCH (08:30)
[2017-09-14] MEDS ORDERED: METOPROLOL TARTRATE 50 MG TABLET PO ONE (10:00)
--- NOTE | 2017-09-14 15:18 | Discharge Plan ---
Discharge Plan Disposition: 01 Home, Self Care Condition: Good Prescriptions: Metoprolol Tartrate [Lopressor] 100 mg PO BID #60 tablet Nystatin Cream [Mycostatin Cream] 1 applic TOP TID #2 tube Oxycodone HCl/Acetaminophen [Percocet 5-325 mg Tablet] 1 each PO Q4H PRN #30 tablet PRN Reason: Pain Diet: Regular Activity Restrictions: Additional Comments (walk as much as possible, no lifting greater than 15 lbs for 6 weeks) Shower Restrictions: Yes (wash abd wound with soap and water daily,pack daily) Driving Restrictions: Yes (no driving for 6 weeks) Instruction Topics: Colostomy Pouch Change, Ostomy Pouch Empty, Nutrition Post Surgery, Colostomy Additional Instructions or Follow Up instructions: You were admitted to the hospital because a piece of your bowel had become infected and necrotic and . This in turn caused generalized peritonitis, severe infection and body shock. You underwent 2 surgeries to remove the infected bowel, and have now recovered. However you still have an abdominal wound, and a colostomy that you need to be comfortable with. Make sure that you clean your wound every day with soap and water and dry carefully. Keep clean. Change the dressing according to nursing and Dr. Hernández instructions. You have been counseled and educated in how to change your ostomy bag. I will be ordering home health to check on your wound and to help you with your dressing changes. You have requested a small amount of pain medicine just in case you have increased pain. While here your blood pressure was a little elevated and you are on 2 blood pressure pills to go home on. Please follow-up with your primary care provider to check your blood pressure, and to check your wounds as well. Please see Dr. Hernández in his office in 1-2 weeks in follow-up. He has instructed you not to lift any weight greater than 15 pounds. You may resume normal activities such as light housekeeping chores, small quick meals, and he encourages you to walk. If you develop fever, chills, wound drainage, redness and swelling around the wound or ostomy, please call Dr. Hernández immediately. Follow-Up Care: Home Health - RN No Smoking: If you smoke, Please STOP! Call for help. Follow-up with: Sasha Wilcox ARNP [Primary Care Provider] -
[2017-09-14] MEDS: MULTIVITAMIN W/MINERALS TABLET PO SCH (16:01)
[2017-09-14] MEDS: CHOLECALCIFEROL 1,000 UNIT TABLET PO SCH (16:01)
[2017-09-14] MEDS: SODIUM CHLORIDE FLUSH 0.9% 10 ML SYRINGE IVP PRN ×3 (16:14→23:45)
--- NOTE | 2017-09-14 18:21 | PROVIDER PROGRESS NOTE ---
Subjective - Prog Note Date Prog Note Date: 09/14/17 Prog Note Time: 18:19 - Subjective Subjective: By now, she has recovered very nicely from an initial admission where she was in septic shock, and had a very grim prognosis. Our main problem as the medical service has been controlling her blood pressure, heart rate. General surgery has been actively involved in her nutrition, wound management etc. She is now ambulating in the room, hallway eating a regular diet. General surgery hopes to finish 10 days of antibiotics, finished having her educated with her ostomy treatment, and complete wound training as well. Nursing has been working very hard to educate her, and she has had ostomy training and wound care training for at least 2-3 days. It still very hard for her and she does not like looking at her ostomy. Current Medications - Current Medications Current Medications: Active Medications Acetaminophen (Tylenol) 650 mg PO Q4HR PRN PRN Reason: Pain or Fever > 38C (100.4F) Cholecalciferol (Vitamin D3) 2,000 unit PO DAILY [facility] Last Admin: 09/14/17 16:01 Dose: 2,000 unit Enoxaparin Sodium (Lovenox) 40 mg SUBQ DAILY [facility] Last Admin: 09/14/17 08:28 Dose: 40 mg Cefepime HCl 1 gm/ Sodium (Chloride) 100 mls @ 200 mls/hr IV TID [facility] Stop: 09/14/17 23:55 Last Infusion: 09/14/17 14:26 Dose: Infused Sodium Chloride (Normal Saline 0.9%) 1,000 mls @ 0 mls/hr IV .Q0M [facility] PRN Reason: TKO Last Infusion: 09/13/17 13:00 Dose: Infused Metronidazole (Flagyl 500 Mg/100 Ml) 250 mg in 50 mls @ 100 mls/hr IV Q6HR [facility] Stop: 09/15/17 11:59 Last Infusion: 09/14/17 13:16 Dose: Infused Lorazepam (Ativan Inj (Vial)) 2 mg IVP QPM PRN PRN Reason: insomnia Last Admin: 09/13/17 22:41 Dose: 2 mg Losartan Potassium (Cozaar) 50 mg PO DAILY [facility] Last Admin: 09/14/17 08:28 Dose: 50 mg Metoprolol Tartrate (Lopressor Inj) 5 mg IVP Q6H PRN PRN Reason: sbp>160 or hr>120 Last Admin: 09/11/17 08:21 Dose: 5 mg Metoprolol Tartrate (Lopressor) 100 mg PO BID [facility] Multivitamins/Minerals (Theragran M) 1 tab PO DAILYWM [facility] Last Admin: 09/14/17 16:01 Dose: 1 tab Nystatin (Mycostatin Cream) 1 applic TOP TID [facility] Last Admin: 09/14/17 14:54 Dose: 1 applic Ondansetron HCl (Zofran Inj) 4 mg IVP Q6HR PRN PRN Reason: Nausea / Vomiting Last Admin: 09/10/17 00:02 Dose: 4 mg Pantoprazole Sodium (Protonix) 40 mg PO QDAC [facility] Last Admin: 09/14/17 06:42 Dose: 40 mg Prochlorperazine Edisylate (Compazine Inj) 10 mg IVP Q6HR PRN PRN Reason: Nausea / Vomiting Last Admin: 09/08/17 22:11 Dose: 10 mg Saccharomyces Boulardii (Florastor) 250 mg PO BIDWM [facility] Last Admin: 09/14/17 17:51 Dose: 250 mg Sodium Chloride (Normal Saline Flush 0.9%) 10 ml IVP Q8HR [facility] Last Admin: 09/14/17 14:10 Dose: 10 ml Sodium Chloride (Normal Saline Flush 0.9%) 10 ml IVP PRN PRN PRN Reason: NEEDED PER PROVIDER ORDERS Last Admin: 09/14/17 16:14 Dose: 10 ml Cyclobenzaprine [Flexeril] 5 mg PO TID PRN 06/19/17 Losartan [Cozaar] 50 mg PO DAILY 06/19/17 Objective - Vital Signs/Intake & Output Reviewed Vital Signs: Yes Vital Signs: Vital Signs x48h Temp Pulse Resp BP BP Pulse Ox 09/14/17 15:33 37.0 C 88 20 162/82 H 97 09/14/17 10:49 167/97 H Intake & Output: Intake & Output 09/11/17 09/12/17 09/13/17 09/14/17 23:59 23:59 23:59 23:59 Intake Total 4416.778 2240 3300.333 1250 Output Total 1915 2030 550 365 Balance 2501.727 361 4280.333 885 - Objective General Appearance: positive: No acute distress, Alert Eyes Bilateral: positive: PERRL ENT: positive: Pharynx nml Neck: positive: No JVD. negative: Stiff neck, Carotid bruit Respiratory: positive: Chest non-tender. negative: Wheezes, Rales, Rhonchi Cardiovascular: positive: Regular rate & rhythm, Systolic murmur. negative: Gallop/S4, Friction rub Abdomen: positive: Non-tender, No organomegaly, Nml bowel sounds, Other (Wound is packed, surrounding skin without redness or induration or drainage) Skin: positive: Warm, Dry, Other (Anasarca is improving and almost gone) Extremities: positive: Full ROM, Pedal edema (mild) Neurologic/Psychiatric: positive: Oriented x3, CN's nml (2-12), Motor nml - Lab Results Fish Bones: 09/13/17 05:17 09/13/17 05:17 Assessment/Plan - Problem List (1) Hypertension Impression: At this point this is the main problem we are following. We increased her Lopressor to 100 mg p.o. twice daily this morning to control her heart rate as well. Goals being achieved by late this afternoon and into the evening. General surgery plans on discharging when she is completed 10 days of IV antibiotics, and she is comfortable with her ostomy and wound care. I will be ordering home health for wound care follow-up and ostomy follow-up.
[2017-09-14] MEDS: LORazepam 2 MG/ML VIAL IVP PRN (22:27)
[2017-09-15] MEDS: metroNIDAZOLE 500 MG/100 ML 250 MG/50 ML BAG IV SCH (06:14)
[2017-09-15] MEDS: SODIUM CHLORIDE FLUSH 0.9% 10 ML SYRINGE IVP SCH ×3 (06:14→20:23)
[2017-09-15] MEDS: ACETAMINOPHEN 325 MG TABLET PO PRN ×4 (06:24→20:22)
[2017-09-15] MEDS: PANTOPRAZOLE 40 MG TABLET PO SCH (06:24)
[2017-09-15] MEDS: NYSTATIN CREAM 15 GM TUBE TOP SCH ×3 (06:25→20:23)
[2017-09-15] MEDS: METOPROLOL TARTRATE 50 MG TABLET PO SCH ×2 (08:26→20:20)
[2017-09-15] MEDS: SACCHAROMYCES BOULARDII 250 MG CAPSULE PO SCH ×2 (08:26→16:32)
[2017-09-15] MEDS: MULTIVITAMIN W/MINERALS TABLET PO SCH (08:26)
[2017-09-15] MEDS: CHOLECALCIFEROL 1,000 UNIT TABLET PO SCH (08:27)
[2017-09-15] MEDS: ENOXAPARIN 40 MG/0.4 ML SYRINGE SUBQ SCH (08:27)
[2017-09-15] MEDS: LOSARTAN 50 MG TABLET PO SCH (08:27)
--- NOTE | 2017-09-15 11:26 | PROVIDER PROGRESS NOTE ---
Subjective - Prog Note Date Prog Note Date: 09/15/17 Prog Note Time: 11:26 - Subjective Subjective: she is apprehensive about the ostomy care and wound care. Nursing has worked closely with her as had Clinical educators. They are slowly getting her to look at the wound and ostomy, learn how to take care of it. today is a big day of doing it herself. She also stops abx at 10 days. Current Medications - Current Medications Current Medications: Active Medications Acetaminophen (Tylenol) 650 mg PO Q4HR PRN PRN Reason: Pain or Fever > 38C (100.4F) Last Admin: 09/15/17 06:24 Dose: 650 mg Cholecalciferol (Vitamin D3) 2,000 unit PO DAILY [facility] Last Admin: 09/15/17 08:27 Dose: 2,000 unit Enoxaparin Sodium (Lovenox) 40 mg SUBQ DAILY [facility] Last Admin: 09/15/17 08:27 Dose: 40 mg Sodium Chloride (Normal Saline 0.9%) 1,000 mls @ 0 mls/hr IV .Q0M [facility] PRN Reason: TKO Last Infusion: 09/13/17 13:00 Dose: Infused Metronidazole (Flagyl 500 Mg/100 Ml) 250 mg in 50 mls @ 100 mls/hr IV Q6HR [facility] Stop: 09/15/17 11:59 Last Infusion: 09/15/17 06:55 Dose: Infused Lorazepam (Ativan Inj (Vial)) 2 mg IVP QPM PRN PRN Reason: insomnia Last Admin: 09/14/17 22:27 Dose: 2 mg Losartan Potassium (Cozaar) 50 mg PO DAILY [facility] Last Admin: 09/15/17 08:27 Dose: 50 mg Metoprolol Tartrate (Lopressor Inj) 5 mg IVP Q6H PRN PRN Reason: sbp>160 or hr>120 Last Admin: 09/11/17 08:21 Dose: 5 mg Metoprolol Tartrate (Lopressor) 100 mg PO BID [facility] Last Admin: 09/15/17 08:26 Dose: 100 mg Multivitamins/Minerals (Theragran M) 1 tab PO DAILYWM [facility] Last Admin: 09/15/17 08:26 Dose: 1 tab Nystatin (Mycostatin Cream) 1 applic TOP TID [facility] Last Admin: 09/15/17 06:25 Dose: 1 applic Ondansetron HCl (Zofran Inj) 4 mg IVP Q6HR PRN PRN Reason: Nausea / Vomiting Last Admin: 09/10/17 00:02 Dose: 4 mg Pantoprazole Sodium (Protonix) 40 mg PO QDAC [facility] Last Admin: 09/15/17 06:24 Dose: 40 mg Prochlorperazine Edisylate (Compazine Inj) 10 mg IVP Q6HR PRN PRN Reason: Nausea / Vomiting Last Admin: 09/08/17 22:11 Dose: 10 mg Saccharomyces Boulardii (Florastor) 250 mg PO BIDWM [facility] Last Admin: 09/15/17 08:26 Dose: 250 mg Sodium Chloride (Normal Saline Flush 0.9%) 10 ml IVP Q8HR [facility] Last Admin: 09/15/17 06:14 Dose: 10 ml Sodium Chloride (Normal Saline Flush 0.9%) 10 ml IVP PRN PRN PRN Reason: NEEDED PER PROVIDER ORDERS Last Admin: 09/14/17 23:45 Dose: 10 ml Cyclobenzaprine [Flexeril] 5 mg PO TID PRN 06/19/17 Losartan [Cozaar] 50 mg PO DAILY 06/19/17 Objective - Vital Signs/Intake & Output Reviewed Vital Signs: Yes Vital Signs: Vital Signs x48h Temp Pulse Resp BP BP Pulse Ox 09/15/17 08:26 127/74 09/15/17 07:39 37.0 C 91 18 124/74 96 Intake & Output: Intake & Output 09/12/17 09/13/17 09/14/17 09/15/17 23:59 23:59 23:59 23:59 Intake Total 2240 3300.333 1650 740 Output Total 2030 550 365 Balance 210 2750.333 1285 740 - Objective General Appearance: positive: No acute distress, Alert, Other (thin middle aged white female) Eyes Bilateral: positive: PERRL, EOMI ENT: positive: Pharynx nml Neck: positive: No JVD. negative: Lymphadenopathy (R), Lymphadenopathy (L), Carotid bruit Respiratory: positive: Chest non-tender. negative: Wheezes, Rales, Rhonchi Cardiovascular: positive: Regular rate & rhythm. negative: Gallop/S4, Friction rub Abdomen: positive: Non-tender, Nml bowel sounds, No distention, Other (wound packed, no surrounding induration,). negative: Guarding, Rebound Skin: positive: Warm, Dry Extremities: positive: Full ROM, No pedal edema Neurologic/Psychiatric: positive: Oriented x3, CN's nml (2-12), Motor nml - Lab Results Fish Bones: 09/13/17 05:17 09/13/17 05:17 Other Labs: Lab Results x24hrs 09/15/17 09/15/17 Range/Units 04:38 04:35 Prealbumin 26 (18-45) mg/dL Vitamin B12 3087 H (180-914) pg/mL Assessment/Plan - Problem List (1) Hypertension Impression: better control. no change in meds. Qualifiers: Hypertension type: essential hypertension Qualified Code(s): I10 - Essential (primary) hypertension (2) Peritonitis (acute) generalized Impression: s/p 2 surgeries. now eating regular diet. pain is controlled. ambulating. waiting for training for bandages and ostomy to be comfortable for her. abx stopped today. plan for dc in am if able to care for self.
--- NOTE | 2017-09-15 13:01 | PROVIDER PROGRESS NOTE ---
Subjective - General Admit Date: 09/03/17 Procedure Date: 09/05/17 Post Op Days: 10 Procedure Performed: Relook with ileal resection, colon resection, ileocolostomy , end colostomy - Review of Systems Wound/Incisions: positive: Dressing dry and intact Drain Type: 19 Fr Estevan Drain Output Description: Clear serous. Approximate mls Output: 155 mL/24 hours and stable General: positive: No symptoms HEENT: positive: No symptoms Pulmonary: positive: No symptoms Cardiovascular: positive: No symptoms Gastrointestinal: positive: No symptoms, Abdominal pain (Some "twinges" more right than left.) Genitourinary: positive: No symptoms Musculoskeletal: positive: No symptoms (Feeling stronger daily.) Psychiatric: positive: No symptoms Objective - Patient Data Vital Signs: Vital Signs x48h Temp Pulse Resp BP BP Pulse Ox 09/15/17 08:26 127/74 09/15/17 07:39 37.0 C 91 18 124/74 96 Weight: Weight 09/13/17 09/14/17 09/15/17 23:59 23:59 23:59 Weight (kg) 63.5 kg 61 kg 59.5 kg Intake & Output: Intake and Output Totals x24h 09/13/17 09/14/17 09/15/17 23:59 23:59 23:59 Intake Total 3300.333 1650 740 Output Total 550 365 Balance 2750.333 1285 740 - Lab Results Lab Results: 09/13/17 05:17 09/13/17 05:17 Other Lab Results: Lab Results x24hrs 09/15/17 09/15/17 Range/Units 04:38 04:35 Prealbumin 26 (18-45) mg/dL Vitamin B12 3087 H (180-914) pg/mL - Current Medications Current Medications: Current Medications Generic Name Dose Route Start Last Admin Trade Name Freq PRN Reason Stop Dose Admin Acetaminophen 650 mg 09/14/17 14:58 09/15/17 12:26 Tylenol PO 650 mg Q4HR PRN Administration Pain or Fever > 38C (100.4F) Cholecalciferol 2,000 unit 09/14/17 15:00 09/15/17 08:27 Vitamin D3 PO 2,000 unit DAILY AMNA Administration Losartan Potassium 50 mg 09/13/17 09:00 09/15/17 08:27 Cozaar PO 50 mg DAILY AMNA Administration Metoprolol Tartrate 100 mg 09/14/17 21:00 09/15/17 08:26 Lopressor PO 100 mg BID AMNA Administration Multivitamins/Minerals 1 tab 09/14/17 15:00 09/15/17 08:26 Theragran M PO 1 tab DAILYWM AMNA Administration Nystatin 1 applic 09/10/17 23:00 09/15/17 06:25 Mycostatin Cream TOP 1 applic TID AMNA Administration Ondansetron HCl 4 mg 09/03/17 20:35 09/10/17 00:02 Zofran Inj IVP 4 mg Q6HR PRN Administration Nausea / Vomiting Pantoprazole Sodium 40 mg 09/12/17 09:00 09/15/17 06:24 Protonix PO 40 mg QDAC AMNA Administration Prochlorperazine Edisylate 10 mg 09/03/17 20:35 09/08/17 22:11 Compazine Inj IVP 10 mg Q6HR PRN Administration Nausea / Vomiting Saccharomyces Boulardii 250 mg 09/12/17 09:00 09/15/17 08:26 Florastor PO 250 mg BIDWM AMNA Administration Sodium Chloride 10 ml 09/05/17 22:00 09/15/17 06:14 Normal Saline Flush 0.9% IVP 10 ml Q8HR AMNA Administration Sodium Chloride 10 ml 09/05/17 19:08 09/14/17 23:45 Normal Saline Flush 0.9% IVP 10 ml PRN PRN Administration NEEDED PER PROVIDER ORDERS - Physical Exam Rectal: positive: Other (open wound clean without evidence of infection. Ostomy llq functioning.) Impression/Plan - Problem List Problem List: s/p hartmans's procedure right colon resection/ostomy, s/p ileostomy takedown. ostomy functioning. Oral intake improving but still needs to be better. Start iron from anemia Start supplements Teach ostomy care/wound intermediate health set up for discharge on Sunday Mobilize patient.
[2017-09-15] MEDS: FERROUS SULFATE 325 MG TABLET PO SCH (14:49)
[2017-09-15] MEDS: LORazepam 0.5 MG TABLET PO PRN (20:22)
[2017-09-16] MEDS: ACETAMINOPHEN 325 MG TABLET PO PRN ×5 (00:11→21:11)
[2017-09-16] MEDS: LORazepam 0.5 MG TABLET PO PRN ×2 (02:31→21:11)
[2017-09-16] MEDS: PANTOPRAZOLE 40 MG TABLET PO SCH (06:47)
[2017-09-16] MEDS: NYSTATIN CREAM 15 GM TUBE TOP SCH ×3 (06:48→21:11)
[2017-09-16] MEDS: SODIUM CHLORIDE FLUSH 0.9% 10 ML SYRINGE IVP SCH ×3 (06:48→21:11)
[2017-09-16] MEDS: CHOLECALCIFEROL 1,000 UNIT TABLET PO SCH (08:36)
[2017-09-16] MEDS: METOPROLOL TARTRATE 50 MG TABLET PO SCH ×2 (08:36→21:10)
[2017-09-16] MEDS: FERROUS SULFATE 325 MG TABLET PO SCH (08:36)
[2017-09-16] MEDS: SACCHAROMYCES BOULARDII 250 MG CAPSULE PO SCH ×2 (08:36→16:24)
[2017-09-16] MEDS: LOSARTAN 50 MG TABLET PO SCH (08:36)
[2017-09-16] MEDS: MULTIVITAMIN W/MINERALS TABLET PO SCH (08:36)
--- NOTE | 2017-09-16 12:38 | PROVIDER PROGRESS NOTE ---
Subjective - Prog Note Date Prog Note Date: 09/16/17 Prog Note Time: 12:36 - Subjective Pt reports feeling: Improved Subjective: She is still unsure about her ostomy care and wound care. She finds it very alarming. As such, she wants to stay another day even though she is medically stable enough to be discharged. She has been willing to sign the ABN. She denies chest pain, palpitations, shortness of breath. She really wants to see the organ pipe finisher before she leaves because she is a "poor eater" and she wants to maximize her nutritional status. She would like to follow-up with Dr. Hernández 1 more time before she leaves the hospital because she has ultimate earl and his judgment and opinion. She also wanted to give her family 1 more day to "wrap their heads around" the fact that she was ready to leave. Her [id number] is going to come help take care of her and be at her side. Her other sister is also going to help. But they were not ready psychologically to see her leave yet. She is walking the hallways. Walking in her room to the bathroom. She has been able to do the stair challenge with physical therapy. She is eating the food here at the hospital. Has good ostomy output, vitals are stable, afebrile. Tachycardia has resolved. Current Medications - Current Medications Current Medications: Active Medications Acetaminophen (Tylenol) 650 mg PO Q4HR PRN PRN Reason: Pain or Fever > 38C (100.4F) Last Admin: 09/16/17 06:48 Dose: 650 mg Cholecalciferol (Vitamin D3) 2,000 unit PO DAILY [facility] Last Admin: 09/16/17 08:36 Dose: 2,000 unit Ferrous Sulfate (Feosol) 325 mg PO DAILYWM [facility] Last Admin: 09/16/17 08:36 Dose: 325 mg Lorazepam (Ativan) 0.5 mg PO Q6H PRN PRN Reason: Anxiety Last Admin: 09/16/17 02:31 Dose: 0.5 mg Losartan Potassium (Cozaar) 50 mg PO DAILY [facility] Last Admin: 09/16/17 08:36 Dose: 50 mg Metoprolol Tartrate (Lopressor) 100 mg PO BID [facility] Last Admin: 09/16/17 08:36 Dose: 100 mg Multivitamins/Minerals (Theragran M) 1 tab PO DAILYWM [facility] Last Admin: 09/16/17 08:36 Dose: 1 tab Nystatin (Mycostatin Cream) 1 applic TOP TID [facility] Last Admin: 09/16/17 06:48 Dose: 1 applic Ondansetron HCl (Zofran Inj) 4 mg IVP Q6HR PRN PRN Reason: Nausea / Vomiting Last Admin: 09/10/17 00:02 Dose: 4 mg Pantoprazole Sodium (Protonix) 40 mg PO QDAC [facility] Last Admin: 09/16/17 06:47 Dose: 40 mg Prochlorperazine Edisylate (Compazine Inj) 10 mg IVP Q6HR PRN PRN Reason: Nausea / Vomiting Last Admin: 09/08/17 22:11 Dose: 10 mg Saccharomyces Boulardii (Florastor) 250 mg PO BIDWM [facility] Last Admin: 09/16/17 08:36 Dose: 250 mg Sodium Chloride (Normal Saline Flush 0.9%) 10 ml IVP Q8HR [facility] Last Admin: 09/16/17 06:48 Dose: 10 ml Sodium Chloride (Normal Saline Flush 0.9%) 10 ml IVP PRN PRN PRN Reason: NEEDED PER PROVIDER ORDERS Last Admin: 09/14/17 23:45 Dose: 10 ml Cyclobenzaprine [Flexeril] 5 mg PO TID PRN 06/19/17 Losartan [Cozaar] 50 mg PO DAILY 06/19/17 Objective - Vital Signs/Intake & Output Reviewed Vital Signs: Yes Vital Signs: Vital Signs x48h Temp Pulse Resp BP Pulse Ox 09/16/17 08:00 36.9 C 94 18 150/92 H 98 Intake & Output: Intake & Output 09/13/17 09/14/17 09/15/17 09/16/17 23:59 23:59 23:59 23:59 Intake Total 3300.333 1650 1220 520 Output Total 550 365 400 Balance 2750.333 1285 820 520 - Objective General Appearance: positive: No acute distress, Alert, Other (thin middle aged white female who looks stated age, cheerful, comfortable) Eyes Bilateral: positive: PERRL, EOMI ENT: positive: Pharynx nml Neck: positive: No JVD. negative: Stiff neck, Carotid bruit Respiratory: positive: Chest non-tender. negative: Wheezes, Rales, Rhonchi Cardiovascular: positive: Regular rate & rhythm. negative: JVD present, Gallop/ S4, Friction rub Abdomen: positive: Non-tender, No organomegaly, Nml bowel sounds, No distention , Other (wound packed and no surrounding erythema, induration, twinge at LL edge of wound) Skin: positive: No rash, Warm, Dry Extremities: positive: Full ROM, No pedal edema Neurologic/Psychiatric: positive: Oriented x3, CN's nml (2-12), Motor nml, Sensation nml - Lab Results Fish Bones: 09/13/17 05:17 09/13/17 05:17 Assessment/Plan - Problem List (1) Peritonitis (acute) generalized Impression: From : Perforated distal sigmoid colon resulting in fecalent peritonitis and necrosis / had Emergent exploratory laparotomy, with sigmoidectomy, drainage of fecalent peritonitis, resection of necrotic terminal ileum and cecum (with attached appendix), placement of drain with non-closure of abdomen with plan for re-operation in 24 hours (note bowel is not in continuity). POD #12 12/6 had: Relook after 24 hours of ICU/medical/pressor/fluid support with resection of necrotic-questionable small bowel and right colon, ileocolostomy, abdominal washout, end descending colostomy, closure of abdomen. POD #11 Post Op Diagnosis: Known discontinuous bowel, necrotic ileum and questionable right colon s/p 10 days of cefipime, completed 09/14. s/p 8 Days of flagyl. being followed by Gen surg. she has had NG out 12 and put on clears and tolerating it. Changed from ICU to Med Surg status and diet advanced to regular diet /. She has progressed with ambulation, eating and endurance. No fever, no hypoxia. But not wanting to go home until tomorrow for psychological reassurance of one more day here. Plan: dc in am no lifting >15 lbs no driving for now keep wound clean and dry bath daily and wash wound with soap and water then repack, continue with instruction and plan for dc in am. (2) Anasarca Impression: resolved. associated with a patient in septic shock, needing multiple fluids for resuscitation, pressors, and is malnourished. She was given Lasix twice daily and that was stopped 09/10 because she really is third spacing and we were intravascularly depleting her. Anasarca has improved once her nutrition improved and she mobilized her 3rd spaced fluid. Plan: Keep on pressing on with nutrition to improve albumin. She will meet with organ pipe finisher before dc tomorrow. (3) Tachycardia Impression: resolved. She had an echocardiogram done for troponins, hypotension. The echocardiogram shows possible left ventricular outflow tract obstruction as well as a an incompletely filled ventricle. She is hyperdynamic with an ejection fraction of close to 75%. I suspect she was intravascularly depleted. But she is tanked up with blood, tanked up with IV fluids,third spacing to resolved . On lopressor po and increased from 50 mg po bid to 100 mg po bid. (4) Protein-calorie malnutrition, severe Impression: In a patient who had a catastrophic abdomen. She is now recovered from the shock. Plan: she has improved to the point she is eating a regular diet and albumin is recovering.Nutrition consult in am. (5) Aspiration pneumonia due to vomit Impression: Happened with intubation and witnessed with her first surgery Plan, has been on cefepime and intermittent Flagyl. Completed abx. Qualifiers: Laterality: unspecified laterality (6) Anemia Impression: From acute blood loss anemia as well as nutritional anemia. She was 8.4 on 09/13 Plan: Continue to monitor daily. She is status post 2 units of transfused blood. On iron supplementation as well. B12 level is normal. Waiting for Vit D level. (7) Generalized muscle weakness Impression: After an episode of septic shock. Due to infection, immobility in bed. Has been progressing well. Has been seen by physical therapy.Able to walk 300 feet with a walker Recommend continued PT in hospital working toward goal of good LE strength and indeepndent ambualtion in hallway; pt. encouraged to do ex. between PT visits and mobilzed w/nursing as much as tolerated/possible. Expect pt. may be able to d/c home. May need walker at d/c, to be determined. Today's note: Patient demonstrates safe and independence ambulating > 300ft without AD, walking normal walking pace, tolerating moderate challenges. Patient does not demonstrated to be at increased falls risk. Safe and independence demonstrated to go up/down 3 steps with use of 1 hand rail. Patient remains to have limited activity tolerance, expressing feeling tiered after walking 300ft without increased breathing rate or signs of exertion. Patient no longer needs skilled PT intervention. (8) Hypertension Impression: transitioned from IV meds to po meds. she is NOT allergic to losartan. I have given lopressor po and while pulse has responded, BP still up 150's. resume home losartan. BP controlled. Qualifiers: Hypertension type: essential hypertension Qualified Code(s): I10 - Essential (primary) hypertension
--- NOTE | 2017-09-16 23:54 | PROVIDER PROGRESS NOTE ---
Subjective - General Admit Date: 09/03/17 Procedure Date: 09/05/17 Post Op Days: 11 Procedure Performed: Relook with ileal resection, colon resection, ileocolostomy , end colostomy - Review of Systems Wound/Incisions: positive: Dressing dry and intact General: positive: No symptoms HEENT: positive: No symptoms Pulmonary: positive: No symptoms Cardiovascular: positive: No symptoms Gastrointestinal: positive: No symptoms, Abdominal pain (Some "twinges" more right than left.) Genitourinary: positive: No symptoms Musculoskeletal: positive: No symptoms (Feeling stronger daily.) Psychiatric: positive: No symptoms Objective - Patient Data Vital Signs: Vital Signs x48h Temp Pulse Resp BP BP Pulse Ox 09/16/17 23:16 36.8 C 75 18 174/82 H 97 09/16/17 21:10 174/84 H 09/16/17 16:29 36.9 C 90 18 163/94 H 96 Weight: Weight 09/14/17 09/15/17 09/16/17 23:59 23:59 23:59 Weight (kg) 61 kg 59.5 kg Intake & Output: Intake and Output Totals x24h 09/14/17 09/15/17 09/16/17 23:59 23:59 23:59 Intake Total 1650 1220 1730 Output Total 365 400 Balance 2157 987 2977 - Lab Results Lab Results: 09/13/17 05:17 09/13/17 05:17 - Current Medications Current Medications: Current Medications Generic Name Dose Route Start Last Admin Trade Name Freq PRN Reason Stop Dose Admin Acetaminophen 650 mg 09/14/17 14:58 09/16/17 21:11 Tylenol PO 650 mg Q4HR PRN Administration Pain or Fever > 38C (100.4F) Cholecalciferol 2,000 unit 09/14/17 15:00 09/16/17 08:36 Vitamin D3 PO 2,000 unit DAILY AMNA Administration Ferrous Sulfate 325 mg 09/15/17 13:00 09/16/17 08:36 Feosol PO 325 mg DAILYWM AMNA Administration Lorazepam 0.5 mg 09/15/17 12:54 09/16/17 21:11 Ativan PO 0.5 mg Q6H PRN Administration Anxiety Losartan Potassium 50 mg 09/13/17 09:00 09/16/17 08:36 Cozaar PO 50 mg DAILY AMNA Administration Metoprolol Tartrate 100 mg 09/14/17 21:00 09/16/17 21:10 Lopressor PO 100 mg BID AMNA Administration Multivitamins/Minerals 1 tab 09/14/17 15:00 09/16/17 08:36 Theragran M PO 1 tab DAILYWM AMNA Administration Nystatin 1 applic 09/10/17 23:00 09/16/17 21:11 Mycostatin Cream TOP 1 applic TID AMNA Administration Ondansetron HCl 4 mg 09/03/17 20:35 09/10/17 00:02 Zofran Inj IVP 4 mg Q6HR PRN Administration Nausea / Vomiting Pantoprazole Sodium 40 mg 09/12/17 09:00 09/16/17 06:47 Protonix PO 40 mg QDAC AMNA Administration Prochlorperazine Edisylate 10 mg 09/03/17 20:35 09/08/17 22:11 Compazine Inj IVP 10 mg Q6HR PRN Administration Nausea / Vomiting Saccharomyces Boulardii 250 mg 09/12/17 09:00 09/16/17 16:24 Florastor PO 250 mg BIDWM AMNA Administration Sodium Chloride 10 ml 09/05/17 22:00 09/16/17 21:11 Normal Saline Flush 0.9% IVP 10 ml Q8HR AMNA Administration Sodium Chloride 10 ml 09/05/17 19:08 09/14/17 23:45 Normal Saline Flush 0.9% IVP 10 ml PRN PRN Administration NEEDED PER PROVIDER ORDERS - Physical Exam Abdomen: positive: Other (open abdominal wound clean. Ostomy stool in bag) Impression/Plan - Problem List Problem List: Now taking ensure, eating better. Being taught wound care/ostomy care Ambulating better. Encourage oral intake Iron for anemia Continue wound/ostomy teaching.
[2017-09-17] MEDS: ACETAMINOPHEN 325 MG TABLET PO PRN (06:02)
[2017-09-17] MEDS: SODIUM CHLORIDE FLUSH 0.9% 10 ML SYRINGE IVP SCH (06:02)
[2017-09-17] MEDS: PANTOPRAZOLE 40 MG TABLET PO SCH (06:02)
[2017-09-17] MEDS: NYSTATIN CREAM 15 GM TUBE TOP SCH (06:03)
[2017-09-17 07:55] VITALS: BP 166/89
[2017-09-17] MEDS: FERROUS SULFATE 325 MG TABLET PO SCH (08:16)
[2017-09-17] MEDS: CHOLECALCIFEROL 1,000 UNIT TABLET PO SCH (08:17)
[2017-09-17] MEDS: SACCHAROMYCES BOULARDII 250 MG CAPSULE PO SCH (08:17)
[2017-09-17] MEDS: MULTIVITAMIN W/MINERALS TABLET PO SCH (08:17)
[2017-09-17] MEDS: LOSARTAN 50 MG TABLET PO SCH (08:17)
[2017-09-17] MEDS: METOPROLOL TARTRATE 50 MG TABLET PO SCH (08:17)
== END 2017-09-17 13:25 | disposition home health service (06) | DRG 853 ==
LOC: EDUNIT# → ED 15:14 → OBS 20:36 → OBSVTOIN 21:47 → MS2 22:00 → ICU 09-04 12:55 → MS3 09-11 19:21
PROVIDERS: ADMIT Internal Medicine; ATTEND Specialist
PROC: 0DBB0ZZ Excision of Ileum, Open Approach (ICD-10-PCS; 2017-09-04)
PROC: 0DBK0ZZ Excision of Ascending Colon, Open Approach (ICD-10-PCS; 2017-09-04)
PROC: 5A1955Z Respiratory Ventilation, Greater than 96 Consecutive Hours (ICD-10-PCS; 2017-09-04)
PROC: 02HV33Z Insertion of Infusion Device into Superior Vena Cava, Percutaneous Approach (ICD-10-PCS; 2017-09-04)
PROC: 0DTN0ZZ Resection of Sigmoid Colon, Open Approach (ICD-10-PCS; principal; 2017-09-04 13:00)
PROC: 0DBB0ZZ Excision of Ileum, Open Approach (ICD-10-PCS; 2017-09-05)
PROC: 0DBK0ZZ Excision of Ascending Colon, Open Approach (ICD-10-PCS; 2017-09-05)
PROC: 0D1M0Z4 Bypass Descending Colon to Cutaneous, Open Approach (ICD-10-PCS; 2017-09-05)
PROC: 3E0436Z Introduction of Nutritional Substance into Central Vein, Percutaneous Approach (ICD-10-PCS; 2017-09-07)
PROC: 30243N1 Transfusion of Nonautologous Red Blood Cells into Central Vein, Percutaneous Approach (ICD-10-PCS; 2017-09-09)
DX: A41.9 Sepsis, unspecified organism (principal); R65.21 Severe sepsis with septic shock; K65.0 Generalized (acute) peritonitis; E43 Unspecified severe protein-calorie malnutrition; J69.0 Pneumonitis due to inhalation of food and vomit; K63.1 Perforation of intestine (nontraumatic); K55.021 Focal (segmental) acute infarction of small intestine; D62 Acute posthemorrhagic anemia; R09.02 Hypoxemia; D53.9 Nutritional anemia, unspecified; K66.0 Peritoneal adhesions (postprocedural) (postinfection); I10 Essential (primary) hypertension; E87.6 Hypokalemia; F41.9 Anxiety disorder, unspecified; K31.89 Other diseases of stomach and duodenum; R11.2 Nausea with vomiting, unspecified; Z66 Do not resuscitate; Z68.21 Body mass index [BMI] 21.0-21.9, adult; Z78.1 Physical restraint status; Z87.891 Personal history of nicotine dependence
CPT/HCPCS: 36415; 70450; 71010; 71275; 74176; 74177; 80053; 81001; 81003; 82270; 82306; 82607; 82803; 83036; 83605; 83690; 83735; 83880; 84100; 84132; 84134; 84478; 84484; 85025; 85610; 86850; 86900; 86901; 86920; 87040; 87070; 87086; 87150; 87205; 93005; 93306; 94002; 94003; 94770; 96365; 96366; 96367; 96375; 96376; 99284; 99285

== ENCOUNTER 2017-10-17 12:53 | Outpatient (CLI) | payer MEDICAID | END 2017-10-17 12:54 | disposition home or self-care (01) | LOC: DI 12:53 | PROVIDERS: ATTEND Nurse Practitioner Family | DX: R00.0 Tachycardia, unspecified (principal); I51.7 Cardiomegaly | CPT/HCPCS: 93306 ==

== ENCOUNTER 2018-01-16 13:42 | Outpatient (CLI) | payer MEDICAID ==
[2018-01-16 14:22] LABS: CALCIUM 9.4 mg/dL (8.5-10.3); CREATININE 0.6 mg/dL (0.4-1.0)
[2018-01-16 14:23] LABS: BASOPHILS % (AUTO) 0.9 %; HGB - HEMOGLOBIN 13.4 g/dL (12.0-16.0); MEAN CORPUSCULAR HEMOGLOBIN 27.3 pg (27.0-31.0); MEAN CORPUSCULAR HGB CONC 32.8 g/dL (32.0-36.0); MEAN CORPUSCULAR VOLUME 83.3 fL (81.0-99.0); MEAN PLATELET VOLUME 8.3 fL (7.9-10.8); MONOCYTES % (AUTO) 5.4 %; NEUTROPHILS % (AUTO) 45.7 %; PLT - PLATELET COUNT 255 10^3/uL (130-450); RED BLOOD COUNT 4.89 10^6/uL (4.20-5.40); RED CELL DISTRIBUTION WIDTH 16.6 % (12.0-15.0); WHITE BLOOD COUNT 9.6 x10^3/uL (4.8-10.8)
[2018-01-16 14:41] LABS: BAND NEUTROPHILS % (MANUAL) 0 %
[2018-01-16 14:42] LABS: ABNORMAL LYMPHS % (MANUAL) 3 %; DIFFERENTIAL COMMENT MANUAL DIFFERENTIAL; EOSINOPHILS # (MANUAL) 0.1 10^3/uL (0-0.7); LYMPHOCYTES # (MANUAL) 4.4 10^3/uL (1.5-3.5); LYMPHOCYTES % (MANUAL) 43 %; MONOCYTES # (MANUAL) 0.7 10^3/uL (0.0-1.0); NEUTROPHILS # (MANUAL) 4.4 10^3/uL (1.5-6.6); NEUTROPHILS % (MANUAL) 46 %; PLATELET ESTIMATE, MANUAL NORMAL (130-450,000) (NORMAL); PLATELET MORPHOLOGY NORMAL APPEARANCE (NORMAL); RBC MORPHOLOGY (MULTIPLE) 1+ ANISOCYTOSIS (NORMAL)
== END 2018-01-16 13:43 | disposition home or self-care (01) ==
LOC: LAB 13:42
PROVIDERS: ATTEND Registered Nurse
DX: Z01.812 Encounter for preprocedural laboratory examination (principal)
CPT/HCPCS: 36415; 80048; 85025

== ENCOUNTER 2018-01-22 07:30 | Inpatient (IN) | payer MEDICAID ==
[2018-02-05] MEDS ORDERED: LACTATED RINGERS 1,000 ML IV ONE ×2 (07:19→11:57)
[2018-02-05] MEDS ORDERED: cefOXitin 2 GM in SODIUM CHLORIDE 0.9% MINIBAG 100 ML IV ONE (08:00)
[2018-02-05] MEDS ORDERED: SCOPOLAMINE PATCH TOP ONE (08:08)
[2018-02-05] MEDS ORDERED: BUPIVACAINE 0.5% PF 30 ML VIAL ONE (08:53)
--- NOTE | 2018-02-05 09:25 | HISTORY & PHYSICAL EXAMINATION ---
PMH/PSH - Past Medical History Cardiovascular: positive: Hypertension, Murmur, Other Respiratory: positive: None Neuro: positive: None Endocrine/Autoimmune: positive: None GI: positive: Other : positive: None HEENT: positive: None Psych: positive: None Musculoskeletal: positive: None Derm: positive: None MRSA Hx?: No - Past Surgical History General: positive: Bowel surgery Social & Family Hx - Social History Does the pt smoke?: No Smoking Status: Never smoker Does the pt drink ETOH?: No ETOH Use: Wine Does the pt have substance abuse?: No - POLST Patient has POLST: No POLST Status: DNR Meds/Allgy - Home Medications Home Medications: Ambulatory Orders Medication Instructions Recorded Confirmed Cyclobenzaprine [Flexeril] 5 mg PO TID PRN 06/19/17 01/16/18 Losartan [Cozaar] 50 mg PO DAILY 06/19/17 02/05/18 Metoprolol Tartrate [Lopressor] 100 mg PO BID #60 tablet 09/17/17 02/05/18 Multivitamin W/Minerals [Theragran 1 tab PO DAILYWM tablet 09/17/17 01/16/18 M] - Allergies Allergies/Adverse Reactions: Allergies Allergy/AdvReac Type Severity Reaction Status Date / Time Penicillins Allergy Unknown Verified 01/16/18 13:43 Exam - Vital Signs Vital Signs: Vital Signs x48h Temp Pulse Resp BP Pulse Ox 02/05/18 07:34 36.5 C 70 18 181/133 H 98 Impression/Plan - Problem List Problem List: This is a very pleasant 62-year-old female who was evaluated in room [address] [facility]'s family day care worker unit as an update to history and physical in preparation for her colostomy takedown. The patient was seen on January 02 for the very same reason but since more than 30 days passed between the time of the patient was evaluated and the procedure and update is mandated. The patient continues to have some issues with swelling around her ostomy consistent with a pericolostomy hernia. Otherwise her ostomy is working well. The patient has gained weight and does not have any complaints of melena, hematochezia, hematemesis. She is looking forward to having her colostomy reversed. Again today we discussed the expectations of her after the operation which would be to ambulate as much as she can as well as work on her incentive spirometry.This is a very pleasant 62-year-old female who was evaluated in room [address] [facility]'s family day care worker unit as an update to history and physical in preparation for her colostomy takedown. The patient was seen on January 02 for the very same reason but since more than 30 days passed between the time of the patient was evaluated and the procedure and update is mandated. The patient continues to have some issues with swelling around her ostomy consistent with a pericolostomy hernia. Otherwise her ostomy is working well. The patient has gained weight and does not have any complaints of melena , hematochezia, hematemesis. She is looking forward to having her colostomy reversed. Again today we discussed the expectations of her after the operation which would be to ambulate as much as she can as well as work on her incentive spirometry. Current Allergies: PENICILLIN V POTASSIUM (Critical) Current Medications: FELODIPINE ER 2.5 MG ORAL TABLET EXTENDED RELEASE 24 HOUR (FELODIPINE) take one tablet by mouth daily NYSTATIN 337806 UNIT/GM EXTERNAL POWDER (NYSTATIN) Apply to affected skin two to three times a day until infection is resolved CYCLOBENZAPRINE HCL 5 MG ORAL TABLET (CYCLOBENZAPRINE HCL) Take 1 tablet daily as needed THERAGRAN-M PREMIER 50 PLUS ORAL TABLET (MULTIPLE VITAMINS-MINERALS) One tablet daily with meal ACETAMINOPHEN 500 MG ORAL TABLET (ACETAMINOPHEN) Take one tablet every 6 hours as needed; NOT TO EXCEED 3,500mg per day combined with oxycodone/acetaminophen NYSTATIN [id number] UNIT/GM EXTERNAL CREAM (NYSTATIN) Apply up to three times daily or as needed OXYCODONE-ACETAMINOPHEN 5-325 MG ORAL TABLET (OXYCODONE-ACETAMINOPHEN) Take one tablet every 4 hours as needed METOPROLOL TARTRATE 50 MG ORAL TABLET (METOPROLOL TARTRATE) Take two tablets by mouth twice daily; Call MD if BP <90/60 or pulse <60 LOSARTAN POTASSIUM 100 MG ORAL TABLET (LOSARTAN POTASSIUM) take one tablet by mouth daily Physical Exam General: 62 year old female evaluated in Room 0 [facility] Unit, appears just slightly older than her stated age, well developed, well nourished HEENT: Normocephalic, atraumatic, extraocular movement intact, mucous membranes pink and moist, sclera anicteric and not injected Neck: Supple without pain on palpation, mass or bruit Cardiac: Regular rate and rhythm without rub, gallop, or murmur Chest: Clear to auscultation bilaterally Abdomen: Soft, nontender, normoactive bowel sounds, no hepatomegaly, no splenomegaly pink patent and productive ostomy on her left side, well-healed incision Genitourinary: Deferred Rectal: Deferred Extremities: No gross neurovascular problem, no clubbing, cyanosis or edema Gait: No gross motor deficit Psychiatric: Alert and oriented to person place and time, asks and answers questions appropriately, mood and affect appropriate Allergies: PENICILLIN V POTASSIUM (Critical) Risk Factors: Smoked Tobacco Use: Former smoker Cigarettes: Yes Year quit: 2006 Years Since Last Quit: 12 Passive smoke exposure: no Drug use: no HIV high-risk behavior: no Caffeine use: 3 drinks per day Alcohol use: no Past Medical History: 2000: Migraines 1997: Hypertension perforated sigmoid colon 09/03/17 necrotic terminal ileum 09/03/17 peritonitis 09/03/17 Past Surgical History: Relook with ileal resections, colon resection, ileocolostomy and end colostomy 09/05/17 Family History Summary: Mother (biol.) - Has Family History of Hypertension - Entered On: 08/16/2016 Mother (biol.) - Has a mother - Entered On: 08/16/2016 Father (biol.) - Has a father - Entered On: 08/16/2016 Review of Systems CONSTITUTIONAL: No weight loss, fever, chills, weakness or fatigue. HEENT: Eyes: No visual loss, blurred vision, double vision or yellow sclerae. Ears, Nose, Throat: No hearing loss, sneezing, congestion, runny nose or sore throat. SKIN: No rash or itching. CARDIOVASCULAR: No chest pain, chest pressure or chest discomfort. No palpitations or edema. RESPIRATORY: No shortness of breath, cough or sputum. GASTROINTESTINAL: No anorexia, nausea, vomiting or diarrhea. No abdominal pain or blood. GENITOURINARY: No dysuria. Not . NEUROLOGICAL: No headache, dizziness, syncope, paralysis, ataxia, numbness or tingling in the extremities. No change in bowel or bladder control. MUSCULOSKELETAL: No muscle, back pain, joint pain or stiffness. HEMATOLOGIC: No anemia, bleeding or bruising. LYMPHATICS: No enlarged nodes. No history of splenectomy. PSYCHIATRIC: No history of depression or anxiety. ENDOCRINOLOGIC: No reports of sweating, cold or heat intolerance. No polyuria or polydipsia. ALLERGIES: No history of asthma, hives, eczema or rhinitis. Impression & Recommendations: Again, colostomy takedown, possible single incision laparoscopic versus open. The indications, procedure, alternatives including no operation, and risks including but not limited to infection, bleeding, and were fully explained to the patient in the office and I did not go into great detail again today. A very remote possibility of a colostomy was discussed with the patient. All questions were fully answered. Verbal and written consent was obtained. The patient, in preparation for surgery, has been nothing by mouth and receive an antibiotic soap and water shower, and receive 2 g of cefoxitin with induction. The patient will have their colon and rectum prepped mechanically and antibiotically. She could only tolerate one enema. The patient will have TEDs and venodynes placed for prophylaxis against deep venous thrombosis. Due to the possibility of an epidural catheter being placed, blood thinners will not be given to prophylax against deep venous thrombosis. Strict adherence to the ERAS protocol makes it likely that the patient will be discharged within 96 hours of the operation. I asked the patient to contact me with any surgical questions and/or concerns and they stated that they would. I asked the patient let me know if there is any way we can make their stay at [facility] more comfortable and again the patient stated that they would let me know.. 30 minutes of [id number] time was spent with the patient with over 80% spent in discussion and coordination of her care [place] disclaimer: This document was created in part using voice recognition technology. Because of the inherent limitations of the system ([employer] user manual states that the licensee understands that speech recognition is a statistical process and that recognition errors are inherent in the process), occasional same sounding word substitutions and grammatical errors do occur and persist despite proofreading. Please read this document for context.
[2018-02-05] MEDS ORDERED: OXYTOCIN 10 UNIT/ML VIAL IV ONE (10:00)
[2018-02-05] MEDS ORDERED: ONDANSETRON 4 MG/2 ML VIAL IVP ONE (10:00)
[2018-02-05] MEDS ORDERED: MIDAZOLAM 2 MG/2 ML VIAL IVP ONE (10:00)
[2018-02-05] MEDS ORDERED: DEXAMETHASONE 4 MG/ML VIAL IVP ONE (10:00)
[2018-02-05] MEDS ORDERED: ePHEDrine 50 MG/ML AMP IVP ONE (10:00)
[2018-02-05] MEDS ORDERED: fentaNYL 100 MCG/2 ML VIAL IVP ONE (10:00)
[2018-02-05] MEDS ORDERED: LABETALOL 5 MG/1 ML 20 ML MDV IV ONE (10:00)
[2018-02-05] MEDS ORDERED: ROCURONIUM 50 MG/5 ML VIAL IVP ONE (10:00)
[2018-02-05] MEDS ORDERED: LIDOCAINE-MPF 2% 5 ML VIAL IM ONE (10:00)
[2018-02-05] MEDS ORDERED: ROPIVACAINE 0.2% PF 10 ML AMPULE EPI ONE (10:00)
[2018-02-05] MEDS ORDERED: BUPIVACAINE 0.5% PF 30 ML VIAL INFIL ONE (10:07)
[2018-02-05] MEDS ORDERED: fentaNYL 250 MCG/5 ML VIAL ONE (11:27)
[2018-02-05] MEDS ORDERED: BUPIVACAINE 0.75% MPF 30 ML VIAL ONE (11:27)
--- NOTE | 2018-02-05 11:50 | OPERATIVE REPORT ---
Operative Report - General Admit Date: 02/05/18 Procedure Date: 02/05/18 Planned Procedure: SILS colostomy takedown Pre-Op Diagnosis: Colostomy Procedure Performed: SILS colostomy takedown Post Op Diagnosis: Same - Procedure Note Primary Surgeon: Wilbert Hernández MD Secondary Surgeon: Jn Vargas MD Anesthesia Provider: Mary Polk CRNA Anesthesia Technique: Epidural (Thoracic placed by Mary Polk), General ET tube IV Fluids (mL): 1,500 Estimated Blood Loss (mL): 20 Urine Output (mL): 200 Complications: None - Other Other Information/Narrative: OPERATIVE DESCRIPTION/REPORT: After verbal and written informed consent was obtained detailing the risks of infection, bleeding requiring transfusion with its risks, nerve injury, and , and after I met with the patient confirming the surgery and the site of the surgery, the patient was brought to the operative suite and placed supine on the operating table. Great care was taken to avoid pressure points to prevent pressure necrosis or nerve injury. Monitoring devices were applied along with TEDs and pneumatic compressive stockings (to prevent DVT). The patient received preoperative antibiotics for surgical prophylaxis. Mary Polk sedated and anesthetized the patient for the entire procedure. The patient was then placed in modified lithotomy position again taking great care to avoid pressure points to prevent pressure necrosis or nerve injury. The colostomy was sewn shut. The patient was prepped and draped in the usual sterile manner. A "time in" then confirmed that the patient was identified with 3 identifiers (name, date and medical record number), the history and physical was in the chart, the signed consent confirming the procedure was in the chart, the patient was in the correct position, the aforementioned prophylactic measures were in place or given, we had the correct personnel and equipment to complete the procedure and that anesthesia, surgery and nursing were given an opportunity to express any concerns. With the agreement of everyone in the room, we proceeded with the operation. A transverse elliptical incision was then created surrounding the colostomy. This was taken down to the colon and then subsequently the fascial opening using a combination of Metzenbaum scissors and Bovie electrocautery. Once this was completed the colostomy was inverted through the opening in the fascia and the remaining adhesions were taken. A moist lap sponge was place in the opening that had been the colostomy. A finger sweep of the anterior abdominal wall confirmed that there were no adhesions to the anterior abdominal wall and placement of the Gelport could be safely accomplished. The flexible ring was inserted into the abdomen again taking care not to trap any bowel between it and the abdominal wall and the other ring was rotated down securing the opening. After placing one 12 mm port and two 10 mm ports through the Gelport, the Gelport was then latched onto the ring and the pneumoperitoneum was then established using carbon dioxide insufflation to a steady state pressure of 12 mmHg. Laparoscopically the rectum was then mobilized and the two Prolene sutures that had been placed on the corners during the previous operation aided this. I was satisfied that there was enough length proximally and distally that the anastamosis could be made without tension. An automatic purse string quill cleaner was then placed across the distal colon and a 3-0 Prolene on a Tomer needle was used to form the purse string. The anvil of a 28 mm EEA stapler was obtained and after the colostomy was cut off, and the purse mulugeta removed, the anvil was placed into the open end of the colon and the 3-0 Prolene was tied tight around the post. Dr. Vargas then went below and after dilating the patients anus with water soluble lubricant and ultimately three fingers, inserted the EEA stapler through the patients anus. The tip of this was guided by my instruction to the stapled edge of the rectum. With great care and under direct vision, the post with the spike was brought out and this pierced the rectum near the stapled edge. The post of the anvil was inserted onto the spike and a "click" feel and sound confirmed placement. This was then screwed down and fired creating the colocolostomy. Filling the abdomen with warm saline and concomitantly injecting air into the patients rectum tested this. The anastamosis was found to be airtight. Dr. Vargas then changed his gown and gloves. The abdomen was copiously irrigated. The fascia at the colostomy site was closed using two looped running PDS sutures, closing first the posterior fascia and then the anterior fascia. The subcutaneous tissues were approximated using interrupted 3-0 Vicryl sutures. The skin was closed using skin ana m. A dressing was applied. At this point a time out was performed that confirmed that all the counts were correct, the procedure that was performed, the blood loss, the urine output, the IV fluids administered, and the patients condition. Having tolerated the procedure well, the patient was subsequently extubated and taken to recovery room in good and stable condition.
[2018-02-05] MEDS ORDERED: BENZOCAINE/TETRACAINE/BUTAMBEN 20 GM MM PRN (12:08)
[2018-02-05] MEDS ORDERED: ONDANSETRON 4 MG/2 ML VIAL IVP PRN (12:56)
[2018-02-05] MEDS ORDERED: NALBUPHINE 20 MG/ML AMP IVP PRN (12:56)
[2018-02-05] MEDS: LACTATED RINGERS 1,000 ML IV SCH ×2 (13:36→18:13)
[2018-02-05] MEDS: ACETAMINOPHEN 1,000 MG/100 ML 100 ML IV SCH ×2 (13:53→18:52)
[2018-02-05] MEDS: SODIUM CHLORIDE FLUSH 0.9% 10 ML SYRINGE IVP SCH (18:13)
[2018-02-06] MEDS: SODIUM CHLORIDE FLUSH 0.9% 10 ML SYRINGE IVP SCH ×3 (01:20→14:59)
[2018-02-06] MEDS: ACETAMINOPHEN 1,000 MG/100 ML 100 ML IV SCH ×3 (05:36→18:19)
[2018-02-06 06:30] LABS: BASOPHILS % (AUTO) 0.4 %; EOSINOPHILS % (AUTO) 0.1 %; HGB - HEMOGLOBIN 11.2 g/dL (12.0-16.0); LYMPHOCYTES # (AUTO) 3.8 10^3/uL (1.5-3.5); LYMPHOCYTES % (AUTO) 30.7 %; MEAN CORPUSCULAR HEMOGLOBIN 27.4 pg (27.0-31.0); MEAN CORPUSCULAR HGB CONC 32.2 g/dL (32.0-36.0); MEAN CORPUSCULAR VOLUME 85.2 fL (81.0-99.0); MEAN PLATELET VOLUME 8.8 fL (7.9-10.8); MONOCYTES # (AUTO) 0.8 10^3/uL (0.0-1.0); MONOCYTES % (AUTO) 6.8 %; NEUTROPHILS # (AUTO) 7.6 10^3/uL (1.5-6.6); PLT - PLATELET COUNT 204 10^3/uL (130-450); RED BLOOD COUNT 4.08 10^6/uL (4.20-5.40); RED CELL DISTRIBUTION WIDTH 17.9 % (12.0-15.0); WHITE BLOOD COUNT 12.2 x10^3/uL (4.8-10.8)
[2018-02-06 06:40] LABS: ALBUMIN 3.3 g/dL (3.2-5.5); ALBUMIN/GLOBULIN RATIO 1.3 (1.0-2.2); CALCIUM 8.2 mg/dL (8.5-10.3); CREATININE 0.7 mg/dL (0.4-1.0); TOTAL PROTEIN 5.9 g/dL (6.7-8.2)
--- NOTE | 2018-02-06 08:49 | PROVIDER PROGRESS NOTE ---
Subjective - General Admit Date: 02/05/18 Procedure Date: 02/05/18 Post Op Days: 1 Procedure Performed: SILS colostomy takedown - Review of Systems Wound/Incisions: positive: Dressing dry and intact General: positive: No symptoms HEENT: positive: No symptoms Pulmonary: positive: No symptoms Cardiovascular: positive: No symptoms Gastrointestinal: positive: No symptoms. negative: Flatus Genitourinary: positive: No symptoms Musculoskeletal: positive: Shoulder pain (Right.) Skin: positive: No symptoms Psychiatric: positive: No symptoms Objective - Patient Data Reviewed Vital Signs: Yes Vital Signs: Vital Signs x48h Temp Pulse Resp BP Pulse Ox 02/06/18 07:31 36.9 C 78 20 145/50 H 98 02/06/18 04:48 37.0 C 84 16 159/92 H 97 Weight: Weight 02/04/18 02/05/18 02/06/18 23:59 23:59 23:59 Weight (kg) 54.8 kg Intake & Output: Intake and Output Totals x24h 02/04/18 02/05/18 02/06/18 23:59 23:59 23:59 Intake Total 1555 100 Output Total 450 200 Balance 1105 -100 - Lab Results Lab Results: 02/06/18 05:55 02/06/18 05:55 Other Lab Results: Lab Results x24hrs 02/06/18 02/06/18 Range/Units 05:55 05:55 WBC 12.2 H (4.8-10.8) x10^3/uL RBC 4.08 L (4.20-5.40) 10^6/uL Hgb 11.2 L (12.0-16.0) g/dL Hct 34.8 L (37.0-47.0) % MCV 85.2 (81.0-99.0) fL MCH 27.4 (27.0-31.0) pg MCHC 32.2 (32.0-36.0) g/dL RDW 17.9 H (12.0-15.0) % Plt Count 204 (130-450) 10^3/uL MPV 8.8 (7.9-10.8) fL Neut # 7.6 H (1.5-6.6) 10^3/uL Lymph # 3.8 H (1.5-3.5) 10^3/uL Person # 0.8 (0.0-1.0) 10^3/uL Eos # 0.0 (0.0-0.7) 10^3/uL Baso # 0.0 (0.0-0.1) 10^3/uL Absolute Nucleated RBC 0.01 x10^3/uL Nucleated RBC % 0.0 /100WBC Sodium 134 L (135-145) mmol/L Potassium 4.0 (3.5-5.0) mmol/L Chloride 102 (101-111) mmol/L Carbon Dioxide 25 (21-32) mmol/L Anion Gap 7.0 (6-13) BUN 12 (6-20) mg/dL Creatinine 0.7 (0.4-1.0) mg/dL Estimated GFR (MDRD) 84 L (>89) Glucose 112 H (70-100) mg/dL Calcium 8.2 L (8.5-10.3) mg/dL Total Bilirubin 1.0 (0.2-1.0) mg/dL AST 23 (10-42) IU/L ALT 18 (10-60) IU/L Alkaline Phosphatase 51 (42-121) IU/L Total Protein 5.9 L (6.7-8.2) g/dL Albumin 3.3 (3.2-5.5) g/dL Globulin 2.6 (2.1-4.2) g/dL Albumin/Globulin Ratio 1.3 (1.0-2.2) - Current Medications Current Medications: Current Medications Generic Name Dose Route Start Last Admin Trade Name Freq PRN Reason Stop Dose Admin Lactated Ringer's 1,000 mls @ 50 mls/hr 02/05/18 13:00 02/05/18 19:10 Lr IV 50 mls/hr .Q20H AMNA Infusion Acetaminophen 100 mls @ 400 mls/hr 02/06/18 06:00 02/06/18 06:20 Ofirmev IV Infused Q6H AMNA Infusion Sodium Chloride 10 ml 02/05/18 17:00 02/06/18 01:20 Normal Saline Flush 0.9% IVP Not Given 0100,0900,1700 [facility] - Physical Exam Wound/Incisions: positive: Dressing dry and intact General Appearance: positive: No acute distress Eyes Bilateral: positive: No lid inflammation, Conjunctivae nml, No scleral icterus ENT: positive: No signs of dehydration Neck: positive: Trachea midline Respiratory: positive: Chest non-tender, No respiratory distress, Breath sounds nml Cardiovascular: positive: Regular rate & rhythm Abdomen: positive: Non-tender, Nml bowel sounds, Other (No farts or bowel movement yet.) Skin: positive: Color nml Extremities: positive: Non-tender, Nml appearance Neurologic/Psychiatric: positive: Oriented x3 ABX Reporting Has patient been on IV antibiotics over the past 48 hours?: Yes Impression/Plan - Problem List Problem List: D1 s/p SILS colostomy takedown. Patient is on ERAS protocol and following it well. Good pain relief with epidural. No evidence of infection. Continue ERAS protocol. I continue to expect discharge home within 96 hours of operation.
--- NOTE | 2018-02-06 09:27 | ANESTHESIA POST OP EVALUATION ---
Anesthesia Post Eval - Post Anesthesia Eval CV Function Including HR & BP: positive: Stable Pain Control: positive: Adequate Nausea & Vomiting: positive: Negative Mental Status: positive: Appropriate Anesthesia Complications: positive: None - Other Details/Therapies Other Details/Therapies: Epidural at T-7 infusing at 8ml hour with 3ml PCEA q10 min controlling pain adequately. Ambulatory and voiding qs, no apparent motor block. Only complaint is right shoulder pain most likely due to pneumoperitoneum. Epidural site intact , catheter at 12 cm, no reddness or drainage. Plan per Dr. Hernández is to most likely D/C epidural tomorrow.
[2018-02-06] MEDS: fent/BUPIV 2 MCG/0.125% 250 ML EP PRN (12:56)
[2018-02-06] MEDS: ONDANSETRON 4 MG/2 ML VIAL IVP PRN (14:58)
[2018-02-06] MEDS: SODIUM CHLORIDE FLUSH 0.9% 10 ML SYRINGE IVP PRN (17:05)
[2018-02-06] MEDS: LACTATED RINGERS 1,000 ML IV SCH (17:08)
[2018-02-06] MEDS ORDERED: CYCLOBENZAPRINE 10 MG TABLET PO PRN (17:52)
[2018-02-06] MEDS: METOPROLOL TARTRATE 50 MG TABLET PO SCH ×2 (18:17→20:30)
[2018-02-06] MEDS: LOSARTAN 50 MG TABLET PO SCH (18:18)
[2018-02-07] MEDS: ACETAMINOPHEN 1,000 MG/100 ML 100 ML IV SCH ×4 (00:06→18:33)
[2018-02-07] MEDS: ONDANSETRON 4 MG/2 ML VIAL IVP PRN ×2 (06:40→11:05)
[2018-02-07] MEDS: SODIUM CHLORIDE FLUSH 0.9% 10 ML SYRINGE IVP SCH ×3 (07:39→16:11)
[2018-02-07] MEDS: METOPROLOL TARTRATE 50 MG TABLET PO SCH ×2 (08:16→20:27)
[2018-02-07] MEDS: LOSARTAN 50 MG TABLET PO SCH (08:18)
--- NOTE | 2018-02-07 09:12 | PROVIDER PROGRESS NOTE ---
Subjective - General Admit Date: 02/05/18 Procedure Date: 02/05/18 Post Op Days: 2 Procedure Performed: SILS colostomy takedown - Review of Systems Wound/Incisions: positive: Dressing dry and intact General: positive: No symptoms, Other (A bout of nausea this morning kept her from eating her breakfast.) HEENT: positive: No symptoms Pulmonary: positive: No symptoms Cardiovascular: positive: No symptoms Gastrointestinal: positive: No symptoms. negative: Flatus Genitourinary: positive: No symptoms Musculoskeletal: positive: Shoulder pain (Right and better.) Skin: positive: No symptoms Psychiatric: positive: No symptoms Objective - Patient Data Reviewed Vital Signs: Yes Vital Signs: Vital Signs x48h Temp Pulse Resp BP BP Pulse Ox 02/07/18 08:53 37.1 C 79 18 149/95 H 96 02/07/18 08:16 143/89 H 02/07/18 05:07 37.5 C 79 18 136/88 H 95 Weight: Weight 02/05/18 02/06/18 02/07/18 23:59 23:59 23:59 Weight (kg) 54.8 kg Intake & Output: Intake and Output Totals x24h 02/05/18 02/06/18 02/07/18 23:59 23:59 23:59 Intake Total 1555 3105 743.333 Output Total 450 700 Balance 1105 2405 743.333 - Lab Results Lab Results: 02/06/18 05:55 02/06/18 05:55 - Current Medications Current Medications: Current Medications Generic Name Dose Route Start Last Admin Trade Name Freq PRN Reason Stop Dose Admin Lactated Ringer's 1,000 mls @ 50 mls/hr 02/05/18 13:00 02/07/18 00:30 Lr IV 50 mls/hr .Q20H AMNA Infusion Fentanyl/Bupivacaine/Sodium Chlor 250 mls @ 0 mls/hr 02/05/18 12:56 02/06/18 12:56 Fent/Bupiv 2 Mcg/0.125% EP 8 mls/hr .Q0M PRN Administration PAIN Protocol Per Protocol Acetaminophen 100 mls @ 400 mls/hr 02/06/18 06:00 02/07/18 06:55 Ofirmev IV Infused Q6H AMNA Infusion Losartan Potassium 100 mg 02/06/18 18:00 02/07/18 08:18 Cozaar PO 100 mg DAILY AMNA Administration Metoprolol Tartrate 100 mg 02/06/18 18:00 02/07/18 08:16 Lopressor PO 100 mg BID AMNA Administration Ondansetron HCl 4 mg 02/05/18 12:08 02/07/18 06:40 Zofran Inj IVP 4 mg Q6H PRN Administration Nausea / Vomiting Sodium Chloride 10 ml 02/05/18 17:00 02/07/18 08:18 Normal Saline Flush 0.9% IVP Not Given 0100,0900,1700 AMNA Sodium Chloride 10 ml 02/05/18 12:08 02/06/18 17:05 Normal Saline Flush 0.9% IVP 10 ml PRN PRN Administration NEEDED PER PROVIDER ORDERS - Physical Exam Wound/Incisions: positive: Dressing dry and intact General Appearance: positive: No acute distress, Other (Sleepy. Was still woken up every 4 hours.) Eyes Bilateral: positive: No lid inflammation, Conjunctivae nml, No scleral icterus ENT: positive: Dry mucous membranes Neck: positive: Trachea midline Respiratory: positive: Chest non-tender, No respiratory distress, Breath sounds nml Cardiovascular: positive: Regular rate & rhythm Abdomen: positive: Abnml bowel sounds (Slightly decreased.), Other (Slightly distended.) Skin: positive: Color nml Extremities: positive: Nml appearance Neurologic/Psychiatric: positive: Oriented x3 ABX Reporting Has patient been on IV antibiotics over the past 48 hours?: No Impression/Plan - Problem List Problem List: D2 s/p SILS colostomy takedown Continue ERAS protocol. Trying to have the patient get more meaningful sleep but being wakened every 4 hours likely due to epidural. Will continue general but not camejo patient to eat. Continue ERAS protocol. Still I believe it is reasonable to expect that the patient will be discharghed within 96 hours of operation. No evidence of infection. Remove epidural tomorrow please.
[2018-02-07] MEDS: SODIUM CHLORIDE FLUSH 0.9% 10 ML SYRINGE IVP PRN ×3 (11:05→22:12)
[2018-02-07] MEDS: fent/BUPIV 2 MCG/0.125% 250 ML EP PRN (13:17)
--- NOTE | 2018-02-07 13:48 | ANESTHESIA POST OP EVALUATION ---
Anesthesia Post Eval - Post Anesthesia Eval Pain Control: positive: Adequate Nausea & Vomiting: positive: Negative Mental Status: positive: Appropriate Anesthesia Complications: positive: None (Patient seen POD #2, epidural in place , site clear, dressing was reinforced by nurses looks good. Patient had first BM today, passing nausea with that. Good pain control, plan to D/C epidural tomorrow. No motor block, ambulating without difficulties.)
[2018-02-07] MEDS: PROCHLORPERAZINE 10 MG/2 ML VIAL IVP PRN (14:07)
[2018-02-07] MEDS: LACTATED RINGERS 1,000 ML IV SCH (14:31)
[2018-02-07] MEDS ORDERED: SODIUM CHLORIDE 0.9% 500 ML IV SCH (21:28)
--- NOTE | 2018-02-07 21:37 | MISCELLANEOUS PROVIDER NOTE ---
Miscellaneous Provider Note - - Note: Called about patient getting up to go to bathroom where she had a bowel movement but feeling lightheaded afterwards. Relative hypotension (patient is normally hypertensive) with a relatively normal heart rate but hypoxia. Patient given supplemental oxygen and I ordered basic labs. 500 mL NS bolus written. Could be related to epidural but less likely. Will check for PE as the patient did have surgery and was in modified lithotomy position. Radha and simona were on patient. Will follow her progress.
[2018-02-07] MEDS ORDERED: SODIUM CHLORIDE 0.9% 500 ML IV ONE (21:43)
[2018-02-07 21:52] LABS: BASOPHILS # (AUTO) 0.1 10^3/uL (0.0-0.1); BASOPHILS % (AUTO) 0.8 %; EOSINOPHILS # (AUTO) 0.1 10^3/uL (0.0-0.7); EOSINOPHILS % (AUTO) 1.1 %; HGB - HEMOGLOBIN 13.1 g/dL (12.0-16.0); LYMPHOCYTES # (AUTO) 3.6 10^3/uL (1.5-3.5); LYMPHOCYTES % (AUTO) 27.5 %; MEAN CORPUSCULAR HEMOGLOBIN 28.1 pg (27.0-31.0); MEAN CORPUSCULAR HGB CONC 32.6 g/dL (32.0-36.0); MEAN CORPUSCULAR VOLUME 86.3 fL (81.0-99.0); MEAN PLATELET VOLUME 8.8 fL (7.9-10.8); MONOCYTES % (AUTO) 7.9 %; NEUTROPHILS # (AUTO) 8.2 10^3/uL (1.5-6.6); NEUTROPHILS % (AUTO) 62.7 %; PLT - PLATELET COUNT 231 10^3/uL (130-450); RED BLOOD COUNT 4.67 10^6/uL (4.20-5.40); RED CELL DISTRIBUTION WIDTH 18.2 % (12.0-15.0)
[2018-02-07 22:03] LABS: ALBUMIN 3.2 g/dL (3.2-5.5); ALBUMIN/GLOBULIN RATIO 1.1 (1.0-2.2); BILIRUBIN,TOTAL 0.9 mg/dL (0.2-1.0); CALCIUM 8.7 mg/dL (8.5-10.3); CREATININE 0.9 mg/dL (0.4-1.0); TOTAL PROTEIN 6.1 g/dL (6.7-8.2)
[2018-02-07] MEDS ORDERED: IOPAMIDOL-300 100 ML VIAL ONE (22:24)
[2018-02-07] MEDS ORDERED: IOPAMIDOL-300 100 ML VIAL IVP ONE (22:37)
--- NOTE | 2018-02-07 22:58 | CT Report ---
EXAM: CT ANGIOGRAM CHEST EXAM DATE: 02/07/2018 10:44 PM. CLINICAL HISTORY: Hypoxia despite supplemental O2. Postop day 2. COMPARISON: 09/08/2017. TECHNIQUE: Routine helical imaging was performed through the chest in the pulmonary arterial phase. I V Contrast: 80ML ISOVUE 300. Reconstructions: Coronal 3-D MIP reconstructions.Sagittal and coronal. In accordance with CT protocol optimization, one or more of the following dose reduction techniques w ere utilized for this exam: automated exposure control, adjustment of mA and/or KV based on patient s ize, or use of iterative reconstructive technique. FINDINGS: Pulmonary Arteries: Diagnostic quality: Adequate through the segmental arteries. No evidence for acute or chronic pulmona ry emboli. No evidence of right heart strain. Lungs/Pleura: Small bilateral pleural effusions, right greater than left. Bibasilar atelectasis. No p neumothorax. Mediastinum: Mild cardiomegaly. Small hiatal hernia. Normal sized mediastinal lymph nodes. Thoracic Aorta: Ascending aorta measures 4.1 cm. Mild atherosclerosis. No aortic dissection. Upper Abdomen: Mild ascites. Dilated fluid-filled small bowel loops. Other: None. IMPRESSION: 1. No pulmonary emboli seen. 2. Mild cardiomegaly with small bilateral pleural effusions and bibasilar atelectasis. 3. Mild ascites. 4. Dilated fluid-filled small bowel loops. This could represent postoperative ileus. Obstruction also in the differential diagnosis. [facility] Referring Provider Line: [phone] SITE ID: [id number]
--- NOTE | 2018-02-07 22:58 | CT Preliminary Report ---
Exam: CT CHEST ANGIO (PE) IMPRESSION: 1. No pulmonary emboli seen. 2. Mild cardiomegaly with small bilateral pleural effusions and bibasilar atelectasis. 3. Mild ascites. 4. Dilated fluid-filled small bowel loops. This could represent postoperative ileus. Obstruction also in the differential diagnosis. [facility] SITE ID: [id number]
[2018-02-08] MEDS: ACETAMINOPHEN 1,000 MG/100 ML 100 ML IV SCH ×2 (00:20→08:28)
[2018-02-08] MEDS: SODIUM CHLORIDE FLUSH 0.9% 10 ML SYRINGE IVP SCH ×3 (08:12→16:56)
--- NOTE | 2018-02-08 09:43 | PROVIDER PROGRESS NOTE ---
Subjective - General Admit Date: 02/05/18 Procedure Date: 02/05/18 Post Op Days: 3 Procedure Performed: SILS colostomy takedown - Review of Systems Wound/Incisions: positive: Healing well General: positive: No symptoms (Sitting in chair feeling much better.), Other ( A bout of nausea this morning kept her from eating her breakfast.) HEENT: positive: No symptoms Pulmonary: positive: No symptoms Cardiovascular: positive: No symptoms Gastrointestinal: positive: No symptoms. negative: Flatus Genitourinary: positive: No symptoms Skin: positive: No symptoms Psychiatric: positive: No symptoms Objective - Patient Data Reviewed Vital Signs: Yes Vital Signs: Vital Signs x48h Temp Pulse Resp BP Pulse Ox 02/08/18 08:26 37.0 C 90 18 147/78 H 95 02/08/18 05:00 36.9 C 86 20 126/81 H 95 Intake & Output: Intake and Output Totals x24h 02/06/18 02/07/18 02/08/18 23:59 23:59 23:59 Intake Total 3105 3343.333 178.333 Output Total 700 1 Balance 2405 3343.333 177.333 - Lab Results Lab Results: 02/07/18 21:38 02/07/18 21:38 Other Lab Results: Lab Results x24hrs 02/07/18 02/07/18 Range/Units 21:38 21:38 WBC 13.0 H (4.8-10.8) x10^3/uL RBC 4.67 (4.20-5.40) 10^6/uL Hgb 13.1 (12.0-16.0) g/dL Hct 40.3 (37.0-47.0) % MCV 86.3 (81.0-99.0) fL MCH 28.1 (27.0-31.0) pg MCHC 32.6 (32.0-36.0) g/dL RDW 18.2 H (12.0-15.0) % Plt Count 231 (130-450) 10^3/uL MPV 8.8 (7.9-10.8) fL Neut # 8.2 H (1.5-6.6) 10^3/uL Lymph # 3.6 H (1.5-3.5) 10^3/uL Mills # 1.0 (0.0-1.0) 10^3/uL Eos # 0.1 (0.0-0.7) 10^3/uL Baso # 0.1 (0.0-0.1) 10^3/uL Absolute Nucleated RBC 0.00 x10^3/uL Nucleated RBC % 0.0 /100WBC Sodium 133 L (135-145) mmol/L Potassium 3.8 (3.5-5.0) mmol/L Chloride 96 L (101-111) mmol/L Carbon Dioxide 27 (21-32) mmol/L Anion Gap 10.0 (6-13) BUN 10 (6-20) mg/dL Creatinine 0.9 (0.4-1.0) mg/dL Estimated GFR (MDRD) 63 L (>89) Glucose 132 H (70-100) mg/dL Calcium 8.7 (8.5-10.3) mg/dL Total Bilirubin 0.9 (0.2-1.0) mg/dL AST 20 (10-42) IU/L ALT 14 (10-60) IU/L Alkaline Phosphatase 50 (42-121) IU/L Total Protein 6.1 L (6.7-8.2) g/dL Albumin 3.2 (3.2-5.5) g/dL Globulin 2.9 (2.1-4.2) g/dL Albumin/Globulin Ratio 1.1 (1.0-2.2) - Imaging Results Radiology Imaging: positive: Prelim report reviewed, Final report received - Current Medications Current Medications: Current Medications Generic Name Dose Route Start Last Admin Trade Name Averyq PRN Reason Stop Dose Admin Lactated Ringer's 1,000 mls @ 50 mls/hr 02/05/18 13:00 02/08/18 00:50 Lr IV 50 mls/hr .Q20H AMNA Infusion Fentanyl/Bupivacaine/Sodium Chlor 250 mls @ 0 mls/hr 02/05/18 12:56 02/07/18 13:17 Fent/Bupiv 2 Mcg/0.125% EP 8 mls/hr .Q0M PRN Administration PAIN Protocol Per Protocol Acetaminophen 100 mls @ 400 mls/hr 02/06/18 06:00 02/08/18 08:28 Ofirmev IV 400 mls/hr Q6H AMNA Administration Ondansetron HCl 4 mg 02/05/18 12:08 02/07/18 11:05 Zofran Inj IVP 4 mg Q6H PRN Administration Nausea / Vomiting Prochlorperazine Edisylate 10 mg 02/07/18 13:18 02/07/18 14:07 Compazine Inj IVP 10 mg Q4HR PRN Administration Nausea / Vomiting Sodium Chloride 10 ml 02/05/18 17:00 02/08/18 08:32 Normal Saline Flush 0.9% IVP Not Given 0100,0900,1700 AMNA Sodium Chloride 10 ml 02/05/18 12:08 02/07/18 22:12 Normal Saline Flush 0.9% IVP 10 ml PRN PRN Administration NEEDED PER PROVIDER ORDERS - Physical Exam Wound/Incisions: positive: Healing well General Appearance: positive: No acute distress Eyes Bilateral: positive: No lid inflammation, Conjunctivae nml, No scleral icterus ENT: positive: Dry mucous membranes Neck: positive: Trachea midline Respiratory: positive: Breath sounds nml Cardiovascular: positive: Regular rate & rhythm Abdomen: positive: Nml bowel sounds Skin: positive: Color nml Extremities: positive: Non-tender, Nml appearance Neurologic/Psychiatric: positive: Oriented x3 ABX Reporting Has patient been on IV antibiotics over the past 48 hours?: No Impression/Plan - Problem List Problem List: D3 s/p SILS colostomy takedown. Patient has had 2 bowel movements. With the bowel movements and the enema patient seemed to vasovagal but will watch today - do not expect this will be persistent. CT angio did not show PE. I encouraged her to do her incentive spirometry. Start general diet again. Remove epidural. Start oral pain meds. Will separate the opiate from the acetaminophen. Take out every other staple. If patient continues to improve expect discharge tomorrow AM.
[2018-02-08] MEDS ORDERED: ACETAMINOPHEN 500 MG TABLET PO PRN (10:11)
[2018-02-08] MEDS: LOSARTAN 50 MG TABLET PO SCH (11:43)
[2018-02-08] MEDS: METOPROLOL TARTRATE 50 MG TABLET PO SCH ×2 (11:44→20:20)
--- NOTE | 2018-02-08 13:36 | ANESTHESIA POST OP EVALUATION ---
Anesthesia Post Eval - Post Anesthesia Eval CV Function Including HR & BP: positive: Stable Pain Control: positive: Adequate Nausea & Vomiting: positive: Negative Mental Status: positive: Appropriate Anesthesia Complications: positive: None (Pt up ambulating in room after ambulating hallways. No discomfort. T7 Epidural discontinued with tip intact on POD #3. Pt denies pain. Site is without redness/swelling or any s/sx of infection. Pt states mid thoracic area is still "a little numb to the touch". Patient sitting for removal and tolerated procedure without difficulties.)
[2018-02-08] MEDS: oxyCODONE 5 MG TABLET PO PRN ×2 (13:37→18:03)
[2018-02-08] MEDS: PROCHLORPERAZINE 10 MG/2 ML VIAL IVP PRN ×2 (16:04→22:45)
[2018-02-08] MEDS ORDERED: SODIUM CHLORIDE FLUSH 0.9% 10 ML SYRINGE ONE (16:11)
[2018-02-08] MEDS ORDERED: HYDROmorphone 0.5 MG/0.5 ML SYRINGE IVP PRN (16:30)
[2018-02-08] MEDS ORDERED: HYDROmorphone 0.5 MG/0.5 ML SYRINGE ONE (16:59)
[2018-02-08] MEDS: ONDANSETRON 4 MG/2 ML VIAL IVP PRN (17:05)
[2018-02-08] MEDS ORDERED: HYDROmorphone 0.5 MG/0.5 ML SYRINGE IVP ONE (19:02)
[2018-02-08] MEDS: LACTATED RINGERS 1,000 ML IV SCH (19:21)
[2018-02-08] MEDS ORDERED: HYDROmorphone 2 MG/ML VIAL ONE (19:24)
[2018-02-08] MEDS ORDERED: HYDROmorphone 0.5 MG/0.5 ML SYRINGE IVP SCH (20:06)
[2018-02-08] MEDS ORDERED: oxyCODONE 5 MG TABLET PO PRN (21:41)
[2018-02-08] MEDS ORDERED: HYDROmorphone 2 MG/ML VIAL IVP PRN (21:45)
[2018-02-08] MEDS: ENALAPRILAT 1.25 MG/ML VIAL IVP SCH (22:22)
[2018-02-09] MEDS: SODIUM CHLORIDE FLUSH 0.9% 10 ML SYRINGE IVP SCH ×3 (00:07→16:36)
[2018-02-09] MEDS: HYDROmorphone 2 MG/ML VIAL IVP PRN ×2 (00:11→05:54)
[2018-02-09] MEDS: SODIUM CHLORIDE FLUSH 0.9% 10 ML SYRINGE IVP PRN ×4 (00:20→20:38)
[2018-02-09] MEDS: ONDANSETRON 4 MG/2 ML VIAL IVP PRN ×2 (00:20→05:39)
[2018-02-09] MEDS: ENALAPRILAT 1.25 MG/ML VIAL IVP SCH ×3 (01:15→12:31)
[2018-02-09] MEDS: PROCHLORPERAZINE 10 MG/2 ML VIAL IVP PRN (02:36)
[2018-02-09] MEDS: LOSARTAN 50 MG TABLET PO SCH (08:32)
[2018-02-09] MEDS: METOPROLOL TARTRATE 50 MG TABLET PO SCH (08:33)
[2018-02-09 08:59] LABS: BASOPHILS # (AUTO) 0.1 10^3/uL (0.0-0.1); BASOPHILS % (AUTO) 0.4 %; EOSINOPHILS % (AUTO) 0.3 %; HGB - HEMOGLOBIN 15.1 g/dL (12.0-16.0); LYMPHOCYTES # (AUTO) 3.3 10^3/uL (1.5-3.5); LYMPHOCYTES % (AUTO) 20.2 %; MEAN CORPUSCULAR HEMOGLOBIN 27.7 pg (27.0-31.0); MEAN CORPUSCULAR HGB CONC 32.4 g/dL (32.0-36.0); MEAN CORPUSCULAR VOLUME 85.5 fL (81.0-99.0); MEAN PLATELET VOLUME 8.8 fL (7.9-10.8); MONOCYTES # (AUTO) 1.1 10^3/uL (0.0-1.0); MONOCYTES % (AUTO) 6.8 %; NEUTROPHILS # (AUTO) 11.7 10^3/uL (1.5-6.6); NEUTROPHILS % (AUTO) 72.3 %; PLT - PLATELET COUNT 254 10^3/uL (130-450); RED BLOOD COUNT 5.46 10^6/uL (4.20-5.40); RED CELL DISTRIBUTION WIDTH 17.5 % (12.0-15.0); WHITE BLOOD COUNT 16.2 x10^3/uL (4.8-10.8)
[2018-02-09] MEDS ORDERED: LACTATED RINGERS 1,000 ML IV SCH (09:41)
--- NOTE | 2018-02-09 10:17 | CONSULTATION NOTE ---
Referring Provider Name of Referring Provider:: Dr. Shine Vargas Consult Date: 02/09/18 Chief Complaint - Chief Complaint Chief Complaint: ongoing nausea, but consulted for HTN, elevated HR History of Present Illness - Admitted From Admitted From:: Planned OR for colos. take-down - History Obtained From Records Reviewed: yes History obtained from: patient, chart review Exam Limitations: none - History of Present Illness HPI Comment/Other: Claribel Barboza is a 62-year old female with a past medical history of urinary retention, low back pain, dysuria, decreased LV function, vitamin D deficiency, HTN, sepsis, perforated sigmoid colon, status post emergancy bowel exploratory surgery, status post colostomy device, and adhesive capsulitis of the right shoulder. The patient was relatively healthy woman up until this past August 2017 when she presented to our ED with abdominal pain that led to sepsis. For this hospital stay she had a planned take down surgery that was uncomplicated, until post op day #4 when she began to have uncontrolled blood pressure, tachycardia and a slight elevation in WBCs. The hospitalist will now be on consult. History - Past Medical History Cardiovascular: reports: Hypertension, High cholesterol, Murmur Respiratory: reports: Other (Tobacco abuse) Neuro: reports: None Endocrine/Autoimmune: reports: None GI: reports: Chronic constipation, Other (bowel perf-status post colostomy,take down) [employer]: reports: None : reports: None HEENT: reports: None Psych: reports: None Musculoskeletal: reports: None Derm: reports: None MRSA Hx?: No - Past Surgical History General: reports: Bowel surgery, Gastric surgery, Other (bowel perf, emergancy open abdominal-colostomy, now status post take down) - Family & Social History Living arrangement: At home Living Situation: Alone Social History Notes: The patient is originally from [place], [place] but lived in [place] during her early years. She went to college for a short time, got , got , never got again, she has no children. 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 She previously lived in [place], [place] and [place]. She currently lives in [place], [place]. She lives alone. She does not smoke but did previously smoke cigarettes quit 10 years ago. She denies any illicit drug use. She states that she occasionally drinks a glass of wine. - Substance History Use: Uses substance without health or social issues: NONE Abuse: Recurrent use of substance despite neg consequences: NONE Dependence: Experiences withdrawal or developed tolerances: NONE - POLST Patient has POLST: No POLST Status: Full Code Meds/Allgy - Home Medications Home Medications: Ambulatory Orders Medication Instructions Recorded Confirmed Cyclobenzaprine [Flexeril] 5 mg PO PRN PRN 06/19/17 02/05/18 Losartan [Cozaar] 100 mg PO DAILY 06/19/17 02/05/18 Metoprolol Tartrate [Lopressor] 100 mg PO BID #60 tablet 09/17/17 02/05/18 Multivitamin W/Minerals [Theragran 1 tab PO DAILYWM tablet 09/17/17 01/16/18 M] - Allergies Allergies/Adverse Reactions: Allergies Allergy/AdvReac Type Severity Reaction Status Date / Time Penicillins Allergy Unknown Verified 01/16/18 13:43 Review of Systems - Constitutional Constitutional: reports: Fever, Chills, Weakness, Poor appetite, Night sweats, Weight loss - Gastrointestinal Gastrointestinal: reports: Abdominal pain, Constipation, Diarrhea, Change in bowel habits, Nausea, Vomiting, Poor appetite, Other (status post colostomy take down) - Integumentary Integumentary: reports: Dryness - Neurological Neurological: reports: General weakness - All Other Systems All Other Systems: reports: Reviewed and negative Exam - Vital Signs Reviewed Vital Signs: Yes Vital Signs: Vital Signs x48h Temp Pulse Resp BP BP Pulse Ox 02/09/18 08:33 185/117 H 02/09/18 08:14 36.8 C 106 H 16 185/117 H 95 02/09/18 06:48 105 H 184/126 H 02/09/18 06:33 102 H 194/117 H 02/09/18 06:27 100 190/117 H 02/09/18 06:25 102 H 190/126 H 02/09/18 06:17 102 H 195/119 H 02/09/18 06:13 98 192/111 H 02/09/18 06:05 97 198/118 H 02/09/18 05:59 97 181/113 H 02/09/18 04:45 95 187/114 H 02/09/18 04:08 37.4 C 95 205/126 H 95 - Physical Exam General Appearance: positive: No acute distress, Alert Eyes Bilateral: positive: Normal inspection, PERRL ENT: positive: ENT inspection nml, Pharynx nml, Pharyngeal erythema, Dry mucous membranes Neck: positive: Nml inspection, Thyroid nml, No JVD, Stiff neck Respiratory: positive: Chest non-tender, No respiratory distress, Other ( Bilateral low lobe crackles) Cardiovascular: positive: Regular rate & rhythm, Tachycardia, Systolic murmur, Decreased pulse(s) Peripheral Pulses: positive: 1+ Abdomen: positive: Tenderness, Guarding, Abnml bowel sounds, Other (surgical sites open to air without erythema) Rectal: positive: Black stool Skin: positive: No rash, Warm, Dry Extremities: positive: Non-tender, Full ROM, Nml appearance, No pedal edema Neurologic/Psychiatric: positive: Oriented x3, CN's nml (2-12), Motor nml, Sensation nml, Mood/affect nml Reflexes: Bicep (R): 4+, Bicep (L): 4+ Conclusion/Plan - Diagnosis Diagnosis: Hypertension. Tachycardia. Mitral murmur. mild elevation in troponin (0.13), (0.23), (0.24). - Plan Plan: Echocardiogram today Check labs IV antihypertensives/rate control and blood pressure Telemetry monitoring x 24 hours Adjust meds based on echo EKG Blood cultures x2 Troponins are pending, but considered negative for MN. - Lab Results Lab results reviewed: Yes Fish Bones: 02/10/18 05:23 02/10/18 05:23 - Diagnostic Imaging Results Diagnostic Imaging Results: positive: Final report reviewed - EKG Results EKG Interpreted Independently: Yes EKG Comparison: Changed from prior EKG
--- NOTE | 2018-02-09 10:26 | XRAY Preliminary Report ---
Exam: XR ABDOMEN ACUTE IMPRESSION: 1. No focal consolidation. 2. Multiple loops of distended and mildly dilated small and large bowel with no transition point iden tified. Findings are thought most consistent with postoperative ileus. [facility] SITE ID: [id number]
--- NOTE | 2018-02-09 10:27 | XRAY Report ---
EXAM: ABDOMINAL SERIES AND PA CHEST EXAM DATE: 02/09/2018 10:06 AM. CLINICAL HISTORY: S/p bowel surgery nausea vomiting. COMPARISON: None. TECHNIQUE: 2 views abdomen and 1 view chest. FINDINGS: CHEST: Lungs/Pleura: No focal opacities. No effusion or pneumothorax. Mediastinum: Within exam limitations, cardiomediastinal contour is normal. ABDOMEN: Bowel Gas Pattern: Multiple air distended and mildly dilated loops of small and large bowel throughou t the abdomen. No transition point. Postsurgical changes noted in the left pelvis. Free Air: None. Other: None. IMPRESSION: 1. No focal consolidation. 2. Multiple loops of distended and mildly dilated small and large bowel with no transition point iden tified. Findings are thought most consistent with postoperative ileus. [facility] Referring Provider Line: [phone] SITE ID: [id number]
[2018-02-09] MEDS: PROMETHAZINE INJ 12.5 MG in SODIUM CHLORIDE 0.9% 50 ML IV PRN (10:28)
[2018-02-09] MEDS ORDERED: PROCHLORPERAZINE 25 MG SUPP PR ONE (11:09)
[2018-02-09 11:17] LABS: ALBUMIN 3.9 g/dL (3.2-5.5); ALBUMIN/GLOBULIN RATIO 1.1 (1.0-2.2); CALCIUM 8.7 mg/dL (8.5-10.3); CREATININE 0.7 mg/dL (0.4-1.0); TOTAL PROTEIN 7.5 g/dL (6.7-8.2)
[2018-02-09 11:37] LABS: HB2 TOTAL 15.1 g/dL; HEMOGLOBIN A1C 0.57 g/dL; HEMOGLOBIN A1C % 5.6 % (4.6-6.2)
[2018-02-09] MEDS: ERTAPENEM 1 GM in SODIUM CHLORIDE 0.9% MINIBAG 100 ML IV SCH (11:38)
[2018-02-09] MEDS ORDERED: MAGNESIUM SULFATE 2 GRAM 2 GM/50 ML BAG IV ONE (14:25)
[2018-02-09] MEDS ORDERED: NITROGLYCERIN 2% PASTE TOP ONE (15:00)
[2018-02-09] MEDS ORDERED: NITROGLYCERIN 2% PASTE TOP SCH (15:00)
[2018-02-09] MEDS ORDERED: FUROSEMIDE 40 MG/4 ML VIAL IVP SCH (15:00)
[2018-02-09] MEDS ORDERED: hydrALAZINE INJ 20 MG/ML VIAL IVP SCH (15:00)
[2018-02-09] MEDS: PROCHLORPERAZINE 25 MG SUPP PR PRN (15:38)
[2018-02-09] MEDS: NS W/40 MEQ KCL 1,000 ML IV SCH (16:35)
[2018-02-09] MEDS: METOPROLOL 5 MG/5 ML VIAL IVP SCH ×2 (16:36→20:38)
[2018-02-09] MEDS: POTASSIUM CHLOR 10 MEQ/100 ML 10 MEQ/100 ML BAG IV SCH ×4 (16:36→20:51)
[2018-02-09] MEDS: metroNIDAZOLE 500 MG/100 ML 500 MG/100 ML BAG IV SCH (17:49)
[2018-02-09] MEDS ORDERED: METOPROLOL 5 MG/5 ML VIAL IVP SCH (18:00)
[2018-02-09] MEDS: HYDROmorphone 0.5 MG/0.5 ML SYRINGE IVP PRN (20:38)
[2018-02-09 22:11] LABS: BASOPHILS # (AUTO) 0.1 10^3/uL (0.0-0.1); BASOPHILS % (AUTO) 1.1 %; EOSINOPHILS # (AUTO) 0.1 10^3/uL (0.0-0.7); EOSINOPHILS % (AUTO) 0.5 %; HGB - HEMOGLOBIN 12.4 g/dL (12.0-16.0); LYMPHOCYTES # (AUTO) 2.8 10^3/uL (1.5-3.5); LYMPHOCYTES % (AUTO) 21.5 %; MEAN CORPUSCULAR HGB CONC 32.1 g/dL (32.0-36.0); MEAN CORPUSCULAR VOLUME 84.3 fL (81.0-99.0); MEAN PLATELET VOLUME 8.9 fL (7.9-10.8); MONOCYTES # (AUTO) 1.1 10^3/uL (0.0-1.0); MONOCYTES % (AUTO) 8.2 %; NEUTROPHILS # (AUTO) 8.8 10^3/uL (1.5-6.6); NEUTROPHILS % (AUTO) 68.7 %; PLT - PLATELET COUNT 303 10^3/uL (130-450); RED BLOOD COUNT 4.59 10^6/uL (4.20-5.40); RED CELL DISTRIBUTION WIDTH 17.3 % (12.0-15.0); WHITE BLOOD COUNT 12.9 x10^3/uL (4.8-10.8)
[2018-02-09 22:16] LABS: CALCIUM 8.6 mg/dL (8.5-10.3); CREATININE 0.8 mg/dL (0.4-1.0)
[2018-02-10] MEDS: METOPROLOL 5 MG/5 ML VIAL IVP SCH ×3 (01:23→18:19)
[2018-02-10] MEDS: HYDROmorphone 0.5 MG/0.5 ML SYRINGE IVP PRN ×3 (01:37→21:23)
[2018-02-10] MEDS: SODIUM CHLORIDE FLUSH 0.9% 10 ML SYRINGE IVP PRN ×3 (01:37→11:23)
[2018-02-10] MEDS: metroNIDAZOLE 500 MG/100 ML 500 MG/100 ML BAG IV SCH ×3 (01:43→20:55)
[2018-02-10] MEDS: SODIUM CHLORIDE FLUSH 0.9% 10 ML SYRINGE IVP SCH ×3 (01:49→14:30)
[2018-02-10 06:09] LABS: BASOPHILS # (AUTO) 0.1 10^3/uL (0.0-0.1); BASOPHILS % (AUTO) 0.5 %; EOSINOPHILS # (AUTO) 0.1 10^3/uL (0.0-0.7); EOSINOPHILS % (AUTO) 0.6 %; HGB - HEMOGLOBIN 11.9 g/dL (12.0-16.0); LYMPHOCYTES # (AUTO) 3.9 10^3/uL (1.5-3.5); LYMPHOCYTES % (AUTO) 30.1 %; MEAN CORPUSCULAR HEMOGLOBIN 26.6 pg (27.0-31.0); MEAN CORPUSCULAR HGB CONC 31.4 g/dL (32.0-36.0); MEAN CORPUSCULAR VOLUME 84.6 fL (81.0-99.0); MONOCYTES % (AUTO) 7.6 %; NEUTROPHILS % (AUTO) 61.2 %; PLT - PLATELET COUNT 299 10^3/uL (130-450); RED BLOOD COUNT 4.47 10^6/uL (4.20-5.40); RED CELL DISTRIBUTION WIDTH 17.2 % (12.0-15.0); WHITE BLOOD COUNT 13.1 x10^3/uL (4.8-10.8)
[2018-02-10 06:21] LABS: ALBUMIN 3.5 g/dL (3.2-5.5); ALBUMIN/GLOBULIN RATIO 1.1 (1.0-2.2); BILIRUBIN,TOTAL 1.1 mg/dL (0.2-1.0); CALCIUM 8.7 mg/dL (8.5-10.3); CREATININE 0.7 mg/dL (0.4-1.0); TOTAL PROTEIN 6.7 g/dL (6.7-8.2)
[2018-02-10] MEDS: NS W/40 MEQ KCL 1,000 ML IV SCH (06:45)
[2018-02-10] MEDS ORDERED: METOPROLOL 5 MG/5 ML VIAL IVP SCH ×2 (07:44→14:00)
[2018-02-10] MEDS ORDERED: cloNIDine 0.2 MG PATCH TOP SCH (08:00)
[2018-02-10] MEDS ORDERED: NITROGLYCERIN 2% PASTE TOP SCH (08:00)
[2018-02-10] MEDS ORDERED: ASPIRIN 300 MG SUPP PR SCH (09:00)
--- NOTE | 2018-02-10 10:38 | XRAY Preliminary Report ---
Exam: XR CHEST 1 VIEW X-RAY IMPRESSION: No convincing acute cardiopulmonary abnormality. [facility] SITE ID: [id number]
--- NOTE | 2018-02-10 10:38 | XRAY Report ---
EXAM: CHEST RADIOGRAPHY EXAM DATE: 02/10/2018 09:03 AM. CLINICAL HISTORY: Cough. COMPARISON: 09/08/[address] chest 02/07/2018.. TECHNIQUE: 1 view. FINDINGS: Lungs/Pleura: No focal opacities evident. No pleural effusion. No pneumothorax. Mediastinum: Within exam limitations, the cardiomediastinal contour is normal. Other: None. IMPRESSION: No convincing acute cardiopulmonary abnormality. [facility] Referring Provider Line: [phone] SITE ID: [id number]
[2018-02-10] MEDS ORDERED: diltiaZEM INJ 125 MG in DEXTROSE 5% 100 ML IV SCH ×4 (11:00→19:14)
[2018-02-10] MEDS: ERTAPENEM 1 GM in SODIUM CHLORIDE 0.9% MINIBAG 100 ML IV SCH (11:04)
--- NOTE | 2018-02-10 11:49 | PROVIDER PROGRESS NOTE ---
Subjective - General Admit Date: 02/05/18 Procedure Date: 02/05/18 Post Op Days: 5 Procedure Performed: SILS colostomy takedown - Review of Systems Wound/Incisions: positive: Healing well General: positive: No symptoms (Sitting in chair feeling much better.), Other ( A bout of nausea this morning kept her from eating her breakfast.) HEENT: positive: No symptoms Pulmonary: positive: No symptoms Cardiovascular: positive: No symptoms Gastrointestinal: positive: No symptoms, Nausea (Present but improved.), Flatus Genitourinary: positive: No symptoms Musculoskeletal: positive: Shoulder pain (Right and better.) Skin: positive: No symptoms Psychiatric: positive: No symptoms All Other Systems: positive: Reviewed and negative Objective - Patient Data Vital Signs: Vital Signs x48h Temp Pulse Pulse Pulse Resp BP BP 02/10/18 11:22 195/112 H 02/10/18 09:24 37.5 C 106 H 12 172/114 H 02/10/18 08:40 37.0 C 104 H 18 L 174/109 H 02/10/18 08:22 97 18 176/112 H 02/10/18 08:17 105 H 165/101 H 02/10/18 08:09 91 207/126 H 02/10/18 08:02 96 177/108 H 02/10/18 07:54 185/108 H 02/10/18 07:50 112 H 185/108 H 02/10/18 07:40 36.8 C 111 H 20 196/121 H 02/10/18 05:42 37.5 C 104 H 16 171/99 H 02/10/18 05:37 171/99 H Pulse Ox 02/10/18 11:22 02/10/18 09:24 96 02/10/18 08:40 97 02/10/18 08:22 94 02/10/18 08:17 02/10/18 08:09 02/10/18 08:02 02/10/18 07:54 02/10/18 07:50 02/10/18 07:40 96 02/10/18 05:42 96 02/10/18 05:37 Intake & Output: Intake and Output Totals x24h 02/08/18 02/09/18 02/10/18 23:59 23:59 23:59 Intake Total 3459.910 8547.500 1400 Output Total 1950 1468 625 Balance -864.333 -34.500 775 - Lab Results Lab Results: 02/10/18 05:23 02/10/18 05:23 Other Lab Results: Lab Results x24hrs 02/10/18 02/10/18 02/09/18 Range/Units 05:23 05:23 22:00 WBC 13.1 H (4.8-10.8) x10^3/uL RBC 4.47 (4.20-5.40) 10^6/uL Hgb 11.9 L (12.0-16.0) g/dL Hct 37.8 (37.0-47.0) % MCV 84.6 (81.0-99.0) fL MCH 26.6 L (27.0-31.0) pg MCHC 31.4 L (32.0-36.0) g/dL RDW 17.2 H (12.0-15.0) % Plt Count 299 (130-450) 10^3/uL MPV 9.0 (7.9-10.8) fL Neut # 8.0 H (1.5-6.6) 10^3/uL Lymph # 3.9 H (1.5-3.5) 10^3/uL Steele # 1.0 (0.0-1.0) 10^3/uL Eos # 0.1 (0.0-0.7) 10^3/uL Baso # 0.1 (0.0-0.1) 10^3/uL Absolute Nucleated RBC 0.01 x10^3/uL Nucleated RBC % 0.0 /100WBC Sodium 133 L 133 L (135-145) mmol/L Potassium 3.8 4.1 (3.5-5.0) mmol/L Chloride 96 L 93 L (101-111) mmol/L Carbon Dioxide 25 26 (21-32) mmol/L Anion Gap 12.0 14.0 H (6-13) BUN 22 H 20 (6-20) mg/dL Creatinine 0.7 0.8 (0.4-1.0) mg/dL Estimated GFR (MDRD) 84 L 72 L (>89) Glucose 112 H 125 H (70-100) mg/dL Lactic Acid (0.5-2.2) mmol/L Calcium 8.7 8.6 (8.5-10.3) mg/dL Total Bilirubin 1.1 H (0.2-1.0) mg/dL AST 20 (10-42) IU/L ALT 14 (10-60) IU/L Alkaline Phosphatase 61 (42-121) IU/L Troponin I (<0.49) ng/mL Total Protein 6.7 (6.7-8.2) g/dL Albumin 3.5 (3.2-5.5) g/dL Globulin 3.2 (2.1-4.2) g/dL Albumin/Globulin Ratio 1.1 (1.0-2.2) TSH (0.34-5.60) uIU/mL 02/09/18 02/09/18 02/09/18 Range/Units 22:00 22:00 22:00 WBC 12.9 H (4.8-10.8) x10^3/uL RBC 4.59 (4.20-5.40) 10^6/uL Hgb 12.4 (12.0-16.0) g/dL Hct 38.7 (37.0-47.0) % MCV 84.3 (81.0-99.0) fL MCH 27.0 (27.0-31.0) pg MCHC 32.1 (32.0-36.0) g/dL RDW 17.3 H (12.0-15.0) % Plt Count 303 (130-450) 10^3/uL MPV 8.9 (7.9-10.8) fL Neut # 8.8 H (1.5-6.6) 10^3/uL Lymph # 2.8 (1.5-3.5) 10^3/uL Steele # 1.1 H (0.0-1.0) 10^3/uL Eos # 0.1 (0.0-0.7) 10^3/uL Baso # 0.1 (0.0-0.1) 10^3/uL Absolute Nucleated RBC 0.00 x10^3/uL Nucleated RBC % 0.0 /100WBC Sodium (135-145) mmol/L Potassium (3.5-5.0) mmol/L Chloride (101-111) mmol/L Carbon Dioxide (21-32) mmol/L Anion Gap (6-13) BUN (6-20) mg/dL Creatinine (0.4-1.0) mg/dL Estimated GFR (MDRD) (>89) Glucose (70-100) mg/dL Lactic Acid 0.9 (0.5-2.2) mmol/L Calcium (8.5-10.3) mg/dL Total Bilirubin (0.2-1.0) mg/dL AST (10-42) IU/L ALT (10-60) IU/L Alkaline Phosphatase (42-121) IU/L Troponin I 0.23 (<0.49) ng/mL Total Protein (6.7-8.2) g/dL Albumin (3.2-5.5) g/dL Globulin (2.1-4.2) g/dL Albumin/Globulin Ratio (1.0-2.2) TSH (0.34-5.60) uIU/mL 02/09/18 02/09/18 02/09/18 Range/Units 16:30 16:30 10:58 WBC (4.8-10.8) x10^3/uL RBC (4.20-5.40) 10^6/uL Hgb (12.0-16.0) g/dL Hct (37.0-47.0) % MCV (81.0-99.0) fL MCH (27.0-31.0) pg MCHC (32.0-36.0) g/dL RDW (12.0-15.0) % Plt Count (130-450) 10^3/uL MPV (7.9-10.8) fL Neut # (1.5-6.6) 10^3/uL Lymph # (1.5-3.5) 10^3/uL Steele # (0.0-1.0) 10^3/uL Eos # (0.0-0.7) 10^3/uL Baso # (0.0-0.1) 10^3/uL Absolute Nucleated RBC x10^3/uL Nucleated RBC % /100WBC Sodium (135-145) mmol/L Potassium (3.5-5.0) mmol/L Chloride (101-111) mmol/L Carbon Dioxide (21-32) mmol/L Anion Gap (6-13) BUN (6-20) mg/dL Creatinine (0.4-1.0) mg/dL Estimated GFR (MDRD) (>89) Glucose (70-100) mg/dL Lactic Acid 1.4 (0.5-2.2) mmol/L Calcium (8.5-10.3) mg/dL Total Bilirubin (0.2-1.0) mg/dL AST (10-42) IU/L ALT (10-60) IU/L Alkaline Phosphatase (42-121) IU/L Troponin I 0.24 (<0.49) ng/mL Total Protein (6.7-8.2) g/dL Albumin (3.2-5.5) g/dL Globulin (2.1-4.2) g/dL Albumin/Globulin Ratio (1.0-2.2) TSH 2.02 (0.34-5.60) uIU/mL - Current Medications Current Medications: Current Medications Generic Name Dose Route Start Last Admin Trade Name Averyq PRN Reason Stop Dose Admin Acetaminophen 500 mg 02/08/18 10:11 02/08/18 16:27 Tylenol PO 500 mg Q6HR PRN Administration Fever > 38C (100.4F) Aspirin 300 mg 02/10/18 09:00 02/10/18 11:08 WA 300 mg DAILY AMNA Administration Clonidine HCl 1 patch 02/10/18 08:00 02/10/18 10:14 [id number] TOP 1 patch Q7D AMNA Administration Hydromorphone HCl 0.5 mg 02/09/18 08:51 02/10/18 01:37 Dilaudid Inj Syringe IVP 0.5 mg Q2H PRN Administration Abdominal Pain/moderate Promethazine HCl 12.5 mg/ 50.5 mls @ 100 mls/hr 02/09/18 09:38 02/09/18 11:11 Sodium Chloride IV Infused Q6H PRN Infusion Nausea / Vomiting Ertapenem 1 gm/ Sodium 100 mls @ 200 mls/hr 02/09/18 10:00 02/10/18 11:04 Chloride IV 200 mls/hr DAILY AMNA Administration Metronidazole 500 mg in 100 mls @ 100 mls/hr 02/09/18 18:00 02/10/18 02:55 Flagyl 500 Mg/100 Ml IV Infused Q8H AMNA Infusion Diltiazem HCl 125 mg/ Dextrose 125 mls @ 5 mls/hr 02/10/18 11:00 02/10/18 11: 22 IV 5 mg/hr .Q25H AMNA 5 mls/hr 5 MG/HR Administration Metoprolol Tartrate 7.5 mg 02/10/18 07:44 02/10/18 07:54 Lopressor Inj IVP 7.5 mg Q4HR AMNA Administration Nitroglycerin 1 inch 02/10/18 08:00 02/10/18 07:57 Nitro-Bid (Pkt) TOP 1 inch DAILY AMNA Administration Ondansetron HCl 4 mg 02/05/18 12:08 02/09/18 05:39 Zofran Inj IVP 4 mg Q6H PRN Administration Nausea / Vomiting Prochlorperazine Maleate 25 mg 02/09/18 14:00 02/09/18 15:38 Compazine Supp [place] 25 mg TID PRN Administration Nausea / Vomiting Sodium Chloride 10 ml 02/05/18 17:00 02/10/18 11:08 Normal Saline Flush 0.9% IVP 10 ml 0100,0900,1700 AMNA Administration Sodium Chloride 10 ml 02/05/18 12:08 02/10/18 11:23 Normal Saline Flush 0.9% IVP 10 ml PRN PRN Administration NEEDED PER PROVIDER ORDERS - Physical Exam Rectal: positive: Other (incsion clean without evidence of infection mild distension with gas) Impression/Plan - Problem List Problem List: s/p sils ostomy takedown pod#5. Bowel function return but still with some distension with air. -ambulate -continue liquids Blood pressure still high. She is being transferred to ICU to see if better control can be achieved. Hospitalist following patient.
[2018-02-10] MEDS ORDERED: diltiaZEM INJ 5 MG/ML VIAL IVP ONE (12:43)
[2018-02-10] MEDS: PROCHLORPERAZINE 25 MG SUPP PR PRN (12:48)
[2018-02-10] MEDS ORDERED: NITROGLYCERIN 2% PASTE TOP PRN (15:00)
--- NOTE | 2018-02-10 15:50 | PROVIDER PROGRESS NOTE ---
Assessment/Plan - Problem List (1) Hypertension Assessment/Plan: This was a sudden and sustained finding since yesterday, initialy thought to be due to B-sanford withdrawal or post-op pain. Will continue iv meds for treatment and evaluate labs for hyperthyroidism, pheochromoccytoma, hyperaldosteronism. (2) Tachycardia Assessment/Plan: Possibly from pain, volume depletion, B-sanford withdrawal or related to HTN as with hyperthyroid storm, pheochromocytoma. Will do labs for above and move to ICU for Cardizem drip, decrease B-sanford doses, that are causing her a vagal type side effect (N/V). Will also obtain a CXR, since she had elevation of troponins and BNP, to R/O pulmonary edema (she had a cough yesterday). (3) Ileus Assessment/Plan: Resolving with bowel sounds heard and passing flatus. (4) Elevated troponin Assessment/Plan: Probably due to demand ischemia from HTN and tachycardia, as no wall motion abnormalities were seen on Echo. (5) IHSS (idiopathic hypertrophic subaortic stenosis) Assessment/Plan: Echo is similar to Echo from 09/16 which showed IHSS with a mid-cavity obstruction and hyperdynamic LVEF. For this Dx, volume depletion and afterload reducers are relatively contra-indicated as they will make the gradient worse. Will monitor VS and adjust meds, avoiding those agents if possible. - Current Meds Current Meds: Current Medications Generic Name Dose Route Start Last Admin Trade Name Freq PRN Reason Stop Dose Admin Acetaminophen 500 mg 02/08/18 10:11 02/08/18 16:27 Tylenol PO 500 mg Q6HR PRN Administration Fever > 38C (100.4F) Aspirin 300 mg 02/10/18 09:00 02/10/18 11:08 [place] 300 mg DAILY AMNA Administration Clonidine HCl 1 patch 02/10/18 08:00 02/10/18 10:14 [id number] TOP 1 patch Q7D AMNA Administration Hydromorphone HCl 0.5 mg 02/09/18 08:51 02/10/18 13:14 Dilaudid Inj Syringe IVP 0.5 mg Q2H PRN Administration Abdominal Pain/moderate Promethazine HCl 12.5 mg/ 50.5 mls @ 100 mls/hr 02/09/18 09:38 02/09/18 11:11 Sodium Chloride IV Infused Q6H PRN Infusion Nausea / Vomiting Metronidazole 500 mg in 100 mls @ 100 mls/hr 02/09/18 18:00 02/10/18 13:24 Flagyl 500 Mg/100 Ml IV Infused Q8H AMNA Infusion Diltiazem HCl 125 mg/ Dextrose 125 mls @ 7.5 mls/hr 02/10/18 14:15 02/10/18 14:00 IV 7.5 mg/hr .[id number] AMNA 7.5 mls/hr 7.5 MG/HR Administration Metoprolol Tartrate 2.5 mg 02/10/18 14:00 02/10/18 14:29 Lopressor Inj IVP 2.5 mg Q8HR AMNA Administration Nitroglycerin 1 inch 02/10/18 08:00 02/10/18 07:57 Nitro-Bid (Pkt) TOP 1 inch DAILY AMNA Administration Ondansetron HCl 4 mg 02/05/18 12:08 02/09/18 05:39 Zofran Inj IVP 4 mg Q6H PRN Administration Nausea / Vomiting Prochlorperazine Maleate 25 mg 02/09/18 14:00 02/10/18 12:48 Compazine Supp [place] 25 mg TID PRN Administration Nausea / Vomiting Sodium Chloride 10 ml 02/05/18 17:00 02/10/18 14:30 Normal Saline Flush 0.9% IVP 10 ml 0100,0900,1700 AMNA Administration Sodium Chloride 10 ml 02/05/18 12:08 02/10/18 11:23 Normal Saline Flush 0.9% IVP 10 ml PRN PRN Administration NEEDED PER PROVIDER ORDERS - Lab Result Fish Bone Diagrams: 02/10/18 05:23 02/10/18 05:23 - Additional Planning My Orders: My Active Orders 02/10/18 14:00 Metoprolol Inj [Lopressor Inj] 2.5 mg IVP Q8HR 02/10/18 14:15 Dextrose 5% [D5w] 100 ml diltiaZEM INJ [Cardizem Inj] 125 mg IV 7.5 mg/hr Subjective - Subjective Patient Reports: Feeling Better, Resting Comfortably Nursing Reports: Other (BP 200 this am and HR >100) Objective Vital Signs: Vital Signs - 24 hr 02/09/18 02/09/18 02/09/18 16:36 16:47 18:35 Temperature 36.7 C Heart Rate [ Apical] Heart Rate [ 97 102 H Brachial] Heart Rate [ Monitoring electrodes] Respiratory 16 Rate Blood Pressure 118/77 Blood Pressure 125/79 128/81 H [Right Brachial artery] O2 Saturation 95 02/09/18 02/09/18 02/09/18 20:38 20:41 23:40 Temperature 37.3 C 36.8 C Heart Rate [ Apical] Heart Rate [ 108 H 98 Brachial] Heart Rate [ Monitoring electrodes] Respiratory 18 16 Rate Blood Pressure 136/91 H Blood Pressure 119/82 H 143/90 H [Right Brachial artery] O2 Saturation 95 95 02/10/18 02/10/18 02/10/18 01:20 01:23 01:52 Temperature Heart Rate [ Apical] Heart Rate [ 111 H 99 Brachial] Heart Rate [ Monitoring electrodes] Respiratory Rate Blood Pressure 159/101 H Blood Pressure 159/100 H 159/110 H [Right Brachial artery] O2 Saturation 02/10/18 02/10/18 02/10/18 05:37 05:42 07:40 Temperature 37.5 C 36.8 C Heart Rate [ Apical] Heart Rate [ 104 H 111 H Brachial] Heart Rate [ Monitoring electrodes] Respiratory 16 20 Rate Blood Pressure 171/99 H Blood Pressure 171/99 H 196/121 H [Right Brachial artery] O2 Saturation 96 96 02/10/18 02/10/18 02/10/18 07:50 07:54 08:02 Temperature Heart Rate [ Apical] Heart Rate [ 112 H 96 Brachial] Heart Rate [ Monitoring electrodes] Respiratory Rate Blood Pressure 185/108 H Blood Pressure 185/108 H 177/108 H [Right Brachial artery] O2 Saturation 02/10/18 02/10/18 02/10/18 08:09 08:17 08:22 Temperature Heart Rate [ Apical] Heart Rate [ 91 105 H 97 Brachial] Heart Rate [ Monitoring electrodes] Respiratory 18 Rate Blood Pressure Blood Pressure 207/126 H 165/101 H 176/112 H [Right Brachial artery] O2 Saturation 94 02/10/18 02/10/18 02/10/18 08:40 09:24 10:00 Temperature 37.0 C 37.5 C Heart Rate [ 104 H Apical] Heart Rate [ 18 L Brachial] Heart Rate [ 106 H 104 H Monitoring electrodes] Respiratory 12 19 Rate Blood Pressure Blood Pressure 174/109 H 172/114 H 188/120 H [Right Brachial artery] O2 Saturation 97 96 97 02/10/18 02/10/18 02/10/18 11:00 11:22 12:00 Temperature Heart Rate [ Apical] Heart Rate [ Brachial] Heart Rate [ 108 H 110 H Monitoring electrodes] Respiratory 17 20 Rate Blood Pressure 195/112 H Blood Pressure 195/112 H 202/121 H [Right Brachial artery] O2 Saturation 96 95 02/10/18 02/10/18 02/10/18 13:14 13:45 14:00 Temperature Heart Rate [ Apical] Heart Rate [ Brachial] Heart Rate [ 126 H 111 H 115 H Monitoring electrodes] Respiratory 28 H 19 22 Rate Blood Pressure Blood Pressure 178/125 H 110/89 H 113/83 H [Right Brachial artery] O2 Saturation 97 92 92 02/10/18 02/10/18 02/10/18 14:15 14:29 14:30 Temperature Heart Rate [ Apical] Heart Rate [ Brachial] Heart Rate [ 104 H 90 Monitoring electrodes] Respiratory 21 19 Rate Blood Pressure 122/95 H Blood Pressure 122/95 H 135/97 H [Right Brachial artery] O2 Saturation 92 94 02/10/18 02/10/18 02/10/18 14:35 14:40 14:45 Temperature Heart Rate [ Apical] Heart Rate [ Brachial] Heart Rate [ 89 102 H 99 Monitoring electrodes] Respiratory 18 20 Rate Blood Pressure Blood Pressure 144/92 H 127/97 H 143/97 H [Right Brachial artery] O2 Saturation 94 93 94 02/10/18 02/10/18 02/10/18 15:00 15:15 15:43 Temperature 36.5 C Heart Rate [ Apical] Heart Rate [ Brachial] Heart Rate [ 104 H 106 H 54 L Monitoring electrodes] Respiratory 20 21 16 Rate Blood Pressure Blood Pressure 125/97 H 113/83 H 99/52 L [Right Brachial artery] O2 Saturation 94 94 97 Oxygen O2 Source Room air I&O (Last 24 Hrs): Intake and Output Totals x24h 02/08/18 02/09/18 02/10/18 23:59 23:59 23:59 Intake Total 1628.215 0148.500 1793.834 Output Total 1951 2700 625 Balance -864.333 -34.500 1168.834 General: Alert, Oriented x3 HEENT: Mucous membr. moist/pink Neck: Supple, No JVD Neuro: Non Focal Cardiovascular: Regular rate, No murmurs Respiratory: No respiratory distress, Breath sounds nml Abdomen: Normal bowel sounds, Soft Extremities: No edema - Results Results: Laboratory Results WBC 13.1 x10^3/uL (4.8-10.8) H 02/10/18 05:23 RBC 4.47 10^6/uL (4.20-5.40) 02/10/18 05:23 Hgb 11.9 g/dL (12.0-16.0) L 02/10/18 05:23 Hct 37.8 % (37.0-47.0) 02/10/18 05:23 MCV 84.6 fL (81.0-99.0) 02/10/18 05:23 MCH 26.6 pg (27.0-31.0) L 02/10/18 05:23 MCHC 31.4 g/dL (32.0-36.0) L 02/10/18 05:23 RDW 17.2 % (12.0-15.0) H 02/10/18 05:23 Plt Count 299 10^3/uL (130-450) 02/10/18 05:23 MPV 9.0 fL (7.9-10.8) 02/10/18 05:23 Neut # 8.0 10^3/uL (1.5-6.6) H 02/10/18 05:23 Lymph # 3.9 10^3/uL (1.5-3.5) H 02/10/18 05:23 Saline # 1.0 10^3/uL (0.0-1.0) 02/10/18 05:23 Eos # 0.1 10^3/uL (0.0-0.7) 02/10/18 05:23 Baso # 0.1 10^3/uL (0.0-0.1) 02/10/18 05:23 Absolute Nucleated RBC 0.01 x10^3/uL 02/10/18 05:23 Nucleated RBC % 0.0 /100WBC 02/10/18 05:23 Sodium 133 mmol/L (135-145) L 02/10/18 05:23 Potassium 3.8 mmol/L (3.5-5.0) 02/10/18 05:23 Chloride 96 mmol/L (101-111) L 02/10/18 05:23 Carbon Dioxide 25 mmol/L (21-32) 02/10/18 05:23 Anion Gap 12.0 (6-13) 02/10/18 05:23 BUN 22 mg/dL (6-20) H 02/10/18 05:23 Creatinine 0.7 mg/dL (0.4-1.0) 02/10/18 05:23 Estimated GFR (MDRD) 84 (>89) L 02/10/18 05:23 Glucose 112 mg/dL (70-100) H 02/10/18 05:23 POC Whole Bld Glucose 153 mg/dL (70 - 100) H 02/08/18 21:29 Glycated Hemoglobin 5.6 % (4.6-6.2) 02/09/18 11:19 Estim Average Glucose 114 (70-100) H 02/09/18 11:19 Lactic Acid 0.9 mmol/L (0.5-2.2) 02/09/18 22:00 Calcium 8.7 mg/dL (8.5-10.3) 02/10/18 05:23 Magnesium 1.6 mg/dL (1.7-2.8) L 02/09/18 10:58 Total Bilirubin 1.1 mg/dL (0.2-1.0) H 02/10/18 05:23 AST 20 IU/L (10-42) 02/10/18 05:23 ALT 14 IU/L (10-60) 02/10/18 05:23 Alkaline Phosphatase 61 IU/L (42-121) 02/10/18 05:23 Troponin I 0.23 ng/mL (<0.49) 02/09/18 22:00 B-Natriuretic Peptide 992 pg/mL (5-100) H 02/09/18 10:58 Total Protein 6.7 g/dL (6.7-8.2) 02/10/18 05:23 Albumin 3.5 g/dL (3.2-5.5) 02/10/18 05:23 Globulin 3.2 g/dL (2.1-4.2) 02/10/18 05:23 Albumin/Globulin Ratio 1.1 (1.0-2.2) 02/10/18 05:23 TSH 2.02 uIU/mL (0.34-5.60) 02/09/18 10:58 - Procedures Procedures: Procedures BYPASS DESCENDING COLON TO CUTANEOUS, OPEN APPROACH (09/03/17) EXCISION OF ASCENDING COLON, OPEN APPROACH (09/03/17) EXCISION OF ILEUM, OPEN APPROACH (09/03/17) INSERTION OF INFUSION DEV INTO SUP VENA CAVA, PERC APPROACH (09/03/17) INTRODUCTION OF NUTRITIONAL INTO CENTRAL VEIN, PERC APPROACH (09/03/17) RESECTION OF SIGMOID COLON, OPEN APPROACH (09/03/17) RESPIRATORY VENTILATION, GREATER THAN 96 CONSECUTIVE HOURS (09/03/17) TRANSFUSE NONAUT RED BLOOD CELLS IN CENTRAL VEIN, PERC (09/03/17)
--- NOTE | 2018-02-10 16:32 | PROVIDER PROGRESS NOTE ---
Subjective - General Admit Date: 02/05/18 Procedure Date: 02/05/18 Post Op Days: 5 Procedure Performed: SILS colostomy takedown - Review of Systems Wound/Incisions: positive: Healing well General: positive: No symptoms (Sitting in chair feeling much better.), Other ( A bout of nausea this morning kept her from eating her breakfast.) HEENT: positive: No symptoms Pulmonary: positive: No symptoms Cardiovascular: positive: No symptoms Gastrointestinal: positive: No symptoms, Nausea (Present but improved.), Flatus Genitourinary: positive: No symptoms Musculoskeletal: positive: Shoulder pain (Right and better.) Skin: positive: No symptoms Psychiatric: positive: No symptoms All Other Systems: positive: Reviewed and negative Objective - Patient Data Vital Signs: Vital Signs x48h Temp Pulse Pulse Pulse Resp BP BP 02/10/18 15:43 36.5 C 54 L 16 99/52 L 02/10/18 15:15 106 H 21 113/83 H 02/10/18 15:00 104 H 20 125/97 H 02/10/18 14:45 99 20 143/97 H 02/10/18 14:40 102 H 18 127/97 H 02/10/18 14:35 89 144/92 H 02/10/18 14:30 90 19 135/97 H 02/10/18 14:29 122/95 H 02/10/18 14:15 104 H 21 122/95 H 02/10/18 14:00 115 H 22 113/83 H 02/10/18 13:45 111 H 19 110/89 H 02/10/18 13:14 126 H 28 H 178/125 H 02/10/18 12:00 110 H 20 202/121 H 02/10/18 11:22 195/112 H 02/10/18 11:00 108 H 17 195/112 H 02/10/18 10:00 104 H 19 188/120 H 02/10/18 09:24 37.5 C 106 H 12 172/114 H 02/10/18 08:40 37.0 C 104 H 18 L 174/109 H 02/10/18 08:22 97 18 176/112 H Pulse Ox 02/10/18 15:43 97 02/10/18 15:15 94 02/10/18 15:00 94 02/10/18 14:45 94 02/10/18 14:40 93 02/10/18 14:35 94 02/10/18 14:30 94 02/10/18 14:29 02/10/18 14:15 92 02/10/18 14:00 92 02/10/18 13:45 92 02/10/18 13:14 97 02/10/18 12:00 95 02/10/18 11:22 02/10/18 11:00 96 02/10/18 10:00 97 02/10/18 09:24 96 02/10/18 08:40 97 02/10/18 08:22 94 Intake & Output: Intake and Output Totals x24h 02/08/18 02/09/18 02/10/18 23:59 23:59 23:59 Intake Total 7725.622 3325.500 1793.834 Output Total 1951 2700 625 Balance -864.333 -34.500 1168.834 - Lab Results Lab Results: 02/10/18 05:23 02/10/18 05:23 Other Lab Results: Lab Results x24hrs 02/10/18 02/10/18 02/09/18 Range/Units 05:23 05:23 22:00 WBC 13.1 H (4.8-10.8) x10^3/uL RBC 4.47 (4.20-5.40) 10^6/uL Hgb 11.9 L (12.0-16.0) g/dL Hct 37.8 (37.0-47.0) % MCV 84.6 (81.0-99.0) fL MCH 26.6 L (27.0-31.0) pg MCHC 31.4 L (32.0-36.0) g/dL RDW 17.2 H (12.0-15.0) % Plt Count 299 (130-450) 10^3/uL MPV 9.0 (7.9-10.8) fL Neut # 8.0 H (1.5-6.6) 10^3/uL Lymph # 3.9 H (1.5-3.5) 10^3/uL Will # 1.0 (0.0-1.0) 10^3/uL Eos # 0.1 (0.0-0.7) 10^3/uL Baso # 0.1 (0.0-0.1) 10^3/uL Absolute Nucleated RBC 0.01 x10^3/uL Nucleated RBC % 0.0 /100WBC Sodium 133 L 133 L (135-145) mmol/L Potassium 3.8 4.1 (3.5-5.0) mmol/L Chloride 96 L 93 L (101-111) mmol/L Carbon Dioxide 25 26 (21-32) mmol/L Anion Gap 12.0 14.0 H (6-13) BUN 22 H 20 (6-20) mg/dL Creatinine 0.7 0.8 (0.4-1.0) mg/dL Estimated GFR (MDRD) 84 L 72 L (>89) Glucose 112 H 125 H (70-100) mg/dL Lactic Acid (0.5-2.2) mmol/L Calcium 8.7 8.6 (8.5-10.3) mg/dL Total Bilirubin 1.1 H (0.2-1.0) mg/dL AST 20 (10-42) IU/L ALT 14 (10-60) IU/L Alkaline Phosphatase 61 (42-121) IU/L Troponin I (<0.49) ng/mL Total Protein 6.7 (6.7-8.2) g/dL Albumin 3.5 (3.2-5.5) g/dL Globulin 3.2 (2.1-4.2) g/dL Albumin/Globulin Ratio 1.1 (1.0-2.2) 02/09/18 02/09/18 02/09/18 Range/Units 22:00 22:00 22:00 WBC 12.9 H (4.8-10.8) x10^3/uL RBC 4.59 (4.20-5.40) 10^6/uL Hgb 12.4 (12.0-16.0) g/dL Hct 38.7 (37.0-47.0) % MCV 84.3 (81.0-99.0) fL MCH 27.0 (27.0-31.0) pg MCHC 32.1 (32.0-36.0) g/dL RDW 17.3 H (12.0-15.0) % Plt Count 303 (130-450) 10^3/uL MPV 8.9 (7.9-10.8) fL Neut # 8.8 H (1.5-6.6) 10^3/uL Lymph # 2.8 (1.5-3.5) 10^3/uL Will # 1.1 H (0.0-1.0) 10^3/uL Eos # 0.1 (0.0-0.7) 10^3/uL Baso # 0.1 (0.0-0.1) 10^3/uL Absolute Nucleated RBC 0.00 x10^3/uL Nucleated RBC % 0.0 /100WBC Sodium (135-145) mmol/L Potassium (3.5-5.0) mmol/L Chloride (101-111) mmol/L Carbon Dioxide (21-32) mmol/L Anion Gap (6-13) BUN (6-20) mg/dL Creatinine (0.4-1.0) mg/dL Estimated GFR (MDRD) (>89) Glucose (70-100) mg/dL Lactic Acid 0.9 (0.5-2.2) mmol/L Calcium (8.5-10.3) mg/dL Total Bilirubin (0.2-1.0) mg/dL AST (10-42) IU/L ALT (10-60) IU/L Alkaline Phosphatase (42-121) IU/L Troponin I 0.23 (<0.49) ng/mL Total Protein (6.7-8.2) g/dL Albumin (3.2-5.5) g/dL Globulin (2.1-4.2) g/dL Albumin/Globulin Ratio (1.0-2.2) 02/09/18 02/09/18 Range/Units 16:30 16:30 WBC (4.8-10.8) x10^3/uL RBC (4.20-5.40) 10^6/uL Hgb (12.0-16.0) g/dL Hct (37.0-47.0) % MCV (81.0-99.0) fL MCH (27.0-31.0) pg MCHC (32.0-36.0) g/dL RDW (12.0-15.0) % Plt Count (130-450) 10^3/uL MPV (7.9-10.8) fL Neut # (1.5-6.6) 10^3/uL Lymph # (1.5-3.5) 10^3/uL Will # (0.0-1.0) 10^3/uL Eos # (0.0-0.7) 10^3/uL Baso # (0.0-0.1) 10^3/uL Absolute Nucleated RBC x10^3/uL Nucleated RBC % /100WBC Sodium (135-145) mmol/L Potassium (3.5-5.0) mmol/L Chloride (101-111) mmol/L Carbon Dioxide (21-32) mmol/L Anion Gap (6-13) BUN (6-20) mg/dL Creatinine (0.4-1.0) mg/dL Estimated GFR (MDRD) (>89) Glucose (70-100) mg/dL Lactic Acid 1.4 (0.5-2.2) mmol/L Calcium (8.5-10.3) mg/dL Total Bilirubin (0.2-1.0) mg/dL AST (10-42) IU/L ALT (10-60) IU/L Alkaline Phosphatase (42-121) IU/L Troponin I 0.24 (<0.49) ng/mL Total Protein (6.7-8.2) g/dL Albumin (3.2-5.5) g/dL Globulin (2.1-4.2) g/dL Albumin/Globulin Ratio (1.0-2.2) - Current Medications Current Medications: Current Medications Generic Name Dose Route Start Last Admin Trade Name Poonam PRN Reason Stop Dose Admin Acetaminophen 500 mg 02/08/18 10:11 02/08/18 16:27 Tylenol PO 500 mg Q6HR PRN Administration Fever > 38C (100.4F) Aspirin 300 mg 02/10/18 09:00 02/10/18 11:08 [place] 300 mg DAILY AMNA Administration Clonidine HCl 1 patch 02/10/18 08:00 02/10/18 10:14 [id number] TOP 1 patch Q7D AMNA Administration Hydromorphone HCl 0.5 mg 02/09/18 08:51 02/10/18 13:14 Dilaudid Inj Syringe IVP 0.5 mg Q2H PRN Administration Abdominal Pain/moderate Promethazine HCl 12.5 mg/ 50.5 mls @ 100 mls/hr 02/09/18 09:38 02/09/18 11:11 Sodium Chloride IV Infused Q6H PRN Infusion Nausea / Vomiting Metronidazole 500 mg in 100 mls @ 100 mls/hr 02/09/18 18:00 02/10/18 13:24 Flagyl 500 Mg/100 Ml IV Infused Q8H AMNA Infusion Diltiazem HCl 125 mg/ Dextrose 125 mls @ 7.5 mls/hr 02/10/18 14:15 02/10/18 14:00 IV 7.5 mg/hr .[id number] AMNA 7.5 mls/hr 7.5 MG/HR Administration Metoprolol Tartrate 2.5 mg 02/10/18 14:00 02/10/18 14:29 Lopressor Inj IVP 2.5 mg Q8HR AMNA Administration Nitroglycerin 1 inch 02/10/18 08:00 02/10/18 07:57 Nitro-Bid (Pkt) TOP 1 inch DAILY AMNA Administration Ondansetron HCl 4 mg 02/05/18 12:08 02/09/18 05:39 Zofran Inj IVP 4 mg Q6H PRN Administration Nausea / Vomiting Prochlorperazine Maleate 25 mg 02/09/18 14:00 02/10/18 12:48 Compazine Supp ME 25 mg TID PRN Administration Nausea / Vomiting Sodium Chloride 10 ml 02/05/18 17:00 02/10/18 14:30 Normal Saline Flush 0.9% IVP 10 ml 0100,0900,1700 AMNA Administration Sodium Chloride 10 ml 02/05/18 12:08 02/10/18 11:23 Normal Saline Flush 0.9% IVP 10 ml PRN PRN Administration NEEDED PER PROVIDER ORDERS
[2018-02-10] MEDS ORDERED: D5NS W/20 MEQ KCL 1,000 ML IV STA (19:13)
--- NOTE | 2018-02-11 00:22 | PROVIDER PROGRESS NOTE ---
Subjective - General Admit Date: 02/05/18 Procedure Date: 02/05/18 Post Op Days: 5 Procedure Performed: SILS colostomy takedown - Review of Systems Wound/Incisions: positive: Healing well General: positive: Other (A bout of nausea this morning kept her from eating her breakfast.) Gastrointestinal: positive: Nausea (Present but improved.) Musculoskeletal: positive: Shoulder pain (Right and better.) Skin: positive: No symptoms Objective - Patient Data Vital Signs: Vital Signs x48h Temp Pulse Resp BP Pulse Ox 02/10/18 23:00 103 H 23 110/82 H 94 02/10/18 22:00 109 H 20 107/78 95 02/10/18 21:00 103 H 18 113/83 H 95 02/10/18 20:00 108 H 19 143/102 H 96 02/10/18 19:00 118 H 21 131/100 H 96 02/10/18 18:45 117 H 21 139/40 H 96 02/10/18 18:35 115 H 22 127/100 H 96 02/10/18 18:30 114 H 13 122/97 H 94 02/10/18 18:25 127 H 19 119/91 H 94 02/10/18 18:22 131 H 21 113/90 H 95 02/10/18 18:17 127 H 18 121/88 H 96 02/10/18 17:00 108 H 23 152/106 H 95 02/10/18 16:34 113 H 13 168/114 H 02/10/18 16:30 37.3 C 110 H 23 155/101 H 94 02/10/18 16:00 101 H 21 154/105 H 94 02/10/18 15:45 96 22 146/99 H 94 Intake & Output: Intake and Output Totals x24h 02/08/18 02/09/18 02/10/18 23:59 23:59 23:59 Intake Total 6159.272 0289.500 2319.406 Output Total 1951 2700 1325 Balance -864.333 -34.500 994.406 - Lab Results Lab Results: 02/10/18 05:23 02/10/18 05:23 Other Lab Results: Lab Results x24hrs 02/10/18 02/10/18 Range/Units 05:23 05:23 WBC 13.1 H (4.8-10.8) x10^3/uL RBC 4.47 (4.20-5.40) 10^6/uL Hgb 11.9 L (12.0-16.0) g/dL Hct 37.8 (37.0-47.0) % MCV 84.6 (81.0-99.0) fL MCH 26.6 L (27.0-31.0) pg MCHC 31.4 L (32.0-36.0) g/dL RDW 17.2 H (12.0-15.0) % Plt Count 299 (130-450) 10^3/uL MPV 9.0 (7.9-10.8) fL Neut # 8.0 H (1.5-6.6) 10^3/uL Lymph # 3.9 H (1.5-3.5) 10^3/uL [place] # 1.0 (0.0-1.0) 10^3/uL Eos # 0.1 (0.0-0.7) 10^3/uL Baso # 0.1 (0.0-0.1) 10^3/uL Absolute Nucleated RBC 0.01 x10^3/uL Nucleated RBC % 0.0 /100WBC Sodium 133 L (135-145) mmol/L Potassium 3.8 (3.5-5.0) mmol/L Chloride 96 L (101-111) mmol/L Carbon Dioxide 25 (21-32) mmol/L Anion Gap 12.0 (6-13) BUN 22 H (6-20) mg/dL Creatinine 0.7 (0.4-1.0) mg/dL Estimated GFR (MDRD) 84 L (>89) Glucose 112 H (70-100) mg/dL Calcium 8.7 (8.5-10.3) mg/dL Total Bilirubin 1.1 H (0.2-1.0) mg/dL AST 20 (10-42) IU/L ALT 14 (10-60) IU/L Alkaline Phosphatase 61 (42-121) IU/L Total Protein 6.7 (6.7-8.2) g/dL Albumin 3.5 (3.2-5.5) g/dL Globulin 3.2 (2.1-4.2) g/dL Albumin/Globulin Ratio 1.1 (1.0-2.2) - Current Medications Current Medications: Current Medications Generic Name Dose Route Start Last Admin Trade Name Freq PRN Reason Stop Dose Admin Acetaminophen 500 mg 02/08/18 10:11 02/08/18 16:27 Tylenol PO 500 mg Q6HR PRN Administration Fever > 38C (100.4F) Aspirin 300 mg 02/10/18 09:00 02/10/18 11:08 [place] 300 mg DAILY AMNA Administration Clonidine HCl 1 patch 02/10/18 08:00 02/10/18 10:14 [id number] TOP 1 patch Q7D AMNA Administration Hydromorphone HCl 0.5 mg 02/09/18 08:51 02/10/18 21:23 Dilaudid Inj Syringe IVP 0.5 mg Q2H PRN Administration Abdominal Pain/moderate Promethazine HCl 12.5 mg/ 50.5 mls @ 100 mls/hr 02/09/18 09:38 02/09/18 11:11 Sodium Chloride IV Infused Q6H PRN Infusion Nausea / Vomiting Metronidazole 500 mg in 100 mls @ 100 mls/hr 02/10/18 21:00 02/10/18 21:55 Flagyl 500 Mg/100 Ml IV Infused Q8H AMNA Infusion Potassium Chloride/Dextrose/Sod Cl 1,000 mls @ 83.333 mls/hr 02/10/18 19:13 02/10/18 23:00 IV 02/11/18 07:12 83.3 mls/hr .Q12H STA Infusion Diltiazem HCl 125 mg/ Dextrose 125 mls @ 10 mls/hr 02/10/18 19:14 02/10/18 23 :00 IV 10 mg/hr .[id number] AMNA 10 mls/hr 10 MG/HR Infusion Metoprolol Tartrate 2.5 mg 02/10/18 18:00 02/10/18 18:19 Lopressor Inj IVP 2.5 mg Q6HR AMNA Administration Nitroglycerin 1 inch 02/10/18 08:00 02/10/18 07:57 Nitro-Bid (Pkt) TOP 1 inch DAILY AMNA Administration Ondansetron HCl 4 mg 02/05/18 12:08 02/09/18 05:39 Zofran Inj IVP 4 mg Q6H PRN Administration Nausea / Vomiting Prochlorperazine Maleate 25 mg 02/09/18 14:00 02/10/18 12:48 Compazine Supp VT 25 mg TID PRN Administration Nausea / Vomiting Sodium Chloride 10 ml 02/05/18 17:00 02/10/18 14:30 Normal Saline Flush 0.9% IVP 10 ml 0100,0900,1700 AMNA Administration Sodium Chloride 10 ml 02/05/18 12:08 02/10/18 11:23 Normal Saline Flush 0.9% IVP 10 ml PRN PRN Administration NEEDED PER PROVIDER ORDERS - Physical Exam Abdomen: positive: Other (incision clean without drainage or erythema) Impression/Plan - Problem List Problem List: s/p SILS colostomy takedown POD#4. Having some nausea as she still has an ileus. -Continue liquids -Ambulate Hypertension. Still hypertensive despite being on preop medications. Hospitalist consult re hypertension.
[2018-02-11] MEDS: METOPROLOL 5 MG/5 ML VIAL IVP SCH ×2 (00:45→05:51)
[2018-02-11] MEDS: SODIUM CHLORIDE FLUSH 0.9% 10 ML SYRINGE IVP SCH ×4 (02:31→21:46)
[2018-02-11] MEDS: HYDROmorphone 0.5 MG/0.5 ML SYRINGE IVP PRN (03:58)
[2018-02-11 04:14] LABS: BASOPHILS # (AUTO) 0.1 10^3/uL (0.0-0.1); BASOPHILS % (AUTO) 0.7 %; EOSINOPHILS # (AUTO) 0.1 10^3/uL (0.0-0.7); EOSINOPHILS % (AUTO) 1.2 %; LYMPHOCYTES # (AUTO) 2.7 10^3/uL (1.5-3.5); LYMPHOCYTES % (AUTO) 25.1 %; MEAN CORPUSCULAR HEMOGLOBIN 28.3 pg (27.0-31.0); MEAN CORPUSCULAR HGB CONC 33.3 g/dL (32.0-36.0); MEAN PLATELET VOLUME 8.6 fL (7.9-10.8); NEUTROPHILS # (AUTO) 6.8 10^3/uL (1.5-6.6); PLT - PLATELET COUNT 290 10^3/uL (130-450); RED CELL DISTRIBUTION WIDTH 17.3 % (12.0-15.0); WHITE BLOOD COUNT 10.6 x10^3/uL (4.8-10.8)
[2018-02-11] MEDS: metroNIDAZOLE 500 MG/100 ML 500 MG/100 ML BAG IV SCH ×2 (05:47→13:51)
[2018-02-11] MEDS ORDERED: SODIUM CHLORIDE 0.9% 500 ML IV ONE (09:11)
[2018-02-11] MEDS ORDERED: IOPAMIDOL-300 100 ML VIAL IVP ONE (10:53)
[2018-02-11] MEDS ORDERED: IOPAMIDOL-300 100 ML VIAL ONE (10:54)
[2018-02-11] MEDS ORDERED: cloNIDine 0.1 MG PATCH TOP SCH (11:00)
[2018-02-11] MEDS ORDERED: ERTAPENEM 1 GM in SODIUM CHLORIDE 0.9% MINIBAG 100 ML IV SCH (11:00)
--- NOTE | 2018-02-11 11:18 | CT Report ---
CT ANGIO ABDOMEN AND PELVIS: 02/11/2018 CLINICAL INDICATION: Hypertension, evaluate for renal artery stenosis, evaluate bowel postop. TECHNIQUE: Axial CT images of the abdomen and pelvis were obtained with 100 mL Isovue 300 intravenously, with 3-D reconstructions performed. COMPARISON: 09/04/2017. FINDINGS: Limited evaluation of the lung bases is unremarkable. ABDOMEN: There is mild atherosclerotic irregularity of the abdominal aorta, without evidence of aneurysm or dissection. The celiac, superior mesenteric, and inferior mesenteric arteries are widely patent. The renal arteries are widely patent, without evidence of a renal artery stenosis. Allowing for the arterial phase of contrast enhancement, the liver, spleen, pancreas, kidneys and adrenal glands appear unremarkable. There is diffuse dilatation of large and small bowel loops, compatible with ileus. Postoperative changes are seen in the left lower quadrant abdominal wall, with small seroma at the incision site. PELVIS: The iliacs demonstrate mild atherosclerotic irregularity. The urinary bladder is distended. The surgical anastomoses in the right and left lower quadrants appear unremarkable. No pelvic free fluid or adenopathy is appreciated. Osseous structures demonstrate degenerative changes. IMPRESSION: 1. NO EVIDENCE OF A HEMODYNAMICALLY SIGNIFICANT RENAL ARTERY STENOSIS. 2. LIKELY POSTOPERATIVE ILEUS. 3. POSTOPERATIVE CHANGES IN THE LEFT LOWER QUADRANT ABDOMINAL WALL. CT DOSE REDUCTION STATEMENT In accordance with CT protocol optimization, one or more of the following dose reduction techniques were utilized for this exam: automated exposure control, adjustment of mA and/or KV based on patient size, or use of iterative reconstructive technique. TD: 02/11/2018 11:18
[2018-02-11] MEDS ORDERED: METOPROLOL 5 MG/5 ML VIAL IVP ONE (11:30)
[2018-02-11] MEDS: ACETAMINOPHEN 500 MG TABLET PO SCH ×2 (11:33→18:20)
[2018-02-11] MEDS: oxyCODONE 5 MG TABLET PO PRN ×2 (11:33→20:18)
[2018-02-11] MEDS: LOSARTAN 50 MG TABLET PO SCH (11:34)
[2018-02-11] MEDS: METOPROLOL TARTRATE 50 MG TABLET PO SCH ×2 (11:34→20:18)
--- NOTE | 2018-02-11 12:52 | PROVIDER PROGRESS NOTE ---
Assessment/Plan - Problem List (1) Hypertension Qualifiers: Hypertension type: essential hypertension Qualified Code(s): I10 - Essential (primary) hypertension Assessment/Plan: Renal artery stenosis has been ruled out and pheochromocytoma has been ruled out by CTA or abdomen and pelvis done today. I went over report by Dr Harper, reading Radiologist. Her BP was 90-100 systolic overnight. This am her po meds are being restarted by surgeon. This uncontrolled HTN was likely due to B-sanford withdrawal and possible post- op pain. I will sign off the case. (2) Tachycardia Assessment/Plan: Resolved with use of Cardizem and Metoprolol. Restarting her po meds to be dome today. (3) Ileus Assessment/Plan: Improving. (4) IHSS (idiopathic hypertrophic subaortic stenosis) Assessment/Plan: She has had 2 Ehos shoing a mid-cavity obstruction. This is worsened when a person with IHSS gaets volume depleted, which would decrease her cardiac output and add to hypotension and could cause syncope. Meds such as HR control meds are a good option for her BP control. I will sign off the case. Please recall with any further questions. - Current Meds Current Meds: Current Medications Generic Name Dose Route Start Last Admin Trade Name Freq PRN Reason Stop Dose Admin Acetaminophen 500 mg 02/11/18 12:00 02/11/18 11:33 Tylenol PO 500 mg Q6HR AMNA Administration Clonidine HCl 1 patch 02/11/18 11:00 02/11/18 11:35 [id number] TOP 1 patch Q7D AMNA Administration Hydromorphone HCl 0.5 mg 02/09/18 08:51 02/11/18 03:58 Dilaudid Inj Syringe IVP 0.5 mg Q2H PRN Administration Abdominal Pain/moderate Promethazine HCl 12.5 mg/ 50.5 mls @ 100 mls/hr 02/09/18 09:38 02/09/18 11:11 Sodium Chloride IV Infused Q6H PRN Infusion Nausea / Vomiting Ertapenem 1 gm/ Sodium 100 mls @ 200 mls/hr 02/11/18 11:00 02/11/18 11:56 Chloride IV 200 mls/hr 1100 AMNA Administration Metronidazole 500 mg in 100 mls @ 100 mls/hr 02/10/18 21:00 02/11/18 06:47 Flagyl 500 Mg/100 Ml IV Infused Q8H AMNA Infusion Losartan Potassium 100 mg 02/11/18 11:15 02/11/18 11:34 Cozaar PO 100 mg DAILY AMNA Administration Metoprolol Tartrate 100 mg 02/11/18 11:15 02/11/18 11:34 Lopressor PO 100 mg BID AMNA Administration Ondansetron HCl 4 mg 02/05/18 12:08 02/09/18 05:39 Zofran Inj IVP 4 mg Q6H PRN Administration Nausea / Vomiting Oxycodone HCl 5 mg 02/11/18 09:15 02/11/18 11:33 Roxicodone PO 5 mg Q4HR PRN Administration PAIN Prochlorperazine Maleate 25 mg 02/09/18 14:00 02/10/18 12:48 Compazine Supp RI 25 mg TID PRN Administration Nausea / Vomiting Sodium Chloride 10 ml 02/05/18 17:00 02/11/18 09:05 Normal Saline Flush 0.9% IVP 20 ml 0100,0900,1700 AMNA Administration Sodium Chloride 10 ml 02/05/18 12:08 02/10/18 11:23 Normal Saline Flush 0.9% IVP 10 ml PRN PRN Administration NEEDED PER PROVIDER ORDERS - Lab Result Fish Bone Diagrams: 02/11/18 04:05 02/10/18 05:23 - Additional Planning My Orders: My Active Orders 02/10/18 17:09 Miscellaenous Nursing Order [RC] QSHIFT 02/11/18 11:00 cloNIDine 0.1 MG PATCH [[id number]] 1 patch TOP Q7D 02/12/18 05:00 BMP - BASIC METABOLIC PANEL [CHEM] DAILYLAB 02/13/18 05:00 BMP - BASIC METABOLIC PANEL [CHEM] DAILYLAB Subjective - Subjective Patient Reports: Feeling Better Nursing Reports: Other (Had a loose BM) Objective Vital Signs: Vital Signs - 24 hr 02/10/18 02/10/18 02/10/18 13:00 13:14 13:15 Temperature Heart Rate [ 110 H 126 H 116 H Monitoring electrodes] Respiratory 28 H 28 H 20 Rate Blood Pressure Blood Pressure 186/118 H 178/125 H 157/102 H [Right Brachial artery] O2 Saturation 97 02/10/18 02/10/18 02/10/18 13:30 13:45 14:00 Temperature Heart Rate [ 110 H 111 H 115 H Monitoring electrodes] Respiratory 24 19 22 Rate Blood Pressure Blood Pressure 127/92 H 110/89 H 113/83 H [Right Brachial artery] O2 Saturation 92 92 92 02/10/18 02/10/18 02/10/18 14:15 14:29 14:30 Temperature Heart Rate [ 104 H 90 Monitoring electrodes] Respiratory 21 19 Rate Blood Pressure 122/95 H Blood Pressure 122/95 H 135/97 H [Right Brachial artery] O2 Saturation 92 94 02/10/18 02/10/18 02/10/18 14:35 14:40 14:45 Temperature Heart Rate [ 89 102 H 99 Monitoring electrodes] Respiratory 18 20 Rate Blood Pressure Blood Pressure 144/92 H 127/97 H 143/97 H [Right Brachial artery] O2 Saturation 94 93 94 02/10/18 02/10/18 02/10/18 15:00 15:15 15:30 Temperature Heart Rate [ 104 H 106 H 100 Monitoring electrodes] Respiratory 20 21 19 Rate Blood Pressure Blood Pressure 125/97 H 113/83 H 149/101 H [Right Brachial artery] O2 Saturation 94 94 94 02/10/18 02/10/18 02/10/18 15:45 16:00 16:30 Temperature 37.3 C Heart Rate [ 96 101 H 110 H Monitoring electrodes] Respiratory 22 21 23 Rate Blood Pressure Blood Pressure 146/99 H 154/105 H 155/101 H [Right Brachial artery] O2 Saturation 94 94 94 02/10/18 02/10/18 02/10/18 16:34 17:00 18:17 Temperature Heart Rate [ 113 H 108 H 127 H Monitoring electrodes] Respiratory 13 23 18 Rate Blood Pressure Blood Pressure 168/114 H 152/106 H 121/88 H [Right Brachial artery] O2 Saturation 95 96 02/10/18 02/10/18 02/10/18 18:22 18:25 18:30 Temperature Heart Rate [ 131 H 127 H 114 H Monitoring electrodes] Respiratory 21 19 13 Rate Blood Pressure Blood Pressure 113/90 H 119/91 H 122/97 H [Right Brachial artery] O2 Saturation 95 94 94 02/10/18 02/10/18 02/10/18 18:35 18:45 19:00 Temperature Heart Rate [ 115 H 117 H 118 H Monitoring electrodes] Respiratory 22 21 21 Rate Blood Pressure Blood Pressure 127/100 H 139/40 H 131/100 H [Right Brachial artery] O2 Saturation 96 96 96 02/10/18 02/10/18 02/10/18 20:00 21:00 22:00 Temperature 37.2 C Heart Rate [ 108 H 103 H 109 H Monitoring electrodes] Respiratory 19 18 20 Rate Blood Pressure Blood Pressure 143/102 H 113/83 H 107/78 [Right Brachial artery] O2 Saturation 96 95 95 02/10/18 02/11/18 02/11/18 23:00 00:00 01:00 Temperature 37.2 C Heart Rate [ 103 H 107 H 108 H Monitoring electrodes] Respiratory 23 19 20 Rate Blood Pressure Blood Pressure 110/82 H 97/76 115/81 H [Right Brachial artery] O2 Saturation 94 93 94 02/11/18 02/11/18 02/11/18 02:00 03:00 04:00 Temperature 37.2 C Heart Rate [ 113 H 106 H 103 H Monitoring electrodes] Respiratory 20 23 25 H Rate Blood Pressure Blood Pressure 121/92 H 126/87 H 119/83 H [Right Brachial artery] O2 Saturation 93 95 93 02/11/18 02/11/18 02/11/18 05:00 05:51 05:56 Temperature Heart Rate [ 107 H 108 H 96 Monitoring electrodes] Respiratory 21 21 20 Rate Blood Pressure 103/77 Blood Pressure 108/86 H 103/77 96/78 [Right Brachial artery] O2 Saturation 94 93 93 02/11/18 02/11/18 02/11/18 06:00 06:15 06:30 Temperature Heart Rate [ 94 100 88 Monitoring electrodes] Respiratory 20 19 22 Rate Blood Pressure Blood Pressure 97/74 91/72 97/68 [Right Brachial artery] O2 Saturation 94 94 94 02/11/18 02/11/18 02/11/18 06:45 07:00 08:00 Temperature Heart Rate [ 100 97 103 H Monitoring electrodes] Respiratory 21 25 H 25 H Rate Blood Pressure Blood Pressure 98/73 97/74 110/84 H [Right Brachial artery] O2 Saturation 95 95 96 02/11/18 02/11/18 02/11/18 09:00 10:00 11:00 Temperature 36.8 C Heart Rate [ 119 H 96 107 H Monitoring electrodes] Respiratory 19 20 23 Rate Blood Pressure Blood Pressure 122/91 H 137/94 H 146/101 H [Right Brachial artery] O2 Saturation 94 97 97 02/11/18 02/11/18 11:34 12:00 Temperature 36.9 C Heart Rate [ 86 Monitoring electrodes] Respiratory 25 H Rate Blood Pressure 158/111 H Blood Pressure 168/113 H [Right Brachial artery] O2 Saturation 96 Oxygen O2 Source Room air I&O (Last 24 Hrs): Intake and Output Totals x24h 02/09/18 02/10/18 02/11/18 23:59 23:59 23:59 Intake Total 2665.500 2319.406 955.178 Output Total 2700 1325 350 Balance -34.500 994.406 605.178 General: Alert, No acute distress HEENT: Mucous membr. moist/pink Neck: Supple Neuro: Non Focal Cardiovascular: Regular rate Respiratory: No respiratory distress Abdomen: Normal bowel sounds, No tenderness, Other (Slightly more distended) Extremities: No edema - Results Results: Laboratory Results WBC 10.6 x10^3/uL (4.8-10.8) 02/11/18 04:05 RBC 3.90 10^6/uL (4.20-5.40) L 02/11/18 04:05 Hgb 11.0 g/dL (12.0-16.0) L 02/11/18 04:05 Hct 33.2 % (37.0-47.0) L 02/11/18 04:05 MCV 85.0 fL (81.0-99.0) 02/11/18 04:05 MCH 28.3 pg (27.0-31.0) 02/11/18 04:05 MCHC 33.3 g/dL (32.0-36.0) 02/11/18 04:05 RDW 17.3 % (12.0-15.0) H 02/11/18 04:05 Plt Count 290 10^3/uL (130-450) 02/11/18 04:05 MPV 8.6 fL (7.9-10.8) 02/11/18 04:05 Neut # 6.8 10^3/uL (1.5-6.6) H 02/11/18 04:05 Lymph # 2.7 10^3/uL (1.5-3.5) 02/11/18 04:05 [place] # 1.0 10^3/uL (0.0-1.0) 02/11/18 04:05 Eos # 0.1 10^3/uL (0.0-0.7) 02/11/18 04:05 Baso # 0.1 10^3/uL (0.0-0.1) 02/11/18 04:05 Absolute Nucleated RBC 0.00 x10^3/uL 02/11/18 04:05 Nucleated RBC % 0.0 /100WBC 02/11/18 04:05 Sodium 133 mmol/L (135-145) L 02/10/18 05:23 Potassium 3.8 mmol/L (3.5-5.0) 02/10/18 05:23 Chloride 96 mmol/L (101-111) L 02/10/18 05:23 Carbon Dioxide 25 mmol/L (21-32) 02/10/18 05:23 Anion Gap 12.0 (6-13) 02/10/18 05:23 BUN 22 mg/dL (6-20) H 02/10/18 05:23 Creatinine 0.7 mg/dL (0.4-1.0) 02/10/18 05:23 Estimated GFR (MDRD) 84 (>89) L 02/10/18 05:23 Glucose 112 mg/dL (70-100) H 02/10/18 05:23 POC Whole Bld Glucose 153 mg/dL (70 - 100) H 02/08/18 21:29 Glycated Hemoglobin 5.6 % (4.6-6.2) 02/09/18 11:19 Estim Average Glucose 114 (70-100) H 02/09/18 11:19 Lactic Acid 0.9 mmol/L (0.5-2.2) 02/09/18 22:00 Calcium 8.7 mg/dL (8.5-10.3) 02/10/18 05:23 Magnesium 1.6 mg/dL (1.7-2.8) L 02/09/18 10:58 Total Bilirubin 1.1 mg/dL (0.2-1.0) H 02/10/18 05:23 AST 20 IU/L (10-42) 02/10/18 05:23 ALT 14 IU/L (10-60) 02/10/18 05:23 Alkaline Phosphatase 61 IU/L (42-121) 02/10/18 05:23 Troponin I 0.23 ng/mL (<0.49) 02/09/18 22:00 B-Natriuretic Peptide 992 pg/mL (5-100) H 02/09/18 10:58 Total Protein 6.7 g/dL (6.7-8.2) 02/10/18 05:23 Albumin 3.5 g/dL (3.2-5.5) 02/10/18 05:23 Globulin 3.2 g/dL (2.1-4.2) 02/10/18 05:23 Albumin/Globulin Ratio 1.1 (1.0-2.2) 02/10/18 05:23 TSH 2.02 uIU/mL (0.34-5.60) 02/09/18 10:58 - Procedures Procedures: Procedures BYPASS DESCENDING COLON TO CUTANEOUS, OPEN APPROACH (09/03/17) EXCISION OF ASCENDING COLON, OPEN APPROACH (09/03/17) EXCISION OF ILEUM, OPEN APPROACH (09/03/17) INSERTION OF INFUSION DEV INTO SUP VENA CAVA, PERC APPROACH (09/03/17) INTRODUCTION OF NUTRITIONAL INTO CENTRAL VEIN, PERC APPROACH (09/03/17) RESECTION OF SIGMOID COLON, OPEN APPROACH (09/03/17) RESPIRATORY VENTILATION, GREATER THAN 96 CONSECUTIVE HOURS (09/03/17) TRANSFUSE NONAUT RED BLOOD CELLS IN CENTRAL VEIN, PERC (09/03/17) ABX Reporting Has patient been on IV antibiotics over the past 48 hours?: Yes
--- NOTE | 2018-02-11 15:22 | PROVIDER PROGRESS NOTE ---
Subjective - General Admit Date: 02/05/18 Procedure Date: 02/05/18 Post Op Days: 6 Procedure Performed: SILS colostomy takedown - Review of Systems Wound/Incisions: positive: Healing well General: positive: No symptoms, Other (Patient had a bowel movement today. Minimal appetite.) HEENT: positive: No symptoms Pulmonary: positive: No symptoms Cardiovascular: positive: No symptoms Gastrointestinal: positive: Nausea (Present but improved.) Genitourinary: positive: No symptoms Musculoskeletal: positive: No symptoms Skin: positive: No symptoms Psychiatric: positive: No symptoms All Other Systems: positive: Reviewed and negative Objective - Patient Data Reviewed Vital Signs: Yes Vital Signs: Vital Signs x48h Temp Pulse Resp BP BP Pulse Ox 02/11/18 14:00 75 22 150/104 H 96 02/11/18 13:00 81 20 138/99 H 95 02/11/18 12:00 36.9 C 86 25 H 168/113 H 96 02/11/18 11:34 158/111 H 02/11/18 11:00 107 H 23 146/101 H 97 02/11/18 10:00 96 20 137/94 H 97 02/11/18 09:00 36.8 C 119 H 19 122/91 H 94 02/11/18 08:00 103 H 25 H 110/84 H 96 Intake & Output: Intake and Output Totals x24h 02/09/18 02/10/18 02/11/18 23:59 23:59 23:59 Intake Total 2665.500 2319.739 1556.011 Output Total 2700 1325 350 Balance -34.500 158.278 2080.011 - Lab Results Lab Results: 02/11/18 04:05 02/10/18 05:23 Other Lab Results: Lab Results x24hrs 02/11/18 Range/Units 04:05 WBC 10.6 (4.8-10.8) x10^3/uL RBC 3.90 L (4.20-5.40) 10^6/uL Hgb 11.0 L (12.0-16.0) g/dL Hct 33.2 L (37.0-47.0) % MCV 85.0 (81.0-99.0) fL MCH 28.3 (27.0-31.0) pg MCHC 33.3 (32.0-36.0) g/dL RDW 17.3 H (12.0-15.0) % Plt Count 290 (130-450) 10^3/uL MPV 8.6 (7.9-10.8) fL Neut # 6.8 H (1.5-6.6) 10^3/uL Lymph # 2.7 (1.5-3.5) 10^3/uL [place] # 1.0 (0.0-1.0) 10^3/uL Eos # 0.1 (0.0-0.7) 10^3/uL Baso # 0.1 (0.0-0.1) 10^3/uL Absolute Nucleated RBC 0.00 x10^3/uL Nucleated RBC % 0.0 /100WBC - Current Medications Current Medications: Current Medications Generic Name Dose Route Start Last Admin Trade Name Freq PRN Reason Stop Dose Admin Acetaminophen 500 mg 02/11/18 12:00 02/11/18 11:33 Tylenol PO 500 mg Q6HR AMNA Administration Clonidine HCl 1 patch 02/11/18 11:00 02/11/18 11:35 [id number] TOP 1 patch Q7D AMNA Administration Hydromorphone HCl 0.5 mg 02/09/18 08:51 02/11/18 03:58 Dilaudid Inj Syringe IVP 0.5 mg Q2H PRN Administration Abdominal Pain/moderate Promethazine HCl 12.5 mg/ 50.5 mls @ 100 mls/hr 02/09/18 09:38 02/09/18 11:11 Sodium Chloride IV Infused Q6H PRN Infusion Nausea / Vomiting Ertapenem 1 gm/ Sodium 100 mls @ 200 mls/hr 02/11/18 11:00 02/11/18 12:26 Chloride IV Infused 1100 AMNA Infusion Metronidazole 500 mg in 100 mls @ 100 mls/hr 02/10/18 21:00 02/11/18 13:51 Flagyl 500 Mg/100 Ml IV 100 mls/hr Q8H AMNA Administration Losartan Potassium 100 mg 02/11/18 11:15 02/11/18 11:34 Cozaar PO 100 mg DAILY AMNA Administration Metoprolol Tartrate 100 mg 02/11/18 11:15 02/11/18 11:34 Lopressor PO 100 mg BID AMNA Administration Ondansetron HCl 4 mg 02/05/18 12:08 02/09/18 05:39 Zofran Inj IVP 4 mg Q6H PRN Administration Nausea / Vomiting Oxycodone HCl 5 mg 02/11/18 09:15 02/11/18 11:33 Roxicodone PO 5 mg Q4HR PRN Administration PAIN Prochlorperazine Maleate 25 mg 02/09/18 14:00 02/10/18 12:48 Compazine Supp [place] 25 mg TID PRN Administration Nausea / Vomiting Sodium Chloride 10 ml 02/05/18 17:00 02/11/18 09:05 Normal Saline Flush 0.9% IVP 20 ml 0100,0900,1700 AMNA Administration Sodium Chloride 10 ml 02/05/18 12:08 02/10/18 11:23 Normal Saline Flush 0.9% IVP 10 ml PRN PRN Administration NEEDED PER PROVIDER ORDERS - Physical Exam Wound/Incisions: positive: Healing well General Appearance: positive: No acute distress Eyes Bilateral: positive: No lid inflammation, Conjunctivae nml, No scleral icterus Neck: positive: Trachea midline Respiratory: positive: Chest non-tender, Breath sounds nml Cardiovascular: positive: Regular rate & rhythm, Systolic murmur (Loud systolic ejection murmur.) Abdomen: positive: Non-tender, Nml bowel sounds Skin: positive: Color nml Extremities: positive: Non-tender, Nml appearance Neurologic/Psychiatric: positive: Oriented x3 ABX Reporting Has patient been on IV antibiotics over the past 48 hours?: Yes Impression/Plan - Problem List Problem List: D6 s/p SILS colostomy takedown. The CTA of the abdomen and pelvis do not show any hemodynamically important involvement of the renal arteries (or the aorta, celiac, SMA or GIAN for that matter). There is also no indication of infection or abscess. Switch to oral antibiotics for short course and off. I restarted the patient's oral antihypertensive medications. I restarted a general diet. I have instructed nursing to MINIMIZE opiate use and INCREASE activity in an effort to discharge patient. To be very clear - hypertension can be worked up and treated as an outpatient issue. There is no reason for continued ICU admission.
[2018-02-11] MEDS ORDERED: HYDROmorphone 2 MG/ML VIAL IVP PRN (15:35)
[2018-02-11] MEDS ORDERED: HYDROmorphone 1 MG/ML SYRINGE IVP PRN (15:40)
[2018-02-11] MEDS: levoFLOXacin 250 MG TABLET PO SCH (17:11)
[2018-02-11] MEDS: metroNIDAZOLE 250 MG TABLET PO SCH (21:46)
[2018-02-11] MEDS: PROMETHAZINE INJ 12.5 MG in SODIUM CHLORIDE 0.9% 50 ML IV PRN (21:58)
[2018-02-12] MEDS: ACETAMINOPHEN 500 MG TABLET PO SCH ×4 (00:15→17:54)
[2018-02-12] MEDS: SODIUM CHLORIDE FLUSH 0.9% 10 ML SYRINGE IVP PRN ×3 (00:15→06:02)
[2018-02-12] MEDS: ONDANSETRON 4 MG/2 ML VIAL IVP PRN (04:04)
[2018-02-12] MEDS: metroNIDAZOLE 250 MG TABLET PO SCH ×3 (05:35→21:25)
[2018-02-12] MEDS ORDERED: hydrALAZINE INJ 20 MG/ML VIAL IVP ONE (05:46)
[2018-02-12 06:22] LABS: CALCIUM 8.5 mg/dL (8.5-10.3); CREATININE 0.6 mg/dL (0.4-1.0)
[2018-02-12] MEDS: levoFLOXacin 250 MG TABLET PO SCH (10:14)
[2018-02-12] MEDS: SODIUM CHLORIDE FLUSH 0.9% 10 ML SYRINGE IVP SCH ×2 (10:17→16:12)
[2018-02-12] MEDS: METOPROLOL TARTRATE 50 MG TABLET PO SCH ×2 (12:38→21:26)
[2018-02-12] MEDS: LOSARTAN 50 MG TABLET PO SCH (12:38)
[2018-02-12] MEDS: oxyCODONE 5 MG TABLET PO PRN ×2 (16:12→21:26)
[2018-02-13] MEDS: SODIUM CHLORIDE FLUSH 0.9% 10 ML SYRINGE IVP SCH ×2 (00:03→08:36)
[2018-02-13] MEDS: ACETAMINOPHEN 500 MG TABLET PO SCH ×2 (00:03→05:44)
[2018-02-13] MEDS: SODIUM CHLORIDE FLUSH 0.9% 10 ML SYRINGE IVP PRN (00:03)
[2018-02-13] MEDS: metroNIDAZOLE 250 MG TABLET PO SCH (05:45)
[2018-02-13 06:05] LABS: CALCIUM 8.5 mg/dL (8.5-10.3); CREATININE 0.7 mg/dL (0.4-1.0)
[2018-02-13] MEDS: LOSARTAN 50 MG TABLET PO SCH (08:35)
[2018-02-13] MEDS: METOPROLOL TARTRATE 50 MG TABLET PO SCH (08:35)
[2018-02-13] MEDS: levoFLOXacin 250 MG TABLET PO SCH (08:35)
[2018-02-13 08:36] VITALS: BP 127/96
--- NOTE | 2018-02-13 08:52 | DISCHARGE SUMMARY ---
"Discharge Summary Admit Date: 02/05/18 Discharge Date: 02/13/18 Discharging Provider: Betty Code Status: Attempt Resuscitation Condition at Discharge: Good Discharge Disposition: 01 Home, Self Care Discharge Facility Name: [facility] - DIAGNOSES Admission Diagnoses: Colostomy Discharge Diagnoses with Status of Each Condition: Colostomy was reversed on 02-05-18 Hypertension no longer appears to be an issue. - HPI History of Present Illness: 62 year old female with colostomy presented for colostomy reversal on 02-05. Surgery was uneventful. Patient had an epidural for pain control that was weorking well. When epidural out had increased pain and increased blood pressure. This resulted in a hospitalist consult and ICU transfer. Workup was negative and with increased pain control came decreased blood pressure. Patient now eating general diet, ambulating and pain well controlled. - CONSULTS | PROCEDURES Consultations: Hospitlaist for blood pressure Procedures: 02-05-18 SILS colostomy takedown by me. - ALLERGIES Allergies/Adverse Reactions: Allergies Allergy/AdvReac Type Severity Reaction Status Date / Time Penicillins Allergy Unknown Verified 01/16/18 13:43 - MEDICATIONS Home Medications: Ambulatory Orders Medication Instructions Recorded Confirmed Cyclobenzaprine [Flexeril] 5 mg PO PRN PRN 06/19/17 02/05/18 Losartan [Cozaar] 100 mg PO DAILY 06/19/17 02/05/18 Metoprolol Tartrate [Lopressor] 100 mg PO BID #60 tablet 09/17/17 02/05/18 Multivitamin W/Minerals [Theragran 1 tab PO DAILYWM tablet 09/17/17 01/16/18 M] Home Medications Other | Comments: [place] 5/325 mg tab PRN and Colace daily - PHYSICAL EXAM AT DISCHARGE General Appearance: positive: No acute distress (Sleepy.) Eyes Bilateral: positive: No lid inflammation, Conjunctivae nml, No scleral icterus ENT: positive: No signs of dehydration Neck: positive: Trachea midline Respiratory: positive: Chest non-tender, No respiratory distress, Breath sounds nml Cardiovascular: positive: Systolic murmur Abdomen: positive: Non-tender, Nml bowel sounds, Other (Sandra in place without any erythema or drainage.) Skin: positive: Color nml Extremities: positive: Non-tender, Nml appearance Neurologic/Psychiatric: positive: Oriented x3 - LABS Result Diagrams: 02/11/18 04:05 02/13/18 05:45 - FOLLOW UP Follow Up: [facility] in 7-10 days - TIME SPENT Time Spent in Discharge (Minutes): 40"
--- NOTE | 2018-02-13 08:57 | Discharge Plan ---
Discharge Plan Disposition: Home, Self Care Condition: Good Prescriptions: oxyCODONE [Roxicodone] 5 mg PO Q4HR PRN #20 tablet PRN Reason: Pain levoFLOXacin [Levaquin] 500 mg PO DAILY #7 tablet metroNIDAZOLE [Flagyl] 250 mg PO Q8H #21 tablet Diet: Regular Activity Restrictions: No lifting >15 pounds x 6 weeks Shower Restrictions: No Driving Restrictions: No Weight Bearing: Full Weight Instruction Topics: Metoprolol injection, Diltiazem injection No Smoking: If you smoke, Please STOP! Call for help. Follow-up with: Sasha Wilcox ARNP [Primary Care Provider] - Wilbert Hernández MD [Provider Admit Priv/Credential] -
[2018-02-13] MEDS ORDERED: HYDROmorphone 1 MG/ML CARPUJECT IVP PRN (12:05)
== END 2018-02-13 13:10 | disposition home or self-care (01) | DRG 330 ==
LOC: MS2 02-05 07:06 → ICU 02-10 09:07 → MS2 02-12 11:06
PROVIDERS: ADMIT Surgery; ATTEND Specialist
PROC: 0DQN4ZZ Repair Sigmoid Colon, Percutaneous Endoscopic Approach (ICD-10-PCS; principal; 2018-02-05 08:30)
DX: Z43.3 Encounter for attention to colostomy (principal); K56.7 Ileus, unspecified; I42.1 Obstructive hypertrophic cardiomyopathy; I10 Essential (primary) hypertension; Z87.891 Personal history of nicotine dependence; Z90.49 Acquired absence of other specified parts of digestive tract; E78.00 Pure hypercholesterolemia, unspecified; R00.0 Tachycardia, unspecified; R01.1 Cardiac murmur, unspecified; I95.9 Hypotension, unspecified
CPT/HCPCS: 36415; 71045; 71275; 74022; 74174; 80048; 80053; 83036; 83605; 83735; 83880; 84443; 84484; 85025; 87040; 87150; 93005; 93306

== ENCOUNTER 2018-03-29 08:00 | Inpatient (IN) | payer MEDICARE, MEDICAID ==
[2018-03-29] MEDS ORDERED: METOPROLOL 5 MG/5 ML VIAL IVP STA ×5 (08:37→18:58)
[2018-03-29] MEDS ORDERED: ONDANSETRON 4 MG/2 ML VIAL IVP STA (08:37)
[2018-03-29] MEDS ORDERED: MORPHINE 2 MG/ML SYRINGE IVP STA ×2 (08:37→12:40)
--- NOTE | 2018-03-29 08:43 | ED Physician Documentation ---
History of Present Illness - Stated complaint Stated Complaint: NAUSEA/ABD PX - Chief complaint Chief Complaint: Abd Pain - Additonal information Additional information: hx from pt 62 female hx HTN had a colon perf with peritonitis Aug [address] Hernández had colostomy reversed January 2018 post op course was complicated by severe HTN requiring ICU care pt to ED today with diffuse abd pain NV no BM since yesterday and aug BM prior to that she at a salad prior to onset of sx last night, but is was fresh and she does not think this is food poisoning she was unable to take BP meds today at triage BP is wildly out of control pt denies CP SOA Review of Systems Constitutional: denies: Fever Cardiac: denies: Chest pain / pressure Respiratory: denies: Dyspnea GI: reports: Abdominal Pain, Nausea, Vomiting. 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 : None HEENT: None Psych: None Musculoskeletal: None Derm: None - Past Surgical History Past Surgical History: No General: Bowel surgery, Gastric surgery, Other - Present Medications Home Medications: Ambulatory Orders Medication Instructions Recorded Confirmed Cyclobenzaprine [Flexeril] 5 mg PO PRN PRN 06/19/17 02/05/18 Losartan [Cozaar] 100 mg PO DAILY 06/19/17 02/05/18 Metoprolol Tartrate [Lopressor] 100 mg PO BID #60 tablet 09/17/17 02/05/18 Multivitamin W/Minerals [Theragran 1 tab PO DAILYWM tablet 09/17/17 01/16/18 M] - Allergies Allergies/Adverse Reactions: Allergies Allergy/AdvReac Type Severity Reaction Status Date / Time Penicillins Allergy Unknown Verified 01/16/18 13:43 - Social History Does the pt smoke?: No Smoking Status: Never smoker Does the pt drink ETOH?: No Does the pt have substance abuse?: No - Immunizations Immunizations are current?: Yes - POLST Patient has POLST: No POLST Status: Full Code PD ED PE NORMAL - Vitals Vital signs reviewed: Yes - Neck Neck: Supple, no meningeal sign - Cardiac Cardiac: RRR. No: No murmur (+ RUSB sys murmur not new per pt) - Respiratory Respiratory: No respiratory distress, Clear bilaterally - Abdomen Abdomen: Other (+ BS, multiple surgical scars, diffuse TTP with some guarding, no hernia appreciated) - Derm Derm: Normal color - Extremities Extremities: No deformity - Neuro Neuro: Alert and oriented X 3 Results - Vitals Vitals: Vital Signs - 24 hr 03/29/18 03/29/18 03/29/18 08:12 09:05 09:11 Temperature 36.5 C Heart Rate 83 72 71 Respiratory 16 16 16 Rate Blood Pressure 174/137 H 187/124 H 182/127 H O2 Saturation 99 98 100 03/29/18 03/29/18 03/29/18 09:33 10:00 10:16 Temperature Heart Rate 65 67 67 Respiratory 18 16 19 Rate Blood Pressure 172/107 H 193/118 H 212/103 H O2 Saturation 96 99 98 03/29/18 03/29/18 03/29/18 11:19 11:34 12:55 Temperature Heart Rate 68 70 76 Respiratory 18 11 L 16 Rate Blood Pressure 180/107 H 204/128 H 157/130 H O2 Saturation 98 97 97 03/29/18 03/29/18 03/29/18 13:01 13:06 13:11 Temperature Heart Rate 77 73 75 Respiratory 14 14 14 Rate Blood Pressure 199/124 H 207/123 H 206/124 H O2 Saturation 99 99 98 03/29/18 03/29/18 03/29/18 13:20 15:34 16:30 Temperature Heart Rate 73 75 74 Respiratory 12 15 16 Rate Blood Pressure 195/125 H 163/106 H 177/114 H O2 Saturation 98 95 97 03/29/18 03/29/18 03/29/18 18:40 18:47 19:35 Temperature Heart Rate 80 75 74 Respiratory 16 19 15 Rate Blood Pressure 179/131 H 189/118 H 181/113 H O2 Saturation 97 96 96 03/29/18 20:00 Temperature Heart Rate 75 Respiratory 15 Rate Blood Pressure 214/126 H O2 Saturation 97 Oxygen O2 Source Room air - EKG (time done) 0853 Rate: Rate (enter#) (72) Rhythm: NSR Intervals: Normal HI Ischemia: ST elevation c/w repol (concave up ST elev V2 V3 similar to prior, Q wave III and small Q waves I AVF, TWI V1, similar to January 2018 but without peaked T waves and had flat T V1 then). No: Normal ST segments - Labs Labs: Laboratory Tests 03/29/18 03/29/18 03/29/18 08:51 08:51 08:51 WBC 8.8 RBC 4.98 Hgb 14.1 Hct 43.0 MCV 86.3 MCH 28.3 MCHC 32.8 RDW 15.1 H Plt Count 280 MPV 9.2 Neut # (Auto) 5.6 Lymph # (Auto) 2.4 [place] # (Auto) 0.6 Eos # (Auto) 0.1 Baso # (Auto) 0.1 Absolute Nucleated RBC 0.00 Nucleated RBC % 0.0 Sodium 136 Potassium 4.7 Chloride 97 L Carbon Dioxide 29 Anion Gap 10.0 BUN 12 Creatinine 1.0 Estimated GFR (MDRD) 56 L Glucose 135 H Lactic Acid Calcium 10.2 Troponin I < 0.04 Urine Color Urine Clarity Urine pH Ur Specific [place] Urine Protein Urine Glucose (UA) Urine Ketones Urine Occult Blood Urine Nitrite Urine Bilirubin Urine Urobilinogen Ur Leukocyte Esterase Ur Microscopic Review Urine Culture Comments 03/29/18 03/29/18 11:21 13:43 WBC RBC Hgb Hct MCV MCH MCHC RDW Plt Count MPV Neut # (Auto) Lymph # (Auto) [place] # (Auto) Eos # (Auto) Baso # (Auto) Absolute Nucleated RBC Nucleated RBC % Sodium Potassium Chloride Carbon Dioxide Anion Gap BUN Creatinine Estimated GFR (MDRD) Glucose Lactic Acid 0.7 Calcium Troponin I Urine Color YELLOW Urine Clarity CLEAR Urine pH 7.0 Ur Specific [place] 1.010 Urine Protein NEGATIVE Urine Glucose (UA) NEGATIVE Urine Ketones 15 H Urine Occult Blood NEGATIVE Urine Nitrite NEGATIVE Urine Bilirubin NEGATIVE Urine Urobilinogen 0.2 (NORMAL) Ur Leukocyte Esterase NEGATIVE Ur Microscopic Review NOT INDICATED Urine Culture Comments NOT INDICATED - Rads (name of study) CT Radiology: See rad report (s/p colostomy take down with psot surg changed, multiple loops fluid and air filled small bowel with no distinct transition poitn, could be ileus or SBO, consider small bowel seris) CTA AP Radiology: Other PD MEDICAL DECISION MAKING - ED course ED course: reviewed prior records pt had 2 stage surgery in Dec first was emergent for hypotensive critically septic pt and necrotic bowel was resected, feculent material was irrigated from peritoneal cavity, and pt was too unstable to complete all of the surgery so was packed open and returned to OR next day to complete colostomy pt had work up for acute severe hypertensive crisis when admitted in January for reversal of colostomy CTA ruled out renal artery stenosis and pheo - and also showed mild atherosclerosis of abd aorta with no aneurysm or dissection and widely patent SMA GIAN and celiac echo showed aortic stenosis (not new) so hospitalist rec avoiding afterload reducers and volume depletion echo also showed no thrombus she had a + trop felt due to demand ischemia but no wall motion abd were appreciated she was stabilized and resumed her oral meds metoprolol and losartan possible recurrent SBO based on non con CT rad rec small bowel series which takes 12 + hr and not approp for ER work up will consult surgery to place pt in obs for this study called surgeon at [address] Darron Vargas at noon prior op note indicated necrotic bowel so surgeon is concerned pt may have mesenteric ischemia as cause of her pain I suggested getting another CTA but surgeon Dr Vargas and rads Dr Harper feel pt needs conventional angiogram not available at [facility] and that pt should be transferred so cancelled CTA AP ordered at 1239 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: [facility], [facility] are full so we called [facility] and they are full as well then called [facility], explained case and concern for mesenteric ischemia, transfer center rec speak with surgery surgeon is in OR but will call back since mesenteric ischmeia is a concern and transfer will clearly take a long time to achieve, started heparin and broad spectrum antibiotics, also pt NPO and stared maintenance fluids, pain controlled with morphine and have lopressor IV PRN HTN [facility] surgeon was in surgery but called me back after - he advises I speak to vascular so I spoke to vascular at [facility] Dr Chaudhary who advises that the test he would get at [facility] would be a CTA not conventional angio - states at [facility] he would get CTA and if neg ischemia ruled out and if + then would need vascular / transfer so vascular surgeon at [facility] rec we get the CTA at [facility] and if abn call him back else consider mesenteric ischemia ruled out and can continue with original plan CTA AP reordered at 1622 - read at 1843 - no acute vascular process - as before dilated small bowel on left spoke to [facility] Dr Darron Vargas again who advises to admit to hospitalist, NPO, control BP, 2 view abd in AM 1849 - will speak to night hospitalist pt was very clear with me that she would not want more surgery or another colectomy, states she is DNR, antibiotics would be OK, bit no CPR, no intubation , no surgery again etc - states she has a POLST and it was here during her last admit - but I do not see it scanned in just her advanced directive - Sepsis Event Vital Signs: Vital Signs - 24 hr 03/29/18 03/29/18 03/29/18 08:12 09:05 09:11 Temperature 36.5 C Heart Rate 83 72 71 Respiratory 16 16 16 Rate Blood Pressure 174/137 H 187/124 H 182/127 H O2 Saturation 99 98 100 03/29/18 03/29/18 03/29/18 09:33 10:00 10:16 Temperature Heart Rate 65 67 67 Respiratory 18 16 19 Rate Blood Pressure 172/107 H 193/118 H 212/103 H O2 Saturation 96 99 98 03/29/18 03/29/18 03/29/18 11:19 11:34 12:55 Temperature Heart Rate 68 70 76 Respiratory 18 11 L 16 Rate Blood Pressure 180/107 H 204/128 H 157/130 H O2 Saturation 98 97 97 03/29/18 03/29/18 03/29/18 13:01 13:06 13:11 Temperature Heart Rate 77 73 75 Respiratory 14 14 14 Rate Blood Pressure 199/124 H 207/123 H 206/124 H O2 Saturation 99 99 98 03/29/18 03/29/18 03/29/18 13:20 15:34 16:30 Temperature Heart Rate 73 75 74 Respiratory 12 15 16 Rate Blood Pressure 195/125 H 163/106 H 177/114 H O2 Saturation 98 95 97 03/29/18 03/29/18 03/29/18 18:40 18:47 19:35 Temperature Heart Rate 80 75 74 Respiratory 16 19 15 Rate Blood Pressure 179/131 H 189/118 H 181/113 H O2 Saturation 97 96 96 03/29/18 20:00 Temperature Heart Rate 75 Respiratory 15 Rate Blood Pressure 214/126 H O2 Saturation 97 Oxygen O2 Source Room air Departure - Departure Disposition: ED Place in Observation Clinical Impression: Abdominal pain Qualifiers: Abdominal location: generalized Qualified Code(s): R10.84 - Generalized abdominal pain Hypertension Qualifiers: Hypertension type: unspecified Qualified Code(s): I10 - Essential (primary) hypertension
[2018-03-29 08:58] LABS: BASOPHILS # (AUTO) 0.1 10^3/uL (0.0-0.1); EOSINOPHILS # (AUTO) 0.1 10^3/uL (0.0-0.7); HGB - HEMOGLOBIN 14.1 g/dL (12.0-16.0); LYMPHOCYTES # (AUTO) 2.4 10^3/uL (1.5-3.5); LYMPHOCYTES % (AUTO) 27.9 %; MEAN CORPUSCULAR HEMOGLOBIN 28.3 pg (27.0-31.0); MEAN CORPUSCULAR HGB CONC 32.8 g/dL (32.0-36.0); MEAN CORPUSCULAR VOLUME 86.3 fL (81.0-99.0); MEAN PLATELET VOLUME 9.2 fL (7.9-10.8); MONOCYTES # (AUTO) 0.6 10^3/uL (0.0-1.0); MONOCYTES % (AUTO) 6.5 %; NEUTROPHILS # (AUTO) 5.6 10^3/uL (1.5-6.6); NEUTROPHILS % (AUTO) 63.6 %; PLT - PLATELET COUNT 280 10^3/uL (130-450); RED BLOOD COUNT 4.98 10^6/uL (4.20-5.40); RED CELL DISTRIBUTION WIDTH 15.1 % (12.0-15.0); WHITE BLOOD COUNT 8.8 x10^3/uL (4.8-10.8)
[2018-03-29] MEDS ORDERED: SODIUM CHLORIDE 0.9% 1,000 ML IV ONE ×2 (09:24→15:07)
[2018-03-29 09:35] LABS: CALCIUM 10.2 mg/dL (8.5-10.3)
--- NOTE | 2018-03-29 11:02 | CT Report ---
Procedure Date: 03/29/2018 Accession Number: [id number] / [id number] Procedure: CT - Abdomen/Pelvis W/O CPT Code: FULL RESULT: EXAM: CT ABDOMEN AND PELVIS EXAM DATE: 03/29/2018 09:59 AM. CLINICAL HISTORY: Hx perf with colostomy 09/16 take down 02/15. COMPARISONS: None. TECHNIQUE: Routine helical CT imaging was performed through the abdomen and pelvis. IV contrast: None. Enteric contrast: No. Reconstructions: Coronal and sagittal. In accordance with CT protocol optimization, one or more of the following dose reduction techniques were utilized for this exam: automated exposure control, adjustment of mA and/or KV based on patient size, or use of iterative reconstructive technique. FINDINGS: Lung Bases: Unremarkable. Liver: Normal. No masses. Gallbladder/Bile Ducts: Unremarkable. Spleen: Normal. Pancreas: Normal. Adrenal Glands: Normal. 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 No hydronephrosis or renal calculus. Peritoneal Cavity/Bowel: Postsurgical changes status post colostomy takedown with dilated loops of small bowel in the left abdomen with no transition point identified.. No free air-fluid in the abdomen or. No masses or acute inflammatory process. The appendix is not visualized. Pelvic Organs: Normal. The bladder and visualized pelvic organs are within normal limits. Vasculature: No aneurysms or other significant abnormality. Bones: No significant abnormality. Other: None. IMPRESSION: 1. Status post colostomy takedown with postsurgical changes in the abdomen and pelvis. 2. Multiple loops of fluid and air-filled dilated small bowel with no transition point identified. There is stool in the colon. Findings can BE seen in the setting of ileus or partial small bowel obstruction. A Gastrografin small bowel series challenge may be of benefit to further characterize this finding. [facility]
[2018-03-29 11:27] LABS: BILIRUBIN,URINE NEGATIVE (NEGATIVE); GLUCOSE, URINE (UA) NEGATIVE (NEGATIVE); KETONES,URINE (UA) 15 mg/dL (NEGATIVE); LEUKOCYTE ESTERASE, URINE NEGATIVE (NEGATIVE); NITRITE,URINE NEGATIVE (NEGATIVE); OCCULT BLOOD,URINE NEGATIVE (NEGATIVE); PROTEIN,URINE NEGATIVE (NEGATIVE); UROBILINOGEN,URINE 0.2 (NORMAL) E.U./dL (NORMAL)
[2018-03-29 11:31] LABS: CLARITY,URINE CLEAR (CLEAR)
[2018-03-29] MEDS ORDERED: ONDANSETRON 4 MG/2 ML VIAL ONE ×2 (12:50→20:03)
[2018-03-29] MEDS ORDERED: ERTAPENEM 1 GM in SODIUM CHLORIDE 0.9% MINIBAG 100 ML IV STA (13:16)
[2018-03-29] MEDS ORDERED: HEPARIN 25000UNITS/500ML (D5W) 25,000 UNIT/500 ML BAG IV SCH (14:00)
--- NOTE | 2018-03-29 15:17 | CONSULTATION NOTE ---
Referring Provider Name of Referring Provider:: Dr. Arzola Consult Date: 03/29/18 Chief Complaint - Chief Complaint Chief Complaint: abd pain, N/V History of Present Illness - Admitted From Admitted From:: ER - History Obtained From Records Reviewed: yes History obtained from: pt, old records Exam Limitations: none - History of Present Illness HPI Comment/Other: 62 yo female who presents with 18 hr hx of abrupt onset of constant steady generalized abd pain associated with repeated N/V non bloody emesis, prompting an ER evaluation this morning. She has a hx of an acute abdomen last fall where necrotic terminal ileum and perforated sigmoid colon was resected in damage control fashion, with second look laparotomy the following day where ileo-right colonic anastomosis was performed along with end descending colostomy. Path showed evidence of ischemia/necrosis of the ileum and no evidence of diverticulitis in the resected sigmoid colon. She recovered and underwent colostomy closure in mid-January of this year, and did well until 10 days ago when she noted intermittent nausea and anorexia which resolved 3 days ago before current sx developed. She reports possible fever/chills last night, no melena, hematochezia, or diarrhea. Last bm was yesterday and firm. No recent wt changes. No use of tobacco, alcohol or recreational drugs. No hx cardiac disease , other thromboembolic disease, arrythmia, hypercoagulable state, HRT, recent hypotension, but has very labile HTN with markedly elevated b/p in the ER today. A CT angiogram last month to evaluate her HTN showed no major mesenteric arterial disease, including no evidence of renal artery, SMA or celiac axis stenosis or occlusion. A non contrast CT abd/pelvis today showed diffuse small bowel dilatation but no clear evidence of abnormal thickening of the bowel wall or mesentery, SBO, gallbladder disease, pneumoperitoneum, free fluid, abscess, or portal vein air or thrombosis. She continues to have severe abdominal pain temporarily relieved by parenteral narcotics. 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 She went to college for a short time, got , got , never got again, she has no children. 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 She previously lived in [place], [place] and [place]. She currently lives in [place], [place]. She lives alone. She does not smoke but did previously smoke cigarettes quit 10 years ago. She denies any illicit drug use. She states that she occasionally drinks a glass of wine. - Substance History Use: Uses substance without health or social issues: NONE - POLST Patient has POLST: No POLST Status: Full Code Meds/Allgy - Home Medications Home Medications: Ambulatory Orders Medication Instructions Recorded Confirmed Cyclobenzaprine [Flexeril] 5 mg PO PRN PRN 06/19/17 02/05/18 Losartan [Cozaar] 100 mg PO DAILY 06/19/17 02/05/18 Metoprolol Tartrate [Lopressor] 100 mg PO BID #60 tablet 09/17/17 02/05/18 Multivitamin W/Minerals [Theragran 1 tab PO DAILYWM tablet 09/17/17 01/16/18 M] - Allergies Allergies/Adverse Reactions: Allergies Allergy/AdvReac Type Severity Reaction Status Date / Time Penicillins Allergy Unknown Verified 01/16/18 13:43 Review of Systems - Constitutional Constitutional: reports: Fever, Chills. denies: Weight gain, Weight loss - Cardiovascular Cariovascular: denies: Irregular heart rate, Palpitations, Chest pain, Syncope - Respiratory Respiratory: denies: Cough, Sputum production, Wheezing - Gastrointestinal Gastrointestinal: reports: Abdominal pain (see hpi), Constipation, Nausea, Vomiting, Bloating. denies: Rectal bleeding, Black stools, Bloody stools, Domenic blood emesis, Coffee grounds emesis, Reflux/heartburn - Genitourinary Genitourinary: denies: Dysuria, Urgency - Hematologic/Lymphatic Hematologic/Lymphatic: denies: Bruising, Petechiae, Blood clots, Bleeding tendencies, Recurrent infections - All Other Systems All Other Systems: reports: Reviewed and negative Exam - Vital Signs Reviewed Vital Signs: Yes Vital Signs: Vital Signs x48h Temp Pulse Resp BP Pulse Ox 03/29/18 13:20 73 12 195/125 H 98 03/29/18 13:11 75 14 206/124 H 98 03/29/18 13:06 73 14 207/123 H 99 03/29/18 13:01 77 14 199/124 H 99 03/29/18 12:55 76 16 157/130 H 97 03/29/18 11:34 70 11 L 204/128 H 97 03/29/18 11:19 68 18 180/107 H 98 03/29/18 10:16 67 19 212/103 H 98 03/29/18 10:00 67 16 193/118 H 99 03/29/18 09:33 65 18 172/107 H 96 03/29/18 09:11 71 16 182/127 H 100 03/29/18 09:05 72 16 187/124 H 98 03/29/18 08:12 36.5 C 83 16 174/137 H 99 - Physical Exam General Appearance: positive: Severe distress, Anxious Eyes Bilateral: positive: Normal inspection, Conjunctivae nml, No scleral icterus ENT: positive: ENT inspection nml, Pharynx nml, No signs of dehydration Neck: positive: No JVD. negative: Lymphadenopathy (R), Lymphadenopathy (L) Respiratory: positive: Chest non-tender, No respiratory distress, Breath sounds nml. negative: Wheezes, Rales, Rhonchi Cardiovascular: positive: Regular rate & rhythm, No gallop, Systolic murmur Peripheral Pulses: positive: 2+ Abdomen: positive: Tenderness (minimal diffuse abd tenderness), Abnml bowel sounds (hypoactive). negative: Guarding, Rebound, Hepatomegaly, Splenomegaly, Mass Back: negative: CVA tenderness (R), CVA tenderness (L) Skin: positive: Color nml, No rash, Warm, Dry Extremities: positive: Nml appearance, No pedal edema. negative: Calf tenderness Neurologic/Psychiatric: positive: Oriented x3 Conclusion/Plan - Diagnosis Diagnosis: 1. Abdominal pain of unclear etiology. Given hx of prior episode of ischemic/infarcted small and large bowel, and pain out of proportion to abdominal findings, and no other obvious explanation for her sx, recurrent mesenteric ischemia is suspected. Also possible would be acute gastroenteritis, SBO (doubt at present). There is no evidence of bowel infarction clinically or radiographically at present. 2. Uncontrolled hypertension. Doubt related to problem #1. - Plan Plan: Discussed situation with Dr. Harper, our radiologist, who recommends conventional mesenteric angiography to evaluate for mesenteric ischemia and also to provide therapy if present, given lack of findings concerning for necrosis at present. Since this service is not available here, I recommend transfer to facility with this capability. I agree with empiric treatment with anticoagulation with heparin, and better control of her blood pressure pending transfer. - Lab Results Fish Bones: 03/29/18 08:51 03/29/18 08:51 Other Lab Results: lactic acid nl and troponin neg. UA neg except 4+ ketones. - Diagnostic Imaging Results Diagnostic Imaging Results: positive: Final report reviewed, Discussed with radiologist, See rad report, Read independently Diagnostic Imaging Results Comments: see HPI - EKG Results EKG Interpreted Independently: No EKG Findings: sinus tach.
[2018-03-29] MEDS ORDERED: IOPAMIDOL-300 100 ML VIAL ONE (16:51)
[2018-03-29] MEDS ORDERED: IOPAMIDOL-300 100 ML VIAL IVP ONE (18:01)
--- NOTE | 2018-03-29 18:42 | CT Report ---
Procedure Date: 03/29/2018 Accession Number: [id number] / [id number] Procedure: CT - Abdomen/Pelvis Angio CPT Code: FULL RESULT: EXAM: CT ANGIOGRAM ABDOMEN AND PELVIS WITH CONTRAST EXAM DATE: 03/29/2018 06:00 PM. CLINICAL HISTORY: Mesenteric ischemia COMPARISONS: 03/29/2018. TECHNIQUE: Routine helical CT angiogram imaging was performed through the abdomen and pelvis in the arterial phase. IV contrast: 100 cc Isovue-300. Enteric contrast: No. Reconstructions: Coronal, sagittal, and 3D MIP reconstructions. In accordance with CT protocol optimization, one or more of the following dose reduction techniques were utilized for this exam: automated exposure control, adjustment of mA and/or KV based on patient size, or use of iterative reconstructive technique. FINDINGS: Vasculature: There is no evidence of aortic dissection or aneurysm. There is thoracic aortic tortuosity. There are scattered atheromatous disease of the aorta. The celiac artery and its branches are patent. The visualized superior mesenteric artery is patent. The renal arteries are patent. The inferior mesenteric artery is patent. There is no evidence of iliac occlusion. Lung Bases: Normal. Abdominal Solid Organs: Arterial phase imaging of the solid abdominal organs demonstrates no acute abnormalities. Peritoneal Cavity: There is some mildly dilated left abdomen small bowel. There is decompressed small bowel within the right abdomen. No acute colonic abnormalities are seen. There is moderate stool within colon. Pelvic Organs: Normal. The bladder and visualized pelvic organs are within normal limits. Bones: No significant abnormality. Other: None. IMPRESSION: 1. There is no evidence of arterial occlusion or significant stenosis. 2. Mildly dilated left abdomen small bowel persists. 3. Arterial phase imaging of the solid abdominal organs demonstrates no acute abnormalities. 4. There is moderate stool within colon. [facility]
[2018-03-29] MEDS ORDERED: MORPHINE 2 MG/ML SYRINGE ONE (20:03)
[2018-03-29] MEDS ORDERED: METOPROLOL 5 MG/5 ML VIAL IVP ONE (20:03)
[2018-03-29] MEDS ORDERED: CYCLOBENZAPRINE 10 MG TABLET PO PRN (20:37)
[2018-03-29] MEDS ORDERED: PROMETHAZINE 25 MG/1 ML VIAL IM PRN (20:38)
[2018-03-29] MEDS ORDERED: ZOLPIDEM 5 MG TABLET PO PRN (20:38)
[2018-03-29] MEDS ORDERED: ACETAMINOPHEN 325 MG TABLET PO PRN (20:38)
[2018-03-29] MEDS: SODIUM CHLORIDE 0.9% 1,000 ML IV SCH (22:05)
[2018-03-29] MEDS: METOPROLOL TARTRATE 50 MG TABLET PO SCH (22:12)
[2018-03-29] MEDS: hydrALAZINE 25 MG TABLET PO SCH (22:22)
[2018-03-29] MEDS: NIFEdipine ER 30 MG TABLET PO SCH (22:22)
--- NOTE | 2018-03-29 23:41 | HISTORY & PHYSICAL EXAMINATION ---
Chief Complaint - Chief Complaint Chief Complaint: Abdominal pain History of Present Illness - Admitted From Admitted From:: Emergency department - History Obtained From Records Reviewed: Yes History obtained from: Patient and medical records Exam Limitations: None - History of Present Illness HPI Comment/Other: Patient is a 62-year-old female with a past medical history significant for hypertension and acute abdomen in August 2017 where necrotic terminal ileum and perforated sigmoid colon was resected in damage control fashion, with second look laparotomy the following day where ileo-right colonic anastomosis was performed along with and descending colostomy. Path showed evidence of ischemia/necrosis of the ileum and no evidence of diverticulitis in the resected sigmoid colon. She recovered and underwent colostomy closure in mid January 2018, and did well until 10 days ago when she noted intermittent nausea and anorexia which resolved 3 days ago. She states that over the last 2 days she has noticed that her bowel movements have slowed. She states that she did have a small bowel movement yesterday morning after she ate a salad. She states that last night around 7 PM she began having excruciating abdominal pain. She states it was a 10 out of 10, sharp and diffuse. She could not localize any area that was worse than another. She states that she then began vomiting and continued to be nauseated throughout the night. She states that she try to wait it out as she has an appointment with her surgeon scheduled next . She states this morning she continued to have the abdominal pain and it continued to be severe. She states that she has had 2 episodes of emesis today which is nonbloody. She states that she did feel some chills but no fever. She states this morning her sister came over and when she saw her she told her immediately to go to the emergency department. Patient denies any headaches, blurred vision, runny nose, sore throat, nasal congestion, difficulty swallowing, chest pain, shortness of air, orthopnea, PND , increased lower extremity swelling, diarrhea, urinary urgency, urinary frequency, dysuria, joint swelling, joint pain, muscle aches, back pain, neck stiffness, hair loss, skin rash, night sweats or any focal neurologic deficits On presentation to the emergency department the patient was afebrile and heart rate was within normal limits. She was however very hypertensive with a blood pressure of 174/137 which was persistently high the entire time she was in the emergency department. She was not in any respiratory distress. The patient underwent routine lab work which revealed no leukocytosis. The patient's electrolytes were all within normal limits aside from a mildly elevated glucose. Patient's lactic acid was 0.7 and her troponin was negative. Patient underwent a UA which did show ketones but was otherwise negative. The patient also underwent a CT of her abdomen and pelvis which showed multiple loops of fluid and air-filled dilated small bowel with no transition point identified. There was stool in the colon. These findings were concerning for ileus or partial small bowel obstruction and a Gastrografin small bowel series challenge was recommended. The emergency room physician spoke with the surgeon events solutions consultant Dr. Vargas who examined the patient in the emergency department and recommended transfer to a hospital capable of doing a conventional mesenteric angiography. He felt that the patient likely had recurrent mesenteric ischemia given that her pain was out of proportion to her examination. He thought it could also be acute gastroenteritis or small bowel obstruction but felt this was less likely. The emergency room physician then attempted to transfer the patient and called 7 different hospitals which were all full. She then finally [facility] which [facility] beds and spoke with the hospitalist on-call who referred her to the interventional radiologist. After she spoke with the interventional radiologist it was determined that the patient could get a CT angiogram of her abdomen pelvis and this would give as much information as a mesenteric angiogram. The CT undergone of the abdomen and pelvis could be done at our facility and therefore the test was ordered and it showed that there was no evidence of arterial occlusion or significant stenosis. It did show a mildly dilated left abdomen small bowel. The emergency room physician then requested that the hospitalist team place the patient in observation for partial small bowel obstruction. 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 She went to college for a short time, got , got , never got again, she has no children. 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 She previously lived in [place], [place]. She currently lives in [place], [place]. She lives alone. She does not smoke but did previously smoke cigarettes quit 10 years ago. She denies any illicit drug use. She states that she occasionally drinks a glass of wine. - Substance History Use: Uses substance without health or social issues: NONE - POLST Patient has POLST: No POLST Status: DNR Meds/Allgy - Home Medications Home Medications: Ambulatory Orders Medication Instructions Recorded Confirmed Cyclobenzaprine [Flexeril] 5 mg PO PRN PRN 06/19/17 02/05/18 Losartan [Cozaar] 100 mg PO DAILY 06/19/17 02/05/18 Metoprolol Tartrate [Lopressor] 100 mg PO BID #60 tablet 09/17/17 02/05/18 Multivitamin W/Minerals [Theragran 1 tab PO DAILYWM tablet 09/17/17 01/16/18 M] - Allergies Allergies/Adverse Reactions: Allergies Allergy/AdvReac Type Severity Reaction Status Date / Time Penicillins Allergy Unknown Verified 01/16/18 13:43 Review of Systems - Other Findings Other Findings: A comprehensive review of systems was performed the pertinent positives and negatives are stated above in the HPI and the remainder of the review of systems is negative. Exam - Vital Signs Reviewed Vital Signs: Yes Vital Signs: Vital Signs x48h Temp Pulse Pulse Resp BP BP Pulse Ox 03/29/18 23:32 36.7 C 78 16 180/108 H 98 03/29/18 22:45 82 18 171/99 H 99 03/29/18 22:13 79 18 188/115 H 03/29/18 22:12 188/115 H 03/29/18 21:39 36.7 C 77 18 167/128 H 98 03/29/18 21:18 74 14 157/117 H 96 03/29/18 20:43 75 14 181/113 H 96 - Physical Exam General Appearance: positive: No acute distress, Alert, Other (Cachectic appearing) Eyes Bilateral: positive: Normal inspection, PERRL, EOMI, No lid inflammation, Conjunctivae nml, No scleral icterus ENT: positive: ENT inspection nml, Pharynx nml, Dry mucous membranes. negative : Purulent nasal drainage, Pharyngeal erythema, Oral lesions Neck: positive: Nml inspection, Thyroid nml, No JVD, Trachea midline. negative : Thyromegaly, Lymphadenopathy (R), Lymphadenopathy (L), Stiff neck, Carotid bruit, Tracheal deviation Respiratory: positive: Chest non-tender, No respiratory distress, Breath sounds nml. negative: Wheezes, Rales, Rhonchi Cardiovascular: positive: Regular rate & rhythm, No murmur, No gallop Peripheral Pulses: positive: 2+ Abdomen: positive: No organomegaly, Nml bowel sounds, Tenderness (Mild tenderness worse than the left abdomen. Abdomen appears to be distended, no rebound, no guarding.). negative: Guarding, Rebound, Hepatomegaly Back: positive: Nml inspection. negative: CVA tenderness (R), CVA tenderness (L ) Skin: positive: Color nml, No rash, Warm. negative: Cyanosis, Diaphoresis, Pallor, Skin rash Extremities: positive: Non-tender, Full ROM, Nml appearance, No pedal edema Neurologic/Psychiatric: positive: Oriented x3, CN's nml (2-12), Motor nml, Sensation nml, Mood/affect nml Conclusion/Plan - Problem List (1) Abdominal pain Conclusion/Plan: Patient presented with abdominal pain and has extensive surgical history. She also had associated nausea and vomiting along with chills. CT abdomen/pelvis is concerning for small bowel obstruction or ileus. Surgery was consulted in the emergency department and concern for possible mesenteric ischemia and asked for patient to be transferred for mesenteric angiography. Emergency room physician attempted to transfer patient however radiologist at [facility] said that there was no difference between doing a mesenteric angiography and CT angiogram of the abdomen and pelvis. CT angiogram of abdomen pelvis was performed and did not show any evidence of ischemia or stenosis or occlusions in the mesenteric arteries. The patient was therefore placed in observation for small bowel obstruction/ileus Plan: IV fluids N.p.o. Pain control with IV pain medication IV antiemetics Surgical consult Qualifiers: Abdominal location: generalized Qualified Code(s): R10.84 - Generalized abdominal pain (2) Hypertension Conclusion/Plan: Patient's blood pressure was severely elevated on presentation in the emergency department. The patient does have history of hypertension which has been difficult to control in the past. Patient was given several doses of metoprolol IV in the emergency department. Blood pressure remained high. Blood pressure may be high partly due to her pain. Plan: Pain control with IV pain medication Continue patient's home dose of metoprolol and losartan which we will give tonight Start patient on p.o. nifedipine and hydralazine today Give IV antihypertensive if blood pressure still not improving Monitor blood pressure and titrate medications Qualifiers: Hypertension type: unspecified Qualified Code(s): I10 - Essential (primary ) hypertension (3) Hyperglycemia Conclusion/Plan: Patient is hyperglycemic on presentation with a blood glucose of 135. She does not have a history of diabetes and blood glucose may be elevated secondary to ongoing stress from abdominal pain and ongoing intra-abdominal process. We will get a hemoglobin A1c in the morning and monitor glucose daily. - Lab Results Lab results reviewed: Yes Fish Bones: 03/29/18 08:51 03/29/18 08:51 Other Lab Results: Laboratory Results WBC 8.8 x10^3/uL (4.8-10.8) 03/29/18 08:51 RBC 4.98 10^6/uL (4.20-5.40) 03/29/18 08:51 Hgb 14.1 g/dL (12.0-16.0) 03/29/18 08:51 Hct 43.0 % (37.0-47.0) 03/29/18 08:51 MCV 86.3 fL (81.0-99.0) 03/29/18 08:51 MCH 28.3 pg (27.0-31.0) 03/29/18 08:51 MCHC 32.8 g/dL (32.0-36.0) 03/29/18 08:51 RDW 15.1 % (12.0-15.0) H 03/29/18 08:51 Plt Count 280 10^3/uL (130-450) 03/29/18 08:51 MPV 9.2 fL (7.9-10.8) 03/29/18 08:51 Neut # (Auto) 5.6 10^3/uL (1.5-6.6) 03/29/18 08:51 Lymph # (Auto) 2.4 10^3/uL (1.5-3.5) 03/29/18 08:51 [place] # (Auto) 0.6 10^3/uL (0.0-1.0) 03/29/18 08:51 Eos # (Auto) 0.1 10^3/uL (0.0-0.7) 03/29/18 08:51 Baso # (Auto) 0.1 10^3/uL (0.0-0.1) 03/29/18 08:51 Absolute Nucleated RBC 0.00 x10^3/uL 03/29/18 08:51 Nucleated RBC % 0.0 /100WBC 03/29/18 08:51 Sodium 136 mmol/L (135-145) 03/29/18 08:51 Potassium 4.7 mmol/L (3.5-5.0) 03/29/18 08:51 Chloride 97 mmol/L (101-111) L 03/29/18 08:51 Carbon Dioxide 29 mmol/L (21-32) 03/29/18 08:51 Anion Gap 10.0 (6-13) 03/29/18 08:51 BUN 12 mg/dL (6-20) 03/29/18 08:51 Creatinine 1.0 mg/dL (0.4-1.0) 03/29/18 08:51 Estimated GFR (MDRD) 56 (>89) L 03/29/18 08:51 Glucose 135 mg/dL (70-100) H 03/29/18 08:51 Lactic Acid 0.7 mmol/L (0.5-2.2) 03/29/18 13:43 Calcium 10.2 mg/dL (8.5-10.3) 03/29/18 08:51 Troponin I < 0.04 ng/mL (<0.49) 03/29/18 08:51 Urine Color YELLOW 03/29/18 11:21 Urine Clarity CLEAR (CLEAR) 03/29/18 11:21 Urine pH 7.0 PH (5.0-7.5) 03/29/18 11:21 Ur Specific [place] 1.010 (1.002-1.030) 03/29/18 11:21 Urine Protein NEGATIVE mg/dL (NEGATIVE) 03/29/18 11:21 Urine Glucose (UA) NEGATIVE mg/dL (NEGATIVE) 06/29/18 11:21 Urine Ketones 15 mg/dL (NEGATIVE) H 03/29/18 11:21 Urine Occult Blood NEGATIVE (NEGATIVE) 03/29/18 11:21 Urine Nitrite NEGATIVE (NEGATIVE) 03/29/18 11:21 Urine Bilirubin NEGATIVE (NEGATIVE) 03/29/18 11:21 Urine Urobilinogen 0.2 (NORMAL) E.U./dL (NORMAL) 03/29/18 11:21 Ur Leukocyte Esterase NEGATIVE (NEGATIVE) 03/29/18 11:21 Ur Microscopic Review NOT INDICATED 03/29/18 11:21 Urine Culture Comments NOT INDICATED 03/29/18 11:21 - Diagnostic Imaging Results Diagnostic Imaging Results: positive: Final report reviewed Diagnostic Imaging Results Comments: CT abdomen/pelvis Impression: 1. Status post colostomy takedown with postsurgical changes in the abdomen and pelvis. 2. Multiple loops of fluid and air-filled dilated small bowel with no transition point identified. There is stool in the colon. Findings can be seen in the setting of ileus or partial small bowel obstruction. A Gastrografin small bowel series challenge may be of benefit to further characterize this finding. CT angiogram abdomen/pelvis Impression: 1. There is no evidence of arterial occlusion or significant stenosis. 2. Mildly dilated left abdomen small bowel persists. 3. Arterial phase imaging of the solid abdominal organs demonstrates no acute abnormalities. 4. There is moderate stool within the colon. Core Measures - Anticipated LOS I expect patient to be DC'd or transferred within 96 hours.: Yes - DVT/VTE - Prophylaxis VTE/DVT Prophylaxis med ordered at admit?: Yes
[2018-03-30] MEDS: SODIUM CHLORIDE FLUSH 0.9% 10 ML SYRINGE IVP SCH ×3 (01:51→16:15)
[2018-03-30] MEDS ORDERED: LOSARTAN 50 MG TABLET PO SCH (02:00)
[2018-03-30] MEDS: ONDANSETRON 4 MG/2 ML VIAL IVP PRN ×2 (03:13→17:31)
[2018-03-30] MEDS: MORPHINE 2 MG/ML SYRINGE IVP PRN (03:13)
[2018-03-30] MEDS: CYCLOBENZAPRINE 10 MG TABLET PO SCH ×3 (06:13→21:36)
[2018-03-30] MEDS: SODIUM CHLORIDE 0.9% 1,000 ML IV SCH ×3 (06:17→23:26)
[2018-03-30 06:53] LABS: INR 1.2 (0.8-1.2); PT - PROTHROMBIN TIME 13.3 secs (9.9-12.6)
[2018-03-30 06:54] LABS: BASOPHILS # (AUTO) 0.1 10^3/uL (0.0-0.1); BASOPHILS % (AUTO) 0.9 %; EOSINOPHILS # (AUTO) 0.1 10^3/uL (0.0-0.7); EOSINOPHILS % (AUTO) 1.6 %; HGB - HEMOGLOBIN 13.2 g/dL (12.0-16.0); LYMPHOCYTES # (AUTO) 2.2 10^3/uL (1.5-3.5); LYMPHOCYTES % (AUTO) 26.6 %; MEAN CORPUSCULAR HEMOGLOBIN 28.1 pg (27.0-31.0); MEAN CORPUSCULAR HGB CONC 32.2 g/dL (32.0-36.0); MEAN CORPUSCULAR VOLUME 87.4 fL (81.0-99.0); MEAN PLATELET VOLUME 9.1 fL (7.9-10.8); MONOCYTES # (AUTO) 0.5 10^3/uL (0.0-1.0); MONOCYTES % (AUTO) 6.6 %; NEUTROPHILS # (AUTO) 5.2 10^3/uL (1.5-6.6); NEUTROPHILS % (AUTO) 64.3 %; PLT - PLATELET COUNT 254 10^3/uL (130-450); RED BLOOD COUNT 4.69 10^6/uL (4.20-5.40); WHITE BLOOD COUNT 8.1 x10^3/uL (4.8-10.8)
[2018-03-30 07:06] LABS: ALBUMIN 3.4 g/dL (3.2-5.5); ALBUMIN/GLOBULIN RATIO 1.1 (1.0-2.2); BILIRUBIN,TOTAL 0.6 mg/dL (0.2-1.0); CALCIUM 8.6 mg/dL (8.5-10.3); HB2 TOTAL 13.8 g/dL; HEMOGLOBIN A1C 0.52 g/dL; HEMOGLOBIN A1C % 5.6 % (4.6-6.2); MAGNESIUM 1.7 mg/dL (1.7-2.8); PHOSPHORUS 3.4 mg/dL (2.5-4.6); TOTAL PROTEIN 6.4 g/dL (6.7-8.2)
[2018-03-30] MEDS: NIFEdipine ER 30 MG TABLET PO SCH (08:57)
[2018-03-30] MEDS: MULTIVITAMIN W/MINERALS TABLET PO SCH (08:57)
[2018-03-30] MEDS: FAMOTIDINE 20 MG TABLET PO SCH (08:57)
[2018-03-30] MEDS: METOPROLOL TARTRATE 50 MG TABLET PO SCH ×2 (08:57→21:35)
[2018-03-30] MEDS: hydrALAZINE 25 MG TABLET PO SCH ×4 (08:57→21:36)
[2018-03-30] MEDS: ENOXAPARIN 40 MG/0.4 ML SYRINGE SUBQ SCH (08:58)
[2018-03-30] MEDS: POLYETHYLENE GLYCOL 3350 17 GM PACKET PO SCH (09:01)
--- NOTE | 2018-03-30 09:07 | PROVIDER PROGRESS NOTE ---
Assessment/Plan - Problem List (1) Abdominal pain Qualifiers: Abdominal location: generalized Qualified Code(s): R10.84 - Generalized abdominal pain Assessment/Plan: Markedly improved today, etiology still unclear: gastroenteritis vs partial SBO ; also poss would be acute pancreatitis; no evidence of mesenteric ischemia on CT angio yesterday. Rec: 2 view abd series today, check lipase, and if satisfactory initiate trial of clear liquid diet. - Current Meds Current Meds: Current Medications Generic Name Dose Route Start Last Admin Trade Name Freq PRN Reason Stop Dose Admin Cyclobenzaprine HCl 5 mg 03/30/18 06:00 03/30/18 06:13 Flexeril PO 5 mg TID AMNA Administration Enoxaparin Sodium 40 mg 03/30/18 09:00 03/30/18 08:58 Lovenox SUBQ 40 mg DAILY AMNA Administration Famotidine 20 mg 03/30/18 09:00 03/30/18 08:57 Pepcid PO 20 mg DAILY AMNA Administration Hydralazine HCl 25 mg 03/29/18 21:00 03/30/18 08:57 Apresoline PO 25 mg QID AMNA Administration Metoprolol Tartrate 100 mg 03/29/18 21:00 03/30/18 08:57 Lopressor PO 100 mg BID AMNA Administration Morphine Sulfate 4 mg 03/29/18 20:38 03/30/18 03:13 Morphine IVP 4 mg Q2H PRN Administration Pain 8 to 10 Multivitamins/Minerals 1 tab 03/30/18 08:00 03/30/18 08:57 Theragran M PO 1 tab DAILYWM AMNA Administration Nifedipine 30 mg 03/29/18 21:00 03/30/18 08:57 Procardia Xl PO 30 mg DAILY AMNA Administration Ondansetron HCl 4 mg 03/29/18 20:38 03/30/18 03:13 Zofran Inj IVP 4 mg Q6HR PRN Administration Nausea / Vomiting Polyethylene Glycol 17 gm 03/30/18 09:00 03/30/18 09:01 Miralax PO Not Given DAILY AMNA Sodium Chloride 10 ml 03/30/18 01:00 03/30/18 08:58 Normal Saline Flush 0.9% IVP Not Given 0100,0900,1700 AMNA - Lab Result Lab results reviewed: Yes Fish Bone Diagrams: 03/30/18 06:35 03/30/18 06:44 Other Lab Results: lft's nl - Diagnostic Imaging Results Diagnostic Imaging Results: Final report reviewed, Read independently Diagnostic Imaging Results Comments: CT angio showed dilated loops of proximal small bowel but no transition zone, ow neg. - Additional Planning Condition/Complexity: Improved My Orders: My Active Orders 03/30/18 09:01 Abdomen 2 View X-Ray [XR] Routine 03/30/18 09:04 Sodium Chloride 0.9% [Normal Saline 0.9%] 1,000 ml IV 80 mls/hr Plan Discussed with:: Patient Time Spent: 15-30 minutes Subjective - Subjective Patient Reports: Feeling Better (no N/V since admission; no flatus or stool), Abdominal Pain (now 2/10 6 hours after last dose of narcotics) Nursing Reports: No Complaints Objective Vital Signs: Vital Signs - 24 hr 03/29/18 03/29/18 03/29/18 20:43 21:18 21:39 Temperature 36.7 C Heart Rate 75 74 Heart Rate [ 77 Brachial] Respiratory 14 14 18 Rate Blood Pressure 181/113 H 157/117 H Blood Pressure 167/128 H [Right Brachial artery] O2 Saturation 96 96 98 03/29/18 03/29/18 03/29/18 22:12 22:13 22:45 Temperature Heart Rate Heart Rate [ 79 82 Brachial] Respiratory 18 18 Rate Blood Pressure 188/115 H Blood Pressure 188/115 H 171/99 H [Right Brachial artery] O2 Saturation 99 03/29/18 03/30/18 03/30/18 23:32 05:27 07:37 Temperature 36.7 C 36.6 C 37.1 C Heart Rate Heart Rate [ 78 73 79 Brachial] Respiratory 16 18 17 Rate Blood Pressure Blood Pressure 180/108 H 129/86 H 117/81 H [Right Brachial artery] O2 Saturation 98 96 97 03/30/18 08:57 Temperature Heart Rate Heart Rate [ Brachial] Respiratory Rate Blood Pressure 117/81 H Blood Pressure [Right Brachial artery] O2 Saturation Oxygen O2 Source Room air I&O (Last 24 Hrs): Intake and Output Totals x24h 03/28/18 03/29/18 03/30/18 23:59 23:59 23:59 Intake Total 820 Output Total 450 Balance 370 General: Alert, Oriented x3, Cooperative, No acute distress HEENT: Mucous membr. moist/pink Neck: Supple, No JVD Neuro: Alert Cardiovascular: Regular rate, Other (loud midsystolic murmur) Respiratory: Chest non-tender, No respiratory distress, Breath sounds nml Abdomen: No tenderness, No hepatospenomegaly, Other (hyperactive, tympanitic bowel sounds with rushes) Extremities: No edema, No tenderness/swelling Skin: No rashes - Results Results: Laboratory Results WBC 8.1 x10^3/uL (4.8-10.8) 03/30/18 06:35 RBC 4.69 10^6/uL (4.20-5.40) 03/30/18 06:35 Hgb 13.2 g/dL (12.0-16.0) 03/30/18 06:35 Hct 41.0 % (37.0-47.0) 03/30/18 06:35 MCV 87.4 fL (81.0-99.0) 03/30/18 06:35 MCH 28.1 pg (27.0-31.0) 03/30/18 06:35 MCHC 32.2 g/dL (32.0-36.0) 03/30/18 06:35 RDW 15.0 % (12.0-15.0) 03/30/18 06:35 Plt Count 254 10^3/uL (130-450) 03/30/18 06:35 MPV 9.1 fL (7.9-10.8) 03/30/18 06:35 Neut # (Auto) 5.2 10^3/uL (1.5-6.6) 03/30/18 06:35 Lymph # (Auto) 2.2 10^3/uL (1.5-3.5) 03/30/18 06:35 [place] # (Auto) 0.5 10^3/uL (0.0-1.0) 03/30/18 06:35 Eos # (Auto) 0.1 10^3/uL (0.0-0.7) 03/30/18 06:35 Baso # (Auto) 0.1 10^3/uL (0.0-0.1) 03/30/18 06:35 Absolute Nucleated RBC 0.01 x10^3/uL 03/30/18 06:35 Nucleated RBC % 0.1 /100WBC 03/30/18 06:35 PT 13.3 secs (9.9-12.6) H 03/30/18 06:35 INR 1.2 (0.8-1.2) 03/30/18 06:35 Sodium 133 mmol/L (135-145) L 03/30/18 06:44 Potassium 3.7 mmol/L (3.5-5.0) 03/30/18 06:44 Chloride 101 mmol/L (101-111) 03/30/18 06:44 Carbon Dioxide 24 mmol/L (21-32) 03/30/18 06:44 Anion Gap 8.0 (6-13) 03/30/18 06:44 BUN 8 mg/dL (6-20) 03/30/18 06:44 Creatinine 1.0 mg/dL (0.4-1.0) 03/30/18 06:44 Estimated GFR (MDRD) 56 (>89) L 03/30/18 06:44 Glucose 113 mg/dL (70-100) H 03/30/18 06:44 Glycated Hemoglobin 5.6 % (4.6-6.2) 03/30/18 06:44 Estim Average Glucose 114 (70-100) H 03/30/18 06:44 Lactic Acid 0.6 mmol/L (0.5-2.2) 03/30/18 06:35 Calcium 8.6 mg/dL (8.5-10.3) 03/30/18 06:44 Phosphorus 3.4 mg/dL (2.5-4.6) 03/30/18 06:44 Magnesium 1.7 mg/dL (1.7-2.8) 03/30/18 06:44 Total Bilirubin 0.6 mg/dL (0.2-1.0) 03/30/18 06:44 AST 17 IU/L (10-42) 03/30/18 06:44 ALT 13 IU/L (10-60) 03/30/18 06:44 Alkaline Phosphatase 63 IU/L (42-121) 03/30/18 06:44 Troponin I < 0.04 ng/mL (<0.49) 03/29/18 08:51 Total Protein 6.4 g/dL (6.7-8.2) L 03/30/18 06:44 Albumin 3.4 g/dL (3.2-5.5) 03/30/18 06:44 Globulin 3.0 g/dL (2.1-4.2) 03/30/18 06:44 Albumin/Globulin Ratio 1.1 (1.0-2.2) 03/30/18 06:44 Urine Color YELLOW 03/29/18 11:21 Urine Clarity CLEAR (CLEAR) 03/29/18 11:21 Urine pH 7.0 PH (5.0-7.5) 03/29/18 11:21 Ur Specific [place] 1.010 (1.002-1.030) 03/29/18 11:21 Urine Protein NEGATIVE mg/dL (NEGATIVE) 03/29/18 11:21 Urine Glucose (UA) NEGATIVE mg/dL (NEGATIVE) 03/29/18 11:21 Urine Ketones 15 mg/dL (NEGATIVE) H 03/29/18 11:21 Urine Occult Blood NEGATIVE (NEGATIVE) 03/29/18 11:21 Urine Nitrite NEGATIVE (NEGATIVE) 03/29/18 11:21 Urine Bilirubin NEGATIVE (NEGATIVE) 03/29/18 11:21 Urine Urobilinogen 0.2 (NORMAL) E.U./dL (NORMAL) 03/29/18 11:21 Ur Leukocyte Esterase NEGATIVE (NEGATIVE) 03/29/18 11:21 Ur Microscopic Review NOT INDICATED 03/29/18 11:21 Urine Culture Comments NOT INDICATED 03/29/18 11:21 - Procedures Procedures: Procedures BYPASS DESCENDING COLON TO CUTANEOUS, OPEN APPROACH (09/03/17) EXCISION OF ASCENDING COLON, OPEN APPROACH (09/03/17) EXCISION OF ILEUM, OPEN APPROACH (09/03/17) INSERTION OF INFUSION DEV INTO SUP VENA CAVA, PERC APPROACH (09/03/17) INTRODUCTION OF NUTRITIONAL INTO CENTRAL VEIN, PERC APPROACH (09/03/17) REPAIR SIGMOID COLON, PERCUTANEOUS ENDOSCOPIC APPROACH (02/05/18) RESECTION OF SIGMOID COLON, OPEN APPROACH (09/03/17) RESPIRATORY VENTILATION, GREATER THAN 96 CONSECUTIVE HOURS (09/03/17) TRANSFUSE NONAUT RED BLOOD CELLS IN CENTRAL VEIN, PERC (09/03/17) ABX Reporting Has patient been on IV antibiotics over the past 48 hours?: No
--- NOTE | 2018-03-30 10:11 | XRAY Report ---
Procedure Date: 03/30/2018 Accession Number: [id number] / [id number] Procedure: XR - Abdomen 2 View X-Ray CPT Code: 53488 FULL RESULT: EXAM: ABDOMEN RADIOGRAPHY EXAM DATE: 03/30/2018 09:55 AM. CLINICAL HISTORY: F/u ileus vs SBO. COMPARISON: Abdominal CT dated 03/29/2018. TECHNIQUE: 2 views. FINDINGS: Lung Bases: Unremarkable. Bowel Gas Pattern: Again demonstrated are multiple loops of dilated air-filled small bowel with air and stool in the colon and rectum. Free Air: None. Other: None. IMPRESSION: Persistent ileus/partial small bowel obstruction, similar to the prior examination. [facility]
[2018-03-30] MEDS: oxyCODONE 5 MG TABLET PO PRN ×2 (12:37→21:39)
--- NOTE | 2018-03-30 12:52 | PROVIDER PROGRESS NOTE ---
Subjective - Prog Note Date Prog Note Date: 03/30/18 Prog Note Time: 11:00 - Subjective Pt reports feeling: Improved Subjective: Patient says she feels much better today. She says her pain is almost completely resolved and denies any nausea or vomiting. She also denies fevers, chills, shortness of breath, or chest pain. She has been ambulating and passing gas. Current Medications - Current Medications Current Medications: Active Medications Generic Name Dose Route Start Last Admin Trade Name Freq PRN Reason Stop Dose Admin Acetaminophen 650 mg 03/29/18 20:38 03/30/18 10:49 Tylenol PO 650 mg Q4HR PRN Administration Pain 1 to 4 Cyclobenzaprine HCl 5 mg 03/30/18 06:00 03/30/18 06:13 Flexeril PO 5 mg TID AMNA Administration Enoxaparin Sodium 40 mg 03/30/18 09:00 03/30/18 08:58 Lovenox SUBQ 40 mg DAILY AMNA Administration Famotidine 20 mg 03/30/18 09:00 03/30/18 08:57 Pepcid PO 20 mg DAILY AMNA Administration Hydralazine HCl 25 mg 03/29/18 21:00 03/30/18 08:57 Apresoline PO 25 mg QID AMNA Administration Sodium Chloride 1,000 mls @ 80 mls/hr 03/30/18 09:04 03/30/18 10:53 Normal Saline 0.9% IV 03/31/18 10:03 80 mls/hr .[id number] AMNA Administration Losartan Potassium 100 mg 03/30/18 21:00 Cozaar PO DAILY AMNA Metoprolol Tartrate 100 mg 03/29/18 21:00 03/30/18 08:57 Lopressor PO 100 mg BID AMNA Administration Morphine Sulfate 4 mg 03/29/18 20:38 03/30/18 03:13 Morphine IVP 4 mg Q2H PRN Administration Pain 8 to 10 Multivitamins/Minerals 1 tab 03/30/18 08:00 03/30/18 08:57 Theragran M PO 1 tab DAILYWM AMNA Administration Nifedipine 30 mg 03/29/18 21:00 03/30/18 08:57 Procardia Xl PO 30 mg DAILY AMNA Administration Ondansetron HCl 4 mg 03/29/18 20:38 03/30/18 03:13 Zofran Inj IVP 4 mg Q6HR PRN Administration Nausea / Vomiting Oxycodone HCl 5 mg 03/29/18 20:38 03/30/18 12:37 Roxicodone PO 5 mg Q4HR PRN Administration Pain 5 to 7 Oxycodone HCl 10 mg 03/29/18 20:38 Roxicodone PO Q4HR PRN Pain 8 to 10 Polyethylene Glycol 17 gm 03/30/18 09:00 03/30/18 09:01 Miralax PO Not Given DAILY [facility] Prochlorperazine Edisylate 10 mg 03/29/18 20:38 Compazine Inj IVP Q6HR PRN Nausea / Vomiting Promethazine HCl 25 mg 03/29/18 20:38 Phenergan Inj IM Q6HR PRN Nausea / Vomiting Sodium Chloride 10 ml 03/29/18 20:38 Normal Saline Flush 0.9% IVP PRN PRN NEEDED PER PROVIDER ORDERS Sodium Chloride 10 ml 03/30/18 01:00 03/30/18 08:58 Normal Saline Flush 0.9% IVP Not Given 0100,0900,1700 [facility] Zolpidem Tartrate 5 mg 03/29/18 20:38 Ambien PO QPM PRN Insomnia Losartan [Cozaar] 100 mg PO DAILY 06/19/17 Objective - Vital Signs/Intake & Output Reviewed Vital Signs: Yes Vital Signs: Vital Signs x48h Temp Pulse Resp BP BP Pulse Ox 03/30/18 11:49 37.0 C 80 16 124/84 H 98 03/30/18 08:57 117/81 H 03/30/18 07:37 37.1 C 79 17 117/81 H 97 03/30/18 05:27 36.6 C 73 18 129/86 H 96 Intake & Output: Intake & Output 03/27/18 03/28/18 03/29/18 03/30/18 23:59 23:59 23:59 23:59 Intake Total 1220 Output Total 450 Balance 770 - Objective General Appearance: positive: No acute distress, Alert Eyes Bilateral: positive: Normal inspection, PERRL, EOMI, No lid inflammation, Conjunctivae nml, No scleral icterus ENT: positive: ENT inspection nml, Pharynx nml, No signs of dehydration Neck: positive: Nml inspection, Thyroid nml, No JVD, Trachea midline. negative : Thyromegaly Respiratory: positive: Chest non-tender, No respiratory distress, Breath sounds nml. negative: Wheezes, Rales, Rhonchi Cardiovascular: positive: Regular rate & rhythm, No murmur, No gallop Abdomen: positive: Non-tender, No organomegaly, Nml bowel sounds, No distention. negative: Guarding, Rebound Back: positive: Nml inspection. negative: CVA tenderness (R), CVA tenderness (L ) Skin: positive: Color nml, No rash, Warm, Dry. negative: Cyanosis Extremities: positive: Non-tender, Full ROM, Nml appearance, No pedal edema Neurologic/Psychiatric: positive: Oriented x3, CN's nml (2-12), Motor nml, Sensation nml, Mood/affect nml - Lab Results Fish Bones: 03/30/18 06:35 03/30/18 06:44 Other Labs: Lab Results x24hrs 03/30/18 03/30/18 03/30/18 Range/Units 06:44 06:44 06:35 WBC (4.8-10.8) x10^3/uL RBC (4.20-5.40) 10^6/uL Hgb (12.0-16.0) g/dL Hct (37.0-47.0) % MCV (81.0-99.0) fL MCH (27.0-31.0) pg MCHC (32.0-36.0) g/dL RDW (12.0-15.0) % Plt Count (130-450) 10^3/uL MPV (7.9-10.8) fL Neut # (Auto) (1.5-6.6) 10^3/uL Lymph # (Auto) (1.5-3.5) 10^3/uL [place] # (Auto) (0.0-1.0) 10^3/uL Eos # (Auto) (0.0-0.7) 10^3/uL Baso # (Auto) (0.0-0.1) 10^3/uL Absolute Nucleated RBC x10^3/uL Nucleated RBC % /100WBC PT (9.9-12.6) secs INR (0.8-1.2) Sodium 133 L (135-145) mmol/L Potassium 3.7 (3.5-5.0) mmol/L Chloride 101 (101-111) mmol/L Carbon Dioxide 24 (21-32) mmol/L Anion Gap 8.0 (6-13) BUN 8 (6-20) mg/dL Creatinine 1.0 (0.4-1.0) mg/dL Estimated GFR (MDRD) 56 L (>89) Glucose 113 H (70-100) mg/dL Glycated Hemoglobin 5.6 (4.6-6.2) % Estim Average Glucose 114 H (70-100) Lactic Acid (0.5-2.2) mmol/L Calcium 8.6 (8.5-10.3) mg/dL Phosphorus 3.4 (2.5-4.6) mg/dL Magnesium 1.7 (1.7-2.8) mg/dL Total Bilirubin 0.6 (0.2-1.0) mg/dL AST 17 (10-42) IU/L ALT 13 (10-60) IU/L Alkaline Phosphatase 63 (42-121) IU/L Total Protein 6.4 L (6.7-8.2) g/dL Albumin 3.4 (3.2-5.5) g/dL Globulin 3.0 (2.1-4.2) g/dL Albumin/Globulin Ratio 1.1 (1.0-2.2) Lipase 16 L (22-51) U/L 03/30/18 03/30/18 03/30/18 Range/Units 06:35 06:35 06:35 WBC 8.1 (4.8-10.8) x10^3/uL RBC 4.69 (4.20-5.40) 10^6/uL Hgb 13.2 (12.0-16.0) g/dL Hct 41.0 (37.0-47.0) % MCV 87.4 (81.0-99.0) fL MCH 28.1 (27.0-31.0) pg MCHC 32.2 (32.0-36.0) g/dL RDW 15.0 (12.0-15.0) % Plt Count 254 (130-450) 10^3/uL MPV 9.1 (7.9-10.8) fL Neut # (Auto) 5.2 (1.5-6.6) 10^3/uL Lymph # (Auto) 2.2 (1.5-3.5) 10^3/uL [place] # (Auto) 0.5 (0.0-1.0) 10^3/uL Eos # (Auto) 0.1 (0.0-0.7) 10^3/uL Baso # (Auto) 0.1 (0.0-0.1) 10^3/uL Absolute Nucleated RBC 0.01 x10^3/uL Nucleated RBC % 0.1 /100WBC PT 13.3 H (9.9-12.6) secs INR 1.2 (0.8-1.2) Sodium (135-145) mmol/L Potassium (3.5-5.0) mmol/L Chloride (101-111) mmol/L Carbon Dioxide (21-32) mmol/L Anion Gap (6-13) BUN (6-20) mg/dL Creatinine (0.4-1.0) mg/dL Estimated GFR (MDRD) (>89) Glucose (70-100) mg/dL Glycated Hemoglobin (4.6-6.2) % Estim Average Glucose (70-100) Lactic Acid 0.6 (0.5-2.2) mmol/L Calcium (8.5-10.3) mg/dL Phosphorus (2.5-4.6) mg/dL Magnesium (1.7-2.8) mg/dL Total Bilirubin (0.2-1.0) mg/dL AST (10-42) IU/L ALT (10-60) IU/L Alkaline Phosphatase (42-121) IU/L Total Protein (6.7-8.2) g/dL Albumin (3.2-5.5) g/dL Globulin (2.1-4.2) g/dL Albumin/Globulin Ratio (1.0-2.2) Lipase (22-51) U/L - Diagnostic Imaging Diagnostic Imaging Results: positive: Final report reviewed Diagnostic Imaging Comments: EXAM: CT ABDOMEN AND PELVIS EXAM DATE: 03/29/2018 09:59 AM. CLINICAL HISTORY: Hx perf with colostomy 09/16 take down 02/15. COMPARISONS: None. TECHNIQUE: Routine helical CT imaging was performed through the abdomen and pelvis. IV contrast: None. Enteric contrast: No. Reconstructions: Coronal and sagittal. In accordance with CT protocol optimization, one or more of the following dose reduction techniques were utilized for this exam: automated exposure control, adjustment of mA and/or KV based on patient size, or use of iterative reconstructive technique. FINDINGS: Lung Bases: Unremarkable. Liver: Normal. No masses. Gallbladder/Bile Ducts: Unremarkable. Spleen: Normal. Pancreas: Normal. Adrenal Glands: Normal. 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 No hydronephrosis or renal calculus. Peritoneal Cavity/Bowel: Postsurgical changes status post colostomy takedown with dilated loops of small bowel in the left abdomen with no transition point identified.. No free air-fluid in the abdomen or. No masses or acute inflammatory process. The appendix is not visualized. Pelvic Organs: Normal. The bladder and visualized pelvic organs are within normal limits. Vasculature: No aneurysms or other significant abnormality. Bones: No significant abnormality. Other: None. IMPRESSION: 1. Status post colostomy takedown with postsurgical changes in the abdomen and pelvis. 2. Multiple loops of fluid and air-filled dilated small bowel with no transition point identified. There is stool in the colon. Findings can BE seen in the setting of ileus or partial small bowel obstruction. A Gastrografin small bowel series challenge may be of benefit to further characterize this finding. EXAM: CT ANGIOGRAM ABDOMEN AND PELVIS WITH CONTRAST EXAM DATE: 03/29/2018 06:00 PM. CLINICAL HISTORY: Mesenteric ischemia COMPARISONS: 03/29/2018. TECHNIQUE: Routine helical CT angiogram imaging was performed through the abdomen and pelvis in the arterial phase. IV contrast: 100 cc Isovue-300. Enteric contrast: No. Reconstructions: Coronal, sagittal, and 3D MIP reconstructions. In accordance with CT protocol optimization, one or more of the following dose reduction techniques were utilized for this exam: automated exposure control, adjustment of mA and/or KV based on patient size, or use of iterative reconstructive technique. FINDINGS: Vasculature: There is no evidence of aortic dissection or aneurysm. There is thoracic aortic tortuosity. There are scattered atheromatous disease of the aorta. The celiac artery and its branches are patent. The visualized superior mesenteric artery is patent. The renal arteries are patent. The inferior mesenteric artery is patent. There is no evidence of iliac occlusion. Lung Bases: Normal. Abdominal Solid Organs: Arterial phase imaging of the solid abdominal organs demonstrates no acute abnormalities. Peritoneal Cavity: There is some mildly dilated left abdomen small bowel. There is decompressed small bowel within the right abdomen. No acute colonic abnormalities are seen. There is moderate stool within colon. Pelvic Organs: Normal. The bladder and visualized pelvic organs are within normal limits. Bones: No significant abnormality. Other: None. IMPRESSION: 1. There is no evidence of arterial occlusion or significant stenosis. 2. Mildly dilated left abdomen small bowel persists. 3. Arterial phase imaging of the solid abdominal organs demonstrates no acute abnormalities. 4. There is moderate stool within colon. EXAM: ABDOMEN RADIOGRAPHY EXAM DATE: 03/30/2018 09:55 AM. CLINICAL HISTORY: F/u ileus vs SBO. COMPARISON: Abdominal CT dated 03/29/2018. TECHNIQUE: 2 views. FINDINGS: Lung Bases: Unremarkable. Bowel Gas Pattern: Again demonstrated are multiple loops of dilated air-filled small bowel with air and stool in the colon and rectum. Free Air: None. Other: None. IMPRESSION: Persistent ileus/partial small bowel obstruction, similar to the prior examination. ABX Reporting Has patient been on IV antibiotics over the past 48 hours?: Yes Assessment/Plan - Problem List (1) Abdominal pain Impression: When the patient initially presented in the emergency department and was seen by Dr. Vargas it was felt that she likely had ischemic bowel due to pain being out of proportion with the physical exam. It now appears that she has a partial small bowel obstruction. Her pain has been well managed and we will start her on a clear liquid diet at this time. If she tolerates this we will move her to a regular diet. Qualifiers: Abdominal location: generalized Qualified Code(s): R10.84 - Generalized abdominal pain (2) Hyperglycemia Impression: The patient was slightly hyperglycemic on admission but has not been hypoglycemic since. I will obtain hemoglobin A1c. (3) Hypertension Impression: The patient takes metoprolol and losartan at home and her diastolic blood pressures have been in the low to mid 80s. I will add hydrochlorothiazide to the patient's medication regimen. Qualifiers: Hypertension type: essential hypertension Qualified Code(s): I10 - Essential (primary) hypertension
[2018-03-30] MEDS: hydroCHLOROthiazide 25 MG TABLET PO SCH (13:28)
[2018-03-30] MEDS: LOSARTAN 50 MG TABLET PO SCH (21:35)
[2018-03-30] MEDS: PROCHLORPERAZINE 10 MG/2 ML VIAL IVP PRN (21:42)
[2018-03-31] MEDS: MORPHINE 2 MG/ML SYRINGE IVP PRN (04:11)
[2018-03-31] MEDS: SODIUM CHLORIDE FLUSH 0.9% 10 ML SYRINGE IVP SCH ×3 (05:45→17:33)
[2018-03-31] MEDS: CYCLOBENZAPRINE 10 MG TABLET PO SCH ×2 (06:19→17:36)
[2018-03-31 06:58] LABS: BASOPHILS # (AUTO) 0.1 10^3/uL (0.0-0.1); BASOPHILS % (AUTO) 0.6 %; EOSINOPHILS # (AUTO) 0.1 10^3/uL (0.0-0.7); EOSINOPHILS % (AUTO) 0.9 %; HGB - HEMOGLOBIN 13.7 g/dL (12.0-16.0); LYMPHOCYTES # (AUTO) 2.2 10^3/uL (1.5-3.5); LYMPHOCYTES % (AUTO) 16.8 %; MEAN CORPUSCULAR HEMOGLOBIN 27.8 pg (27.0-31.0); MEAN CORPUSCULAR VOLUME 86.8 fL (81.0-99.0); MEAN PLATELET VOLUME 9.5 fL (7.9-10.8); MONOCYTES # (AUTO) 0.6 10^3/uL (0.0-1.0); MONOCYTES % (AUTO) 4.6 %; NEUTROPHILS # (AUTO) 10.2 10^3/uL (1.5-6.6); NEUTROPHILS % (AUTO) 77.1 %; PLT - PLATELET COUNT 272 10^3/uL (130-450); RED BLOOD COUNT 4.92 10^6/uL (4.20-5.40); RED CELL DISTRIBUTION WIDTH 14.8 % (12.0-15.0); WHITE BLOOD COUNT 13.2 x10^3/uL (4.8-10.8)
[2018-03-31 07:22] LABS: ALBUMIN 3.4 g/dL (3.2-5.5); ALBUMIN/GLOBULIN RATIO 1.2 (1.0-2.2); BILIRUBIN,TOTAL 0.9 mg/dL (0.2-1.0); CALCIUM 8.6 mg/dL (8.5-10.3); CREATININE 0.9 mg/dL (0.4-1.0); MAGNESIUM 1.8 mg/dL (1.7-2.8); PHOSPHORUS 3.8 mg/dL (2.5-4.6); TOTAL PROTEIN 6.3 g/dL (6.7-8.2)
[2018-03-31] MEDS: POLYETHYLENE GLYCOL 3350 17 GM PACKET PO SCH (09:09)
[2018-03-31] MEDS: LOSARTAN 50 MG TABLET PO SCH (09:10)
[2018-03-31] MEDS: MULTIVITAMIN W/MINERALS TABLET PO SCH (09:10)
[2018-03-31] MEDS: hydrALAZINE 25 MG TABLET PO SCH ×4 (09:11→23:46)
[2018-03-31] MEDS: hydroCHLOROthiazide 25 MG TABLET PO SCH (09:11)
[2018-03-31] MEDS: FAMOTIDINE 20 MG TABLET PO SCH (09:11)
[2018-03-31] MEDS: oxyCODONE 5 MG TABLET PO PRN ×4 (09:11→22:05)
[2018-03-31] MEDS: NIFEdipine ER 30 MG TABLET PO SCH (09:11)
[2018-03-31] MEDS: METOPROLOL TARTRATE 50 MG TABLET PO SCH ×2 (09:11→23:47)
[2018-03-31] MEDS: ENOXAPARIN 40 MG/0.4 ML SYRINGE SUBQ SCH (09:12)
[2018-03-31] MEDS: SODIUM CHLORIDE FLUSH 0.9% 10 ML SYRINGE IVP PRN ×2 (09:19→12:40)
--- NOTE | 2018-03-31 10:39 | PROVIDER PROGRESS NOTE ---
Assessment/Plan - Problem List (1) Abdominal pain Qualifiers: Abdominal location: generalized Qualified Code(s): R10.84 - Generalized abdominal pain Assessment/Plan: Worse today with N/v x 2 last night after clear liquid diet. DDX includes partial SBO, atypical gallbladder disease, intestinal angina. Rec: NPO, IVF, repeat plain films of abd, obtain abd US, consider SBFT as well. (2) Hyponatremia Assessment/Plan: Will resume IVF with NS, minimize free water intake. - Current Meds Current Meds: Current Medications Generic Name Dose Route Start Last Admin Trade Name Freq PRN Reason Stop Dose Admin Acetaminophen 650 mg 03/29/18 20:38 03/30/18 10:49 Tylenol PO 650 mg Q4HR PRN Administration Pain 1 to 4 Cyclobenzaprine HCl 5 mg 03/30/18 06:00 03/31/18 06:19 Flexeril PO 5 mg TID AMNA Administration Enoxaparin Sodium 40 mg 03/30/18 09:00 03/31/18 09:12 Lovenox SUBQ 40 mg DAILY AMNA Administration Hydralazine HCl 25 mg 03/29/18 21:00 03/31/18 09:11 Apresoline PO 25 mg QID AMNA Administration Hydrochlorothiazide 25 mg 03/30/18 14:00 03/31/18 09:11 Hydrodiuril PO 25 mg DAILY AMNA Administration Losartan Potassium 100 mg 03/30/18 21:00 03/31/18 09:10 Cozaar PO 100 mg DAILY AMNA Administration Metoprolol Tartrate 100 mg 03/29/18 21:00 03/31/18 09:11 Lopressor PO 100 mg BID AMNA Administration Morphine Sulfate 4 mg 03/29/18 20:38 03/31/18 04:11 Morphine IVP 4 mg Q2H PRN Administration Pain 8 to 10 Multivitamins/Minerals 1 tab 03/30/18 08:00 03/31/18 09:10 Theragran M PO 1 tab DAILYWM AMNA Administration Nifedipine 30 mg 03/29/18 21:00 03/31/18 09:11 Procardia Xl PO 30 mg DAILY AMNA Administration Ondansetron HCl 4 mg 03/29/18 20:38 03/30/18 17:31 Zofran Inj IVP 4 mg Q6HR PRN Administration Nausea / Vomiting Oxycodone HCl 5 mg 03/29/18 20:38 03/31/18 09:11 Roxicodone PO 5 mg Q4HR PRN Administration Pain 5 to 7 Prochlorperazine Edisylate 10 mg 03/29/18 20:38 03/30/18 21:42 Compazine Inj IVP 10 mg Q6HR PRN Administration Nausea / Vomiting Sodium Chloride 10 ml 03/29/18 20:38 03/31/18 09:19 Normal Saline Flush 0.9% IVP 10 ml PRN PRN Administration NEEDED PER PROVIDER ORDERS Sodium Chloride 10 ml 03/30/18 01:00 03/31/18 09:06 Normal Saline Flush 0.9% IVP Not Given 0100,0900,1700 AMNA - Lab Result Fish Bone Diagrams: 03/31/18 06:50 03/31/18 06:50 - Diagnostic Imaging Results Diagnostic Imaging Results: Final report reviewed, Read independently Diagnostic Imaging Results Comments: plain films of abd yesterday showed findings c/w ileus vs partial SBO - Additional Planning Condition/Complexity: Guarded My Orders: My Active Orders 03/31/18 10:21 Abdomen Complete [US] Routine 03/31/18 10:22 Abdomen 2 View X-Ray [XR] Routine 03/31/18 11:00 NS 0.9% w/20 MEQ KCL @ 83.333 mls/hr Ns W/20 Meq KCl [Normal Saline 0.9% W/20 Meq KCl] 1,000 ml IV 83.333 mls/hr 04/01/18 07:00 Pantoprazole [Protonix] 40 mg IVP QDAC Plan Discussed with:: Patient Time Spent: 31-60 minutes Subjective - Subjective Patient Reports: Abdominal Pain (worse than yesterday; N/V last night; no nausea this am but pain worse, generalized, constant; no flatus or stool since admission.) Nursing Reports: Nausea, Pain, Vomitting Objective Vital Signs: Vital Signs - 24 hr 03/30/18 03/30/18 03/30/18 11:49 16:00 20:14 Temperature 37.0 C 37.3 C Heart Rate [ 80 72 89 Brachial] Respiratory 16 18 Rate Blood Pressure Blood Pressure 124/84 H 143/87 H 159/116 H [Right Brachial artery] O2 Saturation 98 99 03/30/18 03/30/18 21:35 23:22 Temperature 36.8 C Heart Rate [ 88 Brachial] Respiratory 15 Rate Blood Pressure 159/116 H Blood Pressure 151/103 H [Right Brachial artery] O2 Saturation 95 Oxygen O2 Source Room air I&O (Last 24 Hrs): Intake and Output Totals x24h 03/29/18 03/30/18 03/31/18 23:59 23:59 23:59 Intake Total 2440.000 Output Total 450 Balance 1990.000 General: Alert, Oriented x3, Cooperative, Moderate distress HEENT: Mucous membr. moist/pink Neck: Supple, No JVD Neuro: Alert Cardiovascular: Regular rate, Normal S1, Normal S2, Other (midsystolic murmur) Respiratory: Chest non-tender, No respiratory distress, Breath sounds nml Abdomen: Soft, Other (nondistended, hyperactive bowel sounds with tympany and rushes; mild diffuse tenderness, possibly worse in RUQ no peritoneal signs.) Extremities: No edema, Normal pulses, No tenderness/swelling Skin: No rashes - Results Results: Laboratory Results WBC 13.2 x10^3/uL (4.8-10.8) H 03/31/18 06:50 RBC 4.92 10^6/uL (4.20-5.40) 03/31/18 06:50 Hgb 13.7 g/dL (12.0-16.0) 03/31/18 06:50 Hct 42.7 % (37.0-47.0) 03/31/18 06:50 MCV 86.8 fL (81.0-99.0) 03/31/18 06:50 MCH 27.8 pg (27.0-31.0) 03/31/18 06:50 MCHC 32.0 g/dL (32.0-36.0) 03/31/18 06:50 RDW 14.8 % (12.0-15.0) 03/31/18 06:50 Plt Count 272 10^3/uL (130-450) 03/31/18 06:50 MPV 9.5 fL (7.9-10.8) 03/31/18 06:50 Neut # (Auto) 10.2 10^3/uL (1.5-6.6) H 03/31/18 06:50 Lymph # (Auto) 2.2 10^3/uL (1.5-3.5) 03/31/18 06:50 [place] # (Auto) 0.6 10^3/uL (0.0-1.0) 03/31/18 06:50 Eos # (Auto) 0.1 10^3/uL (0.0-0.7) 03/31/18 06:50 Baso # (Auto) 0.1 10^3/uL (0.0-0.1) 03/31/18 06:50 Absolute Nucleated RBC 0.00 x10^3/uL 03/31/18 06:50 Nucleated RBC % 0.0 /100WBC 03/31/18 06:50 PT 13.3 secs (9.9-12.6) H 03/30/18 06:35 INR 1.2 (0.8-1.2) 03/30/18 06:35 Sodium 128 mmol/L (135-145) L 03/31/18 06:50 Potassium 3.5 mmol/L (3.5-5.0) 03/31/18 06:50 Chloride 96 mmol/L (101-111) L 03/31/18 06:50 Carbon Dioxide 22 mmol/L (21-32) 03/31/18 06:50 Anion Gap 10.0 (6-13) 03/31/18 06:50 BUN 9 mg/dL (6-20) 03/31/18 06:50 Creatinine 0.9 mg/dL (0.4-1.0) 03/31/18 06:50 Estimated GFR (MDRD) 63 (>89) L 03/31/18 06:50 Glucose 103 mg/dL (70-100) H 03/31/18 06:50 Glycated Hemoglobin 5.6 % (4.6-6.2) 03/30/18 06:44 Estim Average Glucose 114 (70-100) H 03/30/18 06:44 Lactic Acid 0.6 mmol/L (0.5-2.2) 03/30/18 06:35 Calcium 8.6 mg/dL (8.5-10.3) 03/31/18 06:50 Phosphorus 3.8 mg/dL (2.5-4.6) 03/31/18 06:50 Magnesium 1.8 mg/dL (1.7-2.8) 03/31/18 06:50 Total Bilirubin 0.9 mg/dL (0.2-1.0) 03/31/18 06:50 AST 16 IU/L (10-42) 03/31/18 06:50 ALT 11 IU/L (10-60) 03/31/18 06:50 Alkaline Phosphatase 62 IU/L (42-121) 03/31/18 06:50 Troponin I < 0.04 ng/mL (<0.49) 03/29/18 08:51 Total Protein 6.3 g/dL (6.7-8.2) L 03/31/18 06:50 Albumin 3.4 g/dL (3.2-5.5) 03/31/18 06:50 Globulin 2.9 g/dL (2.1-4.2) 03/31/18 06:50 Albumin/Globulin Ratio 1.2 (1.0-2.2) 03/31/18 06:50 Lipase 16 U/L (22-51) L 03/30/18 06:35 Urine Color YELLOW 03/29/18 11:21 Urine Clarity CLEAR (CLEAR) 03/29/18 11:21 Urine pH 7.0 PH (5.0-7.5) 03/29/18 11:21 Ur Specific [place] 1.010 (1.002-1.030) 03/29/18 11:21 Urine Protein NEGATIVE mg/dL (NEGATIVE) 03/29/18 11:21 Urine Glucose (UA) NEGATIVE mg/dL (NEGATIVE) 03/29/18 11:21 Urine Ketones 15 mg/dL (NEGATIVE) H 03/29/18 11:21 Urine Occult Blood NEGATIVE (NEGATIVE) 03/29/18 11:21 Urine Nitrite NEGATIVE (NEGATIVE) 03/29/18 11:21 Urine Bilirubin NEGATIVE (NEGATIVE) 03/29/18 11:21 Urine Urobilinogen 0.2 (NORMAL) E.U./dL (NORMAL) 03/29/18 11:21 Ur Leukocyte Esterase NEGATIVE (NEGATIVE) 03/29/18 11:21 Ur Microscopic Review NOT INDICATED 03/29/18 11:21 Urine Culture Comments NOT INDICATED 03/29/18 11:21 - Procedures Procedures: Procedures BYPASS DESCENDING COLON TO CUTANEOUS, OPEN APPROACH (09/03/17) EXCISION OF ASCENDING COLON, OPEN APPROACH (09/03/17) EXCISION OF ILEUM, OPEN APPROACH (09/03/17) INSERTION OF INFUSION DEV INTO SUP VENA CAVA, PERC APPROACH (09/03/17) INTRODUCTION OF NUTRITIONAL INTO CENTRAL VEIN, PERC APPROACH (09/03/17) REPAIR SIGMOID COLON, PERCUTANEOUS ENDOSCOPIC APPROACH (02/05/18) RESECTION OF SIGMOID COLON, OPEN APPROACH (09/03/17) RESPIRATORY VENTILATION, GREATER THAN 96 CONSECUTIVE HOURS (09/03/17) TRANSFUSE NONAUT RED BLOOD CELLS IN CENTRAL VEIN, PERC (09/03/17) ABX Reporting Has patient been on IV antibiotics over the past 48 hours?: No
[2018-03-31] MEDS: SODIUM CHLORIDE 0.9% 1,000 ML IV SCH (12:02)
[2018-03-31] MEDS: PANTOPRAZOLE 40 MG VIAL IVP SCH (12:40)
--- NOTE | 2018-03-31 13:20 | Ultrasound Report ---
Procedure Date: 03/31/2018 Accession Number: [id number] / [id number] Procedure: US - Abdomen Complete CPT Code: FULL RESULT: EXAM: ABDOMEN ULTRASOUND EXAM DATE: 03/31/2018 12:19 PM. CLINICAL HISTORY: Abd pain, N,V. COMPARISON: 03/29/2018. TECHNIQUE: Real-time scanning was performed with static images obtained. FINDINGS: Liver: Normal in size with mildly heterogeneous echotexture. 15.2 cm. Main portal vein flow: Hepatopetal. Gallbladder: Normal. No stones, wall thickening, or sonographic Stevens's sign. Biliary System: Common bile duct measures 5 mm. No intrahepatic or extrahepatic ductal dilatation. Pancreas: Visualized portion is unremarkable. Kidneys: Right: 9.6 cm longitudinally. Normal. No contour-deforming mass, stones, or hydronephrosis. Left: 10.3 cm longitudinally. Normal. No contour-deforming mass, stones, or hydronephrosis. Spleen: 8.2 cm. Normal in size and echotexture. Aorta and Inferior Vena Cava: Unremarkable. Other: Trace free fluid in the upper abdomen. IMPRESSION: Mildly heterogeneous hepatic echotexture may reflect nonspecific hepatocellular disease. Trace ascites. Otherwise unremarkable abdominal ultrasound. [facility]
--- NOTE | 2018-03-31 13:42 | XRAY Report ---
Procedure Date: 03/31/2018 Accession Number: [id number] / [id number] Procedure: XR - Abdomen 2 View X-Ray CPT Code: 50891 FULL RESULT: EXAM: ABDOMEN RADIOGRAPHY EXAM DATE: 03/31/2018 12:48 AM. CLINICAL HISTORY: Abdominal pain. Nausea and vomiting. COMPARISON: Abdomen 03/30/2018. TECHNIQUE: 2 views. FINDINGS: Lung Bases: Unremarkable. Bowel Gas Pattern: Mildly dilated loops of small bowel within the midabdomen with some distal colonic air as well as stool. Suture line at the pelvis, likely rectosigmoid. Free Air: None. Other: None. IMPRESSION: Mildly dilated small bowel consistent with a small bowel obstruction with some distal colonic air. Caliber of the small bowel is slightly increased compared to the study of one day prior. [facility]
--- NOTE | 2018-03-31 18:14 | PROVIDER PROGRESS NOTE ---
Assessment/Plan - Problem List (1) SBO (small bowel obstruction) Assessment/Plan: Secondary to adhesions presumably from extensive abdominal surgeries over the past year. Continue bowel rest, pain meds, antiemetics, surgeon following. (2) Generalized muscle weakness Assessment/Plan: Continue supportive nutritional care. Resume diet when appropriate. (3) Hyponatremia Assessment/Plan: Continue NS hydration. Monitor daily labs. - Current Meds Current Meds: Current Medications Generic Name Dose Route Start Last Admin Trade Name Freq PRN Reason Stop Dose Admin Acetaminophen 650 mg 03/29/18 20:38 03/30/18 10:49 Tylenol PO 650 mg Q4HR PRN Administration Pain 1 to 4 Cyclobenzaprine HCl 5 mg 03/30/18 06:00 03/31/18 17:36 Flexeril PO Not Given TID AMNA Enoxaparin Sodium 40 mg 03/30/18 09:00 03/31/18 09:12 Lovenox SUBQ 40 mg DAILY AMNA Administration Hydralazine HCl 25 mg 03/29/18 21:00 03/31/18 17:32 Apresoline PO 25 mg QID AMNA Administration Hydrochlorothiazide 25 mg 03/30/18 14:00 03/31/18 09:11 Hydrodiuril PO 25 mg DAILY AMNA Administration Losartan Potassium 100 mg 03/30/18 21:00 03/31/18 09:10 Cozaar PO 100 mg DAILY AMNA Administration Metoprolol Tartrate 100 mg 03/29/18 21:00 03/31/18 09:11 Lopressor PO 100 mg BID AMNA Administration Morphine Sulfate 4 mg 03/29/18 20:38 03/31/18 04:11 Morphine IVP 4 mg Q2H PRN Administration Pain 8 to 10 Multivitamins/Minerals 1 tab 03/30/18 08:00 03/31/18 09:10 Theragran M PO 1 tab DAILYWM AMNA Administration Nifedipine 30 mg 03/29/18 21:00 03/31/18 09:11 Procardia Xl PO 30 mg DAILY AMNA Administration Ondansetron HCl 4 mg 03/29/18 20:38 03/30/18 17:31 Zofran Inj IVP 4 mg Q6HR PRN Administration Nausea / Vomiting Oxycodone HCl 5 mg 03/29/18 20:38 03/31/18 09:11 Roxicodone PO 5 mg Q4HR PRN Administration Pain 5 to 7 Oxycodone HCl 10 mg 03/29/18 20:38 03/31/18 17:31 Roxicodone PO 10 mg Q4HR PRN Administration Pain 8 to 10 Pantoprazole Sodium 40 mg 03/31/18 11:00 03/31/18 12:40 Protonix IVP 40 mg QDAC AMNA Administration Prochlorperazine Edisylate 10 mg 03/29/18 20:38 03/30/18 21:42 Compazine Inj IVP 10 mg Q6HR PRN Administration Nausea / Vomiting Sodium Chloride 10 ml 03/29/18 20:38 03/31/18 12:40 Normal Saline Flush 0.9% IVP 10 ml PRN PRN Administration NEEDED PER PROVIDER ORDERS Sodium Chloride 10 ml 03/30/18 01:00 03/31/18 17:33 Normal Saline Flush 0.9% IVP 10 ml 0100,0900,1700 AMNA Administration - Lab Result Fish Bone Diagrams: 03/31/18 06:50 03/31/18 06:50 Subjective - Subjective Patient Reports: Other (Had N/V this am, No BM or flatus) Nursing Reports: Other (Abdominal pain moderate and needed pain meds) Objective Vital Signs: Vital Signs - 24 hr 03/31/18 15:15 Temperature 36.6 C Heart Rate [ 75 Brachial] Respiratory 20 Rate Blood Pressure 114/75 [Right Brachial artery] O2 Saturation 94 Oxygen O2 Source Room air General: Alert, Oriented x3 HEENT: Mucous membr. moist/pink Neck: Supple, No JVD Neuro: Non Focal Cardiovascular: Regular rate, No murmurs Respiratory: No respiratory distress, Breath sounds nml Abdomen: Normal bowel sounds, Soft, No tenderness Extremities: No edema - Results Results: Laboratory Results WBC 13.2 x10^3/uL (4.8-10.8) H 03/31/18 06:50 RBC 4.92 10^6/uL (4.20-5.40) 03/31/18 06:50 Hgb 13.7 g/dL (12.0-16.0) 03/31/18 06:50 Hct 42.7 % (37.0-47.0) 03/31/18 06:50 MCV 86.8 fL (81.0-99.0) 03/31/18 06:50 MCH 27.8 pg (27.0-31.0) 03/31/18 06:50 MCHC 32.0 g/dL (32.0-36.0) 03/31/18 06:50 RDW 14.8 % (12.0-15.0) 03/31/18 06:50 Plt Count 272 10^3/uL (130-450) 03/31/18 06:50 MPV 9.5 fL (7.9-10.8) 03/31/18 06:50 Neut # (Auto) 10.2 10^3/uL (1.5-6.6) H 03/31/18 06:50 Lymph # (Auto) 2.2 10^3/uL (1.5-3.5) 03/31/18 06:50 [place] # (Auto) 0.6 10^3/uL (0.0-1.0) 03/31/18 06:50 Eos # (Auto) 0.1 10^3/uL (0.0-0.7) 03/31/18 06:50 Baso # (Auto) 0.1 10^3/uL (0.0-0.1) 03/31/18 06:50 Absolute Nucleated RBC 0.00 x10^3/uL 03/31/18 06:50 Nucleated RBC % 0.0 /100WBC 03/31/18 06:50 PT 13.3 secs (9.9-12.6) H 03/30/18 06:35 INR 1.2 (0.8-1.2) 03/30/18 06:35 Sodium 128 mmol/L (135-145) L 03/31/18 06:50 Potassium 3.5 mmol/L (3.5-5.0) 03/31/18 06:50 Chloride 96 mmol/L (101-111) L 03/31/18 06:50 Carbon Dioxide 22 mmol/L (21-32) 03/31/18 06:50 Anion Gap 10.0 (6-13) 03/31/18 06:50 BUN 9 mg/dL (6-20) 03/31/18 06:50 Creatinine 0.9 mg/dL (0.4-1.0) 03/31/18 06:50 Estimated GFR (MDRD) 63 (>89) L 03/31/18 06:50 Glucose 103 mg/dL (70-100) H 03/31/18 06:50 Glycated Hemoglobin 5.6 % (4.6-6.2) 03/30/18 06:44 Estim Average Glucose 114 (70-100) H 03/30/18 06:44 Lactic Acid 0.6 mmol/L (0.5-2.2) 03/30/18 06:35 Calcium 8.6 mg/dL (8.5-10.3) 03/31/18 06:50 Phosphorus 3.8 mg/dL (2.5-4.6) 03/31/18 06:50 Magnesium 1.8 mg/dL (1.7-2.8) 03/31/18 06:50 Total Bilirubin 0.9 mg/dL (0.2-1.0) 03/31/18 06:50 AST 16 IU/L (10-42) 03/31/18 06:50 ALT 11 IU/L (10-60) 03/31/18 06:50 Alkaline Phosphatase 62 IU/L (42-121) 03/31/18 06:50 Troponin I < 0.04 ng/mL (<0.49) 03/29/18 08:51 Total Protein 6.3 g/dL (6.7-8.2) L 03/31/18 06:50 Albumin 3.4 g/dL (3.2-5.5) 03/31/18 06:50 Globulin 2.9 g/dL (2.1-4.2) 03/31/18 06:50 Albumin/Globulin Ratio 1.2 (1.0-2.2) 03/31/18 06:50 Lipase 16 U/L (22-51) L 03/30/18 06:35 Urine Color YELLOW 03/29/18 11:21 Urine Clarity CLEAR (CLEAR) 03/29/18 11:21 Urine pH 7.0 PH (5.0-7.5) 03/29/18 11:21 Ur Specific [place] 1.010 (1.002-1.030) 03/29/18 11:21 Urine Protein NEGATIVE mg/dL (NEGATIVE) 03/29/18 11:21 Urine Glucose (UA) NEGATIVE mg/dL (NEGATIVE) 06/29/18 11:21 Urine Ketones 15 mg/dL (NEGATIVE) H 03/29/18 11:21 Urine Occult Blood NEGATIVE (NEGATIVE) 03/29/18 11:21 Urine Nitrite NEGATIVE (NEGATIVE) 03/29/18 11:21 Urine Bilirubin NEGATIVE (NEGATIVE) 03/29/18 11:21 Urine Urobilinogen 0.2 (NORMAL) E.U./dL (NORMAL) 03/29/18 11:21 Ur Leukocyte Esterase NEGATIVE (NEGATIVE) 03/29/18 11:21 Ur Microscopic Review NOT INDICATED 03/29/18 11:21 Urine Culture Comments NOT INDICATED 03/29/18 11:21 - Procedures Procedures: Procedures BYPASS DESCENDING COLON TO CUTANEOUS, OPEN APPROACH (09/03/17) EXCISION OF ASCENDING COLON, OPEN APPROACH (09/03/17) EXCISION OF ILEUM, OPEN APPROACH (09/03/17) INSERTION OF INFUSION DEV INTO SUP VENA CAVA, PERC APPROACH (09/03/17) INTRODUCTION OF NUTRITIONAL INTO CENTRAL VEIN, PERC APPROACH (09/03/17) REPAIR SIGMOID COLON, PERCUTANEOUS ENDOSCOPIC APPROACH (02/05/18) RESECTION OF SIGMOID COLON, OPEN APPROACH (09/03/17) RESPIRATORY VENTILATION, GREATER THAN 96 CONSECUTIVE HOURS (09/03/17) TRANSFUSE NONAUT RED BLOOD CELLS IN CENTRAL VEIN, PERC (09/03/17)
[2018-03-31] MEDS ORDERED: POTASSIUM CHLOR 10 MEQ/100 ML 10 MEQ/100 ML BAG IV ONE (18:37)
[2018-03-31] MEDS ORDERED: CYCLOBENZAPRINE 10 MG TABLET PO PRN (18:37)
[2018-03-31] MEDS ORDERED: METOPROLOL TARTRATE 50 MG TABLET PO SCH (21:04)
[2018-03-31] MEDS: NS W/20 MEQ KCL 1,000 ML IV SCH ×2 (22:00→23:47)
[2018-04-01] MEDS: ONDANSETRON 4 MG/2 ML VIAL IVP PRN ×2 (00:27→14:59)
[2018-04-01] MEDS: SODIUM CHLORIDE FLUSH 0.9% 10 ML SYRINGE IVP SCH ×3 (00:27→19:33)
[2018-04-01] MEDS: oxyCODONE 5 MG TABLET PO PRN ×2 (04:59→10:06)
[2018-04-01] MEDS: SODIUM CHLORIDE FLUSH 0.9% 10 ML SYRINGE IVP PRN (06:08)
[2018-04-01] MEDS: PANTOPRAZOLE 40 MG VIAL IVP SCH (06:08)
[2018-04-01 06:37] LABS: BASOPHILS % (AUTO) 0.5 %; EOSINOPHILS # (AUTO) 0.2 10^3/uL (0.0-0.7); EOSINOPHILS % (AUTO) 1.5 %; HGB - HEMOGLOBIN 12.8 g/dL (12.0-16.0); LYMPHOCYTES # (AUTO) 2.8 10^3/uL (1.5-3.5); LYMPHOCYTES % (AUTO) 27.5 %; MEAN CORPUSCULAR HEMOGLOBIN 28.2 pg (27.0-31.0); MEAN CORPUSCULAR HGB CONC 32.3 g/dL (32.0-36.0); MEAN CORPUSCULAR VOLUME 87.2 fL (81.0-99.0); MEAN PLATELET VOLUME 9.6 fL (7.9-10.8); MONOCYTES # (AUTO) 0.8 10^3/uL (0.0-1.0); MONOCYTES % (AUTO) 7.7 %; NEUTROPHILS # (AUTO) 6.5 10^3/uL (1.5-6.6); NEUTROPHILS % (AUTO) 62.8 %; PLT - PLATELET COUNT 258 10^3/uL (130-450); RED BLOOD COUNT 4.54 10^6/uL (4.20-5.40); RED CELL DISTRIBUTION WIDTH 14.9 % (12.0-15.0); WHITE BLOOD COUNT 10.3 x10^3/uL (4.8-10.8)
[2018-04-01 06:54] LABS: ALBUMIN 3.3 g/dL (3.2-5.5); ALBUMIN/GLOBULIN RATIO 1.2 (1.0-2.2); BILIRUBIN,TOTAL 1.1 mg/dL (0.2-1.0); CALCIUM 8.7 mg/dL (8.5-10.3); MAGNESIUM 1.5 mg/dL (1.7-2.8); PHOSPHORUS 3.4 mg/dL (2.5-4.6)
[2018-04-01] MEDS: ENOXAPARIN 40 MG/0.4 ML SYRINGE SUBQ SCH (09:22)
[2018-04-01] MEDS: hydrALAZINE 25 MG TABLET PO SCH ×3 (09:22→16:37)
[2018-04-01] MEDS: MULTIVITAMIN W/MINERALS TABLET PO SCH (09:22)
[2018-04-01] MEDS: LOSARTAN 50 MG TABLET PO SCH (09:23)
[2018-04-01] MEDS: hydroCHLOROthiazide 25 MG TABLET PO SCH (09:23)
[2018-04-01] MEDS: NIFEdipine ER 30 MG TABLET PO SCH (09:57)
[2018-04-01] MEDS: NS W/20 MEQ KCL 1,000 ML IV SCH (09:57)
[2018-04-01] MEDS: MAGNESIUM SULFATE 2 GRAM 2 GM/50 ML BAG IV SCH ×2 (10:07→13:57)
--- NOTE | 2018-04-01 10:21 | PROVIDER PROGRESS NOTE ---
Assessment/Plan - Problem List (1) SBO (small bowel obstruction) Assessment/Plan: Pt to have abdominal imaging with a SBFT today til gastrografin seen in colon. Surgery following and recommend ng tube for drainage. Will change all po meds to iv form. Continue peripheral iv hydration with D5 for some calories. If no po diet for several days, will plan iv tpn. Discussed with Retail Shift Leader, Rosi. (2) Generalized muscle weakness Assessment/Plan: Pt is deconditioned from frequent hospitalizations, and possibly dehydrated. Continue iv fluids. Eventual PT planned. (3) Hyponatremia Assessment/Plan: Na is better, Will continue iv D5NS and stop KCl. - Current Meds Current Meds: Current Medications Generic Name Dose Route Start Last Admin Trade Name Freq PRN Reason Stop Dose Admin Acetaminophen 650 mg 03/29/18 20:38 03/30/18 10:49 Tylenol PO 650 mg Q4HR PRN Administration Pain 1 to 4 Enoxaparin Sodium 40 mg 03/30/18 09:00 04/01/18 09:22 Lovenox SUBQ 40 mg DAILY AMNA Administration Hydralazine HCl 25 mg 03/31/18 21:04 04/01/18 09:22 Apresoline PO 25 mg QID AMNA Administration Hydrochlorothiazide 25 mg 03/30/18 14:00 04/01/18 09:23 Hydrodiuril PO 25 mg DAILY AMNA Administration Potassium Chloride/Sodium Chloride 1,000 mls @ 83.333 mls/hr 03/31/18 11:00 04/01/18 09:57 Normal Saline 0.9% W/20 Meq Kcl IV 83 mls/hr .Q12H AMNA Administration Magnesium Sulfate 2 gm in 50 mls @ 50 mls/hr 04/01/18 09:30 04/01/18 10:07 Magnesium Sulfate IV 04/01/18 11:29 50 mls/hr Q1H AMNA Administration Losartan Potassium 100 mg 03/30/18 21:00 04/01/18 09:23 Cozaar PO 100 mg DAILY AMNA Administration Metoprolol Tartrate 100 mg 03/31/18 21:04 04/01/18 09:22 Lopressor PO 100 mg BID AMNA Administration Morphine Sulfate 4 mg 03/29/18 20:38 03/31/18 04:11 Morphine IVP 4 mg Q2H PRN Administration Pain 8 to 10 Multivitamins/Minerals 1 tab 06/30/18 08:00 04/01/18 09:22 Theragran M PO 1 tab DAILYWM AMNA Administration Nifedipine 30 mg 03/29/18 21:00 04/01/18 09:57 Procardia Xl PO 30 mg DAILY AMNA Administration Ondansetron HCl 4 mg 03/29/18 20:38 04/01/18 00:27 Zofran Inj IVP 4 mg Q6HR PRN Administration Nausea / Vomiting Oxycodone HCl 5 mg 03/29/18 20:38 03/31/18 09:11 Roxicodone PO 5 mg Q4HR PRN Administration Pain 5 to 7 Oxycodone HCl 10 mg 03/29/18 20:38 04/01/18 10:06 Roxicodone PO 10 mg Q4HR PRN Administration Pain 8 to 10 Pantoprazole Sodium 40 mg 03/31/18 11:00 04/01/18 06:08 Protonix IVP 40 mg QDAC AMNA Administration Prochlorperazine Edisylate 10 mg 03/29/18 20:38 03/30/18 21:42 Compazine Inj IVP 10 mg Q6HR PRN Administration Nausea / Vomiting Sodium Chloride 10 ml 03/29/18 20:38 04/01/18 06:08 Normal Saline Flush 0.9% IVP 10 ml PRN PRN Administration NEEDED PER PROVIDER ORDERS Sodium Chloride 10 ml 03/30/18 01:00 04/01/18 06:08 Normal Saline Flush 0.9% IVP 10 ml 0100,0900,1700 AMNA Administration - Lab Result Fish Bone Diagrams: 04/01/18 05:33 04/01/18 05:33 - Additional Planning My Orders: My Active Orders 03/31/18 18:37 Cyclobenzaprine [Flexeril] 5 mg PO TID PRN 04/01/18 09:30 Magnesium Sulfate 2 Gram [Magnesium Sulfate] 2 gm in 50 ml IV Q1H Subjective - Subjective Patient Reports: Other (N/V persist) Nursing Reports: Other ((+) bowel sounds but no BM or flattulence yet) Objective Vital Signs: Vital Signs - 24 hr 03/31/18 03/31/18 04/01/18 15:15 20:00 00:00 Temperature 36.6 C 37.3 C 36.7 C Heart Rate [ 75 87 82 Brachial] Respiratory 20 16 16 Rate Blood Pressure Blood Pressure 114/75 104/82 H 118/76 [Right Brachial artery] O2 Saturation 94 96 96 04/01/18 04/01/18 08:00 09:22 Temperature 36.4 C L Heart Rate [ 94 Brachial] Respiratory 16 Rate Blood Pressure 124/87 H Blood Pressure 124/87 H [Right Brachial artery] O2 Saturation 96 Oxygen O2 Source Room air I&O (Last 24 Hrs): Intake and Output Totals x24h 03/30/18 03/31/18 04/01/18 23:59 23:59 23:59 Intake Total 927.23 1000 Output Total 300 Balance 927.23 700 General: Alert, Oriented x3 HEENT: Mucous membr. moist/pink Neck: Supple, No JVD Neuro: Non Focal Cardiovascular: Regular rate, No murmurs Respiratory: No respiratory distress, Breath sounds nml Abdomen: Normal bowel sounds, Soft Extremities: No edema - Results Results: Laboratory Results WBC 10.3 x10^3/uL (4.8-10.8) 04/01/18 05:33 RBC 4.54 10^6/uL (4.20-5.40) 04/01/18 05:33 Hgb 12.8 g/dL (12.0-16.0) 04/01/18 05:33 Hct 39.6 % (37.0-47.0) 04/01/18 05:33 MCV 87.2 fL (81.0-99.0) 04/01/18 05:33 MCH 28.2 pg (27.0-31.0) 04/01/18 05:33 MCHC 32.3 g/dL (32.0-36.0) 04/01/18 05:33 RDW 14.9 % (12.0-15.0) 04/01/18 05:33 Plt Count 258 10^3/uL (130-450) 04/01/18 05:33 MPV 9.6 fL (7.9-10.8) 04/01/18 05:33 Neut # (Auto) 6.5 10^3/uL (1.5-6.6) 04/01/18 05:33 Lymph # (Auto) 2.8 10^3/uL (1.5-3.5) 04/01/18 05:33 [place] # (Auto) 0.8 10^3/uL (0.0-1.0) 04/01/18 05:33 Eos # (Auto) 0.2 10^3/uL (0.0-0.7) 04/01/18 05:33 Baso # (Auto) 0.0 10^3/uL (0.0-0.1) 04/01/18 05:33 Absolute Nucleated RBC 0.01 x10^3/uL 04/01/18 05:33 Nucleated RBC % 0.1 /100WBC 04/01/18 05:33 PT 13.3 secs (9.9-12.6) H 03/30/18 06:35 INR 1.2 (0.8-1.2) 03/30/18 06:35 Sodium 134 mmol/L (135-145) L 04/01/18 05:33 Potassium 3.7 mmol/L (3.5-5.0) 04/01/18 05:33 Chloride 98 mmol/L (101-111) L 04/01/18 05:33 Carbon Dioxide 21 mmol/L (21-32) 04/01/18 05:33 Anion Gap 15.0 (6-13) H 04/01/18 05:33 BUN 9 mg/dL (6-20) 04/01/18 05:33 Creatinine 1.0 mg/dL (0.4-1.0) 04/01/18 05:33 Estimated GFR (MDRD) 56 (>89) L 04/01/18 05:33 Glucose 76 mg/dL (70-100) 04/01/18 05:33 Glycated Hemoglobin 5.6 % (4.6-6.2) 03/30/18 06:44 Estim Average Glucose 114 (70-100) H 03/30/18 06:44 Lactic Acid 0.6 mmol/L (0.5-2.2) 03/30/18 06:35 Calcium 8.7 mg/dL (8.5-10.3) 04/01/18 05:33 Phosphorus 3.4 mg/dL (2.5-4.6) 04/01/18 05:33 Magnesium 1.5 mg/dL (1.7-2.8) L 04/01/18 05:33 Total Bilirubin 1.1 mg/dL (0.2-1.0) H 04/01/18 05:33 AST 18 IU/L (10-42) 04/01/18 05:33 ALT 11 IU/L (10-60) 04/01/18 05:33 Alkaline Phosphatase 56 IU/L (42-121) 04/01/18 05:33 Troponin I < 0.04 ng/mL (<0.49) 03/29/18 08:51 Total Protein 6.0 g/dL (6.7-8.2) L 04/01/18 05:33 Albumin 3.3 g/dL (3.2-5.5) 04/01/18 05:33 Globulin 2.7 g/dL (2.1-4.2) 04/01/18 05:33 Albumin/Globulin Ratio 1.2 (1.0-2.2) 04/01/18 05:33 Lipase 16 U/L (22-51) L 03/30/18 06:35 Urine Color YELLOW 03/29/18 11:21 Urine Clarity CLEAR (CLEAR) 03/29/18 11:21 Urine pH 7.0 PH (5.0-7.5) 03/29/18 11:21 Ur Specific [place] 1.010 (1.002-1.030) 03/29/18 11:21 Urine Protein NEGATIVE mg/dL (NEGATIVE) 03/29/18 11:21 Urine Glucose (UA) NEGATIVE mg/dL (NEGATIVE) 03/29/18 11:21 Urine Ketones 15 mg/dL (NEGATIVE) H 03/29/18 11:21 Urine Occult Blood NEGATIVE (NEGATIVE) 03/29/18 11:21 Urine Nitrite NEGATIVE (NEGATIVE) 03/29/18 11:21 Urine Bilirubin NEGATIVE (NEGATIVE) 03/29/18 11:21 Urine Urobilinogen 0.2 (NORMAL) E.U./dL (NORMAL) 03/29/18 11:21 Ur Leukocyte Esterase NEGATIVE (NEGATIVE) 03/29/18 11:21 Ur Microscopic Review NOT INDICATED 03/29/18 11:21 Urine Culture Comments NOT INDICATED 03/29/18 11:21 - Procedures Procedures: Procedures BYPASS DESCENDING COLON TO CUTANEOUS, OPEN APPROACH (09/03/17) EXCISION OF ASCENDING COLON, OPEN APPROACH (09/03/17) EXCISION OF ILEUM, OPEN APPROACH (09/03/17) INSERTION OF INFUSION DEV INTO SUP VENA CAVA, PERC APPROACH (09/03/17) INTRODUCTION OF NUTRITIONAL INTO CENTRAL VEIN, PERC APPROACH (09/03/17) REPAIR SIGMOID COLON, PERCUTANEOUS ENDOSCOPIC APPROACH (02/05/18) RESECTION OF SIGMOID COLON, OPEN APPROACH (09/03/17) RESPIRATORY VENTILATION, GREATER THAN 96 CONSECUTIVE HOURS (09/03/17) TRANSFUSE NONAUT RED BLOOD CELLS IN CENTRAL VEIN, PERC (09/03/17) ABX Reporting Has patient been on IV antibiotics over the past 48 hours?: No
[2018-04-01] MEDS ORDERED: MAGNESIUM SULFATE 2 GRAM 2 GM/50 ML BAG IV ONE (10:30)
[2018-04-01] MEDS: MORPHINE 2 MG/ML SYRINGE IVP PRN (14:59)
--- NOTE | 2018-04-01 15:39 | XRAY Report ---
Procedure Date: 04/01/2018 Accession Number: [id number] / [id number] Procedure: [place] - Small Bowel Follow Through CPT Code: FULL RESULT: EXAM: Small Bowel Follow Through DATE: 04/01/2018 3:26 PM CLINICAL HISTORY: abd pain; possible partial SBO TECHNIQUE: Small bowel follow through, performed with Gastrografin. Multiple serial overhead images obtained. No fluoroscopy performed. COMPARISON: Plain films 03/31/2018, CT 03/29/2018 FINDINGS: Initial supervising chef view of the abdomen demonstrates dilated small bowel loops. Stool is seen throughout the colon. The patient ingested Gastrografin. The stomach and proximal small bowel loops are distended. Contrast extends through a few dilated small bowel loops, than the contrast column stops, no forward motion was identified between the one hour and 3 hour films. Examination was discussed with Dr. Vargas at this time, and further overhead films were not planned for 04/01/2018. IMPRESSION: Dilated stomach and proximal small bowel loops, without passage of contrast into more distal small bowel loops in the first 3 hours. Follow-up radiograph on 04/02/2018 may be helpful.
[2018-04-01] MEDS ORDERED: DEXTROSE 5%-0.9% NACL 1,000 ML IV SCH (16:00)
--- NOTE | 2018-04-01 16:33 | PROVIDER PROGRESS NOTE ---
Assessment/Plan - Problem List (1) Abdominal pain Qualifiers: Abdominal location: generalized Qualified Code(s): R10.84 - Generalized abdominal pain Assessment/Plan: Findings are now suggestive of high grade distal SBO rather than ileus. Plan: insert NG tube, continue gastrograffin study over night; if contrast fails to enter the colon after 24 hours, then surgery will likely be necessary to relieve the obstruction. (2) Hyponatremia Assessment/Plan: improving. Continue present therapy. - Current Meds Current Meds: Current Medications Generic Name Dose Route Start Last Admin Trade Name Freq PRN Reason Stop Dose Admin Acetaminophen 650 mg 03/29/18 20:38 03/30/18 10:49 Tylenol PO 650 mg Q4HR PRN Administration Pain 1 to 4 Enoxaparin Sodium 40 mg 03/30/18 09:00 04/01/18 09:22 Lovenox SUBQ 40 mg DAILY AMNA Administration Hydralazine HCl 25 mg 03/31/18 21:04 04/01/18 13:54 Apresoline PO Not Given QID AMNA Losartan Potassium 100 mg 03/30/18 21:00 04/01/18 09:23 Cozaar PO 100 mg DAILY AMNA Administration Metoprolol Tartrate 100 mg 03/31/18 21:04 04/01/18 09:22 Lopressor PO 100 mg BID AMNA Administration Morphine Sulfate 4 mg 03/29/18 20:38 04/01/18 14:59 Morphine IVP 4 mg Q2H PRN Administration Pain 8 to 10 Multivitamins/Minerals 1 tab 03/30/18 08:00 04/01/18 09:22 Theragran M PO 1 tab DAILYWM AMNA Administration Nifedipine 30 mg 03/29/18 21:00 04/01/18 09:57 Procardia Xl PO 30 mg DAILY AMNA Administration Ondansetron HCl 4 mg 03/29/18 20:38 04/01/18 14:59 Zofran Inj IVP 4 mg Q6HR PRN Administration Nausea / Vomiting Oxycodone HCl 5 mg 03/29/18 20:38 03/31/18 09:11 Roxicodone PO 5 mg Q4HR PRN Administration Pain 5 to 7 Oxycodone HCl 10 mg 03/29/18 20:38 04/01/18 10:06 Roxicodone PO 10 mg Q4HR PRN Administration Pain 8 to 10 Pantoprazole Sodium 40 mg 03/31/18 11:00 04/01/18 06:08 Protonix IVP 40 mg QDAC AMNA Administration Prochlorperazine Edisylate 10 mg 03/29/18 20:38 03/30/18 21:42 Compazine Inj IVP 10 mg Q6HR PRN Administration Nausea / Vomiting Sodium Chloride 10 ml 03/29/18 20:38 04/01/18 06:08 Normal Saline Flush 0.9% IVP 10 ml PRN PRN Administration NEEDED PER PROVIDER ORDERS Sodium Chloride 10 ml 03/30/18 01:00 04/01/18 06:08 Normal Saline Flush 0.9% IVP 10 ml 0100,0900,1700 AMNA Administration - Lab Result Lab results reviewed: Yes Fish Bone Diagrams: 04/01/18 05:33 04/01/18 05:33 - Diagnostic Imaging Results Diagnostic Imaging Results: Discussed with radiologist, Read independently Diagnostic Imaging Results Comments: gastrograffin SBFT shows dilated stomach and jejunum with no passage of contrast into colon at 3 hours, suggestive of distal SBO. - Additional Planning Condition/Complexity: Stable My Orders: My Active Orders 04/01/18 16:27 Ng [Insert NG Tube] [RC] ONCE Plan Discussed with:: Patient Time Spent: 15-30 minutes Subjective - Subjective Patient Reports: Abdominal Pain, Nausea (c/o persistent generalized abd pain and nausea but no vomiting, no passage of stool or flatus since admission.) Objective Vital Signs: Vital Signs - 24 hr 03/31/18 04/01/18 04/01/18 20:00 00:00 08:00 Temperature 37.3 C 36.7 C 36.4 C L Heart Rate [ 87 82 94 Brachial] Respiratory 16 16 16 Rate Blood Pressure Blood Pressure 104/82 H 118/76 124/87 H [Right Brachial artery] O2 Saturation 96 96 96 04/01/18 04/01/18 09:22 15:23 Temperature 36.2 C L Heart Rate [ 79 Brachial] Respiratory 16 Rate Blood Pressure 124/87 H Blood Pressure 139/99 H [Right Brachial artery] O2 Saturation 96 Oxygen O2 Source Room air I&O (Last 24 Hrs): Intake and Output Totals x24h 03/30/18 03/31/18 04/01/18 23:59 23:59 23:59 Intake Total 927.23 1050 Output Total 600 Balance 927.23 450 General: Alert, Oriented x3, Cooperative, Moderate distress HEENT: Mucous membr. moist/pink Neck: Supple, No JVD Neuro: Alert Cardiovascular: Regular rate, Normal S1, Normal S2, Gallops, Rubs, Other ( midsystolic murmur.) Respiratory: Chest non-tender, No respiratory distress, Breath sounds nml Abdomen: No tenderness, Other (firm, nontender, mildly distended, hyperactive tympanitic bowel sounds) Extremities: No edema, No tenderness/swelling - Results Results: Laboratory Results WBC 10.3 x10^3/uL (4.8-10.8) 04/01/18 05:33 RBC 4.54 10^6/uL (4.20-5.40) 04/01/18 05:33 Hgb 12.8 g/dL (12.0-16.0) 04/01/18 05:33 Hct 39.6 % (37.0-47.0) 04/01/18 05:33 MCV 87.2 fL (81.0-99.0) 04/01/18 05:33 MCH 28.2 pg (27.0-31.0) 04/01/18 05:33 MCHC 32.3 g/dL (32.0-36.0) 04/01/18 05:33 RDW 14.9 % (12.0-15.0) 04/01/18 05:33 Plt Count 258 10^3/uL (130-450) 04/01/18 05:33 MPV 9.6 fL (7.9-10.8) 04/01/18 05:33 Neut # (Auto) 6.5 10^3/uL (1.5-6.6) 04/01/18 05:33 Lymph # (Auto) 2.8 10^3/uL (1.5-3.5) 04/01/18 05:33 [place] # (Auto) 0.8 10^3/uL (0.0-1.0) 04/01/18 05:33 Eos # (Auto) 0.2 10^3/uL (0.0-0.7) 04/01/18 05:33 Baso # (Auto) 0.0 10^3/uL (0.0-0.1) 04/01/18 05:33 Absolute Nucleated RBC 0.01 x10^3/uL 04/01/18 05:33 Nucleated RBC % 0.1 /100WBC 04/01/18 05:33 PT 13.3 secs (9.9-12.6) H 03/30/18 06:35 INR 1.2 (0.8-1.2) 03/30/18 06:35 Sodium 134 mmol/L (135-145) L 04/01/18 05:33 Potassium 3.7 mmol/L (3.5-5.0) 04/01/18 05:33 Chloride 98 mmol/L (101-111) L 04/01/18 05:33 Carbon Dioxide 21 mmol/L (21-32) 04/01/18 05:33 Anion Gap 15.0 (6-13) H 04/01/18 05:33 BUN 9 mg/dL (6-20) 04/01/18 05:33 Creatinine 1.0 mg/dL (0.4-1.0) 04/01/18 05:33 Estimated GFR (MDRD) 56 (>89) L 04/01/18 05:33 Glucose 76 mg/dL (70-100) 04/01/18 05:33 Glycated Hemoglobin 5.6 % (4.6-6.2) 03/30/18 06:44 Estim Average Glucose 114 (70-100) H 03/30/18 06:44 Lactic Acid 0.6 mmol/L (0.5-2.2) 03/30/18 06:35 Calcium 8.7 mg/dL (8.5-10.3) 04/01/18 05:33 Phosphorus 3.4 mg/dL (2.5-4.6) 04/01/18 05:33 Magnesium 1.5 mg/dL (1.7-2.8) L 04/01/18 05:33 Total Bilirubin 1.1 mg/dL (0.2-1.0) H 04/01/18 05:33 AST 18 IU/L (10-42) 04/01/18 05:33 ALT 11 IU/L (10-60) 04/01/18 05:33 Alkaline Phosphatase 56 IU/L (42-121) 04/01/18 05:33 Troponin I < 0.04 ng/mL (<0.49) 03/29/18 08:51 Total Protein 6.0 g/dL (6.7-8.2) L 04/01/18 05:33 Albumin 3.3 g/dL (3.2-5.5) 04/01/18 05:33 Globulin 2.7 g/dL (2.1-4.2) 04/01/18 05:33 Albumin/Globulin Ratio 1.2 (1.0-2.2) 04/01/18 05:33 Lipase 16 U/L (22-51) L 03/30/18 06:35 Urine Color YELLOW 03/29/18 11:21 Urine Clarity CLEAR (CLEAR) 03/29/18 11:21 Urine pH 7.0 PH (5.0-7.5) 03/29/18 11:21 Ur Specific [place] 1.010 (1.002-1.030) 03/29/18 11:21 Urine Protein NEGATIVE mg/dL (NEGATIVE) 03/29/18 11:21 Urine Glucose (UA) NEGATIVE mg/dL (NEGATIVE) 03/29/18 11:21 Urine Ketones 15 mg/dL (NEGATIVE) H 03/29/18 11:21 Urine Occult Blood NEGATIVE (NEGATIVE) 03/29/18 11:21 Urine Nitrite NEGATIVE (NEGATIVE) 03/29/18 11:21 Urine Bilirubin NEGATIVE (NEGATIVE) 03/29/18 11:21 Urine Urobilinogen 0.2 (NORMAL) E.U./dL (NORMAL) 03/29/18 11:21 Ur Leukocyte Esterase NEGATIVE (NEGATIVE) 03/29/18 11:21 Ur Microscopic Review NOT INDICATED 03/29/18 11:21 Urine Culture Comments NOT INDICATED 03/29/18 11:21 - Procedures Procedures: Procedures BYPASS DESCENDING COLON TO CUTANEOUS, OPEN APPROACH (09/03/17) EXCISION OF ASCENDING COLON, OPEN APPROACH (09/03/17) EXCISION OF ILEUM, OPEN APPROACH (09/03/17) INSERTION OF INFUSION DEV INTO SUP VENA CAVA, PERC APPROACH (09/03/17) INTRODUCTION OF NUTRITIONAL INTO CENTRAL VEIN, PERC APPROACH (09/03/17) REPAIR SIGMOID COLON, PERCUTANEOUS ENDOSCOPIC APPROACH (02/05/18) RESECTION OF SIGMOID COLON, OPEN APPROACH (09/03/17) RESPIRATORY VENTILATION, GREATER THAN 96 CONSECUTIVE HOURS (12/04/17) TRANSFUSE NONAUT RED BLOOD CELLS IN CENTRAL VEIN, PERC (09/03/17) ABX Reporting Has patient been on IV antibiotics over the past 48 hours?: No
[2018-04-01] MEDS ORDERED: ACETAMINOPHEN 1,000 MG/100 ML 100 ML IV PRN (17:18)
[2018-04-01] MEDS: DEXTROSE 5%-0.9% NACL 1,000 ML IV SCH (18:43)
[2018-04-01] MEDS: hydrALAZINE INJ 20 MG/ML VIAL IVP SCH (18:49)
[2018-04-01] MEDS: METOPROLOL 5 MG/5 ML VIAL IVP SCH (19:46)
[2018-04-01] MEDS ORDERED: SODIUM CHLORIDE 0.9% 1,000 ML IV ONE ×2 (19:49→20:38)
--- NOTE | 2018-04-01 20:33 | XRAY Report ---
Procedure Date: 04/01/2018 Accession Number: [id number] / [id number] Procedure: XR - Chest 1 View X-Ray CPT Code: 93062 FULL RESULT: EXAM: CHEST RADIOGRAPHY EXAM DATE: 04/01/2018 08:17 PM. CLINICAL HISTORY: Confirm NGT placement. COMPARISON: 02/10/2018. TECHNIQUE: 1 view. FINDINGS: Lungs/Pleura: No focal opacities evident. No pleural effusion. No pneumothorax. Mediastinum: Heart size is normal. There is a gastric tube with tip in the stomach. Other: None. IMPRESSION: 1. Gastric tube tip in the stomach. RADIA
[2018-04-01] MEDS ORDERED: LORazepam 2 MG/ML VIAL IVP STA (22:54)
[2018-04-02] MEDS: hydrALAZINE INJ 20 MG/ML VIAL IVP SCH ×3 (02:52→18:32)
[2018-04-02] MEDS: DEXTROSE 5%-0.9% NACL 1,000 ML IV SCH ×2 (03:10→13:47)
[2018-04-02] MEDS: cloNIDine 0.1 MG PATCH TOP SCH (05:21)
[2018-04-02] MEDS: METOPROLOL 5 MG/5 ML VIAL IVP SCH ×5 (05:21→23:53)
[2018-04-02] MEDS: MORPHINE 2 MG/ML SYRINGE IVP PRN (05:58)
[2018-04-02] MEDS: SODIUM CHLORIDE FLUSH 0.9% 10 ML SYRINGE IVP PRN ×3 (06:00→18:33)
[2018-04-02 06:02] LABS: BASOPHILS % (AUTO) 0.5 %; EOSINOPHILS # (AUTO) 0.1 10^3/uL (0.0-0.7); EOSINOPHILS % (AUTO) 1.7 %; HGB - HEMOGLOBIN 12.7 g/dL (12.0-16.0); LYMPHOCYTES # (AUTO) 2.5 10^3/uL (1.5-3.5); LYMPHOCYTES % (AUTO) 29.8 %; MEAN CORPUSCULAR HEMOGLOBIN 28.3 pg (27.0-31.0); MEAN CORPUSCULAR HGB CONC 32.9 g/dL (32.0-36.0); MEAN CORPUSCULAR VOLUME 85.8 fL (81.0-99.0); MEAN PLATELET VOLUME 9.2 fL (7.9-10.8); MONOCYTES # (AUTO) 0.6 10^3/uL (0.0-1.0); MONOCYTES % (AUTO) 7.1 %; NEUTROPHILS # (AUTO) 5.1 10^3/uL (1.5-6.6); NEUTROPHILS % (AUTO) 60.9 %; PLT - PLATELET COUNT 239 10^3/uL (130-450); RED BLOOD COUNT 4.49 10^6/uL (4.20-5.40); WHITE BLOOD COUNT 8.4 x10^3/uL (4.8-10.8)
[2018-04-02 06:13] LABS: ALBUMIN 3.2 g/dL (3.2-5.5); ALBUMIN/GLOBULIN RATIO 1.2 (1.0-2.2); ALKALINE PHOSPHATASE 62 IU/L (42-121); ALT ALANINE AMINOTRANSFERASE < 10 IU/L (10-60); AST ASPARTATE AMINOTRANSFERASE 20 IU/L (10-42); BILIRUBIN,TOTAL 0.8 mg/dL (0.2-1.0); BUN - BLOOD UREA NITROGEN 9 mg/dL (6-20); CALCIUM 8.3 mg/dL (8.5-10.3); CARBON DIOXIDE - CO2 26 mmol/L (21-32); CHLORIDE 98 mmol/L (101-111); CREATININE 0.8 mg/dL (0.4-1.0); GFR - MDRD 72 (>89); GLUCOSE 138 mg/dL (70-100); SODIUM 134 mmol/L (135-145); TOTAL PROTEIN 5.9 g/dL (6.7-8.2)
[2018-04-02] MEDS: PANTOPRAZOLE 40 MG VIAL IVP SCH (06:35)
[2018-04-02] MEDS ORDERED: D5NS W/20 MEQ KCL 1,000 ML IV SCH (08:00)
[2018-04-02] MEDS: SODIUM CHLORIDE FLUSH 0.9% 10 ML SYRINGE IVP SCH ×4 (10:13→23:53)
[2018-04-02] MEDS: ENOXAPARIN 40 MG/0.4 ML SYRINGE SUBQ SCH (10:21)
--- NOTE | 2018-04-02 12:18 | XRAY Report ---
Procedure Date: 04/02/2018 Accession Number: [id number] / [id number] Procedure: XR - Abdomen 2 View X-Ray CPT Code: 76510 FULL RESULT: EXAM: Abdomen 2 View X-Ray DATE: 04/02/2018 11:44 AM CLINICAL HISTORY: f/u sbo COMPARISON: Chest x-ray 04/01/2018, films of small bowel follow through 04/01/2018, abdominal films 03/31/2018 TECHNIQUE: 2 views. FINDINGS: Lung Bases: Unremarkable. Bowel Gas Pattern: Persistent dilated proximal small bowel loops, without evidence of contrast retention. Oral contrast is now in the colon. Free Air: None. Other: Removal of nasogastric tube. IMPRESSION: Persistently dilated proximal small bowel loops, but oral contrast does pass through to the colon, excluding a complete small bowel obstruction. Removal of nasogastric tube. RADIA
--- NOTE | 2018-04-02 13:07 | PROVIDER PROGRESS NOTE ---
Subjective - Prog Note Date Prog Note Date: 04/02/18 Prog Note Time: 11:45 - Subjective Pt reports feeling: No change (The patient still complains of vague abdominal discomfort and nausea. She denies any fevers or chills, shortness of breath or chest pain.) Current Medications - Current Medications Current Medications: Active Medications Generic Name Dose Route Start Last Admin Trade Name Freq PRN Reason Stop Dose Admin Clonidine HCl 1 patch 04/02/18 06:00 04/02/18 05:21 [id number] TOP Not Given Q7D AMNA Cyclobenzaprine HCl 5 mg 03/31/18 18:37 Flexeril PO TID PRN Spasms Enoxaparin Sodium 40 mg 03/30/18 09:00 04/02/18 10:21 Lovenox SUBQ 40 mg DAILY AMNA Administration Hydralazine HCl 10 mg 04/01/18 18:00 04/02/18 10:13 Apresoline Inj IVP Not Given Q8H AMNA Dextrose/Sodium Chloride 1,000 mls @ 100 mls/hr 04/01/18 16:42 04/02/18 08:17 D5ns IV Infused .Q10H AMNA Infusion Acetaminophen 100 mls @ 400 mls/hr 04/01/18 17:18 Ofirmev IV Q6HR PRN Pain or Fever > 38C (100.4F) Potassium Chloride/Dextrose/Sod Cl 1,000 mls @ 100 mls/hr 04/02/18 08:00 12/16 08:17 IV 100 mls/hr .Q10H AMNA Administration Metoprolol Tartrate 2.5 mg 04/01/18 18:00 04/02/18 12:18 Lopressor Inj IVP Not Given Q6H AMNA Morphine Sulfate 4 mg 03/29/18 20:38 04/02/18 05:58 Morphine IVP 4 mg Q2H PRN Administration Pain 8 to 10 Ondansetron HCl 4 mg 03/29/18 20:38 04/01/18 14:59 Zofran Inj IVP 4 mg Q6HR PRN Administration Nausea / Vomiting Pantoprazole Sodium 40 mg 03/31/18 11:00 04/02/18 06:35 Protonix IVP 40 mg QDAC AMNA Administration Prochlorperazine Edisylate 10 mg 03/29/18 20:38 03/30/18 21:42 Compazine Inj IVP 10 mg Q6HR PRN Administration Nausea / Vomiting Promethazine HCl 25 mg 03/29/18 20:38 Phenergan Inj IM Q6HR PRN Nausea / Vomiting Sodium Chloride 10 ml 03/29/18 20:38 04/02/18 06:35 Normal Saline Flush 0.9% IVP 10 ml PRN PRN Administration NEEDED PER PROVIDER ORDERS Sodium Chloride 10 ml 03/30/18 01:00 04/02/18 10:13 Normal Saline Flush 0.9% IVP Not Given 0100,0900,1700 AMNA Losartan [Cozaar] 100 mg PO DAILY 06/19/17 Objective - Vital Signs/Intake & Output Reviewed Vital Signs: Yes Vital Signs: Vital Signs x48h Temp Pulse Resp BP BP Pulse Ox 04/02/18 12:18 110/62 04/02/18 10:13 107/77 04/02/18 07:36 36.7 C 102 H 16 107/77 95 04/02/18 05:21 100/72 04/02/18 05:20 36.7 C 94 16 100/72 95 Intake & Output: Intake & Output 03/30/18 03/31/18 04/01/18 04/02/18 23:59 23:59 23:59 23:59 Intake Total 927.23 3160 2905 Output Total 2800 500 Balance 927.23 360 2405 - Objective General Appearance: positive: Alert, Mild distress Eyes Bilateral: positive: Normal inspection, PERRL, EOMI, No lid inflammation, Conjunctivae nml, No scleral icterus ENT: positive: ENT inspection nml, Pharynx nml, No signs of dehydration Neck: positive: Nml inspection, Thyroid nml, No JVD, Trachea midline. negative : Thyromegaly Respiratory: positive: Chest non-tender, No respiratory distress, Breath sounds nml Cardiovascular: positive: Regular rate & rhythm, No murmur, No gallop Abdomen: positive: No organomegaly, No distention, Tenderness. negative: Guarding, Rebound, Mass Back: positive: Nml inspection. negative: CVA tenderness (R), CVA tenderness (L ) Skin: positive: Color nml, No rash, Warm, Dry. negative: Cyanosis Extremities: positive: Non-tender, Full ROM, Nml appearance, No pedal edema Neurologic/Psychiatric: positive: Oriented x3, CN's nml (2-12), Motor nml, Sensation nml, Mood/affect nml - Lab Results Fish Bones: 04/02/18 05:28 04/02/18 05:28 Other Labs: Lab Results x24hrs 04/02/18 04/02/18 04/02/18 Range/Units 11:09 05:28 05:28 WBC 8.4 (4.8-10.8) x10^3/uL RBC 4.49 (4.20-5.40) 10^6/uL Hgb 12.7 (12.0-16.0) g/dL Hct 38.5 (37.0-47.0) % MCV 85.8 (81.0-99.0) fL MCH 28.3 (27.0-31.0) pg MCHC 32.9 (32.0-36.0) g/dL RDW 15.0 (12.0-15.0) % Plt Count 239 (130-450) 10^3/uL MPV 9.2 (7.9-10.8) fL Neut # (Auto) 5.1 (1.5-6.6) 10^3/uL Lymph # (Auto) 2.5 (1.5-3.5) 10^3/uL [place] # (Auto) 0.6 (0.0-1.0) 10^3/uL Eos # (Auto) 0.1 (0.0-0.7) 10^3/uL Baso # (Auto) 0.0 (0.0-0.1) 10^3/uL Absolute Nucleated RBC 0.01 x10^3/uL Nucleated RBC % 0.1 /100WBC Sodium 134 L (135-145) mmol/L Potassium 3.0 L (3.5-5.0) mmol/L Chloride 98 L (101-111) mmol/L Carbon Dioxide 26 (21-32) mmol/L Anion Gap 10.0 (6-13) BUN 9 (6-20) mg/dL Creatinine 0.8 (0.4-1.0) mg/dL Estimated GFR (MDRD) 72 L (>89) Glucose 138 H (70-100) mg/dL POC Whole Bld Glucose 128 H (70 - 100) mg/dL Calcium 8.3 L (8.5-10.3) mg/dL Magnesium 2.0 (1.7-2.8) mg/dL Total Bilirubin 0.8 (0.2-1.0) mg/dL AST 20 (10-42) IU/L ALT < 10 L (10-60) IU/L Alkaline Phosphatase 62 (42-121) IU/L Total Protein 5.9 L (6.7-8.2) g/dL Albumin 3.2 (3.2-5.5) g/dL Globulin 2.7 (2.1-4.2) g/dL Albumin/Globulin Ratio 1.2 (1.0-2.2) - Diagnostic Imaging Diagnostic Imaging Results: positive: Final report reviewed Diagnostic Imaging Comments: EXAM: Abdomen 2 View X-Ray DATE: 04/02/2018 11:44 AM CLINICAL HISTORY: f/u sbo COMPARISON: Chest x-ray 04/01/2018, films of small bowel follow through 04/01/2018, abdominal films 03/31/2018 TECHNIQUE: 2 views. FINDINGS: Lung Bases: Unremarkable. Bowel Gas Pattern: Persistent dilated proximal small bowel loops, without evidence of contrast retention. Oral contrast is now in the colon. Free Air: None. Other: Removal of nasogastric tube. IMPRESSION: Persistently dilated proximal small bowel loops, but oral contrast does pass through to the colon, excluding a complete small bowel obstruction. Removal of nasogastric tube. EXAM: CHEST RADIOGRAPHY EXAM DATE: 04/01/2018 08:17 PM. CLINICAL HISTORY: Confirm NGT placement. COMPARISON: 02/10/2018. TECHNIQUE: 1 view. FINDINGS: Lungs/Pleura: No focal opacities evident. No pleural effusion. No pneumothorax. Mediastinum: Heart size is normal. There is a gastric tube with tip in the stomach. Other: None. IMPRESSION: 1. Gastric tube tip in the stomach. EXAM: Small Bowel Follow Through DATE: 04/01/2018 3:26 PM CLINICAL HISTORY: abd pain; possible partial SBO TECHNIQUE: Small bowel follow through, performed with Gastrografin. Multiple serial overhead images obtained. No fluoroscopy performed. 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 Stool is seen throughout the colon. The patient ingested Gastrografin. The stomach and proximal small bowel loops are distended. Contrast extends through a few dilated small bowel loops, than the contrast column stops, no forward motion was identified between the one hour and 3 hour films. Examination was discussed with Dr. Vargas at this time, and further overhead films were not planned for 04/01/2018. IMPRESSION: Dilated stomach and proximal small bowel loops, without passage of contrast into more distal small bowel loops in the first 3 hours. Follow-up radiograph on 04/02/2018 may be helpful. ABX Reporting Has patient been on IV antibiotics over the past 48 hours?: No Assessment/Plan - Problem List (1) Abdominal pain Impression: We have had several different thoughts regarding etiology of the patient's abdominal pain; we currently believe it is related to a partial small bowel obstruction. Of note is that contrast that was done yesterday is now following all the way through the patient's colon, excluding a complete bowel obstruction. I have discussed the case at length with Dr. Vargas, general surgeon on the case, and he agrees that we should start the patient on clear liquid diet at this time. Qualifiers: Abdominal location: generalized Qualified Code(s): R10.84 - Generalized abdominal pain (2) Hypertension Impression: The patient was initially hypertensive on admission and the addition of hydrochlorothiazide to the patient's home dosing of metoprolol and losartan has been very effective and she is no longer hypertensive.Continue present care. Qualifiers: Hypertension type: unspecified Qualified Code(s): I10 - Essential (primary ) hypertension (3) Hyperglycemia Impression: The patient was slightly hyperglycemic on admission does have occasional hyperglycemic readings however hemoglobin A1c done on admission was 5.6. Continue present care.
--- NOTE | 2018-04-02 18:12 | PROVIDER PROGRESS NOTE ---
Assessment/Plan - Problem List (1) Abdominal pain Qualifiers: Abdominal location: generalized Qualified Code(s): R10.84 - Generalized abdominal pain Assessment/Plan: Appears to have been due to partial SBO, likely due to adhesions from prior surgery; resolving now. Will advance diet as tolerated. (2) Hyponatremia Assessment/Plan: resolving with present management; continue same. (3) SBO (small bowel obstruction) Assessment/Plan: Clinically improving following gastrograffin SBFT; plan advance diet as dmitry, avoid raw vegetables and nuts. - Current Meds Current Meds: Current Medications Generic Name Dose Route Start Last Admin Trade Name Freq PRN Reason Stop Dose Admin Clonidine HCl 1 patch 04/02/18 06:00 04/02/18 05:21 [id number] TOP Not Given Q7D AMNA Enoxaparin Sodium 40 mg 03/30/18 09:00 04/02/18 10:21 Lovenox SUBQ 40 mg DAILY AMNA Administration Hydralazine HCl 10 mg 04/01/18 18:00 04/02/18 10:13 Apresoline Inj IVP Not Given Q8H AMNA Metoprolol Tartrate 2.5 mg 04/01/18 18:00 04/02/18 17:34 Lopressor Inj IVP 2.5 mg Q6H AMNA Administration Morphine Sulfate 4 mg 03/29/18 20:38 04/02/18 05:58 Morphine IVP 4 mg Q2H PRN Administration Pain 8 to 10 Ondansetron HCl 4 mg 03/29/18 20:38 04/01/18 14:59 Zofran Inj IVP 4 mg Q6HR PRN Administration Nausea / Vomiting Pantoprazole Sodium 40 mg 03/31/18 11:00 04/02/18 06:35 Protonix IVP 40 mg QDAC AMNA Administration Prochlorperazine Edisylate 10 mg 03/29/18 20:38 03/30/18 21:42 Compazine Inj IVP 10 mg Q6HR PRN Administration Nausea / Vomiting Sodium Chloride 10 ml 03/29/18 20:38 04/02/18 06:35 Normal Saline Flush 0.9% IVP 10 ml PRN PRN Administration NEEDED PER PROVIDER ORDERS Sodium Chloride 10 ml 03/30/18 01:00 04/02/18 17:36 Normal Saline Flush 0.9% IVP 10 ml 0100,0900,1700 AMNA Administration - Lab Result Lab results reviewed: Yes Fish Bone Diagrams: 04/02/18 05:28 04/02/18 05:28 - Diagnostic Imaging Results Diagnostic Imaging Results: Final report reviewed, Discussed with radiologist, Read independently Diagnostic Imaging Results Comments: 24 plain films show gastrograffin passing into the colon. - Additional Planning Condition/Complexity: Improved My Orders: My Active Orders 04/03/18 Breakfast Full Liquid Diet [DIET] Plan Discussed with:: Patient Time Spent: 15-30 minutes Subjective - Subjective Patient Reports: Feeling Better (passing flatus, no N/V, tolerating clear liquids well so far), Abdominal Pain (markedly improved) Objective Vital Signs: Vital Signs - 24 hr 04/01/18 04/01/18 04/01/18 18:45 18:50 18:55 Temperature Heart Rate [ Apical] Heart Rate [ 89 88 91 Brachial] Respiratory 16 16 17 Rate Blood Pressure Blood Pressure 108/76 102/75 114/86 H [Right Brachial artery] O2 Saturation 95 95 96 04/01/18 04/01/18 04/01/18 19:00 19:15 19:30 Temperature Heart Rate [ Apical] Heart Rate [ 94 88 92 Brachial] Respiratory 16 16 17 Rate Blood Pressure Blood Pressure 121/81 H 107/79 72/56 L [Right Brachial artery] O2 Saturation 97 95 97 04/01/18 04/01/18 04/01/18 19:35 19:39 19:42 Temperature Heart Rate [ Apical] Heart Rate [ 91 91 Brachial] Respiratory 17 18 Rate Blood Pressure Blood Pressure 85/67 L 95/68 95/68 [Right Brachial artery] O2 Saturation 97 99 04/01/18 04/01/18 04/01/18 19:46 19:55 20:25 Temperature Heart Rate [ Apical] Heart Rate [ 90 Brachial] Respiratory 18 Rate Blood Pressure 87/50 L Blood Pressure 119/76 113/87 H [Right Brachial artery] O2 Saturation 100 04/01/18 04/02/18 04/02/18 23:30 00:00 00:39 Temperature 36.5 C 36.6 C Heart Rate [ Apical] Heart Rate [ 99 96 Brachial] Respiratory 16 16 Rate Blood Pressure 97/66 Blood Pressure 101/68 97/66 [Right Brachial artery] O2 Saturation 96 04/02/18 04/02/18 04/02/18 02:40 02:52 05:20 Temperature 36.7 C Heart Rate [ Apical] Heart Rate [ 104 H 94 Brachial] Respiratory 18 16 Rate Blood Pressure 104/71 Blood Pressure 104/71 100/72 [Right Brachial artery] O2 Saturation 95 04/02/18 04/02/18 04/02/18 05:21 07:36 10:13 Temperature 36.7 C Heart Rate [ Apical] Heart Rate [ 102 H Brachial] Respiratory 16 Rate Blood Pressure 100/72 107/77 Blood Pressure 107/77 [Right Brachial artery] O2 Saturation 95 04/02/18 04/02/18 04/02/18 12:18 15:31 17:32 Temperature 36.5 C Heart Rate [ 112 H Apical] Heart Rate [ 105 H 113 H Brachial] Respiratory 16 Rate Blood Pressure 110/62 Blood Pressure 124/83 H 112/83 H [Right Brachial artery] O2 Saturation 96 04/02/18 17:34 Temperature Heart Rate [ Apical] Heart Rate [ Brachial] Respiratory Rate Blood Pressure 112/83 H Blood Pressure [Right Brachial artery] O2 Saturation Oxygen O2 Source Room air I&O (Last 24 Hrs): Intake and Output Totals x24h 03/31/18 04/01/18 04/02/18 23:59 23:59 23:59 Intake Total 927.23 3160 3285 Output Total 2800 600 Balance 927.23 360 2685 General: Alert, Oriented x3, Cooperative, No acute distress Neuro: Alert Abdomen: Normal bowel sounds, Soft, No tenderness, No hepatospenomegaly, No masses, Other (mild distention) - Results Results: Laboratory Results WBC 8.4 x10^3/uL (4.8-10.8) 04/02/18 05:28 RBC 4.49 10^6/uL (4.20-5.40) 04/02/18 05:28 Hgb 12.7 g/dL (12.0-16.0) 04/02/18 05:28 Hct 38.5 % (37.0-47.0) 04/02/18 05:28 MCV 85.8 fL (81.0-99.0) 04/02/18 05:28 MCH 28.3 pg (27.0-31.0) 04/02/18 05:28 MCHC 32.9 g/dL (32.0-36.0) 04/02/18 05:28 RDW 15.0 % (12.0-15.0) 04/02/18 05:28 Plt Count 239 10^3/uL (130-450) 04/02/18 05:28 MPV 9.2 fL (7.9-10.8) 04/02/18 05:28 Neut # (Auto) 5.1 10^3/uL (1.5-6.6) 04/02/18 05:28 Lymph # (Auto) 2.5 10^3/uL (1.5-3.5) 04/02/18 05:28 [place] # (Auto) 0.6 10^3/uL (0.0-1.0) 04/02/18 05:28 Eos # (Auto) 0.1 10^3/uL (0.0-0.7) 04/02/18 05:28 Baso # (Auto) 0.0 10^3/uL (0.0-0.1) 04/02/18 05:28 Absolute Nucleated RBC 0.01 x10^3/uL 04/02/18 05:28 Nucleated RBC % 0.1 /100WBC 04/02/18 05:28 PT 13.3 secs (9.9-12.6) H 03/30/18 06:35 INR 1.2 (0.8-1.2) 03/30/18 06:35 Sodium 134 mmol/L (135-145) L 04/02/18 05:28 Potassium 3.0 mmol/L (3.5-5.0) L 04/02/18 05:28 Chloride 98 mmol/L (101-111) L 04/02/18 05:28 Carbon Dioxide 26 mmol/L (21-32) 04/02/18 05:28 Anion Gap 10.0 (6-13) 04/02/18 05:28 BUN 9 mg/dL (6-20) 04/02/18 05:28 Creatinine 0.8 mg/dL (0.4-1.0) 04/02/18 05:28 Estimated GFR (MDRD) 72 (>89) L 04/02/18 05:28 Glucose 138 mg/dL (70-100) H 04/02/18 05:28 POC Whole Bld Glucose 146 mg/dL (70 - 100) H 04/02/18 17:10 Glycated Hemoglobin 5.6 % (4.6-6.2) 03/30/18 06:44 Estim Average Glucose 114 (70-100) H 03/30/18 06:44 Lactic Acid 0.6 mmol/L (0.5-2.2) 03/30/18 06:35 Calcium 8.3 mg/dL (8.5-10.3) L 04/02/18 05:28 Phosphorus 3.4 mg/dL (2.5-4.6) 04/01/18 05:33 Magnesium 2.0 mg/dL (1.7-2.8) 04/02/18 05:28 Total Bilirubin 0.8 mg/dL (0.2-1.0) 04/02/18 05:28 AST 20 IU/L (10-42) 04/02/18 05:28 ALT < 10 IU/L (10-60) L 04/02/18 05:28 Alkaline Phosphatase 62 IU/L (42-121) 04/02/18 05:28 Troponin I < 0.04 ng/mL (<0.49) 03/29/18 08:51 Total Protein 5.9 g/dL (6.7-8.2) L 04/02/18 05:28 Albumin 3.2 g/dL (3.2-5.5) 04/02/18 05:28 Globulin 2.7 g/dL (2.1-4.2) 04/02/18 05:28 Albumin/Globulin Ratio 1.2 (1.0-2.2) 04/02/18 05:28 Lipase 16 U/L (22-51) L 03/30/18 06:35 Urine Color YELLOW 03/29/18 11:21 Urine Clarity CLEAR (CLEAR) 03/29/18 11:21 Urine pH 7.0 PH (5.0-7.5) 03/29/18 11:21 Ur Specific [place] 1.010 (1.002-1.030) 03/29/18 11:21 Urine Protein NEGATIVE mg/dL (NEGATIVE) 03/29/18 11:21 Urine Glucose (UA) NEGATIVE mg/dL (NEGATIVE) 03/29/18 11:21 Urine Ketones 15 mg/dL (NEGATIVE) H 03/29/18 11:21 Urine Occult Blood NEGATIVE (NEGATIVE) 03/29/18 11:21 Urine Nitrite NEGATIVE (NEGATIVE) 03/29/18 11:21 Urine Bilirubin NEGATIVE (NEGATIVE) 03/29/18 11:21 Urine Urobilinogen 0.2 (NORMAL) E.U./dL (NORMAL) 03/29/18 11:21 Ur Leukocyte Esterase NEGATIVE (NEGATIVE) 03/29/18 11:21 Ur Microscopic Review NOT INDICATED 03/29/18 11:21 Urine Culture Comments NOT INDICATED 03/29/18 11:21 - Procedures Procedures: Procedures BYPASS DESCENDING COLON TO CUTANEOUS, OPEN APPROACH (09/03/17) EXCISION OF ASCENDING COLON, OPEN APPROACH (09/03/17) EXCISION OF ILEUM, OPEN APPROACH (09/03/17) INSERTION OF INFUSION DEV INTO SUP VENA CAVA, PERC APPROACH (09/03/17) INTRODUCTION OF NUTRITIONAL INTO CENTRAL VEIN, PERC APPROACH (09/03/17) REPAIR SIGMOID COLON, PERCUTANEOUS ENDOSCOPIC APPROACH (02/05/18) RESECTION OF SIGMOID COLON, OPEN APPROACH (09/03/17) RESPIRATORY VENTILATION, GREATER THAN 96 CONSECUTIVE HOURS (09/03/17) TRANSFUSE NONAUT RED BLOOD CELLS IN CENTRAL VEIN, PERC (09/03/17) ABX Reporting Has patient been on IV antibiotics over the past 48 hours?: No
[2018-04-02] MEDS ORDERED: POTASSIUM CHLORIDE 20 MEQ/15 ML UDC PO ONE (20:00)
[2018-04-03] MEDS: SODIUM CHLORIDE FLUSH 0.9% 10 ML SYRINGE IVP PRN ×4 (00:04→07:07)
[2018-04-03] MEDS: hydrALAZINE INJ 20 MG/ML VIAL IVP SCH (02:21)
[2018-04-03] MEDS: SODIUM CHLORIDE FLUSH 0.9% 10 ML SYRINGE IVP SCH ×3 (06:00→23:48)
[2018-04-03] MEDS: PANTOPRAZOLE 40 MG VIAL IVP SCH (06:00)
[2018-04-03 06:20] LABS: BASOPHILS # (AUTO) 0.1 10^3/uL (0.0-0.1); BASOPHILS % (AUTO) 0.8 %; EOSINOPHILS # (AUTO) 0.1 10^3/uL (0.0-0.7); EOSINOPHILS % (AUTO) 1.5 %; HGB - HEMOGLOBIN 12.8 g/dL (12.0-16.0); LYMPHOCYTES # (AUTO) 2.3 10^3/uL (1.5-3.5); MEAN CORPUSCULAR HGB CONC 32.4 g/dL (32.0-36.0); MEAN CORPUSCULAR VOLUME 86.6 fL (81.0-99.0); MEAN PLATELET VOLUME 9.2 fL (7.9-10.8); MONOCYTES # (AUTO) 0.6 10^3/uL (0.0-1.0); MONOCYTES % (AUTO) 6.6 %; NEUTROPHILS # (AUTO) 5.8 10^3/uL (1.5-6.6); NEUTROPHILS % (AUTO) 65.1 %; PLT - PLATELET COUNT 215 10^3/uL (130-450); RED BLOOD COUNT 4.58 10^6/uL (4.20-5.40); RED CELL DISTRIBUTION WIDTH 15.1 % (12.0-15.0); WHITE BLOOD COUNT 8.8 x10^3/uL (4.8-10.8)
[2018-04-03 06:35] LABS: ALBUMIN/GLOBULIN RATIO 1.2 (1.0-2.2); BILIRUBIN,TOTAL 0.8 mg/dL (0.2-1.0); CALCIUM 8.2 mg/dL (8.5-10.3); CREATININE 0.5 mg/dL (0.4-1.0); MAGNESIUM 1.6 mg/dL (1.7-2.8); TOTAL PROTEIN 5.6 g/dL (6.7-8.2)
[2018-04-03] MEDS: METOPROLOL 5 MG/5 ML VIAL IVP SCH (07:06)
[2018-04-03] MEDS ORDERED: MAGNESIUM SULFATE 2 GRAM 2 GM/50 ML BAG IV ONE (08:00)
[2018-04-03] MEDS: POTASSIUM CHLORIDE 20 MEQ TABLET PO SCH ×2 (08:23→19:14)
[2018-04-03] MEDS: cloNIDine 0.1 MG PATCH TOP SCH (08:34)
[2018-04-03] MEDS: ENOXAPARIN 40 MG/0.4 ML SYRINGE SUBQ SCH (08:36)
[2018-04-03] MEDS: D5.45NS W/20 MEQ KCL 1,000 ML IV SCH ×2 (08:37→19:14)
--- NOTE | 2018-04-03 08:45 | PROVIDER PROGRESS NOTE ---
Assessment/Plan - Problem List (1) Abdominal pain Qualifiers: Abdominal location: generalized Qualified Code(s): R10.84 - Generalized abdominal pain Assessment/Plan: due to partial SBO, resolved. (2) SBO (small bowel obstruction) Assessment/Plan: Resolving. Plan: advance diet to low residue, hopefully home tomorrow if continues to improve. (3) Hypokalemia Assessment/Plan: Likely due to N/V; needs replacement. - Current Meds Current Meds: Current Medications Generic Name Dose Route Start Last Admin Trade Name Freq PRN Reason Stop Dose Admin Clonidine HCl 1 patch 04/02/18 06:00 04/03/18 08:34 [id number] TOP 1 patch Q7D AMNA Administration Enoxaparin Sodium 40 mg 03/30/18 09:00 04/03/18 08:36 Lovenox SUBQ 40 mg DAILY AMNA Administration Hydralazine HCl 10 mg 04/01/18 18:00 04/03/18 02:21 Apresoline Inj IVP 10 mg Q8H AMNA Administration Magnesium Sulfate 2 gm in 50 mls @ 50 mls/hr 04/03/18 08:00 04/03/18 08:38 Magnesium Sulfate IV 04/03/18 08:59 50 mls/hr ONCE ONE Administration Potassium Chloride/Dextrose/Sod Cl 1,000 mls @ 125 mls/hr 04/03/18 08:00 01/16 08:37 D5.45ns W/20 Meq Kcl IV 125 mls/hr .Q8H AMNA Administration Metoprolol Tartrate 2.5 mg 04/01/18 18:00 04/03/18 07:06 Lopressor Inj IVP 2.5 mg Q6H AMNA Administration Morphine Sulfate 4 mg 03/29/18 20:38 04/02/18 05:58 Morphine IVP 4 mg Q2H PRN Administration Pain 8 to 10 Ondansetron HCl 4 mg 03/29/18 20:38 04/01/18 14:59 Zofran Inj IVP 4 mg Q6HR PRN Administration Nausea / Vomiting Pantoprazole Sodium 40 mg 03/31/18 11:00 04/03/18 06:00 Protonix IVP 40 mg QDAC AMNA Administration Potassium Chloride 20 meq 04/03/18 08:00 04/03/18 08:23 K-Dur PO 20 meq BIDWM AMNA Administration Prochlorperazine Edisylate 10 mg 03/29/18 20:38 03/30/18 21:42 Compazine Inj IVP 10 mg Q6HR PRN Administration Nausea / Vomiting Sodium Chloride 10 ml 03/29/18 20:38 04/03/18 07:07 Normal Saline Flush 0.9% IVP 10 ml PRN PRN Administration NEEDED PER PROVIDER ORDERS Sodium Chloride 10 ml 03/30/18 01:00 04/03/18 06:00 Normal Saline Flush 0.9% IVP 10 ml 0100,[id number],1700 AMNA Administration - Lab Result Lab results reviewed: Yes Fish Bone Diagrams: 04/03/18 06:00 04/03/18 06:00 - Diagnostic Imaging Results Diagnostic Imaging Results: Final report reviewed, Read contemporaneously Diagnostic Imaging Results Comments: plain films show resolving SBO - Additional Planning Condition/Complexity: Improved My Orders: My Active Orders 04/03/18 Breakfast Full Liquid Diet [DIET] Subjective - Subjective Patient Reports: Feeling Better (no N/V, passed 3 bm's since last night; abd pain resolved; tired; tolerating liquid diet well.), Resting Comfortably Objective Vital Signs: Vital Signs - 24 hr 04/02/18 04/02/18 04/02/18 10:13 12:18 15:31 Temperature 36.5 C Heart Rate [ Apical] Heart Rate [ 105 H Brachial] Respiratory 16 Rate Blood Pressure 107/77 110/62 Blood Pressure [Left Brachial artery] Blood Pressure 124/83 H [Right Brachial artery] O2 Saturation 96 04/02/18 04/02/18 04/02/18 17:32 17:34 18:22 Temperature Heart Rate [ 112 H Apical] Heart Rate [ 113 H 98 Brachial] Respiratory Rate Blood Pressure 112/83 H Blood Pressure [Left Brachial artery] Blood Pressure 112/83 H 124/85 H [Right Brachial artery] O2 Saturation 04/02/18 04/02/18 04/02/18 18:23 18:32 19:35 Temperature Heart Rate [ Apical] Heart Rate [ 96 102 H Brachial] Respiratory 16 Rate Blood Pressure 123/90 H Blood Pressure 123/90 H [Left Brachial artery] Blood Pressure 106/74 [Right Brachial artery] O2 Saturation 97 07/03/18 07/03/18 07/04/18 23:48 23:53 00:05 Temperature 37.0 C Heart Rate [ Apical] Heart Rate [ 125 H 104 H Brachial] Respiratory 16 Rate Blood Pressure 112/91 H Blood Pressure [Left Brachial artery] Blood Pressure 112/91 H 124/84 H [Right Brachial artery] O2 Saturation 94 97 04/03/18 04/03/18 04/03/18 00:11 00:18 00:33 Temperature Heart Rate [ Apical] Heart Rate [ 106 H 106 H 105 H Brachial] Respiratory Rate Blood Pressure Blood Pressure [Left Brachial artery] Blood Pressure 103/83 H 103/84 H 106/85 H [Right Brachial artery] O2 Saturation 95 95 04/03/18 04/03/18 04/03/18 00:45 01:00 02:21 Temperature Heart Rate [ Apical] Heart Rate [ 103 H 108 H Brachial] Respiratory Rate Blood Pressure 112/80 Blood Pressure [Left Brachial artery] Blood Pressure 111/80 105/80 [Right Brachial artery] O2 Saturation 04/03/18 04/03/18 04/03/18 02:25 02:31 02:36 Temperature Heart Rate [ 110 H Apical] Heart Rate [ 109 H 109 H Brachial] Respiratory 16 Rate Blood Pressure Blood Pressure [Left Brachial artery] Blood Pressure 112/80 92/71 102/70 [Right Brachial artery] O2 Saturation 04/03/18 04/03/18 04/03/18 02:42 02:47 03:00 Temperature Heart Rate [ Apical] Heart Rate [ 113 H 114 H 116 H Brachial] Respiratory Rate Blood Pressure Blood Pressure [Left Brachial artery] Blood Pressure 114/80 116/75 99/74 [Right Brachial artery] O2 Saturation 96 95 04/03/18 04/03/18 04/03/18 03:15 03:30 06:13 Temperature Heart Rate [ Apical] Heart Rate [ 115 H 113 H 121 H Brachial] Respiratory 16 16 Rate Blood Pressure Blood Pressure [Left Brachial artery] Blood Pressure 110/74 104/76 106/67 [Right Brachial artery] O2 Saturation 95 95 04/03/18 04/03/18 04/03/18 07:06 07:07 07:13 Temperature Heart Rate [ Apical] Heart Rate [ 120 H 102 H Brachial] Respiratory 16 Rate Blood Pressure 105/85 H Blood Pressure 105/85 H 111/77 [Left Brachial artery] Blood Pressure [Right Brachial artery] O2 Saturation 04/03/18 07:15 Temperature Heart Rate [ 100 Apical] Heart Rate [ Brachial] Respiratory Rate Blood Pressure Blood Pressure 110/78 [Left Brachial artery] Blood Pressure [Right Brachial artery] O2 Saturation Oxygen O2 Source Room air I&O (Last 24 Hrs): Intake and Output Totals x24h 04/01/18 04/02/18 04/03/18 23:59 23:59 23:59 Intake Total 3160 4435 440 Output Total 2800 800 401 Balance 360 3635 39 General: Alert, Oriented x3, Cooperative HEENT: Mucous membr. moist/pink Neck: Supple, No JVD Neuro: Alert Cardiovascular: Regular rate, Normal S1, Normal S2, Gallops, Rubs Respiratory: Chest non-tender, No respiratory distress, Breath sounds nml Abdomen: Soft, No tenderness, No hepatospenomegaly, No masses, Other (mild distention, hyperactive bowel tones but no rushes, less tympanitic) - Results Results: Laboratory Results WBC 8.8 x10^3/uL (4.8-10.8) 04/03/18 06:00 RBC 4.58 10^6/uL (4.20-5.40) 04/03/18 06:00 Hgb 12.8 g/dL (12.0-16.0) 04/03/18 06:00 Hct 39.6 % (37.0-47.0) 04/03/18 06:00 MCV 86.6 fL (81.0-99.0) 04/03/18 06:00 MCH 28.0 pg (27.0-31.0) 04/03/18 06:00 MCHC 32.4 g/dL (32.0-36.0) 04/03/18 06:00 RDW 15.1 % (12.0-15.0) H 04/03/18 06:00 Plt Count 215 10^3/uL (130-450) 04/03/18 06:00 MPV 9.2 fL (7.9-10.8) 04/03/18 06:00 Neut # (Auto) 5.8 10^3/uL (1.5-6.6) 04/03/18 06:00 Lymph # (Auto) 2.3 10^3/uL (1.5-3.5) 04/03/18 06:00 [place] # (Auto) 0.6 10^3/uL (0.0-1.0) 04/03/18 06:00 Eos # (Auto) 0.1 10^3/uL (0.0-0.7) 04/03/18 06:00 Baso # (Auto) 0.1 10^3/uL (0.0-0.1) 04/03/18 06:00 Absolute Nucleated RBC 0.01 x10^3/uL 04/03/18 06:00 Nucleated RBC % 0.1 /100WBC 04/03/18 06:00 PT 13.3 secs (9.9-12.6) H 03/30/18 06:35 INR 1.2 (0.8-1.2) 03/30/18 06:35 Sodium 135 mmol/L (135-145) 04/03/18 06:00 Potassium 2.7 mmol/L (3.5-5.0) L 04/03/18 06:00 Chloride 101 mmol/L (101-111) 04/03/18 06:00 Carbon Dioxide 25 mmol/L (21-32) 04/03/18 06:00 Anion Gap 9.0 (6-13) 04/03/18 06:00 BUN 5 mg/dL (6-20) L 04/03/18 06:00 Creatinine 0.5 mg/dL (0.4-1.0) 04/03/18 06:00 Estimated GFR (MDRD) 124 (>89) 04/03/18 06:00 Glucose 117 mg/dL (70-100) H 04/03/18 06:00 POC Whole Bld Glucose 129 mg/dL (70 - 100) H 04/03/18 07:58 Glycated Hemoglobin 5.6 % (4.6-6.2) 03/30/18 06:44 Estim Average Glucose 114 (70-100) H 03/30/18 06:44 Lactic Acid 0.6 mmol/L (0.5-2.2) 03/30/18 06:35 Calcium 8.2 mg/dL (8.5-10.3) L 04/03/18 06:00 Phosphorus 3.4 mg/dL (2.5-4.6) 04/01/18 05:33 Magnesium 1.6 mg/dL (1.7-2.8) L 04/03/18 06:00 Total Bilirubin 0.8 mg/dL (0.2-1.0) 04/03/18 06:00 AST 21 IU/L (10-42) 04/03/18 06:00 ALT 11 IU/L (10-60) 04/03/18 06:00 Alkaline Phosphatase 58 IU/L (42-121) 04/03/18 06:00 Troponin I < 0.04 ng/mL (<0.49) 03/29/18 08:51 Total Protein 5.6 g/dL (6.7-8.2) L 04/03/18 06:00 Albumin 3.0 g/dL (3.2-5.5) L 04/03/18 06:00 Globulin 2.6 g/dL (2.1-4.2) 04/03/18 06:00 Albumin/Globulin Ratio 1.2 (1.0-2.2) 04/03/18 06:00 Lipase 16 U/L (22-51) L 03/30/18 06:35 Urine Color YELLOW 03/29/18 11:21 Urine Clarity CLEAR (CLEAR) 03/29/18 11:21 Urine pH 7.0 PH (5.0-7.5) 03/29/18 11:21 Ur Specific [place] 1.010 (1.002-1.030) 03/29/18 11:21 Urine Protein NEGATIVE mg/dL (NEGATIVE) 03/29/18 11:21 Urine Glucose (UA) NEGATIVE mg/dL (NEGATIVE) 03/29/18 11:21 Urine Ketones 15 mg/dL (NEGATIVE) H 03/29/18 11:21 Urine Occult Blood NEGATIVE (NEGATIVE) 03/29/18 11:21 Urine Nitrite NEGATIVE (NEGATIVE) 03/29/18 11:21 Urine Bilirubin NEGATIVE (NEGATIVE) 03/29/18 11:21 Urine Urobilinogen 0.2 (NORMAL) E.U./dL (NORMAL) 03/29/18 11:21 Ur Leukocyte Esterase NEGATIVE (NEGATIVE) 03/29/18 11:21 Ur Microscopic Review NOT INDICATED 03/29/18 11:21 Urine Culture Comments NOT INDICATED 03/29/18 11:21 - Procedures Procedures: Procedures BYPASS DESCENDING COLON TO CUTANEOUS, OPEN APPROACH (09/03/17) EXCISION OF ASCENDING COLON, OPEN APPROACH (09/03/17) EXCISION OF ILEUM, OPEN APPROACH (09/03/17) INSERTION OF INFUSION DEV INTO SUP VENA CAVA, PERC APPROACH (09/03/17) INTRODUCTION OF NUTRITIONAL INTO CENTRAL VEIN, PERC APPROACH (09/03/17) REPAIR SIGMOID COLON, PERCUTANEOUS ENDOSCOPIC APPROACH (02/05/18) RESECTION OF SIGMOID COLON, OPEN APPROACH (09/03/17) RESPIRATORY VENTILATION, GREATER THAN 96 CONSECUTIVE HOURS (09/03/17) TRANSFUSE NONAUT RED BLOOD CELLS IN CENTRAL VEIN, PERC (09/03/17) ABX Reporting Has patient been on IV antibiotics over the past 48 hours?: No
[2018-04-03] MEDS: POTASSIUM CHLOR 10 MEQ/100 ML 10 MEQ/100 ML BAG IV SCH ×3 (09:22→12:51)
[2018-04-03] MEDS: METOPROLOL TARTRATE 50 MG TABLET PO SCH ×3 (09:34→21:46)
[2018-04-03] MEDS: LOSARTAN 50 MG TABLET PO SCH (11:01)
--- NOTE | 2018-04-03 14:05 | PROVIDER PROGRESS NOTE ---
Subjective - Prog Note Date Prog Note Date: 04/03/18 Prog Note Time: 11:35 - Subjective Pt reports feeling: Improved Subjective: The patient was able to tolerate a low residue diet today, with a minimal amount of nausea associated and no vomiting. She denies any fevers, chills, shortness of breath, or chest pain. Current Medications - Current Medications Current Medications: Active Medications Generic Name Dose Route Start Last Admin Trade Name Freq PRN Reason Stop Dose Admin Clonidine HCl 1 patch 04/02/18 06:00 04/03/18 08:34 [id number] TOP 1 patch Q7D AMNA Administration Cyclobenzaprine HCl 5 mg 03/31/18 18:37 Flexeril PO TID PRN Spasms Enoxaparin Sodium 40 mg 03/30/18 09:00 04/03/18 08:36 Lovenox SUBQ 40 mg DAILY AMNA Administration Acetaminophen 100 mls @ 400 mls/hr 04/01/18 17:18 Ofirmev IV Q6HR PRN Pain or Fever > 38C (100.4F) Potassium Chloride/Dextrose/Sod Cl 1,000 mls @ 125 mls/hr 04/03/18 08:00 01/16 08:37 D5.45ns W/20 Meq Kcl IV 125 mls/hr .Q8H AMNA Administration Losartan Potassium 100 mg 04/03/18 11:00 04/03/18 11:01 Cozaar PO 100 mg DAILY AMNA Administration Metoprolol Tartrate 100 mg 04/03/18 10:00 04/03/18 09:34 Lopressor PO 100 mg BID AMNA Administration Morphine Sulfate 4 mg 03/29/18 20:38 04/02/18 05:58 Morphine IVP 4 mg Q2H PRN Administration Pain 8 to 10 Ondansetron HCl 4 mg 03/29/18 20:38 04/01/18 14:59 Zofran Inj IVP 4 mg Q6HR PRN Administration Nausea / Vomiting Pantoprazole Sodium 40 mg 03/31/18 11:00 04/03/18 06:00 Protonix IVP 40 mg QDAC AMNA Administration Potassium Chloride 20 meq 04/03/18 08:00 04/03/18 08:23 K-Dur PO 20 meq BIDWM AMNA Administration Prochlorperazine Edisylate 10 mg 03/29/18 20:38 03/30/18 21:42 Compazine Inj IVP 10 mg Q6HR PRN Administration Nausea / Vomiting Promethazine HCl 25 mg 03/29/18 20:38 Phenergan Inj IM Q6HR PRN Nausea / Vomiting Sodium Chloride 10 ml 03/29/18 20:38 04/03/18 07:07 Normal Saline Flush 0.9% IVP 10 ml PRN PRN Administration NEEDED PER PROVIDER ORDERS Sodium Chloride 10 ml 03/30/18 01:00 04/03/18 06:00 Normal Saline Flush 0.9% IVP 10 ml 0100,0900,1700 AMNA Administration Losartan [Cozaar] 100 mg PO DAILY 06/19/17 Objective - Vital Signs/Intake & Output Reviewed Vital Signs: Yes Vital Signs: Vital Signs x48h Pulse Pulse Resp BP BP BP 04/03/18 09:15 96 110/60 04/03/18 07:15 100 110/78 04/03/18 07:13 102 H 111/77 04/03/18 07:07 120 H 16 105/85 H 04/03/18 07:06 105/85 H 04/03/18 06:13 121 H 106/67 Intake & Output: Intake & Output 03/31/18 04/01/18 04/02/18 04/03/18 23:59 23:59 23:59 23:59 Intake Total 927.23 3160 4435 1650 Output Total 2800 800 401 Balance 927.23 360 3635 1249 - Objective General Appearance: positive: No acute distress, Alert Eyes Bilateral: positive: Normal inspection, PERRL, EOMI, No lid inflammation, Conjunctivae nml, No scleral icterus ENT: positive: ENT inspection nml, Pharynx nml, No signs of dehydration Neck: positive: Nml inspection, Thyroid nml, No JVD, Trachea midline. negative : Thyromegaly Respiratory: positive: Chest non-tender, No respiratory distress, Breath sounds nml. negative: Wheezes, Rales, Rhonchi Cardiovascular: positive: Regular rate & rhythm, No murmur, No gallop Abdomen: positive: Non-tender, No organomegaly, Nml bowel sounds, No distention. negative: Guarding, Rebound Back: positive: Nml inspection. negative: CVA tenderness (R), CVA tenderness (L ) Skin: positive: Color nml, No rash, Warm, Dry. negative: Cyanosis Extremities: positive: Non-tender, Full ROM, Nml appearance, No pedal edema Neurologic/Psychiatric: positive: Oriented x3, CN's nml (2-12), Motor nml, Sensation nml, Mood/affect nml - Lab Results Fish Bones: 04/03/18 06:00 04/03/18 06:00 Other Labs: Lab Results x24hrs 04/03/18 04/03/18 04/03/18 Range/Units 11:04 07:58 06:00 WBC (4.8-10.8) x10^3/uL RBC (4.20-5.40) 10^6/uL Hgb (12.0-16.0) g/dL Hct (37.0-47.0) % MCV (81.0-99.0) fL MCH (27.0-31.0) pg MCHC (32.0-36.0) g/dL RDW (12.0-15.0) % Plt Count (130-450) 10^3/uL MPV (7.9-10.8) fL Neut # (Auto) (1.5-6.6) 10^3/uL Lymph # (Auto) (1.5-3.5) 10^3/uL [place] # (Auto) (0.0-1.0) 10^3/uL Eos # (Auto) (0.0-0.7) 10^3/uL Baso # (Auto) (0.0-0.1) 10^3/uL Absolute Nucleated RBC x10^3/uL Nucleated RBC % /100WBC Sodium 135 (135-145) mmol/L Potassium 2.7 L (3.5-5.0) mmol/L Chloride 101 (101-111) mmol/L Carbon Dioxide 25 (21-32) mmol/L Anion Gap 9.0 (6-13) BUN 5 L (6-20) mg/dL Creatinine 0.5 (0.4-1.0) mg/dL Estimated GFR (MDRD) 124 (>89) Glucose 117 H (70-100) mg/dL POC Whole Bld Glucose 135 H 129 H (70 - 100) mg/dL Calcium 8.2 L (8.5-10.3) mg/dL Magnesium 1.6 L (1.7-2.8) mg/dL Total Bilirubin 0.8 (0.2-1.0) mg/dL AST 21 (10-42) IU/L ALT 11 (10-60) IU/L Alkaline Phosphatase 58 (42-121) IU/L Total Protein 5.6 L (6.7-8.2) g/dL Albumin 3.0 L (3.2-5.5) g/dL Globulin 2.6 (2.1-4.2) g/dL Albumin/Globulin Ratio 1.2 (1.0-2.2) 04/03/18 04/02/18 Range/Units 06:00 17:10 WBC 8.8 (4.8-10.8) x10^3/uL RBC 4.58 (4.20-5.40) 10^6/uL Hgb 12.8 (12.0-16.0) g/dL Hct 39.6 (37.0-47.0) % MCV 86.6 (81.0-99.0) fL MCH 28.0 (27.0-31.0) pg MCHC 32.4 (32.0-36.0) g/dL RDW 15.1 H (12.0-15.0) % Plt Count 215 (130-450) 10^3/uL MPV 9.2 (7.9-10.8) fL Neut # (Auto) 5.8 (1.5-6.6) 10^3/uL Lymph # (Auto) 2.3 (1.5-3.5) 10^3/uL [place] # (Auto) 0.6 (0.0-1.0) 10^3/uL Eos # (Auto) 0.1 (0.0-0.7) 10^3/uL Baso # (Auto) 0.1 (0.0-0.1) 10^3/uL Absolute Nucleated RBC 0.01 x10^3/uL Nucleated RBC % 0.1 /100WBC Sodium (135-145) mmol/L Potassium (3.5-5.0) mmol/L Chloride (101-111) mmol/L Carbon Dioxide (21-32) mmol/L Anion Gap (6-13) BUN (6-20) mg/dL Creatinine (0.4-1.0) mg/dL Estimated GFR (MDRD) (>89) Glucose (70-100) mg/dL POC Whole Bld Glucose 146 H (70 - 100) mg/dL Calcium (8.5-10.3) mg/dL Magnesium (1.7-2.8) mg/dL Total Bilirubin (0.2-1.0) mg/dL AST (10-42) IU/L ALT (10-60) IU/L Alkaline Phosphatase (42-121) IU/L Total Protein (6.7-8.2) g/dL Albumin (3.2-5.5) g/dL Globulin (2.1-4.2) g/dL Albumin/Globulin Ratio (1.0-2.2) ABX Reporting Has patient been on IV antibiotics over the past 48 hours?: No Assessment/Plan - Problem List (1) Abdominal pain Impression: Patient's abdominal pain appears to have been secondary to a partial small bowel obstruction which is resolving. She is able tolerate a meal of low residue diet earlier today without any vomiting and a minimal amount of nausea. We will watch the patient overnight and if she remains stable we will discharge her tomorrow. Qualifiers: Abdominal location: generalized Qualified Code(s): R10.84 - Generalized abdominal pain (2) Hypertension Impression: The patient was actually hypotensive earlier today and I believe that was secondary to dehydration. I have restarted her on maintenance fluids and her blood pressure is now within normal limits. Continue present care. Qualifiers: Hypertension type: unspecified Qualified Code(s): I10 - Essential (primary ) hypertension (3) Tachycardia Impression: The patient was tachycardic yesterday and earlier today. I believe that the problem is twofold, namely the patient is dehydrated and after restarting her maintenance fluids she is no longer tachycardic. A second issue at play here is that the patient had been on metoprolol 100 mg twice a day as an outpatient but was switched to 2.5 mg IV every 6 hours because she was n.p.o. on admission. I have restarted her back on her oral medications and am giving her fluids and her heart rate is currently at 90. We will continue to monitor. (4) Hypokalemia Impression: The patient's potassium level keeps dropping, etiology unknown but suspect this is related to NG tube suctioning. I will replace with both IV administration and oral administration and monitor daily.
[2018-04-03] MEDS: ONDANSETRON 4 MG/2 ML VIAL IVP PRN (19:14)
[2018-04-03] MEDS: MORPHINE 2 MG/ML SYRINGE IVP PRN (23:40)
[2018-04-03] MEDS: PROCHLORPERAZINE 10 MG/2 ML VIAL IVP PRN (23:41)
[2018-04-04] MEDS: D5.45NS W/20 MEQ KCL 1,000 ML IV SCH ×2 (03:07→08:27)
[2018-04-04] MEDS: SODIUM CHLORIDE FLUSH 0.9% 10 ML SYRINGE IVP PRN (06:36)
[2018-04-04] MEDS: PANTOPRAZOLE 40 MG VIAL IVP SCH (06:36)
[2018-04-04 08:04] VITALS: BP 115/73
[2018-04-04 08:17] LABS: HGB - HEMOGLOBIN 12.3 g/dL (12.0-16.0); MEAN CORPUSCULAR HEMOGLOBIN 28.2 pg (27.0-31.0); MEAN CORPUSCULAR HGB CONC 31.8 g/dL (32.0-36.0); MEAN CORPUSCULAR VOLUME 88.6 fL (81.0-99.0); MEAN PLATELET VOLUME 9.7 fL (7.9-10.8); RED BLOOD COUNT 4.36 10^6/uL (4.20-5.40); RED CELL DISTRIBUTION WIDTH 15.1 % (12.0-15.0); WHITE BLOOD COUNT 7.2 x10^3/uL (4.8-10.8)
[2018-04-04] MEDS: LOSARTAN 50 MG TABLET PO SCH (08:24)
[2018-04-04] MEDS: POTASSIUM CHLORIDE 20 MEQ TABLET PO SCH (08:24)
[2018-04-04] MEDS: METOPROLOL TARTRATE 50 MG TABLET PO SCH (08:24)
[2018-04-04] MEDS: ENOXAPARIN 40 MG/0.4 ML SYRINGE SUBQ SCH (08:25)
[2018-04-04] MEDS: SODIUM CHLORIDE FLUSH 0.9% 10 ML SYRINGE IVP SCH (08:25)
[2018-04-04 08:36] LABS: BUN - BLOOD UREA NITROGEN < 5 mg/dL (6-20); CALCIUM 8.9 mg/dL (8.5-10.3); CARBON DIOXIDE - CO2 24 mmol/L (21-32); CHLORIDE 103 mmol/L (101-111); CREATININE 0.7 mg/dL (0.4-1.0); GFR - MDRD 84 (>89); GLUCOSE 122 mg/dL (70-100); MAGNESIUM 1.9 mg/dL (1.7-2.8); SODIUM 134 mmol/L (135-145)
--- NOTE | 2018-04-04 08:52 | PROVIDER PROGRESS NOTE ---
Assessment/Plan - Problem List (1) Abdominal pain Qualifiers: Abdominal location: generalized Qualified Code(s): R10.84 - Generalized abdominal pain Assessment/Plan: Resolving, thought due to partial SBO; plan: home on low residue diet. (2) SBO (small bowel obstruction) Assessment/Plan: Clinically improving. Rec: home on low residue diet, outpt f/u in [address] Hernández. (3) Hypokalemia Assessment/Plan: resolved with replacement therapy. - Current Meds Current Meds: Current Medications Generic Name Dose Route Start Last Admin Trade Name Freq PRN Reason Stop Dose Admin Clonidine HCl 1 patch 04/02/18 06:00 04/03/18 08:34 [id number] TOP 1 patch Q7D AMNA Administration Enoxaparin Sodium 40 mg 03/30/18 09:00 04/04/18 08:25 Lovenox SUBQ 40 mg DAILY AMNA Administration Potassium Chloride/Dextrose/Sod Cl 1,000 mls @ 125 mls/hr 04/03/18 08:00 02/15 08:27 D5.45ns W/20 Meq Kcl IV Not Given .Q8H AMNA Losartan Potassium 100 mg 04/03/18 11:00 04/04/18 08:24 Cozaar PO 100 mg DAILY AMNA Administration Metoprolol Tartrate 100 mg 04/03/18 10:00 04/04/18 08:24 Lopressor PO 100 mg BID AMNA Administration Morphine Sulfate 4 mg 03/29/18 20:38 04/03/18 23:40 Morphine IVP 4 mg Q2H PRN Administration Pain 8 to 10 Ondansetron HCl 4 mg 03/29/18 20:38 04/03/18 19:14 Zofran Inj IVP 4 mg Q6HR PRN Administration Nausea / Vomiting Pantoprazole Sodium 40 mg 03/31/18 11:00 04/04/18 06:36 Protonix IVP 40 mg QDAC AMNA Administration Potassium Chloride 20 meq 04/03/18 08:00 04/04/18 08:24 K-Dur PO 20 meq BIDWM AMNA Administration Prochlorperazine Edisylate 10 mg 03/29/18 20:38 04/03/18 23:41 Compazine Inj IVP 10 mg Q6HR PRN Administration Nausea / Vomiting Sodium Chloride 10 ml 03/29/18 20:38 04/04/18 06:36 Normal Saline Flush 0.9% IVP 10 ml PRN PRN Administration NEEDED PER PROVIDER ORDERS Sodium Chloride 10 ml 03/30/18 01:00 04/04/18 08:25 Normal Saline Flush 0.9% IVP Not Given 0100,0900,1700 AMNA - Lab Result Fish Bone Diagrams: 04/04/18 08:08 04/04/18 08:08 - Additional Planning Condition/Complexity: Improved My Orders: My Active Orders 04/03/18 Lunch DIET [Soft (Low Fiber) Diet] [DIET] Plan Discussed with:: Patient Time Spent: 15-30 minutes Subjective - Subjective Patient Reports: Feeling Better, Abdominal Pain (mild/moderate recurrence yesterday afternoon, with nausea but no vomiting, now resolved; passing flatus and stool, tolerating low residue diet well) Objective Vital Signs: Vital Signs - 24 hr 04/03/18 04/03/18 04/03/18 09:15 15:30 21:46 Temperature 37.4 C Heart Rate [ 96 84 Brachial] Respiratory 16 Rate Blood Pressure 90/70 Blood Pressure 110/60 115/68 [Left Brachial artery] O2 Saturation 96 04/03/18 04/04/18 04/04/18 23:50 08:00 08:24 Temperature 37.0 C 37.0 C Heart Rate [ 97 83 Brachial] Respiratory 18 18 Rate Blood Pressure 115/73 Blood Pressure 114/80 115/73 [Left Brachial artery] O2 Saturation 95 98 Oxygen O2 Source Room air I&O (Last 24 Hrs): Intake and Output Totals x24h 04/02/18 04/03/18 04/04/18 23:59 23:59 23:59 Intake Total 4435 3040 1085 Output Total 800 1101 300 Balance 3635 1939 785 General: Alert, Oriented x3, Cooperative, No acute distress HEENT: Atraumatic Neck: Supple, No JVD Neuro: Alert Cardiovascular: Regular rate, Normal S1, Normal S2 Respiratory: Chest non-tender, No respiratory distress, Breath sounds nml, Rales (left base, clear with cough) Abdomen: Soft, No tenderness, Other (mild distention, hyperactive bowel tones without rushes) Extremities: No edema, No tenderness/swelling Skin: No rashes - Results Results: Laboratory Results WBC 7.2 x10^3/uL (4.8-10.8) 04/04/18 08:08 RBC 4.36 10^6/uL (4.20-5.40) 04/04/18 08:08 Hgb 12.3 g/dL (12.0-16.0) 04/04/18 08:08 Hct 38.6 % (37.0-47.0) 04/04/18 08:08 MCV 88.6 fL (81.0-99.0) 04/04/18 08:08 MCH 28.2 pg (27.0-31.0) 04/04/18 08:08 MCHC 31.8 g/dL (32.0-36.0) L 04/04/18 08:08 RDW 15.1 % (12.0-15.0) H 04/04/18 08:08 Plt Count 187 10^3/uL (130-450) 04/04/18 08:08 MPV 9.7 fL (7.9-10.8) 04/04/18 08:08 Neut # (Auto) 5.8 10^3/uL (1.5-6.6) 04/03/18 06:00 Lymph # (Auto) 2.3 10^3/uL (1.5-3.5) 04/03/18 06:00 [place] # (Auto) 0.6 10^3/uL (0.0-1.0) 04/03/18 06:00 Eos # (Auto) 0.1 10^3/uL (0.0-0.7) 04/03/18 06:00 Baso # (Auto) 0.1 10^3/uL (0.0-0.1) 04/03/18 06:00 Absolute Nucleated RBC 0.01 x10^3/uL 04/03/18 06:00 Nucleated RBC % 0.1 /100WBC 04/03/18 06:00 PT 13.3 secs (9.9-12.6) H 03/30/18 06:35 INR 1.2 (0.8-1.2) 03/30/18 06:35 Sodium 134 mmol/L (135-145) L 04/04/18 08:08 Potassium 3.9 mmol/L (3.5-5.0) 04/04/18 08:08 Chloride 103 mmol/L (101-111) 04/04/18 08:08 Carbon Dioxide 24 mmol/L (21-32) 04/04/18 08:08 Anion Gap 7.0 (6-13) 04/04/18 08:08 BUN < 5 mg/dL (6-20) L 04/04/18 08:08 Creatinine 0.7 mg/dL (0.4-1.0) 04/04/18 08:08 Estimated GFR (MDRD) 84 (>89) L 04/04/18 08:08 Glucose 122 mg/dL (70-100) H 04/04/18 08:08 POC Whole Bld Glucose 135 mg/dL (70 - 100) H 04/03/18 11:04 Glycated Hemoglobin 5.6 % (4.6-6.2) 03/30/18 06:44 Estim Average Glucose 114 (70-100) H 03/30/18 06:44 Lactic Acid 0.6 mmol/L (0.5-2.2) 03/30/18 06:35 Calcium 8.9 mg/dL (8.5-10.3) 04/04/18 08:08 Phosphorus 3.4 mg/dL (2.5-4.6) 04/01/18 05:33 Magnesium 1.9 mg/dL (1.7-2.8) 04/04/18 08:08 Total Bilirubin 0.8 mg/dL (0.2-1.0) 04/03/18 06:00 AST 21 IU/L (10-42) 04/03/18 06:00 ALT 11 IU/L (10-60) 04/03/18 06:00 Alkaline Phosphatase 58 IU/L (42-121) 04/03/18 06:00 Troponin I < 0.04 ng/mL (<0.49) 03/29/18 08:51 Total Protein 5.6 g/dL (6.7-8.2) L 04/03/18 06:00 Albumin 3.0 g/dL (3.2-5.5) L 04/03/18 06:00 Globulin 2.6 g/dL (2.1-4.2) 04/03/18 06:00 Albumin/Globulin Ratio 1.2 (1.0-2.2) 04/03/18 06:00 Lipase 16 U/L (22-51) L 03/30/18 06:35 Urine Color YELLOW 03/29/18 11:21 Urine Clarity CLEAR (CLEAR) 03/29/18 11:21 Urine pH 7.0 PH (5.0-7.5) 03/29/18 11:21 Ur Specific [place] 1.010 (1.002-1.030) 03/29/18 11:21 Urine Protein NEGATIVE mg/dL (NEGATIVE) 03/29/18 11:21 Urine Glucose (UA) NEGATIVE mg/dL (NEGATIVE) 03/29/18 11:21 Urine Ketones 15 mg/dL (NEGATIVE) H 03/29/18 11:21 Urine Occult Blood NEGATIVE (NEGATIVE) 03/29/18 11:21 Urine Nitrite NEGATIVE (NEGATIVE) 03/29/18 11:21 Urine Bilirubin NEGATIVE (NEGATIVE) 03/29/18 11:21 Urine Urobilinogen 0.2 (NORMAL) E.U./dL (NORMAL) 03/29/18 11:21 Ur Leukocyte Esterase NEGATIVE (NEGATIVE) 03/29/18 11:21 Ur Microscopic Review NOT INDICATED 03/29/18 11:21 Urine Culture Comments NOT INDICATED 03/29/18 11:21 - Procedures Procedures: Procedures BYPASS DESCENDING COLON TO CUTANEOUS, OPEN APPROACH (09/03/17) EXCISION OF ASCENDING COLON, OPEN APPROACH (09/03/17) EXCISION OF ILEUM, OPEN APPROACH (09/03/17) INSERTION OF INFUSION DEV INTO SUP VENA CAVA, PERC APPROACH (09/03/17) INTRODUCTION OF NUTRITIONAL INTO CENTRAL VEIN, PERC APPROACH (09/03/17) REPAIR SIGMOID COLON, PERCUTANEOUS ENDOSCOPIC APPROACH (02/05/18) RESECTION OF SIGMOID COLON, OPEN APPROACH (09/03/17) RESPIRATORY VENTILATION, GREATER THAN 96 CONSECUTIVE HOURS (09/03/17) TRANSFUSE NONAUT RED BLOOD CELLS IN CENTRAL VEIN, PERC (09/03/17) ABX Reporting Has patient been on IV antibiotics over the past 48 hours?: No
--- NOTE | 2018-04-04 10:19 | Discharge Plan ---
Discharge Plan Disposition: 01 Home, Self Care Condition: Stable Diet: Low Sodium Activity Restrictions: Activity as Tolerated Shower Restrictions: No Driving Restrictions: No Weight Bearing: Full Weight No Smoking: If you smoke, Please STOP! Call for help. Follow-up with: Sasha Wilcox ARNP [Primary Care Provider] -
--- NOTE | 2018-04-04 10:24 | DISCHARGE SUMMARY ---
Discharge Summary Admit Date: 03/29/18 Discharge Date: 04/04/18 Discharging Provider: Tobi Mayo DO Primary Care Provider: Sasha Schaffer Code Status: Attempt Resuscitation Condition at Discharge: Stable Discharge Disposition: 01 Home, Self Care - DIAGNOSES Admission Diagnoses: 1. Abdominal pain 2. Hypertension 3. Hyperglycemia Discharge Diagnoses with Status of Each Condition: 1. Abdominal pain- Improved/resolved. It now appears that this is secondary to partial small bowel obstruction. We have been slowly advancing the patient' s diet and she has been able to tolerate a low residue diet for 3 meals. She has moved her bowels multiple times. We will discharge her home on the low residue diet. 2. Hypertension- Patient's blood pressure has been very well-managed while she has been inpatient. Resume home medication regimen on discharge. 3. Hyperglycemia- Well-controlled now that the patient is no longer in crisis. - HPI History of Present Illness: From Dr Smith's H&P: Patient is a 62-year-old female with a past medical history significant for hypertension and acute abdomen in August 2017 where necrotic terminal ileum and perforated sigmoid colon was resected in damage control fashion, with second look laparotomy the following day where ileo-right colonic anastomosis was performed along with and descending colostomy. Path showed evidence of ischemia/necrosis of the ileum and no evidence of diverticulitis in the resected sigmoid colon. She recovered and underwent colostomy closure in mid January 2018, and did well until 10 days ago when she noted intermittent nausea and anorexia which resolved 3 days ago. She states that over the last 2 days she has noticed that her bowel movements have slowed. She states that she did have a small bowel movement yesterday morning after she ate a salad. She states that last night around 7 PM she began having excruciating abdominal pain. She states it was a 10 out of 10, sharp and diffuse. She could not localize any area that was worse than another. She states that she then began vomiting and continued to be nauseated throughout the night. She states that she try to wait it out as she has an appointment with her surgeon scheduled next . She states this morning she continued to have the abdominal pain and it continued to be severe. She states that she has had 2 episodes of emesis today which is nonbloody. She states that she did feel some chills but no fever. She states this morning her sister came over and when she saw her she told her immediately to go to the emergency department. Patient denies any headaches, blurred vision, runny nose, sore throat, nasal congestion, difficulty swallowing, chest pain, shortness of air, orthopnea, PND , increased lower extremity swelling, diarrhea, urinary urgency, urinary frequency, dysuria, joint swelling, joint pain, muscle aches, back pain, neck stiffness, hair loss, skin rash, night sweats or any focal neurologic deficits On presentation to the emergency department the patient was afebrile and heart rate was within normal limits. She was however very hypertensive with a blood pressure of 174/137 which was persistently high the entire time she was in the emergency department. She was not in any respiratory distress. The patient underwent routine lab work which revealed no leukocytosis. The patient's electrolytes were all within normal limits aside from a mildly elevated glucose. Patient's lactic acid was 0.7 and her troponin was negative. Patient underwent a UA which did show ketones but was otherwise negative. The patient also underwent a CT of her abdomen and pelvis which showed multiple loops of fluid and air-filled dilated small bowel with no transition point identified. There was stool in the colon. These findings were concerning for ileus or partial small bowel obstruction and a Gastrografin small bowel series challenge was recommended. The emergency room physician spoke with the surgeon corporate bond trader Dr. Vargas who examined the patient in the emergency department and recommended transfer to a hospital capable of doing a conventional mesenteric angiography. He felt that the patient likely had recurrent mesenteric ischemia given that her pain was out of proportion to her examination. He thought it could also be acute gastroenteritis or small bowel obstruction but felt this was less likely. The emergency room physician then attempted to transfer the patient and called 7 different hospitals which were all full. She then finally reached [facility] which did have beds and spoke with the hospitalist on-call who referred her to the interventional radiologist. After she spoke with the interventional radiologist it was determined that the patient could get a CT angiogram of her abdomen pelvis and this would give as much information as a mesenteric angiogram. The CT undergone of the abdomen and pelvis could be done at our facility and therefore the test was ordered and it showed that there was no evidence of arterial occlusion or significant stenosis. It did show a mildly dilated left abdomen small bowel. The emergency room physician then requested that the hospitalist team place the patient in observation for partial small bowel obstruction. - HOSPITAL COURSE Hospital Course: The patient was initially seen in the emergency department with a general surgeon who felt that she was probably having another bout of ischemic bowel. Because it was a very busy time there were no open beds available in any of the other [facility] hospitals. Patient was admitted and it became apparent after a day or so that problem was not ischemic bowel but rather a partial small bowel obstruction. After several days with the patient being n.p.o. we restarted her on clear liquid diet which she has tolerated fairly well. This was advanced to a low residue diet which again the patient has tolerated well. She will be discharged home on a low residue diet with instructions to follow-up with gastroenterology and surgery in 1 week. - ALLERGIES Allergies/Adverse Reactions: Allergies Allergy/AdvReac Type Severity Reaction Status Date / Time Penicillins Allergy Unknown Verified 01/16/18 13:43 - MEDICATIONS Home Medications: Ambulatory Orders Medication Instructions Recorded Confirmed Losartan [Cozaar] 100 mg PO DAILY 06/19/17 03/30/18 Metoprolol Tartrate [Lopressor] 100 mg PO BID #60 tablet 09/17/17 03/30/18 Multivitamin W/Minerals [Theragran 1 tab PO DAILYWM tablet 09/17/17 03/30/18 M] Cyclobenzaprine [Flexeril] 5 mg PO TID PRN tablet 04/04/18 Losartan [Cozaar] 100 mg PO DAILY tablet 04/04/18 Metoprolol Tartrate [Lopressor] 100 mg PO BID tablet 04/04/18 - PHYSICAL EXAM AT DISCHARGE General Appearance: positive: No acute distress, Alert Eyes Bilateral: positive: Normal inspection, PERRL, EOMI, No lid inflammation, Conjunctivae nml, No scleral icterus ENT: positive: ENT inspection nml, Pharynx nml, No signs of dehydration Neck: positive: Nml inspection, Thyroid nml, No JVD, Trachea midline. negative : Thyromegaly Respiratory: positive: Chest non-tender, No respiratory distress, Breath sounds nml. negative: Wheezes, Rales, Rhonchi Cardiovascular: positive: Regular rate & rhythm, No murmur, No gallop Peripheral Pulses: positive: 1+ Abdomen: positive: Non-tender, No organomegaly, Nml bowel sounds, No distention. negative: Guarding, Rebound, Mass Back: positive: Nml inspection. negative: CVA tenderness (R), CVA tenderness (L ) Skin: positive: Color nml, No rash, Warm, Dry. negative: Cyanosis Extremities: positive: Non-tender, Full ROM, Nml appearance, No pedal edema Neurologic/Psychiatric: positive: Oriented x3, CN's nml (2-12), Motor nml, Sensation nml, Mood/affect nml - LABS Result Diagrams: 04/04/18 08:08 04/04/18 08:08 - DIAGNOSTIC IMAGING Diagnostic Imaging Results: Final report reviewed Diagnostic Imaging Results Comments: EXAM: CT ABDOMEN AND PELVIS EXAM DATE: 03/29/2018 09:59 AM. CLINICAL HISTORY: Hx perf with colostomy 09/16 take down 02/15. COMPARISONS: None. TECHNIQUE: Routine helical CT imaging was performed through the abdomen and pelvis. IV contrast: None. Enteric contrast: No. Reconstructions: Coronal and sagittal. In accordance with CT protocol optimization, one or more of the following dose reduction techniques were utilized for this exam: automated exposure control, adjustment of mA and/or KV based on patient size, or use of iterative reconstructive technique. FINDINGS: Lung Bases: Unremarkable. Liver: Normal. No masses. Gallbladder/Bile Ducts: Unremarkable. Spleen: Normal. Pancreas: Normal. Adrenal Glands: Normal. 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 No hydronephrosis or renal calculus. Peritoneal Cavity/Bowel: Postsurgical changes status post colostomy takedown with dilated loops of small bowel in the left abdomen with no transition point identified.. No free air-fluid in the abdomen or. No masses or acute inflammatory process. The appendix is not visualized. Pelvic Organs: Normal. The bladder and visualized pelvic organs are within normal limits. Vasculature: No aneurysms or other significant abnormality. Bones: No significant abnormality. Other: None. IMPRESSION: 1. Status post colostomy takedown with postsurgical changes in the abdomen and pelvis. 2. Multiple loops of fluid and air-filled dilated small bowel with no transition point identified. There is stool in the colon. Findings can BE seen in the setting of ileus or partial small bowel obstruction. A Gastrografin small bowel series challenge may be of benefit to further characterize this finding. EXAM: CT ANGIOGRAM ABDOMEN AND PELVIS WITH CONTRAST EXAM DATE: 03/29/2018 06:00 PM. CLINICAL HISTORY: Mesenteric ischemia COMPARISONS: 03/29/2018. TECHNIQUE: Routine helical CT angiogram imaging was performed through the abdomen and pelvis in the arterial phase. IV contrast: 100 cc Isovue-300. Enteric contrast: No. Reconstructions: Coronal, sagittal, and 3D MIP reconstructions. In accordance with CT protocol optimization, one or more of the following dose reduction techniques were utilized for this exam: automated exposure control, adjustment of mA and/or KV based on patient size, or use of iterative reconstructive technique. FINDINGS: Vasculature: There is no evidence of aortic dissection or aneurysm. There is thoracic aortic tortuosity. There are scattered atheromatous disease of the aorta. The celiac artery and its branches are patent. The visualized superior mesenteric artery is patent. The renal arteries are patent. The inferior mesenteric artery is patent. There is no evidence of iliac occlusion. Lung Bases: Normal. Abdominal Solid Organs: Arterial phase imaging of the solid abdominal organs demonstrates no acute abnormalities. Peritoneal Cavity: There is some mildly dilated left abdomen small bowel. There is decompressed small bowel within the right abdomen. No acute colonic abnormalities are seen. There is moderate stool within colon. Pelvic Organs: Normal. The bladder and visualized pelvic organs are within normal limits. Bones: No significant abnormality. Other: None. IMPRESSION: 1. There is no evidence of arterial occlusion or significant stenosis. 2. Mildly dilated left abdomen small bowel persists. 3. Arterial phase imaging of the solid abdominal organs demonstrates no acute abnormalities. 4. There is moderate stool within colon. EXAM: ABDOMEN RADIOGRAPHY EXAM DATE: 03/30/2018 09:55 AM. CLINICAL HISTORY: F/u ileus vs SBO. COMPARISON: Abdominal CT dated 03/29/2018. TECHNIQUE: 2 views. FINDINGS: Lung Bases: Unremarkable. Bowel Gas Pattern: Again demonstrated are multiple loops of dilated air-filled small bowel with air and stool in the colon and rectum. Free Air: None. Other: None. IMPRESSION: Persistent ileus/partial small bowel obstruction, similar to the prior examination. - FOLLOW UP Follow Up: Follow-up with Sasha schaffer next week and with your religious education teacher in the next month. - TIME SPENT Time Spent in Discharge (Minutes): 40
== END 2018-04-04 11:22 | disposition home or self-care (01) | DRG 305 ==
LOC: ED 08:00 → OBS 20:38 → OBSVTOIN 03-31 13:30 → OBS 03-31 15:26 → MS2 03-31 15:26 → UNDODISIN 04-04 11:22
PROVIDERS: ADMIT Internal Medicine; ATTEND Hospitalist
DX: R10.84 Generalized abdominal pain (principal); I10 Essential (primary) hypertension; E78.00 Pure hypercholesterolemia, unspecified; K56.609 Unspecified intestinal obstruction, unspecified as to partial versus complete obstruction; E87.1 Hypo-osmolality and hyponatremia; R73.9 Hyperglycemia, unspecified; E86.0 Dehydration; E87.6 Hypokalemia; K59.09 Other constipation; Z66 Do not resuscitate; Z90.49 Acquired absence of other specified parts of digestive tract; Z87.891 Personal history of nicotine dependence
CPT/HCPCS: 36415; 71045; 74019; 74174; 74176; 74250; 76700; 80048; 80053; 81001; 81003; 83036; 83605; 83690; 83735; 84100; 84484; 85025; 85027; 85610; 87086; 93005; 96361; 96365; 96366; 96368; 96372; 96375; 96376; 99284; 99285

== ENCOUNTER 2018-08-05 11:02 | Observation (INO) | payer MEDICARE, OTHER ==
[2018-08-05] MEDS ORDERED: ONDANSETRON 4 MG/2 ML VIAL IVP STA (11:21)
[2018-08-05] MEDS ORDERED: SODIUM CHLORIDE 0.9% 1,000 ML IV ONE ×2 (11:21→13:16)
[2018-08-05 12:03] LABS: BASOPHILS # (AUTO) 0.1 10^3/uL (0.0-0.1); BASOPHILS % (AUTO) 0.6 %; EOSINOPHILS % (AUTO) 0.1 %; HGB - HEMOGLOBIN 16.5 g/dL (12.0-16.0); LYMPHOCYTES # (AUTO) 4.7 10^3/uL (1.5-3.5); LYMPHOCYTES % (AUTO) 27.3 %; MEAN CORPUSCULAR HGB CONC 33.3 g/dL (32.0-36.0); MEAN PLATELET VOLUME 9.2 fL (7.9-10.8); MONOCYTES # (AUTO) 0.8 10^3/uL (0.0-1.0); MONOCYTES % (AUTO) 4.6 %; NEUTROPHILS # (AUTO) 11.6 10^3/uL (1.5-6.6); NEUTROPHILS % (AUTO) 67.4 %; PLT - PLATELET COUNT 308 10^3/uL (130-450); RED BLOOD COUNT 6.12 10^6/uL (4.20-5.40); RED CELL DISTRIBUTION WIDTH 17.4 % (12.0-15.0); WHITE BLOOD COUNT 17.2 x10^3/uL (4.8-10.8)
[2018-08-05] MEDS ORDERED: MORPHINE 2 MG/ML CARPUJECT IVP STA (12:05)
[2018-08-05] MEDS ORDERED: METOPROLOL TARTRATE 50 MG TABLET PO STA (12:07)
[2018-08-05 12:13] LABS: ALBUMIN/GLOBULIN RATIO 1.6 (1.0-2.2); BILIRUBIN,TOTAL 1.2 mg/dL (0.2-1.0); CALCIUM 10.5 mg/dL (8.5-10.3); CREATININE 1.3 mg/dL (0.4-1.0); TOTAL PROTEIN 9.7 g/dL (6.7-8.2)
--- NOTE | 2018-08-05 12:43 | XRAY Report ---
Reason: vomiting Procedure Date: 08/05/2018 Accession Number: [id number] / [id number] Procedure: XR - Abdomen Acute CPT Code: FULL RESULT: EXAM: ABDOMINAL SERIES EXAM DATE: 08/05/2018 12:26 PM. CLINICAL HISTORY: Vomiting. COMPARISON: ABDOMEN 2 VIEW 04/02/2018 11:26 AM. TECHNIQUE: 2 views abdomen FINDINGS: ABDOMEN: Bowel Gas Pattern: Within normal limits. No dilated loops or abnormal fluid levels. Free Air: None. Other: None. IMPRESSION: Gas is seen in large and small bowel loops, nonobstructive bowel gas pattern. RADIA ADDENDUM: 08/05/18 13:53 This addendum is to reflect the fact that an additional AP view of the chest has been submitted for further review. The chest radiograph is essentially normal and does not demonstrate free air underneath the diaphragm. Lung cortes are clear. There is no pleural effusion or pneumothorax. The cardiomediastinal silhouette is within normal limits.
[2018-08-05] MEDS ORDERED: PROMETHAZINE INJ 25 MG in SODIUM CHLORIDE 0.9% 50 ML IV STA (13:16)
[2018-08-05] MEDS ORDERED: HYDROmorphone 1 MG/ML CARPUJECT IVP STA (13:17)
[2018-08-05] MEDS ORDERED: IOPAMIDOL-300 100 ML VIAL ONE (13:40)
[2018-08-05 14:09] LABS: BILIRUBIN,URINE NEGATIVE (NEGATIVE); CLARITY,URINE CLEAR (CLEAR); GLUCOSE, URINE (UA) NEGATIVE (NEGATIVE); KETONES,URINE (UA) TRACE mg/dL (NEGATIVE); LEUKOCYTE ESTERASE, URINE NEGATIVE (NEGATIVE); NITRITE,URINE NEGATIVE (NEGATIVE); OCCULT BLOOD,URINE SMALL (NEGATIVE); PH,URINE 6.5 PH (5.0-7.5); PROTEIN,URINE 30 mg/dL (NEGATIVE); UROBILINOGEN,URINE 0.2 (NORMAL) E.U./dL (NORMAL)
[2018-08-05 14:27] LABS: BACTERIA,URINE Rare /HPF (None Seen); RBC,URINE 0-5 /HPF (0-5); SQUAMOUS EPITHELIAL CELL,UR FEW Squamous (<= Few)
[2018-08-05 14:28] LABS: CASTS, URINE 3-5 Hyaline Casts /LPF; MUCUS,URINE Few Strands
--- NOTE | 2018-08-05 14:51 | CT Report ---
Reason: abdominal pain, vomiting, Procedure Date: 08/05/2018 Accession Number: [id number] / [id number] Procedure: CT - Abdomen/Pelvis W/ CPT Code: FULL RESULT: EXAM: CT ABDOMEN AND PELVIS EXAM DATE: 08/05/2018 02:09 PM. CLINICAL HISTORY: Abdominal pain, vomiting. COMPARISONS: 03/29/2018. TECHNIQUE: Routine helical CT imaging was performed through the abdomen and pelvis. IV contrast: ISOVUE 300 100mL. Enteric contrast: No. Reconstructions: Coronal and sagittal. In accordance with CT protocol optimization, one or more of the following dose reduction techniques were utilized for this exam: automated exposure control, adjustment of mA and/or KV based on patient size, or use of iterative reconstructive technique. FINDINGS: Lung Bases: Unremarkable. Liver: Normal. No masses. Gallbladder/Bile Ducts: Unremarkable. Spleen: Normal. Pancreas: Normal. Adrenal Glands: Normal. Kidneys: Small left renal angiomyolipomata, unchanged. Otherwise unremarkable. No hydronephrosis. Peritoneal Cavity/Bowel: Dilation of left upper quadrant fluid filled small bowel loops measuring 3.2 cm. Transition zone in the mid abdomen. Postoperative changes of cecum and sigmoid. Mild colonic diverticulosis. Diffuse bowel wall thickening in the proximal sigmoid and descending sigmoid junction measuring 7 mm. No free fluid, free air, or lymphadenopathy. Appendix not visualized. Pelvic Organs: Unremarkable urinary bladder. Absent or atrophic uterus. Vasculature: No aneurysms or other significant abnormality. Bones: No significant abnormality. Other: None. IMPRESSION: 1. Mild dilation of proximal small bowel loops, partial small bowel obstruction versus regional ileus. 2. Diffuse wall thickening in the distal descending and proximal sigmoid colon, suspicious for an enteritis, infectious versus noninfectious. Diverticulitis could account for this finding, but no other evidence of diverticulitis at this time. 3. Mild diverticulosis and other chronic or incidental findings. RADIA
[2018-08-05] MEDS ORDERED: IOPAMIDOL-300 100 ML VIAL IVP ONE (15:46)
--- NOTE | 2018-08-05 15:49 | ED Physician Documentation ---
PD HPI ABD PAIN - Stated complaint Stated Complaint: N/V - Chief complaint Chief Complaint: General - Additional information Additional information: 63-year-old female with a history of small bowel obstructions presents to the emergency department with abdominal pain and vomiting for the past several days. The patient's symptoms have progressively worsened and she has been unable to tolerate fluids or food. The patient denies any focal area of abdominal pain. No blood in the vomit or stools. No specific triggering factors. No relieving factors. No radiation of symptoms. No other associated symptoms. Review of Systems Constitutional: reports: Chills, Fatigue. 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 : None HEENT: None Psych: None Musculoskeletal: None Derm: None - Past Surgical History Past Surgical History: No General: Bowel surgery, Gastric surgery, Other - Present Medications Home Medications: Ambulatory Orders Medication Instructions Recorded Confirmed Multivitamin W/Minerals [Theragran 1 tab PO DAILYWM tablet 09/17/17 03/30/18 M] Cyclobenzaprine [Flexeril] 5 mg PO TID PRN tablet 04/04/18 Losartan [Cozaar] 100 mg PO DAILY tablet 04/04/18 Metoprolol Tartrate [Lopressor] 100 mg PO BID tablet 04/04/18 - Allergies Allergies/Adverse Reactions: Allergies Allergy/AdvReac Type Severity Reaction Status Date / Time Penicillins Allergy Unknown Verified 08/05/18 11:28 - Social History Does the pt smoke?: No Smoking Status: Never smoker Does the pt drink ETOH?: No Does the pt have substance abuse?: No - Immunizations Immunizations are current?: Yes - POLST Patient has POLST: No POLST Status: DNR PD ED PE NORMAL - General General: Other (63-year-old thin appearing female who appears acutely uncomfortable) - HEENT HEENT: Atraumatic, PERRL, EOMI, Ears normal - Cardiac Cardiac: Strong equal pulses, Other (Regular tachycardia) - Respiratory Respiratory: No respiratory distress - Abdomen Abdomen: Soft, Non distended. No: Non tender (Diffuse tenderness, no rebound or peritoneal signs) - Derm Derm: Normal color - Extremities Extremities: No deformity, No edema - Neuro Neuro: Alert and oriented X 3, Normal speech - Psych Psych: Normal affect Results - Vitals Vitals: Vital Signs - 24 hr 08/05/18 08/05/18 08/05/18 11:54 13:39 14:10 Temperature 36.5 C Heart Rate 133 H 87 74 Respiratory 20 12 17 Rate Blood Pressure 171/122 H 202/136 H 166/103 H O2 Saturation 97 98 95 08/05/18 15:30 Temperature Heart Rate 72 Respiratory 17 Rate Blood Pressure 161/105 H O2 Saturation 98 Oxygen O2 Source Room air - Labs Labs: Laboratory Tests 08/05/18 08/05/18 08/05/18 11:35 11:35 13:15 WBC 17.2 H RBC 6.12 H Hgb 16.5 H Hct 49.6 H MCV 81.0 MCH 27.0 MCHC 33.3 RDW 17.4 H Plt Count 308 MPV 9.2 Neut # (Auto) 11.6 H Lymph # (Auto) 4.7 H [place] # (Auto) 0.8 Eos # (Auto) 0.0 Baso # (Auto) 0.1 Absolute Nucleated RBC 0.01 Nucleated RBC % 0.1 Sodium 134 L Potassium 3.5 Chloride 93 L Carbon Dioxide 23 Anion Gap 18.0 H BUN 28 H Creatinine 1.3 H Estimated GFR (MDRD) 41 L Glucose 143 H Calcium 10.5 H Total Bilirubin 1.2 H AST 42 ALT 30 Alkaline Phosphatase 109 Total Protein 9.7 H Albumin 6.0 H Globulin 3.7 Albumin/Globulin Ratio 1.6 Lipase 24 Urine Color YELLOW Urine Clarity CLEAR Urine pH 6.5 Ur Specific [place] 1.025 Urine Protein 30 H Urine Glucose (UA) NEGATIVE Urine Ketones TRACE Urine Occult Blood SMALL H Urine Nitrite NEGATIVE Urine Bilirubin NEGATIVE Urine Urobilinogen 0.2 (NORMAL) Ur Leukocyte Esterase NEGATIVE Urine RBC 0-5 Urine WBC 4-5 Ur Squamous Epith Cells FEW Squamous Urine Bacteria Rare Urine Casts 3-5 Hyaline Casts Urine Mucus Few Strands Ur Microscopic Review INDICATED Urine Culture Comments NOT INDICATED - Rads (name of study) CT abd/pelvis Radiology: Final report received, See rad report (partial sbo) PD MEDICAL DECISION MAKING - ED course ED course: The patient's CT scan is concerning for early small bowel obstruction, the patient will require admission to the hospital for ongoing management of her symptoms. The findings and plan were discussed with the patient who understands and agrees to the plan. The case discussed with the hospitalist Dr. Mahmood who accepts the patient onto her service. Departure - Departure Disposition: ED Place in Observation Clinical Impression: SBO (small bowel obstruction) Condition: Fair
[2018-08-05] MEDS ORDERED: ONDANSETRON ODT 4 MG TABLET TL PRN (15:54)
[2018-08-05] MEDS ORDERED: HYDROmorphone 1 MG/ML CARPUJECT IVP PRN (15:54)
[2018-08-05] MEDS ORDERED: ONDANSETRON 4 MG/2 ML VIAL IVP PRN (15:54)
[2018-08-05] MEDS ORDERED: SODIUM CHLORIDE FLUSH 0.9% 10 ML SYRINGE IVP PRN (15:54)
[2018-08-05] MEDS ORDERED: METOPROLOL 5 MG/5 ML VIAL IVP PRN (15:59)
[2018-08-05] MEDS ORDERED: SODIUM CHLORIDE 0.9% 1,000 ML IV SCH (16:00)
--- NOTE | 2018-08-05 16:00 | HISTORY & PHYSICAL EXAMINATION ---
Chief Complaint - Chief Complaint Chief Complaint: abd pain and emesis History of Present Illness - Admitted From Admitted From:: ER/Home - History Obtained From Records Reviewed: Anthony History obtained from: Anthony, Dr. Kamara, Patient Exam Limitations: None - History of Present Illness HPI Comment/Other: This is a 63-year-old unfortunate female who now returns for her third admission of small bowel obstruction. Her first admission was in August 2017 where necrotic terminal ileum and a perforated sigmoid colon was resected and damage control fashion with a second look laparotomy the following day. An ileal right colonic anastomosis was performed along with a descending colostomy. Pathology at that time showed evidence of ischemia and necrosis of the ileum and no evidence of diverticulitis in the resected sigmoid bowel. She recovered and underwent a colostomy closure in mid January 2018. Then approximately March 19, 2018 she noticed intermittent nausea and anorexia. Then for 2 days she noticed that her bowel movements have slowed. On the day of admission she began having excruciating abdominal pain that was a 10 out of 10, sharp and diffuse. She began vomiting through the night and continued to be nauseated through the night. So she came to the emergency room on March 29 and was found to have a nother partial bowel obstruction. She was consulted on by general surgery and expectant management occurred. She had IV fluids, pain management, was then made n.p.o. She had slow resolution of the partial small bowel obstruction, diet was advanced to a low residue diet she was discharged home on April 04. For the last several days she is have a generalized abdominal pain. Nothing makes it worse. She has no appetite. Does not want to eat and stopped eating 08/02/18 and last stool 08/03. She still has been having flatus since then. No fever or chills. Then the vomiting started. Her pain and vomiting have gotten to the point where she cannot take any food or fluids and she came to the em ergency room. She was afebrile at 36 5. Tachycardic at 133. Blood pressure 171/122. White cell count is elevated at 17.2. The CT scan is once again compatible with a partial small bowel obstruction. We are being asked to admit her to our service. She has received phenergan, IVF and has already improved. It is interesting to note that this patient has had decades of nausea vomiting abdominal pain. When she lived in [facility] she was evaluated multiple times. She was admitted to our emergency room twice with nausea vomiting abdominal pain and a negative evaluation and sent home even before her August 2017 admit. History - Past Medical History Cardiovascular: reports: Hypertension, High cholesterol, Murmur (Echo February 09, 2018 with mild concentric left ventricular hypertrophy. Hyperdynamic function w ith ejection fraction greater than 75%. Right ventricle normal size and function. Severe increased left atrial volume index. Right atrial size normal. No valvular heart disease seen. Unable to assess RVSP because of tricuspid regurgitation jet), Other (With 1 of her episodes for nausea and vomiting 11/2016, she had ST-T wave changes. 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 Dad: of pulmonary fibrosis. Sisters had leukemia Living arrangement: At home Living Situation: Alone Social History Notes: The patient is originally from [place], [place] but lived in [place] during her early years. She went to college for a short ti me, got , got , never got again, she has no children. 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 She previously lived in [place], [place]. She currently lives in [place], [place]. She lives alone. She does not smoke but did previously smoke cigarettes quit 10 years ago. She denies any illicit drug use. She states that she occasionally drinks a glass of wine. - Substance History Use: Uses substance without health or social issues: NONE Abuse: Recurrent use of substance despite neg consequences: NONE Dependence: Experiences withdrawal or developed tolerances: NONE - POLST Patient has POLST: Yes POLST Status: DNR Meds/Allgy - Home Medications Home Medications: Ambulatory Orders Medication Instructions Recorded Confirmed Multivitamin W/Minerals [Theragran 1 tab PO DAILYWM tablet 09/17/17 03/30/18 M] Cyclobenzaprine [Flexeril] 5 mg PO TID PRN tablet 04/04/18 Losartan [Cozaar] 100 mg PO DAILY tablet 04/04/18 Metoprolol Tartrate [Lopressor] 100 mg PO BID tablet 04/04/18 - Allergies Allergies/Adverse Reactions: Allergies Allergy/AdvReac Type Severity Reaction Status Date / Time Penicillins Allergy Unknown Verified 08/05/18 11:28 Review of Systems - Constitutional Constitutional: reports: Poor appetite. denies: Fatigue, Fever, Chills - Eyes Eyes: denies: Pain, Irritation, Vision loss - Ears, Nose & Throat Ears, Nose & Throat: denies: Hearing loss, Vertigo, Nasal obstruction, Nasal congestion, Dentures, Sore throat - Cardiovascular Cariovascular: reports: Lightheadedness. denies: Irregular heart rate, Chest pain, Syncope, Exertional dyspnea - Respiratory Respiratory: denies: Cough, Sputum production, Wheezing, SOB at rest, SOB with exertion - Gastrointestinal Gastrointestinal: reports: Abdominal pain, Abdominal distention, Diarrhea, Vo miting - Genitourinary Genitourinary: denies: Dysuria, Frequency, Urgency, Hematuria - Musculoskeletal Musculoskeletal: denies: Muscle pain, Back pain, Muscle aches - Integumentary Integumentary: denies: Pruritis, Lesions - Neurological Neurological: reports: General weakness. denies: Focal weakness, Headache, Numbness - Psychiatric Psychiatric: reports: Anxiety. denies: Depression - Endocrine Endocrine: denies: Polyuria, Polydypsia, Polyphagia - Hematologic/Lymphatic Hematologic/Lymphatic: denies: Anemia, Bruising Prior Level of Functionality: independent with ADL's . Drives, pays her bills herself, cleans her house. Exam - Vital Signs Reviewed Vital Signs: Yes Vital Signs: Vital Signs x48h Temp Pulse Resp BP Pulse Ox 08/05/18 15:30 72 17 161/105 H 98 08/05/18 14:10 74 17 166/103 H 95 08/05/18 13:39 87 12 202/136 H 98 08/05/18 11:54 36.5 C 133 H 20 171/122 H 97 - Physical Exam General Appearance: positive: No acute distress, Alert, Other (she is already improving, and has no pain. very slender, almost chachectic) Eyes Bilateral: positive: PERRL, EOMI, Other (perio orbital edema) ENT: positive: Pharynx nml Neck: positive: No JVD. negative: Stiff neck, Carotid bruit Respiratory: positive: Chest non-tender, Rhonchi. negative: Wheezes, Rales Cardiovascular: positive: Regular rate & rhythm, Systolic murmur. negative: Gallop/S4, Friction rub Peripheral Pulses: positive: 1+ Abdomen: positive: No organomegaly, Nml bowel sounds, Other (mild distension and mild tenderness diffusely) Skin: positive: Warm, Dry Extremities: positive: Full ROM, No pedal edema Neurologic/Psychiatric: positive: Oriented x3, CN's nml (2-12), Motor nml, Sensation nml Conclusion/Plan - Problem List (1) SBO (small bowel obstruction) Conclusion/Plan: The first time was from ischemic bowel. The second time was most likely from adhesions. She now presents for a third time. While she does have a elevated white cell count, she does not have a fever. I seems to be partial sbo. already w flatus. Plan: Place in acute inpatient status Surgical consult with Dr. Jn Vargas Called into him. Message left on his call phone answering machine Start Zosyn Daily KUBs To follow resolution of dilation N.p.o. status Monitor daily CBCs NG to low intermittent suction (2) Acute renal injury due to hypovolemia Conclusion/Plan: Her usual creatinine can be as low as 0.5. In August 2017 when she became first sick her creatinine peaked at 1.4. Today she is 1.3. In addition to the elevation of her creatinine this patient has an elevated protein at 9.7, elevated calcium at 10.5, elevated hemoglobin and hematocrit. Those are both new for her and probably due to lack of intravascular free water. We will check those again tomorrow. Plan: Attributed to lack of p.o. intake and hypovolemia Hydrate with 0.9 normal saline Recheck BMP daily Avoid nephrotoxic drugs (3) Hypertension goal BP (blood pressure) < 140/90 Conclusion/Plan: She is on an ARB and a beta-sanford. Not clear when she last took her medications. She will be n.p.o. and as such will need to have her medications adjusted. Plan: IV Lopressor 5 mg every 6 hours as needed systolic greater than 180 or pulse greater than 100 We will give hydralazine if needed. Right now avoiding JUS inhibitor because of her BUN and creatinine. - Lab Results Fish Bones: 08/05/18 11:35 08/05/18 11:35 - Diagnostic Imaging Results Diagnostic Imaging Results: positive: Final report reviewed Diagnostic Imaging Results Comments: CT ABDOMEN AND PELVIS EXAM DATE: 08/05/2018 02:09 PM. CLINICAL HISTORY: Abdominal pain, vomiting. COMPARISONS: 03/29/2018. TECHNIQUE: Routine helical CT imaging was performed through the abdomen and pelvis. IV contrast: ISOVUE 300 100mL. Enteric contrast: No. Reconstructions: Coronal and sagittal. In accordance with CT protocol optimization, one or more of the following dose reduction techniques were utilized for this exam: automated exposure control, adjustment of mA and/or KV based on patient size, or use of iterative reconstructive technique. FINDINGS: Lung Bases: Unremarkable. Liver: Normal. No masses. Gallbladder/Bile Ducts: Unremarkable. Spleen: Normal. Pancreas: Normal. Adrenal Glands: Normal. Kidneys: Small left renal angiomyolipomata, unchanged. Otherwise unremarkable. No hydronephrosis. Peritoneal Cavity/Bowel: Dilation of left upper quadrant fluid filled small bowel loops measuring 3.2 cm. Transition zone in the mid abdomen. Postoperative changes of cecum and sigmoid. Mild colonic diverticulosis. Diffuse bowel wall thickening in the proximal sigmoid and descending sigmoid junction measuring 7 mm. No free fluid, free air, or lymphadenopathy. Appendix not visualized. Pelvic Organs: Unremarkable urinary bladder. Absent or atrophic uterus. Vasculature: No aneurysms or other significant abnormality. Bones: No significant abnormality. Other: None. IMPRESSION: 1. Mild dilation of proximal small bowel loops, partial small bowel obstruction versus regional ileus. 2. Diffuse wall thickening in the distal descending and proximal sigmoid colon, suspicious for an enteritis, infectious versus noninfectious. Diverticulitis could account for this finding, but no other evidence of diverticulitis at this time. 3. Mild diverticulosis and other chronic or incidental findings. RADIA - EKG Results EKG Interpreted Independently: No Core Measures - Anticipated LOS I expect patient to be DC'd or transferred within 96 hours.: Yes - DVT/VTE - Prophylaxis VTE/DVT Device ordered at admit?: Yes
[2018-08-05] MEDS: PANTOPRAZOLE 40 MG VIAL IVP SCH (16:53)
--- NOTE | 2018-08-05 16:58 | CONSULTATION NOTE ---
Referring Provider Name of Referring Provider:: Dr. Reyna Consult Date: 08/05/18 Chief Complaint - Chief Complaint Chief Complaint: N/V History of Present Illness - Admitted From Admitted From:: ER - History Obtained From Records Reviewed: yes History obtained from: pt, records Exam Limitations: none - History of Present Illness HPI Comment/Other: 63 yo female with 3 day hx of recurrent N/V without abd pain, melena, BRBPR, hematemesis, fever/chills, or wt loss. Her last bm was nl 2 days ago. No unusual oral intake. Hx similar sx numerous times in past; Also hx of ischemic bowel s/p partial colectomy x 2 last year, and subsequent episode of adhesive SBO this past summer. Did well until current sx developed. Actually feeling better now, with nausea but no emesis today, but weak. Feeling better after hydration in the ER. History - Past Medical History Cardiovascular: reports: Hypertension, High cholesterol, Murmur (Echo February 09, 2018 with mild concentric left ventricular hypertrophy. Hyperdynamic function with ejection fraction greater than 75%. Right ventricle normal size and function. Severe increased left atrial volume index. Right atrial size normal. No valvular heart disease seen. Unable to assess RVSP because of tricuspid regurgitation jet), Other (With 1 of her episodes for nausea and vomiting 11/2016, she had ST-T wave changes. 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 Dad: of pulmonary fibrosis. Sisters had leukemia Living arrangement: At home Living Situation: Alone Social History Notes: The patient is originally from [place], [place] but lived in [place] during her early years. She went to college for a short time, got , got , never got again, she has no children. 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 She previously lived in [place], [place] and [place]. She currently lives in [place], [place]. She lives alone. She does not smoke but did previously smoke cigarettes quit 10 years ago. She denies any illicit drug use. She states that she occasionally drinks a glass of wine. - Substance History Use: Uses substance without health or social issues: NONE Abuse: Recurrent use of substance despite neg consequences: NONE Dependence: Experiences withdrawal or developed tolerances: NONE - POLST Patient has POLST: Yes POLST Status: DNR Meds/Allgy - Home Medications Home Medications: Ambulatory Orders Medication Instructions Recorded Confirmed Multivitamin W/Minerals [Theragran 1 tab PO DAILYWM tablet 09/17/17 03/30/18 M] Cyclobenzaprine [Flexeril] 5 mg PO TID PRN tablet 04/04/18 Losartan [Cozaar] 100 mg PO DAILY tablet 04/04/18 Metoprolol Tartrate [Lopressor] 100 mg PO BID tablet 04/04/18 - Allergies Allergies/Adverse Reactions: Allergies Allergy/AdvReac Type Severity Reaction Status Date / Time Penicillins Allergy Unknown Verified 08/05/18 11:28 Review of Systems - Constitutional Constitutional: reports: Weakness, Poor appetite. denies: Fever, Chills, Weight gain, Weight loss - Gastrointestinal Gastrointestinal: reports: Change in bowel habits, Nausea, Vomiting, Poor appetite. denies: Abdominal pain, Abdominal distention, Constipation, Diarrhea, Rectal bleeding, Black stools, Bloody stools, Domenic blood emesis, Coffee grounds emesis, Reflux/heartburn, Bloating Exam - Vital Signs Reviewed Vital Signs: Yes Vital Signs: Vital Signs x48h Temp Pulse Resp BP Pulse Ox 08/05/18 15:30 72 17 161/105 H 98 08/05/18 14:10 74 17 166/103 H 95 08/05/18 13:39 87 12 202/136 H 98 08/05/18 11:54 36.5 C 133 H 20 171/122 H 97 - Physical Exam General Appearance: positive: No acute distress, Alert, Mild distress Eyes Bilateral: positive: Normal inspection ENT: positive: Dry mucous membranes Neck: positive: Nml inspection, No JVD Respiratory: positive: Chest non-tender, No respiratory distress, Breath sounds nml. negative: Wheezes, Rales, Rhonchi Cardiovascular: positive: Regular rate & rhythm, Systolic murmur Abdomen: positive: Non-tender, No organomegaly, No distention, Abnml bowel sounds (hyperactive). negative: Guarding, Rebound, Hepatomegaly, Splenomegaly, Mass Skin: positive: Color nml, No rash, Warm, Dry Extremities: positive: No pedal edema. negative: Calf tenderness Neurologic/Psychiatric: positive: Oriented x3 Conclusion/Plan - Diagnosis Diagnosis: N/V of unclear etiology; most c/w partial SBO; no evidence of bowel ischemia, acute abdomen; significant volume depletion secondary to above. - Plan Plan: agree with observation, IVF, serial labs, exams, xrays. Consider gastrograffin small bowel study in am if not improved. Discussed with pt, Dr. Reyna. - Lab Results Fish Bones: 08/05/18 11:35 08/05/18 11:35 - Diagnostic Imaging Results Diagnostic Imaging Results: positive: Final report reviewed, Read independently Diagnostic Imaging Results Comments: plain films: NAD CT abd/pelvis: possible partial proximal SBO; possible thickening of descending/sigmoid colon, mild.
[2018-08-05] MEDS: SODIUM CHLORIDE FLUSH 0.9% 10 ML SYRINGE IVP SCH (17:12)
[2018-08-05] MEDS: SODIUM CHLORIDE 0.9% 1,000 ML IV SCH ×2 (17:12→23:34)
[2018-08-06 05:57] LABS: BASOPHILS # (AUTO) 0.1 10^3/uL (0.0-0.1); BASOPHILS % (AUTO) 1.1 %; EOSINOPHILS # (AUTO) 0.1 10^3/uL (0.0-0.7); EOSINOPHILS % (AUTO) 1.4 %; HGB - HEMOGLOBIN 13.1 g/dL (12.0-16.0); LYMPHOCYTES # (AUTO) 4.6 10^3/uL (1.5-3.5); LYMPHOCYTES % (AUTO) 44.8 %; MEAN CORPUSCULAR HEMOGLOBIN 26.9 pg (27.0-31.0); MEAN CORPUSCULAR HGB CONC 32.1 g/dL (32.0-36.0); MEAN CORPUSCULAR VOLUME 83.8 fL (81.0-99.0); MONOCYTES # (AUTO) 0.6 10^3/uL (0.0-1.0); NEUTROPHILS # (AUTO) 4.8 10^3/uL (1.5-6.6); NEUTROPHILS % (AUTO) 46.7 %; PLT - PLATELET COUNT 237 10^3/uL (130-450); RED BLOOD COUNT 4.89 10^6/uL (4.20-5.40); RED CELL DISTRIBUTION WIDTH 17.2 % (12.0-15.0); WHITE BLOOD COUNT 10.2 x10^3/uL (4.8-10.8)
[2018-08-06] MEDS: SODIUM CHLORIDE 0.9% 1,000 ML IV SCH (06:07)
[2018-08-06] MEDS: SODIUM CHLORIDE FLUSH 0.9% 10 ML SYRINGE IVP SCH ×2 (06:08→09:14)
[2018-08-06] MEDS: PANTOPRAZOLE 40 MG VIAL IVP SCH (06:08)
[2018-08-06 06:20] LABS: ALBUMIN 3.7 g/dL (3.2-5.5); ALBUMIN/GLOBULIN RATIO 1.6 (1.0-2.2); BILIRUBIN,TOTAL 0.9 mg/dL (0.2-1.0); CREATININE 0.7 mg/dL (0.4-1.0)
[2018-08-06 06:21] LABS: CALCIUM 8.3 mg/dL (8.5-10.3)
[2018-08-06 08:04] VITALS: BP 144/87
--- NOTE | 2018-08-06 08:56 | PROVIDER PROGRESS NOTE ---
Assessment/Plan - Problem List (1) SBO (small bowel obstruction) Assessment/Plan: Clinically improving. Rec: advance diet to full liquid; if tolerates well, OK to d/c home on low residue diet. Discussed with pt and Dr. Church - Current Meds Current Meds: Current Medications Generic Name Dose Route Start Last Admin Trade Name Freq PRN Reason Stop Dose Admin Sodium Chloride 1,000 mls @ 150 mls/hr 08/05/18 16:51 08/06/18 06:07 Normal Saline 0.9% IV 150 mls/hr .[id number] AMNA Administration Pantoprazole Sodium 40 mg 08/05/18 07:00 08/06/18 06:08 Protonix IVP 40 mg QDAC AMNA Administration Sodium Chloride 10 ml 08/05/18 17:00 08/06/18 06:08 Normal Saline Flush 0.9% IVP 10 ml 0100,0900,1700 AMNA Administration - Lab Result Lab results reviewed: Yes Fish Bone Diagrams: 08/06/18 05:41 08/06/18 05:41 - Additional Planning Condition/Complexity: Improved My Orders: My Active Orders 08/06/18 Lunch Full Liquid Diet [DIET] Plan Discussed with:: Patient Time Spent: 15-30 minutes Subjective - Subjective Patient Reports: Feeling Better (N/V resolved; passing flatus; no stool; hungry; tolerating sips clear liquids well), Resting Comfortably, No Complaints Objective Vital Signs: Vital Signs - 24 hr 08/05/18 08/05/18 08/05/18 11:54 13:39 14:10 Temperature 36.5 C Heart Rate 133 H 87 74 Heart Rate [ Brachial] Respiratory 20 12 17 Rate Blood Pressure 171/122 H 202/136 H 166/103 H Blood Pressure [Left Brachial artery] O2 Saturation 97 98 95 08/05/18 08/05/18 08/05/18 15:30 16:44 21:08 Temperature 36.6 C Heart Rate 72 Heart Rate [ 72 Brachial] Respiratory 17 16 Rate Blood Pressure 161/105 H Blood Pressure 158/105 H 133/85 H [Left Brachial artery] O2 Saturation 98 97 08/05/18 08/06/18 23:56 07:58 Temperature 36.7 C 37.2 C Heart Rate Heart Rate [ 73 94 Brachial] Respiratory 16 19 Rate Blood Pressure Blood Pressure 141/99 H 144/87 H [Left Brachial artery] O2 Saturation 97 99 Oxygen O2 Source Room air I&O (Last 24 Hrs): Intake and Output Totals x24h 08/04/18 08/05/18 08/06/18 23:59 23:59 23:59 Intake Total 3351 1000 Balance 3351 1000 General: Alert, Oriented x3, Cooperative, No acute distress Neck: Supple Neuro: Alert Abdomen: Normal bowel sounds (active to hyperactive bowel tones), Soft, No tenderness, No hepatospenomegaly, No masses, Other (nondistended) Extremities: No edema, No tenderness/swelling - Results Results: Laboratory Results WBC 10.2 x10^3/uL (4.8-10.8) 08/06/18 05:41 RBC 4.89 10^6/uL (4.20-5.40) 08/06/18 05:41 Hgb 13.1 g/dL (12.0-16.0) 08/06/18 05:41 Hct 40.9 % (37.0-47.0) 08/06/18 05:41 MCV 83.8 fL (81.0-99.0) 08/06/18 05:41 MCH 26.9 pg (27.0-31.0) L 08/06/18 05:41 MCHC 32.1 g/dL (32.0-36.0) 08/06/18 05:41 RDW 17.2 % (12.0-15.0) H 08/06/18 05:41 Plt Count 237 10^3/uL (130-450) 08/06/18 05:41 MPV 9.0 fL (7.9-10.8) 08/06/18 05:41 Neut # (Auto) 4.8 10^3/uL (1.5-6.6) 08/06/18 05:41 Lymph # (Auto) 4.6 10^3/uL (1.5-3.5) H 08/06/18 05:41 [place] # (Auto) 0.6 10^3/uL (0.0-1.0) 08/06/18 05:41 Eos # (Auto) 0.1 10^3/uL (0.0-0.7) 08/06/18 05:41 Baso # (Auto) 0.1 10^3/uL (0.0-0.1) 08/06/18 05:41 Absolute Nucleated RBC 0.01 x10^3/uL 08/06/18 05:41 Nucleated RBC % 0.1 /100WBC 08/06/18 05:41 Sodium 138 mmol/L (135-145) 08/06/18 05:41 Potassium 3.5 mmol/L (3.5-5.0) 08/06/18 05:41 Chloride 107 mmol/L (101-111) 08/06/18 05:41 Carbon Dioxide 26 mmol/L (21-32) 08/06/18 05:41 Anion Gap 5.0 (6-13) L 08/06/18 05:41 BUN 16 mg/dL (6-20) 08/06/18 05:41 Creatinine 0.7 mg/dL (0.4-1.0) 08/06/18 05:41 Estimated GFR (MDRD) 84 (>89) L 08/06/18 05:41 Glucose 90 mg/dL (70-100) 08/06/18 05:41 Calcium 8.3 mg/dL (8.5-10.3) L 08/06/18 05:41 Total Bilirubin 0.9 mg/dL (0.2-1.0) 08/06/18 05:41 AST 29 IU/L (10-42) 08/06/18 05:41 ALT 21 IU/L (10-60) 08/06/18 05:41 Alkaline Phosphatase 67 IU/L (42-121) 08/06/18 05:41 Total Protein 6.0 g/dL (6.7-8.2) L 08/06/18 05:41 Albumin 3.7 g/dL (3.2-5.5) 08/06/18 05:41 Globulin 2.3 g/dL (2.1-4.2) 08/06/18 05:41 Albumin/Globulin Ratio 1.6 (1.0-2.2) 08/06/18 05:41 Lipase 24 U/L (22-51) 08/05/18 11:35 Urine Color YELLOW 08/05/18 13:15 Urine Clarity CLEAR (CLEAR) 08/05/18 13:15 Urine pH 6.5 PH (5.0-7.5) 08/05/18 13:15 Ur Specific [place] 1.025 (1.002-1.030) 08/05/18 13:15 Urine Protein 30 mg/dL (NEGATIVE) H 08/05/18 13:15 Urine Glucose (UA) NEGATIVE mg/dL (NEGATIVE) 08/05/18 13:15 Urine Ketones TRACE mg/dL (NEGATIVE) 08/05/18 13:15 Urine Occult Blood SMALL (NEGATIVE) H 08/05/18 13:15 Urine Nitrite NEGATIVE (NEGATIVE) 08/05/18 13:15 Urine Bilirubin NEGATIVE (NEGATIVE) 08/05/18 13:15 Urine Urobilinogen 0.2 (NORMAL) E.U./dL (NORMAL) 08/05/18 13:15 Ur Leukocyte Esterase NEGATIVE (NEGATIVE) 08/05/18 13:15 Urine RBC 0-5 /HPF (0-5) 08/05/18 13:15 Urine WBC 4-5 /HPF (0-5) 08/05/18 13:15 Ur Squamous Epith Cells FEW Squamous (<= Few) 08/05/18 13:15 Urine Bacteria Rare /HPF (None Seen) 08/05/18 13:15 Urine Casts 3-5 Hyaline Casts /LPF 08/05/18 13:15 Urine Mucus Few Strands 08/05/18 13:15 Ur Microscopic Review INDICATED 08/05/18 13:15 Urine Culture Comments NOT INDICATED 08/05/18 13:15 - Procedures Procedures: Procedures BYPASS DESCENDING COLON TO CUTANEOUS, OPEN APPROACH (09/03/17) EXCISION OF ASCENDING COLON, OPEN APPROACH (09/03/17) EXCISION OF ILEUM, OPEN APPROACH (09/03/17) INSERTION OF INFUSION DEV INTO SUP VENA CAVA, PERC APPROACH (09/03/17) INTRODUCTION OF NUTRITIONAL INTO CENTRAL VEIN, PERC APPROACH (09/03/17) REPAIR SIGMOID COLON, PERCUTANEOUS ENDOSCOPIC APPROACH (02/05/18) RESECTION OF SIGMOID COLON, OPEN APPROACH (09/03/17) RESPIRATORY VENTILATION, GREATER THAN 96 CONSECUTIVE HOURS (09/03/17) TRANSFUSE NONAUT RED BLOOD CELLS IN CENTRAL VEIN, PERC (09/03/17) ABX Reporting Has patient been on IV antibiotics over the past 48 hours?: No
[2018-08-06] MEDS ORDERED: ENOXAPARIN 40 MG/0.4 ML SYRINGE SUBQ SCH (09:00)
[2018-08-06] MEDS ORDERED: POLYETHYLENE GLYCOL 3350 17 GM PACKET PO SCH (09:00)
--- NOTE | 2018-08-06 09:28 | Discharge Plan ---
Discharge Plan Disposition: 01 Home, Self Care Condition: Fair Diet: Soft Activity Restrictions: Activity as Tolerated Shower Restrictions: No Driving Restrictions: No Additional Instructions or Follow Up instructions: Advance your diet as tolerated. Resume your pre-hospital medications. See your PCP in routine follow-up. Return to the ER for any new or worsening symptoms. No Smoking: If you smoke, Please STOP! Call for help. Follow-up with: Sasha Wilcox ARNP [Primary Care Provider] -
--- NOTE | 2018-08-06 09:36 | XRAY Report ---
Reason: fu of sbo Procedure Date: 08/06/2018 Accession Number: [id number] / [id number] Procedure: XR - Abdomen 1 View X-Ray CPT Code: 07193 FULL RESULT: EXAM: ABDOMEN RADIOGRAPHY EXAM DATE: 08/06/2018 08:54 AM. CLINICAL HISTORY: Follow-up of small bowel obstruction. COMPARISON: Abdomen acute 08/05/2018 12:09 PM. TECHNIQUE: 1 view. FINDINGS: Bowel Gas Pattern: Within normal limits. No dilated loops. Other: None. IMPRESSION: Nonobstructive bowel gas pattern with gas seen in the descending colon. RADIA
--- NOTE | 2018-08-08 21:07 | DISCHARGE SUMMARY ---
Physician: Roxanna Prieto MD DATE OF ADMISSION: 08/05/2018 DATE OF DISCHARGE: 08/06/2018 HISTORY OF PRESENT ILLNESS: This is a 63-year-old white female with a history of admissions for small-bowel obstruction, Her first admission was August 2017 when she had necrotic terminal ileum and a perforated sigmoid colon, which was resected, and then a second-look laparotomy was done. She had an ileal right colonic anastomosis performed with a descending colostomy. The pathology showed evidence of ischemia and necrosis of the ileum. She recovered and underwent a colostomy closure in 01/2018. In March, she had small bowel obstruction presenting with nausea, vomiting and severe abdominal pain. One month later, she had another admission for partial bowel obstruction, which was also managed medically. She now presents with 1 day of nausea, vomiting and abdominal pain, unable to keep any liquids down and was urged to come in before her usual delay in presentation as previous times. She was placed in Observation status for treatment with bowel rest, anti-emetics and IV fluids. DISCHARGE DIAGNOSES: 1. Partial small-bowel obstruction. Patient had imaging done that showed mild dilation of the proximal small bowel consistent with partial small-bowel obstruction and diffuse wall thickening in the distal descending and proximal sigmoid colon, suspicious for enteritis and mild diverticulosis was seen. With IV hydration, bowel rest, and antiemetics, her symptoms resolved and her diet was advanced and she was comfortable with p.o. pain medications and a soft diet, and was discharged home. 2. Acute kidney injury due to hypovolemia. The patient's admission labs showed a BUN of 28 and creatinine of 1.3, which improved to 16 and 0.7 after hydration. 3. Hypertension. The patient's admitting blood pressure was 171/122, and was as high as 202/136, and was felt to be due to pain as well as underlying hypertension. Her oral Cozaar was able to be restarted after one day and she was discharged with plan to resume her previous blood pressure medications. BP was controled at time of discharge. ALLERGIES: PENICILLIN. MEDICATIONS AT THE TIME OF DISCHARGE: 1. Flexeril 5 mg t.i.d. p.r.n. 2. Cozaar 100 mg daily. 3. Metoprolol tartrate 100 mg, unknown frequency. 4. Multivitamin daily. LABORATORY AND IMAGING: Reviewed and summarized above. CONDITION AT DISCHARGE: Stable. PHYSICAL EXAMINATION: VITAL SIGNS: Blood pressure 140/87, heart rate 90 in sinus rhythm, afebrile and room air saturation 99%. HEENT: Unremarkable. NECK: No JVD. CHEST: Clear. HEART: Heart sounds normal. ABDOMEN: Soft with positive bowel sounds. Nontender. No organomegaly. No guarding. No rebound. EXTREMITIES: Normal. NEUROLOGIC: Normal. FOLLOWUP: With her PCP in 1 week, and developer automatic if required. CODE STATUS: FULL CODE. Time required to complete this entire discharge: 30 minutes. TD: 08/08/2018 19:21 CARRIE
== END 2018-08-06 10:10 | disposition home or self-care (01) ==
LOC: ED 11:02 → INTOOBSV 15:54 → MS2 15:54
PROVIDERS: ADMIT Specialist; ATTEND Internal Medicine
DX: K56.600 Partial intestinal obstruction, unspecified as to cause (principal); E86.1 Hypovolemia; N17.9 Acute kidney failure, unspecified; I10 Essential (primary) hypertension; D72.829 Elevated white blood cell count, unspecified; Z90.49 Acquired absence of other specified parts of digestive tract
CPT/HCPCS: 36415; 74018; 74022; 74177; 80053; 81001; 83690; 85025; 96361; 96365; 96375; 99284; 99285; A9270; G0378; J1170; J7040; Q9967; 81003; 87086

== ENCOUNTER 2018-11-19 10:43 | Outpatient (CLI) | payer MEDICARE, OTHER ==
[2018-11-19] MEDS ORDERED: IOVERSOL 320 50 ML VIAL ONE (10:52)
[2018-11-19] MEDS ORDERED: IOVERSOL 320 100 ML VIAL IVP ONE ×2 (10:52→12:50)
[2018-11-19 10:58] LABS: BASOPHILS # (AUTO) 0.1 10^3/uL (0.0-0.1); BASOPHILS % (AUTO) 1.6 %; EOSINOPHILS # (AUTO) 0.1 10^3/uL (0.0-0.7); EOSINOPHILS % (AUTO) 1.3 %; HGB - HEMOGLOBIN 13.7 g/dL (12.0-16.0); LYMPHOCYTES # (AUTO) 3.1 10^3/uL (1.5-3.5); LYMPHOCYTES % (AUTO) 41.2 %; MEAN CORPUSCULAR HEMOGLOBIN 28.6 pg (27.0-31.0); MEAN CORPUSCULAR HGB CONC 32.2 g/dL (32.0-36.0); MEAN CORPUSCULAR VOLUME 88.8 fL (81.0-99.0); MEAN PLATELET VOLUME 8.3 fL (7.9-10.8); MONOCYTES # (AUTO) 0.3 10^3/uL (0.0-1.0); MONOCYTES % (AUTO) 4.5 %; NEUTROPHILS # (AUTO) 3.9 10^3/uL (1.5-6.6); NEUTROPHILS % (AUTO) 51.4 %; PLT - PLATELET COUNT 250 10^3/uL (130-450); RED BLOOD COUNT 4.79 10^6/uL (4.20-5.40); WHITE BLOOD COUNT 7.6 x10^3/uL (4.8-10.8)
[2018-11-19 11:10] LABS: ALBUMIN 4.5 g/dL (3.2-5.5); ALBUMIN/GLOBULIN RATIO 1.5 (1.0-2.2); BILIRUBIN,TOTAL 0.4 mg/dL (0.2-1.0); CALCIUM 8.9 mg/dL (8.5-10.3); CREATININE 0.7 mg/dL (0.4-1.0); TOTAL PROTEIN 7.6 g/dL (6.7-8.2)
[2018-11-19] MEDS ORDERED: IOVERSOL 320 50 ML VIAL PO ONE (12:50)
--- NOTE | 2018-11-19 15:35 | CT Report ---
Reason: WEIGHT LOSS/NAUSEA/VOMITING Procedure Date: 11/19/2018 Accession Number: [id number] / [id number] Procedure: CT - Abdomen/Pelvis W CPT Code: FULL RESULT: EXAM: CT ABDOMEN AND PELVIS WITH CONTRAST. EXAM DATE: 11/19/2018 12:21 PM. CLINICAL HISTORY: Weight loss/nausea/vomiting. COMPARISONS: Abdomen/pelvis with 08/05/2018 1:58 PM. TECHNIQUE: Routine helical CT imaging was performed through the abdomen and pelvis. IV contrast: OPTI 320 90 mL. Enteric contrast: Yes. Reconstructions: Coronal and sagittal. In accordance with CT protocol optimization, one or more of the following dose reduction techniques were utilized for this exam: automated exposure control, adjustment of mA and/or KV based on patient size, or use of iterative reconstructive technique. FINDINGS: Lung Bases: Unremarkable. Liver: Normal. No masses. Gallbladder/Bile Ducts: Unremarkable. Spleen: Normal. Pancreas: Normal. Adrenal Glands: Normal. Kidneys: Normal. No masses or hydronephrosis. Peritoneal Cavity/Bowel: Small amount of contrast within the lower esophagus, presumed gastric reflux. The patient is status post bowel resection. Mild diverticulosis. No free fluid, free air or adenopathy. No masses or acute inflammatory process. Pelvic Organs: Normal. The bladder and visualized pelvic organs are within normal limits. Vasculature: No aneurysms or other significant abnormality. Bones: No significant abnormality. Other: None. IMPRESSION: The etiology of the patient's weight loss, nausea and vomiting is not identified. RADIA
== END 2018-11-19 10:44 | disposition home or self-care (01) ==
LOC: DI 10:43
PROVIDERS: ATTEND Surgery
DX: R11.2 Nausea with vomiting, unspecified (principal); R63.4 Abnormal weight loss
CPT/HCPCS: 36415; 74177; 80053; 85025; Q9967

== ENCOUNTER 2018-12-09 07:50 | Emergency (ER) | payer MEDICARE, OTHER ==
[2018-12-09] MEDS ORDERED: PROMETHAZINE INJ 25 MG in SODIUM CHLORIDE 0.9% 50 ML IV STA (08:34)
[2018-12-09] MEDS ORDERED: SODIUM CHLORIDE 0.9% 1,000 ML IV ONE ×2 (08:34→09:40)
--- NOTE | 2018-12-09 08:52 | ED Physician Documentation ---
History of Present Illness - Stated complaint Stated Complaint: VOMITING - Chief complaint Chief Complaint: Abd Pain - History obtained from History obtained from: Patient - History of Present Illness Timing: Yesterday Pain level max: 5 Pain level now: 5 - Additonal information Additional information: 63-year-old female states that she has a history of cyclical vomiting syndrome and started vomiting last night. Used to have Phenergan suppositories but has run out of those. Recently had a colostomy reversed. She is not having fevers. Does have chronic diarrhea. Worse with trying to eat or drink. Nothing makes it better. Review of Systems Ten Systems: 10 systems reviewed and negative Constitutional: denies: Fever, Chills Cardiac: denies: Chest pain / pressure Respiratory: denies: Cough GI: reports: Nausea, Vomiting, Diarrhea Skin: denies: Rash Musculoskeletal: denies: Neck pain, Back pain Neurologic: denies: Headache PD PAST MEDICAL HISTORY - Past Medical History Cardiovascular: Hypertension, High cholesterol, Murmur, Other Respiratory: Other Neuro: None Endocrine/Autoimmune: None GI: Chronic constipation, Other SKI PATROL: None : None HEENT: None Psych: None Musculoskeletal: None Derm: None - Past Surgical History Past Surgical History: No General: Bowel surgery, Gastric surgery, Other - Present Medications Home Medications: Ambulatory Orders Medication Instructions Recorded Confirmed Multivitamin W/Minerals [Theragran 1 tab PO DAILYWM tablet 09/17/17 03/30/18 M] Cyclobenzaprine [Flexeril] 5 mg PO TID PRN tablet 04/04/18 Losartan [Cozaar] 100 mg PO DAILY tablet 04/04/18 Metoprolol Tartrate [Lopressor] 100 mg PO BID tablet 04/04/18 Ciprofloxacin HCl [Cipro] 500 mg PO BID #20 tablet 12/09/18 Hydrocodone/Acetaminophen 1 - 2 each PO Q6H PRN #10 tablet 12/09/18 [Hydrocodon-Acetaminophen 5-325] Metronidazole [Flagyl] 500 mg PO TID #30 tablet 12/09/18 Promethazine Supp [Phenergan Supp] 25 mg [place] Q6H PRN #20 supp 12/09/18 - Allergies Allergies/Adverse Reactions: Allergies Allergy/AdvReac Type Severity Reaction Status Date / Time Penicillins Allergy Unknown Verified 12/09/18 08:02 - Social History Does the pt smoke?: No Smoking Status: Never smoker Does the pt drink ETOH?: No Does the pt have substance abuse?: No - Immunizations Immunizations are current?: Yes - POLST Patient has POLST: Yes POLST Status: DNR PD ED PE NORMAL - Vitals Vital signs reviewed: Yes - General General: Alert and oriented X 3, No acute distress - HEENT HEENT: Other (Dry lips and tongue) - Neck Neck: Supple, no meningeal sign - Cardiac Cardiac: RRR - Respiratory Respiratory: No respiratory distress, Clear bilaterally - Abdomen Abdomen: Soft, Non tender, Non distended, Other (Well-healing incision. No sign of Infection) - Back Back: No spinal TTP - Derm Derm: Warm and dry - Extremities Extremities: No edema, No calf tenderness / cord - Neuro Neuro: Alert and oriented X 3 Results - Vitals Vitals: Vital Signs - 24 hr 12/09/18 12/09/18 12/09/18 07:59 10:37 12:09 Temperature 36.4 C L 37.2 C Heart Rate 82 82 75 Respiratory 20 18 16 Rate Blood Pressure 210/136 H 234/133 H 153/107 H O2 Saturation 100 98 97 Oxygen O2 Source Room air - Labs Labs: Laboratory Tests 12/09/18 12/09/18 12/09/18 09:11 09:11 Unknown WBC 16.7 H RBC 5.42 H Hgb 15.5 Hct 46.2 MCV 85.1 MCH 28.6 MCHC 33.6 RDW 15.3 H Plt Count 269 MPV 8.8 Neut # (Auto) 11.1 H Lymph # (Auto) 4.9 H [place] # (Auto) 0.5 Eos # (Auto) 0.0 Baso # (Auto) 0.1 Absolute Nucleated RBC 0.00 Nucleated RBC % 0.0 Sodium 134 L Potassium 3.0 L Chloride 93 L Carbon Dioxide 25 Anion Gap 16.0 H BUN 28 H Creatinine 0.9 Estimated GFR (MDRD) 63 L Glucose 172 H Calcium 10.3 Total Bilirubin 1.4 H AST 28 ALT 23 Alkaline Phosphatase 75 Total Protein 8.2 Albumin 5.4 Globulin 2.8 Albumin/Globulin Ratio 1.9 Lipase 28 Urine Color YELLOW Urine Clarity HAZY Urine pH 6.5 Ur Specific [place] 1.025 Urine Protein 100 H Urine Glucose (UA) 250 H Urine Ketones 15 H Urine Occult Blood SMALL H Urine Nitrite NEGATIVE Urine Bilirubin NEGATIVE Urine Urobilinogen 0.2 (NORMAL) Ur Leukocyte Esterase NEGATIVE Urine RBC 0-5 Urine WBC 0-3 Ur Squamous Epith Cells MOD Squamous H Urine Bacteria Rare Urine Mucus Few Strands Ur Microscopic Review INDICATED Urine Culture Comments NOT INDICATED - Rads (name of study) CT abd/pelvis Radiology: Prelim report reviewed, EMP read contemporaneously, See rad report (Mild diverticulosis and circumferential bowel wall thickening in the proximal sigmoid colon, suggestive of acute diverticulitis. No evidence of perforation or abscess formation. 2. No evidence of bowel obstruction. There is evidence of prior bowel resections and anastomoses. ) PD MEDICAL DECISION MAKING - ED course Complexity details: reviewed results, re-evaluated patient, considered differential, d/w patient ED course: 63-year-old female presents to the emergency department with abdominal pain vomiting diarrhea. Appears to have diverticulitis on CT scan. Given Cipro and Flagyl. Tolerating p.o. without difficulty here. Will follow up with her doctor for further care. Patient counseled regarding signs and symptoms for which I believe and urgent re-evaluation would be necessary. Patient with good understanding of and agreement to plan and is comfortable going home at this time This document was made in part using voice recognition software. While efforts are made to proofread this document, sound alike and grammatical errors may occur. Departure - Departure Disposition: 01 Home, Self Care Clinical Impression: Diverticulitis Vomiting Qualifiers: Vomiting type: unspecified Vomiting Intractability: non-intractable Nausea presence: with nausea Qualified Code(s): R11.2 - Nausea with vomiting, unspecified Condition: Good Instructions: ED Diverticulitis, ED Nausea Vomiting Follow-Up: Sasha Wilcox ARNP [Primary Care Provider] - Within 1 week Prescriptions: Ciprofloxacin HCl [Cipro] 500 mg PO BID #20 tablet Hydrocodone/Acetaminophen [Hydrocodon-Acetaminophen 5-325] 1 - 2 each PO Q6H PRN #10 tablet PRN Reason: pain Metronidazole [Flagyl] 500 mg PO TID #30 tablet Promethazine Supp [Phenergan Supp] 25 mg [place] Q6H PRN #20 supp PRN Reason: Nausea / Vomiting Comments: Drink plenty of fluids and rest. Return if you worsen. Take all antibiotics until gone.
[2018-12-09 09:15] LABS: BASOPHILS # (AUTO) 0.1 10^3/uL (0.0-0.1); BASOPHILS % (AUTO) 0.4 %; EOSINOPHILS % (AUTO) 0.1 %; HGB - HEMOGLOBIN 15.5 g/dL (12.0-16.0); LYMPHOCYTES # (AUTO) 4.9 10^3/uL (1.5-3.5); LYMPHOCYTES % (AUTO) 29.5 %; MEAN CORPUSCULAR HEMOGLOBIN 28.6 pg (27.0-31.0); MEAN CORPUSCULAR HGB CONC 33.6 g/dL (32.0-36.0); MEAN CORPUSCULAR VOLUME 85.1 fL (81.0-99.0); MEAN PLATELET VOLUME 8.8 fL (7.9-10.8); MONOCYTES # (AUTO) 0.5 10^3/uL (0.0-1.0); MONOCYTES % (AUTO) 3.3 %; NEUTROPHILS # (AUTO) 11.1 10^3/uL (1.5-6.6); NEUTROPHILS % (AUTO) 66.7 %; PLT - PLATELET COUNT 269 10^3/uL (130-450); RED BLOOD COUNT 5.42 10^6/uL (4.20-5.40); RED CELL DISTRIBUTION WIDTH 15.3 % (12.0-15.0); WHITE BLOOD COUNT 16.7 x10^3/uL (4.8-10.8)
[2018-12-09 09:21] LABS: BILIRUBIN,URINE NEGATIVE (NEGATIVE); GLUCOSE, URINE (UA) 250 mg/dL (NEGATIVE); KETONES,URINE (UA) 15 mg/dL (NEGATIVE); LEUKOCYTE ESTERASE, URINE NEGATIVE (NEGATIVE); NITRITE,URINE NEGATIVE (NEGATIVE); OCCULT BLOOD,URINE SMALL (NEGATIVE); PH,URINE 6.5 PH (5.0-7.5); PROTEIN,URINE 100 mg/dL (NEGATIVE); UROBILINOGEN,URINE 0.2 (NORMAL) E.U./dL (NORMAL)
[2018-12-09 09:22] LABS: CLARITY,URINE HAZY (CLEAR)
[2018-12-09 09:25] LABS: RBC,URINE 0-5 /HPF (0-5); SQUAMOUS EPITHELIAL CELL,UR MOD Squamous (<= Few)
[2018-12-09 09:26] LABS: BACTERIA,URINE Rare /HPF (None Seen); MUCUS,URINE Few Strands
[2018-12-09 09:28] LABS: ALBUMIN 5.4 g/dL (3.2-5.5); ALBUMIN/GLOBULIN RATIO 1.9 (1.0-2.2); BILIRUBIN,TOTAL 1.4 mg/dL (0.2-1.0); CALCIUM 10.3 mg/dL (8.5-10.3); CREATININE 0.9 mg/dL (0.4-1.0); TOTAL PROTEIN 8.2 g/dL (6.7-8.2)
[2018-12-09] MEDS ORDERED: ONDANSETRON 4 MG/2 ML VIAL IVP STA (10:37)
[2018-12-09] MEDS ORDERED: IOPAMIDOL-300 100 ML VIAL ONE (10:41)
--- NOTE | 2018-12-09 11:50 | CT Report ---
Reason: diffuse abd pain, vomiting Procedure Date: 12/09/2018 Accession Number: [id number] / [id number] Procedure: CT - Abdomen/Pelvis W CPT Code: FULL RESULT: EXAM: CT ABDOMEN AND PELVIS EXAM DATE: 12/09/2018 11:25 AM. CLINICAL HISTORY: Diffuse abd pain, vomiting. COMPARISONS: ABDOMEN/PELVIS W/ 11/19/2018 11:58 AM. TECHNIQUE: Routine helical CT imaging was performed through the abdomen and pelvis. IV contrast: ISOVUE 300 100mL. Enteric contrast: No. Reconstructions: Coronal and sagittal. The abdominal portion of the skin was repeated due to motion artifact on the initial images. In accordance with CT protocol optimization, one or more of the following dose reduction techniques were utilized for this exam: automated exposure control, adjustment of mA and/or KV based on patient size, or use of iterative reconstructive technique. FINDINGS: Lung Bases: No consolidation or other significant abnormality. There is a small fat-containing right Bochdalek hernia, unchanged. Liver: Normal. No masses. Gallbladder/Bile Ducts: Unremarkable. Spleen: Normal. Pancreas: Normal. Adrenal Glands: Normal. Kidneys: Small cortical cysts at the superior and inferior pole of the left kidney appear unchanged. No masses or hydronephrosis. Peritoneal Cavity/Bowel: There is evidence of prior bowel resections, as seen on the previous exam. No evidence of bowel obstruction. No abnormal colonic stool burden. There is mild diverticulosis of the proximal sigmoid colon with a segment of mild circumferential bowel wall thickening (series 3, images 64-69 and series 5, images 20-31). No free fluid, free air or adenopathy. No masses. The appendix is not visualized and is presumably surgically absent given the surgical staple lines at the ileocecal junction. Pelvic Organs: Normal. The bladder and visualized pelvic organs are within normal limits. Vasculature: There is mild atherosclerotic calcification of the abdominal aorta and bilateral common iliac arteries. No aneurysms or other significant abnormality. Bones: No acute osseous abnormality. There is mild S-shaped curvature of the lower thoracic and lumbar spine, similar to prior. Other: None. IMPRESSION: 1. Mild diverticulosis and circumferential bowel wall thickening in the proximal sigmoid colon, suggestive of acute diverticulitis. No evidence of perforation or abscess formation. 2. No evidence of bowel obstruction. There is evidence of prior bowel resections and anastomoses. RADIA
[2018-12-09] MEDS ORDERED: CIPROFLOXACIN 400 MG/200 ML 200 ML IV ONE (12:51)
[2018-12-09] MEDS ORDERED: IOPAMIDOL-300 100 ML VIAL IVP ONE (13:10)
[2018-12-09] MEDS ORDERED: metroNIDAZOLE 500 MG/100 ML 500 MG/100 ML BAG IV STA (14:30)
[2018-12-09 15:55] VITALS: BP 155/134
== END 2018-12-09 16:00 | disposition home or self-care (01) ==
LOC: ED 07:50
DX: K57.32 Diverticulitis of large intestine without perforation or abscess without bleeding (principal); I10 Essential (primary) hypertension
CPT/HCPCS: 36415; 74177; 80053; 81001; 83690; 85025; 96361; 96365; 96367; 96375; 99283; 99284; J7040; Q9967; 81003; 87086

== ENCOUNTER 2019-06-19 10:13 | Outpatient (CLI) | payer MEDICARE, OTHER ==
[2019-06-19 17:14] LABS: BASOPHILS # (AUTO) 0.1 10^3/uL (0.0-0.1); BASOPHILS % (AUTO) 0.7 %; EOSINOPHILS # (AUTO) 0.2 10^3/uL (0.0-0.7); EOSINOPHILS % (AUTO) 1.5 %; HGB - HEMOGLOBIN 15.6 g/dL (12.0-16.0); LYMPHOCYTES # (AUTO) 3.9 10^3/uL (1.5-3.5); LYMPHOCYTES % (AUTO) 38.9 %; MEAN CORPUSCULAR HGB CONC 31.9 g/dL (32.0-36.0); MEAN PLATELET VOLUME 13.6 fL (7.9-10.8); MONOCYTES # (AUTO) 0.7 10^3/uL (0.0-1.0); MONOCYTES % (AUTO) 7.1 %; NEUTROPHILS # (AUTO) 5.2 10^3/uL (1.5-6.6); NEUTROPHILS % (AUTO) 51.3 %; RED CELL DISTRIBUTION WIDTH 14.7 % (12.0-15.0); WHITE BLOOD COUNT 10.1 x10^3/uL (4.8-10.8)
[2019-06-19 17:49] LABS: PLATELET ESTIMATE, MANUAL NORMAL (130-450,000) (NORMAL)
[2019-06-19 17:50] LABS: PLATELET MORPHOLOGY PLATELET CLUMPING (NORMAL)
[2019-06-19 17:51] LABS: RBC MORPHOLOGY (MULTIPLE) NORMAL APPEARANCE (NORMAL)
== END 2019-06-19 10:14 | disposition home or self-care (01) ==
LOC: LAB.S 10:13
PROVIDERS: ATTEND Physician Assistant Medical
DX: R10.32 Left lower quadrant pain (principal); R53.83 Other fatigue
CPT/HCPCS: 36415; 80053; 84443; 85025

== ENCOUNTER 2019-06-25 11:55 | Outpatient (CLI) | payer MEDICARE, OTHER ==
[2019-06-25 12:08] LABS: BASOPHILS # (AUTO) 0.1 10^3/uL (0.0-0.1); BASOPHILS % (AUTO) 0.7 %; EOSINOPHILS # (AUTO) 0.1 10^3/uL (0.0-0.7); EOSINOPHILS % (AUTO) 0.9 %; HGB - HEMOGLOBIN 14.4 g/dL (12.0-16.0); LYMPHOCYTES # (AUTO) 3.8 10^3/uL (1.5-3.5); LYMPHOCYTES % (AUTO) 36.8 %; MEAN CORPUSCULAR HEMOGLOBIN 29.5 pg (27.0-31.0); MEAN CORPUSCULAR HGB CONC 31.9 g/dL (32.0-36.0); MEAN CORPUSCULAR VOLUME 92.6 fL (81.0-99.0); MEAN PLATELET VOLUME 10.7 fL (7.9-10.8); MONOCYTES # (AUTO) 0.7 10^3/uL (0.0-1.0); MONOCYTES % (AUTO) 6.5 %; NEUTROPHILS # (AUTO) 5.7 10^3/uL (1.5-6.6); NEUTROPHILS % (AUTO) 54.6 %; PLT - PLATELET COUNT 230 10^3/uL (130-450); RED BLOOD COUNT 4.88 10^6/uL (4.20-5.40); RED CELL DISTRIBUTION WIDTH 14.7 % (12.0-15.0); WHITE BLOOD COUNT 10.4 x10^3/uL (4.8-10.8)
[2019-06-25 12:25] LABS: ALBUMIN 4.3 g/dL (3.2-5.5); ALBUMIN/GLOBULIN RATIO 1.5 (1.0-2.2); BILIRUBIN,TOTAL 0.3 mg/dL (0.2-1.0); CALCIUM 9.2 mg/dL (8.5-10.3); CREATININE 0.7 mg/dL (0.4-1.0); TOTAL PROTEIN 7.2 g/dL (6.7-8.2)
[2019-06-25] MEDS ORDERED: IOVERSOL 320 50 ML VIAL ONE (12:27)
[2019-06-25] MEDS ORDERED: IOVERSOL 320 100 ML VIAL IVP ONE ×2 (12:27→13:08)
[2019-06-25] MEDS ORDERED: IOVERSOL 320 50 ML VIAL PO ONE (13:08)
--- NOTE | 2019-06-26 11:22 | CT Report ---
Reason: LLQ ABDOMINAL PAIN Procedure Date: 06/25/2019 Accession Number: [id number] / [id number] Procedure: CT - Abdomen/Pelvis W CPT Code: FULL RESULT: EXAM: CT ABDOMEN AND PELVIS EXAM DATE: 06/25/2019 01:07 PM. CLINICAL HISTORY: Left lower quadrant abdominal pain. COMPARISONS: ABDOMEN/PELVIS W/ 12/09/2018 11:12 AM. TECHNIQUE: Routine helical CT imaging was performed through the abdomen and pelvis. IV contrast: 100 mL Optiray 320. Enteric contrast: Yes. Reconstructions: Coronal and sagittal. In accordance with CT protocol optimization, one or more of the following dose reduction techniques were utilized for this exam: automated exposure control, adjustment of mA and/or KV based on patient size, or use of iterative reconstructive technique. FINDINGS: Lung Bases: Unremarkable. Liver: Normal. No masses. Gallbladder/Bile Ducts: Unremarkable. Spleen: Normal. Pancreas: Normal. Adrenal Glands: Normal. Kidneys: Normal. No masses or hydronephrosis. Peritoneal Cavity/Bowel: Intact anastomosis sutures at the proximal colon and distal sigmoid. There is long segment mural thickening of the colon from the distal transverse colon to the anastomosis sutures of the distal sigmoid. No discrete diverticuli are seen. There is mild pericolonic fat stranding involving the descending colon. No abscess or free air. Findings are compatible with colitis. Patient's oral bolus is predominantly within the normal-appearing small bowel. The appendix is not visualized. Pelvic Organs: Normal. The bladder and visualized pelvic organs are within normal limits. Vasculature: No aneurysms or other significant abnormality. Bones: No significant abnormality. Other: None. IMPRESSION: Findings compatible with colitis. No abscess or free air identified. No bowel obstruction. RADIA
== END 2019-06-25 11:56 | disposition home or self-care (01) ==
LOC: LAB 11:55
PROVIDERS: ATTEND Physician Assistant Medical
DX: R10.32 Left lower quadrant pain (principal); R53.83 Other fatigue
CPT/HCPCS: 36415; 74177; Q9967; 80053; 84443; 85025

== ENCOUNTER 2019-08-08 07:14 | Day surgery (SDC) | payer MEDICARE, OTHER ==
[2019-08-08] MEDS ORDERED: MIDAZOLAM 2 MG/2 ML VIAL IVP ONE (07:15)
[2019-08-08] MEDS ORDERED: fentaNYL 250 MCG/5 ML VIAL IVP ONE (07:15)
[2019-08-08] MEDS ORDERED: LACTATED RINGERS 1,000 ML IV ONE (07:39)
[2019-08-08] MEDS ORDERED: ONDANSETRON 4 MG/2 ML VIAL ONE (13:41)
[2019-08-08 13:59] VITALS: BP 151/102
== END 2019-08-08 07:15 | disposition home or self-care (01) ==
LOC: SDS 07:14
PROVIDERS: ATTEND Surgery
PROC: 0DBN8ZZ Excision of Sigmoid Colon, Via Natural or Artificial Opening Endoscopic (ICD-10-PCS; principal; 2019-08-08 10:00)
DX: R10.32 Left lower quadrant pain (principal); K59.00 Constipation, unspecified; D12.5 Benign neoplasm of sigmoid colon; K62.4 Stenosis of anus and rectum; I10 Essential (primary) hypertension; Z79.899 Other long term (current) drug therapy; Z87.891 Personal history of nicotine dependence
CPT/HCPCS: 45380; J3010; J7120

== ENCOUNTER 2019-12-06 09:17 | Emergency (ER) | payer MEDICARE, OTHER ==
[2019-12-06] MEDS ORDERED: HYDROmorphone 1 MG/ML SYRINGE IVP STA ×2 (09:33→13:13)
[2019-12-06] MEDS ORDERED: ONDANSETRON 4 MG/2 ML VIAL IVP STA ×2 (09:33→13:13)
[2019-12-06] MEDS ORDERED: ONDANSETRON 4 MG/2 ML VIAL ONE (09:36)
[2019-12-06] MEDS ORDERED: HYDROmorphone 1 MG/ML CARPUJECT ONE (09:36)
[2019-12-06 09:57] LABS: BASOPHILS % (AUTO) 0.4 %; LYMPHOCYTES % (AUTO) 22.1 %; MEAN CORPUSCULAR HGB CONC 33.1 g/dL (32.0-36.0); MEAN CORPUSCULAR VOLUME 87.8 fL (81.0-99.0); MEAN PLATELET VOLUME 11.2 fL (7.9-10.8); MONOCYTES % (AUTO) 2.7 %; NEUTROPHILS % (AUTO) 74.1 %; PLT - PLATELET COUNT 301 10^3/uL (130-450); RED BLOOD COUNT 5.51 10^6/uL (4.20-5.40); RED CELL DISTRIBUTION WIDTH 13.2 % (12.0-15.0); WHITE BLOOD COUNT 21.3 x10^3/uL (4.8-10.8)
--- NOTE | 2019-12-06 10:01 | ED Physician Documentation ---
PD HPI NVD - Stated complaint Stated Complaint: ABD PX - Chief complaint Chief Complaint: Abd Pain - History obtained from History obtained from: Patient, Friend - History of Present Illness Timing - onset: How many days ago (4) Timing - duration: Days (4) Timing - details: Gradual onset, Still present Associated symptoms: Abdominal pain, Dizzy Contributing factors: Other (bowel surgery) Improved by: Vomiting Worsened by: Moving, Position, Palpation Similar symptoms before: Diagnosis (perforated viscus with ruptured diverticula, small bowel obstruction, partial small bowel obstruction.) Recently seen: Clinic - Additonal information Additional information: 64-year-old female with a history of malignant hypertension and cyclical vomiting has had ruptured diverticula and ischemic bowel in August 2017 requiring emergent surgery. She has eventually recovered from this and had reversal of her colostomy. She had this colostomy takedown done in January 2018. She has had some episodes of bowel obstruction and partial bowel obstruction previously. Today she notes that she has severe pain and vomiting and she has had increased pain and vomiting over the past 3 days. She states that she had a bowel movement today and that she is only having a bowel movement if she uses a laxative. She has been placed on to some MiraLAX which she is now taking regula rly. She has had prior bowel obstruction she is having severe pain and is come to the emergency department with pain and vomiting. She has an history of subacute aortic stenosis and fluid retention from fluid resuscitation. Review of Systems Constitutional: denies: Fever Eyes: denies: Decreased vision Ears: denies: Ear pain Nose: denies: Congestion Throat: denies: Sore throat Cardiac: denies: Chest pain / pressure, Palpitations Respiratory: denies: Dyspnea, Cough GI: reports: Abdominal Pain, Nausea, Vomiting, Constipation : denies: Dysuria, Frequency Skin: denies: Rash Musculoskeletal: denies: Neck pain, Back pain Neurologic: reports: Generalized weakness. denies: Focal weakness, Numbness PD PAST MEDICAL HISTORY - Past Medical History Cardiovascular: Hypertension Respiratory: None Neuro: None Endocrine/Autoimmune: None GI: Other RUG WASHER: None : None HEENT: None Psych: None Musculoskeletal: None Derm: None - Past Surgical History Past Surgical History: No General: Bowel surgery - Present Medications Home Medications: Ambulatory Orders Medication Instructions Recorded Confirmed Losartan [Cozaar] 100 mg PO DAILY tablet 04/04/18 08/08/19 Metoprolol Tartrate [Lopressor] 100 mg PO DAILY 08/07/19 08/08/19 Oxycodone HCl/Acetaminophen 1 - 2 each PO Q6H PRN #14 tablet 12/06/19 [Percocet 5-325 mg Tablet] Prochlorperazine [Compazine] 10 mg PO Q6H #15 tablet 12/06/19 - Allergies Allergies/Adverse Reactions: Allergies Allergy/AdvReac Type Severity Reaction Status Date / Time Penicillins Allergy Unknown Verified 12/06/19 09:25 - Social History Does the pt smoke?: No Smoking Status: Never smoker Does the pt drink ETOH?: No Does the pt have substance abuse?: No - Immunizations Immunizations are current?: Yes - POLST Patient has POLST: Yes POLST Status: DNR PD ED PE NORMAL - Vitals Vital signs reviewed: Yes (Tachycardic tachypneic and hypertensive.) - General General: Other (Thin 64-year-old female crying in pain clutching her abdomen.) - HEENT HEENT: Atraumatic, PERRL, EOMI - Neck Neck: Supple, no meningeal sign, No bony TTP - Cardiac Cardiac: No murmur, Other (Tachycardia to 110) - Respiratory Respiratory: No respiratory distress, Clear bilaterally - Abdomen Abdomen: Soft, Other (Mild generalized tenderness with some left lower quadrant tenderness more specifically but not reproducible.) - Back Back: No CVA TTP, No spinal TTP - Derm Derm: Normal color, Warm and dry, No rash - Extremities Extremities: No deformity, No edema, No calf tenderness / cord - Neuro Neuro: park interpretive specialist 2-12 intact, No motor deficit, No sensory deficit, Normal speech Eye Opening: Spontaneous Motor: Obeys Commands Verbal: Oriented GCS Score: 15 - Psych Psych: Other (mood is anxioius and the affect is blunted) Results - Vitals Vitals: Vital Signs - 24 hr 12/06/19 12/06/19 12/06/19 09:21 09:25 09:55 Temperature 35.6 C L 36.4 C L Heart Rate 120 H 106 H 83 Respiratory 26 H 18 18 Rate Blood Pressure 221/135 H 188/159 H 222/147 H O2 Saturation 100 95 12/06/19 12/06/19 12/06/19 10:25 10:42 10:53 Temperature Heart Rate 81 74 71 Respiratory 22 20 Rate Blood Pressure 246/144 H 236/130 H 208/130 H O2 Saturation 97 12/06/19 12/06/19 12/06/19 11:26 11:38 11:50 Temperature Heart Rate 73 68 72 Respiratory 18 18 Rate Blood Pressure 255/150 H 245/143 H 247/142 H O2 Saturation 96 98 12/06/19 12/06/19 12/06/19 12:46 12:51 12:57 Temperature Heart Rate 74 76 78 Respiratory 24 17 18 Rate Blood Pressure 248/146 H 235/145 H 227/144 H O2 Saturation 98 99 100 12/06/19 13:02 Temperature Heart Rate 87 Respiratory 20 Rate Blood Pressure 241/157 H O2 Saturation 100 Oxygen O2 Source Room air - Labs Labs: Laboratory Tests 12/06/19 12/06/19 12/06/19 09:37 09:37 10:15 WBC 21.3 H RBC 5.51 H Hgb 16.0 Hct 48.4 H MCV 87.8 MCH 29.0 MCHC 33.1 RDW 13.2 Plt Count 301 MPV 11.2 H Neut # (Auto) Not Reportable Lymph # (Auto) Not Reportable Sullivan # (Auto) Not Reportable Eos # (Auto) Not Reportable Baso # (Auto) Not Reportable Absolute Nucleated RBC Not Reportable Total Counted 100 Band Neuts % (Manual) 2 Abnorm Lymph % (Manual) 0 Nucleated RBC % Not Reportable Neutrophils # (Manual) 15.3 H Lymphocytes # (Manual) 4.7 H Monocytes # (Manual) 0.4 Eosinophils # (Manual) 0.9 H Basophils # (Manual) 0.0 Differential Comment MANUAL DIFFERENTIAL WBC Morphology NORMAL APPEARANCE Platelet Estimate NORMAL (130-450,000) Platelet Morphology NORMAL APPEARANCE RBC Morph Micro Appear NORMAL APPEARANCE Sodium 136 Potassium 3.6 Chloride 97 L Carbon Dioxide 19 L Anion Gap 20.0 H BUN 16 Creatinine 0.8 Estimated GFR (MDRD) 72 L Glucose 248 H Calcium 10.0 Total Bilirubin 0.7 AST 42 ALT 26 Alkaline Phosphatase 81 Total Protein 9.0 H Albumin 5.6 H Globulin 3.4 Albumin/Globulin Ratio 1.6 Lipase 29 Urine Color YELLOW Urine Clarity V Urine pH 7.0 Ur Specific [place] 1.020 Urine Protein 100 H Urine Glucose (UA) >=1000 H Urine Ketones TRACE Urine Occult Blood SMALL H Urine Nitrite NEGATIVE Urine Bilirubin NEGATIVE Urine Urobilinogen 0.2 (NORMAL) Ur Leukocyte Esterase NEGATIVE Urine RBC 0-5 Urine WBC 0-3 Ur Squamous Epith Cells RARE Squamous Urine Bacteria None Seen Urine Casts 0-2 Hyaline Casts Ur Microscopic Review INDICATED Urine Culture Comments NOT INDICATED - Rads (name of study) CT ab/pel w Radiology: Prelim report reviewed (Impression: No acute intra-abdominal abnormality demonstrated status post colon surgery.), EMP read indepedently, See rad report Procedures - IVC sono (time) 0959 Bedside IVC sono: IVC measures (cm) (1.21), IVC collapsed c insp (cm) (complete), Dehydration (est 1 liter deficit) PD MEDICAL DECISION MAKING - ED course Complexity details: reviewed old records, reviewed results, re-evaluated patient, considered differential, d/w patient, d/w family, d/w it support consultant (Dr. Wright surgery production sound mixer recommends hydration, pain control and further work up as an outpatient as planned. ) ED course: 64-year-old female with a prior history of ruptured diverticula and status post colostomy takedown has developed pain in the left lower quadrant that is severe and she feels like she is having a difficult time getting a stool out if she is not using a laxative.Today she is presents to the emergency department with severe left lower quadrant abdominal pain despite having a bowel movement this morning. A CT scan does not demonstrate any specific abnormality. The patient continues to have some pain in the left lower quadrant to palpation.She gives a history of Increasing symptomatology over the past 2 months with difficulty in getting stool to move without a laxative. She presented to the emergency department in severe pain and had improvement with use of intravenous Dilaudid and Zofran.Her blood pressure is found to be markedly elevated in the malignant range. She was unable to take her medications this morning. She was given multiple doses of intravenous metoprolol. She was subsequently administered both of her morning medications losartan and metoprolol. One hour after she has taken her morning medications her blood pressure comes down dramatically and she feels markedly improved. I am concerned that maybe this pain she is having her abdomen is a hypertensive urgency symptom. She certainly had vomiting associated with this as well. I have encouraged the patient to control her pain to take her blood pressure medications and we will g chidi her Compazine for nausea as this is been more successful for her in the past than the Zofran. She is not able to get the Phenergan suppositories as it is no longer covered on her insurance. Departure - Departure Disposition: 01 Home, Self Care Clinical Impression: Hypertensive urgency, malignant Abdominal pain Qualifiers: Abdominal location: left lower quadrant Qualified Code(s): R10.32 - Left lower quadrant pain Condition: Stable Instructions: Abdominal Pain, ED Hypertension Conf Out Of Control Follow-Up: Sydine Doe PA-C [Primary Care Provider] - Prescriptions: Oxycodone HCl/Acetaminophen [Percocet 5-325 mg Tablet] 1 - 2 each PO Q6H PRN #14 tablet PRN Reason: pain Prochlorperazine [Compazine] 10 mg PO Q6H #15 tablet Comments: Today I am concerned that your markedly elevated blood pressure may be at the center of some of your symptoms both of of abdominal pain and vomiting. Take your medications regularly and if you develop nausea take the Compazine to be certain you are able to take your medications. Follow-up with your GI specialist as previously planned and if your pain is out of control your vomiting is out of control come back and see us we are always here.
[2019-12-06] MEDS ORDERED: IOVERSOL 320 100 ML VIAL IVP ONE ×2 (10:04→11:17)
[2019-12-06 10:07] LABS: ABNORMAL LYMPHS % (MANUAL) 0 %
[2019-12-06] MEDS ORDERED: METOPROLOL 5 MG/5 ML VIAL IVP STA ×3 (10:22→12:22)
[2019-12-06] MEDS ORDERED: MAGNESIUM SULFATE 2 GRAM 2 GM/50 ML BAG IV ONE (10:31)
[2019-12-06 10:32] LABS: BILIRUBIN,URINE NEGATIVE (NEGATIVE); GLUCOSE, URINE (UA) >=1000 mg/dL (NEGATIVE); KETONES,URINE (UA) TRACE mg/dL (NEGATIVE); LEUKOCYTE ESTERASE, URINE NEGATIVE (NEGATIVE); NITRITE,URINE NEGATIVE (NEGATIVE); OCCULT BLOOD,URINE SMALL (NEGATIVE); PROTEIN,URINE 100 mg/dL (NEGATIVE); UROBILINOGEN,URINE 0.2 (NORMAL) E.U./dL (NORMAL)
[2019-12-06 10:35] LABS: CLARITY,URINE V (CLEAR)
[2019-12-06 10:44] LABS: BAND NEUTROPHILS % (MANUAL) 2 %; EOSINOPHILS # (MANUAL) 0.9 10^3/uL (0-0.7); LYMPHOCYTES # (MANUAL) 4.7 10^3/uL (1.5-3.5); LYMPHOCYTES % (MANUAL) 22 %; MONOCYTES # (MANUAL) 0.4 10^3/uL (0.0-1.0)
[2019-12-06 10:47] LABS: DIFFERENTIAL COMMENT MANUAL DIFFERENTIAL; PLATELET ESTIMATE, MANUAL NORMAL (130-450,000) (NORMAL); PLATELET MORPHOLOGY NORMAL APPEARANCE (NORMAL); RBC MORPHOLOGY (MULTIPLE) NORMAL APPEARANCE (NORMAL)
[2019-12-06 10:51] LABS: ALBUMIN 5.6 g/dL (3.2-5.5); ALBUMIN/GLOBULIN RATIO 1.6 (1.0-2.2); BILIRUBIN,TOTAL 0.7 mg/dL (0.2-1.0); CREATININE 0.8 mg/dL (0.4-1.0)
[2019-12-06 11:00] LABS: BACTERIA,URINE None Seen /HPF (None Seen); CASTS, URINE 0-2 Hyaline Casts /LPF; RBC,URINE 0-5 /HPF (0-5); SQUAMOUS EPITHELIAL CELL,UR RARE Squamous (<= Few)
--- NOTE | 2019-12-06 11:36 | CT Report ---
Reason: abd pain vomiting Procedure Date: 12/06/2019 Accession Number: [id number] / [id number] Procedure: CT - Abdomen/Pelvis W CPT Code: Final Report FULL RESULT: EXAM: CT ABDOMEN AND PELVIS EXAM DATE: 12/06/2019 11:16 AM. CLINICAL HISTORY: Abdominal pain. Vomiting. COMPARISONS: ABDOMEN/PELVIS W/ 06/25/2019 1:02 PM. TECHNIQUE: Routine helical CT imaging was performed through the abdomen and pelvis. IV contrast: 80 mL Optiray 320. Enteric contrast: No. Reconstructions: Coronal and sagittal. In accordance with CT protocol optimization, one or more of the following dose reduction techniques were utilized for this exam: automated exposure control, adjustment of mA and/or KV based on patient size, or use of iterative reconstructive technique. FINDINGS: Lung Bases: Unremarkable. Liver: Normal. No masses. Gallbladder/Bile Ducts: Unremarkable. Spleen: Normal. Pancreas: Normal. Adrenal Glands: Normal. Kidneys: The left kidney demonstrates a tiny subcentimeter low-density focus, technically too small to further characterize and indeterminant but probable tiny cyst. No nephrolithiasis or hydronephrosis. Peritoneal Cavity/Bowel: Postoperative changes related to distal and right colectomy is seen. A few scattered diverticula are seen distally without evidence of diverticulitis. The bowel loops are otherwise intact. Previous colitis of the left hemicolon appears resolved. There is no obstruction or ileus. There is no free fluid or free air. Pelvic Organs: Normal. The bladder and visualized pelvic organs are within normal limits. Vasculature: No aneurysms or other significant abnormality. Bones: Mild diffuse degenerative and mild scoliotic changes are seen in the spine. No acute osseous abnormality is demonstrated. Other: None. IMPRESSION: No acute intra-abdominal abnormality demonstrated status post colon surgery. [facility]
[2019-12-06] MEDS ORDERED: SODIUM CHLORIDE 0.9% 1,000 ML IV ONE (12:13)
[2019-12-06] MEDS ORDERED: LOSARTAN 50 MG TABLET PO STA (12:56)
[2019-12-06] MEDS ORDERED: METOPROLOL TARTRATE 50 MG TABLET PO STA (12:57)
[2019-12-06 14:09] VITALS: BP 196/138
[2019-12-06] MEDS ORDERED: PROCHLORPERAZINE 5 MG TABLET PO STA (14:33)
== END 2019-12-06 14:47 | disposition home or self-care (01) ==
LOC: ED 09:17
DX: I16.0 Hypertensive urgency (principal); I10 Essential (primary) hypertension; R10.32 Left lower quadrant pain; R11.2 Nausea with vomiting, unspecified; E86.0 Dehydration; Z66 Do not resuscitate
CPT/HCPCS: 36415; 74177; 80053; 81001; 83690; 85025; 96365; 96375; 96376; 99284; 99285; A9270; J1170; Q9967; 81003; 87086

== ENCOUNTER 2019-12-10 09:06 | Emergency (ER) | payer MEDICARE, OTHER ==
[2019-12-10] MEDS ORDERED: LORazepam 2 MG/ML VIAL IVP STA (09:40)
[2019-12-10] MEDS ORDERED: ONDANSETRON 4 MG/2 ML VIAL IVP STA ×2 (09:40→14:59)
[2019-12-10] MEDS ORDERED: SODIUM CHLORIDE 0.9% 1,000 ML IV ONE (09:40)
--- NOTE | 2019-12-10 09:43 | ED Physician Documentation ---
History of Present Illness - Stated complaint Stated Complaint: N/V AND ABD PX - Chief complaint Chief Complaint: Abd Pain - History obtained from History obtained from: Patient - Additonal information Additional information: Patient comes emergency department complaining of upper abdominal pain and vomiting that restarted last night. Patient states she was seen here several days ago for the same and had a full work-up including CT scan, which was negative. The patient states that sheFelt better after being treated in the emergency department though she had slight nausea for a few days. Patient states that she had a large bowel movement this morning, which was normal. She states that she has a history of colostomy and reanastomosis, and though she has never had a bowel obstruction, states she has had some issues with constipation previously. She also has a history of cyclical vomiting syndrome, though she does note that since her colostomy reversal 18 months ago, the cyclical vomiting seems to have calmed down a bit. Patient denies any fevers or chills. No myalgias. No dysuria. No cough, shortness of breath, or chest pain. No other complaints at this time.Patient states that the pain in her abdomen feels mostly like "soreness" from the vomiting. She characterizes it as an "achy feeling" and rates it as a 5 out of 10. Nothing makes better or worse. Review of Systems Ten Systems: 10 systems reviewed and negative Constitutional: reports: Reviewed and negative Eyes: reports: Reviewed and negative Ears: reports: Reviewed and negative Nose: reports: Reviewed and negative Throat: reports: Reviewed and negative Cardiac: reports: Reviewed and negative Respiratory: reports: Reviewed and negative GI: reports: Abdominal Pain, Nausea, Vomiting : reports: Reviewed and negative Skin: reports: Reviewed and negative Musculoskeletal: reports: Reviewed and negative Neurologic: reports: Reviewed and negative Psychiatric: reports: Reviewed and negative Endocrine: reports: Reviewed and negative Immunocompromised: reports: Reviewed and negative PD PAST MEDICAL HISTORY - Past Medical History Cardiovascular: Hypertension Respiratory: None Neuro: None Endocrine/Autoimmune: None GI: Other TOE SEWER: None : None HEENT: None Psych: None Musculoskeletal: None Derm: None - Past Surgical History Past Surgical History: No General: Bowel surgery - Present Medications Home Medications: Ambulatory Orders Medication Instructions Recorded Confirmed Losartan [Cozaar] 100 mg PO DAILY tablet 04/04/18 08/08/19 Metoprolol Tartrate [Lopressor] 100 mg PO DAILY 08/07/19 08/08/19 Oxycodone HCl/Acetaminophen 1 - 2 each PO Q6H PRN #14 tablet 12/06/19 [Percocet 5-325 mg Tablet] Prochlorperazine [Compazine] 10 mg PO Q6H #15 tablet 12/06/19 Promethazine Supp [Phenergan Supp] 25 mg UT Q6HR 3 Days #10 supp 12/10/19 - Allergies Allergies/Adverse Reactions: Allergies Allergy/AdvReac Type Severity Reaction Status Date / Time Penicillins Allergy Unknown Verified 12/10/19 09:18 - Social History Does the pt smoke?: No Smoking Status: Never smoker Does the pt drink ETOH?: No Does the pt have substance abuse?: No - Immunizations Immunizations are current?: Yes - POLST Patient has POLST: Yes POLST Status: DNR PD ED PE NORMAL - Vitals Vital signs reviewed: Yes - General General: Alert and oriented X 3, No acute distress - HEENT HEENT: PERRL - Neck Neck: Supple, no meningeal sign - Cardiac Cardiac: RRR, No murmur - Respiratory Respiratory: No respiratory distress, Clear bilaterally - Abdomen Abdomen: Soft, Non distended, Other (Mild upper abdominal tenderness without rebound or guarding.) - Back Back: No CVA TTP - Derm Derm: Normal color, Warm and dry, No rash - Extremities Extremities: No deformity, Normal ROM s pain, No edema - Neuro Neuro: Alert and oriented X 3, electrical machinist 2-12 intact, No motor deficit, No sensory deficit - Psych Psych: Normal mood, Normal affect Results - Vitals Vitals: Vital Signs - 24 hr 12/10/19 12/10/19 12/10/19 09:12 10:00 10:30 Temperature 36.6 C Heart Rate 113 H 100 96 Respiratory 16 16 20 Rate Blood Pressure 250/148 H 255/147 H 229/153 H O2 Saturation 99 100 97 12/10/19 12/10/19 12/10/19 11:00 12:25 12:45 Temperature Heart Rate 95 114 H 121 H Respiratory 18 18 16 Rate Blood Pressure 245/138 H 222/143 H 232/149 H O2 Saturation 97 98 99 12/10/19 12/10/19 14:15 15:00 Temperature Heart Rate 88 88 Respiratory 16 16 Rate Blood Pressure 134/114 H 129/70 O2 Saturation 97 97 Oxygen O2 Source Room air - Labs Labs: Laboratory Tests 12/10/19 12/10/19 09:31 09:31 WBC 14.6 H RBC 5.57 H Hgb 16.8 H Hct 49.7 H MCV 89.2 MCH 30.2 MCHC 33.8 RDW 13.1 Plt Count 287 MPV 11.0 H Neut # (Auto) 9.3 H Lymph # (Auto) 4.7 H Terrell # (Auto) 0.3 Eos # (Auto) 0.0 Baso # (Auto) 0.1 Absolute Nucleated RBC 0.00 Nucleated RBC % 0.0 Sodium 135 Potassium 4.1 Chloride 92 L Carbon Dioxide 27 Anion Gap 16.0 H BUN 22 H Creatinine 0.8 Estimated GFR (MDRD) 72 L Glucose 204 H Calcium 10.2 Total Bilirubin 0.9 AST 46 H ALT 35 Alkaline Phosphatase 77 Total Protein 9.1 H Albumin 5.7 H Globulin 3.4 Albumin/Globulin Ratio 1.7 Lipase 25 PD MEDICAL DECISION MAKING - ED course Complexity details: reviewed old records, reviewed results, re-evaluated patient, considered differential, d/w patient ED course: Patient was treated symptomatically with IV fluids, Zofran, and a small dose of Ativan in the emergency department she was worked up with labs initially.Patient's labs were unremarkable. She did require further symptomatic treatment with Phenergan, Benadryl, and Dilaudid. She was found to be feeling better eventually. I spoke with the patient and she stated that Phenergan suppositories had worked the best for her; however, they were very expensive at [facility]. I did look up prices on good Rx and found that the patient could get 10 tablets of Phenergan suppositories for $10 at both [facility] and [facility]. I have passed this information along to the patient. I have also encouraged her to speak with her primary care physician about discount prescription programs.Patient is stable for discharge home and is no longer vomiting. Departure - Departure Disposition: 01 Home, Self Care Clinical Impression: Cyclic vomiting syndrome Condition: Fair Instructions: ED Nausea Vomiting Prescriptions: Promethazine Supp [Phenergan Supp] 25 mg UT Q6HR 3 Days #10 supp Comments: The cost for 10 tablets of Phenergan suppositories at [facility] is $31. While this is not as cheap as we were hoping it is a better hilario than where you have attempted to get the medication before. Since this is a medication that has worked well for you at home, it may be worth getting a smaller prescription that is more affordable so that you can have some relief at home. Please follow-up with your primary care physician to see if you can get on any sort of program to help defray the cost of your medications. Please also reschedule your [facility] appointment to discuss further management of your symptoms. Discharge Date/Time: 12/10/19 15:08
[2019-12-10 09:46] LABS: BASOPHILS # (AUTO) 0.1 10^3/uL (0.0-0.1); BASOPHILS % (AUTO) 0.6 %; EOSINOPHILS % (AUTO) 0.1 %; HGB - HEMOGLOBIN 16.8 g/dL (12.0-16.0); LYMPHOCYTES # (AUTO) 4.7 10^3/uL (1.5-3.5); LYMPHOCYTES % (AUTO) 32.6 %; MEAN CORPUSCULAR HEMOGLOBIN 30.2 pg (27.0-31.0); MEAN CORPUSCULAR HGB CONC 33.8 g/dL (32.0-36.0); MEAN CORPUSCULAR VOLUME 89.2 fL (81.0-99.0); MONOCYTES # (AUTO) 0.3 10^3/uL (0.0-1.0); MONOCYTES % (AUTO) 2.1 %; NEUTROPHILS # (AUTO) 9.3 10^3/uL (1.5-6.6); NEUTROPHILS % (AUTO) 64.1 %; PLT - PLATELET COUNT 287 10^3/uL (130-450); RED BLOOD COUNT 5.57 10^6/uL (4.20-5.40); RED CELL DISTRIBUTION WIDTH 13.1 % (12.0-15.0); WHITE BLOOD COUNT 14.6 x10^3/uL (4.8-10.8)
[2019-12-10 09:57] LABS: ALBUMIN 5.7 g/dL (3.2-5.5); ALBUMIN/GLOBULIN RATIO 1.7 (1.0-2.2); BILIRUBIN,TOTAL 0.9 mg/dL (0.2-1.0); CALCIUM 10.2 mg/dL (8.5-10.3); CREATININE 0.8 mg/dL (0.4-1.0); TOTAL PROTEIN 9.1 g/dL (6.7-8.2)
[2019-12-10] MEDS ORDERED: diphenhydrAMINE INJ 50 MG/ML VIAL IVP STA (11:33)
[2019-12-10] MEDS ORDERED: PROMETHAZINE INJ 25 MG in SODIUM CHLORIDE 0.9% 50 ML IV STA (11:33)
[2019-12-10] MEDS ORDERED: HYDROmorphone 1 MG/ML SYRINGE IVP STA (12:58)
[2019-12-10 17:05] VITALS: BP 129/70
== END 2019-12-10 15:08 | disposition home or self-care (01) ==
LOC: ED 09:06
DX: R11.15 Cyclical vomiting syndrome unrelated to migraine (principal); I10 Essential (primary) hypertension; Z66 Do not resuscitate
CPT/HCPCS: 36415; 80053; 83690; 85025; 96361; 96365; 96375; 99284; 99285; J1170; J1200; J2060; J7040

== ENCOUNTER 2020-08-28 18:45 | Outpatient (CLI) | payer MEDICARE, OTHER | END 2020-08-28 18:46 | disposition critical access hospital (66) | LOC: EMS 18:45 | PROVIDERS: ATTEND Surgery | DX: R10.32 Left lower quadrant pain (principal) | CPT/HCPCS: A0425; A0429 ==

== ENCOUNTER 2020-08-28 19:10 | Inpatient (IN) | payer MEDICARE, OTHER ==
[2020-08-28 19:38] LABS: BASOPHILS # (AUTO) 0.1 10^3/uL (0.0-0.1); BASOPHILS % (AUTO) 0.3 %; EOSINOPHILS # (AUTO) 0.1 10^3/uL (0.0-0.7); EOSINOPHILS % (AUTO) 0.3 %; HGB - HEMOGLOBIN 21.7 g/dL (12.0-16.0); LYMPHOCYTES # (AUTO) 7.1 10^3/uL (1.5-3.5); LYMPHOCYTES % (AUTO) 39.9 %; MEAN CORPUSCULAR HEMOGLOBIN 30.4 pg (27.0-31.0); MEAN CORPUSCULAR HGB CONC 34.7 g/dL (32.0-36.0); MEAN CORPUSCULAR VOLUME 87.7 fL (81.0-99.0); MEAN PLATELET VOLUME 11.2 fL (7.9-10.8); MONOCYTES # (AUTO) 0.9 10^3/uL (0.0-1.0); MONOCYTES % (AUTO) 4.8 %; NEUTROPHILS # (AUTO) 9.7 10^3/uL (1.5-6.6); NEUTROPHILS % (AUTO) 54.1 %; PLT - PLATELET COUNT 279 10^3/uL (130-450); RED BLOOD COUNT 7.13 10^6/uL (4.20-5.40); RED CELL DISTRIBUTION WIDTH 13.9 % (12.0-15.0); WHITE BLOOD COUNT 17.9 x10^3/uL (4.8-10.8)
[2020-08-28 20:04] LABS: DIFFERENTIAL COMMENT MANUAL=AUTO DIFF; PLATELET ESTIMATE, MANUAL NORMAL (130-450,000) (NORMAL); PLATELET MORPHOLOGY NORMAL APPEARANCE (NORMAL)
[2020-08-28 20:13] LABS: ALBUMIN 4.9 g/dL (3.2-5.5); ALBUMIN/GLOBULIN RATIO 1.5 (1.0-2.2); CREATININE 1.3 mg/dL (0.4-1.0); TOTAL PROTEIN 8.1 g/dL (6.7-8.2)
[2020-08-28] MEDS ORDERED: SODIUM CHLORIDE 0.9% 1,000 ML IV STA ×3 (20:21→23:07)
[2020-08-28] MEDS ORDERED: HYDROmorphone 1 MG/ML CARPUJECT IVP STA ×2 (20:21→23:06)
--- NOTE | 2020-08-28 20:22 | ED Physician Documentation ---
PD HPI ABD PAIN - Stated complaint Stated Complaint: ABD PX - Chief complaint Chief Complaint: Abd Pain - History obtained from History obtained from: Patient - Additional information Additional information: 65-year-old woman who is generally healthy except it sounds like she had some sort of colonic perforation a couple of years ago and had a colostomy and subsequently was reversed. She is having having ongoing problems with abdominal pain, but the pain is been much worse over the last 3 nights with severe cramping in the left lower quadrant. She is not nauseous. She does have chills and sweats. At the time of my evaluation I have already looked at her blood work. No history of pulmonary disease or polycythemia. Review of Systems Ten Systems: 10 systems reviewed and negative Constitutional: reports: Chills, Sweats Cardiac: denies: Chest pain / pressure, Palpitations Respiratory: denies: Dyspnea, Cough GI: reports: Abdominal Pain, Constipation. 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: None : None HEENT: None Psych: None Musculoskeletal: None Derm: None - Past Surgical History Past Surgical History: No General: Bowel surgery - Present Medications Home Medications: Ambulatory Orders Medication Instructions Recorded Confirmed Acetaminophen [Tylenol] 500 mg PO Q6H PRN 08/29/20 Metoprolol Succinate [Toprol Xl] 100 mg PO BID 08/29/20 Multivitamin [Theragran] 1 each PO DAILY 08/29/20 Promethazine Supp [Phenergan Supp] 25 mg GA Q6H PRN 08/29/20 - Allergies Allergies/Adverse Reactions: Allergies Allergy/AdvReac Type Severity Reaction Status Date / Time Penicillins Allergy Unknown Verified 08/28/20 19:18 - Social History Does the pt smoke?: No Smoking Status: Never smoker Does the pt drink ETOH?: No Does the pt have substance abuse?: No - Immunizations Immunizations are current?: Yes - POLST Patient has POLST: Yes POLST Status: DNR PD ED PE NORMAL - Vitals Vital signs reviewed: Yes - General General: Alert and oriented X 3, No acute distress - HEENT HEENT: PERRL, EOMI - Neck Neck: Supple, no meningeal sign, No bony TTP - Cardiac Cardiac: RRR, No murmur - Respiratory Respiratory: No respiratory distress, Clear bilaterally - Abdomen Abdomen: Other (Present bowel sounds with tenderness in the left lower quadrant, no surgical signs.) - Back Back: No CVA TTP, No spinal TTP - Derm Derm: Normal color, Warm and dry - Extremities Extremities: No edema, No calf tenderness / cord - Neuro Neuro: Alert and oriented X 3, Normal speech Results - Vitals Vitals: Vital Signs - 24 hr 08/28/20 08/28/20 08/28/20 19:10 19:39 21:15 Temperature 36.5 C Heart Rate 99 102 H 112 H Respiratory 17 20 Rate Blood Pressure 128/108 H 113/93 H 154/89 H O2 Saturation 99 98 99 08/28/20 08/29/20 22:07 00:00 Temperature 36.7 C 36.8 C Heart Rate 74 82 Respiratory 19 12 Rate Blood Pressure 145/94 H 156/122 H O2 Saturation 99 100 Oxygen O2 Source Room air - Labs Labs: Laboratory Tests 08/28/20 08/28/20 08/28/20 19:30 19:47 22:40 WBC 17.9 H RBC 7.13 H Hgb 21.7 H Hct 62.5 H MCV 87.7 MCH 30.4 MCHC 34.7 RDW 13.9 Plt Count 279 MPV 11.2 H Neut # (Auto) 9.7 H Lymph # (Auto) 7.1 H [place] # (Auto) 0.9 Eos # (Auto) 0.1 Baso # (Auto) 0.1 Absolute Nucleated RBC 0.00 Band Neuts % (Manual) Not Reportable Abnorm Lymph % (Manual) Not Reportable Nucleated RBC % 0.0 Neutrophils # (Manual) Not Reportable Lymphocytes # (Manual) Not Reportable Monocytes # (Manual) Not Reportable Eosinophils # (Manual) Not Reportable Basophils # (Manual) Not Reportable Differential Comment MANUAL=AUTO DIFF Manual Slide Review Indicated WBC Morphology 1+ SMUDGE CELLS Platelet Estimate NORMAL (130-450,000) Platelet Morphology NORMAL APPEARANCE RBC Morph Micro Appear 2+ OVALOCYTES Sodium 130 L Potassium 3.1 L Chloride 90 L Carbon Dioxide 18 L Anion Gap 22.0 H BUN 54 H Creatinine 1.3 H Estimated GFR (MDRD) 41 L Glucose 226 H Calcium 10.0 Total Bilirubin 2.0 H AST 31 ALT 20 Alkaline Phosphatase 88 Total Protein 8.1 Albumin 4.9 Globulin 3.2 Albumin/Globulin Ratio 1.5 Lipase 19 L Urine Color YELLOW Urine Clarity CLEAR Urine pH 5.5 Ur Specific [place] >=1.030 H Urine Protein 100 H Urine Glucose (UA) 100 H Urine Ketones 15 H Urine Occult Blood SMALL H Urine Nitrite NEGATIVE Urine Bilirubin NEGATIVE Urine Urobilinogen 0.2 (NORMAL) Ur Leukocyte Esterase NEGATIVE Urine RBC 0-5 Urine WBC 0-3 Ur Squamous Epith Cells MOD Squamous H Urine Bacteria Few Urine Casts 11-25 Hyaline Casts Ur Microscopic Review INDICATED Urine Culture Comments NOT INDICATED PD MEDICAL DECISION MAKING - ED course ED course: 65yo woman with hx colostomy and takedown presents with LLQ pain, chills and sweats. She has significant elevation in H/H, seems too severe to just be hemoconcentration. She also has an anion gap acidosis and ALVIN, baseline creatinine about 0.8. She was hydrated and pain was gone p dilaudid, but developed nausea from this. Therapeutic 500ml phlebtomy was done as given here severe elevation in H/H she is at imminent risk of thrombotic/sludging complications. S/O to Dr Andersen at shift change to F/U on CT, but even if CT negative probably needs at least obs to hydrate and correct ALVIN/acidosis. Departure - Departure Disposition: ED Place in Observation Clinical Impression: ALVIN (acute kidney injury), Increased anion gap metabolic acidosis, Elevated hemoglobin, Abdominal pain, Dehydration, Ileus Discharge Date/Time: 08/29/20 02:53
[2020-08-28] MEDS ORDERED: ONDANSETRON 4 MG/2 ML VIAL IVP STA (20:36)
[2020-08-28] MEDS ORDERED: POTASSIUM CHLOR 10 MEQ/100 ML 10 MEQ/100 ML BAG IV ONE (21:01)
[2020-08-28] MEDS ORDERED: METOCLOPRAMIDE 10 MG/2 ML VIAL IVP STA (21:31)
[2020-08-28 22:45] LABS: GLUCOSE, URINE (UA) 100 mg/dL (NEGATIVE); KETONES,URINE (UA) 15 mg/dL (NEGATIVE); LEUKOCYTE ESTERASE, URINE NEGATIVE (NEGATIVE); NITRITE,URINE NEGATIVE (NEGATIVE); OCCULT BLOOD,URINE SMALL (NEGATIVE); PH,URINE 5.5 PH (5.0-7.5); PROTEIN,URINE 100 mg/dL (NEGATIVE); UROBILINOGEN,URINE 0.2 (NORMAL) E.U./dL (NORMAL)
[2020-08-28 22:49] LABS: BILIRUBIN,URINE NEGATIVE (NEGATIVE); CLARITY,URINE CLEAR (CLEAR); ICTOTEST,URINE NEGATIVE
[2020-08-28 22:52] LABS: BACTERIA,URINE Few /HPF (None Seen); CASTS, URINE 11-25 Hyaline Casts /LPF; RBC,URINE 0-5 /HPF (0-5); SQUAMOUS EPITHELIAL CELL,UR MOD Squamous (<= Few)
--- NOTE | 2020-08-28 22:54 | ED Physician Documentation ---
PD HPI ABD PAIN - Stated complaint Stated Complaint: ABD PX - Chief complaint Chief Complaint: Abd Pain - History obtained from History obtained from: Patient - History of Present Illness Timing - onset: How many days ago (3) Timing - duration: Days (3) Timing - details: Gradual onset, Still present Quality: Cramping, Sharp, Fullness/distended, Pain Location: All over / everywhere, LLQ Improved by: Laying still Worsened by: Moving, Breathing, Position, Palpation Associated symptoms: Nausea, Vomiting, Constipation Similar symptoms before: Diagnosis (bowel perforation with colostomy and takedown. 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 : None HEENT: None Psych: None Musculoskeletal: None Derm: None - Past Surgical History Past Surgical History: No General: Bowel surgery - Present Medications Home Medications: Ambulatory Orders Medication Instructions Recorded Confirmed Metoprolol Tartrate [Lopressor] 100 mg PO DAILY 08/07/19 08/08/19 Oxycodone HCl/Acetaminophen 1 - 2 each PO Q6H PRN #14 tablet 12/06/19 [Percocet 5-325 mg Tablet] - Allergies Allergies/Adverse Reactions: Allergies Allergy/AdvReac Type Severity Reaction Status Date / Time Penicillins Allergy Unknown Verified 08/28/20 19:18 - Social History Does the pt smoke?: No Smoking Status: Never smoker Does the pt drink ETOH?: No Does the pt have substance abuse?: No - Immunizations Immunizations are current?: Yes - POLST Patient has POLST: Yes POLST Status: DNR PD ED PE NORMAL - Vitals Vital signs reviewed: Yes (hypertensive ) - General General: Alert and oriented X 3, Well developed/nourished, Other (thin appearing elderly female appears to be in pain ) - HEENT HEENT: Atraumatic, PERRL, EOMI - Respiratory Respiratory: No respiratory distress - Derm Derm: Normal color, Warm and dry, No rash - Extremities Extremities: No deformity, No edema - Neuro Neuro: Alert and oriented X 3, privacy officer 2-12 intact, No motor deficit, No sensory deficit, Normal speech Eye Opening: Spontaneous Motor: Obeys Commands Verbal: Oriented GCS Score: 15 - Psych Psych: Normal mood, Normal affect Results - Vitals Vitals: Vital Signs - 24 hr 08/28/20 08/28/20 08/28/20 19:10 19:39 21:15 Temperature 36.5 C Heart Rate 99 102 H 112 H Respiratory 17 20 Rate Blood Pressure 128/108 H 113/93 H 154/89 H O2 Saturation 99 98 99 08/28/20 08/29/20 22:07 00:00 Temperature 36.7 C 36.8 C Heart Rate 74 82 Respiratory 19 12 Rate Blood Pressure 145/94 H 156/122 H O2 Saturation 99 100 Oxygen O2 Source Room air - Labs Labs: Laboratory Tests 08/28/20 08/28/20 08/28/20 19:30 19:47 22:40 WBC 17.9 H RBC 7.13 H Hgb 21.7 H Hct 62.5 H MCV 87.7 MCH 30.4 MCHC 34.7 RDW 13.9 Plt Count 279 MPV 11.2 H Neut # (Auto) 9.7 H Lymph # (Auto) 7.1 H [place] # (Auto) 0.9 Eos # (Auto) 0.1 Baso # (Auto) 0.1 Absolute Nucleated RBC 0.00 Band Neuts % (Manual) Not Reportable Abnorm Lymph % (Manual) Not Reportable Nucleated RBC % 0.0 Neutrophils # (Manual) Not Reportable Lymphocytes # (Manual) Not Reportable Monocytes # (Manual) Not Reportable Eosinophils # (Manual) Not Reportable Basophils # (Manual) Not Reportable Differential Comment MANUAL=AUTO DIFF Manual Slide Review Indicated WBC Morphology 1+ SMUDGE CELLS Platelet Estimate NORMAL (130-450,000) Platelet Morphology NORMAL APPEARANCE RBC Morph Micro Appear 2+ OVALOCYTES Sodium 130 L Potassium 3.1 L Chloride 90 L Carbon Dioxide 18 L Anion Gap 22.0 H BUN 54 H Creatinine 1.3 H Estimated GFR (MDRD) 41 L Glucose 226 H Calcium 10.0 Total Bilirubin 2.0 H AST 31 ALT 20 Alkaline Phosphatase 88 Total Protein 8.1 Albumin 4.9 Globulin 3.2 Albumin/Globulin Ratio 1.5 Lipase 19 L Urine Color YELLOW Urine Clarity CLEAR Urine pH 5.5 Ur Specific [place] >=1.030 H Urine Protein 100 H Urine Glucose (UA) 100 H Urine Ketones 15 H Urine Occult Blood SMALL H Urine Nitrite NEGATIVE Urine Bilirubin NEGATIVE Urine Urobilinogen 0.2 (NORMAL) Ur Leukocyte Esterase NEGATIVE Urine RBC 0-5 Urine WBC 0-3 Ur Squamous Epith Cells MOD Squamous H Urine Bacteria Few Urine Casts 11-25 Hyaline Casts Ur Microscopic Review INDICATED Urine Culture Comments NOT INDICATED - Rads (name of study) CT abdomen pelvis with Radiology: Prelim report reviewed (Impression: 1. Nonspecific bowel gas. Cons ider ileus. 2. Hepatomegaly.), EMP read indepedently, See rad report Procedures - IVC sono (time) 2248 Bedside IVC sono: IVC measures (cm) (0.34), IVC collapsed c insp (cm) (complete), Profound dehydration (the smallest vessle I have ever scanned est 4 liter deficit after one liter is in.) PD MEDICAL DECISION MAKING - ED course Complexity details: reviewed old records, reviewed results, re-evaluated patient, considered differential, d/w patient ED course: patient turned over to me by Dr. Muniz at shift change with pending CT scan has been treated for polycythemia has history of bowel obstructions. 65-year-old female with a history of malignant hypertension and cyclical vomiting has had a ruptured diverticula and ischemic bowel in August 2017 requiring emergency surgery. She has eventually recovered from this and had reversal of her colostomy. She had this colostomy takedown done in January 2018. She has some episodes of bowel obstruction and partial bowel obstruction previously. Today she has had symptoms for 3 days of increased pain distention and vomiting. She was doing bowel rest and today felt that she was able to take some gatorade but she knew she was not going to be able to catch up on the de hydration and her cramping was intolerable so she came to the hospital. Her h&h were extremely high and 500ml of blood was let. She was found to be profoundly dehydrated and her CT showed an ileus with a significant gas burden and some low lying stool. We were able to provide an enema with some results and the patient notes that pain after defecation lasts about 30 minutes and this is a new sympto m for the patient over the last month. She is provided saline and feels improved. She will need to resolve the ileus, get hydrated and be evaluated for the post defection pain. Departure - Departure Disposition: ED Place in Observation Clinical Impression: ALVIN (acute kidney injury), Increased anion gap metabolic acidosis, Elevated hemoglobin, Dehydration, Ileus Abdominal pain Qualifiers: Abdominal location: left lower quadrant Qualified Code(s): R10.32 - Left lower quadrant pain
[2020-08-28] MEDS ORDERED: IOVERSOL 320 100 ML VIAL IVP ONE ×2 (23:01→23:39)
[2020-08-29] MEDS ORDERED: MINERAL OIL ENEMA 133 ML BOTTLE RC STA (00:28)
[2020-08-29] MEDS ORDERED: ONDANSETRON ODT 4 MG TABLET TL PRN (01:06)
[2020-08-29] MEDS ORDERED: ONDANSETRON 4 MG/2 ML VIAL IVP PRN (01:06)
[2020-08-29] MEDS ORDERED: SODIUM CHLORIDE FLUSH 0.9% 10 ML SYRINGE IVP PRN (01:06)
--- NOTE | 2020-08-29 01:25 | HISTORY & PHYSICAL EXAMINATION ---
Chief Complaint - Chief Complaint Chief Complaint: abd pain History of Present Illness - Admitted From Admitted From:: Home via ER - History Obtained From Records Reviewed: [facility] History obtained from: patient and Dr. Flavio Ramírez Exam Limitations: none - History of Present Illness HPI Comment/Other: She is a 65-year-old white female who has a previous history of diverticulitis with bowel resection in August 2017, colostomy, and then takedown of the colostomy with reanastomosis in January 2018. Prior to this she did have a few episodes of bowel obstruction and partial bowel obstruction. She also has a history of cyclical vomiting. She was admitted in August 2018 for partial small bowel obstruction with acute kidney injury due to hypovolemia. She was seen in the emergency room November 2019 with nausea vomiting and abdominal pain. She was seen twice that month. With the first episode, CT of the abdomen showed a severe dehydration with collapse of the IVC. Blood pressure was markedly elevated because she had not been taking her blood pressure medicines. She was given her blood pressure medicines, IV fluids, and felt well enough to go home. She received IV fluids, Zofran, and a small dose of Ativan. Her labs were unremarkable. She was treated with more Phenergan, Benadryl and Dilaudid. She did well enough to go home. She then returned a second time. Blood pressure was again elevated over 200 systolic. Elevated white cell count. She was treated symptomatically with IV fluids, Zofran, Ativan. Phenergan, Benadryl, Dilaudid. [place] much better and then sent home. She always has a history of severe constipation. That got better when she had her partial bowel resection. She in fact had loose stools. But over time, the constipation has slowly crept back. She is cut out foods from her diet such as lactose. Gone up on the fiber, down on the fiber, and nothing seems to make the constipation better. She now presents to the emergency room again. She has been having increasing abdominal pain for the last 3 nights. Severe cramping in the left lower quadrant. She had nausea and vomiting the first couple of days and was unable to keep down even a little bit of 7-Up. She was having chills and sweats. No bowel movements. Just a lot of crampy gas. Lots of flatus. She does not remember her last bowel movement. In the ER, She was afebrile, only mildy hypertensive this time at 145-156 systolic. Respirations normal and oxygenating normally. Her abdominal exam had positive bowel sounds with tenderness in the left lower quadrant. But no rebound or guarding, no peritoneal signs. Normal hemoglobin for her is 14 to 16 g. With her November 2017 visit she was 16.8. Toda y hemoglobin was 21.7. White cell count was 17.9 and she is intermittently chronically elevated off and on for years. Platelets are normal. BUN and creatinine were also elevated for the first time this year. She is usually anywhere from 11-20 on her BUN and she is 54 tonight. Baseline creatinine is 0.8 and she is 1.3. Bili is mildly elevated at 2 but has been intermittently elevated in the past. Liver enzymes are normal. She was seen by 2 ER physicians. The first ER physician thought that she may have new polycythemia and did phlebotomy of 500 cc. Also gave her a liter of fluid. He then ordered a CT scan of the abdomen and the CT shows stool in her rectal vault, mild gassy distention diffusely in the left bowel. But no acute findings of perforation, obstruction, etc. IVC was investigated via ultrasound at the bedside and she is profoundly dehydrated. When I asked what it was that dehydrated her, the emergency room physician feels that she just has gassy abdominal pain, and the patient has not been eating for 3 days. As such she is asking for observation status for hydration. She is already started to feel much better with the IV fluids given to her in the emergency room. History - Past Medical History Cardiovascular: reports: Hypertension, High cholesterol, Murmur (Echo February 09, 2018 with mild concentric left ventricular hypertrophy. Hyperdynamic function with ejection fraction greater than 75%. Right ventricle normal size and function. Severe increased left atrial volume index. Right atrial size normal. No valvular heart disease seen. 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 She was sent to [place] because of the abnormal EKG, slight bump in troponins and coronary angiogram was negative.)) Respiratory: reports: None Neuro: reports: None Endocrine/Autoimmune: reports: None GI: reports: Chronic constipation RADIOLOGY INTERVENTIONAL PHYSICIAN: reports: None, Other () : reports: None HEENT: reports: None Psych: reports: None Musculoskeletal: reports: None Derm: reports: None MRSA Hx?: No - Past Surgical History General: reports: Bowel surgery - Family & Social History Family History: Mother: Hypertension, Sister: Cancer (Leukemia) Family History Comment/Other: Mom had high blood pressure, DM and at age 1 02. Dad: of pulmonary fibrosis. Sister had leukemia, Survived. Lives near her. No children Living arrangement: At home Living Situation: Alone Social History Notes: The patient is originally from [place], [place] but lived in [place] during her early years. She went to college for a short time, got , got , never got again, she has no children. 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 She previously lived in [place], [place] and moved would be [place] after she retired. She currently lives in [place], [place]. She lives alone. She does not smoke but did previously smoke cigarettes quit 10 years ago. She denies any illicit drug use. She states that she occasionally drinks a glass of wine. - Substance History Use: Uses substance without health or social issues: NONE Abuse: Recurrent use of substance despite neg consequences: NONE Dependence: Experiences withdrawal or developed tolerances: NONE - POLST Patient has POLST: Yes POLST Status: DNR Meds/Allgy - Home Medications Home Medications: Ambulatory Orders Medication Instructions Recorded Confirmed Metoprolol Tartrate [Lopressor] 100 mg PO DAILY 08/07/19 08/08/19 Oxycodone HCl/Acetaminophen 1 - 2 each PO Q6H PRN #14 tablet 12/06/19 [Percocet 5-325 mg Tablet] - Allergies Allergies/Adverse Reactions: Allergies Allergy/AdvReac Type Severity Reaction Status Date / Time Penicillins Allergy Unknown Verified 08/28/20 19:18 Prior Level of Functionality: Independent with activities of daily living.Drives a car. Take care of her own house. Pays the bills. She lives with her little dog. Sister Beth lives nearby. Beth's , Dale, is power of carpet jack. He is a retired transit police officer and has a much more practical view of life than her sister does. Exam - Vital Signs Reviewed Vital Signs: Yes Vital Signs: Vital Signs x48h Temp Pulse Resp BP Pulse Ox 08/29/20 00:00 36.8 C 82 12 156/122 H 100 08/28/20 22:07 36.7 C 74 19 145/94 H 99 08/28/20 21:15 112 H 20 154/89 H 99 08/28/20 19:39 102 H 113/93 H 98 08/28/20 19:10 36.5 C 99 17 128/108 H 99 - Physical Exam General Appearance: positive: No acute distress, Alert, Other (Pale, fatigued appearing white female who looks older than stated age. Well groomed, very thin.) Eyes Bilateral: positive: PERRL, EOMI ENT: positive: Dry mucous membranes Neck: positive: No JVD. negative: Stiff neck, Carotid bruit Respiratory: positive: No respiratory distress. negative: Wheezes, Rales, Rhonchi Cardiovascular: positive: Regular rate & rhythm, Systolic murmur. negative: Gallop/S4, Friction rub Peripheral Pulses: positive: 0 Abdomen: positive: No organomegaly, Nml bowel sounds, No distention, Tenderness (Minimal, minimal tenderness left lower quadrant right now. She says it is improved tremendously since she has been in the ER.), Other (Flat abdomen, not distended.). negative: Guarding, Rebound Skin: positive: Warm, Dry, Pallor, Other (Feet are very cold to touch. Ruborous.) Extremities: positive: Non-tender, Full ROM, No pedal edema Neurologic/Psychiatric: positive: Oriented x3, CN's nml (2-12), Motor nml Conclusion/Plan - Problem List (1) Severe dehydration Conclusion/Plan: Due to lack of p.o. intake for 3 days. This in turn is supposedly due to generalized abdominal pain. This woman has a history of chronic constipation and CT shows dilated gassy bowel, not severe. Stool throughout bowel into rectal vault. She has started to respond already with IV fluids, and enema in the emergency room. Unfortunately the initial thought was that she may have polycythemia and was also phlebotomized 500 cc. Current exam is benign. No acute abdomen. No UTI. She does have new ALVIN with this due to the dehdyration Plan: Observation status Clear liquids. Lactated Ringer's at 200 cc an hour Repeat labs at 11 in the morning If she is stable, will most likely be able to leave by afternoon (2) Obstipation Conclusion/Plan: Responding to enemas in the ER Plan: Nutrition consult to see if change in diet might be helpful (3) Hypokalemia Conclusion/Plan: Supplement with IV. (4) Hypertension Conclusion/Plan: She has been unable to take her medications because she has been nauseated, vomiting. Will resume metoprolol in the morning. Qualifiers: Hypertension type: essential hypertension Qualified Code(s): I10 - Essential (primary) hypertension - Lab Results Lab results reviewed: Yes Fish Bones: 08/28/20 19:30 08/28/20 19:47 - Diagnostic Imaging Results Diagnostic Imaging Results: positive: Other (Preliminary report not available to me. Emergency room physician discussed the results of the CT scan showing no acute findings with stool that was copious in the bowel, mild gassy distention, and stool in the rectal vault. No perforation, no free air, no air-fluid le vels.) Core Measures - Anticipated LOS I expect patient to be DC'd or transferred within 96 hours.: Yes - DVT/VTE - Prophylaxis VTE/DVT Device ordered at admit?: No Not Ordered - Low Risk: Very low risk
[2020-08-29] MEDS ORDERED: LACTATED RINGERS 1,000 ML IV SCH (02:00)
[2020-08-29 02:13] LABS: C. PNEUMONIAE- RESP PCR PANEL NOT DETECTED
[2020-08-29] MEDS: LACTATED RINGERS 1,000 ML IV SCH ×2 (03:07→16:50)
[2020-08-29] MEDS: POTASSIUM CHLOR 10 MEQ/100 ML 10 MEQ/100 ML BAG IV SCH ×4 (03:07→06:36)
[2020-08-29] MEDS: ACETAMINOPHEN 325 MG TABLET PO PRN ×2 (06:32→12:01)
[2020-08-29] MEDS: oxyCODONE 5 MG TABLET PO PRN ×2 (08:51→12:57)
[2020-08-29] MEDS: SODIUM CHLORIDE FLUSH 0.9% 10 ML SYRINGE IVP SCH ×2 (08:51→16:49)
[2020-08-29] MEDS ORDERED: METOPROLOL TARTRATE 50 MG TABLET PO SCH (09:00)
--- NOTE | 2020-08-29 11:12 | PHARMACY PROGRESS NOTE ---
- Best Possible Medication History Admit Date and Time: 08/29/20 0106 Processed by: Pharmacy Medication History completed: Yes Patient Interview: Completed Secondary Source(s): Physician records As the person ultimately responsible for medication therapy, providers are able to order a medication from an existing home medication list in [facility] via the "Reconcile Routine" prior to Confirmation of that medication by sales support consultant. Such practice is discouraged except when the physician, in their clinical judgment, deems that a medical need exists for a medication without regard to previous use.
[2020-08-29 11:17] LABS: BASOPHILS % (AUTO) 0.3 %; HGB - HEMOGLOBIN 13.6 g/dL (12.0-16.0); MEAN CORPUSCULAR HGB CONC 33.2 g/dL (32.0-36.0); PLT - PLATELET COUNT 205 10^3/uL (130-450); RED CELL DISTRIBUTION WIDTH 13.2 % (12.0-15.0)
--- NOTE | 2020-08-29 11:20 | CT Report ---
PROCEDURE: Abdomen/Pelvis W INDICATIONS: LLQ pain, diverticulitis suspected CONTRAST: IV CONTRAST: Optiray 320 ml: 80 PO CONTRAST: *NO PO CONTRAST TECHNIQUE: After the administration of nonionic iodinated contrast, 5 mm thick sections acquired from the diaphr agms to the symphysis. 5 mm thick coronal and sagittal reformats were acquired. For radiation dose reduction, the following was used: automated exposure control, adjustment of mA and/or kV according to patient size. COMPARISON: CT dated 12/06/2019 FINDINGS: Image quality: Exam appears performed within the late arterial phase instead of the portal venous pha se. ABDOMEN: Lung bases: Lung bases are clear. Heart size is normal. Solid organs: Mild hepatomegaly. Unremarkable enhancement within limits of this study. Spleen is unre markable. Gallbladder is unremarkable Biliary system is non dilated. Pancreas enhances normally. N o adrenal nodules. Kidneys demonstrate normal size and enhancement, without hydronephrosis. Peritoneum and bowel: There is subtle increased callosal enhancement of the stomach. There is no evid ence of small bowel obstruction. Postsurgical changes of the ileocecal junction and within the distal sigmoid. No free fluid or pneumoperitoneum. There is nonspecific bowel gas pattern with air througho ut the majority of the colon and distal ileum with a few air-fluid levels within the right colon and a sonogram. No definite fluid is noted within the left colon. No evidence of diverticulitis. Nodes and vessels: No retroperitoneal or mesenteric adenopathy by size criteria. Aorta and inferior vena cava are normal in size. Diffuse atherosclerotic calcifications throughout the abdominal and p elvic vasculature. Miscellaneous: Unchanged fat-containing lumbar hernias bilaterally. PELVIS: Genitourinary: Bladder wall thickness is normal. Miscellaneous: No inguinal hernias or adenopathy. Bones: No suspicious bony lesions. No vertebral body compression fractures. IMPRESSION: No evidence of diverticulitis. Nonspecific bowel gas pattern with prominence of the distal ileum and large bowel which may suggest ileus. No evidence of small bowel obstruction. Questionable increased mucosal enhancement of the stomach may be due to timing of contrast. Recommend correlation for gastritis. Hepatomegaly. Agree with preliminary report. Reviewed by: Reinier Lee DO on 08/29/2020 10:19 AM [facility] Approved by: Reinier Lee DO on 08/29/2020 10:19 AM [facility] Station ID: [id number]
[2020-08-29 11:27] LABS: ALBUMIN 3.6 g/dL (3.2-5.5); ALBUMIN/GLOBULIN RATIO 1.6 (1.0-2.2); BILIRUBIN,TOTAL 0.8 mg/dL (0.2-1.0); CALCIUM 7.9 mg/dL (8.5-10.3); CREATININE 0.7 mg/dL (0.4-1.0); TOTAL PROTEIN 5.8 g/dL (6.7-8.2)
[2020-08-29 11:41] LABS: EOSINOPHILS % (AUTO) 0.1 %; LYMPHOCYTES % (AUTO) 27.2 %; MEAN CORPUSCULAR HEMOGLOBIN 29.4 pg (27.0-31.0); MEAN CORPUSCULAR VOLUME 88.7 fL (81.0-99.0); MEAN PLATELET VOLUME 11.7 fL (7.9-10.8); MONOCYTES % (AUTO) 6.2 %; NEUTROPHILS % (AUTO) 65.4 %; RED BLOOD COUNT 4.62 10^6/uL (4.20-5.40); WHITE BLOOD COUNT 18.6 x10^3/uL (4.8-10.8)
[2020-08-29 11:54] LABS: ABNORMAL LYMPHS % (MANUAL) 0 %; BAND NEUTROPHILS % (MANUAL) 0 %
[2020-08-29 12:15] LABS: LYMPHOCYTES # (MANUAL) 4.8 10^3/uL (1.5-3.5); LYMPHOCYTES % (MANUAL) 26 %
[2020-08-29 12:16] LABS: DIFFERENTIAL COMMENT MANUAL DIFFERENTIAL; PLATELET ESTIMATE, MANUAL NORMAL (130-450,000) (NORMAL); PLATELET MORPHOLOGY NORMAL APPEARANCE (NORMAL); RBC MORPHOLOGY (MULTIPLE) NORMAL APPEARANCE (NORMAL)
[2020-08-29] MEDS: METOPROLOL TARTRATE 50 MG TABLET PO SCH (21:29)
[2020-08-30] MEDS: SODIUM CHLORIDE FLUSH 0.9% 10 ML SYRINGE IVP SCH (00:13)
[2020-08-30] MEDS: ACETAMINOPHEN 325 MG TABLET PO PRN (00:27)
[2020-08-30 05:42] LABS: BASOPHILS # (AUTO) 0.1 10^3/uL (0.0-0.1); BASOPHILS % (AUTO) 0.6 %; EOSINOPHILS # (AUTO) 0.1 10^3/uL (0.0-0.7); EOSINOPHILS % (AUTO) 0.8 %; HGB - HEMOGLOBIN 12.8 g/dL (12.0-16.0); LYMPHOCYTES # (AUTO) 4.8 10^3/uL (1.5-3.5); LYMPHOCYTES % (AUTO) 35.5 %; MEAN CORPUSCULAR HEMOGLOBIN 30.7 pg (27.0-31.0); MEAN CORPUSCULAR HGB CONC 33.1 g/dL (32.0-36.0); MEAN CORPUSCULAR VOLUME 92.8 fL (81.0-99.0); MEAN PLATELET VOLUME 11.7 fL (7.9-10.8); MONOCYTES # (AUTO) 0.9 10^3/uL (0.0-1.0); NEUTROPHILS # (AUTO) 7.5 10^3/uL (1.5-6.6); NEUTROPHILS % (AUTO) 55.7 %; PLT - PLATELET COUNT 170 10^3/uL (130-450); RED BLOOD COUNT 4.17 10^6/uL (4.20-5.40); RED CELL DISTRIBUTION WIDTH 13.3 % (12.0-15.0); WHITE BLOOD COUNT 13.4 x10^3/uL (4.8-10.8)
[2020-08-30 06:01] LABS: CALCIUM 8.1 mg/dL (8.5-10.3); CREATININE 0.7 mg/dL (0.4-1.0)
--- NOTE | 2020-08-30 08:11 | XRAY Report ---
PROCEDURE: Abdomen 2 View X-Ray INDICATIONS: Stool evaluation TECHNIQUE: 2 views of the abdomen were acquired. COMPARISON: 08/28/2020 CT abdomen and pelvis FINDINGS: Small volume of stool in the right colon and sigmoid colon. Diffuse gaseous distention of the small a nd large bowel. No threshold enlarged loop or fluid level identified. No findings of pneumatosis or p neumoperitoneum. IMPRESSION: Small volume stool in the colon but not significantly changed from 08/28/2020 CT. Reviewed by: Clinton Yarbrough MD on 08/30/2020 8:10 AM PST Approved by: Clinton Yarbrough MD on 08/30/2020 8:10 AM PST Station ID: [id number]
--- NOTE | 2020-08-30 08:43 | Discharge Plan ---
Discharge Plan Problem Reviewed?: Yes Disposition: Home, Self Care Condition: Stable Diet: Regular Activity Restrictions: Activity as Tolerated Shower Restrictions: No Driving Restrictions: No Health Concerns: You were seen in the hospital because of significant dehydration. This caused your kidney numbers to be a little bit elevated and you had abdominal pain like ly due to constipation. This has since been relieved. She responded well to IV fluids and your kidney function has returned to normal. It was found during this hospitalization that your blood counts were significantly elevated initially. Your hemoglobin was 22 which is significantly elevated compared to normal which is around 15-16. This can occasionally be due to severe dehydration but we will need to rule out any potential bone marrow problems which may cause you to produce more blood cells. You did have blood removed in the emergency department. Your blood counts are now within normal limits. Plan of Treatment: Please continue your home medications as you were previously taking. Please make sure to drink plenty of fluids so that you do not become dehydrated. We did check a blood test called JAK2. This is to make sure there is no problem with your body producing a large amount of blood cells. If this is positive, you need to follow-up with a blood doctor call the broker associate and oncologist. This test will not come back for a few days and so you need to follow-up with your primary care provider for results. Your white count is also a little elevated as well as the lymphocytes. This has been elevated at times over the past 2 years. Given your sister has a history of CLL, this will need to be monitored closely to ensure that you do not have any evidence of leukemia. Care Goals: Please return to the emergency department if you develop any fevers, chills, worsening abdominal pain. Assessment: Patient expressed understanding of the treatment plan. Additional Instructions or Follow Up instructions: Please follow-up with your primary care provider in 1 week to follow-up on labs. No Smoking: If you smoke, Please STOP! Call for help. Follow-up with: Sydnie Doe PA-C [Provider Admit Priv/Credential] -
--- NOTE | 2020-08-30 08:43 | DISCHARGE SUMMARY ---
"Discharge Summary Admit Date: 08/29/20 Discharge Date: 08/30/20 Code Status: Attempt Resuscitation Condition at Discharge: Stable Discharge Disposition: 01 Home, Self Care - DIAGNOSES Admission Diagnoses: Severe dehydration Obstipation Hypokalemia Hypertension Discharge Diagnoses with Status of Each Condition: Dehydration - resolved. Acute kidney injury - resolved. Elevated hemoglobin - improved. Leukocytosis - improved. Hypertension - stable. - HPI History of Present Illness: H&P per Dr. Mahmood: She is a 65-year-old white female who has a previous history of diverticulitis with bowel resection in August 2017, colostomy, and then takedown of the colostomy with reanastomosis in January 2018. Prior to this she did have a few episodes of bowel obstruction and partial bowel obstruction. She also has a history of cyclical vomiting. She was admitted in August 2018 for partial small bowel obstruction with acute kidney injury due to hypovolemia. She was seen in the emergency room November 2019 with nausea vomiting and abdominal pain. She was seen twice that month. With the first episode, CT of the abdomen showed a severe dehydration with collapse of the IVC. Blood pressure was markedly elevated because she had not been taking her blood pressure medicines. She was given her blood pressure medicines, IV fluids, and felt well enough to go home. She received IV fluids, Zofran, and a small dose of Ativan. Her labs were unr emarkable. She was treated with more Phenergan, Benadryl and Dilaudid. She did well enough to go home. She then returned a second time. Blood pressure was again elevated over 200 systolic. Elevated white cell count. She was treated symptomatically with IV fluids, Zofran, Ativan. Phenergan, Benadryl, Dilaudid. [place] much better and then sent home. She always has a history of severe constipation. That got better when she had her partial bowel resection. She in fact had loose stools. But over time, the constipation has slowly crept back. She is cut out foods from her diet such as lactose. Gone up on the fiber, down on the fiber, and nothing seems to make the constipation better. She now presents to the emergency room again. She has been having increasing abdominal pain for the last 3 nights. Severe cramping in the left lower quadrant. She had nausea and vomiting the first couple of days and was unable to keep down even a little bit of 7-Up. She was having chills and sweats. No bowel movements. Just a lot of crampy gas. Lots of flatus. She does not remember her last bowel movement. In the ER, She was afebrile, only mildy hypertensive this time at 145-156 systolic. Respirations normal and oxygenating normally. Her abdominal exam had positive bowel sounds with tenderness in the left lower quadrant. But no rebound or guarding, no peritoneal signs. Normal hemoglobin for her is 14 to 16 g. With her November 2017 visit she was 16.8. Today hemoglobin was 21.7. White cell count was 17.9 and she is intermittently chronically elevated off and on for years. Platelets are normal. BUN and creatinine were also elevated for the first time this year. She is usually anywhere from 11-20 on her BUN and she is 54 tonight. Baseline creatinine is 0.8 and she is 1.3. Bili is mildly elevated at 2 but has been intermittently elevated in the past. Liver enzymes are normal. She was seen by 2 ER physicians. The first ER physician thought that she may have new polycythemia and did phlebotomy of 500 cc. Also gave her a liter of fluid. He then ordered a CT scan of the abdomen and the CT shows stool in her rectal vault, mild gassy distention diffusely in the left bowel. But no acute findings of perforation, obstruction, etc. IVC was investigated via ultrasound at the bedside and she is profoundly dehydrated. When I asked what it was that dehydrated her, the emergency room physician feels that she just has gassy abdominal pain, and the patient has not been eating for 3 days. As such she is asking for observation status for hydration. She is already started to feel much better with the IV fluids given to her in the emergency room. - CONSULTS | PROCEDURES Procedures: CT of the abdomen and pelvis showed no evidence of diverticulitis. Nonspecific gas pattern with prominence of the distal ileum and large bowel which may suggest ileus. No evidence of small bowel obstruction. Questionable increased mucosal enhancement of the stomach may be due to timing of contrast. Recommend correlation for gastritis. Hepatomegaly. - HOSPITAL COURSE Hospital Course: She was admitted initially under observation for dehydration due to nausea and vomiting and poor oral intake. She did have acute kidney injury on admission. This resolved with IV fluids. Her hemoglobin was initially nearly 22. She had phlebotomy in the emergency department with 500 mL of blood removed. It is unclear if this was due to severe dehydration and hemoconcentration or if this could be due to polycythemia. JAK2 was ordered and is pending this will need to be followed up by her primary care provider and this was discussed with the patient. Her white count was also elevated and this improved the following day. This was felt to likely be reactive in nature. Her lymphocytes were slightly elevated and she is a family history of CLL. Review of prior records revealed an occasional leukocytosis with elevated lymphocytes. I recommended that she follow-up with her primary care provider to monitor her CBC as if the leukocytosis persists as well as lymphocytosis, she may need oncology follow-up to ensure there is no evidence of CLL. She did end up being hospitalized for 2 evenings as following the initial night, she had some nausea and abdominal pain and there was concern that if she went home, she would have inability to take oral intake and given she was so dehydrated on admission, she remained hospitalized for further IV fluids. - ALLERGIES Allergies/Adverse Reactions: Allergies Allergy/AdvReac Type Severity Reaction Status Date / Time Penicillins Allergy Unknown Verified 08/28/20 19:18 - MEDICATIONS Home Medications: Ambulatory Orders Medication Instructions Recorded Confirmed Acetaminophen [Tylenol] 975 mg PO Q6H PRN 08/29/20 08/29/20 Metoprolol Succinate [Toprol Xl] 100 mg PO BID 08/29/20 08/29/20 Promethazine Supp [Phenergan Supp] 25 mg NE Q6H PRN 08/29/20 08/29/20 - PHYSICAL EXAM AT DISCHARGE General Appearance: positive: No acute distress, Alert Eyes Bilateral: positive: Normal inspection, Conjunctivae nml ENT: positive: ENT inspection nml Neck: positive: Nml inspection Respiratory: positive: No respiratory distress. negative: Wheezes, Rales Cardiovascular: positive: Regular rate & rhythm, No murmur. negative: Tachycardia Abdomen: positive: Non-tender, No distention. negative: Tenderness, Guarding, Rebound Skin: positive: Warm, Dry Extremities: positive: Full ROM, No pedal edema Neurologic/Psychiatric: positive: Oriented x3, Motor nml. negative: Disoriented to person, Disoriented to place, Disoriented to time Physical Exam Other/Comments: Vital Signs - 24 hr 11/08/30/20 08/30/20 15:52 00:00 08:00 Temperature 37.4 C 37.2 C 37.2 C Heart Rate [ 88 73 93 Brachial] Respiratory 18 16 18 Rate Blood Pressure 112/81 H 103/73 115/83 H [Right Brachial artery] O2 Saturation 98 99 98 Oxygen O2 Source Room air - LABS Result Diagrams: 08/30/20 05:32 08/30/20 05:32 - DIAGNOSTIC IMAGING Diagnostic Imaging Results: Final report reviewed - FOLLOW UP Follow Up: Will be following up with her general surgeon the day of discharge. I also asked her to follow-up with her primary care provider in 1 week to follow-up on the JAK2 as well as monitor her CBC. - TIME SPENT Time Spent in Discharge (Minutes): 32"
[2020-08-30] MEDS: METOPROLOL TARTRATE 50 MG TABLET PO SCH (08:46)
[2020-08-30 09:27] VITALS: BP 115/83
[2020-09-07 13:23] LABS: JAK2 COMMENT NOT DETECTED; JAK2 SPECIMEN TYPE NG
== END 2020-08-30 12:45 | disposition home or self-care (01) | DRG 641 ==
LOC: ED 19:10 → MS2 08-29 01:06 → OBSVTOIN 08-29 13:30
PROVIDERS: ADMIT Specialist; ATTEND Internal Medicine
DX: E86.0 Dehydration (principal); N17.9 Acute kidney failure, unspecified; R71.8 Other abnormality of red blood cells; E87.2 Acidosis; D72.829 Elevated white blood cell count, unspecified; K59.09 Other constipation; E78.00 Pure hypercholesterolemia, unspecified; R01.1 Cardiac murmur, unspecified; Z66 Do not resuscitate; Z80.6 Family history of leukemia; Z90.49 Acquired absence of other specified parts of digestive tract; Z87.891 Personal history of nicotine dependence; Z87.19 Personal history of other diseases of the digestive system
CPT/HCPCS: 36415; 74019; 74177; 80048; 80053; 81001; 81270; 83690; 84443; 85025; 87631; 96361; 96365; 96366; 96375; 96376; 99285; A9270; G0378; J1170; J2765; J7120; Q9967; 0202U; 81003; 87086

== ENCOUNTER 2020-10-06 09:41 | Day surgery (SDC) | payer MEDICARE, OTHER ==
[2020-10-06] MEDS ORDERED: LACTATED RINGERS 1,000 ML IV ONE ×2 (09:55→12:47)
[2020-10-06] MEDS ORDERED: MIDAZOLAM 2 MG/2 ML VIAL ONE ×3 (11:45→12:09)
[2020-10-06] MEDS ORDERED: fentaNYL 250 MCG/5 ML VIAL ONE (11:46)
[2020-10-06 12:51] VITALS: BP 133/90
== END 2020-10-06 09:42 | disposition home or self-care (01) ==
LOC: SDS 09:41
PROVIDERS: ATTEND Surgery
DX: Z12.11 Encounter for screening for malignant neoplasm of colon (principal); K64.8 Other hemorrhoids; K56.600 Partial intestinal obstruction, unspecified as to cause; Z86.010 Personal history of colon polyps; I10 Essential (primary) hypertension; R01.1 Cardiac murmur, unspecified
CPT/HCPCS: G0105; J3010; J7120

== ENCOUNTER 2021-01-22 09:03 | Outpatient (CLI) | payer MEDICARE, OTHER | END 2021-01-22 09:04 | disposition critical access hospital (66) | LOC: EMS 09:03 | DX: R11.2 Nausea with vomiting, unspecified (principal); R10.9 Unspecified abdominal pain | CPT/HCPCS: A0425; A0427 ==

== ENCOUNTER 2021-01-22 09:29 | Emergency (ER) | payer MEDICARE, OTHER ==
[2021-01-22] MEDS ORDERED: SODIUM CHLORIDE 0.9% 1,000 ML IV STA (09:55)
[2021-01-22] MEDS ORDERED: ONDANSETRON 4 MG/2 ML VIAL IVP STA (10:06)
[2021-01-22] MEDS ORDERED: METOPROLOL TARTRATE 50 MG TABLET PO STA (10:08)
[2021-01-22 10:10] LABS: BASOPHILS # (AUTO) 0.1 10^3/uL (0.0-0.1); BASOPHILS % (AUTO) 0.5 %; EOSINOPHILS # (AUTO) 0.1 10^3/uL (0.0-0.7); EOSINOPHILS % (AUTO) 0.5 %; HCT - HEMATOCRIT 51.6 % (37.0-47.0); HGB - HEMOGLOBIN 17.3 g/dL (12.0-16.0); LYMPHOCYTES # (AUTO) 5.2 10^3/uL (1.5-3.5); MEAN CORPUSCULAR HEMOGLOBIN 28.9 pg (27.0-31.0); MEAN CORPUSCULAR HGB CONC 33.5 g/dL (32.0-36.0); MEAN CORPUSCULAR VOLUME 86.1 fL (81.0-99.0); MEAN PLATELET VOLUME 11.6 fL (7.9-10.8); MONOCYTES # (AUTO) 0.8 10^3/uL (0.0-1.0); MONOCYTES % (AUTO) 4.8 %; NEUTROPHILS # (AUTO) 10.6 10^3/uL (1.5-6.6); NEUTROPHILS % (AUTO) 62.7 %; PLT - PLATELET COUNT 247 10^3/uL (130-450); RED BLOOD COUNT 5.99 10^6/uL (4.20-5.40); RED CELL DISTRIBUTION WIDTH 14.9 % (12.0-15.0); WHITE BLOOD COUNT 16.9 x10^3/uL (4.8-10.8)
--- NOTE | 2021-01-22 10:10 | ED Physician Documentation ---
History of Present Illness - Stated complaint Stated Complaint: N/V - Chief complaint Chief Complaint: Abd Pain - History obtained from History obtained from: Patient - Additonal information Additional information: 65-year-old woman with past medical history of high blood pressure on metoprolol 100 mg twice daily, also with history of colon rupture 2 years ago status post colostomy with reversal (surgeon Dr. Jones), PMH childhood heart murmur, presents with nausea since Sunday, worse since yesterday as well as a couple episodes of nonbloody nonbilious nausea and vomiting a couple days ago that have resolved. Patient denies chest pain, shortness of breath lightheadedness abdominal pain and urinary symptoms. She states she had a normal colonoscopy about 2 months ago. Patient states that she gets cyclic episodes of vomiting and does not know why it occurs. It has been suggested that she has cyclic vomiting syndrome. Patient denies any marijuana use. Former smoker over 20 years ago. Review of Systems Ten Systems: 10 systems reviewed and negative Constitutional: denies: Fever GI: reports: Nausea PD PAST MEDICAL HISTORY - Past Medical History Past Medical History: Yes Cardiovascular: Hypertension Respiratory: None Neuro: None Endocrine/Autoimmune: None GI: Other ELECTROMECHANICAL TECHNICIAN: None : None HEENT: None Psych: None Musculoskeletal: None Derm: None - Past Surgical History Past Surgical History: No General: Bowel surgery - Present Medications Home Medications: Ambulatory Orders Medication Instructions Recorded Confirmed Metoprolol Succinate [Toprol Xl] 100 mg PO BID 08/29/20 01/22/21 - Allergies Allergies/Adverse Reactions: Allergies Allergy/AdvReac Type Severity Reaction Status Date / Time Penicillins Allergy Unknown Verified 01/22/21 09:45 - Social History Does the pt smoke?: No Smoking Status: Never smoker Does the pt drink ETOH?: Yes Does the pt have substance abuse?: No - Immunizations Immunizations are current?: Yes - POLST Patient has POLST: Yes POLST Status: DNR PD ED PE NORMAL - Vitals Vital signs reviewed: Yes - General General: Alert and oriented X 3 - HEENT HEENT: Atraumatic, PERRL, EOMI - Neck Neck: Supple, no meningeal sign - Cardiac Cardiac: Other (loud systolic murmur. tachycardic rate, regular rhythm. ) - Respiratory Respiratory: No respiratory distress, Clear bilaterally - Abdomen Abdomen: Non tender, Non distended - Derm Derm: Normal color, Warm and dry - Extremities Extremities: No deformity - Neuro Neuro: Alert and oriented X 3 - Psych Psych: Normal mood, Normal affect Results - Vitals Vitals: Vital Signs - 24 hr 01/22/21 01/22/21 01/22/21 09:32 09:37 10:18 Temperature 36.7 C Heart Rate 125 H 125 H 120 H Respiratory 16 16 14 Rate Blood Pressure 146/133 H 146/129 H 156/117 H O2 Saturation 97 96 97 01/22/21 11:13 Temperature Heart Rate 74 Respiratory 11 L Rate Blood Pressure 158/118 H O2 Saturation 99 Oxygen O2 Source Room air - Labs Labs: Laboratory Tests 01/22/21 01/22/21 09:55 10:05 WBC 16.9 H RBC 5.99 H Hgb 17.3 H Hct 51.6 H MCV 86.1 MCH 28.9 MCHC 33.5 RDW 14.9 Plt Count 247 MPV 11.6 H Neut # (Auto) 10.6 H Lymph # (Auto) 5.2 H Donley # (Auto) 0.8 Eos # (Auto) 0.1 Baso # (Auto) 0.1 Absolute Nucleated RBC 0.00 Nucleated RBC % 0.0 Manual Slide Review Indicated WBC Morphology Platelet Estimate NORMAL (130-450,000) Platelet Morphology NORMAL APPEARANCE RBC Morph Micro Appear NORMAL APPEARANCE Sodium 133 L Potassium 3.4 L Chloride 94 L Carbon Dioxide 25 Anion Gap 14.0 H BUN 40 H Creatinine 1.0 Estimated GFR (MDRD) 55 L Glucose 122 H Calcium 9.5 Total Bilirubin 1.4 H AST 37 ALT 29 Alkaline Phosphatase 87 Total Protein 7.9 Albumin 4.9 Globulin 3.0 Albumin/Globulin Ratio 1.6 Lipase 21 L PD MEDICAL DECISION MAKING - ED course ED course: 65-year-old woman presents stating that she has been nauseous since Sunday and was unable to tolerate fluids this morning. She is tachycardic on arrival and states that she has not been taking her metoprolol. Normally she takes 100 mg twice a day. We will give her metoprolol, obtain labs, and give IV fluids and Zofran. Patient states her symptoms have improved. Rectal exam with small amount of mucus, no blood no stool. She does state that she is passing flatus and her last bowel movement was several days ago. Discussed with Dr. Wright who will get in touch with Dr. Hernández and let him know she is in the emergency room. Dr. Hernández - patient will f/u in clinic. plan to c/w Bowel regimen including senna, docusate, MiraLAX and drinking lots of fluids and getting lots of fiber. He is recommending that she have a balloon dilation of the stricture and she would prefer to continue with conservative measures at this time. Strict return precautions given. Departure - Departure Disposition: 01 Home, Self Care Clinical Impression: Heart murmur, Nausea, Constipation, Stricture intestinal Condition: Good Instructions: ED Constipation Follow-Up: Wilbert Hernández MD [Provider Admit Priv/Credential] - Comments: You are seen in the emergency department for constipation and nausea. I am glad you are feeling better. I discussed with Dr. Hernández, your surgeon who says to follow-up in clinic and to drink lots of water. You likely will need a balloon dilation of your intestinal stricture. Continue to take your anticonstipation medications and eat a high-fiber diet. Return to the emergency department if you have any of the symptoms that we discussed or if you have any new or worsening symptoms or other concerns.
[2021-01-22 10:11] LABS: SLIDE REVIEW? Indicated
[2021-01-22 10:22] LABS: ALBUMIN 4.9 g/dL (3.2-5.5); ALBUMIN/GLOBULIN RATIO 1.6 (1.0-2.2); BILIRUBIN,TOTAL 1.4 mg/dL (0.2-1.0); CALCIUM 9.5 mg/dL (8.5-10.3); POTASSIUM 3.4 mmol/L (3.5-5.0); TOTAL PROTEIN 7.9 g/dL (6.7-8.2)
[2021-01-22 10:31] LABS: PLATELET ESTIMATE, MANUAL NORMAL (130-450,000) (NORMAL); PLATELET MORPHOLOGY NORMAL APPEARANCE (NORMAL); RBC MORPHOLOGY (MULTIPLE) NORMAL APPEARANCE (NORMAL)
[2021-01-22] MEDS ORDERED: LACTATED RINGERS 1,000 ML IV STA (10:45)
[2021-01-22 11:56] VITALS: BP 143/111
== END 2021-01-22 12:08 | disposition home or self-care (01) ==
LOC: EDUNIT# → ED 09:29
DX: R11.2 Nausea with vomiting, unspecified (principal); K59.00 Constipation, unspecified; K56.609 Unspecified intestinal obstruction, unspecified as to partial versus complete obstruction; R00.0 Tachycardia, unspecified; R01.1 Cardiac murmur, unspecified; I10 Essential (primary) hypertension; Z87.891 Personal history of nicotine dependence; Z66 Do not resuscitate
CPT/HCPCS: 36415; 80053; 83690; 85025; 93005; 96374; 99283; 99284; A9270; J7120

== ENCOUNTER 2021-02-11 15:56 | Outpatient (CLI) | payer MEDICARE, OTHER | END 2021-02-11 15:57 | disposition critical access hospital (66) | LOC: EMS 15:56 | DX: R10.32 Left lower quadrant pain (principal); R11.10 Vomiting, unspecified | CPT/HCPCS: A0425; A0427 ==

== ENCOUNTER 2021-02-11 15:59 | Emergency (ER) | payer MEDICARE, OTHER ==
--- NOTE | 2021-02-11 16:08 | ED Physician Documentation ---
PD HPI ABD PAIN - Stated complaint Stated Complaint: ABD PX/VOMITING - History obtained from History obtained from: Patient, EMS - Additional information Additional information: 65-year-old woman presents by ambulance for abdominal pain and vomiting. Couple of years ago she had a colostomy and subsequently reversal for same. She has a history of hypertension on metoprolol 100 mg twice a day. Also has a history of heart murmur. She was seen here last week for vomiting which got better but now got worse again. She complains of left-sided abdominal pain severe vomiting and is noted to be severely hypertensive in route. 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 : None HEENT: None Psych: None Musculoskeletal: None Derm: None - Past Surgical History Past Surgical History: No General: Bowel surgery - Present Medications Home Medications: Ambulatory Orders Medication Instructions Recorded Confirmed Metoprolol Succinate [Toprol Xl] 100 mg PO BID 08/29/20 02/11/21 HYDROcod/ACETAM 5/325 [[place] 5/325] 1 - 2 tab PO Q6H PRN #10 tablet 02/11/21 Metoclopramide [Reglan] 10 mg PO Q6H PRN #20 tablet 02/11/21 - Allergies Allergies/Adverse Reactions: Allergies Allergy/AdvReac Type Severity Reaction Status Date / Time Penicillins Allergy Unknown Verified 02/11/21 16:04 - Social History Does the pt smoke?: No Smoking Status: Never smoker Does the pt drink ETOH?: Yes Does the pt have substance abuse?: No - Immunizations Immunizations are current?: Yes - POLST Patient has POLST: Yes POLST Status: DNR PD ED PE NORMAL - Vitals Vital signs reviewed: Yes - General General: Alert and oriented X 3, Other (Uncomfortable and retching with significant hypertension) - HEENT HEENT: PERRL, EOMI - Neck Neck: Supple, no meningeal sign, No bony TTP - Cardiac Cardiac: RRR, Other (2/6 sys mmr) - Respiratory Respiratory: No respiratory distress, Clear bilaterally - Abdomen Abdomen: Other (Concern for pulsatile abdominal mass although she is quite thin, mild left lower quadrant tenderness, diminished to absent bowel tones.) - Back Back: No CVA TTP, No spinal TTP - Derm Derm: Normal color, Warm and dry - Extremities Extremities: No edema, No calf tenderness / cord - Neuro Neuro: Alert and oriented X 3, Normal speech Results - Vitals Vitals: Vital Signs - 24 hr 02/11/21 02/11/21 02/11/21 16:04 16:31 16:42 Temperature 36.2 C L Heart Rate 109 H 78 74 Respiratory 10 L 20 19 Rate Blood Pressure 242/146 H 184/117 H 167/112 H O2 Saturation 98 94 94 02/11/21 17:40 Temperature Heart Rate 77 Respiratory 16 Rate Blood Pressure O2 Saturation Oxygen O2 Source Room air - EKG (time done) 1614 Rate: Rate (enter#) (105) Rhythm: Sinus tachycardia, LAE [place]: Normal Intervals: Prolonged QT QRS: LVH Ischemia: Non specific changes Computer interpretation: Agree with computer - Labs Labs: Laboratory Tests 02/11/21 02/11/21 02/11/21 16:18 16:18 16:18 WBC 12.7 H RBC 5.40 Hgb 15.9 Hct 48.1 H MCV 89.1 MCH 29.4 MCHC 33.1 RDW 15.0 Plt Count 300 MPV 10.6 Neut # (Auto) 9.7 H Lymph # (Auto) 2.6 [place] # (Auto) 0.3 Eos # (Auto) 0.0 Baso # (Auto) 0.0 Absolute Nucleated RBC 0.00 Nucleated RBC % 0.0 Sodium 136 Potassium 3.1 L Chloride 98 L Carbon Dioxide 24 Anion Gap 14.0 H BUN 8 Creatinine 0.7 Estimated GFR (MDRD) 83 L Glucose 152 H Calcium 9.4 Magnesium 1.7 Total Bilirubin 0.8 AST 28 ALT 22 Alkaline Phosphatase 87 Troponin I High Sens B-Natriuretic Peptide 187 H Total Protein 8.6 H Albumin 5.2 Globulin 3.4 Albumin/Globulin Ratio 1.5 Lipase 22 Urine Color Urine Clarity Urine pH Ur Specific [place] Urine Protein Urine Glucose (UA) Urine Ketones Urine Occult Blood Urine Nitrite Urine Bilirubin Urine Urobilinogen Ur Leukocyte Esterase Urine RBC Urine WBC Ur Squamous Epith Cells Urine Bacteria Urine Mucus Ur Microscopic Review Urine Culture Comments Urine Opiates Screen Ur Oxycodone Screen Urine Methadone Screen Ur Propoxyphene Screen Ur Barbiturates Screen Ur Tricyclics Screen Ur Phencyclidine Scrn Ur Amphetamine Screen U Methamphetamines Scrn U Benzodiazepines Scrn Urine Cocaine Screen U Cannabinoids Screen 02/11/21 02/11/21 16:18 16:55 WBC RBC Hgb Hct MCV MCH MCHC RDW Plt Count MPV Neut # (Auto) Lymph # (Auto) [place] # (Auto) Eos # (Auto) Baso # (Auto) Absolute Nucleated RBC Nucleated RBC % Sodium Potassium Chloride Carbon Dioxide Anion Gap BUN Creatinine Estimated GFR (MDRD) Glucose Calcium Magnesium Total Bilirubin AST ALT Alkaline Phosphatase Troponin I High Sens 15.0 H* B-Natriuretic Peptide Total Protein Albumin Globulin Albumin/Globulin Ratio Lipase Urine Color YELLOW Urine Clarity HAZY Urine pH 7.5 Ur Specific [place] 1.025 Urine Protein 100 H Urine Glucose (UA) 250 H Urine Ketones 15 H Urine Occult Blood TRACE-LYSE Urine Nitrite NEGATIVE Urine Bilirubin NEGATIVE Urine Urobilinogen 0.2 (NORMAL) Ur Leukocyte Esterase NEGATIVE Urine RBC 0-5 Urine WBC 0-3 Ur Squamous Epith Cells RARE Squamous Urine Bacteria Rare Urine Mucus Few Strands Ur Microscopic Review INDICATED Urine Culture Comments NOT INDICATED Urine Opiates Screen POSITIVE H Ur Oxycodone Screen NEGATIVE Urine Methadone Screen NEGATIVE Ur Propoxyphene Screen NEGATIVE Ur Barbiturates Screen NEGATIVE Ur Tricyclics Screen NEGATIVE Ur Phencyclidine Scrn NEGATIVE Ur Amphetamine Screen NEGATIVE U Methamphetamines Scrn NEGATIVE U Benzodiazepines Scrn NEGATIVE Urine Cocaine Screen NEGATIVE U Cannabinoids Screen POSITIVE H PD MEDICAL DECISION MAKING - ED course ED course: 65-year-old woman with history of colostomy and subsequent reversal reversal presents with left lower quadrant pain and vomiting. On initial evaluation she denied any marijuana use although the combination of profound anxiety, hyperten drake, and vomiting as well as recurrent issues did suggest potential cannabinoid hyperemesis. Her drug screen was positive for this and she admits to use but only every few days. We discussed that if she were using more often this may be causative. The remainder of her work-up showed enteritis on CT. Very mildly elevated white count. Her blood pressure came down well here. Potassium was low. Troponin although high was only 0.1 points higher than the upper end of the range. On reevaluation at 5:48 PM she was nontender and eager to try liquids. I am prescribing a short course of short-acting opioid pain medication for this patient. 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 I have discussed that the opioids are for short term therapy only, and will not be refilled from the ED. Departure - Departure Disposition: 01 Home, Self Care Clinical Impression: Enteritis, Uncontrolled hypertension Abdominal pain Qualifiers: Abdominal location: left lower quadrant Qualified Code(s): R10.32 - Left lower quadrant pain Condition: Stable Record reviewed to determine appropriate education?: Yes Instructions: Abdominal Pain Prescriptions: HYDROcod/ACETAM 5/325 [[place] 5/325] 1 - 2 tab PO Q6H PRN #10 tablet PRN Reason: Pain Metoclopramide [Reglan] 10 mg PO Q6H PRN #20 tablet PRN Reason: nausea or headache Comments: As discussed, it looks like you have what is called an enteritis which is a generally viral illness that causes vomiting and abdominal pain. Thankfully it is usually transient. Also as discussed you should absolutely avoid marijuana going forward as this may be partially causative. Follow-up with your primary care physician, continue current medications. Return if worse or if symptoms are still present tomorrow morning. I am prescribing a short course of narcotic pain medication for you. These are potentially dangerous and addictive medications that should be used carefully. These medications may constipate you. Take an [id number] stool softener (docusate) twice daily with plenty of water while taking these medications. If y ou go 24 hours without a bowel movement, take [id number] miralax, per package instructions. Do not drink or drive while taking these medications. If you received narcotic or sedating medications while in the emergency department, do not drive for 24 hours. Store this medication in a safe, secure place and out of reach of children. It is a violation of federal law to give or sell this medication to another person or to use in a manner other than prescribed. The ED will not refill narcotic prescriptions, including prescriptions lost or stolen. To dispose of unwanted medications: 1. [facility] at [address] in [place] has a medication drop box. They accept prescription medications (in pill form) Sunday through Sunday 9:00 a.m. to 5:00 p.m. 2. The [facility] accepts prescription medications (in pill form only) for disposal year round. Call for more information. 3. Contact the [facility] for the next [facility] sponsored prescription drug collection event. , [phone], or [phone]; Note that many narcotic pain relievers also contain Tylenol/acetaminophen. Please ensure that your total dose of acetaminophen from all sources does not exceed 3 g (3000 mg) per day.
[2021-02-11] MEDS ORDERED: METOCLOPRAMIDE 10 MG/2 ML VIAL IVP STA (16:09)
[2021-02-11] MEDS ORDERED: SODIUM CHLORIDE 0.9% 1,000 ML IV STA (16:09)
[2021-02-11] MEDS ORDERED: LABETALOL 20 MG/4 ML SYRINGE IVP STA (16:09)
[2021-02-11] MEDS ORDERED: HYDROmorphone 1 MG/ML CARPUJECT IVP STA (16:09)
[2021-02-11 16:23] LABS: BASOPHILS % (AUTO) 0.3 %; EOSINOPHILS % (AUTO) 0.1 %; HCT - HEMATOCRIT 48.1 % (37.0-47.0); HGB - HEMOGLOBIN 15.9 g/dL (12.0-16.0); LYMPHOCYTES # (AUTO) 2.6 10^3/uL (1.5-3.5); LYMPHOCYTES % (AUTO) 20.6 %; MEAN CORPUSCULAR HEMOGLOBIN 29.4 pg (27.0-31.0); MEAN CORPUSCULAR HGB CONC 33.1 g/dL (32.0-36.0); MEAN CORPUSCULAR VOLUME 89.1 fL (81.0-99.0); MEAN PLATELET VOLUME 10.6 fL (7.9-10.8); MONOCYTES # (AUTO) 0.3 10^3/uL (0.0-1.0); NEUTROPHILS # (AUTO) 9.7 10^3/uL (1.5-6.6); NEUTROPHILS % (AUTO) 76.6 %; PLT - PLATELET COUNT 300 10^3/uL (130-450); WHITE BLOOD COUNT 12.7 x10^3/uL (4.8-10.8)
[2021-02-11] MEDS ORDERED: IOPAMIDOL-300 100 ML VIAL ONE (16:29)
[2021-02-11 16:39] LABS: ALBUMIN 5.2 g/dL (3.2-5.5); ALBUMIN/GLOBULIN RATIO 1.5 (1.0-2.2); BILIRUBIN,TOTAL 0.8 mg/dL (0.2-1.0); CALCIUM 9.4 mg/dL (8.5-10.3); CREATININE 0.7 mg/dL (0.4-1.0); MAGNESIUM 1.7 mg/dL (1.7-2.8); POTASSIUM 3.1 mmol/L (3.5-5.0); TOTAL PROTEIN 8.6 g/dL (6.7-8.2)
[2021-02-11 17:02] LABS: MUDS CUTOFF CONCENTRATIONS CUTOFF CONC BELOW:
[2021-02-11 17:05] LABS: BILIRUBIN,URINE NEGATIVE (NEGATIVE); GLUCOSE, URINE (UA) 250 mg/dL (NEGATIVE); KETONES,URINE (UA) 15 mg/dL (NEGATIVE); LEUKOCYTE ESTERASE, URINE NEGATIVE (NEGATIVE); NITRITE,URINE NEGATIVE (NEGATIVE); OCCULT BLOOD,URINE TRACE-LYSE (NEGATIVE); PH,URINE 7.5 PH (5.0-7.5); PROTEIN,URINE 100 mg/dL (NEGATIVE); UROBILINOGEN,URINE 0.2 (NORMAL) E.U./dL (NORMAL)
[2021-02-11 17:09] LABS: CLARITY,URINE HAZY (CLEAR)
[2021-02-11 17:15] LABS: RBC,URINE 0-5 /HPF (0-5); WBC,URINE 0-3 /HPF (0-5)
[2021-02-11 17:16] LABS: AMPHETAMINE SCREEN,URINE NEGATIVE (NEGATIVE); BACTERIA,URINE Rare /HPF (None Seen); BENZODIAZEPINES SCREEN, URINE NEGATIVE (NEGATIVE); COCAINE SCREEN URINE NEGATIVE (NEGATIVE); METHAMPHETAMINES SCREEN, URINE NEGATIVE (NEGATIVE); MUCUS,URINE Few Strands; OPIATE SCREEN, URINE POSITIVE (NEGATIVE); SQUAMOUS EPITHELIAL CELL,UR RARE Squamous (<= Few); THC CANNABINOID SCREEN, URINE POSITIVE (NEGATIVE); TRICYCLIC ANTIDEPRESSANT,URINE NEGATIVE (NEGATIVE)
[2021-02-11 17:17] LABS: BARBITURATE SCREEN,UR NEGATIVE (NEGATIVE); METHADONE SCREEN, URINE NEGATIVE (NEGATIVE); OXYCODONE SCREEN, URINE NEGATIVE (NEGATIVE); PROPOXYPHENE SCREEN, URINE NEGATIVE (NEGATIVE)
--- NOTE | 2021-02-11 17:37 | CT Report ---
PROCEDURE: ANGIO ABDOMEN/PELVIS W INDICATIONS: abd pain CONTRAST: IV CONTRAST: Isovue 300 ml: 100 PO CONTRAST: *NO PO CONTRAST TECHNIQUE: After the administration of intravenous contrast, 2 and 5 mm sections acquired from the diaphragm to the iliac crests. 3-dimensional maximum intensity projection (MIP) coronal and sagittal reformats, a nd/or 3-dimensional volume rendering reformatting was then performed. For radiation dose reduction, the following was used: automated exposure control, adjustment of mA and/or kV according to patient size. COMPARISON: August 20, 2020 FINDINGS: Image quality: Excellent. 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 Lung Bases are clear. Heart size is normal. Liver and spleen are n ormal in size and enhancement. Gallbladder unremarkable. Biliary system is non dilated. Pancreas e nhances normally. No adrenal nodules. Kidneys are normal in size and enhancement, without hydroneph rosis bowel loops show fluid distention with mild bowel wall enhancement. No obstruction. No free flu id or air. No retroperitoneal or mesenteric adenopathy. No ventral hernias. No suspicious bony abn ormalities. No vertebral body compression fractures. Abdominal aorta: Mild atherosclerotic calcification present without evidence of aneurysm or dissecti on Mesenteric arteries: Superior mesenteric and celiac origins and vasculature is widely patent. Renal arteries: Single bilateral renal arteries are both widely patent without evidence of stenosis. IMPRESSION: Unremarkable CT angiogram of the abdominal aorta, celiac and mesenteric vessels. No evidence of aneur ysm or dissection. Fluid distention of the small bowel with wall enhancement may reflect mild ileus or enteritis. No bow el obstruction. Reviewed by: El Infante MD on 02/11/2021 4:36 PM AKDT Approved by: El Infante MD on 02/11/2021 4:36 PM AKDT Station ID: [id number]
[2021-02-11] MEDS ORDERED: POTASSIUM CHLORIDE 20 MEQ TABLET PO STA (17:47)
[2021-02-11 18:16] VITALS: BP 153/106
== END 2021-02-11 18:26 | disposition home or self-care (01) ==
LOC: EDUNIT# → SUPCPDRO 15:59 → ED 15:59
DX: K52.9 Noninfective gastroenteritis and colitis, unspecified (principal); I10 Essential (primary) hypertension; Z66 Do not resuscitate
CPT/HCPCS: 36415; 74174; 80053; 80306; 81001; 83690; 83735; 83880; 84484; 85025; 93005; 96361; 96374; 96375; 99281; 99284; A9270; J1170; J2765; 81003; 87086

== ENCOUNTER 2021-03-27 15:58 | Outpatient (CLI) | payer MEDICARE, OTHER | END 2021-03-27 15:59 | disposition critical access hospital (66) | LOC: EMS 15:58 | DX: Z04.3 Encounter for examination and observation following other accident (principal); M25.551 Pain in right hip | CPT/HCPCS: A0425; A0429 ==

== ENCOUNTER 2021-03-27 16:24 | Emergency (ER) | payer MEDICARE, OTHER ==
[2021-03-27] MEDS ORDERED: MORPHINE 2 MG/ML CARPUJECT IVP STA (16:56)
--- NOTE | 2021-03-27 16:57 | ED Physician Documentation ---
PD HPI LOWER EXT INJURY - Stated complaint Stated Complaint: R HIP/GROIN PX GLF - Chief complaint Chief Complaint: Trauma Ext - History obtained from History obtained from: Patient - History of Present Illness PD HPI LOW EXT INJURY LOCATION: Right (65-year-old woman with history of colonic problems and hypertension, otherwise healthy. She was playing with her dog and slipped and fell directly onto the right hip. She was able to walk and bear weight but with significant pain. No other injuries. Pain at rest is a 3-5. 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 : None HEENT: None Psych: None Musculoskeletal: None Derm: None - Past Surgical History Past Surgical History: No General: Bowel surgery - Present Medications Home Medications: Ambulatory Orders Medication Instructions Recorded Confirmed Metoclopramide [Reglan] 10 mg PO Q6H PRN #20 tablet 02/11/21 03/27/21 Omeprazole Magnesium 20 mg PO PRN PRN 02/11/21 03/27/21 Prochlorperazine Maleate 10 mg PO PRN PRN 02/11/21 03/27/21 HYDROcod/ACETAM 5/325 [[place] 5/325] 1 - 2 tab PO Q6H PRN #20 tablet 03/27/21 Metoprolol Tartrate [Lopressor] 1 tab PO BID 03/27/21 03/27/21 Wheelchair 1 unit TD ONCE #1 03/27/21 - Allergies Allergies/Adverse Reactions: Allergies Allergy/AdvReac Type Severity Reaction Status Date / Time Penicillins Allergy Unknown Verified 03/27/21 16:43 - Social History Does the pt smoke?: No Smoking Status: Former smoker Does the pt drink ETOH?: Yes Does the pt have substance abuse?: No - Immunizations Immunizations are current?: Yes - POLST Patient has POLST: Yes POLST Status: DNR PD ED PE NORMAL - Vitals Vital signs reviewed: Yes - General General: Alert and oriented X 3, No acute distress - HEENT HEENT: PERRL, EOMI - Neck Neck: Supple, no meningeal sign, No bony TTP - Cardiac Cardiac: RRR, No murmur - Respiratory Respiratory: No respiratory distress, Clear bilaterally - Abdomen Abdomen: Normal bowel sounds, Soft, Non tender - Back Back: No CVA TTP, No spinal TTP - Derm Derm: Normal color, Warm and dry - Extremities Extremities: Other (Leg is not shortened. She is not significantly tender over the lateral hip. She does have pain with severe external rotation. She is tender more over the [place] than the hip.) - Neuro Neuro: Alert and oriented X 3, Normal speech Results - Vitals Vitals: Vital Signs - 24 hr 03/27/21 03/27/21 03/27/21 16:30 17:33 18:02 Temperature 36.9 C Heart Rate 86 80 78 Respiratory 16 16 16 Rate Blood Pressure 178/120 H 166/111 H 170/107 H O2 Saturation 97 94 95 03/27/21 18:25 Temperature Heart Rate 81 Respiratory 16 Rate Blood Pressure 149/86 H O2 Saturation 95 Oxygen O2 Source Room air - Rads (name of study) Hip XR Radiology: EMP read contemporaneously (NAD) CT Pelvis Radiology: EMP read contemporaneously (Fractures involving the right inferior pubic ramus, right acetabular anterior column and the right sacral ala) PD MEDICAL DECISION MAKING - ED course ED course: 65-year-old woman presents by ambulance after a fall onto the right hip causing pain. Initial x-ray was negative, but given persistent suspicion followed with a CT showing fractures of the right inferior pubic ramus, right anterior acetabular column and right sacral ala. Case was discussed by phone with Dr. Weiss, he was not on-call but gracious enough to give guidance. [place] that she could be discharged but needs to be nonweightbearing. Patient felt comfortable going home with crutches and a prescription for a wheelchair and pain medication. I offered observation stay given her nonweightbearing status which she declined. Departure - Departure Disposition: 01 Home, Self Care Clinical Impression: Right acetabular fracture Qualifiers: Encounter type: initial encounter Sublocation of acetabulum: anterior column Fracture type: closed Fracture alignment: nondisplaced Qualified Code(s): S32.434A - Nondisplaced fracture of anterior column [iliopubic] of right acetabulum, initial encounter for closed fracture Sacral fracture, closed Qualifiers: Encounter type: initial encounter Zone of sacrum fracture: unspecified portion of sacrum Qualified Code(s): S32.10XA - Unspecified fracture of sacrum, initial encounter for closed fracture Pubic ramus fracture Qualifiers: Encounter type: initial encounter Fracture type: closed Laterality: right Qualified Code(s): S32.591A - Other specified fracture of right pubis, initial encounter for closed fracture Condition: Good Record reviewed to determine appropriate education?: Yes Instructions: ED Fx Pelvis Prescriptions: HYDROcod/ACETAM 5/325 [[place] 5/325] 1 - 2 tab PO Q6H PRN #20 tablet PRN Reason: Pain Wheelchair 1 unit TD ONCE #1
--- NOTE | 2021-03-27 17:31 | XRAY Report ---
PROCEDURE: Hip w/Pelvis 2-3V RT INDICATIONS: hip inj TECHNIQUE: AP pelvis with lateral view(s) of the right hip(s). COMPARISON: None. FINDINGS: Bones: No fractures or dislocations. Pelvic ring appears intact. No suspicious bony lesions. Mild bilateral hip degenerative change. Soft tissues: The visualized bowel gas pattern is normal. No suspicious soft tissue calcifications. IMPRESSION: Mild bilateral hip degenerative change. No evidence acute bony abnormality of the pelvis and right hip. If clinical suspicion and/or symptoms persist, further assessment with repeat plain films or advanced imaging (e.g., CT, MRI, or bone scan) may be helpful for further assessment. Reviewed by: Rafa Segura MD on 03/27/2021 4:29 PM GENA Approved by: Rafa Segura MD on 03/27/2021 4:29 PM GENA Station ID: [id number]
[2021-03-27] MEDS ORDERED: LORazepam 2 MG/ML VIAL IVP STA (17:50)
--- NOTE | 2021-03-27 18:42 | CT Report ---
PROCEDURE: LOWER EXTREMITY WO - RT INDICATIONS: hip injury TECHNIQUE: Noncontrast 3 mm axial sections acquired of the right hip, with coronal and sagittal reformats. COMPARISON: None. FINDINGS: Image quality: Excellent. Bones: Mildly displaced fracture of the right inferior pubic ramus. There is also a minimally displa theresa fracture of the right acetabular anterior column. Minimally displaced fracture of the right sacra l ala. Soft tissues: Grossly unremarkable IMPRESSION: Fractures involving the right inferior pubic ramus, right acetabular anterior column and the right sa cral ala. Reviewed by: Willian Sanchez MD on 03/27/2021 6:40 PM PDT Approved by: Willian Sanchez MD on 03/27/2021 6:40 PM PDT Station ID: [id number]
[2021-03-27] MEDS ORDERED: HYDROcod/ACET 5/325 Prepack 4 PO STA (19:17)
[2021-03-27 19:51] VITALS: BP 165/103
== END 2021-03-27 19:58 | disposition home or self-care (01) ==
LOC: EDUNIT# → ED 16:24 → SUPCPDRO 16:24 → ED 19:58
DX: S32.434A Nondisplaced fracture of anterior column [iliopubic] of right acetabulum, initial encounter for closed fracture (principal); S32.10XA Unspecified fracture of sacrum, initial encounter for closed fracture; S32.591A Other specified fracture of right pubis, initial encounter for closed fracture; W01.0XXA Fall on same level from slipping, tripping and stumbling without subsequent striking against object, initial encounter; Y93.K9 Activity, other involving animal care; Z87.891 Personal history of nicotine dependence; Z66 Do not resuscitate
CPT/HCPCS: 73502; 73700; 96374; 96375; 99283; J2060

== ENCOUNTER 2021-04-12 17:56 | Outpatient (CLI) | payer MEDICARE, OTHER | END 2021-04-12 17:57 | disposition critical access hospital (66) | LOC: EMS 17:56 | DX: R11.10 Vomiting, unspecified (principal); K59.00 Constipation, unspecified | CPT/HCPCS: A0425; A0427 ==

== ENCOUNTER 2021-04-12 18:24 | Emergency (ER) | payer MEDICARE, OTHER ==
[2021-04-12 18:54] LABS: BASOPHILS # (AUTO) 0.1 10^3/uL (0.0-0.1); BASOPHILS % (AUTO) 0.5 %; EOSINOPHILS % (AUTO) 0.1 %; HCT - HEMATOCRIT 46.8 % (37.0-47.0); HGB - HEMOGLOBIN 15.9 g/dL (12.0-16.0); LYMPHOCYTES # (AUTO) 3.5 10^3/uL (1.5-3.5); LYMPHOCYTES % (AUTO) 22.5 %; MEAN CORPUSCULAR HEMOGLOBIN 29.4 pg (27.0-31.0); MEAN CORPUSCULAR VOLUME 86.7 fL (81.0-99.0); MEAN PLATELET VOLUME 10.2 fL (7.9-10.8); MONOCYTES # (AUTO) 0.4 10^3/uL (0.0-1.0); MONOCYTES % (AUTO) 2.6 %; NEUTROPHILS # (AUTO) 11.6 10^3/uL (1.5-6.6); NEUTROPHILS % (AUTO) 73.9 %; PLT - PLATELET COUNT 476 10^3/uL (130-450); RED CELL DISTRIBUTION WIDTH 13.9 % (12.0-15.0); WHITE BLOOD COUNT 15.7 x10^3/uL (4.8-10.8)
[2021-04-12] MEDS: PROCHLORPERAZINE 10 MG/2 ML VIAL IVP STA (18:57)
[2021-04-12] MEDS: HYDROmorphone 1 MG/ML CARPUJECT IVP STA (18:59)
--- NOTE | 2021-04-12 19:01 | ED Physician Documentation ---
History of Present Illness - Stated complaint Stated Complaint: N/V - Chief complaint Chief Complaint: Abd Pain - Additonal information Additional information: 65-year-old female presents the emergency department for evaluation of acute left lower quadrant abdominal pain and vomiting. 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 She also had a ground-level fall on 27 March in which she sustained multiple pelvic fractures. Unfortunately these were nonoperative and she has been managed at home nonweightbearing on the left hip. She reports that because of the history of the colon rupture she is very concerned about constipation and takes MiraLAX daily as well as stool softeners. She felt that her symptoms were getting better and she started to eat a regular diet but developed the pain last night and uncontrolled vomiting today. [place] Phenergan has not helped. She feels weak and dehydrated. No fevers. Denies bloody stools or hematic emesis. Review of Systems Constitutional: denies: Fever, Chills Eyes: reports: Reviewed and negative Ears: reports: Reviewed and negative Nose: reports: Reviewed and negative Throat: reports: Reviewed and negative Cardiac: reports: Reviewed and negative Respiratory: reports: Reviewed and negative GI: reports: Abdominal Pain, Nausea, Vomiting, Constipation. 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 : None HEENT: None Psych: None Musculoskeletal: None Derm: None - Past Surgical History Past Surgical History: No General: Bowel surgery - Present Medications Home Medications: Ambulatory Orders Medication Instructions Recorded Confirmed Metoclopramide [Reglan] 10 mg PO Q6H PRN #20 tablet 02/11/21 03/27/21 Omeprazole Magnesium 20 mg PO PRN PRN 02/11/21 03/27/21 Prochlorperazine Maleate 10 mg PO PRN PRN 02/11/21 03/27/21 HYDROcod/ACETAM 5/325 [[place] 5/325] 1 - 2 tab PO Q6H PRN #20 tablet 03/27/21 Metoprolol Tartrate [Lopressor] 1 tab PO BID 03/27/21 03/27/21 Wheelchair 1 unit TD ONCE #1 03/27/21 - Allergies Allergies/Adverse Reactions: Allergies Allergy/AdvReac Type Severity Reaction Status Date / Time Penicillins Allergy Unknown Verified 04/12/21 18:46 - Social History Does the pt smoke?: No Smoking Status: Former smoker Does the pt drink ETOH?: Yes Does the pt have substance abuse?: No - Immunizations Immunizations are current?: Yes - POLST Patient has POLST: Yes POLST Status: DNR PD ED PE EXPANDED - General General: Alert, In Pain - Neck Neck: Supple w/out meningeal sx, Other - Cardiac Cardiac: Regular Rate, Radial strong equal, Cap refill < 2 sec. No: Murmur Present - Respiratory Respiratory: Clear to ausultation stephan. No: Distress, Labored - Abdomen Abdomen: Normal Bowel sounds, Tender to palpation (Tenderness to the left lower quadrant without guarding or rebound.) - Back Back: Normal exam, CVA TTP right - Derm Derm: Normal color, Warm and dry - Extremities Extremities: Normal, Other (Tenderness palpation left iliac crest.). No: Deformity, Tenderness - Neuro Neuro: Alert and Oriented X 3, CNII-XII intact - GCS Eye Opening: Spontaneous Motor: Obeys Commands Verbal: Oriented Total: 15 Results - Vitals Vitals: Vital Signs - 24 hr 04/12/21 04/12/21 18:32 20:45 Temperature 37.2 C 37.0 C Heart Rate 94 84 Respiratory 18 12 Rate Blood Pressure 169/143 H 131/94 H O2 Saturation 100 98 Oxygen O2 Source Room air - Labs Labs: Laboratory Tests 04/12/21 04/12/21 04/12/21 18:47 18:47 18:47 WBC 15.7 H RBC 5.40 Hgb 15.9 Hct 46.8 MCV 86.7 MCH 29.4 MCHC 34.0 RDW 13.9 Plt Count 476 H MPV 10.2 Neut # (Auto) 11.6 H Lymph # (Auto) 3.5 [place] # (Auto) 0.4 Eos # (Auto) 0.0 Baso # (Auto) 0.1 Absolute Nucleated RBC 0.00 Nucleated RBC % 0.0 Sodium 135 Potassium 3.4 L Chloride 91 L Carbon Dioxide 20 L Anion Gap 24.0 H BUN 21 H Creatinine 0.9 Estimated GFR (MDRD) 62 L Glucose 139 H Lactic Acid 1.8 Calcium 9.6 Total Bilirubin 1.3 H AST 26 ALT 19 Alkaline Phosphatase 229 H Total Protein 8.5 H Albumin 5.1 Globulin 3.4 Albumin/Globulin Ratio 1.5 Lipase 26 - Rads (name of study) CT abd Radiology: Final report received (Interval development of moderate fecal material noted within the distal transverse colon through the rectum which may be related to delayed transit/constipation. Status post surgical changes from prior hemicolectomy. No evidence for obstruction. Noted previously known development of the pelvic fr) PD MEDICAL DECISION MAKING - ED course Complexity details: reviewed results, re-evaluated patient, d/w patient ED course: 65-year-old female presents to the emergency department for evaluation of acute left lower quadrant abdominal pain and vomiting. She has a history of a previous bowel perforation status post hemicolectomy and reversal of that. She recently had a fall and developed a pelvic fracture for which she has been taking narcotics to help with the pain. She has been taking MiraLAX twice daily but despite this feels like she is likely constipated. Screening labs do show a moderate leukocytosis but this does seem to be at her baseline. Her lactate is not elevated. Screening electrolytes also show a mild hypokalemia as well as an elevated alk phos. CT of the abdomen is consistent with moderate fecal impaction of the transverse and a sending colon. No findings consistent with obstruction. I discussed the findings with the patient. She is stable for discharge home I have recommended magnesium citrate as well as increased doses of MiraLAX at home. She was also given a fleets to self administer at home. Patient is to return to the ER for worsening symptoms, fevers uncontrolled vomiting. Here in the ER we got good control of her symptoms following 1 mg of Dilaudid as well as Zofran. She has appropriate antiemetics at home. Departure - Departure Disposition: 01 Home, Self Care Clinical Impression: Constipation by delayed colonic transit Condition: Stable Record reviewed to determine appropriate education?: Yes Instructions: ED Constipation Follow-Up: Yisel Nunes ARNP [Primary Care Provider] - Comments: Claribel you are seen in the ER today for left lower abdominal pain and vomiting. As we discussed at the bedside you do have significant constipation on your CAT scan. You have probably developed this because you have been taking narcotics for your pelvic fracture. At this time however there is no findings that suggest a bowel perforation or obstruction. I would like you to take the magnesium citrate at home. This typically produces a large and rapid bowel movement within a few hours of taking it. I do recommend that you remain close to a toilet or commode after taking it. You can also increase your MiraLAX to twice daily administration while you are on the narcotics. You should have 2-3 bowel movements a day until you feel less constipated. If at any point despite the enema, the magnesium citrate or the MiraLAX you are having increased pain or uncontrolled vomiting or you develop any fevers please return immediately to the ER for a second look.
[2021-04-12] MEDS: SODIUM CHLORIDE 0.9% 1,000 ML IV STA (19:02)
[2021-04-12 19:07] LABS: ALBUMIN 5.1 g/dL (3.2-5.5); ALBUMIN/GLOBULIN RATIO 1.5 (1.0-2.2); BILIRUBIN,TOTAL 1.3 mg/dL (0.2-1.0); CALCIUM 9.6 mg/dL (8.5-10.3); CREATININE 0.9 mg/dL (0.4-1.0); POTASSIUM 3.4 mmol/L (3.5-5.0); TOTAL PROTEIN 8.5 g/dL (6.7-8.2)
[2021-04-12] MEDS ORDERED: IOVERSOL 320 100 ML VIAL IVP ONE (19:13)
[2021-04-12] MEDS: LORazepam 2 MG/ML VIAL IVP STA (19:22)
[2021-04-12] MEDS: IOVERSOL 320 100 ML VIAL IVP ONE (19:55)
--- NOTE | 2021-04-12 20:59 | CT Report ---
PROCEDURE: Abdomen/Pelvis W INDICATIONS: LLQ abd pain; vomiting CONTRAST: IV CONTRAST: Optiray 320 ml: 100 PO CONTRAST: *NO PO CONTRAST TECHNIQUE: After the administration of weight appropriate dose of intravenous contrast, 5 mm thick sections acqu ired from the diaphragms to the symphysis. 5 mm thick coronal and sagittal reformats were acquired. For radiation dose reduction, the following was used: automated exposure control, adjustment of mA and/or kV according to patient size. COMPARISON: CT angiogram of the abdomen and pelvis dated 02/11/2021 FINDINGS: Image quality: Excellent. ABDOMEN: Lung bases: Lung bases are clear. Heart size is normal. Solid organs: Liver and spleen are normal in size and enhancement. Gallbladder is unremarkable. Bi liary system is non dilated. Pancreas enhances normally. No adrenal nodules. Kidneys demonstrate n ormal size and enhancement, without hydronephrosis. Peritoneum and bowel: Stable postsurgical changes near the ascending colon as well as the rectosigmo id junction likely from partial colectomy. Interval development of significant fecal material seen in the distal transverse colon extending through the rectum. There is a short segment of minimal circum ferential wall thickening near the splenic flexure. No significant pericolonic inflammatory stranding . Remaining bowel loops demonstrate normal wall thickness and caliber. No free fluid or air. Nodes and vessels: No retroperitoneal or mesenteric adenopathy by size criteria. Aorta and inferior vena cava are normal in size. Scattered atherosclerotic calcifications of the abdominal aorta withou t aneurysmal dilatation. Miscellaneous: No ventral hernias. PELVIS: Genitourinary: Bladder wall thickness is normal. Miscellaneous: No inguinal hernias or adenopathy. Bones: No suspicious bony lesions. No acute vertebral body compression fractures. Interval develop ment of acute, mildly comminuted fracture involving the right inferior pubic ramus as well as the bas e of the right superior pubic ramus just anterior to the right anterior acetabulum. There is new trell ical buckling involving the base of the left superior pubic ramus just anterior to the anterior left acetabular wall. IMPRESSION: 1. Interval development of moderate fecal material noted within the distal transverse colon through t he rectum which may be related to delayed transit/constipation. Stable post surgical changes from carlos or hemicolectomy. No evidence for obstruction. 2. Interval development of acute fractures involving the right superior and inferior pubic ramus as w ell as the base of the left superior pubic ramus as described above. Recommend correlation for histor y of recent trauma since most recent examination dated 02/11/2021. 3. Short segment of minimal circumferential wall thickening and possible pericolonic inflammation at the splenic flexure which may be related to nonspecific colitis either inflammatory or infectious in etiology. Findings were discussed with Nabila Vargas at 1855 hrs. Reviewed by: Ray Barker MD on 04/12/2021 8:58 PM PDT Approved by: Ray Barker MD on 04/12/2021 8:58 PM PDT Station ID: [id number]
[2021-04-12] MEDS: SALINE ENEMA 133 ML BOTTLE RC STA (22:03)
[2021-04-12] MEDS: MAGNESIUM CITRATE 296 ML BOTTLE PO STA (22:03)
[2021-04-12 22:17] VITALS: BP 121/94
== END 2021-04-12 22:17 | disposition home or self-care (01) ==
LOC: EDUNIT# → SUPCPDRO 18:24 → ED 18:24
DX: K59.01 Slow transit constipation (principal); R11.2 Nausea with vomiting, unspecified; E87.6 Hypokalemia; Z87.19 Personal history of other diseases of the digestive system; Z90.49 Acquired absence of other specified parts of digestive tract; S32.512D Fracture of superior rim of left pubis, subsequent encounter for fracture with routine healing; S32.511D Fracture of superior rim of right pubis, subsequent encounter for fracture with routine healing; S32.591D Other specified fracture of right pubis, subsequent encounter for fracture with routine healing; X58.XXXD Exposure to other specified factors, subsequent encounter; Z79.891 Long term (current) use of opiate analgesic; I10 Essential (primary) hypertension; Z87.891 Personal history of nicotine dependence
CPT/HCPCS: 36415; 74177; 80053; 83605; 83690; 85025; 96374; 96375; 99284; A9270; J1170; J2060; Q9967

== ENCOUNTER 2021-04-19 13:00 | Outpatient (CLI) | payer MEDICARE, OTHER ==
--- NOTE | 2021-04-19 15:46 | XRAY Report ---
PROCEDURE: Hip w/Pelvis 1V RT INDICATIONS: FX OF R PUBIS TECHNIQUE: AP pelvis with lateral view(s) of the bilateral hip(s). COMPARISON: CT abdomen/pelvis 04/12/[address] lower extremity right 03/27/2021. Plain film imaging p keny with hip 03/27/2021.. FINDINGS: Bones: No fractures or dislocations. Pelvic ring appears unchanged except for continued healing of a inferior obturator ring fracture at the right hemipelvis.. No suspicious bony lesions. Soft tissues: The visualized bowel gas pattern is normal. No suspicious soft tissue calcifications. IMPRESSION: Continued healing of the inferior obturator ring on the right, no new injury is identifi ed. Hip fracture does not appear present. Reviewed by: Que London MD on 04/19/2021 3:44 PM PDT Approved by: Que London MD on 04/19/2021 3:44 PM PDT Station ID: [id number]
== END 2021-04-19 23:59 | disposition home or self-care (01) ==
LOC: DI.N 13:00
PROVIDERS: ATTEND Orthopaedic Surgery
DX: S32.89XD Fracture of other parts of pelvis, subsequent encounter for fracture with routine healing (principal)

== ENCOUNTER 2021-05-16 11:00 | Outpatient (CLI) | payer MEDICARE, OTHER ==
--- NOTE | 2021-05-16 12:33 | XRAY Report ---
PROCEDURE: Hip w/Pelvis 1V RT INDICATIONS: FX OF R PUBIS TECHNIQUE: AP pelvis with lateral view(s) of the right hip(s). COMPARISON: 04/19/2021. FINDINGS: Bones: There is callus formation at patient's known right inferior pubic ramus fracture site. No new fracture or dislocation is seen. Symmetric appearing mild bilateral hip joint osteoarthritic changes are seen. No evidence of avascular necrosis of femoral head. Pelvic ring appears intact. No suspicio us bony lesions. Soft tissues: The visualized bowel gas pattern is normal. No suspicious soft tissue calcifications. Postsurgical changes are seen in bilateral lower pelvis. IMPRESSION: Healing right inferior pubic ramus fracture. No gross new fracture or dislocation. Reviewed by: Elton Mojica MD on 05/16/2021 12:32 PM PDT Approved by: Elton Mojica MD on 05/16/2021 12:32 PM PDT Station ID: [id number]
== END 2021-05-16 23:59 | disposition home or self-care (01) ==
LOC: DI.N 11:00
PROVIDERS: ATTEND Orthopaedic Surgery
DX: S32.591A Other specified fracture of right pubis, initial encounter for closed fracture (principal)

== ENCOUNTER 2021-07-22 13:10 | Emergency (ER) | payer MEDICARE, OTHER ==
[2021-07-22 14:06] LABS: BASOPHILS # (AUTO) 0.1 10^3/uL (0.0-0.1); BASOPHILS % (AUTO) 0.4 %; EOSINOPHILS # (AUTO) 0.1 10^3/uL (0.0-0.7); EOSINOPHILS % (AUTO) 0.2 %; HCT - HEMATOCRIT 55.2 % (37.0-47.0); HGB - HEMOGLOBIN 17.9 g/dL (12.0-16.0); LYMPHOCYTES # (AUTO) 6.5 10^3/uL (1.5-3.5); LYMPHOCYTES % (AUTO) 27.1 %; MEAN CORPUSCULAR HEMOGLOBIN 28.7 pg (27.0-31.0); MEAN CORPUSCULAR HGB CONC 32.4 g/dL (32.0-36.0); MEAN CORPUSCULAR VOLUME 88.6 fL (81.0-99.0); MONOCYTES # (AUTO) 0.7 10^3/uL (0.0-1.0); MONOCYTES % (AUTO) 3.1 %; NEUTROPHILS # (AUTO) 16.2 10^3/uL (1.5-6.6); NEUTROPHILS % (AUTO) 68.3 %; PLT - PLATELET COUNT 296 10^3/uL (130-450); RED BLOOD COUNT 6.23 10^6/uL (4.20-5.40); RED CELL DISTRIBUTION WIDTH 14.8 % (12.0-15.0); WHITE BLOOD COUNT 23.8 x10^3/uL (4.8-10.8)
[2021-07-22 14:19] LABS: ALBUMIN 6.1 g/dL (3.2-5.5); ALBUMIN/GLOBULIN RATIO 1.6 (1.0-2.2); BILIRUBIN,TOTAL 1.1 mg/dL (0.2-1.0); CALCIUM 10.5 mg/dL (8.5-10.3); CREATININE 1.3 mg/dL (0.4-1.0); POTASSIUM 3.3 mmol/L (3.5-5.0); TOTAL PROTEIN 9.8 g/dL (6.7-8.2)
[2021-07-22 15:07] LABS: PLATELET ESTIMATE, MANUAL NORMAL (130-450,000) (NORMAL); PLATELET MORPHOLOGY NORMAL APPEARANCE (NORMAL); RBC MORPHOLOGY (MULTIPLE) NORMAL APPEARANCE (NORMAL); SLIDE REVIEW? Indicated
[2021-07-22] MEDS ORDERED: PROMETHAZINE INJ 12.5 MG in SODIUM CHLORIDE 0.9% 50 ML IV STA ×2 (15:21→21:40)
[2021-07-22] MEDS ORDERED: SODIUM CHLORIDE 0.9% 1,000 ML IV STA ×2 (15:21→16:11)
--- NOTE | 2021-07-22 15:23 | ED Physician Documentation ---
History of Present Illness - Stated complaint Stated Complaint: VOMITING,ABD PX,HIGH BP, - Chief complaint Chief Complaint: Abd Pain - History obtained from History obtained from: Patient - Additonal information Additional information: 58-year-old female with past medical history of colonic rupture requiring several colostomies with reversal who presents with acute on chronic nausea and vomiting. The patient has had about 3 years of nausea and vomiting since her surgery but typically manageable At home however over the course the last day or 2 she has had increasing nausea and dry heaving and states she feels different than she typically does, stating "something is not right." She not vomiting much up but has not been taking much p.o. She not had focal abdominal pain, But has a general abdominal soreness and some mild left lower quadrant abdominal pain though that is chronic. She has not had any fever or chills to her knowledge, no chest pain or dyspnea, no cough or cold symptoms, no diarrhea or constipation, no urinary symptoms. She does smoke marijuana occasionally though this is quite infrequent and has no history of cannabis induced hyperemesis or cyclic vomiting syndrome. Pt normally on metoprolol 100mg BID for hypertension and has not been able to keep down for past 2 days. Review of Systems Constitutional: reports: Reviewed and negative Eyes: reports: Reviewed and negative Ears: reports: Reviewed and negative Throat: reports: Reviewed and negative Cardiac: reports: Reviewed and negative Respiratory: reports: Reviewed and negative GI: reports: Abdominal Pain (mild, generalized), Nausea, Vomiting. 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 : None HEENT: None Psych: None Musculoskeletal: None Derm: None - Past Surgical History Past Surgical History: No General: Bowel surgery - Present Medications Home Medications: Ambulatory Orders Medication Instructions Recorded Confirmed Metoclopramide [Reglan] 10 mg PO Q6H PRN #20 tablet 02/11/21 03/27/21 Omeprazole Magnesium 20 mg PO PRN PRN 02/11/21 03/27/21 Prochlorperazine Maleate 10 mg PO PRN PRN 02/11/21 03/27/21 HYDROcod/ACETAM 5/325 [[place] 5/325] 1 - 2 tab PO Q6H PRN #20 tablet 03/27/21 Metoprolol Tartrate [Lopressor] 1 tab PO BID 03/27/21 03/27/21 Wheelchair 1 unit TD ONCE #1 03/27/21 - Allergies Allergies/Adverse Reactions: Allergies Allergy/AdvReac Type Severity Reaction Status Date / Time Penicillins Allergy Unknown Verified 04/12/21 18:46 - Social History Does the pt smoke?: No Smoking Status: Former smoker Does the pt drink ETOH?: Yes Does the pt have substance abuse?: No - Immunizations Immunizations are current?: Yes - POLST Patient has POLST: Yes POLST Status: DNR PD ED PE NORMAL - Vitals Vital signs reviewed: Yes - General General: Alert and oriented X 3, No acute distress, Well developed/nourished Results - Vitals Vitals: Vital Signs - 24 hr 07/22/21 07/22/21 07/22/21 13:39 15:47 18:03 Temperature 36.7 C 37.0 C Heart Rate 147 H 112 H 81 Respiratory 22 18 23 Rate Blood Pressure 193/135 H 163/123 H 177/116 H O2 Saturation 100 97 98 07/22/21 07/22/21 07/22/21 19:44 19:46 19:57 Temperature Heart Rate 91 Respiratory 16 17 Rate Blood Pressure 184/127 H 203/114 H 190/113 H O2 Saturation 96 96 07/22/21 07/22/21 19:58 20:24 Temperature Heart Rate Respiratory Rate Blood Pressure 173/116 H 166/105 H O2 Saturation Oxygen O2 Source Room air - Labs Labs: Laboratory Tests 07/22/21 07/22/21 07/22/21 14:00 14:00 15:32 WBC 23.8 H RBC 6.23 H Hgb 17.9 H Hct 55.2 H MCV 88.6 MCH 28.7 MCHC 32.4 RDW 14.8 Plt Count 296 MPV 11.0 H Neut # (Auto) 16.2 H Lymph # (Auto) 6.5 H [place] # (Auto) 0.7 Eos # (Auto) 0.1 Baso # (Auto) 0.1 Absolute Nucleated RBC 0.00 Nucleated RBC % 0.0 Manual Slide Review Indicated Platelet Estimate NORMAL (130-450,000) Platelet Morphology NORMAL APPEARANCE RBC Morph Micro Appear NORMAL APPEARANCE Sodium 133 L Potassium 3.3 L Chloride 89 L Carbon Dioxide 22 Anion Gap 22.0 H BUN 27 H Creatinine 1.3 H Estimated GFR (MDRD) 41 L Glucose 204 H Lactic Acid Calcium 10.5 H Total Bilirubin 1.1 H AST 45 H ALT 29 Alkaline Phosphatase 111 Total Protein 9.8 H Albumin 6.1 H Globulin 3.7 Albumin/Globulin Ratio 1.6 Lipase 45 Urine Color YELLOW Urine Clarity CLEAR Urine pH 5.5 Ur Specific [place] >=1.030 H Urine Protein 100 H Urine Glucose (UA) NEGATIVE Urine Ketones NEGATIVE Urine Occult Blood MODERATE H Urine Nitrite NEGATIVE Urine Bilirubin NEGATIVE Urine Urobilinogen 0.2 (NORMAL) Ur Leukocyte Esterase NEGATIVE Urine RBC 6-10 H Urine WBC 4-5 Ur Squamous Epith Cells FEW Squamous Urine Bacteria Rare Urine Casts 26-50 Hyaline Casts Ur Microscopic Review INDICATED Urine Culture Comments NOT INDICATED 07/22/21 15:34 WBC RBC Hgb Hct MCV MCH MCHC RDW Plt Count MPV Neut # (Auto) Lymph # (Auto) [place] # (Auto) Eos # (Auto) Baso # (Auto) Absolute Nucleated RBC Nucleated RBC % Manual Slide Review Platelet Estimate Platelet Morphology RBC Morph Micro Appear Sodium Potassium Chloride Carbon Dioxide Anion Gap BUN Creatinine Estimated GFR (MDRD) Glucose Lactic Acid 2.6 H Calcium Total Bilirubin AST ALT Alkaline Phosphatase Total Protein Albumin Globulin Albumin/Globulin Ratio Lipase Urine Color Urine Clarity Urine pH Ur Specific [place] Urine Protein Urine Glucose (UA) Urine Ketones Urine Occult Blood Urine Nitrite Urine Bilirubin Urine Urobilinogen Ur Leukocyte Esterase Urine RBC Urine WBC Ur Squamous Epith Cells Urine Bacteria Urine Casts Ur Microscopic Review Urine Culture Comments PD MEDICAL DECISION MAKING - ED course Complexity details: reviewed old records, reviewed results, re-evaluated patient, considered differential, d/w patient, d/w performance improvement consultant ED course: This is a 66-year-old female who presented with nausea and vomiting and generalized abdominal pain. She was tachycardic on arrival with a heart rate in the 140s, however afebrile. We did obtain a septic work-up which is significant for a white blood cell count of 23.8, Sodium of 133, potassium is 3.3, anion gap of 22, BUN of 27, creatinine of 1.3, lactic acid of 2.6 and total bili of 1.1. Urinalysis is negative for infection, small amount of blood. She was given a liter of normal saline And antiemetics but declined pain medication. I also gave her 5 of IV metoprolol as she had missed her oral metoprolol likely contributing to her tachycardia. I also gave her 10 mg of IV hydralazine for persistently elevated blood pressure. We proceeded with a CT of her abdomen and pelvis and this showed concern for possible cholecystitis but recommended right upper quadrant ultrasound. Right upper quadrant ultrasound shows some sludge as well as a mobile stone And pericholecystic fluid. I did consult a surgeon here Dr. Garzon who evaluated the patient. The patient really has no right upper quadrant pain or any significant abdominal pain at this time and has not received any pain medication. He felt it was unlikely that she had cholecystitis in the absence of a Positive Stevens sign. He recommended the patient receive a HIDA scan. As we do not do HIDA scans here, we are working on potential transfer or patient or transfer for HIDA scan only and patient then would return here Post scan as beds are extremely limited in the region. I have started on cefepime and Flagyl for possible Cholecystitis or other abdominal infection--pt has to allergy to amoxicillin. We will continue antibiotics, as needed antiemetics and IV fluids overnight, patient will remain n.p.o. Replace potassium with IV potassium. We will repeat labs in the morning.
[2021-07-22] MEDS ORDERED: IOVERSOL 320 100 ML VIAL IVP ONE ×2 (15:30→16:40)
[2021-07-22] MEDS ORDERED: LORazepam 2 MG/ML VIAL IVP STA (16:11)
[2021-07-22] MEDS ORDERED: metroNIDAZOLE 500 MG/100 ML 500 MG/100 ML BAG IV STA (16:20)
[2021-07-22] MEDS ORDERED: CEFEPIME 2 GM in SODIUM CHLORIDE 0.9% MINIBAG 100 ML IV STA (16:20)
[2021-07-22] MEDS ORDERED: METOPROLOL 5 MG/5 ML VIAL IVP STA (16:20)
[2021-07-22 16:40] LABS: GLUCOSE, URINE (UA) NEGATIVE (NEGATIVE); KETONES,URINE (UA) NEGATIVE (NEGATIVE); LEUKOCYTE ESTERASE, URINE NEGATIVE (NEGATIVE); NITRITE,URINE NEGATIVE (NEGATIVE); OCCULT BLOOD,URINE MODERATE (NEGATIVE); PH,URINE 5.5 PH (5.0-7.5); PROTEIN,URINE 100 mg/dL (NEGATIVE); UROBILINOGEN,URINE 0.2 (NORMAL) E.U./dL (NORMAL)
[2021-07-22 16:53] LABS: BACTERIA,URINE Rare /HPF (None Seen); BILIRUBIN,URINE NEGATIVE (NEGATIVE); CLARITY,URINE CLEAR (CLEAR); ICTOTEST,URINE NEGATIVE; SQUAMOUS EPITHELIAL CELL,UR FEW Squamous (<= Few)
[2021-07-22 16:54] LABS: CASTS, URINE 26-50 Hyaline Casts /LPF
--- NOTE | 2021-07-22 17:33 | CT Report ---
PROCEDURE: Abdomen/Pelvis W INDICATIONS: pain, leukocytosis CONTRAST: IV CONTRAST: Optiray 320 ml: *NO PO CONTRAST TECHNIQUE: After the administration of IV contrast, 5 mm thick sections acquired from the diaphragms to the symp hysis. 5 mm thick coronal and sagittal reformats were acquired. For radiation dose reduction, the f ollowing was used: automated exposure control, adjustment of mA and/or kV according to patient size. COMPARISON: April 12, 2021. FINDINGS: Inferior chest: No focal consolidation, pleural effusion, or pneumothorax. No cardiomegaly or perica rdial effusion. Gallbladder: Hydropic appearance of the gallbladder with pericholecystic fluid. No wall thickening o r gallstones are appreciated. Biliary tree: No intra-or extrahepatic biliary ductal dilatation. Liver: The liver demonstrates normal enhancement, size, and contour. Spleen: Normal enhancement, size and morphology is seen. Pancreas: Normal morphology without masses or inflammatory changes. Adrenals: Normal size without masses. Kidneys/ureters: Normal size and morphology. No solid masses or hydronephrosis. 7.1 mm hypoattenuatin g lesion in the left upper pole, compatible with a cyst. Vasculature: No evidence of aneurysm or other significant vascular pathology. Calcified atheromatous change of the aorta. Lymphatic system: No pathologic enlargement by size criteria. GI/mesentery: No evidence of intestinal obstruction. Suture material in the sigmoid colon and right l ower quadrant. Peritoneum/Retroperitoneum: No free intraperitoneal gas or large collection. Urinary bladder: The urinary bladder is distended with a smooth thin wall. Pelvic organs: No significant abnormality. Bones/soft tissues: Healing fracture deformities of the right superior acetabulum and ischium. Sclerosis in the right aspect of the sacrum, which may reflect insufficiency fracture. Bilateral dorsal fat-containing hernias are seen (i.e. series 3, image 27). IMPRESSION: 1.Hydropic appearance of the gallbladder with pericholecystic fluid, which is nonspecific but can be a sign of acute cholecystitis. Consider correlation right upper quadrant ultrasound. 2.Sclerosis of the right sacrum, which may reflect insufficiency fracture. 3.Bilateral fat-containing spigelian hernias. Reviewed by: Derrick Martinez MD on 07/22/2021 5:31 PM PDT Approved by: Derrick Martinez MD on 07/22/2021 5:31 PM PDT Station ID: [id number]
[2021-07-22] MEDS ORDERED: hydrALAZINE INJ 20 MG/ML VIAL IVP STA (19:48)
--- NOTE | 2021-07-22 20:14 | Ultrasound Report ---
PROCEDURE: Abdomen Complete INDICATIONS: ? cholecystitis on CT, sepsis TECHNIQUE: Real-time scanning was performed of the abdominal and retroperitoneal organs, with image documentatio n. COMPARISON: None. FINDINGS: Liver: No hepatic mass. The liver has increased echogenicity consistent with steatosis. An 8 mm echog enic focus in the left lobe of the liver is likely a hemangioma. Gallbladder: The gallbladder demonstrates sludge and stones with one small mobile stone seen. The gal lbladder wall measures 5.8 mm. There is a small amount of pericholecystic fluid. Biliary ducts: Intrahepatic bile ducts are non-dilated. Extrahepatic bile duct caliber measures 5.2 mm. Normal is 6-7 mm or less in diameter, or 10 mm or less post-cholecystectomy. Pancreas: Visualized portions of the pancreas are sonographically normal. Spleen: Spleen is normal in size and homogeneous in echotexture. Kidneys: Kidneys are normal in size and echotexture. Right kidney measures 10.5 cm long; left kidne y measures 10.3 cm long. No hydronephrosis or nephrolithiasis. No solid masses. There is a stone i n the right midpole measuring 5 mm. Aorta: Visualized aorta is normal in caliber at less than 3 cm. Iliacs: Proximal common iliac arteries are normal in caliber at less than 2.5 cm. IVC: Intrahepatic inferior vena cava is patent. Miscellaneous: No free abdominal fluid. IMPRESSION: The gallbladder contains sludge and a small mobile stone. There is gallbladder wall thickening and a small amount of pericholecystic fluid. Findings are suggestive of acute cholecystitis. Reviewed by: Graeme Nieves on 07/22/2021 8:12 PM PDT Approved by: Graeme Nieves on 07/22/2021 8:12 PM PDT Station ID: [id number]
--- NOTE | 2021-07-22 21:19 | CONSULTATION NOTE ---
Surgery Consult - Home Meds/Allergies Home Medications: Patient History Medication Instructions Recorded Confirmed Omeprazole Magnesium 20 mg PO PRN PRN 02/11/21 03/27/21 Prochlorperazine Maleate 10 mg PO PRN PRN 02/11/21 03/27/21 Metoprolol Tartrate [Lopressor] 1 tab PO BID 03/27/21 03/27/21 Allergies/Adverse Reactions: Allergies Allergy/AdvReac Type Severity Reaction Status Date / Time Penicillins Allergy Unknown Verified 04/12/21 18:46 - Vital Signs Vital Signs: Last Vital Signs Temp 37.0 C 07/22/21 18:03 Pulse 91 07/22/21 19:44 Resp 17 07/22/21 19:57 BP 166/105 H 07/22/21 20:24 Pulse Ox 96 07/22/21 19:57 Intake & Output: Intake & Output 07/19/21 07/20/21 07/21/21 07/22/21 23:59 23:59 23:59 23:59 Intake Total 2250.5 Balance 2250.5 - Lab Results Result Diagrams: 07/22/21 14:00 07/22/21 14:00 - Consultation Note Consultation Note: A/p 1. Could possibly have early acute cholecystitis but the exam is absolutely inconsistent. Would advise HIDA for further evaluation. 2. HTN and dehydration with ALVIN per ER. Would continue with medical management. 3. Incidental finding of bilateral spegelian hernia to be worked up/referred as outpatient per patient. 4. D/w patient and the ER provider CC: n/v HPI 66yo female acute on chronic nausea and vomiting. Has been on going for less than a week. Denies any specific pain except LLQ. Watson N/V/fever or chills. She has chronic "bloating" prior prior colectomy/colostomy takedown. In the ER she underwent CT which showed distended gallbladder with mild wall thickening. There was also RUQ US for this that showed some sludge and mobile stone with minimal fluid and thickening. There was no pain/Stevens. She has not needed any pain medication in the ER and is hungry/thirsty. PMH- reviewed PSH reviewed HPI reviewed and otherwise 11 point NEG Allergy -PCN PE/ AOx3 NAD Thin Resp - non labored, symmetric Abd - no rebound or guarding, STEVENS absent, no mass, slight distension LLQ but without tenderness Ext - WWP
[2021-07-22] MEDS ORDERED: ONDANSETRON 4 MG/2 ML VIAL IVP PRN (21:39)
[2021-07-22] MEDS ORDERED: hydrALAZINE INJ 20 MG/ML VIAL IVP PRN (21:43)
[2021-07-22] MEDS ORDERED: POTASSIUM CHLOR 10 MEQ/100 ML 10 MEQ/100 ML BAG IV STA (21:52)
[2021-07-22] MEDS ORDERED: PROMETHAZINE 25 MG/1 ML VIAL ONE (22:06)
[2021-07-22] MEDS: SODIUM CHLORIDE 0.9% 1,000 ML IV SCH (22:30)
[2021-07-22] MEDS: metroNIDAZOLE 500 MG/100 ML 500 MG/100 ML BAG IV SCH (23:06)
[2021-07-23] MEDS ORDERED: METOCLOPRAMIDE 10 MG/2 ML VIAL IVP STA (00:38)
[2021-07-23] MEDS ORDERED: METOPROLOL TARTRATE 50 MG TABLET PO STA (00:39)
[2021-07-23 03:08] LABS: BASOPHILS % (AUTO) 0.5 %; HCT - HEMATOCRIT 45.2 % (37.0-47.0); HGB - HEMOGLOBIN 14.8 g/dL (12.0-16.0); LYMPHOCYTES % (AUTO) 26.4 %; MEAN CORPUSCULAR HEMOGLOBIN 28.8 pg (27.0-31.0); MEAN CORPUSCULAR HGB CONC 32.7 g/dL (32.0-36.0); MEAN CORPUSCULAR VOLUME 87.9 fL (81.0-99.0); MEAN PLATELET VOLUME 10.7 fL (7.9-10.8); MONOCYTES % (AUTO) 5.5 %; NEUTROPHILS % (AUTO) 66.8 %; PLT - PLATELET COUNT 258 10^3/uL (130-450); RED BLOOD COUNT 5.14 10^6/uL (4.20-5.40); RED CELL DISTRIBUTION WIDTH 14.6 % (12.0-15.0); WHITE BLOOD COUNT 21.3 x10^3/uL (4.8-10.8)
[2021-07-23 03:17] LABS: BAND NEUTROPHILS % (MANUAL) 0 %
[2021-07-23 03:19] LABS: ALBUMIN 4.5 g/dL (3.2-5.5); ALBUMIN/GLOBULIN RATIO 1.7 (1.0-2.2); BILIRUBIN,TOTAL 0.8 mg/dL (0.2-1.0); CALCIUM 8.5 mg/dL (8.5-10.3); CREATININE 0.6 mg/dL (0.4-1.0); POTASSIUM 3.1 mmol/L (3.5-5.0); TOTAL PROTEIN 7.2 g/dL (6.7-8.2)
[2021-07-23 03:22] LABS: ABNORMAL LYMPHS % (MANUAL) 2 %; DIFFERENTIAL COMMENT MANUAL DIFFERENTIAL; LYMPHOCYTES # (MANUAL) 5.8 10^3/uL (1.5-3.5); LYMPHOCYTES % (MANUAL) 25 %; MONOCYTES # (MANUAL) 0.2 10^3/uL (0.0-1.0); NEUTROPHILS # (MANUAL) 15.3 10^3/uL (1.5-6.6); PLATELET ESTIMATE, MANUAL NORMAL (130-450,000) (NORMAL); PLATELET MORPHOLOGY NORMAL APPEARANCE (NORMAL); RBC MORPHOLOGY (MULTIPLE) NORMAL APPEARANCE (NORMAL); WBC MORPHOLOGY (MULTIPLE) NORMAL APPEARANCE (NORMAL)
[2021-07-23] MEDS: SODIUM CHLORIDE 0.9% 1,000 ML IV SCH (06:06)
[2021-07-23] MEDS: metroNIDAZOLE 500 MG/100 ML 500 MG/100 ML BAG IV SCH (06:07)
[2021-07-23 11:44] LABS: BASOPHILS % (AUTO) 0.5 %; EOSINOPHILS % (AUTO) 0.2 %; HCT - HEMATOCRIT 46.2 % (37.0-47.0); LYMPHOCYTES % (AUTO) 32.5 %; MEAN CORPUSCULAR HEMOGLOBIN 28.8 pg (27.0-31.0); MEAN CORPUSCULAR HGB CONC 32.5 g/dL (32.0-36.0); MEAN CORPUSCULAR VOLUME 88.8 fL (81.0-99.0); MEAN PLATELET VOLUME 10.8 fL (7.9-10.8); MONOCYTES % (AUTO) 6.5 %; NEUTROPHILS % (AUTO) 59.6 %; PLT - PLATELET COUNT 254 10^3/uL (130-450); RED CELL DISTRIBUTION WIDTH 14.8 % (12.0-15.0); WHITE BLOOD COUNT 19.1 x10^3/uL (4.8-10.8)
[2021-07-23 11:47] LABS: ABNORMAL LYMPHS % (MANUAL) 0 %; BAND NEUTROPHILS % (MANUAL) 0 %
[2021-07-23 12:13] LABS: DIFFERENTIAL COMMENT MANUAL DIFFERENTIAL; LYMPHOCYTES # (MANUAL) 5.7 10^3/uL (1.5-3.5); LYMPHOCYTES % (MANUAL) 27 %; MONOCYTES # (MANUAL) 1.3 10^3/uL (0.0-1.0); PLATELET ESTIMATE, MANUAL NORMAL (130-450,000) (NORMAL); PLATELET MORPHOLOGY NORMAL APPEARANCE (NORMAL); RBC MORPHOLOGY (MULTIPLE) NORMAL APPEARANCE (NORMAL); REACTIVE LYMPHS % (MANUAL) 3 %
[2021-07-23 12:57] VITALS: BP 133/121
[2021-07-23] MEDS ORDERED: POTASSIUM CHLORIDE 20 MEQ/15 ML UDC PO SCH (13:00)
[2021-07-23] MEDS ORDERED: CEFEPIME 2 GM in SODIUM CHLORIDE 0.9% MINIBAG 100 ML IV SCH (14:00)
== END 2021-07-23 12:57 | disposition home or self-care (01) ==
LOC: ED 13:10
DX: R11.2 Nausea with vomiting, unspecified (principal); E87.6 Hypokalemia; K80.00 Calculus of gallbladder with acute cholecystitis without obstruction; I10 Essential (primary) hypertension; Z87.891 Personal history of nicotine dependence; E86.0 Dehydration; N17.9 Acute kidney failure, unspecified
CPT/HCPCS: 36415; 74177; 76700; 80053; 81001; 83605; 83690; 85025; 87040; 96365; 96366; 96367; 96375; 96376; 99284; 99285; A9270; J2060; J2765; J7040; Q9967; 81003; 87086

== ENCOUNTER 2021-09-29 14:17 | Outpatient (CLI) | payer MEDICARE, OTHER | END 2021-09-29 14:18 | disposition critical access hospital (66) | LOC: EMS 14:17 | DX: R10.9 Unspecified abdominal pain (principal); R11.2 Nausea with vomiting, unspecified | CPT/HCPCS: A0425; A0427 ==

== ENCOUNTER 2021-10-14 13:04 | Outpatient (CLI) | payer MEDICARE, OTHER ==
--- NOTE | 2021-10-15 08:37 | Nuclear Medicine Report ---
PROCEDURE: Hepatobiliary HIDA w/ Rx INDICATIONS: RIGHT UPPER QUAD ABD PAIN RADIOPHARMACEUTICAL: 4.9 mCi Tc-99m meprofenin i.v. and 1.0 g sincalide i.v. TECHNIQUE: The exam was modified due to claustrophobia. Following intravenous administration of Tc-9 9m meprofenin, static anterior abdominal images were obtained at every 10 minutes for 60 minutes. To evaluate the contractile response of the gallbladder in response to Cholecystokinin (CCK), 1.0 micro gram sincalide (0.02 g/kg) was administered by slow intravenous infusion approximately [address] the administration of the radiopharmaceutical. Additional imaging was obtained every 10 minutes for additional 60 minutes after the start of CCK infusion. Gallbladder ejection fraction was calcula patrick. COMPARISON: Ultrasound gallbladder, 07/22/2021. FINDINGS: Biliary scan: There is normal tracer uptake and excretion by the liver. There is normal visualizati on of the intrahepatic ducts, common bile duct, and gallbladder. There is normal tracer transit into the duodenum. CCK stimulation: There is normal contractile response of the gallbladder to CCK infusion. The calcu lated gallbladder ejection fraction is 88.5%; normal values are above 35%. IMPRESSION: 1. Normal filling of gallbladder. No scintigraphic findings to suggest acute cholecystitis. 2. Normal contractile response of gallbladder to CCK infusion. Reviewed by: Corinna Webb MD on 10/15/2021 8:35 AM PST Approved by: Corinna Webb MD on 10/15/2021 8:35 AM [facility] Station ID: [id number]
== END 2021-10-14 13:05 | disposition home or self-care (01) ==
LOC: DI 13:04
PROVIDERS: ATTEND Surgery
DX: R10.11 Right upper quadrant pain (principal)
CPT/HCPCS: 78227

== ENCOUNTER 2021-10-18 17:03 | Outpatient (CLI) | payer MEDICARE, OTHER | END 2021-10-18 17:04 | disposition short-term general hospital (02) | LOC: EMS 17:03 | DX: R10.9 Unspecified abdominal pain (principal); R11.2 Nausea with vomiting, unspecified; R51.9 Headache, unspecified; R30.0 Dysuria | CPT/HCPCS: A0425; A0427 ==

== ENCOUNTER 2021-10-22 08:00 | Outpatient (CLI) | payer MEDICARE, OTHER ==
--- NOTE | 2021-10-22 18:07 | XRAY Report ---
PROCEDURE: Lumbar Spine 2 View INDICATIONS: LOW BACK PAIN TECHNIQUE: 2 views of the lumbar spine were acquired. COMPARISON: None. FINDINGS: Bones: 5 nir-fja-audduwf vertebrae are present. Mild scoliotic curvature, with convexity to the righ t, centered at L4. No vertebral body compression fractures. No suspicious bony lesions. Lower lumba r facet arthropathy. Suspect canal stenosis. Soft tissues: Overlying bowel gas pattern is normal. No suspicious soft tissue calcifications. IMPRESSION: Mild scoliotic curvature. Lower lumbar facet arthropathy. Suspect canal stenosis. No eduardo dence acute bony abnormality of the lumbar spine. If clinical suspicion and/or symptoms persist, further assessment with repeat plain films or advanced imaging (e.g., CT, MRI, or bone scan) may be helpful for further assessment. Reviewed by: Rafa Segura MD on 10/22/2021 6:06 PM PST Approved by: Rafa Segura MD on 10/22/2021 6:06 PM PST Station ID: [id number]
== END 2021-10-22 23:59 | disposition home or self-care (01) ==
LOC: DI.S 08:00
PROVIDERS: ATTEND Physician Assistant Medical
DX: M47.816 Spondylosis without myelopathy or radiculopathy, lumbar region (principal)

== ENCOUNTER 2021-11-21 15:19 | Emergency (ER) | payer MEDICARE, OTHER ==
--- NOTE | 2021-11-21 15:36 | ED Physician Documentation ---
PD HPI ABD PAIN - Stated complaint Stated Complaint: ABD PX - Chief complaint Chief Complaint: Abd Pain - History obtained from History obtained from: Patient - History of Present Illness Timing - onset: How many months ago (has had episodes of feeling bloated in abd and pressure, with gasiness (belching and some flatulence). SHe will then have large passage of gas and feel improved for awhile. Has had increased bloating and pain the past few days without improvement this time. No vomiting.) Timing - duration: Days (commonly lasts for day or so, then improves with BM/passage of gas. CUrrent episode distension for past 3-4 days.) Timing - details: Gradual onset, Waxing and waning Quality: Cramping, Aching, Fullness/distended Location: LLQ, Other (lower abd mostly) Radiation: No: Chest, Lower back, Left flank Improved by: BM (or passage of gas or belching.). No: Meds (takes simethicone and dicyclomine.) Worsened by: Eating Associated symptoms: Nausea. No: Fever, Vomiting, Diarrhea (she feels she is having regular firm BMS.), Constipation Similar symptoms before: No diagnosis (has had abd pain episodes for awhile with prior CTs, U?S And also with recent HIDA that was normal. Has had prior colostomy for colitis with subsequent reversal Dr. Sigala. SHE has seen him and he does not feel the pains are related to the surgeries.) Recently seen: Clinic, Other (has appt with [facility] later this week (in 3 days).) Review of Systems Constitutional: denies: Fever, Chills Nose: denies: Rhinorrhea / runny nose, Congestion Throat: denies: Sore throat Cardiac: denies: Chest pain / pressure, Palpitations Respiratory: denies: Dyspnea, Cough GI: reports: Abdominal Pain, Nausea. denies: Vomiting, Constipation, Diarrhea, Bloody / black stool : denies: Dysuria, Frequency Neurologic: denies: Generalized weakness PD PAST MEDICAL HISTORY - Past Medical History Cardiovascular: Hypertension Respiratory: None Neuro: None Endocrine/Autoimmune: None GI: Other CREAM BUYER: None : None HEENT: None Psych: None Musculoskeletal: None Derm: None - Past Surgical History Past Surgical History: No General: Bowel surgery - Present Medications Home Medications: Ambulatory Orders Medication Instructions Recorded Confirmed Metoclopramide [Reglan] 10 mg PO Q6H PRN #20 tablet 02/11/21 03/27/21 Omeprazole Magnesium 20 mg PO PRN PRN 02/11/21 03/27/21 Prochlorperazine Maleate 10 mg PO PRN PRN 02/11/21 03/27/21 HYDROcod/ACETAM 5/325 [[place] 5/325] 1 - 2 tab PO Q6H PRN #20 tablet 03/27/21 Metoprolol Tartrate [Lopressor] 1 tab PO BID 03/27/21 03/27/21 Wheelchair 1 unit TD ONCE #1 03/27/21 Ciprofloxacin HCl [Cipro] 500 mg PO BID #14 tablet 07/23/21 Promethazine HCl [Promethazine HCl 25 mg RC TID #30 supp.rect 07/23/21 supp] metroNIDAZOLE [Flagyl] 500 mg PO TID #21 tablet 07/23/21 Alprazolam [Xanax] 0.5 mg PO ONCE #1 tablet 10/12/21 Digestive 8/L.acidoph/Pectin 2 each PO DAILY 15 Days #30 tablet 11/21/21 [Digestive Enzymes Tablet] Docusate Sodium 100Mg Capsule 100 mg PO DAILY #20 cap 11/21/21 [Colace 100Mg Capsule] HYDROcod/ACETAM 5/325 [[place] 5/325] 1 ea PO Q6H PRN #15 tablet 11/21/21 Ondansetron Odt [Zofran] 4 mg TL Q6H PRN #10 tablet 11/21/21 - Allergies Allergies/Adverse Reactions: Allergies Allergy/AdvReac Type Severity Reaction Status Date / Time Penicillins Allergy Unknown Verified 11/21/21 15:27 - Social History Does the pt smoke?: No Smoking Status: Former smoker Does the pt drink ETOH?: Yes Does the pt have substance abuse?: No - Immunizations Immunizations are current?: Yes - POLST Patient has POLST: Yes POLST Status: DNR PD ED PE NORMAL - Vitals Vital signs reviewed: Yes - General General: Alert and oriented X 3, Well developed/nourished, Other (appears uncomfortable due to abd pain/distension. ) - Neck Neck: Supple, no meningeal sign, No adenopathy - Cardiac Cardiac: RRR, No murmur - Respiratory Respiratory: Clear bilaterally - Abdomen Abdomen: Soft, No organomegaly, Other (moderate distension, more to lower abd. Increased bowel sounds throughout. Tender lower left abd with some local guarding. No herniass felt. ) - Female Female : Deferred - Rectal Rectal: Deferred - Back Back: No CVA TTP - Derm Derm: Normal color, Warm and dry - Extremities Extremities: No edema, No calf tenderness / cord Results - Vitals Vitals: Vital Signs - 24 hr 11/21/21 11/21/21 11/21/21 15:27 17:31 17:40 Temperature 36.5 C Heart Rate 87 67 67 Respiratory 16 19 19 Rate Blood Pressure 180/90 H 205/113 H 174/102 H O2 Saturation 99 100 99 11/21/21 18:27 Temperature Heart Rate 72 Respiratory 18 Rate Blood Pressure 139/92 H O2 Saturation 98 Oxygen O2 Source Room air - Labs Labs: Laboratory Tests 11/21/21 11/21/21 11/21/21 15:35 15:42 15:42 WBC 11.7 H RBC 4.34 Hgb 12.1 Hct 38.6 MCV 88.9 MCH 27.9 MCHC 31.3 L RDW 15.5 H Plt Count 351 MPV 11.1 H Neut # (Auto) 7.2 H Lymph # (Auto) 3.9 H [place] # (Auto) 0.5 Eos # (Auto) 0.1 Baso # (Auto) 0.1 Absolute Nucleated RBC 0.00 Nucleated RBC % 0.0 Sodium 134 L Potassium 3.8 Chloride 96 L Carbon Dioxide 26 Anion Gap 12.0 BUN 10 Creatinine 0.8 Estimated GFR (MDRD) 71 L Glucose 122 H Calcium 9.4 Total Bilirubin 0.4 AST 29 ALT 19 Alkaline Phosphatase 74 Total Protein 8.1 Albumin 4.9 Globulin 3.2 Albumin/Globulin Ratio 1.5 Lipase 30 Urine Color YELLOW Urine Clarity CLEAR Urine pH 6.0 Ur Specific [place] 1.015 Urine Protein NEGATIVE Urine Glucose (UA) 100 H Urine Ketones NEGATIVE Urine Occult Blood TRACE-INTA Urine Nitrite NEGATIVE Urine Bilirubin NEGATIVE Urine Urobilinogen 0.2 (NORMAL) Ur Leukocyte Esterase NEGATIVE Ur Microscopic Review NOT INDICATED Urine Culture Comments NOT INDICATED - Rads (name of study) abd/pelvic CT Radiology: Prelim report reviewed (distended bowel loops proximal large bowel and small bowel. Decompressed with some stool after distal transverse colon; possible partial bowel obstruction at that point. ), See rad report PD MEDICAL DECISION MAKING - ED course Complexity details: reviewed results (CT appearing with possible partial bowel obstruction distal transverse colon, which is likely the area of her re- anastomosis from colostomy. As such, consider some scar tissue stenosis causing intermittent obstructions and the above symptoms. To discuss it with upcoming [facility] appt and surgeon.), considered differential, d/w patient Departure - Departure Disposition: 01 Home, Self Care Clinical Impression: Abdominal pain Qualifiers: Abdominal location: generalized Qualified Code(s): R10.84 - Generalized abdominal pain Partial bowel obstruction Qualifiers: Intestinal obstruction type: unspecified Qualified Code(s): K56.600 - Partial intestinal obstruction, unspecified as to cause Condition: Stable Record reviewed to determine appropriate education?: Yes Instructions: ED Abdominal Pain Adhesions Follow-Up: Wilbert Hernández MD [Provider Admit Priv/Credential] - Prescriptions: Docusate Sodium 100Mg Capsule [Colace 100Mg Capsule] 100 mg PO DAILY #20 cap Digestive 8/L.acidoph/Pectin [Digestive Enzymes Tablet] 2 each PO DAILY 15 Days #30 tablet HYDROcod/ACETAM 5/325 [[place] 5/325] 1 ea PO Q6H PRN #15 tablet PRN Reason: Pain Ondansetron Odt [Zofran] 4 mg TL Q6H PRN #10 tablet PRN Reason: Nausea / Vomiting Comments: Your CT scan shows some fullness of the proximal or upper part of the large intestine and less fullness in the lower part. This may represent some tightness or adhesions from your prior colostomy reversal where things are not passing through as easily. This could represent your gassiness and bloating and discomfort. At this point I would have you try mostly liquid diet for a couple of days or very soft foods. Continue your other usual medicines. I would add a mild stool softener docusate daily so that the stool passes through this area more easily. You could consider some digestive enzymes as well as that might be contributing to the gassiness. Tylenol or hydrocodone if needed for pains. Follow-up with your planned gastroenterology appointment this coming week. Also consider following up with Dr. Sigala. I transmitted your prescriptions to the [facility] pharmacy. I am prescribing a short course of narcotic pain medication for you. These are potentially dangerous and addictive medications that should be used carefully. These medications may constipate you. Take an rzaq-agn-yceysmf stool softener such as docusate twice daily with plenty of water while taking these medications. If you go 24 hours without a bowel movement, take [id number] MiraLAX, per package instructions. Do not drink or drive while taking these medications. If you received narcotic or sedating medications while in the emergency department do not drive for 24 hours. Store this medication in a safe, secure place and out of reach of children. It is a violation of federal law to give or sell this medication to another person or to use in a manner other than prescribed. The ED will not refill narcotic prescriptions, including prescriptions lost or stolen. You can dispose of unwanted medications at the [facility]'s office or at several pharmacies such as [facility]. Discharge Date/Time: 11/21/21 18:53
[2021-11-21 15:49] LABS: BILIRUBIN,URINE NEGATIVE (NEGATIVE); GLUCOSE, URINE (UA) 100 mg/dL (NEGATIVE); KETONES,URINE (UA) NEGATIVE (NEGATIVE); LEUKOCYTE ESTERASE, URINE NEGATIVE (NEGATIVE); NITRITE,URINE NEGATIVE (NEGATIVE); OCCULT BLOOD,URINE TRACE-INTA (NEGATIVE); PROTEIN,URINE NEGATIVE (NEGATIVE); UROBILINOGEN,URINE 0.2 (NORMAL) E.U./dL (NORMAL)
[2021-11-21 15:57] LABS: BASOPHILS # (AUTO) 0.1 10^3/uL (0.0-0.1); BASOPHILS % (AUTO) 0.7 %; EOSINOPHILS # (AUTO) 0.1 10^3/uL (0.0-0.7); EOSINOPHILS % (AUTO) 0.8 %; HCT - HEMATOCRIT 38.6 % (37.0-47.0); HGB - HEMOGLOBIN 12.1 g/dL (12.0-16.0); LYMPHOCYTES # (AUTO) 3.9 10^3/uL (1.5-3.5); MEAN CORPUSCULAR HEMOGLOBIN 27.9 pg (27.0-31.0); MEAN CORPUSCULAR HGB CONC 31.3 g/dL (32.0-36.0); MEAN CORPUSCULAR VOLUME 88.9 fL (81.0-99.0); MEAN PLATELET VOLUME 11.1 fL (7.9-10.8); MONOCYTES # (AUTO) 0.5 10^3/uL (0.0-1.0); MONOCYTES % (AUTO) 3.9 %; NEUTROPHILS # (AUTO) 7.2 10^3/uL (1.5-6.6); NEUTROPHILS % (AUTO) 61.2 %; PLT - PLATELET COUNT 351 10^3/uL (130-450); RED BLOOD COUNT 4.34 10^6/uL (4.20-5.40); RED CELL DISTRIBUTION WIDTH 15.5 % (12.0-15.0); WHITE BLOOD COUNT 11.7 x10^3/uL (4.8-10.8)
[2021-11-21 16:09] LABS: ALBUMIN 4.9 g/dL (3.2-5.5); ALBUMIN/GLOBULIN RATIO 1.5 (1.0-2.2); BILIRUBIN,TOTAL 0.4 mg/dL (0.2-1.0); CALCIUM 9.4 mg/dL (8.5-10.3); CREATININE 0.8 mg/dL (0.4-1.0); POTASSIUM 3.8 mmol/L (3.5-5.0); TOTAL PROTEIN 8.1 g/dL (6.7-8.2)
[2021-11-21 16:09] LABS: CLARITY,URINE CLEAR (CLEAR)
[2021-11-21] MEDS ORDERED: SODIUM CHLORIDE 0.9% 1,000 ML IV STA (16:18)
[2021-11-21] MEDS ORDERED: KETOROLAC 15 MG/ML VIAL IVP STA (16:18)
[2021-11-21] MEDS ORDERED: DROPERIDOL 5 MG/2 ML VIAL IVP STA (16:19)
[2021-11-21] MEDS ORDERED: IOVERSOL 320 100 ML VIAL IVP ONE ×2 (16:35→18:04)
[2021-11-21] MEDS ORDERED: LORazepam 2 MG/ML VIAL IVP STA (17:28)
--- NOTE | 2021-11-21 18:22 | CT Report ---
PROCEDURE: Abdomen/Pelvis W INDICATIONS: abd fullness, nausea CONTRAST: IV CONTRAST: Optiray 320 ml: 100 PO CONTRAST: *NO PO CONTRAST TECHNIQUE: After the administration of contrast, 5 mm thick sections acquired from the diaphragms to the symphys is. 5 mm thick coronal and sagittal reformats were acquired. For radiation dose reduction, the foll owing was used: automated exposure control, adjustment of mA and/or kV according to patient size. COMPARISON: 09/29/2021 FINDINGS: Image quality: Excellent. ABDOMEN: Lung bases: Lung bases are clear. Heart size is normal. Solid organs: Liver and spleen are normal in size and enhancement. Gallbladder is normal Biliary s ystem is non dilated. Pancreas enhances normally. No adrenal nodules. Kidneys demonstrate normal s ize and enhancement, without hydronephrosis. Peritoneum and bowel: Bowel loops demonstrate normal wall thickness and caliber. No free fluid or a ir. There is stool fluid in the transverse colon and right colon. Multiple surgical clips are presen t in the right lower quadrant. The appendix is not definitively visualized. Multiple surgical clips a re present in the right lower quadrant. Nodes and vessels: No retroperitoneal or mesenteric adenopat hy by size criteria. No free air. Aorta and inferior vena cava are normal in size. Miscellaneous: No ventral hernias. PELVIS: Distention with fluid. Genitourinary: Bladder wall thickness is normal. Miscellaneous: No inguinal hernias or adenopathy. Bones: No suspicious bony lesions. No vertebral body compression fractures. IMPRESSION: 1. Fluid distention of the distal small bowel, right colon, and transverse colon. 2. No evidence of small bowel obstruction. Possible partial obstruction in the distal transverse col on.. 3. The appendix is not seen, therefore acute appendicitis cannot be excluded, however given surgical clips in the right lower quadrant the patient may have had the appendix resected. Please correlate wi th clinical history. Reviewed by: Graeme Nieves on 11/21/2021 6:20 PM PST Approved by: Graeme Nieves on 11/21/2021 6:20 PM PST Station ID: [id number] Bone Density - [id number]
[2021-11-21 18:28] VITALS: BP 139/92
== END 2021-11-21 18:53 | disposition home or self-care (01) ==
LOC: ED 15:19
DX: K56.600 Partial intestinal obstruction, unspecified as to cause (principal); Z87.891 Personal history of nicotine dependence; Z66 Do not resuscitate
CPT/HCPCS: 36415; 74177; 80053; 81003; 83690; 85025; 96361; 96374; 96375; 99284; J2060; Q9967; 81001; 87086

== ENCOUNTER 2022-01-08 07:40 | Emergency (ER) | payer MEDICARE, OTHER ==
[2022-01-08] MEDS ORDERED: KETOROLAC 15 MG/ML VIAL IVP STA (08:09)
[2022-01-08] MEDS ORDERED: LORazepam 2 MG/ML VIAL IVP STA (08:09)
--- NOTE | 2022-01-08 08:10 | ED Physician Documentation ---
PD HPI ABD PAIN - Stated complaint Stated Complaint: ABD PAIN/CRAMPING - Chief complaint Chief Complaint: Abd Pain - History obtained from History obtained from: Patient - Additional information Additional information: 66-year-old woman with history of perforated diverticulitis necessitating colostomy and subsequent takedown developed a stricture at her anastomosis and had had issues with constipation and abdominal issues for quite some time. 3 weeks ago went to [facility] where she had a colonic stricture dilated Tatian done by Dr. Duckworth via colonoscope and since then has had much worse constant a bdominal cramping in both lower quadrants with a stabbing pain in the right low back. She is still constipated with small bowel movements but no vomiting. She came to the emergency department a few days ago but had a panic attack and subsequently had to leave without being treated. She did drive here today but would like something for anxiety before a CT and is agreeable to getting a ride home. She is not sleeping because of the pain. She was started on Lexapro yesterday for the anxiety. 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 : None HEENT: None Psych: None Musculoskeletal: None Derm: None - Past Surgical History Past Surgical History: No General: Bowel surgery - Present Medications Home Medications: Ambulatory Orders Medication Instructions Recorded Confirmed Metoclopramide [Reglan] 10 mg PO Q6H PRN #20 tablet 02/11/21 03/27/21 Omeprazole Magnesium 20 mg PO PRN PRN 02/11/21 03/27/21 Prochlorperazine Maleate 10 mg PO PRN PRN 02/11/21 03/27/21 HYDROcod/ACETAM 5/325 [[place] 5/325] 1 - 2 tab PO Q6H PRN #20 tablet 03/27/21 Metoprolol Tartrate [Lopressor] 1 tab PO BID 03/27/21 03/27/21 Wheelchair 1 unit TD ONCE #1 03/27/21 Ciprofloxacin HCl [Cipro] 500 mg PO BID #14 tablet 07/23/21 Promethazine HCl [Promethazine HCl 25 mg RC TID #30 supp.rect 07/23/21 supp] metroNIDAZOLE [Flagyl] 500 mg PO TID #21 tablet 07/23/21 Alprazolam [Xanax] 0.5 mg PO ONCE #1 tablet 10/12/21 Digestive 8/L.acidoph/Pectin 2 each PO DAILY 15 Days #30 tablet 11/21/21 [Digestive Enzymes Tablet] Docusate Sodium 100Mg Capsule 100 mg PO DAILY #20 cap 11/21/21 [Colace 100Mg Capsule] HYDROcod/ACETAM 5/325 [[place] 5/325] 1 ea PO Q6H PRN #15 tablet 11/21/21 Ondansetron Odt [Zofran] 4 mg TL Q6H PRN #10 tablet 11/21/21 Dicyclomine [Bentyl] 1 - 2 tab PO QID PRN #20 cap 01/08/22 LORazepam [Ativan] 1 mg PO TID PRN #4 tablet 01/08/22 Oxycodone HCl/Acetaminophen 1 - 2 each PO Q6H PRN #14 tablet 01/08/22 [Percocet 5-325 mg Tablet] - Allergies Allergies/Adverse Reactions: Allergies Allergy/AdvReac Type Severity Reaction Status Date / Time Penicillins Allergy Unknown Verified 01/08/22 07:55 - Social History Does the pt smoke?: No Smoking Status: Former smoker Does the pt drink ETOH?: Yes Does the pt have substance abuse?: No - Immunizations Immunizations are current?: Yes - POLST Patient has POLST: Yes POLST Status: DNR PD ED PE NORMAL - Vitals Vital signs reviewed: Yes - General General: Alert and oriented X 3, Other (Mildly anxious but otherwise in no distress) - HEENT HEENT: PERRL, EOMI - Neck Neck: Supple, no meningeal sign, No bony TTP - Cardiac Cardiac: RRR, No murmur - Respiratory Respiratory: No respiratory distress, Clear bilaterally - Abdomen Abdomen: Other (Well-healed surgical scars midline and left side with hyperactive bowel tones and mild diffuse tenderness. No surgical signs.) - Back Back: No CVA TTP, No spinal TTP - Derm Derm: Normal color, Warm and dry - Extremities Extremities: No edema, No calf tenderness / cord - Neuro Neuro: Alert and oriented X 3, Normal speech Results - Vitals Vitals: Vital Signs - 24 hr 01/08/22 07:52 Temperature 36.0 C L Heart Rate 111 H Respiratory 16 Rate Blood Pressure 230/127 H O2 Saturation 100 Oxygen O2 Source Room air - Labs Labs: Laboratory Tests 01/08/22 01/08/22 08:17 08:17 WBC 10.2 RBC 3.81 L Hgb 9.7 L Hct 31.5 L MCV 82.7 MCH 25.5 L MCHC 30.8 L RDW 17.2 H Plt Count 389 MPV 9.5 Neut # (Auto) 5.1 Lymph # (Auto) 4.2 H [place] # (Auto) 0.5 Eos # (Auto) 0.2 Baso # (Auto) 0.1 Absolute Nucleated RBC 0.00 Nucleated RBC % 0.0 Sodium 136 Potassium 4.1 Chloride 101 Carbon Dioxide 25 Anion Gap 10.0 BUN 17 Creatinine 0.6 Estimated GFR (MDRD) 99 Glucose 131 H Calcium 9.0 Total Bilirubin 0.5 AST 23 ALT 15 Alkaline Phosphatase 57 Total Protein 7.1 Albumin 4.4 Globulin 2.7 Albumin/Globulin Ratio 1.6 Lipase 40 PD MEDICAL DECISION MAKING - ED course ED course: 66-year-old woman presents with increased pain after a colonic dilatation a few weeks ago. Work-up demonstrates a modest anemia, worse than prior and no acute findings on CT. She is feeling much better after meds here. She plans to follow-up with her GI which is appropriate. Departure - Departure Disposition: 01 Home, Self Care Condition: Good Record reviewed to determine appropriate education?: Yes Instructions: ED Abdominal Pain Female Non-Specific Abdominal Pain Prescriptions: LORazepam [Ativan] 1 mg PO TID PRN #4 tablet PRN Reason: Anxiety Dicyclomine [Bentyl] 1 - 2 tab PO QID PRN #20 cap PRN Reason: Abdominal Pain Oxycodone HCl/Acetaminophen [Percocet 5-325 mg Tablet] 1 - 2 each PO Q6H PRN #14 tablet PRN Reason: pain Comments: As discussed, the CT did not show a reason for your pain per se, the area of colon that was swollen before the procedure looks better now. There were some incidental findings such as a hiatal and diaphragmatic hernia, scoliosis, and your lab work shows moderate anemia which probably needs to be mention to your GI as well with a hemoglobin of 9.7, hematocrit 31.5, and normal MCV. I sent your prescriptions electronically to [facility] in [place], follow-up with your GI, next available appointment calling tomorrow for an appointment. I am prescribing a short course of narcotic pain medication for you. These are potentially dangerous and addictive medications that should be used carefully. These medications may constipate you. Take an xeoj-yfj-bswqyfo stool softener (docusate) twice daily with plenty of water while taking these medications. If you go 24 hours without a bowel movement, take [id number] miralax, per package instructions. Do not drink or drive while taking these medications. If you received narcotic or sedating medications while in the emergency department, do not drive for 24 hours. Store this medication in a safe, secure place and out of reach of children. It is a violation of federal law to give or sell this medication to another person or to use in a manner other than prescribed. The ED will not refill narcotic prescriptions, including prescriptions lost or stolen. To dispose of unwanted medications: 1. [facility] at [address] [facility] in [place] has a medication drop box. They accept prescription medications (in pill form) Sunday through Sunday 9:00 a.m. to 5:00 p.m. 2. The [facility] [employer] accepts prescription medications (in pill form only) for disposal year round. Call for more information. 3. Contact the [facility] for the next [facility] sponsored prescription drug collection event. , [phone], or [phone]; Note that many narcotic pain relievers also contain Tylenol/acetaminophen. Please ensure that your total dose of acetaminophen from all sources does not exceed 3 g (3000 mg) per day.
[2022-01-08 08:21] LABS: BASOPHILS # (AUTO) 0.1 10^3/uL (0.0-0.1); BASOPHILS % (AUTO) 0.9 %; EOSINOPHILS # (AUTO) 0.2 10^3/uL (0.0-0.7); EOSINOPHILS % (AUTO) 2.3 %; HCT - HEMATOCRIT 31.5 % (37.0-47.0); HGB - HEMOGLOBIN 9.7 g/dL (12.0-16.0); LYMPHOCYTES # (AUTO) 4.2 10^3/uL (1.5-3.5); LYMPHOCYTES % (AUTO) 41.3 %; MEAN CORPUSCULAR HEMOGLOBIN 25.5 pg (27.0-31.0); MEAN CORPUSCULAR HGB CONC 30.8 g/dL (32.0-36.0); MEAN CORPUSCULAR VOLUME 82.7 fL (81.0-99.0); MEAN PLATELET VOLUME 9.5 fL (7.9-10.8); MONOCYTES # (AUTO) 0.5 10^3/uL (0.0-1.0); MONOCYTES % (AUTO) 4.9 %; NEUTROPHILS # (AUTO) 5.1 10^3/uL (1.5-6.6); PLT - PLATELET COUNT 389 10^3/uL (130-450); RED BLOOD COUNT 3.81 10^6/uL (4.20-5.40); RED CELL DISTRIBUTION WIDTH 17.2 % (12.0-15.0); WHITE BLOOD COUNT 10.2 x10^3/uL (4.8-10.8)
[2022-01-08] MEDS ORDERED: IOVERSOL 320 50 ML VIAL ONE (08:32)
[2022-01-08] MEDS ORDERED: IOVERSOL 320 100 ML VIAL IVP ONE ×2 (08:32→10:08)
[2022-01-08 08:36] LABS: ALBUMIN 4.4 g/dL (3.2-5.5); ALBUMIN/GLOBULIN RATIO 1.6 (1.0-2.2); BILIRUBIN,TOTAL 0.5 mg/dL (0.2-1.0); CREATININE 0.6 mg/dL (0.4-1.0); POTASSIUM 4.1 mmol/L (3.5-5.0); TOTAL PROTEIN 7.1 g/dL (6.7-8.2)
[2022-01-08] MEDS ORDERED: oxyCODONE 5 MG TABLET PO STA (09:50)
[2022-01-08] MEDS ORDERED: IOVERSOL 320 50 ML VIAL PO ONE (10:08)
--- NOTE | 2022-01-08 10:17 | CT Report ---
PROCEDURE: Abdomen/Pelvis W INDICATIONS: IV and PO, abd pain CONTRAST: IV CONTRAST: Optiray 320 ml: 100 PO CONTRAST: Optiray 320 ml50 TECHNIQUE: After the administration of oral and IV contrast, 5 mm thick sections acquired from the diaphragms to the symphysis. 5 mm thick coronal and sagittal reformats were acquired. For radiation dose reducti on, the following was used: automated exposure control, adjustment of mA and/or kV according to alexander ent size. COMPARISON: 11/21/2021, 09/29/2021, 07/22/2021 FINDINGS: Image quality: Excellent. ABDOMEN: Lung bases: Lung bases are clear. Heart size is normal. A mild right posterior diaphragmatic herni a can be seen, which contains fat. A small hiatal hernia is incidentally noted. Solid organs: Liver and spleen are normal in size and enhancement. Gallbladder demonstrates no sign ificant CT abnormality Biliary system is non dilated. Pancreas enhances normally. No adrenal nodul es. Kidneys demonstrate normal size and enhancement, without hydronephrosis. Peritoneum and bowel: Lower abdominal and stomach staple lines are seen involving the right lower qu adrant and the rectum. Bowel loops demonstrate normal wall thickness and caliber. No free fluid or a ir. No appendix can be seen, either normal or abnormal. No focal right lower quadrant inflammatory ch anges are seen. Nodes and vessels: No retroperitoneal or mesenteric adenopathy by size criteria. Aorta and inferior vena cava are normal in size. Atherosclerotic calcification is seen. Miscellaneous: No ventral hernias. PELVIS: Genitourinary: Bladder wall thickness is normal. Miscellaneous: No inguinal hernias or adenopathy. Bones: There are remote, healed fracture of the right superior and inferior pubic rami. No suspicious bony lesions. No vertebral body compression fractures. Mild dextroconvex scoliotic curvature is se en. This patient has transitional anatomy. For the purposes of this examination, the level with small ribs is considered to be T12. By this numbering scheme, the L5 level is transitional and sacralized on the left. IMPRESSION: No acute abnormality is seen. The previously seen fluid distended bowel has resolved. Right lower quadrant and rectal anastomotic stomach staple lines are seen. Incidental note is made of: Mild fat-containing right posterior diaphragmatic hernia Small hiatal hernia Dextroconvex scoliotic curvature Transitional lumbar anatomy, with a partially sacralized L5 level Remote, healed fractures of the right superior and inferior pubic rami Reviewed by: Alexis Rivers MD on 01/08/2022 9:16 AM [facility] Approved by: Alexis Rivers MD on 01/08/2022 9:16 AM [facility] Station ID: [id number]
[2022-01-08 10:47] VITALS: BP 183/107
== END 2022-01-08 10:45 | disposition home or self-care (01) ==
LOC: ED 07:40
DX: R10.9 Unspecified abdominal pain (principal); Z87.891 Personal history of nicotine dependence; Z66 Do not resuscitate
CPT/HCPCS: 36415; 74177; 80053; 83690; 85025; 96374; 96375; 99284; A9270; J2060; Q9967

== ENCOUNTER 2022-02-07 12:21 | Outpatient (CLI) | payer MEDICARE, OTHER ==
--- NOTE | 2022-02-07 16:48 | XRAY Report ---
PROCEDURE: Thoracic Spine 3 View INDICATIONS: XRAY TECHNIQUE: 3 views of the thoracic spine were acquired. COMPARISON: None. FINDINGS: Bones: No fractures or dislocations. No suspicious bony lesions. 12 pairs of ribs are noted, and a ppear intact where visualized. There is leftward scoliotic curvature with apex at T10-11. Soft tissues: No paravertebral stripe thickening. IMPRESSION: Leftward scoliotic curvature. Reviewed by: Marzena Griffith MD on 02/07/2022 4:47 PM PDT Approved by: Marzena Griffith MD on 02/07/2022 4:47 PM PDT Station ID: [id number]
== END 2022-02-07 12:22 | disposition home or self-care (01) ==
LOC: DI.S 12:21
PROVIDERS: ATTEND Nurse Practitioner Family
DX: M54.6 Pain in thoracic spine (principal); M41.9 Scoliosis, unspecified

== ENCOUNTER 2022-02-25 08:00 | Outpatient (CLI) | payer MEDICARE, OTHER ==
--- NOTE | 2022-02-25 10:13 | XRAY Report ---
PROCEDURE: Abdomen Acute INDICATIONS: CONSTIPATION/ABDOMINAL PAIN TECHNIQUE: One view chest and two views of the abdomen were acquired. COMPARISON: CT abdomen pelvis 01/08/2022 FINDINGS: Surgical changes and devices: None. Chest: Lungs are clear. Heart size is normal. No pleural effusions. No pneumoperitoneum. Abdomen: Bowel gas pattern is normal. Mild scattered stool. No suspicious calcifications. Visualiz ed solid organ contours appear normal. Bones: No suspicious bony lesions. IMPRESSION: Mild scattered stool. No obstruction. Reviewed by: Marzena Griffith MD on 02/25/2022 10:12 AM PDT Approved by: Marzena Griffith MD on 02/25/2022 10:12 AM PDT Station ID: [id number]
== END 2022-02-25 23:59 | disposition home or self-care (01) ==
LOC: DI.S 08:00
PROVIDERS: ATTEND Emergency Medicine
DX: R10.9 Unspecified abdominal pain (principal)

== ENCOUNTER 2022-02-26 02:18 | Outpatient (CLI) | payer MEDICARE, OTHER | END 2022-02-26 02:19 | disposition critical access hospital (66) | LOC: EMS 02:18 | DX: R11.2 Nausea with vomiting, unspecified (principal) | CPT/HCPCS: A0425; A0427 ==

== ENCOUNTER 2022-02-26 02:42 | Emergency (ER) | payer MEDICARE, OTHER ==
--- NOTE | 2022-02-26 02:46 | ED Physician Documentation ---
PD HPI ABD PAIN - Stated complaint Stated Complaint: N/V, ABD PAIN - History obtained from History obtained from: Patient, EMS - History of Present Illness Timing - onset: Enter time (17:00), Today Timing - details: Abrupt onset Pain level now: 8 Quality: Cramping Worsened by: Other (no exacerbating factors) Associated symptoms: Nausea, Vomiting. No: Fever, Diarrhea, Constipation Recently seen: Emergency Dept (last month for similar c/o) - Additional information Additional information: BIBA for c/o abdominal pain, nausea and vomiting. Patient has previous ED visits for similar c/o, with some encounters with symptom resolution and discharge from ED and other times requiring admission. She has had previous diagnoses (with similar c/o) of SBO as well as diverticulitis with perforation. Past surgical history includes colostomy including takedown as well as recent dilatation of colonic stricture. Patients chief complaint tonight is nausea and vomiting , unable to tolerate any PO including sips of water and medications. She also c/o generalized abdominal cramping pain. She says she has had varying degrees of these symptoms since the dilatation procedure performed over a month ago and was seen in outpatient setting recently and had outpatient abdominal xrays yesterday; patient says she was told the xrays did not show any obstruction pattern. She says she does not feel constipated and had BM earlier today without relief of s ymptoms Review of Systems Constitutional: reports: Reviewed and negative Cardiac: reports: Reviewed and negative Respiratory: reports: Reviewed and negative GI: reports: Abdominal Pain, Nausea, Vomiting. 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 : None HEENT: None Psych: None Musculoskeletal: None Derm: None - Past Surgical History Past Surgical History: No General: Bowel surgery - Present Medications Home Medications: Ambulatory Orders Medication Instructions Recorded Confirmed Metoclopramide [Reglan] 10 mg PO Q6H PRN #20 tablet 02/11/21 03/27/21 Omeprazole Magnesium 20 mg PO PRN PRN 02/11/21 03/27/21 Prochlorperazine Maleate 10 mg PO PRN PRN 02/11/21 03/27/21 HYDROcod/ACETAM 5/325 [[place] 5/325] 1 - 2 tab PO Q6H PRN #20 tablet 03/27/21 Metoprolol Tartrate [Lopressor] 1 tab PO BID 03/27/21 03/27/21 Wheelchair 1 unit TD ONCE #1 03/27/21 Ciprofloxacin HCl [Cipro] 500 mg PO BID #14 tablet 07/23/21 Promethazine HCl [Promethazine HCl 25 mg RC TID #30 supp.rect 07/23/21 supp] metroNIDAZOLE [Flagyl] 500 mg PO TID #21 tablet 07/23/21 Alprazolam [Xanax] 0.5 mg PO ONCE #1 tablet 10/12/21 Digestive 8/L.acidoph/Pectin 2 each PO DAILY 15 Days #30 tablet 11/21/21 [Digestive Enzymes Tablet] Docusate Sodium 100Mg Capsule 100 mg PO DAILY #20 cap 11/21/21 [Colace 100Mg Capsule] HYDROcod/ACETAM 5/325 [[place] 5/325] 1 ea PO Q6H PRN #15 tablet 11/21/21 Ondansetron Odt [Zofran] 4 mg TL Q6H PRN #10 tablet 11/21/21 Dicyclomine [Bentyl] 1 - 2 tab PO QID PRN #20 cap 01/08/22 LORazepam [Ativan] 1 mg PO TID PRN #4 tablet 01/08/22 Oxycodone HCl/Acetaminophen 1 - 2 each PO Q6H PRN #14 tablet 01/08/22 [Percocet 5-325 mg Tablet] Metoclopramide [Reglan] 10 mg PO Q6H PRN #20 tablet 02/26/22 - Allergies Allergies/Adverse Reactions: Allergies Allergy/AdvReac Type Severity Reaction Status Date / Time Penicillins Allergy Unknown Verified 01/08/22 07:55 - Social History Does the pt smoke?: No Smoking Status: Former smoker Does the pt drink ETOH?: Yes Does the pt have substance abuse?: No - Immunizations Immunizations are current?: Yes - POLST Patient has POLST: Yes POLST Status: DNR PD ED PE NORMAL - Vitals Vital signs reviewed: Yes - General General: Alert and oriented X 3, Well developed/nourished, Other (vomiting at times during H+P) - HEENT HEENT: Moist mucous membranes - Cardiac Cardiac: No murmur - Respiratory Respiratory: No respiratory distress, Clear bilaterally - Abdomen Abdomen: Normal bowel sounds, Soft, Non tender, Non distended - Derm Derm: Normal color, Warm and dry PD ED PE EXPANDED - Cardiac Cardiac: Tachy, Regular Rhythm Results - Vitals Vitals: Oxygen O2 Source Room air - Labs Labs: Laboratory Tests 02/26/22 02/26/22 02/26/22 03:04 03:04 03:10 WBC 20.0 H RBC 4.83 Hgb 11.3 L Hct 36.8 L MCV 76.2 L MCH 23.4 L MCHC 30.7 L RDW 18.9 H Plt Count 323 MPV 10.0 Neut # (Auto) 15.0 H Lymph # (Auto) 4.3 H [place] # (Auto) 0.5 Eos # (Auto) 0.0 Baso # (Auto) 0.1 Absolute Nucleated RBC 0.00 Nucleated RBC % 0.0 Sodium 136 Potassium 3.1 L Chloride 96 L Carbon Dioxide 24 Anion Gap 16.0 H BUN 26 H Creatinine 0.8 Estimated GFR (MDRD) 71 L Glucose 175 H Calcium 9.8 Total Bilirubin 0.9 AST 38 ALT 27 Alkaline Phosphatase 65 Total Protein 8.6 H Albumin 5.3 Globulin 3.3 Albumin/Globulin Ratio 1.6 Lipase 28 Urine Color YELLOW Urine Clarity CLEAR Urine pH 6.0 Ur Specific [place] 1.025 Urine Protein 100 H Urine Glucose (UA) 500 H Urine Ketones 15 H Urine Occult Blood MODERATE H Urine Nitrite NEGATIVE Urine Bilirubin NEGATIVE Urine Urobilinogen 0.2 (NORMAL) Ur Leukocyte Esterase NEGATIVE Urine RBC 0-5 Urine WBC 0-3 Ur Squamous Epith Cells FEW Squamous Urine Bacteria Rare Ur Microscopic Review INDICATED Urine Culture Comments NOT INDICATED PD MEDICAL DECISION MAKING - ED course Complexity details: reviewed old records, reviewed results, re-evaluated patient, considered differential, d/w patient ED course: presents with c/o ongoing nausea, vomiting, and abdominal pain. She is nontender on initial exam as well as repeat exams during ED stay. She tells me she is most concerned about controlling the nausea and vomiting tonight. During ED stay she does not ask for pain medication and eventually has resolution without analgesics. She is given reglan for nausea with minimal improvement but subsequently had resolution of n/v with droperidol IV. Patient has significantly elevated blood pressures during most of her stay, with several readings of SBP over 220 and diastolic readings over 120. She is given IV metoprolol and then doses of labetol IV x 2. Her blood pressures improved with these measures, although the most notable and lasting improvement once her n/v resolved with the droperidol . She was then given PO metoprolol. Blood tests are most notable for leukocytosis with WBC of 20k. I note she has had over 15 CT A/P since 2017. Given her nontender abdominal exam, her stated concern of n/v and less concern of abdominal pain, and resolution of her symptoms without analgesics, imaging not performed on this ED visit. Results reviewed with patient , return precautions discussed Departure - Departure Disposition: 01 Home, Self Care Clinical Impression: Vomiting Qualifiers: Vomiting type: unspecified Nausea presence: with nausea Qualified Code(s): R11.2 - Nausea with vomiting, unspecified Condition: Good Instructions: ED Nausea Vomiting Prescriptions: Metoclopramide [Reglan] 10 mg PO Q6H PRN #20 tablet PRN Reason: Nausea / Vomiting Comments: A prescription for metaclopramide (reglan) has been electronically submitted to [facility] in [place]. Discharge Date/Time: 02/26/22 06:01
[2022-02-26] MEDS ORDERED: METOCLOPRAMIDE 10 MG/2 ML VIAL IVP STA (03:08)
[2022-02-26] MEDS ORDERED: SODIUM CHLORIDE 0.9% 1,000 ML IV STA (03:08)
[2022-02-26] MEDS ORDERED: METOPROLOL 5 MG/5 ML VIAL IVP STA (03:08)
[2022-02-26 03:14] LABS: BASOPHILS # (AUTO) 0.1 10^3/uL (0.0-0.1); BASOPHILS % (AUTO) 0.4 %; EOSINOPHILS % (AUTO) 0.2 %; HCT - HEMATOCRIT 36.8 % (37.0-47.0); HGB - HEMOGLOBIN 11.3 g/dL (12.0-16.0); LYMPHOCYTES # (AUTO) 4.3 10^3/uL (1.5-3.5); LYMPHOCYTES % (AUTO) 21.4 %; MEAN CORPUSCULAR HEMOGLOBIN 23.4 pg (27.0-31.0); MEAN CORPUSCULAR HGB CONC 30.7 g/dL (32.0-36.0); MEAN CORPUSCULAR VOLUME 76.2 fL (81.0-99.0); MONOCYTES # (AUTO) 0.5 10^3/uL (0.0-1.0); MONOCYTES % (AUTO) 2.4 %; NEUTROPHILS % (AUTO) 74.9 %; PLT - PLATELET COUNT 323 10^3/uL (130-450); RED BLOOD COUNT 4.83 10^6/uL (4.20-5.40); RED CELL DISTRIBUTION WIDTH 18.9 % (12.0-15.0)
[2022-02-26] MEDS ORDERED: LABETALOL 20 MG/4 ML SYRINGE IVP STA ×2 (03:22→04:08)
[2022-02-26 03:23] LABS: ALBUMIN 5.3 g/dL (3.2-5.5); ALBUMIN/GLOBULIN RATIO 1.6 (1.0-2.2); BILIRUBIN,TOTAL 0.9 mg/dL (0.2-1.0); CALCIUM 9.8 mg/dL (8.5-10.3); CREATININE 0.8 mg/dL (0.4-1.0); POTASSIUM 3.1 mmol/L (3.5-5.0); TOTAL PROTEIN 8.6 g/dL (6.7-8.2)
[2022-02-26] MEDS ORDERED: DROPERIDOL 5 MG/2 ML VIAL IVP STA (03:35)
[2022-02-26 03:57] LABS: BILIRUBIN,URINE NEGATIVE (NEGATIVE); GLUCOSE, URINE (UA) 500 mg/dL (NEGATIVE); KETONES,URINE (UA) 15 mg/dL (NEGATIVE); LEUKOCYTE ESTERASE, URINE NEGATIVE (NEGATIVE); NITRITE,URINE NEGATIVE (NEGATIVE); OCCULT BLOOD,URINE MODERATE (NEGATIVE); PROTEIN,URINE 100 mg/dL (NEGATIVE); UROBILINOGEN,URINE 0.2 (NORMAL) E.U./dL (NORMAL)
[2022-02-26 04:04] LABS: BACTERIA,URINE Rare /HPF (None Seen); CLARITY,URINE CLEAR (CLEAR); RBC,URINE 0-5 /HPF (0-5); SQUAMOUS EPITHELIAL CELL,UR FEW Squamous (<= Few); WBC,URINE 0-3 /HPF (0-5)
[2022-02-26] MEDS ORDERED: METOPROLOL SUCCINATE 50 MG TABLET PO STA (05:35)
[2022-02-26 06:03] VITALS: BP 167/114
== END 2022-02-26 06:01 | disposition home or self-care (01) ==
LOC: EDUNIT# → ED 02:42
DX: R11.2 Nausea with vomiting, unspecified (principal); Z87.891 Personal history of nicotine dependence; Z66 Do not resuscitate
CPT/HCPCS: 36415; 80053; 81001; 83690; 85025; 93005; 96374; 96375; 96376; 99282; 99285; A9270; J2765; 81003; 87086

== ENCOUNTER 2022-03-07 14:20 | Outpatient (CLI) | payer MEDICARE, OTHER ==
--- NOTE | 2022-03-08 10:38 | Ultrasound Report ---
PROCEDURE: Abdomen Limited INDICATIONS: ABD PAIN TECHNIQUE: Real-time scanning was performed of the abdominal and retroperitoneal organs, with image documentatio n. COMPARISON: None. FINDINGS: Liver: The liver measures 17.8 cm in length and demonstrates increased echotexture. Gallbladder: Gall bladder wall measures 2.6 mm in diameter. No stones, sludge, pericholecystic fluid, or sonographic Stevens sign. Common tail artifact is noted suggesting adenomyomatosis. Biliary ducts: Intrahepatic bile ducts are non-dilated. Extrahepatic bile duct caliber measures 4.2 mm. Normal is 6-7 mm or less in diameter, or 10 mm or less post-cholecystectomy. Pancreas: Visualized portions of the pancreas are sonographically normal. Spleen: Spleen is normal in size and homogeneous in echotexture. Kidneys: Right kidney measures 10.1 cm long. No hydronephrosis or nephrolithiasis. No solid masses. Aorta: Visualized aorta is normal in caliber at less than 3 cm. Iliacs: Proximal common iliac arteries are normal in caliber at less than 2.5 cm. IVC: Intrahepatic inferior vena cava is patent. Miscellaneous: No free abdominal fluid. IMPRESSION: 1. Increased hepatic echogenicity suggesting hepatic steatosis although other sources of hepatocellul ar dysfunction cannot be excluded. 2. Sonographic findings suggesting adenomyomatosis. No discrete findings to suggest acute cholecystit is or choledocholithiasis. Reviewed by: Lexie Velazquez MD on 03/07/2022 5:39 PM PDT Approved by: Lexie Velazquez MD on 03/07/2022 5:39 PM PDT Station ID: [id number]
== END 2022-03-07 14:21 | disposition home or self-care (01) ==
LOC: DI 14:20
PROVIDERS: ATTEND Surgery
DX: R10.9 Unspecified abdominal pain (principal)

== ENCOUNTER 2023-09-12 07:03 | Outpatient (CLI) | payer MEDICARE, OTHER | END 2023-09-12 23:59 | disposition critical access hospital (66) | LOC: EMS 07:03 | DX: R10.32 Left lower quadrant pain (principal); R11.0 Nausea; R63.0 Anorexia; R19.5 Other fecal abnormalities | CPT/HCPCS: A0425; A0427 ==

== ENCOUNTER 2023-09-12 07:33 | Emergency (ER) | payer MEDICARE, OTHER ==
[2023-09-12] MEDS ORDERED: ONDANSETRON 4 MG/2 ML VIAL IVP STA (08:22)
[2023-09-12] MEDS ORDERED: MORPHINE 2 MG/ML CARPUJECT IVP STA (08:22)
[2023-09-12] MEDS ORDERED: SODIUM CHLORIDE 0.9% 1,000 ML IV STA ×2 (08:22→12:08)
[2023-09-12 08:50] LABS: BILIRUBIN,URINE NEGATIVE (NEGATIVE); GLUCOSE, URINE (UA) 250 mg/dL (NEGATIVE); KETONES,URINE (UA) NEGATIVE (NEGATIVE); LEUKOCYTE ESTERASE, URINE NEGATIVE (NEGATIVE); NITRITE,URINE NEGATIVE (NEGATIVE); OCCULT BLOOD,URINE SMALL (NEGATIVE); PROTEIN,URINE TRACE mg/dL (NEGATIVE); UROBILINOGEN,URINE 0.2 (NORMAL) E.U./dL (NORMAL)
[2023-09-12 08:53] LABS: CLARITY,URINE CLEAR (CLEAR)
[2023-09-12 08:59] LABS: BACTERIA,URINE Rare /HPF (None Seen); RBC,URINE 0-5 /HPF (0-5); SQUAMOUS EPITHELIAL CELL,UR MOD Squamous (<= Few); WBC,URINE 0-3 /HPF (0-5)
[2023-09-12] MEDS ORDERED: HYDROmorphone 1 MG/ML CARPUJECT IVP STA (09:16)
[2023-09-12] MEDS ORDERED: METOCLOPRAMIDE 10 MG/2 ML VIAL IVP STA (09:51)
[2023-09-12 10:00] LABS: BASOPHILS % (AUTO) 0.2 %; EOSINOPHILS % (AUTO) 0.1 %; HCT - HEMATOCRIT 34.1 % (37.0-47.0); HGB - HEMOGLOBIN 11.5 g/dL (12.0-16.0); LYMPHOCYTES % (AUTO) 36.2 %; MEAN CORPUSCULAR HEMOGLOBIN 29.1 pg (27.0-31.0); MEAN CORPUSCULAR HGB CONC 33.7 g/dL (32.0-36.0); MEAN CORPUSCULAR VOLUME 86.3 fL (81.0-99.0); MEAN PLATELET VOLUME 10.7 fL (7.9-10.8); MONOCYTES # (AUTO) 0.7 10^3/uL (0.0-1.0); MONOCYTES % (AUTO) 4.1 %; NEUTROPHILS # (AUTO) 9.7 10^3/uL (1.5-6.6); NEUTROPHILS % (AUTO) 58.9 %; PLT - PLATELET COUNT 212 10^3/uL (130-450); RED BLOOD COUNT 3.95 10^6/uL (4.20-5.40); RED CELL DISTRIBUTION WIDTH 14.6 % (12.0-15.0); WHITE BLOOD COUNT 16.5 x10^3/uL (4.8-10.8)
[2023-09-12 10:17] LABS: ALBUMIN 3.4 g/dL (3.2-5.5); ALBUMIN/GLOBULIN RATIO 1.8 (1.0-2.2); BILIRUBIN,TOTAL 0.5 mg/dL (0.2-1.0); CALCIUM 7.9 mg/dL (8.5-10.3); CREATININE 0.6 mg/dL (0.6-1.3); POTASSIUM 2.9 mmol/L (3.5-4.5); TOTAL PROTEIN 5.3 g/dL (6.4-8.9)
--- NOTE | 2023-09-12 11:38 | CT Report ---
PROCEDURE: ABDOMEN/PELVIS W INDICATIONS: lower abd pain CONTRAST: Intravenous 100ml omni 300 TECHNIQUE: After the administration of IV contrast, 5 mm thick sections acquired from the diaphragms to the symp hysis. 5 mm thick coronal and sagittal reformats were acquired. For radiation dose reduction, the f ollowing was used: automated exposure control, adjustment of mA and/or kV according to patient size. COMPARISON: 06/24/2023 FINDINGS: Image quality: Excellent. Lung bases and heart: There is a right posterior hemidiaphragmatic hernia containing fat, measuring 3 5 mm diameter, as before. Liver: No solid mass. Gallbladder and biliary tree: Gallbladder is mildly distended. No biliary ductal dilatation is presen t. Spleen: No splenomegaly. Pancreas: No pancreatic ductal dilation. Adrenals: No adrenal nodule. Kidneys and ureters: No hydronephrosis. No renal cystic lesion which requires follow up. No solid mas s. Bowel and peritoneum: No bowel distension. Partial colectomy. No pathologic free fluid. Appendix is n ot seen. No evidence of appendicitis. Lymph nodes: No central or retroperitoneal adenopathy. Vessels: No infrarenal aortic aneurysm. PELVIS Reproductive organs: Unremarkable. Bladder: No abnormal wall thickening, accounting for underdistension. Pelvic lymph nodes: No pelvic adenopathy by size criteria. Bones: No aggressive osseous abnormality. Other: No significant ventral or inguinal hernia. IMPRESSION: 1. No acute process. Reviewed by: Nereyda Long MD on 09/12/2023 11:37 AM [facility] Approved by: Nereyda Long MD on 09/12/2023 11:37 AM [facility] Station ID: [id number]
[2023-09-12 11:47] LABS: HCT - HEMATOCRIT 34.4 % (37.0-47.0); HGB - HEMOGLOBIN 11.5 g/dL (12.0-16.0)
--- NOTE | 2023-09-12 12:01 | ED Physician Documentation ---
PD HPI ABD PAIN - Stated complaint Stated Complaint: LOSS OF APPETITE/NAUSEA - Chief complaint Chief Complaint: Abd Pain - History obtained from History obtained from: Patient - Additional information Additional information: Patient is a 68-year-old female presenting for evaluation of left lower quadrant abdominal pain that has been present for the past 4 days with associated nausea and vomiting. She has a complicated history with prior colon resection related to perforated diverticulitis with colostomy and then a subsequent takedown. She has recently been seeing Dr. Hernández regarding episodes of pain that she has been having and actually saw him August 31 in his office. She was scheduled to have an outpatient CT scan but states that the pain became more severe today. She reports having 3 bowel movements this morning that were dark. She does not take a blood thinner use NSAIDs. Denies prior history of GI bleeds. No hematemesis. No fever, chest pain, shortness of air. No dysuria or hematuria. Review of Systems Constitutional: denies: Fever Cardiac: denies: Chest pain / pressure Respiratory: denies: Dyspnea GI: reports: Abdominal Pain, Nausea, Vomiting, Bloody / black stool. 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 : None HEENT: None Psych: None Musculoskeletal: None Derm: None - Past Surgical History Past Surgical History: Yes General: Bowel surgery - Present Medications Home Medications: Ambulatory Orders Medication Instructions Recorded Confirmed Metoclopramide [Reglan] 10 mg PO Q6H PRN #20 tablet 02/11/21 03/27/21 Omeprazole Magnesium 20 mg PO PRN PRN 02/11/21 03/27/21 Prochlorperazine Maleate 10 mg PO PRN PRN 02/11/21 03/27/21 HYDROcod/ACETAM 5/325 [Beverly 5/325] 1 - 2 tab PO Q6H PRN #20 tablet 03/27/21 Metoprolol Tartrate [Lopressor] 1 tab PO BID 03/27/21 03/27/21 Wheelchair 1 unit TD ONCE #1 03/27/21 Ciprofloxacin HCl [Cipro] 500 mg PO BID #14 tablet 07/23/21 Promethazine HCl [Promethazine HCl 25 mg RC TID #30 supp.rect 07/23/21 supp] metroNIDAZOLE [Flagyl] 500 mg PO TID #21 tablet 07/23/21 Alprazolam [Xanax] 0.5 mg PO ONCE #1 tablet 10/12/21 Digestive 8/L.acidoph/Pectin 2 each PO DAILY 15 Days #30 tablet 11/21/21 [Digestive Enzymes Tablet] Docusate Sodium 100Mg Capsule 100 mg PO DAILY #20 cap 11/21/21 [Colace 100Mg Capsule] HYDROcod/ACETAM 5/325 [Beverly 5/325] 1 ea PO Q6H PRN #15 tablet 11/21/21 Ondansetron Odt [Zofran] 4 mg TL Q6H PRN #10 tablet 11/21/21 Dicyclomine [Bentyl] 1 - 2 tab PO QID PRN #20 cap 01/08/22 LORazepam [Ativan] 1 mg PO TID PRN #4 tablet 01/08/22 Oxycodone HCl/Acetaminophen 1 - 2 each PO Q6H PRN #14 tablet 01/08/22 [Percocet 5-325 mg Tablet] Metoclopramide [Reglan] 10 mg PO Q6H PRN #20 tablet 02/26/22 Metoclopramide [Reglan] 10 mg PO Q6H PRN #10 tablet 09/12/23 Ondansetron Odt [Zofran] 4 mg TL Q6H PRN #10 tablet 09/12/23 - Allergies Allergies/Adverse Reactions: Allergies Allergy/AdvReac Type Severity Reaction Status Date / Time Penicillins Allergy Unknown Verified 06/24/23 12:06 - Social History Does the pt smoke?: No Smoking Status: Never smoker Does the pt drink ETOH?: Yes Does the pt have substance abuse?: No - Immunizations Immunizations are current?: Yes - POLST Patient has POLST: Yes POLST Status: DNR PD ED PE NORMAL - General General: Alert and oriented X 3, Other (Anxious appearing, dry heaving) - HEENT HEENT: Atraumatic - Neck Neck: Supple, no meningeal sign - Cardiac Cardiac: RRR, No murmur - Respiratory Respiratory: No respiratory distress, Clear bilaterally - Abdomen Abdomen: Normal bowel sounds, Soft, Non distended, Other (Well-healed midline abdominal incision, lower abdominal tenderness) - Rectal Rectal: Other (Chaperoned by Gama, dark-colored stools, no tenderness) Results - Vitals Vitals: Vital Signs - 24 hr 09/12/23 09/12/23 09/12/23 07:44 09:52 11:55 Temperature 36.1 C L Heart Rate 98 99 78 Respiratory 20 25 H 18 Rate Blood Pressure 123/105 H 131/95 H 137/98 H O2 Saturation 100 100 100 09/12/23 09/12/23 09/12/23 14:13 14:54 15:10 Temperature Heart Rate 81 97 97 Respiratory 18 28 H 28 H Rate Blood Pressure 89/74 L 159/112 H 159/112 H O2 Saturation 98 100 100 Oxygen O2 Source Room air - Labs Labs: Microbiology 09/12/23 08:02 Occult Blood - Final Stool Laboratory Tests 09/12/23 09/12/23 09/12/23 08:00 09:53 09:53 WBC 16.5 H RBC 3.95 L Hgb 11.5 L Hct 34.1 L MCV 86.3 MCH 29.1 MCHC 33.7 RDW 14.6 Plt Count 212 MPV 10.7 Neut # (Auto) 9.7 H Lymph # (Auto) 6.0 H [place] # (Auto) 0.7 Eos # (Auto) 0.0 Baso # (Auto) 0.0 Absolute Nucleated RBC 0.00 Nucleated RBC % 0.0 Sodium 132 L Potassium 2.9 L Chloride 102 Carbon Dioxide 23 Anion Gap 7.0 BUN 55 H Creatinine 0.6 Estimated GFR (MDRD) 99 Glucose 143 H Calcium 7.9 L Magnesium Total Bilirubin 0.5 AST 22 ALT 35 Alkaline Phosphatase 46 Total Protein 5.3 L Albumin 3.4 Globulin 1.9 L Albumin/Globulin Ratio 1.8 Lipase 11 Urine Color YELLOW Urine Clarity CLEAR Urine pH 6.0 Ur Specific [place] 1.010 Urine Protein TRACE Urine Glucose (UA) 250 H Urine Ketones NEGATIVE Urine Occult Blood SMALL H Urine Nitrite NEGATIVE Urine Bilirubin NEGATIVE Urine Urobilinogen 0.2 (NORMAL) Ur Leukocyte Esterase NEGATIVE Urine RBC 0-5 Urine WBC 0-3 Ur Squamous Epith Cells MOD Squamous H Urine Bacteria Rare Ur Microscopic Review INDICATED Urine Culture Comments NOT INDICATED Blood Type Antibody Screen 09/12/23 09/12/23 09/12/23 09:53 09:53 11:43 WBC RBC Hgb 11.5 L Hct 34.4 L MCV MCH MCHC RDW Plt Count MPV Neut # (Auto) Lymph # (Auto) [place] # (Auto) Eos # (Auto) Baso # (Auto) Absolute Nucleated RBC Nucleated RBC % Sodium Potassium Chloride Carbon Dioxide Anion Gap BUN Creatinine Estimated GFR (MDRD) Glucose Calcium Magnesium 1.6 L Total Bilirubin AST ALT Alkaline Phosphatase Total Protein Albumin Globulin Albumin/Globulin Ratio Lipase Urine Color Urine Clarity Urine pH Ur Specific [place] Urine Protein Urine Glucose (UA) Urine Ketones Urine Occult Blood Urine Nitrite Urine Bilirubin Urine Urobilinogen Ur Leukocyte Esterase Urine RBC Urine WBC Ur Squamous Epith Cells Urine Bacteria Ur Microscopic Review Urine Culture Comments Blood Type O NEGATIVE Antibody Screen NEGATIVE PD Medical Decision Making - ED course Complexity details: reviewed results, re-evaluated patient, d/w patient ED course: Patient is a 68-year-old female presenting for evaluation of lower abdominal pain with nausea and vomiting and dark-colored stools today. Has extensive abdominal surgery history. Lower abdominal tenderness noted but no peritonitis. Labs reviewed including CBC, chemistries. Mild leukocytosis which patient chronically has. Hypokalemia with potassium of 2.9. Patient was given IV fluids, Zofran, morphine and Dilaudid for pain. She additionally required Reglan and droperidol to control her nausea. Stool is dark-colored and heme positive. No further bowel movement since she has been here and hemoglobin has been stable at 11.5 over a few hours. CT scan was obtained without any significant findings. Patient was able to tolerate p.o. I discussed with her surgeon Dr. Hernández who will follow-up with the patient as an outpatient. Patient is feeling much better here. Counseled on avoiding cannabis as this may be exacerbating her symptoms. Patient counseled on concerning symptoms to return for. 1201 - Discussed with Dr. Hernández Including heme positive stools. Patient can be discharged home. Would still recommend that she get her outpatient CT scan done with oral contrast as this may check for a functional blockage versus a structural blockage which is what we would be looking for here in the ER. 1208 - Patient reports still having ongoing nausea. On review of her history it appears that she has received droperidol with improvement in the past. Patient does admit to cannabis use but states that she does not use this very often. Will give additional fluids and a dose of droperidol. Departure - Departure Disposition: 01 Home, Self Care Clinical Impression: Nausea & vomiting, Lower abdominal pain, Hypokalemia Condition: Stable Instructions: ED Abdominal Pain Female Non-Specific Abdominal Pain, ED Nausea Vomiting Follow-Up: Wilbert Hernández MD [Provider Admit Priv/Credential] - Prescriptions: Metoclopramide [Reglan] 10 mg PO Q6H PRN #10 tablet PRN Reason: Nausea / Vomiting Ondansetron Odt [Zofran] 4 mg TL Q6H PRN #10 tablet PRN Reason: Nausea / Vomiting Comments: Please try to get your outpatient CT scan done as you were not able to drink the contrast today and we really need to to drink contrast in order to have the scan that Dr. Hernández is requesting. In the meanwhile would also recommend avoiding cannabis use as this may be making any of your symptoms worse. I sent prescriptions for antinausea medications to [facility] in [place]. Please make sure you have close follow-up with Dr. Hernández as well as your primary care provider. Forms: PCP List Discharge Date/Time: 09/12/23 15:09
[2023-09-12] MEDS ORDERED: DROPERIDOL 5 MG/2 ML VIAL IVP STA (12:07)
[2023-09-12] MEDS: POTASSIUM CHLOR 10 MEQ/100 ML 10 MEQ/100 ML BAG IV SCH ×2 (12:40→13:38)
[2023-09-12] MEDS ORDERED: MAGNESIUM SULFATE 2 GRAM 2 GM/50 ML BAG IV ONE (12:48)
[2023-09-12] MEDS ORDERED: POTASSIUM BICARB 25 MEQ TABLET PO ONE (12:48)
[2023-09-12] MEDS ORDERED: iohexoL-300 100 ML VIAL IVP ONE (13:07)
[2023-09-12] MEDS ORDERED: DIATRIZOATE MEGLU/DIATRIZO SOD 30 ML BOTTLE PO ONE (13:11)
[2023-09-12 14:56] VITALS: BP 159/112; O2SAT 100
== END 2023-09-12 15:09 | disposition home or self-care (01) ==
LOC: EDUNIT# → ED 07:33
DX: R10.32 Left lower quadrant pain (principal); R11.2 Nausea with vomiting, unspecified; E87.6 Hypokalemia; I10 Essential (primary) hypertension
CPT/HCPCS: 36415; 74177; 80053; 81001; 82272; 83690; 83735; 85014; 85018; 85025; 86850; 86900; 86901; 96365; 96366; 96375; 99284; 99285; A9270; J1170; J2765; Q9967; 81003; 87086

== ENCOUNTER 2023-09-15 23:11 | Outpatient (CLI) | payer MEDICARE, OTHER | END 2023-09-15 23:12 | disposition critical access hospital (66) | LOC: EMS 23:11 | DX: R10.12 Left upper quadrant pain (principal); R10.32 Left lower quadrant pain; R30.9 Painful micturition, unspecified; R19.5 Other fecal abnormalities; R06.4 Hyperventilation | CPT/HCPCS: A0425; A0429 ==

== ENCOUNTER 2023-09-16 00:12 | Inpatient (IN) | payer MEDICARE, OTHER ==
--- NOTE | 2023-09-16 00:42 | ED Physician Documentation ---
History of Present Illness - Stated complaint Stated Complaint: L FLANK PX - Chief complaint Chief Complaint: Abd Pain - History obtained from History obtained from: Patient, EMS - Additonal information Additional information: 68-year-old female with complicated surgical history including perforated diverticulitis ostomy placement, subsequent ostomy takedown, anxiety, cannabis use presents by EMS from home for abdominal pain, generalized weakness, anxiety, and continued black tarry stools. Patient was seen in the emergency department 4 days prior for same, at that time workup was significant for heme positive stools, hemoglobin 11.5, potassium 2.9, unremarkable CT scan of the abdomen and pelvis. At that time patient was given numerous nausea and pain medications, general surgery was consulted, who recommended discharge home and outpatient follow-up. Patient states that she normally feels better after visiting the emergency department within 1 or 2 days, but she is continue to feel poorly and in pain. She states she feels "full of gas" but when she tries to pass the gas it is painful. She states that her stools are still black and she feels generally weak and gets short of breath with even minor exertion. She denies use of blood thinners, aspirin, alcohol, NSAIDs. Patient also reports significant anxiety, she states that she lives alone and is currently not able to function by herself in her current health Review of Systems Constitutional: denies: Fever, Chills Cardiac: denies: Chest pain / pressure, Palpitations, Calf pain Respiratory: reports: Dyspnea. denies: Cough, Wheezing GI: reports: Abdominal Pain, Nausea, Diarrhea, Bloody / black stool. 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 : None HEENT: None Psych: None Musculoskeletal: None Derm: None - Past Surgical History Past Surgical History: Yes General: Bowel surgery - Present Medications Home Medications: Ambulatory Orders Medication Instructions Recorded Confirmed Metoprolol Tartrate [Lopressor] 1 tab PO BID 03/27/21 09/16/23 Metoclopramide [Reglan] 10 mg PO Q6H PRN #10 tablet 12/13/23 Ondansetron Odt [Zofran] 4 mg TL Q6H PRN #10 tablet 09/12/23 Escitalopram Oxalate 15 mg PO DAILY 09/16/23 09/16/23 - Allergies Allergies/Adverse Reactions: Allergies Allergy/AdvReac Type Severity Reaction Status Date / Time Penicillins Allergy Unknown Verified 09/16/23 00:31 - Social History Does the pt smoke?: No Smoking Status: Never smoker Does the pt drink ETOH?: Yes Does the pt have substance abuse?: No - Immunizations Immunizations are current?: Yes - POLST Patient has POLST: Yes POLST Status: DNR PD ED PE NORMAL - Vitals Vital signs reviewed: Yes - General General: Alert and oriented X 3, No acute distress, Other (Appears chronically unwell, older than stated age) - HEENT HEENT: Atraumatic - Cardiac Cardiac: RRR, Strong equal pulses - Respiratory Respiratory: No respiratory distress, Clear bilaterally - Abdomen Abdomen: Soft, Non distended, Other (no reproducible tenderness when patient distracted) - Derm Derm: Warm and dry, No rash, Other (pale) - Extremities Extremities: No deformity, No tenderness to palpate - Neuro Neuro: Alert and oriented X 3, dry talc racker 2-12 intact, No motor deficit, Normal speech Results - Vitals Vitals: Vital Signs - 24 hr 09/16/23 09/16/23 09/16/23 00:16 00:30 02:00 Temperature 36 C L Heart Rate 69 75 78 Heart Rate [ Apical] Respiratory 16 18 22 Rate Blood Pressure 116/86 H 104/72 102/68 Blood Pressure [Right Brachial artery] O2 Saturation 100 100 99 09/16/23 09/16/23 09/16/23 03:31 03:47 04:00 Temperature 36.8 C 36.7 C Heart Rate 76 75 Heart Rate [ 76 76 Apical] Respiratory 17 18 15 Rate Blood Pressure 90/62 89/68 L Blood Pressure 90/62 87/65 L [Right Brachial artery] O2 Saturation 97 97 98 09/16/23 09/16/23 09/16/23 04:30 06:00 06:02 Temperature 36.8 C 36.8 C Heart Rate 73 75 Heart Rate [ 75 Apical] Respiratory 13 12 12 Rate Blood Pressure 92/61 106/68 Blood Pressure 106/68 [Right Brachial artery] O2 Saturation 95 98 98 Oxygen O2 Source Room air - Labs Labs: Laboratory Tests 09/16/23 09/16/23 09/16/23 00:56 00:56 00:56 WBC 15.3 H RBC 1.74 L Hgb 5.1 L* Hct 15.6 L* MCV 89.7 MCH 29.3 MCHC 32.7 RDW 15.8 H Plt Count 259 MPV 11.5 H Neut # (Auto) 11.3 H Lymph # (Auto) 3.2 [place] # (Auto) 0.5 Eos # (Auto) 0.0 Baso # (Auto) 0.0 Absolute Nucleated RBC 0.00 Nucleated RBC % 0.0 PT INR APTT Sodium 130 L Potassium 3.2 L Chloride 97 L Carbon Dioxide 23 Anion Gap 10.0 BUN 16 Creatinine 0.7 Estimated GFR (MDRD) 83 L Glucose 134 H Calcium 8.4 L Magnesium 1.6 L Total Bilirubin 0.3 AST 18 ALT 16 Alkaline Phosphatase 37 L Total Protein 5.2 L Albumin 3.3 Globulin 1.9 L Albumin/Globulin Ratio 1.7 Lipase 23 Blood Type O NEGATIVE Antibody Screen NEGATIVE Crossmatch IS Only See Detail 09/16/23 00:56 WBC RBC Hgb Hct MCV MCH MCHC RDW Plt Count MPV Neut # (Auto) Lymph # (Auto) [place] # (Auto) Eos # (Auto) Baso # (Auto) Absolute Nucleated RBC Nucleated RBC % PT 17.0 H INR 1.6 H APTT 25.0 Sodium Potassium Chloride Carbon Dioxide Anion Gap BUN Creatinine Estimated GFR (MDRD) Glucose Calcium Magnesium Total Bilirubin AST ALT Alkaline Phosphatase Total Protein Albumin Globulin Albumin/Globulin Ratio Lipase Blood Type Antibody Screen Crossmatch IS Only PD Medical Decision Making - ED course Complexity details: reviewed old records, reviewed results, re-evaluated patient, considered differential, d/w patient, d/w customer support consultant ED course: Patient presenting again for abdominal pain and black stools. Hemodynamically stable. EMS reports that the patient was extremely anxious when they arrived to her home, however she is much more calm and states that she is no longer anxious. Tarry stool noted around rectum, will not repeat guaiac as it was positive several days ago. Laboratory work significant for hemoglobin 5.1, it was previously 11.54 days prior. Type and screen sent to lab and patient informed of need for blood transfusion necessity. I spoke to on-call surgeon Dr. Campbell, who agreed to see the patient and potentially perform endoscopy. Protonix bolus and drip ordered. I was informed by nursing staff that patient did have black bowel movement while in the emergency department. Patient remains hemodynamically stable and has blood products transfusing at this time. Repeat H&H scheduled for later this morning. At this time we do not have any inpatient beds and patient will be ob served in the emergency department. Hope is that discharges on the floor will allow for patient to have a room. Care of patient signed to oncoming ER provider. - Critical Care Time(min): 41 Comments: Profound anemia requiring blood transfusion, surgical consult, frequent hemodyamic reassessments. Time Includes: Direct patient care, Review records, Reassess patient, Document care, Coordinate care, Medical consult, Family consult for tx dec, See progress note Data interpretation: Labs, See progress note Departure - Departure Clinical Impression: Anemia requiring transfusions, Generalized weakness GI bleed Qualifiers: GI bleed type/associated pathology: unspecified gastrointestinal hemorrhage type Qualified Code(s): K92.2 - Gastrointestinal hemorrhage, unspecified Condition: Serious Forms: PCP List
[2023-09-16] MEDS ORDERED: DROPERIDOL 5 MG/2 ML VIAL IVP STA (00:45)
[2023-09-16] MEDS ORDERED: SODIUM CHLORIDE 0.9% 1,000 ML IV STA ×2 (00:45→07:38)
[2023-09-16 01:07] LABS: BASOPHILS % (AUTO) 0.2 %; EOSINOPHILS % (AUTO) 0.1 %; LYMPHOCYTES # (AUTO) 3.2 10^3/uL (1.5-3.5); MEAN CORPUSCULAR HEMOGLOBIN 29.3 pg (27.0-31.0); MEAN CORPUSCULAR HGB CONC 32.7 g/dL (32.0-36.0); MEAN CORPUSCULAR VOLUME 89.7 fL (81.0-99.0); MEAN PLATELET VOLUME 11.5 fL (7.9-10.8); MONOCYTES # (AUTO) 0.5 10^3/uL (0.0-1.0); MONOCYTES % (AUTO) 3.2 %; NEUTROPHILS # (AUTO) 11.3 10^3/uL (1.5-6.6); NEUTROPHILS % (AUTO) 74.1 %; PLT - PLATELET COUNT 259 10^3/uL (130-450); RED BLOOD COUNT 1.74 10^6/uL (4.20-5.40); RED CELL DISTRIBUTION WIDTH 15.8 % (12.0-15.0); WHITE BLOOD COUNT 15.3 x10^3/uL (4.8-10.8)
[2023-09-16 01:12] LABS: HGB - HEMOGLOBIN 5.1 g/dL (12.0-16.0)
[2023-09-16 01:22] LABS: ALBUMIN 3.3 g/dL (3.2-5.5); ALBUMIN/GLOBULIN RATIO 1.7 (1.0-2.2); BILIRUBIN,TOTAL 0.3 mg/dL (0.2-1.0); CALCIUM 8.4 mg/dL (8.5-10.3); CREATININE 0.7 mg/dL (0.6-1.3); MAGNESIUM 1.6 mg/dL (1.7-2.3); POTASSIUM 3.2 mmol/L (3.5-4.5); TOTAL PROTEIN 5.2 g/dL (6.4-8.9)
[2023-09-16 01:27] LABS: HCT - HEMATOCRIT 15.6 % (37.0-47.0)
[2023-09-16] MEDS ORDERED: PANTOPRAZOLE 40 MG VIAL IV STA (01:28)
[2023-09-16] MEDS ORDERED: PANTOPRAZOLE 80 MG in SODIUM CHLORIDE 0.9% 100ML 100 ML IV STA (01:28)
[2023-09-16] MEDS ORDERED: PANTOPRAZOLE 40 MG VIAL ONE (01:41)
[2023-09-16] MEDS ORDERED: MORPHINE 2 MG/ML CARPUJECT IVP STA (02:14)
[2023-09-16 02:29] LABS: INR 1.6 (0.8-1.2)
[2023-09-16] MEDS ORDERED: POTASSIUM CHLORIDE 20 MEQ TABLET PO STA (02:57)
[2023-09-16] MEDS ORDERED: MAGNESIUM SULFATE 2 GRAM 2 GM/50 ML BAG IV ONE (02:57)
[2023-09-16] MEDS ORDERED: diphenhydrAMINE INJ 50 MG/ML VIAL IVP STA (07:07)
[2023-09-16] MEDS ORDERED: HYDROmorphone 0.5 MG/0.5 ML SYRINGE IVP STA (07:39)
--- NOTE | 2023-09-16 10:57 | CONSULTATION NOTE ---
Referring Provider Consult Date: 09/16/23 Chief Complaint - Chief Complaint Chief Complaint: several dark loose stools few days ago and not feeling well today. History of Present Illness - History Obtained From Records Reviewed: yes History obtained from: pt Exam Limitations: none - History of Present Illness HPI Comment/Other: history waxing and waning chronic n/v for years. history abdominal surgery with colectomy years ago and bloating/ anastomotic stricture. she state some bloating and cramping few days ago. she states she had been scheduled for an outpt ct scan and colonoscopy at [facility] in october. she denies nsaid use, gastric burning, heart burn. seen in ED and found to be very anemic. blood has been ordered and given. no repeat h/h at this time. no hospital beds available at this time. 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 Dad: of pulmonary fibrosis. Sister had leukemia, Survived. Lives near her. No children Living Situation: Alone Social History Notes: The patient is originally from [place], [place] but lived in [place] during her early years. She went to college for a short time, got , got , never got again, she has no children. 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 She previously lived in [place], [place] and [place]. She currently lives in [place], [place]. She lives alone. She does not smoke but did previously smoke cigarettes quit 10 years ago. She denies any illicit drug use. She states that she occasionally drinks a glass of wine. - Substance History Use: Uses substance without health or social issues: NONE - POLST Patient has POLST: Yes POLST Status: DNR Meds/Allgy - Home Medications Home Medications: Ambulatory Orders Medication Instructions Recorded Confirmed Metoprolol Tartrate [Lopressor] 1 tab PO BID 03/27/21 09/16/23 Metoclopramide [Reglan] 10 mg PO Q6H PRN #10 tablet 09/12/23 Ondansetron Odt [Zofran] 4 mg TL Q6H PRN #10 tablet 09/12/23 Escitalopram Oxalate 15 mg PO DAILY 09/16/23 09/16/23 - Allergies Allergies/Adverse Reactions: Allergies Allergy/AdvReac Type Severity Reaction Status Date / Time Penicillins Allergy Unknown Verified 09/16/23 00:31 Review of Systems - Other Findings Other Findings: 10 pt ros as above otherwise unremarkable she denies ugi symptoms and prior egd she has had several colonoscopies Exam - Vital Signs Reviewed Vital Signs: Yes Vital Signs: Vital Signs x48h Temp Pulse Pulse Resp BP BP Pulse Ox 09/16/23 10:18 36.5 C 76 16 113/76 95 09/16/23 09:40 76 14 108/68 93 09/16/23 08:46 36.0 C L 75 13 96/65 09/16/23 08:33 36.0 C L 75 17 96/65 92 09/16/23 08:27 36.0 C L 75 14 97/71 94 09/16/23 08:16 36.5 C 74 12 119/79 96 09/16/23 08:03 76 16 119/79 94 09/16/23 06:02 36.8 C 75 12 106/68 98 09/16/23 06:00 36.8 C 75 12 106/68 98 09/16/23 04:30 73 13 92/61 95 09/16/23 04:00 75 15 89/68 L 98 09/16/23 03:47 36.7 C 76 18 87/65 L 97 09/16/23 03:31 36.8 C 76 76 17 90/62 90/62 97 O2 Flow Rate 09/16/23 10:18 09/16/23 09:40 09/16/23 08:46 91 09/16/23 08:33 09/16/23 08:27 09/16/23 08:16 09/16/23 08:03 09/16/23 06:02 09/16/23 06:00 09/16/23 04:30 09/16/23 04:00 09/16/23 03:47 12/17/23 03:31 - Physical Exam General Appearance: positive: No acute distress, Alert Eyes Bilateral: positive: PERRL, No scleral icterus ENT: positive: No signs of dehydration Neck: positive: No JVD, Trachea midline Respiratory: positive: No respiratory distress Cardiovascular: positive: Regular rate & rhythm Abdomen: positive: Non-tender, No distention Neurologic/Psychiatric: positive: Oriented x3 Conclusion/Plan - Problem List (1) Anemia requiring transfusions Conclusion/Plan: agree with care and plan. ok to have clears. currently no bed available and she does not appear to be actively bleeding. most loose black stool was several days ago. consider egd tomorrow if she appears to still be bleeding and after labs improved ie h/h and k and bed available. if no beds available and if there is concern for active bleeding recommend trans prashanth - Lab Results Fish Bones: 09/16/23 00:56 09/16/23 00:56
--- NOTE | 2023-09-16 11:20 | ED Physician Documentation ---
ED Addendum - Addendum Addendum: 09/16/23 11:17 The patient remained stable. Her blood pressure was slightly soft at 90s systolic to 106 systolic. Her blood count had been 5.1 hemoglobin. She had received 1 unit of blood with a plan to get a repeat H&H. There was still some dark stool she says while here. Given the likelihood of still some persisting bleeding and with the hemoglobin at 5.1, I changed plan a little and transfused a second unit of blood and we will now repeat the hemoglobin and hematocrit. More likely to be above [address] Faye did come to the ER in consultation and would plan for scope and the patient if her appropriately indicated. We do have beds available after discussion with the nursing counselor supervisor and hospitalist on morning rounds. I will consult the hospitalist and talk with them about admitting the patient for further evaluation and treatment. Disposition: The patient is admitted to the hospital in stable condition Diagnosis: 1. Hemorrhagic anemia 2. GI bleeding 3. General weakness
[2023-09-16 11:33] LABS: HCT - HEMATOCRIT 21.2 % (37.0-47.0); HGB - HEMOGLOBIN 7.1 g/dL (12.0-16.0)
[2023-09-16] MEDS ORDERED: ONDANSETRON 4 MG/2 ML VIAL IVP PRN (12:36)
[2023-09-16] MEDS ORDERED: HYDROmorphone 0.5 MG/0.5 ML SYRINGE IVP PRN (12:36)
--- NOTE | 2023-09-16 12:47 | HISTORY & PHYSICAL EXAMINATION ---
Chief Complaint - Chief Complaint Chief Complaint: Black stool, abd pain, nausea, anxiety History of Present Illness - Admitted From Admitted From:: ED - History Obtained From History obtained from: ED provider and the patient - History of Present Illness HPI Comment/Other: This is a 68-year-old female with a history of partial colectomy w/ ostomy then ostomt take-down, anxiety and HTN. Patient presented to the ER 4 days ago with complaints of abdominal pain and nausea but no vomiting and having black bowel movements. She had guaiac test showing stool was heme positive, hemoglobin was 11. She had CT abdomen that showed her partial colectomy but nothing else was remarkable. She was discharged from the ER and told to have an outpatient workup for GI bleeding. The patient presented to the ER by EMS today because of continued abdominal pain and black bowel movements and she started to feel anxious and SOB. EMS said she was very anxious at the scene. In the ER, she was found to have hemoglobin 5.1, first blood pressure was normal. Her blood pressure was 96/65 at its lowest while in the ER. She has received 2 units PRBCs and hemoglobin has improved to 7.1 and blood pressure also improved to 116/79. The ED provider spoke to me about this patient. She has been seen by general surgeon while in the ER, who agreed she may need an EGD if there are signs of ongoing bleeding. The patient will be placed in Observation status to monitor and treat her GI blood loss and anemia. I spoke to the patient about her CODE BLUE wishes and she has desire to be DNR History - Past Medical History Cardiovascular: reports: Hypertension Respiratory: reports: None Neuro: reports: None Endocrine/Autoimmune: reports: None GI: reports: Other CLINICAL DIETITIAN: reports: None : reports: None HEENT: reports: None Psych: reports: None Musculoskeletal: reports: None Derm: reports: None MRSA Hx?: No - Past Surgical History General: reports: Bowel surgery - Family & Social History Family History: Mother: Hypertension, Sister: Cancer (Leukemia) Family History Comment/Other: Mom had high blood pressure, DM and at age 102. Dad: of pulmonary fibrosis. Sister had leukemia, Survived. Lives near her. No children Living arrangement: At home Living Situation: Alone Social History Notes: The patient is originally from [place], [place] but lived in [place] during her early years. She went to college for a short time, got , got , never got again, she has no children. 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 She previously lived in [place], [place]. She currently lives in [place], [place]. She lives alone. She does not smoke but did previously smoke cigarettes quit 10 years ago. She denies any illicit drug use. She states that she occasionally drinks a glass of wine. - Substance History Use: Uses substance without health or social issues: Alcohol - POLST Patient has POLST: Yes POLST Status: DNR Meds/Allgy - Home Medications Home Medications: Ambulatory Orders Medication Instructions Recorded Confirmed Metoprolol Tartrate [Lopressor] 1 tab PO BID 03/27/21 09/16/23 Metoclopramide [Reglan] 10 mg PO Q6H PRN #10 tablet 09/12/23 Ondansetron Odt [Zofran] 4 mg TL Q6H PRN #10 tablet 09/12/23 Escitalopram Oxalate 15 mg PO DAILY 09/16/23 09/16/23 - Allergies Allergies/Adverse Reactions: Allergies Allergy/AdvReac Type Severity Reaction Status Date / Time Penicillins Allergy Unknown Verified 09/16/23 00:31 Review of Systems - Constitutional Constitutional: reports: Fatigue - Respiratory Respiratory: reports: SOB with exertion - Gastrointestinal Gastrointestinal: reports: Abdominal pain, Black stools, Nausea - Psychiatric Psychiatric: reports: Anxiety - All Other Systems All Other Systems: reports: Reviewed and negative Exam - Vital Signs Vital Signs: Vital Signs x48h Temp Pulse Pulse Resp BP BP Pulse Ox 09/16/23 11:00 87 17 116/76 93 09/16/23 10:18 36.5 C 76 16 113/76 95 09/16/23 09:40 76 14 108/68 93 09/16/23 08:46 36.0 C L 75 13 96/65 09/16/23 08:33 36.0 C L 75 17 96/65 92 09/16/23 08:27 36.0 C L 75 14 97/71 94 09/16/23 08:16 36.5 C 74 12 119/79 96 09/16/23 08:03 76 16 119/79 94 09/16/23 06:02 36.8 C 75 12 106/68 98 09/16/23 06:00 36.8 C 75 12 106/68 98 O2 Flow Rate 09/16/23 11:00 09/16/23 10:18 09/16/23 09:40 09/16/23 08:46 91 09/16/23 08:33 09/16/23 08:27 09/16/23 08:16 09/16/23 08:03 09/16/23 06:02 09/16/23 06:00 - Physical Exam General Appearance: positive: No acute distress, Alert, Other (Disheveled. Cachectic (BMI is 19)) Eyes Bilateral: positive: EOMI, No lid inflammation ENT: positive: ENT inspection nml, No signs of dehydration Neck: positive: Nml inspection, No JVD Respiratory: positive: No respiratory distress, Breath sounds nml Cardiovascular: positive: Regular rate & rhythm, No murmur Abdomen: positive: Non-tender, No organomegaly, Nml bowel sounds, No distention Skin: positive: Warm, Dry, Pallor Extremities: positive: Non-tender, No pedal edema Neurologic/Psychiatric: positive: Oriented x3, CN's nml (2-12), Motor nml Conclusion/Plan - Problem List (1) Anemia due to GI blood loss Conclusion/Plan: She represented to the ER with hemoglobin of 5.1. She has continued black BMs. There is continued abdominal pain and nausea but no vomiting. Her CT abdomen was just done 4 days ago and was unremarkable, it was not repeated now Plan: Placed the patient in Observation status Begin empiric Protonix 40 mg IV twice daily Obtain orthostatic vital sign checks every shift Follow her hemoglobin every 8 hours, possible need for another transfusion if she drops below hemoglobin of 7 again Appreciate general surgery input. Will have general surgery do EGD if there is evidence of ongoing bleeding such as severe orthostasis or new drop of hemoglob in. (2) Melena Conclusion/Plan: The patient has had melena for the last 5 days now. Plan: Start empiric Protonix 40 mg IV twice daily Clear liquid diet will be started, this was okayed by general surgery Avoid aspirin and NSAIDs. She may need an EGD if there is signs of ongoing bleeding such as orthostasis or a new drop in hemoglobin (3) Hx of essential hypertension Conclusion/Plan: Patient takes metoprolol tartrate 100 mg p.o. twice daily for her blood pressure control While in the ER she had a soft blood pressure, as low as 96/65 Plan: I will put her on the lowest dose possible of metoprolol to tartrate of 12.5 mg po twice daily, and add parameters for holding it (4) Anxiety Conclusion/Plan: Plan: We will continue her antianxiety med while she is here. - Lab Results Fish Bones: 09/16/23 11:30 09/16/23 00:56 - Diagnostic Imaging Results Diagnostic Imaging Results: positive: Final report reviewed
[2023-09-16] MEDS ORDERED: D5NS W/20 MEQ KCL 1,000 ML IV SCH (13:00)
[2023-09-16] MEDS: D5NS W/20 MEQ KCL 1,000 ML IV SCH (13:28)
[2023-09-16] MEDS: SODIUM CHLORIDE FLUSH 0.9% 10 ML SYRINGE IVP SCH (15:40)
[2023-09-16] MEDS: PANTOPRAZOLE 40 MG VIAL IVP SCH (20:51)
[2023-09-16] MEDS: METOPROLOL TARTRATE 25 MG TABLET PO SCH (20:51)
[2023-09-17] MEDS: SODIUM CHLORIDE FLUSH 0.9% 10 ML SYRINGE IVP SCH ×3 (00:30→19:38)
[2023-09-17] MEDS: D5NS W/20 MEQ KCL 1,000 ML IV SCH (01:47)
[2023-09-17] MEDS ORDERED: ESCITALOPRAM OXALATE 5 MG PO SCH (09:00)
[2023-09-17] MEDS ORDERED: PROPOFOL 200 MG/20 ML VIAL IVP ONE (09:50)
--- NOTE | 2023-09-17 10:36 | OPERATIVE REPORT ---
Operative Report - General Admit Date: 09/16/23 Procedure Date: 09/17/23 Planned Procedure: egd with biopsies Pre-Op Diagnosis: acute ugi bleed with melena Procedure Performed: egd with biopsies Post Op Diagnosis: [id number] portion duodenum with several healingshallow small ulcers. - Procedure Note Primary Surgeon: linette brice Anesthesia Technique: MAC Pathology: duodenum and antrum for celiac and h pylori Estimated Blood Loss (mL): 0 Indications: as above. Findings: as above. healing duodenal ulcers 2nd portion without bleeding Complications: none - Other Other Information/Narrative: ok to have soft gluten free diet
--- NOTE | 2023-09-17 11:02 | ANESTHESIA POST OP EVALUATION ---
Anesthesia Post Eval - Post Anesthesia Eval Vitals: Last Vital Signs Temp 37.1 C 09/17/23 10:30 Pulse 89 09/17/23 10:30 Resp 20 09/17/23 10:30 BP 112/77 09/17/23 10:30 Pulse Ox 94 09/17/23 10:30 O2 Flow Rate 91 09/16/23 08:46 CV Function Including HR & BP: Stable Pain Control: Satisfactory Nausea & Vomiting: Negative Mental Status: Baseline Respiratory Status: Airway Patent Hydration Status: Satisfactory Anesthesia Complications: None
--- NOTE | 2023-09-17 12:03 | ANESTHESIA ---
Pre-Anesthesia VS, & Labs - Diagnosis anemia, GI bleed, duodenal ulcer - Procedure EGD w biopsies Vital Signs: Temp Pulse Resp BP Pulse Ox O2 Flow Rate 37.1 C 89 20 112/77 94 91 09/17/23 10:30 09/17/23 10:30 09/17/23 10:30 09/17/23 10:30 09/17/23 10:30 09/16/23 08:46 Height: 5 ft 3 in Weight (kg): 49.5 kg Body Mass Index: 19.3 BMI Classification: Normal - NPO >8 hours - Is Patient ?: No - Lab Results Current Lab Results: Laboratory Tests 09/17/23 08:05: Hgb 7.1 L 09/17/23 01:00: Hgb 8.0 L 09/16/23 13:59: Hgb 7.2 L 09/16/23 11:30: Hgb 7.1 L, Hct 21.2 L 09/16/23 00:56: PT 17.0 H, INR 1.6 H, APTT 25.0 09/16/23 00:56: Sodium 130 L, Potassium 3.2 L, Chloride 97 L, Carbon Dioxide 23, Anion Gap 10.0, BUN 16, Creatinine 0.7, Estimated GFR (MDRD) 83 L, Glucose 134 H , Calcium 8.4 L, Magnesium 1.6 L, Total Bilirubin 0.3, AST 18, ALT 16, Alkaline Phosphatase 37 L, Total Protein 5.2 L, Albumin 3.3, Globulin 1.9 L, Albumin/Globulin Ratio 1.7, Lipase 23 09/16/23 00:56: WBC 15.3 H, RBC 1.74 L, Hgb 5.1 L*, Hct 15.6 L*, MCV 89.7, MCH 29.3, MCHC 32.7, RDW 15.8 H, Plt Count 259, MPV 11.5 H, Neut # (Auto) 11.3 H, Lymph # (Auto) 3.2, [place] # (Auto) 0.5, Eos # (Auto) 0.0, Baso # (Auto) 0.0, Absolute Nucleated RBC 0.00, Nucleated RBC % 0.0 09/16/23 00:56: Blood Type O NEGATIVE, Antibody Screen NEGATIVE, Crossmatch IS Only See Detail Lab results reviewed: Yes Fish Bones: 09/17/23 08:05 09/16/23 00:56 Home Medications and Allergies Home Medications: Ambulatory Orders Escitalopram Oxalate 15 mg PO DAILY 09/16/23 Active Medications Acetaminophen (Acetaminophen 325 Mg Tablet) 650 mg PO Q4HR PRN PRN Reason: Pain 1 to 4, or Fever Escitalopram Oxalate (Escitalopram 10 Mg Tablet) 15 mg PO DAILY [facility] Hydromorphone HCl (Hydromorphone 0.5 Mg/0.5 Ml Syringe) 0.5 mg IVP Q4H PRN PRN Reason: Pain 8 to 10 Potassium Chloride/Dextrose/Sod Cl (D5ns W/20 Meq Kcl) 1,000 mls @ 70 mls/hr IV .[id number] [facility] Last Infusion: 09/17/23 10:36 Dose: 70 mls/hr Metoprolol Tartrate (Metoprolol Tartrate 25 Mg Tablet) 12.5 mg PO BID [facility] Last Admin: 09/16/23 20:51 Dose: 12.5 mg Ondansetron HCl (Ondansetron 4 Mg/2 Ml Vial) 4 mg IVP Q6HR PRN PRN Reason: Nausea / Vomiting Pantoprazole Sodium (Pantoprazole 40 Mg Vial) 40 mg IVP BID [facility] Last Admin: 09/16/23 20:51 Dose: 40 mg Sodium Chloride (Sodium Chloride Flush 0.9% 10 Ml Syringe) 10 ml IVP PRN PRN PRN Reason: NEEDED PER PROVIDER ORDERS Sodium Chloride (Sodium Chloride Flush 0.9% 10 Ml Syringe) 10 ml IVP 0100,0900,1700 [facility] Last Admin: 09/17/23 10:05 Dose: Not Given Metoprolol Tartrate [Lopressor] 100 tab PO BID 03/27/21 Escitalopram Oxalate 15 mg PO DAILY 09/16/23 Allergies/Adverse Reactions: Allergies Allergy/AdvReac Type Severity Reaction Status Date / Time Penicillins Allergy Unknown Verified 09/16/23 00:31 Anes History & Medical History - Anesthetic History Anesthesia Complications: reports: No previous complications Family history of Anesthesia Complications: Denies Family history of Malignant Hyperthermia: Denies - Medical History Cardiovascular: reports: Hypertension Pulmonary: reports: None Gastrointestinal: reports: Other Urinary: reports: None Neuro: reports: None Musculoskeletal: reports: None Endocrine/Autoimmune: reports: None Blood Disorders: reports: None Skin: reports: None Smoking Status: Former smoker - Surgical History General: reports: Bowel surgery Exam General: Alert, Oriented x3, Cooperative Dental: WNL Mouth Openin Fingerbreadth Neck Mobility: Normal Thyromental Distance: 4-6 cm Respiratory: Lungs clear, Normal breath sounds, No respiratory distress Plan Anesthesia Type: Total IV Consent for Procedure(s) Verified and Reviewed: Yes Code Status: Attempt Resuscitation ASA classification: 2-Mild systemic disease Is this case an emergency?: No
[2023-09-17] MEDS: ESCITALOPRAM 10 MG TABLET PO SCH (12:23)
[2023-09-17] MEDS: METOPROLOL TARTRATE 25 MG TABLET PO SCH ×2 (12:24→20:58)
[2023-09-17] MEDS: PANTOPRAZOLE 40 MG VIAL IVP SCH ×2 (12:25→20:59)
[2023-09-17] MEDS ORDERED: D5NS W/20 MEQ KCL 1,000 ML IV SCH (12:28)
[2023-09-17] MEDS ORDERED: metroNIDAZOLE 500 MG/100 ML 500 MG/100 ML BAG ONE (13:06)
--- NOTE | 2023-09-17 17:20 | PHARMACY PROGRESS NOTE ---
- Best Possible Medication History Admit Date and Time: 09/17/23 0463 Processed by: Pharmacy Medication History completed: Yes Patient Interview: Completed As the person ultimately responsible for medication therapy, providers are able to order a medication from an existing home medication list in [facility] via the "Reconcile Routine" prior to Confirmation of that medication by client support manager. Such practice is discouraged except when the physician, in their clinical kranthi gment, deems that a medical need exists for a medication without regard to previous use.
--- NOTE | 2023-09-17 17:21 | PROVIDER PROGRESS NOTE ---
Assessment/Plan - Problem List (1) Duodenitis Assessment/Plan: Patient had another large black BM around midnight last night and did undergo EGD today in the late morning. The findings were duodenitis with erythema and erosions. The area was biopsied. She had multiple small shallow healing duodenal ulcers without bleeding Plan: Appreciate general surgery input, and advice for her to eat a soft gluten-free diet, as this may be Celiac disease Cont Protonix 40 mg IV twice daily Clear liquid diet will be started 4 hours after returning from EGD (since she had topical anesthetic sprayed), and if tolerated then gluten-free pureed diet Avoid aspirin and NSAIDs. Await biopsy results I will also order a Nutrition consult re: her cachexia (BMI is 19) and possible celiac disease (2) Anemia due to GI blood loss Conclusion/Plan: She represented to the ER with hemoglobin of 5.1. After 2 units PRBCs, her hemoglobin nic to 8. Today her hemoglobin dropped to 7.1 then 6.9. Plan: Will admit from Observation status to Inpt, given the recurrent Hgb drop I will order another U of blood transfused Follow her hemoglobin every 8 hours, and transfuse when she drops below hemoglobin of 7 again (3) Hx of essential hypertension Conclusion/Plan: Patient takes metoprolol tartrate 100 mg p.o. twice daily for her blood pressure control While in the ER she had a soft blood pressure, as low as 96/65 Plan: I have put her on the lowest dose possible of metoprolol tartrate of 12.5 mg po twice daily, and added parameters for holding it (4) Anxiety Conclusion/Plan: Plan: We will continue her antianxiety med while she is here. - Current Meds Current Meds: Current Medications Generic Name Dose Route Start Last Admin Trade Name Poonam PRN Reason Stop Dose Admin Escitalopram Oxalate 15 mg 09/17/23 09:00 09/17/23 12:23 Escitalopram 10 Mg Tablet PO 15 mg DAILY [facility] Administration Metoprolol Tartrate 12.5 mg 09/16/23 21:00 09/17/23 12:24 Metoprolol Tartrate 25 Mg Tablet PO 12.5 mg BID [facility] Administration Pantoprazole Sodium 40 mg 09/16/23 21:00 09/17/23 12:25 Pantoprazole 40 Mg Vial IVP 40 mg BID [facility] Administration Sodium Chloride 10 ml 09/16/23 17:00 09/17/23 10:05 Sodium Chloride Flush 0.9% 10 Ml Syringe IVP Not Given 0100,0900,1700 [facility] - Lab Result Fish Bone Diagrams: 09/17/23 16:40 09/16/23 00:56 - Additional Planning My Orders: My Active Orders 09/16/23 17:00 Sodium Chloride Flush 0.9% [Normal Saline Flush 0.9%] 10 ml IVP 0100,0900,1700 09/16/23 21:00 Metoprolol Tartrate [Lopressor] 12.5 mg PO BID Pantoprazole [Protonix] 40 mg IVP BID 09/17/23 RBC, LEUKOREDUCED Stat TYPE AND SCREEN Stat 09/17/23 09:00 Escitalopram [Lexapro] 15 mg PO DAILY 09/17/23 12:28 D5ns W/20 Meq KCl 1,000 ml IV 40 mls/hr 09/17/23 12:38 Miscellaenous Nursing Order [RC] ONCE 09/17/23 13:22 LORazepam [Ativan] 0.5 mg PO Q6H PRN 09/17/23 Dinner DIET [Dysphagia - Puree] [DIET] 09/17/23 16:57 Admit \ Transfer \ Status [RC] .ONCE 09/17/23 17:09 Transfuse RBCs Leukoreduced [RC] .ONCE 09/18/23 00:00 HGB - HEMOGLOBIN [HEME] Q8H Subjective - Subjective Patient Reports: Other (Lethargic after having EGD) Objective Vital Signs: Vital Signs - 24 hr 09/16/23 09/16/23 09/17/23 20:45 20:51 00:51 Temperature 37.1 C 36.4 C L Heart Rate [ 83 Apical] Heart Rate [ Brachial] Respiratory 16 18 Rate Blood Pressure 120/79 Blood Pressure [Left Brachial artery] Blood Pressure 120/79 [Right Brachial artery] O2 Saturation 94 94 09/17/23 09/17/23 09/17/23 05:00 09:00 10:30 Temperature 37.0 C 37.7 C 37.1 C Heart Rate [ Apical] Heart Rate [ 87 92 89 Brachial] Respiratory 16 16 20 Rate Blood Pressure Blood Pressure 112/77 [Left Brachial artery] Blood Pressure 134/77 H 139/89 H [Right Brachial artery] O2 Saturation 93 94 94 09/17/23 09/17/23 12:33 15:48 Temperature 37.2 C 37.2 C Heart Rate [ Apical] Heart Rate [ 90 81 Brachial] Respiratory 20 16 Rate Blood Pressure Blood Pressure 137/91 H 125/81 H [Left Brachial artery] Blood Pressure [Right Brachial artery] O2 Saturation 95 93 Oxygen O2 Source Room air I&O (Last 24 Hrs): Intake and Output Totals x24h 09/15/23 09/16/23 09/17/23 23:59 23:59 23:59 Intake Total 3560 2.667 Balance 3560 2122.667 General: Other (Lethargic from sedatives during EGD) HEENT: Mucous membr. moist/pink, Other (Thin. Disheveled.) Neck: Supple Neuro: Non Focal Cardiovascular: Regular rate Respiratory: No respiratory distress Abdomen: Soft, No tenderness (no guarding or rebound) Extremities: No clubbing, No edema, No tenderness/swelling - Results Results: Laboratory Results WBC 15.3 x10^3/uL (4.8-10.8) H 09/16/23 00:56 RBC 1.74 10^6/uL (4.20-5.40) L 09/16/23 00:56 Hgb 6.9 g/dL (12.0-16.0) L* 09/17/23 16:40 Hct 21.2 % (37.0-47.0) L 09/16/23 11:30 MCV 89.7 fL (81.0-99.0) 09/16/23 00:56 MCH 29.3 pg (27.0-31.0) 09/16/23 00:56 MCHC 32.7 g/dL (32.0-36.0) 09/16/23 00:56 RDW 15.8 % (12.0-15.0) H 09/16/23 00:56 Plt Count 259 10^3/uL (130-450) 09/16/23 00:56 MPV 11.5 fL (7.9-10.8) H 09/16/23 00:56 Neut # (Auto) 11.3 10^3/uL (1.5-6.6) H 09/16/23 00:56 Lymph # (Auto) 3.2 10^3/uL (1.5-3.5) 09/16/23 00:56 [place] # (Auto) 0.5 10^3/uL (0.0-1.0) 09/16/23 00:56 Eos # (Auto) 0.0 10^3/uL (0.0-0.7) 09/16/23 00:56 Baso # (Auto) 0.0 10^3/uL (0.0-0.1) 09/16/23 00:56 Absolute Nucleated RBC 0.00 x10^3/uL 09/16/23 00:56 Nucleated RBC % 0.0 /100WBC 09/16/23 00:56 PT 17.0 secs (9.9-12.6) H 09/16/23 00:56 INR 1.6 (0.8-1.2) H 09/16/23 00:56 APTT 25.0 secs (24.9-33.3) 09/16/23 00:56 Sodium 130 mmol/L (135-145) L 09/16/23 00:56 Potassium 3.2 mmol/L (3.5-4.5) L 09/16/23 00:56 Chloride 97 mmol/L (101-111) L 09/16/23 00:56 Carbon Dioxide 23 mmol/L (21-32) 09/16/23 00:56 Anion Gap 10.0 (6-13) 09/16/23 00:56 BUN 16 mg/dL (6-20) 09/16/23 00:56 Creatinine 0.7 mg/dL (0.6-1.3) 09/16/23 00:56 Estimated GFR (MDRD) 83 (>89) L 09/16/23 00:56 Glucose 134 mg/dL (74-104) H 09/16/23 00:56 Calcium 8.4 mg/dL (8.5-10.3) L 09/16/23 00:56 Magnesium 1.6 mg/dL (1.7-2.3) L 09/16/23 00:56 Total Bilirubin 0.3 mg/dL (0.2-1.0) 09/16/23 00:56 AST 18 IU/L (10-42) 09/16/23 00:56 ALT 16 IU/L (10-60) 09/16/23 00:56 Alkaline Phosphatase 37 IU/L (42-121) L 09/16/23 00:56 Total Protein 5.2 g/dL (6.4-8.9) L 09/16/23 00:56 Albumin 3.3 g/dL (3.2-5.5) 12 00:56 Globulin 1.9 g/dL (2.1-4.2) L 09/16/23 00:56 Albumin/Globulin Ratio 1.7 (1.0-2.2) 12 00:56 Lipase 23 U/L (11-82) 09/16/23 00:56 Blood Type O NEGATIVE 09/16/23 00:56 Antibody Screen NEGATIVE 09/16/23 00:56 Crossmatch IS Only See Detail 09/16/23 00:56 - Procedures Procedures: Procedures BYPASS DESCENDING COLON TO CUTANEOUS, OPEN APPROACH (09/03/17) EXCISION OF ASCENDING COLON, OPEN APPROACH (09/03/17) EXCISION OF ILEUM, OPEN APPROACH (09/03/17) EXCISION OF SIGMOID COLON, ENDO (08/08/19) INSERTION OF INFUSION DEV INTO SUP VENA CAVA, PERC APPROACH (09/03/17) INTRODUCTION OF NUTRITIONAL INTO CENTRAL VEIN, PERC APPROACH (09/03/17) REPAIR SIGMOID COLON, PERCUTANEOUS ENDOSCOPIC APPROACH (02/05/18) RESECTION OF SIGMOID COLON, OPEN APPROACH (09/03/17) RESPIRATORY VENTILATION, GREATER THAN 96 CONSECUTIVE HOURS (09/03/17) TRANSFUSE NONAUT RED BLOOD CELLS IN CENTRAL VEIN, PERC (09/03/17)
[2023-09-18] MEDS: LORazepam 0.5 MG TABLET PO PRN ×2 (01:15→01:23)
[2023-09-18] MEDS: SODIUM CHLORIDE FLUSH 0.9% 10 ML SYRINGE IVP SCH ×3 (01:48→17:18)
[2023-09-18 05:34] LABS: BASOPHILS % (AUTO) 0.3 %; EOSINOPHILS # (AUTO) 0.1 10^3/uL (0.0-0.7); EOSINOPHILS % (AUTO) 0.7 %; HCT - HEMATOCRIT 24.3 % (37.0-47.0); HGB - HEMOGLOBIN 8.1 g/dL (12.0-16.0); LYMPHOCYTES % (AUTO) 22.2 %; MEAN CORPUSCULAR HEMOGLOBIN 29.7 pg (27.0-31.0); MEAN CORPUSCULAR HGB CONC 33.3 g/dL (32.0-36.0); MEAN PLATELET VOLUME 10.5 fL (7.9-10.8); MONOCYTES # (AUTO) 0.5 10^3/uL (0.0-1.0); MONOCYTES % (AUTO) 3.9 %; NEUTROPHILS # (AUTO) 9.7 10^3/uL (1.5-6.6); NRBC ABSOLUTE COUNT (AUTO) 0.03 x10^3/uL; NUCLEATED RED BLOOD CELLS AUTO 0.2 /100WBC; PLT - PLATELET COUNT 339 10^3/uL (130-450); RED BLOOD COUNT 2.73 10^6/uL (4.20-5.40); WHITE BLOOD COUNT 13.5 x10^3/uL (4.8-10.8)
[2023-09-18 05:50] LABS: CREATININE 0.5 mg/dL (0.6-1.3); POTASSIUM 3.7 mmol/L (3.5-4.5)
[2023-09-18] MEDS: METOPROLOL TARTRATE 50 MG TABLET PO SCH ×2 (10:30→21:46)
[2023-09-18] MEDS: ESCITALOPRAM 10 MG TABLET PO SCH (10:30)
[2023-09-18] MEDS: PANTOPRAZOLE 40 MG VIAL IVP SCH ×2 (10:32→21:46)
--- NOTE | 2023-09-18 12:20 | PROVIDER PROGRESS NOTE ---
Assessment/Plan - Problem List (1) Anemia due to GI blood loss Assessment/Plan: --Underwent EGD showing evidence of duodenitis on 09/17. Pathology report is currently pending. --Continue IV Protonix for an additional day. Can transition to oral Protonix on discharge. --Continue to monitor hemoglobin. --Case was discussed with general surgery. Anticipate discharge in next 24 hours with outpatient follow-up. (2) Anemia due to GI blood loss --Having residual bloody bowel movements. Will continue to monitor. --Received a total of 3 units pRBC. HTN --Resuming home blood pressure medications. - Current Meds Current Meds: Current Medications Generic Name Dose Route Start Last Admin Trade Name Freq PRN Reason Stop Dose Admin Escitalopram Oxalate 15 mg 09/17/23 09:00 09/18/23 10:30 Escitalopram 10 Mg Tablet PO 15 mg DAILY AMNA Administration Lorazepam 0.5 mg 09/17/23 13:22 09/18/23 01:23 Lorazepam 0.5 Mg Tablet PO 0.5 mg Q6H PRN Administration Anxiety Metoprolol Tartrate 100 mg 09/18/23 09:00 09/18/23 10:30 Metoprolol Tartrate 50 Mg Tablet PO 100 mg BID AMNA Administration Pantoprazole Sodium 40 mg 09/16/23 21:00 09/18/23 10:32 Pantoprazole 40 Mg Vial IVP 40 mg BID AMNA Administration Sodium Chloride 10 ml 09/16/23 17:00 09/18/23 10:32 Sodium Chloride Flush 0.9% 10 Ml Syringe IVP 10 ml 0100,0900,1700 AMNA Administration - Lab Result Fish Bone Diagrams: 09/18/23 04:50 09/18/23 04:50 - Additional Planning My Orders: My Active Orders 09/18/23 09:00 Metoprolol Tartrate [Lopressor] 100 mg PO BID 09/18/23 Lunch Regular Diet [DIET] 09/19/23 05:00 BMP - BASIC METABOLIC PANEL [CHEM] DAILYLAB CBC [CBC - COMP BLD CT W/AUTO DIFF] [HEME] DAILYLAB 09/20/23 05:00 BMP - BASIC METABOLIC PANEL [CHEM] DAILYLAB CBC [CBC - COMP BLD CT W/AUTO DIFF] [HEME] DAILYLAB 09/21/23 05:00 BMP - BASIC METABOLIC PANEL [CHEM] DAILYLAB CBC [CBC - COMP BLD CT W/AUTO DIFF] [HEME] DAILYLAB 09/22/23 05:00 BMP - BASIC METABOLIC PANEL [CHEM] DAILYLAB CBC [CBC - COMP BLD CT W/AUTO DIFF] [HEME] DAILYLAB Subjective - Subjective Patient Reports: Feeling Better (Residual bloody BM. Hgb stable. She is eating.) Objective Vital Signs: Vital Signs - 24 hr 09/17/23 09/17/23 09/17/23 12:33 15:48 18:27 Temperature 37.2 C 37.2 C 36.5 C Heart Rate [ 90 81 96 Brachial] Respiratory 20 16 24 Rate Blood Pressure Blood Pressure 137/91 H 125/81 H 126/82 H [Left Brachial artery] Blood Pressure [Right Brachial artery] O2 Saturation 95 93 93 09/17/23 09/17/23 09/17/23 18:45 20:04 20:58 Temperature 37.1 C 36.5 C Heart Rate [ 95 95 Brachial] Respiratory 21 20 Rate Blood Pressure 138/86 H Blood Pressure 115/79 117/85 H [Left Brachial artery] Blood Pressure [Right Brachial artery] O2 Saturation 95 92 09/17/23 09/18/23 09/18/23 22:19 01:00 03:08 Temperature 37.1 C 36.2 C L Heart Rate [ 81 82 Brachial] Respiratory 20 20 Rate Blood Pressure Blood Pressure 146/91 H [Left Brachial artery] Blood Pressure 163/97 H 151/100 H [Right Brachial artery] O2 Saturation 95 94 09/18/23 09/18/23 09/18/23 04:55 07:48 10:30 Temperature 37.3 C 37 C Heart Rate [ 84 86 Brachial] Respiratory 18 16 Rate Blood Pressure 162/102 H Blood Pressure [Left Brachial artery] Blood Pressure 155/101 H 162/102 H [Right Brachial artery] O2 Saturation 94 96 Oxygen O2 Source Room air I&O (Last 24 Hrs): Intake and Output Totals x24h 09/16/23 09/17/23 09/18/23 23:59 23:59 23:59 Intake Total 3560 3213.334 1102.833 Balance 3560 3213.334 1102.833 General: Alert, Oriented x3 Neuro: Alert Cardiovascular: Regular rate, Normal S1 Respiratory: Chest non-tender, No respiratory distress Abdomen: Normal bowel sounds, No tenderness Extremities: No clubbing, No edema - Results Results: Laboratory Results WBC 13.5 x10^3/uL (4.8-10.8) H 09/18/23 04:50 RBC 2.73 10^6/uL (4.20-5.40) L 09/18/23 04:50 Hgb 8.1 g/dL (12.0-16.0) L 09/18/23 04:50 Hct 24.3 % (37.0-47.0) L 09/18/23 04:50 MCV 89.0 fL (81.0-99.0) 09/18/23 04:50 MCH 29.7 pg (27.0-31.0) 09/18/23 04:50 MCHC 33.3 g/dL (32.0-36.0) 09/18/23 04:50 RDW 16.0 % (12.0-15.0) H 09/18/23 04:50 Plt Count 339 10^3/uL (130-450) 09/18/23 04:50 MPV 10.5 fL (7.9-10.8) 09/18/23 04:50 Neut # (Auto) 9.7 10^3/uL (1.5-6.6) H 09/18/23 04:50 Lymph # (Auto) 3.0 10^3/uL (1.5-3.5) 09/18/23 04:50 [place] # (Auto) 0.5 10^3/uL (0.0-1.0) 09/18/23 04:50 Eos # (Auto) 0.1 10^3/uL (0.0-0.7) 09/18/23 04:50 Baso # (Auto) 0.0 10^3/uL (0.0-0.1) 09/18/23 04:50 Absolute Nucleated RBC 0.03 x10^3/uL 09/18/23 04:50 Nucleated RBC % 0.2 /100WBC 09/18/23 04:50 PT 17.0 secs (9.9-12.6) H 09/16/23 00:56 INR 1.6 (0.8-1.2) H 09/16/23 00:56 APTT 25.0 secs (24.9-33.3) 09/16/23 00:56 Sodium 136 mmol/L (135-145) 09/18/23 04:50 Potassium 3.7 mmol/L (3.5-4.5) 09/18/23 04:50 Chloride 108 mmol/L (101-111) 09/18/23 04:50 Carbon Dioxide 24 mmol/L (21-32) 09/18/23 04:50 Anion Gap 4.0 (6-13) L 09/18/23 04:50 BUN 7 mg/dL (6-20) 09/18/23 04:50 Creatinine 0.5 mg/dL (0.6-1.3) L 09/18/23 04:50 Estimated GFR (MDRD) 122 (>89) 09/18/23 04:50 Glucose 124 mg/dL (74-104) H 09/18/23 04:50 Calcium 8.0 mg/dL (8.5-10.3) L 09/18/23 04:50 Magnesium 1.6 mg/dL (1.7-2.3) L 09/16/23 00:56 Total Bilirubin 0.3 mg/dL (0.2-1.0) 09/16/23 00:56 AST 18 IU/L (10-42) 09/16/23 00:56 ALT 16 IU/L (10-60) 09/16/23 00:56 Alkaline Phosphatase 37 IU/L (42-121) L 09/16/23 00:56 Total Protein 5.2 g/dL (6.4-8.9) L 09/16/23 00:56 Albumin 3.3 g/dL (3.2-5.5) 09/16/23 00:56 Globulin 1.9 g/dL (2.1-4.2) L 09/16/23 00:56 Albumin/Globulin Ratio 1.7 (1.0-2.2) 09/16/23 00:56 Lipase 23 U/L (11-82) 09/16/23 00:56 Blood Type O NEGATIVE 09/16/23 00:56 Antibody Screen NEGATIVE 09/16/23 00:56 Crossmatch IS Only See Detail 09/16/23 00:56 - Procedures Procedures: Procedures BYPASS DESCENDING COLON TO CUTANEOUS, OPEN APPROACH (09/03/17) EXCISION OF ASCENDING COLON, OPEN APPROACH (09/03/17) EXCISION OF ILEUM, OPEN APPROACH (09/03/17) EXCISION OF SIGMOID COLON, ENDO (08/08/19) INSERTION OF INFUSION DEV INTO SUP VENA CAVA, PERC APPROACH (09/03/17) INTRODUCTION OF NUTRITIONAL INTO CENTRAL VEIN, PERC APPROACH (09/03/17) REPAIR SIGMOID COLON, PERCUTANEOUS ENDOSCOPIC APPROACH (02/05/18) RESECTION OF SIGMOID COLON, OPEN APPROACH (09/03/17) RESPIRATORY VENTILATION, GREATER THAN 96 CONSECUTIVE HOURS (09/03/17) TRANSFUSE NONAUT RED BLOOD CELLS IN CENTRAL VEIN, PERC (09/03/17) Current Medications - Current Medications Current Medications: Active Medications Generic Name Dose Route Start Last Admin Trade Name Freq PRN Reason Stop Dose Admin Acetaminophen 650 mg 09/16/23 12:36 Acetaminophen 325 Mg Tablet PO Q4HR PRN Pain 1 to 4, or Fever Amlodipine Besylate 5 mg 09/18/23 13:00 Amlodipine 5 Mg Tablet PO DAILY AMNA Escitalopram Oxalate 15 mg 09/17/23 09:00 09/18/23 10:30 Escitalopram 10 Mg Tablet PO 15 mg DAILY AMNA Administration Hydromorphone HCl 0.5 mg 09/16/23 12:36 Hydromorphone 0.5 Mg/0.5 Ml Syringe IVP Q4H PRN Pain 8 to 10 Lorazepam 0.5 mg 09/17/23 13:22 09/18/23 01:23 Lorazepam 0.5 Mg Tablet PO 0.5 mg Q6H PRN Administration Anxiety Metoprolol Tartrate 100 mg 09/18/23 09:00 09/18/23 10:30 Metoprolol Tartrate 50 Mg Tablet PO 100 mg BID AMNA Administration Ondansetron HCl 4 mg 09/16/23 12:36 Ondansetron 4 Mg/2 Ml Vial IVP Q6HR PRN Nausea / Vomiting Pantoprazole Sodium 40 mg 09/16/23 21:00 09/18/23 10:32 Pantoprazole 40 Mg Vial IVP 40 mg BID AMNA Administration Sodium Chloride 10 ml 09/16/23 12:36 Sodium Chloride Flush 0.9% 10 Ml Syringe IVP PRN PRN NEEDED PER PROVIDER ORDERS Sodium Chloride 10 ml 09/16/23 17:00 09/18/23 10:32 Sodium Chloride Flush 0.9% 10 Ml Syringe IVP 10 ml 0100,0900,1700 AMNA Administration Metoprolol Tartrate [Lopressor] 100 mg PO BID 03/27/21 Escitalopram Oxalate 15 mg PO DAILY 09/16/23
[2023-09-18] MEDS: ACETAMINOPHEN 325 MG TABLET PO PRN (16:15)
[2023-09-18] MEDS: amLODIPine 5 MG TABLET PO SCH (16:15)
[2023-09-18] MEDS: SODIUM CHLORIDE FLUSH 0.9% 10 ML SYRINGE IVP PRN (21:46)
[2023-09-19] MEDS: SODIUM CHLORIDE FLUSH 0.9% 10 ML SYRINGE IVP SCH ×3 (00:59→20:43)
[2023-09-19] MEDS: SODIUM CHLORIDE FLUSH 0.9% 10 ML SYRINGE IVP PRN (00:59)
[2023-09-19] MEDS: LORazepam 0.5 MG TABLET PO PRN (05:14)
[2023-09-19 05:57] LABS: BASOPHILS % (AUTO) 0.3 %; EOSINOPHILS # (AUTO) 0.2 10^3/uL (0.0-0.7); EOSINOPHILS % (AUTO) 1.4 %; HCT - HEMATOCRIT 25.7 % (37.0-47.0); HGB - HEMOGLOBIN 8.5 g/dL (12.0-16.0); LYMPHOCYTES # (AUTO) 2.7 10^3/uL (1.5-3.5); LYMPHOCYTES % (AUTO) 22.8 %; MEAN CORPUSCULAR HEMOGLOBIN 29.5 pg (27.0-31.0); MEAN CORPUSCULAR HGB CONC 33.1 g/dL (32.0-36.0); MEAN CORPUSCULAR VOLUME 89.2 fL (81.0-99.0); MEAN PLATELET VOLUME 10.2 fL (7.9-10.8); MONOCYTES # (AUTO) 0.6 10^3/uL (0.0-1.0); NEUTROPHILS # (AUTO) 8.4 10^3/uL (1.5-6.6); NRBC ABSOLUTE COUNT (AUTO) 0.02 x10^3/uL; NUCLEATED RED BLOOD CELLS AUTO 0.2 /100WBC; PLT - PLATELET COUNT 382 10^3/uL (130-450); RED BLOOD COUNT 2.88 10^6/uL (4.20-5.40); RED CELL DISTRIBUTION WIDTH 15.8 % (12.0-15.0)
[2023-09-19 06:08] LABS: CALCIUM 8.3 mg/dL (8.5-10.3); CREATININE 0.5 mg/dL (0.6-1.3); POTASSIUM 3.6 mmol/L (3.5-4.5)
[2023-09-19] MEDS: METOPROLOL TARTRATE 50 MG TABLET PO SCH ×2 (09:26→20:43)
[2023-09-19] MEDS: ESCITALOPRAM 10 MG TABLET PO SCH (09:29)
[2023-09-19] MEDS: amLODIPine 5 MG TABLET PO SCH (09:29)
[2023-09-19] MEDS: ACETAMINOPHEN 325 MG TABLET PO PRN (09:29)
[2023-09-19] MEDS: PANTOPRAZOLE 40 MG VIAL IVP SCH ×2 (09:30→20:43)
--- NOTE | 2023-09-19 16:06 | PROVIDER PROGRESS NOTE ---
Assessment/Plan - Problem List (1) Anemia due to GI blood loss Assessment/Plan: (1) Anemia due to GI blood loss Assessment/Plan: --Underwent EGD showing evidence of duodenitis on 09/17. Pathology report is currently pending. --Hgb is stable. --No further bloody BM. (2) Anemia due to GI blood loss --Received a total of 3 units pRBC. HTN --Resuming home blood pressure medications. Weakness --PT/OT evaluation. She will benefit from on discharge. - Current Meds Current Meds: Current Medications Generic Name Dose Route Start Last Admin Trade Name Freq PRN Reason Stop Dose Admin Acetaminophen 650 mg 09/16/23 12:36 09/19/23 09:29 Acetaminophen 325 Mg Tablet PO 650 mg Q4HR PRN Administration Pain 1 to 4, or Fever Amlodipine Besylate 5 mg 09/18/23 13:00 09/19/23 09:29 Amlodipine 5 Mg Tablet PO 5 mg DAILY AMNA Administration Escitalopram Oxalate 15 mg 09/17/23 09:00 09/19/23 09:29 Escitalopram 10 Mg Tablet PO 15 mg DAILY AMNA Administration Lorazepam 0.5 mg 09/17/23 13:22 09/19/23 05:14 Lorazepam 0.5 Mg Tablet PO 0.5 mg Q6H PRN Administration Anxiety Metoprolol Tartrate 100 mg 09/18/23 09:00 09/19/23 09:26 Metoprolol Tartrate 50 Mg Tablet PO 100 mg BID AMNA Administration Pantoprazole Sodium 40 mg 09/16/23 21:00 09/19/23 09:30 Pantoprazole 40 Mg Vial IVP 40 mg BID AMNA Administration Sodium Chloride 10 ml 09/16/23 12:36 09/19/23 00:59 Sodium Chloride Flush 0.9% 10 Ml Syringe IVP 10 ml PRN PRN Administration NEEDED PER PROVIDER ORDERS Sodium Chloride 10 ml 09/16/23 17:00 09/19/23 09:30 Sodium Chloride Flush 0.9% 10 Ml Syringe IVP 10 ml 0100,0900,1700 AMNA Administration - Lab Result Fish Bone Diagrams: 09/19/23 05:33 09/19/23 05:33 - Additional Planning My Orders: My Active Orders 09/19/23 Evaluate and Treat OT [OT] Routine Evaluate and Treat PT [PT] Routine 09/20/23 05:00 BMP - BASIC METABOLIC PANEL [CHEM] DAILYLAB CBC [CBC - COMP BLD CT W/AUTO DIFF] [HEME] DAILYLAB 09/21/23 05:00 BMP - BASIC METABOLIC PANEL [CHEM] DAILYLAB CBC [CBC - COMP BLD CT W/AUTO DIFF] [HEME] DAILYLAB 09/22/23 05:00 BMP - BASIC METABOLIC PANEL [CHEM] DAILYLAB CBC [CBC - COMP BLD CT W/AUTO DIFF] [HEME] DAILYLAB Subjective - Subjective Patient Reports: Feeling Better, Resting Comfortably, No Complaints (Having some weakness.) Objective Vital Signs: Vital Signs - 24 hr 09/18/23 09/18/23 09/18/23 16:05 20:57 21:46 Temperature 36.9 C 36.8 C Heart Rate [ 70 73 Brachial] Heart Rate [ Sitting] Heart Rate [ Standing] Respiratory 16 24 Rate Blood Pressure 141/95 H Blood Pressure [Left Brachial artery] Blood Pressure 162/104 H 141/95 H [Right Brachial artery] Blood Pressure [Sitting] Blood Pressure [Standing] O2 Saturation 95 94 09/19/23 09/19/23 09/19/23 00:56 05:00 09:00 Temperature 37.1 C 37.4 C 37.2 C Heart Rate [ 68 68 77 Brachial] Heart Rate [ Sitting] Heart Rate [ Standing] Respiratory 16 16 16 Rate Blood Pressure Blood Pressure 128/85 H [Left Brachial artery] Blood Pressure 157/99 H 151/95 H [Right Brachial artery] Blood Pressure [Sitting] Blood Pressure [Standing] O2 Saturation 95 95 99 09/19/23 09/19/23 09/19/23 09:26 11:43 13:00 Temperature 36.8 C Heart Rate [ 71 Brachial] Heart Rate [ 63 Sitting] Heart Rate [ 66 Standing] Respiratory 18 Rate Blood Pressure 146/94 H Blood Pressure [Left Brachial artery] Blood Pressure 126/75 [Right Brachial artery] Blood Pressure 144/88 H [Sitting] Blood Pressure 140/90 H [Standing] O2 Saturation 99 Oxygen O2 Source Room air I&O (Last 24 Hrs): Intake and Output Totals x24h 09/17/23 09/18/23 09/19/23 23:59 23:59 23:59 Intake Total 3.334 1941.833 480 Balance 3.334 1941.833 480 General: Alert, Oriented x3, Cooperative, No acute distress HEENT: Atraumatic, PERRLA, EOMI Neck: Supple, No JVD, No thyromegaly, +2 carotid pulse wo bruit, No LAD Lymphatic: no adenopathy Neuro: Alert, CN 2-12 Grossly Intact, Oriented Times 3 Cardiovascular: Regular rate, Normal S1, Normal S2, No murmurs Respiratory: Chest non-tender, No respiratory distress, Breath sounds nml Abdomen: Normal bowel sounds, Soft, No tenderness, No hepatospenomegaly, No masses Genitourinary: Normal External, No Bleeding, No Discharge, No Tenderness, No Adnexal Mass Rectal: Non-Tender Extremities: No clubbing, No cyanosis, No edema, Normal pulses, No tenderness/swelling Skin: No rashes, No breakdown, No significant lesion - Results Results: Laboratory Results WBC 12.0 x10^3/uL (4.8-10.8) H 09/19/23 05:33 RBC 2.88 10^6/uL (4.20-5.40) L 09/19/23 05:33 Hgb 8.5 g/dL (12.0-16.0) L 09/19/23 05:33 Hct 25.7 % (37.0-47.0) L 09/19/23 05:33 MCV 89.2 fL (81.0-99.0) 09/19/23 05:33 MCH 29.5 pg (27.0-31.0) 09/19/23 05:33 MCHC 33.1 g/dL (32.0-36.0) 09/19/23 05:33 RDW 15.8 % (12.0-15.0) H 09/19/23 05:33 Plt Count 382 10^3/uL (130-450) 09/19/23 05:33 MPV 10.2 fL (7.9-10.8) 09/19/23 05:33 Neut # (Auto) 8.4 10^3/uL (1.5-6.6) H 09/19/23 05:33 Lymph # (Auto) 2.7 10^3/uL (1.5-3.5) 09/19/23 05:33 [place] # (Auto) 0.6 10^3/uL (0.0-1.0) 09/19/23 05:33 Eos # (Auto) 0.2 10^3/uL (0.0-0.7) 09/19/23 05:33 Baso # (Auto) 0.0 10^3/uL (0.0-0.1) 09/19/23 05:33 Absolute Nucleated RBC 0.02 x10^3/uL 09/19/23 05:33 Nucleated RBC % 0.2 /100WBC 09/19/23 05:33 PT 17.0 secs (9.9-12.6) H 09/16/23 00:56 INR 1.6 (0.8-1.2) H 09/16/23 00:56 APTT 25.0 secs (24.9-33.3) 09/16/23 00:56 Sodium 134 mmol/L (135-145) L 09/19/23 05:33 Potassium 3.6 mmol/L (3.5-4.5) 09/19/23 05:33 Chloride 101 mmol/L (101-111) 09/19/23 05:33 Carbon Dioxide 27 mmol/L (21-32) 09/19/23 05:33 Anion Gap 6.0 (6-13) 09/19/23 05:33 BUN 5 mg/dL (6-20) L 09/19/23 05:33 Creatinine 0.5 mg/dL (0.6-1.3) L 09/19/23 05:33 Estimated GFR (MDRD) 122 (>89) 09/19/23 05:33 Glucose 115 mg/dL (74-104) H 09/19/23 05:33 Calcium 8.3 mg/dL (8.5-10.3) L 09/19/23 05:33 Magnesium 1.6 mg/dL (1.7-2.3) L 09/16/23 00:56 Total Bilirubin 0.3 mg/dL (0.2-1.0) 09/16/23 00:56 AST 18 IU/L (10-42) 09/16/23 00:56 ALT 16 IU/L (10-60) 09/16/23 00:56 Alkaline Phosphatase 37 IU/L (42-121) L 09/16/23 00:56 Total Protein 5.2 g/dL (6.4-8.9) L 09/16/23 00:56 Albumin 3.3 g/dL (3.2-5.5) 09/16/23 00:56 Globulin 1.9 g/dL (2.1-4.2) L 09/16/23 00:56 Albumin/Globulin Ratio 1.7 (1.0-2.2) 09/16/23 00:56 Lipase 23 U/L (11-82) 09/16/23 00:56 Blood Type O NEGATIVE 09/16/23 00:56 Antibody Screen NEGATIVE 09/16/23 00:56 Crossmatch IS Only See Detail 09/16/23 00:56 - Procedures Procedures: Procedures BYPASS DESCENDING COLON TO CUTANEOUS, OPEN APPROACH (09/03/17) EXCISION OF ASCENDING COLON, OPEN APPROACH (09/03/17) EXCISION OF ILEUM, OPEN APPROACH (09/03/17) EXCISION OF SIGMOID COLON, ENDO (08/08/19) INSERTION OF INFUSION DEV INTO SUP VENA CAVA, PERC APPROACH (09/03/17) INTRODUCTION OF NUTRITIONAL INTO CENTRAL VEIN, PERC APPROACH (09/03/17) REPAIR SIGMOID COLON, PERCUTANEOUS ENDOSCOPIC APPROACH (02/05/18) RESECTION OF SIGMOID COLON, OPEN APPROACH (09/03/17) RESPIRATORY VENTILATION, GREATER THAN 96 CONSECUTIVE HOURS (09/03/17) TRANSFUSE NONAUT RED BLOOD CELLS IN CENTRAL VEIN, PERC (09/03/17) Current Medications - Current Medications Current Medications: Active Medications Generic Name Dose Route Start Last Admin Trade Name Freq PRN Reason Stop Dose Admin Acetaminophen 650 mg 09/16/23 12:36 09/19/23 09:29 Acetaminophen 325 Mg Tablet PO 650 mg Q4HR PRN Administration Pain 1 to 4, or Fever Amlodipine Besylate 5 mg 09/18/23 13:00 09/19/23 09:29 Amlodipine 5 Mg Tablet PO 5 mg DAILY AMNA Administration Escitalopram Oxalate 15 mg 09/17/23 09:00 09/19/23 09:29 Escitalopram 10 Mg Tablet PO 15 mg DAILY AMNA Administration Hydromorphone HCl 0.5 mg 09/16/23 12:36 Hydromorphone 0.5 Mg/0.5 Ml Syringe IVP Q4H PRN Pain 8 to 10 Lorazepam 0.5 mg 09/17/23 13:22 09/19/23 05:14 Lorazepam 0.5 Mg Tablet PO 0.5 mg Q6H PRN Administration Anxiety Metoprolol Tartrate 100 mg 09/18/23 09:00 09/19/23 09:26 Metoprolol Tartrate 50 Mg Tablet PO 100 mg BID AMNA Administration Ondansetron HCl 4 mg 09/16/23 12:36 Ondansetron 4 Mg/2 Ml Vial IVP Q6HR PRN Nausea / Vomiting Pantoprazole Sodium 40 mg 09/16/23 21:00 09/19/23 09:30 Pantoprazole 40 Mg Vial IVP 40 mg BID AMNA Administration Sodium Chloride 10 ml 09/16/23 12:36 09/19/23 00:59 Sodium Chloride Flush 0.9% 10 Ml Syringe IVP 10 ml PRN PRN Administration NEEDED PER PROVIDER ORDERS Sodium Chloride 10 ml 09/16/23 17:00 09/19/23 09:30 Sodium Chloride Flush 0.9% 10 Ml Syringe IVP 10 ml 0100,0900,1700 AMNA Administration Metoprolol Tartrate [Lopressor] 100 mg PO BID 03/27/21 Escitalopram Oxalate 15 mg PO DAILY 09/16/23
[2023-09-20] MEDS: SODIUM CHLORIDE FLUSH 0.9% 10 ML SYRINGE IVP SCH ×2 (00:09→08:18)
[2023-09-20 05:29] LABS: BASOPHILS % (AUTO) 0.5 %; EOSINOPHILS # (AUTO) 0.1 10^3/uL (0.0-0.7); EOSINOPHILS % (AUTO) 1.6 %; HCT - HEMATOCRIT 25.6 % (37.0-47.0); HGB - HEMOGLOBIN 8.3 g/dL (12.0-16.0); LYMPHOCYTES # (AUTO) 2.3 10^3/uL (1.5-3.5); LYMPHOCYTES % (AUTO) 27.7 %; MEAN CORPUSCULAR HEMOGLOBIN 29.2 pg (27.0-31.0); MEAN CORPUSCULAR HGB CONC 32.4 g/dL (32.0-36.0); MEAN CORPUSCULAR VOLUME 90.1 fL (81.0-99.0); MEAN PLATELET VOLUME 9.8 fL (7.9-10.8); MONOCYTES # (AUTO) 0.5 10^3/uL (0.0-1.0); MONOCYTES % (AUTO) 6.4 %; NEUTROPHILS # (AUTO) 5.3 10^3/uL (1.5-6.6); NEUTROPHILS % (AUTO) 63.4 %; NRBC ABSOLUTE COUNT (AUTO) 0.02 x10^3/uL; NUCLEATED RED BLOOD CELLS AUTO 0.2 /100WBC; PLT - PLATELET COUNT 428 10^3/uL (130-450); RED BLOOD COUNT 2.84 10^6/uL (4.20-5.40); RED CELL DISTRIBUTION WIDTH 15.5 % (12.0-15.0); WHITE BLOOD COUNT 8.4 x10^3/uL (4.8-10.8)
[2023-09-20 05:49] LABS: CALCIUM 8.2 mg/dL (8.5-10.3); CREATININE 0.6 mg/dL (0.6-1.3); POTASSIUM 3.5 mmol/L (3.5-4.5)
[2023-09-20 07:45] VITALS: O2SAT 97
[2023-09-20] MEDS ORDERED: PANTOPRAZOLE 40 MG TABLET PO SCH (08:00)
[2023-09-20] MEDS: ESCITALOPRAM 10 MG TABLET PO SCH (08:13)
[2023-09-20] MEDS: amLODIPine 5 MG TABLET PO SCH (08:15)
[2023-09-20] MEDS: METOPROLOL TARTRATE 50 MG TABLET PO SCH (08:17)
--- NOTE | 2023-09-20 10:59 | Discharge Plan ---
Discharge Plan Problem Reviewed?: Yes Disposition: 06 Home Health Service Condition: Good Prescriptions: Ferrous Sulfate [Feosol] 325 mg PO DAILY #30 tablet amLODIPine [Norvasc] 5 mg PO DAILY #30 tab Pantoprazole [Protonix] 40 mg PO BIDAC 90 Days #180 tab Diet: Regular Activity Restrictions: No Restrictions Shower Restrictions: No Driving Restrictions: No Instruction Topics: Pantoprazole tablets No Smoking: If you smoke, Please STOP! Call for help. Follow-up with: MANI ASHRAF MD [Primary Care Provider] - FANTASMA SZYMANSKI ARNP [Physician No Access] - 1-2 Days Taye Campbell MD [Provider Admit Priv/Credential] - 2 Weeks
--- NOTE | 2023-09-20 11:02 | DISCHARGE SUMMARY ---
"Discharge Summary Discharge Date: 09/20/23 Discharging Provider: Freda Primary Care Provider: Josefina Wilcox Code Status: Do Not Attempt Resuscitation Condition at Discharge: Good Discharge Disposition: Home Health Service - DIAGNOSES Discharge Diagnoses with Status of Each Condition: GI bleed - required 3 units. No active bleeding seen on EGD. Hemoglobin stable. Pathology report pending. On Protonix for 3 months. - HPI History of Present Illness: This is a 68-year-old female with a history of partial colectomy w/ ostomy then ostomt take-down, anxiety and HTN. Patient presented to the ER 4 days ago with complaints of abdominal pain and nausea but no vomiting and having black bowel movements. She had guaiac test showing stool was heme positive, hemoglobin was 11. She had CT abdomen that showed her partial colectomy but nothing else was remarkable. She was discharged from the ER and told to have an outpatient workup for GI bleeding. The patient presented to the ER by EMS today because of continued abdominal pain and black bowel movements and she started to feel anxious and SOB. EMS said she was very anxious at the scene. In the ER, she was found to have hemoglobin 5.1, first blood pressure was normal. Her blood pressure was 96/65 at its lowest while in the ER. She has received 2 units PRBCs and hemoglobin has improved to 7.1 and blood pressure also improved to 116/79. The ED provider spoke to me about this patient. She has been seen by general surgeon while in the ER, who agreed she may need an EGD if there are signs of ongoing bleeding. The patient will be placed in Observation status to monitor and treat her GI blood loss and anemia. I spoke to the patient about her CODE BLUE wishes and she has desire to be DNR - CONSULTS | PROCEDURES Consultations: General surgery Procedures: EGD - HOSPITAL COURSE Hospital Course: Patient is a 68-year-old female who presented to the ED with complaints of abdominal pain and dark stools. She was noted to have a positive FOBT and hemoglobin of 5.1. She required 3 total units of packed red blood cells. Patient was admitted and underwent EGD which revealed evidence of duodenitis characterized by erythema and erosions. This was biopsied. No active bleeding was noted. Patient was monitored inpatient and her hemoglobin remained stable. She was started on oral Protonix 40 mg twice daily. Her pathology sample is currently pending. Patient was discharged with home health and will follow-up with general surgery in regards to her pathology report. Kindly repeat CBC at next outpatient visit. - ALLERGIES Allergies/Adverse Reactions: Allergies Allergy/AdvReac Type Severity Reaction Status Date / Time Penicillins Allergy Unknown Verified 09/16/23 00:31 - MEDICATIONS Home Medications: Ambulatory Orders Medication Instructions Recorded Confirmed RX: Metoprolol Tartrate [Lopressor] 100 mg PO BID 03/27/21 09/18/23 RX: Metoclopramide [Reglan] 10 mg PO Q6H PRN #10 tablet 09/12/23 09/17/23 RX: Ondansetron Odt [Zofran Odt] 4 mg TL Q6H PRN #10 tablet 09/12/23 09/17/23 RX: Escitalopram Oxalate 15 mg PO DAILY 09/16/23 09/16/23 RX: Ferrous Sulfate [Feosol] 325 mg PO DAILY #30 tablet 09/20/23 RX: Pantoprazole [Protonix] 40 mg PO BIDAC 90 Days #180 tab 09/20/23 RX: amLODIPine [Norvasc] 5 mg PO DAILY #30 tab 09/20/23 - PHYSICAL EXAM AT DISCHARGE General Appearance: positive: No acute distress, Alert Respiratory: positive: Chest non-tender, No respiratory distress, Breath sounds nml Cardiovascular: positive: Regular rate & rhythm Abdomen: positive: Non-tender - LABS Result Diagrams: 09/20/23 05:09 09/20/23 05:09 - FOLLOW UP Follow Up: Follow-up with general surgery and PCP. - TIME SPENT Time Spent in Discharge (Minutes): 35"
[2023-09-20 16:05] VITALS: BP 145/88
== END 2023-09-20 16:05 | disposition home health service (06) | DRG 378 ==
LOC: EDUNIT# → ED 00:12 → MS2 12:36 → OBSVTOIN 09-17 16:57
PROVIDERS: ADMIT Internal Medicine; ATTEND Family Medicine
PROC: 0DB68ZX Excision of Stomach, Via Natural or Artificial Opening Endoscopic, Diagnostic (ICD-10-PCS; 2023-09-17)
PROC: 30233N1 Transfusion of Nonautologous Red Blood Cells into Peripheral Vein, Percutaneous Approach (ICD-10-PCS; 2023-09-17)
PROC: 0DB98ZX Excision of Duodenum, Via Natural or Artificial Opening Endoscopic, Diagnostic (ICD-10-PCS; principal; 2023-09-17 09:30)
DX: K92.2 Gastrointestinal hemorrhage, unspecified (principal); K29.81 Duodenitis with bleeding; R53.1 Weakness; D62 Acute posthemorrhagic anemia; K29.50 Unspecified chronic gastritis without bleeding; Z90.49 Acquired absence of other specified parts of digestive tract; K25.9 Gastric ulcer, unspecified as acute or chronic, without hemorrhage or perforation; K26.4 Chronic or unspecified duodenal ulcer with hemorrhage; F41.9 Anxiety disorder, unspecified; I10 Essential (primary) hypertension; Z66 Do not resuscitate; Z88.0 Allergy status to penicillin; Z87.891 Personal history of nicotine dependence; Z79.899 Other long term (current) drug therapy
CPT/HCPCS: 36415; 36430; 43239; 80048; 80053; 83690; 83735; 85014; 85018; 85025; 85610; 85730; 86850; 86900; 86901; 86920; 93005; 96365; 96367; 96375; 97116; 97161; 99291; A9270; J1170; J1200; P9016

== ENCOUNTER 2023-10-25 11:06 | Outpatient (CLI) | payer MEDICARE, OTHER ==
[2023-10-25] MEDS ORDERED: DIATRIZOATE MEGLU/DIATRIZO SOD 30 ML BOTTLE PO ONE ×2 (11:12→14:28)
[2023-10-25 11:33] LABS: CREATININE 0.7 mg/dL (0.6-1.3)
--- NOTE | 2023-10-25 17:41 | CT Report ---
PROCEDURE: Abdomen/Pelvis WO INDICATIONS: HX ANASTAMOTIC STRICTURE, ABD DISTENTION TECHNIQUE: A CT scan of the abdomen and pelvis was performed after administration of rectal contrast. Images we re recorded and evaluated at appropriate window settings. Reformats: coronal and sagittal. For radiat ion dose reduction, the following was used: automated exposure control, adjustment of mA and/or kV ac cording to patient size. COMPARISON: CT abdomen and pelvis on September 12, 2023. FINDINGS: Evaluation of the visceral organs is limited due to the lack of intravenous contrast. Image quality: Adequate. Lung bases and heart: Cardiomegaly. Small hiatal hernia. Small fat-containing right-sided metallic he rnia. Lower lobe atelectasis. No basilar effusion. Liver: No contour-deforming mass. Gallbladder and biliary tree: Unremarkable. Spleen: No splenomegaly. Pancreas: No pancreatic ductal dilation. Adrenals: No adrenal nodule. Kidneys and ureters: No hydronephrosis or nephrolithiasis. No contour deforming mass. Subcentimeter s imple cyst in the left upper pole. Bowel and peritoneum: Interval placement of a rectal tube. The rectal contrast extends to the jejunum . Partial colectomy with intact anastomosis and no CT evidence of a stricture (). Transverse colo n is dilated measuring up to 6.3 cm. Small bowel is normal in caliber, without obstruction. No pneum atosis, pneumoperitoneum or portal venous gas. Lymph nodes: No central or retroperitoneal adenopathy. Vessels: No infrarenal aortic aneurysm. Mild scattered atherosclerotic calcification. PELVIS Reproductive organs: Unremarkable. Bladder: No wall thickness, accounting for underdistention. Pelvic lymph nodes: No pelvic adenopathy by size criteria. Bones: No aggressive osseous abnormality. No acute fractures. Multilevel degenerative changes of the spine. Other: No significant ventral or inguinal hernia. Tiny soft tissue left paraumbilical area of inflamm ation measuring 9 mm (). Right posterior abdominal wall fat-containing hernia measuring 4 x 2.3 c m (58, ). IMPRESSION: Evaluation of the visceral organs limited due to lack of intravenous contrast. 1.The rectal contrast extends to the jejunum. Partial colectomy with intact anastomosis and no CT eduardo dence of a stricture 2.Transverse colon is dilated measuring up to 6.3 cm. Small bowel is normal in caliber, without obstr uction. No pneumatosis, pneumoperitoneum or portal venous gas. 3.Cardiomegaly. Reviewed by: Lina Barbosa MD on 10/25/2023 5:40 PM PST Approved by: Lina Barbosa MD on 10/25/2023 5:40 PM PST Station ID: [id number]
== END 2023-10-25 11:07 | disposition home or self-care (01) ==
LOC: LAB 11:06
PROVIDERS: ATTEND Surgery
DX: R14.0 Abdominal distension (gaseous) (principal); K59.00 Constipation, unspecified; Z87.19 Personal history of other diseases of the digestive system; R93.3 Abnormal findings on diagnostic imaging of other parts of digestive tract
CPT/HCPCS: 36415; 74176; 82565; Q9963